=== PATIENT | female | born 1945 | race Caucasian/White ===

== ENCOUNTER 2021-11-20 12:42 | Outpatient (CLI) | payer MEDICARE, OTHER, SELFPAY ==
--- OUTSIDE RECORDS SUMMARY | 2021-11-20 12:44 | XMS_ITS | Encounter Summary ---
:1945 Author Organization [facility] Address [address] [place] [address]. [place] [address] Care Team Providers Name Role Phone Chele Mena MD Primary Care Provider [phone] Birgit Whipple MD Unavailable Dragan Ritter MD Unavailable Birgit Whipple MD Unavailable Reason for Visit Reason Comments Medication Refill PRIMIDONE 250 MG TABLET Encounter Details Date Type Department Care Team Description 04/08/2021 Refill [facility] Sarabjit Medication Refill [address] (PRIMIDONE 250 MG [phone] [place]) [place] [id number] (Wo rk) Social History Tobacco Use Types Packs/Day Years Used Date Never Smoker Smokeless Tobacco: Never Used Alcohol Use Standard Drinks/Week Comments No 0 (1 standard drink = 0.6 oz pure alcoho l) Sex Assigned at Date Recorded Female 04/04/2021 11:57 AM CLINICAL STAFF ANESTHESIOLOGIST documented as of this encounter Miscellaneous Notes Telephone Encounter - Shayna Bullard RN - 04/12/2021 11:26 AM CST PRIMIDONE 250 MG TABLET Last Written Prescription Date: 03/15/2021 Last Fill Quantity: 30, # refills: 0 Last Office Visit : 04/12/2021 Future Office visit: 03/20/2021 Routing refill request to provider for review/approval because: Is Pt taking 200 Mg's or 250 Mg's. Visit note from 04/11/2021 Mentions 200 Mg's AM and 200 Mg's PM But order from pharmacy is 250 Mg's Bedtime. Please send new updated order per Providers orders for Pt care. Thank you Shayna Bullard RN Central Triage Red Flags/Med Refills Plan 04/11/2021 - Continue Depakote 750 mg bid -Increase primidone 200 mg a.m. and 200 mg p.m. - Continue Lyrical 100-50-50 mg per day -??Obtain Depakote, primidone and Lyrica levels. - Follow-up in 1 year ?? ICAL STAFF ANESTHESIOLOGIST documented in this encounter Plan of Treatment Upcoming Encounters Date Type Specialty Care Team Description 03/20/2022 Virtual Visit Neurology Birgit Whipple MD [address] [place] [address] (Wo rk) documented as of this encounter Visit Diagnoses Diagnosis Essential tremor Essential and other specified forms of t remor documented in this encounter Care Teams Workforce Development Program Director Relationship Specialty Start Date End Date Chele Mena PCP - General Internal Medicine 11/28/12 MD [facility] [address] [place] [address] Birgit Whipple MD Neurology 06/16/14 Dragan Ritter MD Urology 06/10/17 [facility] [address] [id number] Birgit Whipple, Assigned Neuroscience 04/03/20 MD Provider [address] [place] [phone] documented as of this encounter
--- OUTSIDE RECORDS SUMMARY | 2021-11-20 12:44 | XMS_ITS | Encounter Summary ---
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 documented in this encounter Results (ABNORMAL) Symptomatic - 2019 Novel Coronavirus (COVID-19) (03/13/2021 9:18 AM MONTESSORI TEACHER) [facility] Method Time Signature COVID-19 Detected Not [facility]/14[facility]20[facility] Interpret[facility] (A) Detected 12:59 AM CENTRAL LAB MONTESSORI TEACHER Source Nares, left 03/14/2021 [facility] and right 12:59 AM CENTRAL LAB MONTESSORI TEACHER Specimen Anatomical Collection Method Collection Time Receive d Time (Source) Location / / Volume Laterality Swab (Source ENTIRE ANTERIOR Non-blood 03/13/2021 9:18 AM 2021 4:33 Required) NARIS / Unknown Collection / MONTESSORI TEACHER PM MONTESSORI TEACHER Unknown Narrative [facility] - 03/14/2021 12:59 AM MONTESSORI TEACHER Tested by Polymerase Chain Reaction (PCR ), Speedboat Operator-mediated amplification (TMA), or another nucleic acid amplifica tion test (NAAT). Andrew Garvey MD LAB_1 Performing Organization Address City/State/ZIP Code Phon e Number [facility] [address] [place] [phone] documented in this encounter Visit Diagnoses Diagnosis Contact with and (suspected) exposure to covid-19 documented in this encounter Additional Health Concerns Infection Onset Date Last Indicated Resolved Time R/O COVID19 03/13/2021 03/13/2021 03/14/2021 12:59 AM MONTESSORI TEACHER documented as of this encounter Care Teams Gas Systems Worker Relationship Specialty Start Date End Date Andrew Garvey MD PCP - General 10/05/[address] [place] [address] documented as of this encounter
--- OUTSIDE RECORDS SUMMARY | 2021-11-20 12:44 | XMS_ITS | Encounter Summary ---
:1945 Author Organization [facility] Address [address] [place] [address] Care Team Providers Name Role Phone Andrew Garvey MD Primary Care Provider Reason for Visit Reason Comments COVID Test Results Encounter Details Date Type Department Care Team Description 03/14/2021 Telephone [place] [facility] Andrew Garvey, COVID Test Results [address] [place] [address] [phone] [place], [place] [address] (Wo rk) Social History Tobacco Use Types Packs/Day Years Used Date Smoking Tobacco: Never Assessed Sex Assigned at Date Recorded Female 01/02/2021 9:25 PM BEVELER documented as of this encounter Nursing Notes Ingrid Aquino RN - 03/14/2021 8:07 AM CST Patient has viewed their result online and has covid risk score <4. Closing encounter. LER Ching Montiel - 03/14/2021 6:52 AM CST COVID-19 Interpretation (no units) Date Value 03/13/2021 Detected (A) LER documented in this encounter Plan of Treatment Not on filedocumented as of this encounter Visit Diagnoses Not on filedocumented in this encounter Additional Health Concerns Infection Onset Date Last Indicated Resolved Time R/O COVID19 03/13/2021 03/13/2021 03/14/2021 12:59 AM BEVELER COVID19 03/13/2021 03/13/2021 04/02/2021 3:17 AM BEVELER documented as of this encounter Care Teams Or Director Relationship Specialty Start Date End Date Andrew Garvey MD PCP - General 10/05/[address] [place] [address] documented as of this encounter
--- OUTSIDE RECORDS SUMMARY | 2021-11-20 12:44 | XMS_ITS | Encounter Summary ---
:1945 Author Organization [facility] Address [address] [place] [address]. [place] [address] Care Team Providers Name Role Phone Chele Mena MD Primary Care Provider Birgit Whipple MD Unavailable Dragan Ritter MD Unavailable Birgit Whipple MD Unavailable Reason for Visit Reason Comments Medication Refill Encounter Details Date Type Department Care Team Description 03/12/2021 Refill [facility] Birgit Whipple, Medication Refill [address]ana MD [address] [place], [place] [phone] [place] [address] (Wo rk) Social History Tobacco Use Types Packs/Day Years Used Date Never Smoker Smokeless Tobacco: Never Used Alcohol Use Standard Drinks/Week Comments No 0 (1 standard drink = 0.6 oz pure alcoho l) Sex Assigned at Date Recorded Female 04/04/2021 11:57 AM 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 Not all labs required. Scheduling has been notified to contact the pt for appointment. E CREWMEMBER/MLRS SERGEANT documented in this encounter Plan of Treatment Upcoming Encounters Date Type Specialty Care Team Description 03/20/2022 Virtual Visit Neurology Birgit Whipple MD [address] [place] [phone] (Wo rk) documented as of this encounter Visit Diagnoses Diagnosis Essential tremor Essential and other specified forms of t remor documented in this encounter Care Teams Material Handling Equipment Stevedore Relationship Specialty Start Date End Date Chele Mena PCP - General Internal Medicine 11/28/12 MD Hakan [facility] [address] [place] [address] Birgit Whipple MD Neurology 06/16/14 Dragan Ritter MD Urology 06/10/17 [facility] [address] [address] Birgit Whipple, Assigned Neuroscience 04/03/20 MD Provider [address] [place] [address] documented as of this encounter
--- OUTSIDE RECORDS SUMMARY | 2021-11-20 12:44 | XMS_ITS | Encounter Summary ---
:1945 Author Organization [facility] Address [address] [place] [address]. [place] [address] Care Team Providers Name Role Phone Chele Mena MD Primary Care Provider Birgit Whipple MD Unavailable Dragan Ritter MD Unavailable Birgit Whipple MD Unavailable Reason for Visit Reason Onset Date Comments Refill Request 03/16/2021 Encounter Details Date Type Department Care Team Description 03/16/2021 MyC Refill [facility] Birgit Whipple, Refill Request [address]ana MD [address] [place], [place] [phone] [place] [address] (Wo rk) Social History Tobacco Use Types Packs/Day Years Used Date Never Smoker Smokeless Tobacco: Never Used Alcohol Use Standard Drinks/Week Comments No 0 (1 standard drink = 0.6 oz pure alcoho l) Sex Assigned at Date Recorded Female 04/04/2021 11:57 AM PHYSICIST ACOUSTICS documented as of this encounter Miscellaneous Notes Telephone Encounter - Shawna Evans RN - 03/16/2021 1:38 PM CST Duplicate request primidone (MYSOLINE) 250 MG tablet 30 tablet 0 03/15/2021 No Sig - Route: Take 1 tablet (250 mg) by mouth At Bedtime For additional refills, please schedule a follow-up appointment. - Oral Sent to pharmacy as: Primidone 250 MG Oral Tablet (MYSOLINE) Class: E-Prescribe Order: [id number] E-Prescribing Status: Receipt confirmed by pharmacy (03/15/2021 10:58 AM PHYSICIST ACOUSTICS) Medication Administration Instructions For additional refills, please schedule a follow-up appointment. Pharmacy [facility] [address] [place] [facility] [address] [facility] Patient notified via [employer] ICIST ACOUSTICS documented in this encounter Plan of Treatment Upcoming Encounters Date Type Specialty Care Team Description 03/20/2022 Virtual Visit Neurology Birgit Whipple MD [address] [place] [phone] (Wo rk) documented as of this encounter Visit Diagnoses Diagnosis Essential tremor Essential and other specified forms of t remor documented in this encounter Care Teams Talent Development Analyst Relationship Specialty Start Date End Date Chele Mena PCP - General Internal Medicine 11/28/12 MD [facility] [address] [place] [address] Birgit Whipple MD Neurology 06/16/14 Dragan Ritter MD Urology 06/10/17 [facility] [address] [address] Birgit Whipple Assigned Neuroscience 04/03/20 MD Provider [address] [place] [phone] documented as of this encounter
--- OUTSIDE RECORDS SUMMARY | 2021-11-20 12:44 | XMS_ITS | Encounter Summary ---
:1945 Author Organization [facility] Address [address] [place] [address]. [place] [address] Care Team Providers Name Role Phone Chele Mena MD Primary Care Provider Birgit Whipple MD Unavailable Dragan Ritter MD Unavailable Birgit Whipple MD Unavailable Reason for Visit Reason Onset Date Comments Refill Request 09/28/2021 primidone (MYSOLINE) 50 MG tablet Encounter Details Date Type Department Care Team Description 09/28/2021 Refill [facility] Sarabjit Refill Request [address] (primidone (MYSOLINE) [address] MG tablet) [place] [address] [phone] (Wo rk) Social History Tobacco Use Types Packs/Day Years Used Date Never Smoker Smokeless Tobacco: Never Used Alcohol Use Standard Drinks/Week Comments No 0 (1 standard drink = 0.6 oz pure alcoho l) Sex Assigned at Date Recorded Female 04/04/2021 11:57 AM YOKER documented as of this encounter Miscellaneous Notes Telephone Encounter - Antoinette Davis RN - 10/02/2021 12:55 PM CDT primidone (MYSOLINE) 50 MG tablet Last Written Prescription Date: 04/11/21 Last Fill Quantity: 186, # refills: 6 Last Office Visit :04/11/21 Future Office visit: 03/20/22 Medium drug alert Warnings Override History for primidone (MYSOLINE) 50 MG tablet [[id number]] Overridden by Birgit Whipple MD on Apr 11, 2021 5:49 PM Drug-Drug 1. BARBITURATES / VALPROIC ACID [Level: Moderate] Other Orders: divalproex sodium extended-release (DEPAKOTE ER) 250 MG 24 hr tablet Overridden by Birgit Whipple MD on Apr 11, 2021 12:38 PM Drug-Drug 1. BARBITURATES / VALPROIC ACID [Level: Moderate] Other Orders: divalproex sodium extended-release (DEPAKOTE ER) 250 MG 24 hr tablet Allergy/Contraindication 1. OXCARBAZEPINE [Level: Cross-sensitive Class Match] 2. TRILEPTAL [Level: Cross-sensitive Class Match] Filling per [facility] medication refill protocols - seizure medications. Not all labs required. documented in this encounter Plan of Treatment Upcoming Encounters Date Type Specialty Care Team Description 03/20/2022 Virtual Visit Neurology Birgit Whipple MD [address] [place] [phone] (Wo rk) documented as of this encounter Visit Diagnoses Diagnosis Tremor Abnormal involuntary movements documented in this encounter Care Teams Care Trainer Relationship Specialty Start Date End Date Chele Mena PCP - General Internal Medicine 11/28/12 MD [facility] [address] [place] [address] Birgit Whipple MD Neurology 06/16/14 Dragan Ritter MD Urology 06/10/17 [facility] [id number] [place] [address] Birgit Whipple, Assigned Neuroscience 04/03/[address] [place] [address] documented as of this encounter
--- OUTSIDE RECORDS SUMMARY | 2021-11-20 12:44 | XMS_ITS | Encounter Summary ---
:1945 Author Organization [facility] Address [address] [place] [address]. 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 How would you like to obtain your AVS? MyChart If the video visit is dropped, the invitation should be resent by: Text to cell phone: [phone] Will anyone else be joining your video visit? Video Start Time: 12:12 Video-Visit Details Type of service: Video Visit Video End Time: 12:35 Originating Location (pt. Location): Home Distant Location (provider location): [facility] Platform used for Video Visit: [employer] Progress Note Patient: Kisha Gandara : 1945 Age: [age] year old Today's Virtual Visit: 04/11/2021 Epilepsy Data: Patient History Primary Epileptologist/Provider: (P) Birgit Whipple M.D. Epilepsy Syndrome: (P) Localization-related epilepsy unspecified Age of Onset: (P) 54 Etiology ??: (P) Unknown Other Relevant Dx/ Issues: (P) Inpatient evaluations 01/04 and 02/03. 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 History of Depakote-induced hyperammonemia. ?? Tests/Surgery History Last EEG: (P) 01/30/10 Last MRI: (P) 01/10/10 ?? Seizure Record Seizure Type 1: (P) Complex partial seizures unspecified Seizure Type 2: (P) Tonic-clonic seizures History of Present Illness: Kisha is participating in this virtual visit for a follow up on her seizures. She is accompanied by her who is contributing to the history. She has not had any seizures since last visit that she or her have noted. She is taking Depakote 750 mg twice a day. Tremors: she believes they only happen once in a while, but her believes they are worse. It's worse in her right hand. It usually happens when she is doing something, like when she is eating. She had Covid 02/2021. She did not have fever, or breathing difficulty. She had cough and sore throat. Her got it before her. She is fully vaccinated. Current Outpatient Medications Medication Sig Dispense Refill ??? ACETAMINOPHEN PO ??? Ascorbic Acid (VITAMIN C PO) ??? aspirin 81 MG tablet Take by mouth daily ??? blood glucose monitoring (SOFTCLIX) lancets 1 each by In Vitro route Use to test blood sugar four times daily or as directed. ??? OWSDUFA-[id number]-OVXKSFX D PO Take by mouth daily ??? Cholecalciferol (VITAMIN D3) 1000 units CAPS 1,000 capsules ??? clotrimazole (LOTRIMIN) 1 % cream Apply topically 2 times daily as needed ??? divalproex sodium extended-release (DEPAKOTE ER) 250 MG 24 hr tablet Take 3 tablets (750 mg) by mouth 2 times daily - Oral(Due for office visit before next refill,Please call [phone] to schedule) Thank you 540 tablet 3 ??? Glucose Blood (ACCU-CHEK BRAULIO PLUS ) ??? insulin glargine (BASAGLAR KWIKPEN) 100 UNIT/ML pen Inject Subcutaneous daily ??? Insulin Pen Needle (PEN NEEDLES 3) 31G X 5 MM MISC ??? lisinopril (PRINIVIL,ZESTRIL) 10 MG tablet Take 10 mg by mouth 2 times daily ??? metoprolol (LOPRESSOR) 50 MG tablet Take 50 mg by mouth 2 times daily ??? Multiple Vitamin (DAILY MULTIVITAMIN PO) ??? nystatin (NYSTOP) 445726 UNIT/GM POWD APPLY 1 APPLICATION TOPICALLY TWICE DAILY. ??? [place]-3 Fatty Acids (FISH OIL PO) ??? pregabalin (LYRICA) 50 MG capsule TAKE 2 CAPSULES BY MOUTH IN THE MORNING, 1 CAP AT NOON, AND 1 CAP IN THE EVENING. 124 capsule 2 ??? pregabalin (LYRICA) 50 MG capsule Take 2 capsules in the morning, 1 capsule in the afternoon, and 1 capsule at night 20 capsule 0 ??? primidone (MYSOLINE) 250 MG tablet Take 1 tablet (250 mg) by mouth At Bedtime For additional refills, please schedule a follow-up appointment. 30 tablet 0 ??? simvastatin (ZOCOR) 20 MG tablet Take by mouth daily ??? tolterodine ER (DETROL LA) 4 MG 24 hr capsule Take 4 mg by mouth daily ??? acetaminophen-codeine (TYLENOL #3) 300-30 MG per tablet Take 1-2 tablets by mouth daily as needed for moderate pain ??? amoxicillin (AMOXIL) 500 MG capsule Take 2,000 mg by mouth daily TAKE BEFORE DENTIST APPOINTMENTS ??? insulin aspart (NOVOLOG FLEXPEN) 100 UNIT/ML soln Inject Subcutaneous 3 times daily (with meals) ??? insulin glargine (LANTUS SOLOSTAR) 100 UNIT/ML PEN Inject Subcutaneous At Bedtime (Patient not taking: Reported on 04/11/2021) ??? LANsoprazole (PREVACID) 30 MG capsule Take by mouth daily ??? naproxen sodium 220 MG capsule Take 220 mg by mouth 2 times daily ??? oxybutynin (DITROPAN-XL) 5 MG 24 hr tablet Take 5 mg by mouth Medication Notes: AED Medication Compliance: compliant most of the time Assessment and Plan: ?? 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 ??She is taking Depakote 750 mg bid. She is also taking Lyrica 100-50-50 mainly for neuropathy and primidone 250 mg daily for tremors. ?? 2. Tremors: essential tremors, tremor??worsened by Depakote and??better on primidone, but according to her has been worse recently. I discussed increasing her primidone by 50 mg and change the schedule to twice a day. ?? 3. Diabetic neuropathy:??EMG/NCS showed mild to moderate sensorimotor polyneuropathy, which is likely due to her diabetes. She also has?? bilateral L5-S1 radiculopathy. We will monitor the symptoms. Since starting Lyrica she does not have pain but has some tingling in her toes. She does not like to inc rease her Lyrica. 4. Sleep apnea: She is currently using a mouth guard instead of CPAP. She sometimes feels tired during the day and takes a nap. Her has not noted frequent arousals at night. ?? - Continue Depakote 750 mg bid -Increase primidone 200 mg a.m. and 200 mg p.m. - Continue Lyrical 100-50-50 mg per day - Obtain Depakote, primidone and Lyrica levels. - Follow-up in 1 year As described above, I met with the patient and family for 23 minutes and during this time counselingwas greater than 50% of the visit time. This note was created in part by the use of [employer] voice recognition system. Inadvertent grammaticalerrors and typographical errors may still exist. Birgit Whipple MD L MANAGER documented in this encounter Plan of Treatment Upcoming Encounters Date Type Specialty Care Team Description 03/20/2022 Virtual Visit Neurology Birgit Whipple MD [address] [place] [phone] (Wo rk) Scheduled Orders Name Type Priority Associated Diagnoses Order S chedule Valproic acid Lab Routine Focal epilepsy (H) Expected : 04/11/2021 (Approximate), Expires: 2022 Valproic acid free Lab Routine Focal epilepsy (H) Exp ected: 04/11/2021 (Approximate), Expires: 2022 Primidone level Lab Routine Tremor Expected: (Approximate), Expires: 2022 Pregabalin Level: Lab Routine Diabetic polyneuropathy Expected: 04/11/2021 Random associated with diabetes (Ap proximate), mellitus due to underlying E xpires: 04/11/2022 condition (H) documented as of this encounter Visit Diagnoses Diagnosis Tremor - Primary Abnormal involuntary movements 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 (H) Focal epilepsy (H) Localization-related (focal) (partial) e pilepsy and epileptic syndromes with simple partial seizures, without mention of int ractable epilepsy Localization-related epilepsy (H) Localization-related (focal) (partial) e pilepsy and epileptic syndromes with simple partial seizures, without mention of int ractable epilepsy documented in this encounter Care Teams Housekeeping Manager Relationship Specialty Start Date End Date Chele Mena PCP - General Internal Medicine 11/28/12 MD [facility] [address] [place] [address] Birgit Whipple MD Neurology 06/16/14 Dragan Ritter MD Urology 06/10/17 [facility] [address] [place], [place] [address] Birgit Whipple, Assigned Neuroscience 04/03/20 MD Provider [address] [place] [address] documented as of this encounter
--- OUTSIDE RECORDS SUMMARY | 2021-11-20 12:44 | XMS_ITS | Encounter Summary ---
:1945 Author Organization [facility] Address [address] [place] [address]. [place] [address] Care Team Providers Name Role Phone Chele Mena MD Primary Care Provider [phone] Birgit Whipple MD Unavailable Dragan Ritter MD Unavailable Birgit Whipple MD Unavailable Reason for Visit Reason Comments Medication Refill PREGABALIN 50 MG CAPSULE Encounter Details Date Type Department Care Team Description 11/08/2021 Refill [facility] Sarabjit Medication Refill [address] (PREGABALIN 50 MG [address] [place]) [place] [phone] (Wo rk) Social History Tobacco Use Types Packs/Day Years Used Date Never Smoker Smokeless Tobacco: Never Used Alcohol Use Standard Drinks/Week Comments No 0 (1 standard drink = 0.6 oz pure alcoho l) Sex Assigned at Date Recorded Female 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 documented as of this encounter Miscellaneous Notes Telephone Encounter - Shayna Bullard RN - 11/09/2021 7:05 AM CDT PREGABALIN 50 MG CAPSULE Last Written Prescription Date: 04/11/2021 Last Fill Quantity: 124, # refills: 5 Last Office Visit : 04/11/2021 Future Office visit: 03/20/2022 Routing refill request to provider for review/approval because: Drug not on the [facility], [facility] or [facility] refill protocol or controlled substance Shayna Bullard RN Central Triage Red Flags/Med Refills documented in this encounter Plan of Treatment Upcoming Encounters Date Type Specialty Care Team Description 03/20/2022 Virtual Visit Neurology Birgit Whipple MD [address] [place] [address] [phone] (Wo rk) documented as of this encounter Visit Diagnoses Diagnosis 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 (H) documented in this encounter Care Teams Support Service Tech Relationship Specialty Start Date End Date Chele Mena PCP - General Internal Medicine 11/28/12 MD [facility] [address] [place] [address] Birgit Whipple MD Neurology 06/16/14 Dragan Ritter MD Urology 06/10/17 [facility] [address] [place] [address] Birgit Whipple Assigned Neuroscience 04/03/20 MD Provider [address] [place] [address] [phone] documented as of this encounter
--- OUTSIDE RECORDS SUMMARY | 2021-11-20 12:44 | XMS_ITS | Encounter Summary ---
:1945 Author Organization [facility] Address [address] [place] [address]. [place] [address] Care Team Providers Name Role Phone Chele Mena MD Primary Care Provider Birgit Whipple MD Unavailable Dragan Ritter MD Unavailable Birgit Whipple MD Unavailable Encounter Details Date Type Department Care Team Description 04/13/2021 Orders Only [facility] Birgit Whipple, [address] Angela Arana MD [address] [place] [phone] [place], [place] [phone] (Wo rk) Social History Tobacco Use Types Packs/Day Years Used Date Never Smoker Smokeless Tobacco: Never Used Alcohol Use Standard Drinks/Week Comments No 0 (1 standard drink = 0.6 oz pure alcoho l) Sex Assigned at Date Recorded Female 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 documented as of this encounter Plan of Treatment Upcoming Encounters Date Type Specialty Care Team Description 03/20/2022 Virtual Visit Neurology Birgit Whipple MD [address] [place] [address] [phone] (Wo rk) documented as of this encounter Visit Diagnoses Not on filedocumented in this encounter Care Teams Sheeting Puller Relationship Specialty Start Date End Date Chele Mena PCP - General Internal Medicine 11/28/12 MD Hakan [facility] [address] [place] [address] Birgit Whipple MD Neurology 06/16/14 Dragan Ritter MD Urology 06/10/17 [facility] [address] [phone] Birgit Whipple, Assigned Neuroscience 04/03/20 MD Provider [address] [place] [address] documented as of this encounter
--- OUTSIDE RECORDS SUMMARY | 2021-11-20 12:44 | XMS_ITS | Clinical Summary ---
:1945 Author Organization [facility] Address [address] [place] [address]. [place] [address] Care Team Providers Name Role Phone Chele Mena MD Primary Care Provider [phone] Birgit Whipple MD Unavailable Dragan Ritter MD Unavailable Birgit Whipple MD Unavailable Allergies Active Allergy Reactions Severity Noted Date Comments Bee Venom 06/19/2013 Lacosamide Other (See Comments) 02/21/2016 Oxcarbazepine Rash Low 02/21/2016 Seasonal Allergies 06/19/2013 Trileptal Rash Low 11/28/2012 Vimpat 11/28/2012 Delirium. Medications Medication Sig Dispensed Refills Start End Date Status Date simvastatin (ZOCOR) Take by mouth 0 Active 20 MG tablet daily metoprolol Take 50 mg by 0 Activ e (LOPRESSOR) 50 MG mouth 2 times tablet daily lisinopril Take 10 mg by 0 Activ e (PRINIVIL,ZESTRIL) mouth 2 times 10 MG tablet daily Ascorbic Acid 0 Active (VITAMIN C PO) [place]-3 Fatty Acids 0 Active (FISH OIL PO) Multiple Vitamin 0 Act hortencia (DAILY MULTIVITAMIN PO) aspirin 81 MG Take by mouth 0 Ac tive tablet daily LANsoprazole Take by mouth 0 Act hortencia (PREVACID) 30 MG daily capsule [id number] Take by mouth 0 Active ITAMIN D PO daily amoxicillin Take 2,000 mg by 0 A ctive (AMOXIL) 500 MG mouth daily TAKE capsule BEFORE DENTIST APPOINTMENTS clotrimazole Apply topically 0 A ctive (LOTRIMIN) 1 % 2 times daily as cream needed naproxen sodium 220 Take 220 mg by 0 Active MG capsule mouth 2 times daily ACETAMINOPHEN PO 0 Act hortencia acetaminophen-codei Take 1-2 tablets 0 Active ne (TYLENOL #3) by mouth daily 300-30 MG per as needed for tablet moderate pain blood glucose 1 each by In 0 Act hortencia monitoring Vitro route Use (SOFTCLIX) lancets to test blood sugar four times daily or as directed. Insulin Pen Needle 0 A ctive (PEN NEEDLES 05/10) 31G X 5 MM MISC Glucose Blood 0 Active (ACCU-CHEK BRAULIO PLUS ) insulin aspart Inject 0 Activ e (NOVOLOG FLEXPEN) Subcutaneous 3 100 UNIT/ML soln times daily (with meals) insulin glargine Inject 0 Act hortencia (LANTUS SOLOSTAR) Subcutaneous At 100 UNIT/ML PEN Bedtime Cholecalciferol 1,000 capsules 0 Active (VITAMIN D3) 1000 units CAPS oxybutynin Take 5 mg by 0 Active (DITROPAN-XL) 5 MG mouth 8 24 hr tablet nystatin (NYSTOP) APPLY 1 0 Ac tive [id number] UNIT/GM POWD APPLICATION 8 TOPICALLY TWICE DAILY. insulin glargine Inject 0 Act hortencia (BASAGLAR KWIKPEN) Subcutaneous 100 UNIT/ML pen daily tolterodine ER Take 4 mg by 0 Ac tive (DETROL LA) 4 MG 24 mouth daily hr capsule divalproex sodium Take 3 tablets 540 tablet 3 Active extended-release (750 mg) by 2 (DEPAKOTE ER) 250 mouth 2 times MG 24 hr daily - Oral tabletIndications: Localization-relate d epilepsy (H) primidone TAKE 2 TABS IN 186 tablet 6 Acti ve (MYSOLINE) 50 MG THE MORNING AND 2 tabletIndications: 4 TABS IN THE Tremor EVENING pregabalin (LYRICA) TAKE 2 CAPSULES 360 capsule 3 Active 50 MG BY MOUTH IN THE 2 capsuleIndications: MORNING, 1 CAP Diabetic AT NOON, AND 1 polyneuropathy CAP IN THE associated with EVENING. diabetes mellitus due to underlying condition (H) pregabalin (LYRICA) TAKE 2 CAPSULES 124 capsule 5 Discontinued 50 MG BY MOUTH IN THE 2 22 capsuleIndications: MORNING, 1 CAP Diabetic AT NOON, AND 1 polyneuropathy CAP IN THE associated with EVENING. diabetes mellitus due to underlying condition (H) Active Problems Problem Noted Date Epilepsy 02/10/2014 Encounters Date Type Specialty Care Team Description 11/08/2021 Refill Neurology Birgit Whipple MD Tx dication Refill (PREGABALIN 50 MG CAPSULE) 10/30/2021 Refill Neurology Birgit Whipple MD Me dication Refill 09/28/2021 Refill Neurology Birgit Whipple MD Re fill Request (primidone (MYSOLINE) 50 M G tablet) from Last 3 Months Immunizations Name Administration Dates Next Due FLUAD(HD)65+ QUAD 11/22/2020 Flu, Unspecified 01/25/2018 W8d7-10 Novel Flu 11/17/2009 HepA-Adult 01/25/2021 Influenza (High Dose) 3 valent 11/14/2018, 12/09/2017, 11/09 vaccine Influenza Vaccine, 6+MO IM 11/09/2015, 12/09/2014, 4, (QUADRIVALENT W/PRESERVATIVES) 11/21/2012 Pneumo Conj 13-V (2010&after) 04/07/2015 Pneumococcal 23 valent 10/23/2017, 12/01/2013, 09/08/2009, 03/11/2009 Td (Adult), Adsorbed 12/05/2018 Tdap (Adacel,Boostrix) 11/21/2012 Typhoid IM 01/25/2021 Zoster vaccine recombinant adjuvanted 11/13/2018 (SHINGRIX) Zoster vaccine, live 12/09/2012 Social History Tobacco Use Types Packs/Day Years Used Date Never Smoker Smokeless Tobacco: Never Used Tobacco Cessation: Counseling Given: No Alcohol Use Standard Drinks/Week Comments No 0 (1 standard drink = 0.6 oz pure alcoho l) Sex Assigned at Date Recorded Female 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 Last Filed Vital Signs Vital Sign Reading Time Taken Comments Blood Pressure 119/55 04/06/2019 10:05 AM SOLAR POWER INSTALLER Pulse 67 04/06/2019 10:05 AM SOLAR POWER INSTALLER Temperature 36.4 ??C (97.5 ??F) 02/06/2018 9:19 AM SOLAR POWER INSTALLER Respiratory Rate 16 06/10/2017 11:01 AM CDT Oxygen Saturation - - Inhaled Oxygen Concentration - - Weight 122.4 kg (269 lb 12.8 oz) 04/06/2019 10:05 AM SOLAR POWER INSTALLER Height 165.1 cm (5' 5) 02/06/2018 9:19 AM SOLAR POWER INSTALLER Body Mass Index 44.9 02/06/2018 9:19 AM SOLAR POWER INSTALLER Plan of Treatment Upcoming Encounters Date Type Specialty Care Team Description 03/20/2022 Virtual Visit Neurology Birgit Whipple MD [address] [place] [address] (Wo rk) Health Maintenance Due Date Last Done Comments ADVANCE CARE PLANNING 1945 ANNUAL REVIEW OF HM ORDERS 1945 DEXA 1945 DIABETIC FOOT EXAM 1945 EYE EXAM 1945 LIPID 1945 MICROALBUMIN 1945 HEPATITIS C SCREENING 09/01/1963 MEDICARE ANNUAL WELLNESS 2010 VISIT A1C 07/15/2018 04/17/2018 BMP 04/17/2019 04/17/2018 PHQ-2 (once per calendar 02/25/2021 03/29/2020, 04/06/2019, year) 02/06/2018, Additional history exists COVID-19 Vaccine (4 - 04/02/2021 11/30/2020, 05/07/2020, Booster for Pfizer series) 04/16/2020 INFLUENZA VACCINE (#1) 2021 11/22/2020, 11/14/2018, 01/25/2018, Additional history exists FALL RISK ASSESSMENT 04/11/2022 04/11/2021, 04/06/2019, 06/10/2017 DTAP/TDAP/TD IMMUNIZATION 12/05/2028 12/05/2018, 11/21/2012 , (3 - Td or Tdap) 11/21/2012 Pneumococcal Vaccine: 65+ Completed 10/23/2017, 04/07/2015 , Years 12/01/2013, Additional history exists ZOSTER IMMUNIZATION Completed 11/13/2018, 08/07/2018, 10/23/2017, Additional history exists IPV IMMUNIZATION Aged Out No longer eligi ble based on patient 's age to complete this topic MENINGITIS IMMUNIZATION Aged Out No longe r eligible based on patient 's age to complete this topic Insurance Payer Benefit Plan / Subscriber ID Effective Dates Phone Addre ss Type Group MEDICA MEDICA SELECT [id number] 2020-Presen [phone] [place] [address] [address] [place] [address] MEDICARE MEDICARE [id number] 2010-Presen [phone] ATTN CL AIMS Medicare t 0 [address] [place] [address] Kisha Gandara Personal/Famil Self 1945 [phone] (Home) [place] [address] Care Teams Cuff Slitter Relationship Specialty Start Date End Date Chele Mena PCP - General Internal Medicine 11/28/12 MD [facility] [address] [place] [address] Birgit Whipple MD Neurology 06/16/14 Dragan Ritter MD Urology 06/10/17 [facility] [id number] [place], [place] [phone] Birgit Whipple, Assigned Neuroscience 04/03/[address] [place] [address] [phone]
--- OUTSIDE RECORDS SUMMARY | 2021-11-20 12:44 | XMS_ITS | Encounter Summary ---
:1945 Author Organization [facility] Address [address] [place] [address]. [place] [address] Care Team Providers Name Role Phone Chele Mena MD Primary Care Provider [phone] Birgit Whipple MD Unavailable Dragan Ritter MD Unavailable Birgit Whipple MD Unavailable Reason for Visit Reason Comments Medication Refill PREGABALIN 50 MG CAPSULE Encounter Details Date Type Department Care Team Description 01/30/2021 Refill [facility] Sarabjit Medication Refill [address] M D (PREGABALIN 50 MG [address] [place]) [place] [phone] (Wo rk) Social History Tobacco Use Types Packs/Day Years Used Date Never Smoker Smokeless Tobacco: Never Used Alcohol Use Standard Drinks/Week Comments No 0 (1 standard drink = 0.6 oz pure alcoho l) Sex Assigned at Date Recorded Female 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 documented as of this encounter Miscellaneous Notes Telephone Encounter - Shayna Bullard RN - 01/31/2021 4:45 AM CST PREGABALIN 50 MG CAPSULE Last Written Prescription Date: 12/05/2020 Last Fill Quantity: 124, # refills: 1 Last Office Visit : 03/29/2020 Future Office visit: None Routing refill request to provider for review/approval because: Drug not on the [facility], [facility] or [facility] refill protocol or controlled substance Shayna Bullard RN Central Triage Red Flags/Med Refills EED OIL TEMPERER documented in this encounter Plan of Treatment Upcoming Encounters Date Type Specialty Care Team Description 03/20/2022 Virtual Visit Neurology Birgit Whipple MD [address] [place] [address] [phone] (Wo rk) documented as of this encounter Visit Diagnoses Diagnosis 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 (H) documented in this encounter Care Teams Defence Intelligence Analyst Relationship Specialty Start Date End Date Chele Mena PCP - General Internal Medicine 11/28/12 MD Hakan [facility] [address] [place] [address] Birgit Whipple MD Neurology 06/16/14 Dragan Ritter MD Urology 06/10/17 [facility] [address] [address] Birgit Whipple Assigned Neuroscience 04/03/20 MD Provider [address] [place] [address] [phone] documented as of this encounter
--- OUTSIDE RECORDS SUMMARY | 2021-11-20 12:44 | XMS_ITS | Encounter Summary ---
:1945 Author Organization [facility] Address [address] [place] [address]. [place] [address] Care Team Providers Name Role Phone Chele Mena MD Primary Care Provider [phone] Birgit Whipple MD Unavailable Dragan Ritter MD Unavailable Birgit Whipple MD Unavailable Reason for Visit Reason Comments Medication Refill Encounter Details Date Type Department Care Team Description 10/30/2021 Refill [facility] Birgit Whipple, Medication Refill [address] Angela Arana MD [address] [place], [place] [address] [place], [place] [address]258[address] (Wo rk) Social History Tobacco Use Types Packs/Day Years Used Date Never Smoker Smokeless Tobacco: Never Used Alcohol Use Standard Drinks/Week Comments No 0 (1 standard drink = 0.6 oz pure alcoho l) Sex Assigned at Date Recorded Female 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 documented as of this encounter Plan of Treatment Upcoming Encounters Date Type Specialty Care Team Description 03/20/2022 Virtual Visit Neurology Birgit Whipple MD [address] [place], [place] [address] (Wo rk) documented as of this encounter Visit Diagnoses Diagnosis Tremor Abnormal involuntary movements documented in this encounter Care Teams Vegetable Sorter Relationship Specialty Start Date End Date Chele Mena PCP - General Internal Medicine 11/28/12 MD Hakan [facility] [address] [place] [address] iBrgit Whipple MD Neurology 06/16/14 Dragan Ritter MD Urology 06/10/17 [facility] [address] [phone] Birgit Whipple, Assigned Neuroscience 04/03/20 MD Provider [address] [place] [address] [phone] documented as of this encounter
--- OUTSIDE RECORDS SUMMARY | 2021-11-20 12:44 | XMS_ITS | Encounter Summary ---
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
--- OUTSIDE RECORDS SUMMARY | 2021-11-20 12:44 | XMS_ITS | Encounter Summary ---
:1945 Author Organization [facility] Address [address] [place] [address] Care Team Providers Name Role Phone Andrew Garvey MD Primary Care Provider Encounter Details Date Type Department Care Team Description 03/13/2021 Notes/Orders [employer] [facility] Andrew Garvey Contact w [facility] MD Mitch (suspected) exposure [address] to covid-19 [place], [place] [address] [phone] [place], [place] [address] Social History Tobacco Use Types Packs/Day Years Used Date Smoking Tobacco: Never Assessed Sex Assigned at Date Recorded Female 01/02/2021 9:25 PM DIRECTOR OF RETENTION documented as of this encounter Plan of Treatment Not on filedocumented as of this encounter Results (ABNORMAL) Symptomatic - 2019 Novel Coronavirus (COVID-19) (03/13/2021 9:18 AM DIRECTOR OF RETENTION) [facility] Method Time Signature COVID-19 Detected Not 03/14/2021 [facility] Interpretation (A) Detected 12:59 AM CENTRAL LAB DIRECTOR OF RETENTION Source Nares, left 03/14/2021 [facility] and right 12:59 AM CENTRAL LAB DIRECTOR OF RETENTION Specimen Anatomical Collection Method Collection Time Receive d Time (Source) Location / / Volume Laterality Swab (Source ENTIRE ANTERIOR Non-blood 03/13/2021 9:18 AM 2021 4:33 Required) NARIS / Unknown Collection / DIRECTOR OF RETENTION PM DIRECTOR OF RETENTION Unknown Narrative [facility] - 03/14/2021 12:59 AM DIRECTOR OF RETENTION Tested by Polymerase Chain Reaction (PCR ), Accountant-mediated amplification (TMA), or another nucleic acid amplifica tion test (NAAT). Andrew Garvey MD LAB_1 Performing Organization Address City/State/ZIP Code Phon e Number [facility] [address] [address] documented in this encounter Visit Diagnoses Diagnosis Contact with and (suspected) exposure to covid-19 documented in this encounter Care Teams Compo Conveyor Operator Relationship Specialty Start Date End Date Andrew Garvey MD PCP - General 10/05/[address] [place] [address] documented as of this encounter
--- OUTSIDE RECORDS SUMMARY | 2021-11-20 12:44 | XMS_ITS | Clinical Summary ---
:1945 Author Organization [facility] Address [address] [address] Care Team Providers Name Role Phone Andrew Garvey MD Primary Care Provider Source Comments You are receiving this document as you are listed as the primary care provider,follow-up provider, or the patient has been referred to you for consultation.This is in compliance with the Medicare and Medicaid EHR Incentive Program,which states Providers who transition their patient to another setting of careor provider of care or refers their patient to another provider of care shouldprovide summarycare record for each transition of care or referral. madKast Allergies Active Allergy Reactions Severity Noted Date Comments Bee Venom Other, see comments 01/25/2021 Lacosamide Other, see comments 12/21/2020 Oxcarbazepine Hives, Rash High 12/27/2009 Medications Medication Sig Dispensed Refills Start Date End Date Status acetaminophen 0 Active (ACETAMINOPHEN 8 HOUR) 650 MG controlled release tablet aspirin EC (ASPIR-LOW) 0 Active 81 MG enteric coated tablet divalproex (DEPAKOTE ER) 0 11/05/2020 Active 250 MG 24 hour release tablet ACCU-CHEK GUIDE test 0 11/18/2020 Active strip HYDROcodone-acetaminophe 0 01/23/2021 Active n (NORCO) 5-325 MG tablet insulin glargine 0 01/06/2021 Ac tive (BASAGLAR) 100 UNIT/ML KWIKPEN insulin glargine 0 Act hortencia (LANTUS) 100 UNIT/ML injection ACCU-CHEK SOFTCLIX 0 11/18/2020 Active lancets lisinopril (ZESTRIL) 10 0 12/11/2020 Active MG tablet metoprolol tartrate 0 12/20/2020 Active (LOPRESSOR) 50 MG tablet nystatin (MYCOSTATIN) 0 01/05/2021 Active [id number] UNIT/GM powder pregabalin (LYRICA) 50 0 01/02/2021 Active MG capsule primidone (MYSOLINE) 250 0 12/19/2020 Active MG tablet simvastatin (ZOCOR) 20 0 11/19/2020 Active MG tablet tolterodine (DETROLLA) 4 0 11/22/2020 Active MG 24 hour release capsule omega-3 fatty acids Take 2 g by 0 Active (FISH OIL) 1000 MG mouth daily. capsule multivitamin (THERAGRAN) Take 1 Tablet by 0 Active tablet mouth daily. CALCIUM 0 Active CARBONATE-VITAMIN D OR Immunizations Name Administration Dates Next Due Flu Vac Preserv Free (3+yrs) 11/21/2012 HepA Adult (19+ yrs) 01/25/2021 Influenza IIV3 (Trivalent) Fluzone 11/14/2018, 12/09/2017, 0 11/09/2013 Highdose, 65+ Yrs (03627) Influenza IIV4 (Quadrivalent) 0.5mL 11/09/2015 (39867) Influenza IIV4 (Quadrivalent) Fluad, 11/22/2020 65+ Yrs Influenza, Unspecified Formulation 01/25/2018 PCV13 (Prevnar) 04/07/2015 PPSV23 (Pneumovax) 10/23/2017, 12/01/2013, 09/08/2009, 03/11/2009 Pfizer (Comirnaty) COVID-19, 12+ Yrs 11/30/2020, 05/07/2020, 04/16/2020 Purple Top Td (7+ yrs) 12/05/2018 Tdap 11/21/2012 Typhoid (Typhim Vi, IM) 01/25/2021 Zoster (Zostavax) 12/09/2012 Zoster RZV (Shingrix) 08/07/2018, 10/23/2017 Social History Tobacco Use Types Packs/Day Years Used Date Smoking Tobacco: Never Assessed Sex Assigned at Date Recorded Female 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 Plan of Treatment Health Maintenance Due Date Last Done Comments Hep C Screening (Preventive 1945 Services) Medicare Annual Wellness 1945 Visit Dexa 2010 COVID-19 Vaccine (4 - 01/25/2021 11/30/2020, 05/07/2020, Booster for Pfizer series) 04/16/2020 HepA (2 of 2 - Risk 2-dose 07/26/2021 01/25/2021 series) Influenza (#1) 2021 11/22/2020, 11/14/2018, 01/25/2018, Additional history exists DTaP/Tdap/Td (3 - Tdap) 12/05/2028 12/05/2018, 11/21/2012 Pneumococcal 65+ Yrs Completed 10/23/2017, 04/07/2015, 12/01/2013, Additional history exists Zoster/Shingles Completed 08/07/2018, 10/23/2017, 12/09/2012 HepB Aged Out No longer eligib le based on patient 's age to complete this topic Hib Aged Out No longer eligib le based on patient 's age to complete this topic IPV (Polio) Aged Out No longer eligib le based on patient 's age to complete this topic MCV4 Aged Out No longer eligib le based on patient 's age to complete this topic Insurance Payer Benefit Plan / Subscriber ID Effective Dates Phone Addre ss Type Group MEDICARE MEDICARE [id number] 2010-Jim [phone] ATTN CL AIMS Medicare t 0 [address] [place] [address] ArslanKisha raines Personal/Famil Self 1945 [phone] (Home) [place] [address] Care Teams Sustainable Development Policy Analyst Relationship Specialty Start Date End Date Andrew Garvey MD PCP - General 10/05/[address] [place] [address]
--- OUTSIDE RECORDS SUMMARY | 2021-11-20 12:44 | XMS_ITS | Encounter Summary ---
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 screening for COVID-19 documented in this encounter Results 2019 Novel Coronavirus (COVID-19) (02/06/2021 9:42 AM EXT JS DEVELOPER) [facility] Method Time Signature COVID-19 Not Not 02/06/2021 [facility] Interpretation Detected Detected 6:46 PM CENTRAL LAB EXT JS DEVELOPER Source Nares, left 02/06/2021 [facility] and right 6:46 PM CENTRAL LAB EXT JS DEVELOPER Specimen Anatomical Collection Method Collection Time Receive d Time (Source) Location / / Volume Laterality Swab (Source ENTIRE ANTERIOR Non-blood 02/06/2021 9:42 AM 2020 9:42 Required) NARIS / Unknown Collection / EXT JS DEVELOPER AM EXT JS DEVELOPER Unknown Narrative [facility] - 02/06/2021 6:46 PM EXT JS DEVELOPER Test performed by real-time PCR. This te st has been authorized by the FDA under an Emergency Use Authorization (EUA) for us e by authorized laboratories. Dejah Segal APRN, WEB ART DIRECTOR LAB_1 Performing Organization Address City/State/ZIP Code Phon e Number Grid20/20[facility] [email or web address] [facility] [address] [place] [address] documented in this encounter Visit Diagnoses Diagnosis Encounter for counseling for travel Encounter for screening for COVID-19 documented in this encounter Care Teams Keg Header Relationship Specialty Start Date End Date Andrew Garvey MD PCP - General 10/05/[address] [place] [address] documented as of this encounter
--- OUTSIDE RECORDS SUMMARY | 2021-11-20 12:45 | XMS_ITS | Encounter Summary ---
:1945 Author Organization [facility] Address [address] [place] [address]. [place] [address] Care Team Providers Name Role Phone Chele Mena MD Primary Care Provider [phone] Birgit Whipple MD Unavailable Dragan Ritter MD Unavailable Birgit Whipple MD Unavailable Encounter Details Date Type Department Care Team Description 09/23/2020 Telephone [facility] Neurology [facility] Candace Li MD [address] [place] [address] [place] [address] [phone] Social History Tobacco Use Types Packs/Day Years Used Date Never Smoker Smokeless Tobacco: Never Used Alcohol Use Standard Drinks/Week Comments No 0 (1 standard drink = 0.6 oz pure alcoho l) Sex Assigned at Date Recorded 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 I can see that she has requested Lyrica refill earlier this week and there is a pending approval noted in the chart from earlier today. It does appear that she is due for Lyrica based on medication review. Instructed I will prescribe a 5-day prescription for Lyrica, but long-term refills will need to go through her ordering provider who I will route this message to you. Dose was confirmed to be 100 mg in the morning, 50 mg in the afternoon and 50 mg at night. 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
--- OUTSIDE RECORDS SUMMARY | 2021-11-20 12:45 | XMS_ITS | Encounter Summary ---
:1945 Author Organization [place] Address [address] [place] [address]. 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 documented as of this encounter Plan of Treatment Upcoming Encounters Date Type Specialty Care Team Description 03/20/2022 Virtual Visit Neurology Birgit Whipple MD [address] [place] [address] (Wo rk) documented as of this encounter Visit Diagnoses Not on filedocumented in this encounter Care Teams Metal Crafts Teacher Relationship Specialty Start Date End Date Chele Mena MD PCP - General Internal Medicine 11/28/12 [facility] [address] [place] [address] Birgit Whipple MD MD Neurology 06/16/14 Dragan Ritter MD MD Urology 06/10/17 [facility] [address] [place] [address] documented as of this encounter
--- OUTSIDE RECORDS SUMMARY | 2021-11-20 12:45 | XMS_ITS | Encounter Summary ---
:1945 Author Organization [place] Address [address] [place] [address]. [place] [address] Care Team Providers Name Role Phone Chele Mena MD Primary Care Provider Birgit Whipple MD Unavailable Dragan Ritter MD Unavailable Reason for Visit Reason Comments Seizures 6 month follow up Encounter Details Date Type Department Care Team Description 06/10/2017 Office Visit [facility] Sarabjit, Essential tremor; 8672 Angela Genao MD Localization-related epilepsy (H); [place], [address] [facility] 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 (H) [place] [id number] Social History Tobacco Use Types Packs/Day Years Used Date Never Smoker Smokeless Tobacco: Never Used Alcohol Use Standard Drinks/Week Comments No 0 (1 standard drink = 0.6 oz pure alcoho l) Sex Assigned at Date Recorded 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 documented as of this encounter Last Filed Vital Signs Vital Sign Reading Time Taken Comments Blood Pressure 130/66 06/10/2017 11:01 AM CDT Pulse 77 06/10/2017 11:01 AM CDT Temperature 37.2 ??C (98.9 ??F) 06/10/2017 11:01 AM CDT Respiratory Rate 16 06/10/2017 11:01 AM CDT Oxygen Saturation - - Inhaled Oxygen Concentration - - Weight 121.7 kg (268 lb 6.4 oz) 06/10/2017 11:01 AM CDT Height - - Body Mass Index 42.13 08/30/2016 11:36 AM CDT documented in this encounter Progress Notes Birgit Whipple MD - 06/10/2017 11:00 AM CDT [facility] Progress Note Patient: Shashi Armstrong : 1945 Age: [age] year old Today's Office Visit: 06/10/2017 Epilepsy Data: Patient History Primary Epileptologist/Provider: (P) Birgit Whipple M.D. Epilepsy Syndrome: (P) Localization-related epilepsy unspecified Age of Onset: (P) 54 Etiology : (P) Unknown Other Relevant Dx/ Issues: (P) Inpatient evaluations 01/04 and 02/03. [facility] consulation 12/04 for nonconvulsive status epilepticus. History of Depakote-induced hyperammonemia. Tests/Surgery History Last EEG: (P) 01/30/10 Last MRI: (P) 01/10/10 Seizure Record Current Visit Date: (P) 06/10/17 Previous Visit Date: (P) 08/30/16 Months since last visit: (P) 9.33 Seizure Type 1: (P) Complex partial seizures unspecified Seizure Type 2: (P) Tonic-clonic seizures History of Present Illness: The patient is accompanied by her . She and her haven't noted any seizures since lastvisit. She is taking Depakote 750 mg bid. Tremors are better. She and her note it occasionally, not often. She is taking primidone 250mg at bedtime. Her pain and tingling in her feet are better. She still has a funny feeling in her feet. Lyrica has helped with pain and tingling. Current Outpatient Prescriptions Medication Sig Dispense Refill ??? Cholecalciferol (VITAMIN D3) 1000 units CAPS 1,000 capsules ??? oxybutynin (DITROPAN-XL) 5 MG 24 hr tablet Take 5 mg by mouth ??? nystatin (NYSTOP) 857604 UNIT/GM POWD APPLY 1 APPLICATION TOPICALLY TWICE DAILY. ??? divalproex sodium extended-release (DEPAKOTE ER) 250 MG 24 hr tablet Take 3 tablets (750 mg) by mouth 2 times daily 183 tablet 0 ??? LYRICA 50 MG capsule TAKE 2 CAPSULES BY MOUTH IN THE MORNING, 1 CAP AT NOON, AND 1 CAP IN THE EVENING. 120 capsule 3 ??? primidone (MYSOLINE) 250 MG tablet TAKE ONE TABLET BY MOUTH NIGHTLY AT BEDTIME 30 tablet 5 ??? ACETAMINOPHEN PO ??? blood glucose monitoring (SOFTCLIX) lancets 1 each by In Vitro route Use to test blood sugar four times daily or as directed. ??? Insulin Pen Needle (PEN NEEDLES 05/10) 31G X 5 MM MISC ??? Glucose Blood (ACCU-CHEK BRAULIO PLUS ) ??? insulin aspart (NOVOLOG FLEXPEN) 100 UNIT/ML soln Inject Subcutaneous 3 times daily (with meals) ??? insulin glargine (LANTUS SOLOSTAR) 100 UNIT/ML PEN Inject Subcutaneous At Bedtime ??? [place]-3 Fatty Acids (FISH OIL PO) ??? Multiple Vitamin (DAILY MULTIVITAMIN PO) ??? aspirin 81 MG tablet Take by mouth daily ??? simvastatin (ZOCOR) 20 MG tablet Take by mouth daily ??? metoprolol (LOPRESSOR) 50 MG tablet Take 50 mg by mouth 2 times daily ??? lisinopril (PRINIVIL,ZESTRIL) 10 MG tablet Take 10 mg by mouth 2 times daily ??? pregabalin (LYRICA) 50 MG capsule Take 50 mg by mouth ??? acetaminophen-codeine (TYLENOL #3) 300-30 MG per tablet Take 1-2 tablets by mouth daily as needed for moderate pain ??? amoxicillin (AMOXIL) 500 MG capsule Take 2,000 mg by mouth daily TAKE BEFORE DENTIST APPOINTMENTS ??? clotrimazole (LOTRIMIN) 1 % cream Apply topically 2 times daily as needed ??? naproxen sodium 220 MG capsule Take 220 mg by mouth 2 times daily ??? LANsoprazole (PREVACID) 30 MG capsule Take by mouth daily ??? KXKPAOI-[id number]-TRMJHHF D PO Take by mouth daily ??? Ascorbic Acid (VITAMIN C PO) Medication Notes: AED Medication Compliance: compliant most of the time Using a pill box: Yes Results for SHASHI ARMSTRONG ( ) as of 06/10/2017 11:38 Ref. Range 08/30/2016 12:01 Valproic Acid Level Latest Ref Range: 50 - 100 mg/L 68 Review of Systems: Lethargy / Tiredness: No Nausea / Vomiting: No Double Vision: No Sleepiness: Yes Depression: No Memory Problems: Yes Poor Balance: Yes Dizziness: No Appetite Changes: No Blurred Vision: No Headache: occasional : urinary frequency Sleep Changes: No Behavioral Changes: No Skin: negative Respiratory: No shortness of breath and No cough Cardiovascular: negative Have you experienced a traumatic fall since your last visit: NO Exam: BP 130/66 (BP Location: Right arm, Patient Position: Chair, Cuff Size: Adult Regular) Pulse 77 Temp 98.9 ??F (37.2 ??C) Resp 16 Wt 268 lb 6.4 oz (121.7 kg) BMI 42.13 kg/m2 Wt Readings from Last 5 Encounters: 06/10/17 268 lb 6.4 oz (121.7 kg) 08/30/16 274 lb 3.2 oz (124.4 kg) 02/21/16 262 lb 9.6 oz (119.1 kg) 08/16/15 259 lb (117.5 kg) 02/08/15 260 lb 3.2 oz (118 kg) General Appearance: Alert, awake, cooperative and pleasant, NAD Gait: walks with a cane, wide-based gait Attention Span: Normal Language/speech: No aphasia or dysarthria Extraocular Movements: Normal Coordination: Slight tremor in FNF Facial Sensation: Normal Facial Strength: Normal Tongue Strength: Normal Limb Strength: 5/5 bilaterally Limb Tone: Normal Limb Sensation: Intact to light touch Assessment and Plan: 1. Localization-related epilepsy: The patient did not have any known seizures since last visit. She is taking Depakote. She has some tremors, which is better on primidone. 2. Essential tremors: Is much better. She is taking primidone 250 mg in the evening 3. Diabetic neuropathy: Burning sensation, tingling and pain have improved much. She has a funny feeling in her feet, which cannot describe more; is not much bothersome. - Continue Depakote 750 mg bid - Continue primidone 250 mg in the evening - Continue Lyrica 100-50-50 As described above, I met with the patient for 25 minutes and during this time counseling was [id number]% of the visit time. 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 [address] [place] [address] Birgit Whipple MD MD Neurology 06/16/14 Dragan Ritter MD MD Urology 06/10/[address] [address] [place] [address] documented as of this encounter
--- OUTSIDE RECORDS SUMMARY | 2021-11-20 12:45 | XMS_ITS | Encounter Summary ---
:1945 Author Organization [place] Address [address] [place] [address]. 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 encounter Plan of Treatment Upcoming Encounters Date Type Specialty Care Team Description 03/20/2022 Virtual Visit Neurology Birgit Whipple MD [address] [place], [place] 8[address] (Wo rk) documented as of this encounter Visit Diagnoses Diagnosis 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
--- OUTSIDE RECORDS SUMMARY | 2021-11-20 12:45 | XMS_ITS | Encounter Summary ---
:1945 Author Organization [place] Address [address] [place] [address]. [place] [address] Care Team Providers Name Role Phone Chele Mena MD Primary Care Provider [phone] Birgit Whipple MD Unavailable Dragan Ritter MD Unavailable Birgit Whipple MD Unavailable Encounter Details Date Type Department Care Team Description 04/06/2020 [facility] Loc alization-related [facility] epilepsy (H) [address] [place] [address] Social History Tobacco Use Types Packs/Day Years Used Date Never Smoker Smokeless Tobacco: Never Used Alcohol Use Standard Drinks/Week Comments No 0 (1 standard drink = 0.6 oz pure alcoho l) Sex Assigned at Date Recorded Female 04/04/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 documented as of this encounter Plan of Treatment Upcoming Encounters Date Type Specialty Care Team Description 03/20/2022 Virtual Visit Neurology Birgit Whipple MD [address] [place] [address] (Wo rk) documented as of this encounter Procedures Procedure Name Priority Date/Time Associated Diagnosis Comme nts VALPROIC ACID FREE Routine 04/06/2020 2:41 PM Localization-rel ated Results for this AND TOTAL DIE TURNER epilepsy (H) procedure are i n the results section. VALPROIC ACID Routine 04/06/2020 2:41 PM Localization-related Results for this DIE TURNER epilepsy (H) procedure are i n the results section. AST Routine 04/06/2020 2:41 PM Localization-related R esults for this DIE TURNER epilepsy (H) procedure are i n the results section. ALT Routine 04/06/2020 2:41 PM Localization-related R esults for this DIE TURNER epilepsy (H) procedure are i n the results section. CBC WITH PLATELETS Routine 04/06/2020 2:41 PM Localization-rel ated Results for this DIE TURNER epilepsy (H) procedure are i n the results section. documented in this encounter Results Valproic Acid level (04/06/2020 2:41 PM DIE TURNER) athologist Signature Valproic Acid 63 50 - 100 04/07/2020 [facility] mg/L 3:[address] [facility] Specimen Anatomical Collection Method Collection Time Receive d Time (Source) Location / / Volume Laterality Blood specimen 04/06/2020 2:41 PM 021 2:42 (specimen) DIE TURNER PM DIE TURNER Birgit Whipple MD LAB - BLOOD ORDERABLES Performing Organization Address City/State/ZIP Code Phon e Number [facility] [address] [place], [place] [id number] [place] [address] Valproic Acid Free (04/06/2020 2:41 PM DIE TURNER) athologist Signature Valproic Acid 6.0 6.0 - 20.0 04/07/2020 [facility] Free ug/mL 12:07 PM DIE TURNER [facility] Comment: Analysis performed by [employer] [place] [address] Specimen Anatomical Collection Method Collection Time Receive d Time (Source) Location / / Volume Laterality Blood specimen 04/06/2020 2:41 PM 021 2:42 (specimen) DIE TURNER PM DIE TURNER Birgit Whipple MD LAB - BLOOD ORDERABLES Performing Organization Address City/[facility]/ZIP Code Phon e Number [facility] [address] [place] [address] CBC with platelets (04/06/2020 2:41 PM DIE TURNER) athologist Signature WBC 8.3 4.0 - 11.0 04/06/2020 [place] 10e9/L 3:03 PM [facility] RBC Count 4.34 3.8 - 5.2 04/06/2020 [place] 10e12/L 3:03 PM [facility] Hemoglobin 13.4 11.7 - 04/06/2020 [facility] 15.7 g/dL 3:03 PM [facility] Hematocrit 41.3 35.0 - 04/06/2020 [place] 47.0 % 3:03 PM [facility] MCV 95 78 - 100 04/06/2020 [place] fl 3:03 PM [facility] MCH 30.9 26.5 - 04/06/2020 [place] 33.0 pg 3:03 PM [facility] MCHC 32.4 31.5 - 04/06/2020 [place] 36.5 g/dL 3:03 PM [facility] RDW 14.0 10.0 - 04/06/2020 [place] 15.0 % 3:03 PM [facility] Platelet Count 234 150 - 450 04/06/2020 [place] 10e9/L 3:03 PM [facility] Specimen Anatomical Collection Method Collection Time Receive d Time (Source) Location / / Volume Laterality Blood specimen 04/06/2020 2:41 PM 021 2:42 (specimen) DIE TURNER PM DIE TURNER Birgit Whipple MD LAB - BLOOD ORDERABLES Performing Organization Address City/[facility]/ZIP Code Phon e Number [facility] [address] [place] [address] AST (SGOT) (04/06/2020 2:41 PM DIE TURNER) athologist Signature AST 26 0 - 45 U/L 04/07/2020 [facility] 11:34 AM DIE TURNER [facility] Specimen Anatomical Collection Method Collection Time Receive d Time (Source) Location / / Volume Laterality Blood specimen 04/06/2020 2:41 PM 021 2:42 (specimen) DIE TURNER PM DIE TURNER Birgit Whipple MD LAB - BLOOD ORDERABLES Performing Organization Address City/[facility]/ZIP Code Phon e Number [facility] [address] [place] [address] ALT (04/06/2020 2:41 PM DIE TURNER) P athologist Signature ALT 40 0 - 50 U/L 04/07/2020 [facility] 11:34 AM DIE TURNER [facility] Specimen Anatomical Collection Method Collection Time Receive d Time (Source) Location / / Volume Laterality Blood specimen 04/06/2020 2:41 PM 021 2:42 (specimen) DIE TURNER PM DIE TURNER Birgit Whipple MD LAB - BLOOD ORDERABLES Performing Organization Address City/[facility]/ZIP Code Phon e Number [facility] [address] [address] documented in this encounter Visit Diagnoses Diagnosis Localization-related epilepsy (H) Localization-related (focal) (partial) e pilepsy and epileptic syndromes with simple partial seizures, without mention of int ractable epilepsy documented in this encounter Care Teams Record Librarian Relationship Specialty Start Date End Date Chele Mena PCP - General Internal Medicine 11/28/12 MD [place] [facility] [address] [place] [address] Birgit Whipple MD Neurology 06/16/14 Dragan Ritter MD Urology 06/10/17 [facility] [address] [id number] Birgit Whipple Assigned Neuroscience 04/03/[address] [place] [address] documented as of this encounter
--- OUTSIDE RECORDS SUMMARY | 2021-11-20 12:45 | XMS_ITS | Encounter Summary ---
:1945 Author Organization [place] Address [address] [place] [address]. 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 documented as of this encounter Plan of Treatment Upcoming Encounters Date Type Specialty Care Team Description 03/20/2022 Virtual Visit Neurology Birgit Whipple MD [address] [place] [address] (Wo rk) documented as of this encounter Visit Diagnoses Not on filedocumented in this encounter Care Teams Pony Trimmer Relationship Specialty Start Date End Date Chele Mena PCP - General Internal Medicine 11/28/12 MD [place] [facility] [address] [place] [address] Birgit Whipple MD Neurology 06/16/14 Dragan Ritter MD Urology 06/10/17 [facility] [address] [address] Birgit Whipple, [facility] Neuroscience 04/03/[address] [place] [id number] documented as of this encounter
--- OUTSIDE RECORDS SUMMARY | 2021-11-20 12:45 | XMS_ITS | Encounter Summary ---
:1945 Author Organization [facility] Address [address] [place] [address]. [place] [address] Care Team Providers Name Role Phone Chele Mena MD Primary Care Provider [phone] Birgit Whipple MD Unavailable Dragan Ritter MD Unavailable Reason for Visit Reason Comments RECHECK Encounter Details Date Type Department Care Team Description 02/06/2018 Office Visit [facility] Sarabjit Localization-related epileps y (H); 1059 Angela Genao MD 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 (H); [place], [address] [place] [address] [id number] Social History Tobacco Use Types Packs/Day Years Used Date Never Smoker Smokeless Tobacco: Never Used Alcohol Use Standard Drinks/Week Comments No 0 (1 standard drink = 0.6 oz pure alcoho l) Sex Assigned at Date Recorded Female 04/04/2021 11:57 AM 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 documented as of this encounter Last Filed Vital Signs Vital Sign Reading Time Taken Comments Blood Pressure 113/62 02/06/2018 9:19 AM GAMBLING CASHIER Pulse 72 02/06/2018 9:19 AM GAMBLING CASHIER Temperature 36.4 ??C (97.5 ??F) 02/06/2018 9:19 AM GAMBLING CASHIER Respiratory Rate - - Oxygen Saturation - - Inhaled Oxygen Concentration - - Weight 123.1 kg (271 lb 6.4 oz) 02/06/2018 9:19 AM GAMBLING CASHIER Height 165.1 cm (5' 5) 02/06/2018 9:19 AM GAMBLING CASHIER Body Mass Index 45.16 02/06/2018 9:19 AM GAMBLING CASHIER documented in this encounter Patient Instructions Patient InstructionsLoida Li MA - 02/06/2018 9:30 AM CST Preventive Care: Colorectal Cancer Screening: During our visit today, we discussed that it is recommended you receivecolorectal cancer screening. Please call or make an appointment with your primary care provider to discuss this. You may also call the [facility] scheduling line ([phone]) to set up a colonoscopy appointment. LING CASHIER documented in this encounter Progress Notes Birgit Whipple MD - 02/06/2018 9:30 AM CST [facility] Progress Note Patient: Kisha Gandara : 1945 Age: [age] year old Today's Office Visit: 02/06/2018 Epilepsy Data: Patient History Primary Epileptologist/Provider: (Colette) Birgit Whipple M.D. Epilepsy Syndrome: (P) Localization-related epilepsy unspecified Age of Onset: (P) 54 Etiology : (P) Unknown Other Relevant Dx/ Issues: (P) Inpatient evaluations 01/04 [address] 02/[address] 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 History of Depakote-induced hyperammonemia. Tests/Surgery History Last EEG: (P) 01/30/10 Last MRI: (P) 01/10/10 Seizure Record Current Visit Date: (P) 02/06/18 Previous Visit Date: (P) 06/10/17 Months since last visit: (P) 7.92 Seizure Type 1: (P) Complex partial seizures unspecified Seizure Type 2: (P) Tonic-clonic seizures History of Present Illness: Lele is accompanied by her for a follow up on her seizures. She did not have any seizuresthat she or her are aware of. She is taking Depakote 750 mg twice a day. Her last level was 68. Tremors: stable, worsens in the morning or sometimes before she takes her primidone, but not that bothersome. Neuropathy: Akila is somewhat helping with tingling and pain, but sxs not completely controlled, pain is going up on her legs and into her thighs. Other issues: She had a kidney cyst removal in July. She has a surgery scheduled next week for removing the scar tissue over her left breast and placing a new implant. Current Outpatient Medications Medication Sig Dispense Refill ??? Ascorbic Acid (VITAMIN C PO) ??? aspirin 81 MG tablet Take by mouth daily ??? blood glucose monitoring (SOFTCLIX) lancets 1 each by In Vitro route Use to test blood sugar four times daily or as directed. ??? IJLFSOF-BWAHLAYPW-EDGBCNM D PO Take by mouth daily ??? Cholecalciferol (VITAMIN D3) 1000 units CAPS 1,000 capsules ??? clotrimazole (LOTRIMIN) 1 % cream Apply topically 2 times daily as needed ??? divalproex sodium extended-release (DEPAKOTE ER) 250 MG 24 hr tablet Take 3 tablets (750 mg) by mouth 2 times daily 550 tablet 3 ??? Glucose Blood (ACCU-CHEK BRAULIO PLUS ) ??? insulin aspart (NOVOLOG FLEXPEN) 100 UNIT/ML soln Inject Subcutaneous 3 times daily (with meals) ??? insulin glargine (LANTUS SOLOSTAR) 100 UNIT/ML PEN Inject Subcutaneous At Bedtime ??? Insulin Pen Needle (PEN NEEDLES 05/10) 31G X 5 MM MISC ??? LANsoprazole (PREVACID) 30 MG capsule Take by mouth daily ??? lisinopril (PRINIVIL,ZESTRIL) 10 MG tablet Take 10 mg by mouth 2 times daily ??? metoprolol (LOPRESSOR) 50 MG tablet Take 50 mg by mouth 2 times daily ??? Multiple Vitamin (DAILY MULTIVITAMIN PO) ??? naproxen sodium 220 MG capsule Take 220 mg by mouth 2 times daily ??? nystatin (NYSTOP) [id number] UNIT/GM POWD APPLY 1 APPLICATION TOPICALLY TWICE DAILY. ??? [place]-3 Fatty Acids (FISH OIL PO) ??? oxybutynin (DITROPAN-XL) 5 MG 24 hr tablet Take 5 mg by mouth ??? pregabalin (LYRICA) 50 MG capsule TAKE 2 CAPSULES BY MOUTH IN THE MORNING, 1 CAP AT NOON, AND 1 CAP IN THE EVENING. 360 capsule 3 ??? primidone (MYSOLINE) 250 MG tablet TAKE ONE TABLET BY MOUTH NIGHTLY AT BEDTIME 90 tablet 3 ??? simvastatin (ZOCOR) 20 MG tablet Take by mouth daily ??? ACETAMINOPHEN PO ??? acetaminophen-codeine (TYLENOL #3) 300-30 MG per tablet Take 1-2 tablets by mouth daily as needed for moderate pain ??? amoxicillin (AMOXIL) 500 MG capsule Take 2,000 mg by mouth daily TAKE BEFORE DENTIST APPOINTMENTS Medication Notes: AED Medication Compliance: compliant most of the time Review of Systems: Lethargy / Tiredness: Yes Nausea / Vomiting: No Double Vision: No Sleepiness: Yes Depression: No Memory Problems: No Poor Balance: Yes Dizziness: No Appetite Changes: No Blurred Vision: No Sleep Changes: No Behavioral Changes: No Skin: negative Respiratory: No shortness of breath and No cough Cardiovascular: negative Have you experienced a traumatic fall since your last visit: NO Woman Care: Patient is: Sexually Active: No Type of Control: none : no. Planning to become : No Exam: BP 113/62 (BP Location: Right arm, Patient Position: Chair, Cuff Size: Adult Large) Pulse 72 Temp 97.5 ??F (36.4 ??C) (Temporal) Ht 5' 5 (165.1 cm) Wt 271 lb 6.4 oz (123.1 kg) BMI 45.16 kg/m?? 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 She is taking Depakote 750 mg bid. She is also taking Lyrica 100-50-50 for neuropathy and primidone 250 mg daily for tremors. 2. Tremors: most likely essential tremors, worsened by Depakote: better on primidone. 3. Diabetic neuropathy: pain has moved up to his thighs. - Continue Depakote 750 mg bid - Continue Primidone 250 mg daily - Continue Lyrical 100-50-50 mg per day As described above, I met with the patient for 20 minutes and during this time counseling was [id number]% of the visit time. Birgit Whipple MD LING CASHIER documented in this encounter Plan of Treatment Upcoming Encounters Date Type Specialty Care Team Description 03/20/2022 Virtual Visit Neurology Birgit Whipple MD [address] [place] [address] [phone] (Wo rk) documented as of this encounter Visit Diagnoses Diagnosis Localization-related epilepsy (H) Localization-related (focal) (partial) e pilepsy and epileptic syndromes with simple partial seizures, without mention of int ractable epilepsy 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 (H) Essential tremor Essential and other specified forms of t remor documented in this encounter Care Teams Title Camera Operator Relationship Specialty Start Date End Date Chele Mena MD PCP - General Internal Medicine 11/28/12 [facility] [address] [place] [address] Birgit Whipple MD MD Neurology 06/16/14 Dragan Ritter MD MD Urology 06/10/17 [facility] [address] [address] documented as of this encounter
--- OUTSIDE RECORDS SUMMARY | 2021-11-20 12:45 | XMS_ITS | Encounter Summary ---
:1945 Author Organization [facility] Address [address] [place] [address]. [place] [address] Care Team Providers Name Role Phone Chele Mena MD Primary Care Provider [phone] Birgit Whipple MD Unavailable Dragan Ritter MD Unavailable Abhishek Salguero MD Unavailable Encounter Details Date Type Department Care Team Description 03/30/2020 Travel Social History Tobacco Use Types Packs/Day Years Used Date Never Smoker Smokeless Tobacco: Never Used Alcohol Use Standard Drinks/Week Comments No 0 (1 standard drink = 0.6 oz pure alcoho l) Sex Assigned at Date Recorded Female 04/04/2021 11:57 AM DIRECTOR OF MEDICAL REVIEW COVID-19 Exposure Response Date Recorded In the last month, have you been in contact with No / Unsure 03/30/2020 11:20 AM DIRECTOR OF MEDICAL REVIEW someone who was confirmed or suspected to have Coronavirus / COVID-19? documented as of this encounter Plan of Treatment Upcoming Encounters Date Type Specialty Care Team Description 03/20/2022 Virtual Visit Neurology Birgit Whipple MD [address] [place] [address] (Wo rk) documented as of this encounter Visit Diagnoses Not on filedocumented in this encounter Care Teams Community Development Manager Relationship Specialty Start Date End Date Reister, Elaine PCP - General Internal Medicine 11/28/12 MD Hakan [facility] [address] [place] [address] Birgit Whipple MD Neurology 06/16/14 Dragan Ritter MD Urology 06/10/17 [facility] [address] [address] Abhishek Salguero MD Assigned Neuroscience 12/18/19 04/02/[address] [place] [address] documented as of this encounter
--- OUTSIDE RECORDS SUMMARY | 2021-11-20 12:45 | XMS_ITS | Encounter Summary ---
:1945 Author Organization [facility] Address [address] [place] [address]. [place] [address] Care Team Providers Name Role Phone Chele Mena MD Primary Care Provider [phone] Birgit Whipple MD Unavailable Dragan Ritter MD Unavailable Birgit Whipple MD Unavailable Reason for Visit Reason Comments Medication Refill PREGABALIN 50 MG CAPSULE Encounter Details Date Type Department Care Team Description 11/30/2020 Refill [facility] Sarabjit Medication Refill [address] (PREGABALIN 50 MG [address] [place]) [place] [phone] (Wo rk) Social History Tobacco Use Types Packs/Day Years Used Date Never Smoker Smokeless Tobacco: Never Used Alcohol Use Standard Drinks/Week Comments No 0 (1 standard drink = 0.6 oz pure alcoho l) Sex Assigned at Date Recorded Female 04/04/2021 11:57 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 Also hoping to get a larger supply, if possible, 3 month. Telephone Encounter - Shayna Bullard RN - 12/01/2020 8:05 AM CDT PREGABALIN 50 MG CAPSULE Last Written Prescription Date: 10/03/2020 Last Fill Quantity: 124, # refills: 1 Last Office Visit : 03/29/2020 Future Office visit: None Routing refill request to provider for review/approval because: Drug not on the [facility], P or [facility] refill protocol or controlled substance Shayna Bullard RN Central Triage Red Flags/Med Refills documented in this encounter Plan of Treatment Upcoming Encounters Date Type Specialty Care Team Description 03/20/2022 Virtual Visit Neurology Birgit Whipple MD [address] [place] [address] [phone] (Wo rk) documented as of this encounter Visit Diagnoses Diagnosis 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 (H) documented in this encounter Care Teams Application Security Consultant Relationship Specialty Start Date End Date Chele Mena PCP - General Internal Medicine 11/28/12 MD Hakan [facility] [address] [place] [address] Birgit Whipple MD Neurology 06/16/14 Dragan Ritter MD Urology 06/10/17 [facility] [address] [place] [id number] Birgit Whipple Assigned Neuroscience 04/03/20 MD Provider [address] [place] [address] [phone] documented as of this encounter
--- OUTSIDE RECORDS SUMMARY | 2021-11-20 12:45 | XMS_ITS | Encounter Summary ---
:1945 Author Organization [facility] Address [address] [place] [address]. [place] [address] Care Team Providers Name Role Phone Chele Mena MD Primary Care Provider [phone] Birgit Whipple MD Unavailable Dragan Ritter MD Unavailable Abhishek Salguero MD Unavailable Birgit Whipple MD Unavailable Encounter Details Date Type Department Care Team Description 04/16/2018 Records - [facility] MD [facility] [address] PHYSIC[facility]ANS [place] [address] [place] [phone] [place] [address] [place], [place] [id number] Social History Tobacco Use Types Packs/Day Years Used Date Never Smoker Smokeless Tobacco: Never Used Alcohol Use Standard Drinks/Week Comments No 0 (1 standard drink = 0.6 oz pure alcoho l) Sex Assigned at Date Recorded Female 04/04/2021 11:57 AM 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 documented as of this encounter Plan of Treatment Upcoming Encounters Date Type Specialty Care Team Description 03/20/2022 Virtual Visit Neurology Birgit Whipple MD [address] [place] [phone] (Wo rk) documented as of this encounter Procedures Procedure Name Priority Date/Time Associated Diagnosis Comme nts BASIC METABOLIC Routine 04/17/2018 5:47 AM Result s for this PANEL TUNNEL ELASTIC OPERATOR LOCKSTITCH procedure are i n the results section. documented in this encounter Results (ABNORMAL) Basic metabolic panel (04/17/2018 5:47 AM TUNNEL ELASTIC OPERATOR LOCKSTITCH) Analysis Performed At Patho logist Time Signature Sodium 133 (L) 136 - 145 04/17/2018 HEALTH mmol/L 3:26 PM [facility] Potassium 4.7 3.5 - 5.0 04/17/2018 [facility]ALTH mmol/L 3:26 PM [facility] Chloride 98 98 - 107 04/17/2018 [facility] mmol/L 3:26 PM [facility] Carbon Dioxide 24 22 - 31 04/17/2018 [facility] (CO2) mmol/L 3:26 PM [facility] Anion Gap 11 5 - 18 04/17/2018 [facility] mmol/L 3:26 PM [facility] Glucose 131 (H) 70 - 125 04/17/2018 [facility] mg/dL 3:26 PM [facility] Calcium 9.5 8.5 - 10.5 04/17/2018 [facility]ALTH mg/dL 3:26 PM [facility] Urea Nitrogen 12 8 - 28 04/17/2018 [facility]ALTH mg/dL 3:26 PM [facility] Creatinine 0.69 0.60 - 04/17/2018 M [facility] 1.10 mg/dL 3:26 PM [facility] GFR Estimate If >60 >60 04/17/2018 HEALTH Black mL/min/1.7 3:[address] LABORATORY GFR Estimate >60 >60 04/17/2018 [facility] mL/min/1.7 3:26 PM [facility] Specimen Anatomical Collection Method / Collection Time Recei es Time (Source) Location / Volume Laterality Blood specimen STRUCTURE OF RIGHT Venipuncture / 04/17/2018 5:47 2:22 (specimen) UPPER LIMB / Unknown AM TUNNEL ELASTIC OPERATOR LOCKSTITCH PM TUNNEL ELASTIC OPERATOR LOCKSTITCH Unknown Narrative [facility] - 04/17/2018 3:26 PM TUNNEL ELASTIC OPERATOR LOCKSTITCH Fasting Glucose reference range is 70-99 mg/dL per [place] [employer] (ADA) arnaldo juan. [facility] MD LAB - BLOOD ORDERABLES Performing Organization Address City/State/ZIP Code Phon e Number [facility] [place] [address] [address] [facility] [address] [place] [address], [facility] documented in this encounter Visit Diagnoses Not on filedocumented in this encounter Care Teams Mineral Technologist Relationship Specialty Start Date End Date Chele Mena PCP - General Internal Medicine 11/28/12 MD Hakan [facility] [address] [place] [address] Birgit Whipple MD Neurology 06/16/14 Dragan Ritter MD Urology 06/10/17 [facility] [address] [address] Abhishek Salguero MD Assigned Neuroscience 12/18/19 04/02/[address] [place] [address] [phone] Birgit Whipple Assigned Neuroscience 04/03/[address] [id number] documented as of this encounter
--- OUTSIDE RECORDS SUMMARY | 2021-11-20 12:45 | XMS_ITS | Encounter Summary ---
:1945 Author Organization [facility] Address [address] [place] [address]. [place] [address] Care Team Providers Name Role Phone Chele Mena MD Primary Care Provider [phone] Birgit Whipple MD Unavailable Reason for Visit Reason Onset Date Comments Medication Question 01/30/2017 Dispensing pharmacy calling in Encounter Details Date Type Department Care Team Description 01/30/2017 [facility]phone [facility] Mitch Tobar, ornamental metalwork designer Question [address], ([facility] pharmacy [address] (Work) calling in) [place], [place] [phone] [address] (Fax) [phone] Social History Tobacco Use Types Packs/Day Years Used Date Never Smoker Smokeless Tobacco: Never Used Sex Assigned at Date Recorded Female 04/04/2021 11:57 AM 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 The computer system in the pharmacy is requiring the dispensing pharmacist to document that he/she has spoken with the provider office to make sure the prescribing provider is aware there is a potential interaction between depakote and Primidone. I discussed with Catherine that has checked levels of both medications (levels provided to Catherine), and recommends appointment with the patient every 6 months (needs to have an appointment scheduled for Mar 2017 - will message scheduling) Catherine will document this information which will satisfy the requirements of the dispensing system. PICKER Telephone Encounter - Mitch Tobar RN - 01/30/2017 3:15 PM CST ----- Message from Francine Krueger sent at 01/30/2017 3:02 PM PEAR PICKER ----- Caller: Catherine Relationship to Patient: [facility] Call Back Number: Reason for Call: Pharmacy is calling to discuss a possible reaction with Primidone & Divalproex.Pharmacy is holding medication until approved by our office. Thank you, Francine PICKER documented in this encounter Plan of Treatment Upcoming Encounters Date Type Specialty Care Team Description 03/20/2022 Virtual Visit Neurology Birgit Whipple MD [address] [place] [id number] (Wo rk) documented as of this encounter Visit Diagnoses Not on filedocumented in this encounter Care Teams Glass Sagger Relationship Specialty Start Date End Date Chele Mena MD PCP - General Internal Medicine 11/28/12 [facility] [address] [place] [address] Birgit Whipple MD MD Neurology 06/16/14 documented as of this encounter
--- OUTSIDE RECORDS SUMMARY | 2021-11-20 12:45 | XMS_ITS | Encounter Summary ---
:1945 Author Organization [facility] Address [address] [place] [address]. [place] [address] Care Team Providers Name Role Phone Chele Mena MD Primary Care Provider Birgit Whipple MD Unavailable Dragan Ritter MD Unavailable Abhishek Salguero MD Unavailable Reason for Visit Reason Comments RECHECK 1 year check up and medicati on questions Encounter Details Date Type Department Care Team Description 03/29/2020 Virtual Visit [facility] Sarabjit, Essential tremor; [address] Genao MD Localization-related epilepsy (H) [place], [address] [place] [address] [id number] Social History Tobacco Use Types Packs/Day Years Used Date Never Smoker Smokeless Tobacco: Never Used Alcohol Use Standard Drinks/Week Comments No 0 (1 standard drink = 0.6 oz pure alcoho l) Sex Assigned at Date Recorded Female 04/04/2021 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 documented as of this encounter Progress Notes Birgit Whipple MD - 03/29/2020 12:00 PM CST Kisha is a 74 year old who is being evaluated via a billable video visit. How would you like to obtain your AVS? Mail a copy If the video visit is dropped, the invitation should be resent by: Send to e- mail at: [email or web address] Will anyone else be joining your video visit? Video Start Time: 12:12 Video-Visit Details Type of service: Video Visit Video End Time:12:36 Originating Location (pt. Location): Home Distant Location (provider location): [facility] Platform used for Video Visit: [facility] [facility] Progress Note Patient: Kisha Gandara : 1945 Age: [age] year old Today's virtual Visit: 03/29/2020 Epilepsy Data: ?? Patient History Primary Epileptologist/Provider: (P) Birgit Whipple M.D. Epilepsy Syndrome: (P) Localization-related epilepsy unspecified Age of Onset: (P) 54 Etiology : (P) Unknown Other Relevant Dx/ Issues: (P) [facility] non[facility]ulsive status epilepticus. History of Depakote-induced hyperammonemia. ?? Tests/Surgery History Last EEG: (P) 01/30/10 Last MRI: (P) 01/10/10 ?? Seizure Record Current Visit Date: (P) 04/06/2019 Previous Visit Date: (P) 02/06/ Months since last visit: (P) ~14 months Seizure Type 1: (P) Complex partial seizures unspecified Seizure Type 2: (P) Tonic-clonic seizures History of Present Illness: Ms. Kisha Gandara is participating in this virtual visit for follow-up on her seizures. She is accompanied by her . She had no seizures since last visit 03/2019. She is taking Depakote 750 mg twice a day. She is also taking Lyrica 100-50-50, mainly for neuropathy. Her tremors are better, once in a while one of her hands shake for a few seconds, usually left hand.She is taking primidone 250 mg at bedtime. She has neuropathy in her feet and radiculopathy in her legs. She had an EMG/NCV by Dr. Abhishek Salguero 05/05 19, which showed (1) a mild to moderate, axonal, length-dependant sensorimotor polyneuropathyand (2) a superimposed chronic left- sided lumbosacral radiculopathy affecting the L5 and S1 nerve roots. Limited needle EMG of right-sided muscles was suggestive of (3) a similar radicular process affecting the right as well (i.e., bilateral chronic L5 and S1 radiculopathies). Currently has some tingling, doesn't have pins and needles in her toes anymore, since she has been taking Lyrica. She can't stand up on her legs for a long time. Current Outpatient Medications Medication Sig Dispense Refill ??? ACETAMINOPHEN PO ??? acetaminophen-codeine (TYLENOL #3) 300-30 MG per tablet Take 1-2 tablets by mouth daily as needed for moderate pain ??? amoxicillin (AMOXIL) 500 MG capsule Take 2,000 mg by mouth daily TAKE BEFORE DENTIST APPOINTMENTS ??? Ascorbic Acid (VITAMIN C PO) ??? aspirin 81 MG tablet Take by mouth daily ??? blood glucose monitoring (SOFTCLIX) lancets 1 each by In Vitro route Use to test blood sugar four times daily or as directed. ??? WCDENYX-MINVZFPPA-FHIKXIZ D PO Take by mouth daily ??? Cholecalciferol (VITAMIN D3) 1000 units CAPS 1,000 capsules ??? clotrimazole (LOTRIMIN) 1 % cream Apply topically 2 times daily as needed ??? divalproex sodium extended-release (DEPAKOTE ER) 250 MG 24 hr tablet Take 3 tablets (750 mg) by mouth 2 times daily - Oral(Due for office visit before next refill,Please call [phone] to schedule) Thank you 540 tablet 0 ??? Glucose Blood (ACCU-CHEK BRAULIO PLUS ) [...] mouth 2 times daily ??? nystatin (NYSTOP) [id number] UNIT/GM POWD APPLY 1 APPLICATION TOPICALLY TWICE DAILY. ??? Loyal-3 Fatty Acids (FISH OIL PO) ??? oxybutynin (DITROPAN-XL) 5 MG 24 hr tablet Take 5 mg by mouth ??? pregabalin (LYRICA) 50 MG capsule TAKE 2 CAPSULES BY MOUTH IN THE MORNING, 1 CAP AT NOON, AND 1 CAP IN THE EVENING. 124 capsule 5 ??? primidone (MYSOLINE) 250 MG tablet Take 1 tablet (250 mg) by mouth At Bedtime TAKE 1 TABLET BY MOUTH EVERYDAY AT BEDTIME 90 tablet 3 ??? simvastatin (ZOCOR) 20 MG tablet Take by mouth daily Perceived AED Side Effects: No Medication Notes: AED Medication Compliance: compliant most of the time Review of Systems: ROS was done and was positive for urinary urgency and frequency and occasional incontinence, memory problems, occasional imbalance and tiredness during the day. Exam: Wt Readings from Last 5 Encounters: 04/06/19 269 lb 12.8 oz (122.4 kg) 02/06/18 271 lb 6.4 oz (123.1 kg) 06/10/17 268 lb 6.4 oz (121.7 kg) 08/30/16 274 lb 3.2 oz (124.4 kg) 02/21/16 262 lb 9.6 oz (119.1 kg) Alert, awake, NAD, no aphasia or dysarthria, EOMI, face symmetric, moves upper extremities against gravity, bilateral left greater than right hand tremors in outstretched arms, slight tremor in left ozagwj-td-ecnt. 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 She is taking Depakote 750 mg bid. She is also taking Lyrica 100-50-50 mainly for neuropathy and primidone 250 mg daily for tremors. ?? 2. Tremors: most likely essential tremors but differential includes Parkinson's disease, tremor worsened by Depakote and better on primidone supporting likely essential tremor. Will continue to monitorfor now. ?? 3. Diabetic neuropathy: EMG/NCS showed mild to moderate sensorimotor polyneuropathy, which is likelydue to her diabetes. I advised the patient to talk to her primary care physician for better control on her diabetes. She also has bilateral L5-S1 radiculopathy. We will monitor the symptoms. Since starting Lyrica she does not have pain or qmkq-koy-agkdvli in her feet. She has some tingling in her toes. ?? - Continue Depakote 750 mg bid - Continue Primidone 250 mg daily - Continue Lyrical 100-50-50 mg per day - Obtain Depakote level, AST ALT and CBC. - Follow-up in 1 year As described above, I met with the patient for 24 minutes and during this time counseling was greater than 50% of the visit time. Birgit Whipple MD EO MAP PLOTTER OPERATOR documented in this encounter Plan of Treatment Upcoming Encounters Date Type Specialty Care Team Description 03/20/2022 Virtual Visit Neurology Birgit Whipple MD [address] [place] [id number] (Wo rk) documented as of this encounter Results ALT (04/06/2020 2:41 PM STEREO MAP PLOTTER OPERATOR) athologist Signature ALT 40 0 - 50 U/L 04/07/2020 [facility] 11:34 AM STEREO MAP PLOTTER OPERATOR [facility] Specimen Anatomical Collection Method Collection Time Receive d Time (Source) Location / / Volume Laterality Blood specimen 04/06/2020 2:41 PM 021 2:42 (specimen) STEREO MAP PLOTTER OPERATOR PM STEREO MAP PLOTTER OPERATOR Birgit Whipple MD LAB - BLOOD ORDERABLES Performing Organization Address City/State/ZIP Code Phon e Number [facility] [address] [place] [address] AST (SGOT) (04/06/2020 2:41 PM STEREO MAP PLOTTER OPERATOR) athologist Signature AST 26 0 - 45 U/L 04/07/2020 [facility] 11:[address] [facility] Specimen Anatomical Collection Method Collection Time Receive d Time (Source) Location / / Volume Laterality Blood specimen 04/06/2020 2:41 PM 021 2:42 (specimen) STEREO MAP PLOTTER OPERATOR PM STEREO MAP PLOTTER OPERATOR Bigrit Whipple MD LAB - BLOOD ORDERABLES Performing Organization Address City/State/[facility] Code Phon e Number [facility] [address] [place] [address] CBC with platelets (04/06/2020 2:41 PM STEREO MAP PLOTTER OPERATOR) athologist Signature WBC 8.3 4.0 - 11.0 04/06/2020 [place] 10e9/L 3:03 PM [facility] RBC Count 4.34 3.8 - 5.2 04/06/2020 [facility] 10e12/L 3:03 PM [facility] Hemoglobin 13.4 11.7 - 04/06/2020 [facility] 15.7 g/dL 3:03 PM [facility] Hematocrit 41.3 35.0 - 04/06/2020 [facility] 47.0 % 3:03 PM [facility] MCV 95 78 - 100 04/06/2020 [place] fl 3:03 PM [facility] MCH 30.9 26.5 - 04/06/2020 [facility] 33.0 pg 3:03 PM [facility] MCHC 32.4 31.5 - 04/06/2020 [facility] 36.5 g/dL 3:03 PM [facility] RDW 14.0 10.0 - 04/06/2020 [facility] 15.0 % 3:03 PM [facility] Platelet Count 234 150 - 450 04/06/2020 [facility] 10e9/L 3:03 PM [facility] Specimen Anatomical Collection Method Collection Time Receive d Time (Source) Location / / Volume Laterality Blood specimen 04/06/2020 2:41 PM 021 2:42 (specimen) STEREO MAP PLOTTER OPERATOR PM STEREO MAP PLOTTER OPERATOR Birgit Whipple MD LAB - BLOOD ORDERABLES Performing Organization Address City/[facility]/ZIP Code Phon e Number [facility] [address] [place] [address] Valproic Acid Free (04/06/2020 2:41 PM STEREO MAP PLOTTER OPERATOR) athologist Signature Valproic Acid 6.0 6.0 - 20.0 04/07/2020 [facility] Free ug/mL 12:07 PM STEREO MAP PLOTTER OPERATOR [facility] Comment: Analysis performed by [employer] [place] [address] Specimen Anatomical Collection Method Collection Time Receive d Time (Source) Location / / Volume Laterality Blood specimen 04/06/2020 2:41 PM 021 2:42 (specimen) STEREO MAP PLOTTER OPERATOR PM STEREO MAP PLOTTER OPERATOR Birgit Whipple MD LAB - BLOOD ORDERABLES Performing Organization Address City/[facility]/ZIP Code Phon e Number [facility] [address] [place] [address] Valproic Acid level (04/06/2020 2:41 PM STEREO MAP PLOTTER OPERATOR) athologist Signature Valproic Acid 63 50 - 100 04/07/2020 [facility] mg/L 3:01 PM [facility] Specimen Anatomical Collection Method Collection Time Receive d Time (Source) Location / / Volume Laterality Blood specimen 04/06/2020 2:41 PM 021 2:42 (specimen) STEREO MAP PLOTTER OPERATOR PM STEREO MAP PLOTTER OPERATOR Birgit Whipple MD LAB - BLOOD ORDERABLES Performing Organization Address City/[facility]/ZIP Code Phon e Number [facility] [address] [place] [address] [facility] documented in this encounter Visit Diagnoses Diagnosis Essential tremor Essential and other specified forms of t remor Localization-related epilepsy (H) Localization-related (focal) (partial) e pilepsy and epileptic syndromes with simple partial seizures, without mention of int ractable epilepsy documented in this encounter Care Teams Planning Official Relationship Specialty Start Date End Date Chele Mena PCP - General Internal Medicine 11/28/[address] [facility] [address] [place] [address] Birgit Whipple MD Neurology 06/16/14 Dragan Ritter MD Urology 06/10/17 [facility] [address] [place] [address] [id number] Abhishek Salguero MD Assigned Neuroscience 12/18/19 04/02/20 [address] [place] [address] documented as of this encounter
--- OUTSIDE RECORDS SUMMARY | 2021-11-20 12:45 | XMS_ITS | Encounter Summary ---
:1945 Author Organization [facility] Address [address] [place] [address]. [place] [address] Care Team Providers Name Role Phone Chele Mena MD Primary Care Provider Birgit Whipple MD Unavailable Dragan Ritter MD Unavailable Encounter Details Date Type Department Care Team Description 05/05/2019 Office Visit [facility] Abhishek Salguero, Diabetic polyneuropathy asso ciated with type 2 diabetes mellitus (H) (Primary Dx); [address] Lumbar radiculopathy [place] [address] [facility] [address] [place] [phone] Social History Tobacco Use Types Packs/Day Years Used Date Never Smoker Smokeless Tobacco: Never Used Alcohol Use Standard Drinks/Week Comments No 0 (1 standard drink = 0.6 oz pure alcoho l) Sex Assigned at Date Recorded Female 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 [facility] Electrodiagnostic Laboratory Nerve Conduction & EMG Report Patient: Su Gandara Gender: Female Date of : 1945 Age: 73 Years 8 Months History & Examination: 73 year old woman with a history of diabetes and chemotherapy exposure (breast cancer) reports numbness in feet and pain in back. Evaluate for polyneuropathy vs radiculopathy. Techniques: Motor and sensory conduction studies were done with surface recording electrodes. EMG was done with a concentric needle electrode. Results: Nerve conduction studies: 1. Bilateral sural sensory responses are absent. 2. Left median-D2 and radial sensory responses are normal. 3. Bilateral peroneal-EDB motor responses show normal DL, moderately reduced amplitudes and normal CV. 4. Left tibial-AH motor response shows normal DL and moderately reduced amplitude. 5. Left median-APB motor response is normal. Needle EM. Fibrillation potentials and positive sharp waves were seen in the left lumbosacral paraspinal muscles. 2. Large amplitude and/or long duration motor unit potentials (MUP) were seen in the bilateral TA, bilateral gastrocnemius, and left glut med muscles. 3. Recruitment patterns are normal. Interpretation: This is an abnormal study. There is electrophysiologic evidence of (1) a mild to moderate, axonal, length-dependant sensorimotor polyneuropathy and (2) a superimposed chronic left-sided lumbosacral radiculopathy affecting the L5 and S1 nerve roots. Limited needle EMG of right-sided muscles was suggestive of (3) a similar radicular process affecting the right as well (i.e., bilateral chronic L5 and [id number]). Clinical correlation is recommended. Abhishek Salguero MD Department of Neurology Sensory NCS Nerve / Sites Rec. 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 PP Amp Dist Miguel Ref. Temp ms ms ??V ??V ??V cm m/s m/s ??C L MEDIAN - Dig II Anti Wrist Dig II 2.71 3.59 20.2 10.0 30.5 14 51.7 48.0 33 L RADIAL - Snuff Forearm Snuff 1.61 2.08 19.1 15.0 22.1 10 61.9 48.0 33.1 R SURAL - Lat Mall 60 Calf Ankle NR NR NR 5.0 NR 14 NR 38.0 31.3 L SURAL - Lat Mall 60 Calf Ankle NR NR NR 5.0 NR 14 NR 38.0 31.5 Motor NCS Nerve / Sites Rec. Site Lat Ref. Amp Ref. Rel Amp Dist Miguel Ref. Dur. Area Temp. ms ms mV mV % cm m/s m/s ms % ??C L MEDIAN - APB Wrist APB 3.96 4.40 5.1 5.0 100 8 4.84 100 33 Elbow APB 7.76 5.0 98.4 22 57.9 48.0 4.90 101 33.3 L DEEP PERONEAL - EDB 60 Ankle EDB 4.01 6.00 1.4 2.0 100 8 3.44 100 30.6 FibHead EDB 12.66 1.2 82.8 35 40.5 38.0 3.39 161 30.8 Pop Fos EDB 14.06 1.0 73 6 42.7 38.0 4.64 56.8 31 R DEEP PERONEAL - EDB 60 Ankle EDB 4.11 6.00 1.1 2.0 100 8 3.80 100 31 FibHead EDB 11.77 0.8 72.8 34 44.4 38.0 3.23 78.5 31.1 Pop Fos EDB 13.07 0.7 59.1 6 46.1 38.0 3.65 64.5 31.1 L TIBIAL - AH Ankle AH 4.84 6.00 1.9 4.0 100 8 3.91 100 31 EMG Summary Table Spontaneous MUAP Recruitment IA Fib/PSW Fasc H.F. Amp Dur. PPP Pattern L. VAST LATERALIS N None None None N N N Normal L. TIB ANTERIOR N None None None 1+ 1+ 1+ Normal L. GASTROCN (MED) N None None None N 1+ 1+ Normal L. GLUTEUS MED N None None None N 2+ 2+ Normal L. LUMB PSP (L) Increased 2+ None None R. VAST LATERALIS N None None None N N N Normal R. TIB ANTERIOR N None None None 1+ 1+ N Normal R. GASTROCN (MED) N None None None 1+ 1+ N Normal documented in this encounter Plan of Treatment Upcoming Encounters Date Type Specialty Care Team Description 03/20/2022 Virtual Visit Neurology Birgit Whipple MD [address] [place] [phone] (Wo rk) documented as of this encounter Procedures Procedure Name Priority Date/Time Associated Diagnosis Comme nts HC NCS MOTOR W OR Routine 05/05/2019 10:55 Diabetic polyneurop athy W/O F-WAVE, 7 OR 8 AM CDT associated with type 2 diabetes mellitu s (H) Lumbar radiculopathy HC NEEDLE EMG EA Routine 05/05/2019 10:55 Diabetic polyneuropa thy EXTREMITY AM CDT associated with type 2 W/PARASPINAL AREA diabetes melli tus (H) LIMITED Lumbar radiculopathy HC NEEDLE EMG EA Routine 05/04/2019 Diabetic polyneuropathy Results for this EXTREMTY associated with type 2 proce dure are in W/PARASPINAL AREA diabetes melli tus (H) the results COMPLETE Lumbar radiculopathy section . documented in this encounter Results (ABNORMAL) HC NEEDLE EMG EA EXTREMTY W/PARASPINAL AREA COMPLETE (05/04/2019) Impressions Alanna Arvizu - 05/04/2019 [facility] Electrodiagnostic Laboratory ?? Nerve Conduction & EMG Report ? Patient: ? Su Gandara Gender: ?Female Date of : 1945 Age: ? 73 Years 8 Months ? History & Examination: 73 year old woman with a history of diab etes and chemotherapy exposure (breast cancer) reports numbness in feet and pain in back. Evaluate for polyneuropathy vs radiculopathy. ?? Techniques: Motor and sensory conduction studies were done with surface recording electrodes. EMG was done with a concentric needle electrode. Results: Nerve conduction studies: 1. Bilateral sural sensory responses are absent. 2. Left median-D2 and radial sensory res ponses are normal. 3. Bilateral peroneal-EDB motor response s show normal DL, moderately reduced amplitudes and normal CV. 4. Left tibial-AH motor response shows n ormal DL and moderately reduced amplitude. 5. Left median-APB motor response is nor mal. ?? Needle EM. Fibrillation potentials and positive sharp waves were seen in the left lumbosacral paraspinal muscles. 2. Large amplitude and/or long duration motor unit potentials (MUP) were seen in the bilateral TA, bilateral gastrocnemius, and left glut med muscles. 3. Recruitment patterns are normal. ?? Interpretation: This is an abnormal study. There is elec trophysiologic evidence of (1) a mild to moderate, axonal, length-dependant sensorimotor polyneuropathy and (2) a superimposed chronic left-sided lumbosacral radi culopathy affecting the L5 and S1 nerve roots. Limited needle EMG of right-sided muscles was suggestive of (3) a similar radicular process affecting the right as well (i.e., bilateral chronic L5 and S1 radiculopathies). Clinical correlation i s recommended. ? Abhishek Salguero MD Department of Neurology Abhishek Salguero MD PROCEDURES documented in this encounter Visit Diagnoses Diagnosis Diabetic polyneuropathy associated with type 2 diabetes mellitus (H) - Primary Lumbar radiculopathy Thoracic or lumbosacral neuritis or radi culitis, unspecified documented in this encounter Care Teams Contracting Engineer Relationship Specialty Start Date End Date Chele Mena MD PCP - General Internal Medicine 11/28/12 [facility] [address] [place] [address] Birgit Whipple MD MD Neurology 06/16/14 Dragan Ritter MD MD Urology 06/10/17 [facility] [address] [place] [phone] documented as of this encounter
--- OUTSIDE RECORDS SUMMARY | 2021-11-20 12:45 | XMS_ITS | Encounter Summary ---
:1945 Author Organization [facility] Address [address] [place] [address]. 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 documented as of this encounter Plan of Treatment Upcoming Encounters Date Type Specialty Care Team Description 03/20/2022 Virtual Visit Neurology Birgit Whipple MD [address] [place], [place] [address] (Wo rk) documented as of this encounter Visit Diagnoses Diagnosis 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 (H) documented in this encounter Care Teams Size Painter Relationship Specialty Start Date End Date Chele Mena MD PCP - General Internal Medicine 11/28/12 [facility] [address] [place] [address] Birgit Whipple MD MD Neurology 06/16/14 documented as of this encounter
--- OUTSIDE RECORDS SUMMARY | 2021-11-20 12:45 | XMS_ITS | Encounter Summary ---
:1945 Author Organization [facility] Address [address] [place] [address]. 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 as of this encounter Plan of Treatment Upcoming Encounters Date Type Specialty Care Team Description 03/20/2022 Virtual Visit Neurology Birgit Whipple MD [address] [place] [address] (Wo rk) documented as of this encounter Visit Diagnoses Diagnosis 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 (H) documented in this encounter Care Teams Foreign Student Adviser Teacher Relationship Specialty Start Date End Date Chele Mena MD PCP - General Internal Medicine 11/28/12 [facility] [address] [place] [address] Birgit Whipple MD MD Neurology 06/16/14 documented as of this encounter
--- OUTSIDE RECORDS SUMMARY | 2021-11-20 12:45 | XMS_ITS | Encounter Summary ---
:1945 Author Organization [facility] Address [address] [place] [address]. [place] [address] Care Team Providers Name Role Phone Chele Mena MD Primary Care Provider Birgit Whipple MD Unavailable Dragan Ritter MD Unavailable Birgit Whipple MD Unavailable Reason for Visit Reason Onset Date Comments Medication Refill PREGABALIN 50 MG CAP JYOTI Refill Request 09/26/2020 Encounter Details Date Type Department Care Team Description 09/21/2020 Refill [facility] Sarabjit, Medication Refill [address] (PREGABALIN 50 MG [address] [place]); [place] [address] [phone] (Wo rk) Social History Tobacco Use Types Packs/Day Years Used Date Never Smoker Smokeless Tobacco: Never Used Alcohol Use Standard Drinks/Week Comments No 0 (1 standard drink = 0.6 oz pure alcoho l) Sex Assigned at Date Recorded Female 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 Telephone Encounter - Mitch Tobar RN - 09/23/2020 5:24 PM CDT Routed to for review/approval Telephone Encounter - Geno Harvey - 09/23/2020 2:49 PM CDT Pt called again, still waiting for rx. Has only one dose for today. Please fill dwayne and send to pharmacy. Telephone Encounter - Nancy Devine MA - 09/23/2020 11:02 AM CDT Patient is out of medication , please fill DWAYNE. Telephone Encounter - Shayna Bullard RN - 09/21/2020 1:07 PM CDT PREGABALIN 50 MG CAPSULE Last Written Prescription Date: 03/21/2020 Last Fill Quantity: 124, # refills: 5 Last Office Visit : 03/29/2020 Future Office visit: None Routing refill request to provider for review/approval because: Drug not on the [facility], P or [facility] refill protocol or controlled substance Shayna Bullard RN Central Triage Red Flags/Med Refills documented in this encounter Plan of Treatment Upcoming Encounters Date Type Specialty Care Team Description 03/20/2022 Virtual Visit Neurology Rui-Birgit Gomez MD [address] [place] [phone] (Wo rk) documented as of this encounter Visit Diagnoses Diagnosis 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 (H) documented in this encounter Care Teams Care Administrative Tech Relationship Specialty Start Date End Date Chele Mena PCP - General Internal Medicine 11/28/12 MD Hakan [facility] [address] [place] [address] Birgit Whipple MD Neurology 06/16/14 Dragan Ritter MD Urology 06/10/17 [facility] [address] [id number] Birgit Whipple, Assigned Neuroscience 04/03/20 MD Provider [address] [place] [address] documented as of this encounter
--- OUTSIDE RECORDS SUMMARY | 2021-11-20 12:45 | XMS_ITS | Encounter Summary ---
:1945 Author Organization [place] Address [address] [place] [address]. [place] [address] Care Team Providers Name Role Phone Chele Mena MD Primary Care Provider [phone] Birgit Whipple MD Unavailable Dragan Ritter MD Unavailable Abhishek Salguero MD Unavailable Birgit Whipple MD Unavailable Encounter Details Date Type Department Care Team Description 04/16/2018 Records - [facility] MD [facility] [address] PHYSICIANS [place] [address] [place] [address] [place] [address] [place], [place] [id number] Social History Tobacco Use Types Packs/Day Years Used Date Never Smoker Smokeless Tobacco: Never Used Alcohol Use Standard Drinks/Week Comments No 0 (1 standard drink = 0.6 oz pure alcoho l) Sex Assigned at Date Recorded Female 04/04/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 documented as of this encounter Plan of Treatment Upcoming Encounters Date Type Specialty Care Team Description 03/20/2022 Virtual Visit Neurology Birgit Whipple MD [address] [place] [address] (Wo rk) documented as of this encounter Procedures Procedure Name Priority Date/Time Associated Diagnosis Comme nts CBC WITH PLATELETS Routine 04/17/2018 5:47 AM Res ults for this SUPERVISOR MACHINE SETTER procedure are i n the results section. documented in this encounter Results (ABNORMAL) CBC with platelets (04/17/2018 5:47 AM SUPERVISOR MACHINE SETTER) [facility] gist Method Time Signature WBC 10.8 4.0 - 11.0 04/17/2018 HEALTH thou/uL 2:38 PM SUPERVISOR MACHINE SETTER [facility] RBC Count 3.56 (L) 3.80 - 04/17/2018 HEALTH 5.40 2:38 PM SUPERVISOR MACHINE SETTER [facility] Hemoglobin 10.5 (L) 12.0 - 04/17/2018 HEALTH 16.0 g/dL 2:38 PM SUPERVISOR MACHINE SETTER R[facility] Hematocrit 34.6 (L) 35.0 - 04/17/2018 HEALTH 47.0 % 2:38 PM SUPERVISOR MACHINE SETTER [facility] MCV 97 80 - 100 04/17/2018 [facility] fL 2:38 PM [facility] MCH 29.5 27.0 - 04/17/2018 HEALTH 34.0 pg 2:38 PM SUPERVISOR MACHINE SETTER [facility] MCHC 30.3 (L) 32.0 - 04/17/2018 HEALTH 36.0 g/dL 2:38 PM SUPERVISOR MACHINE SETTER [facility] RDW 15.2 (H) 11.0 - 04/17/2018 HEALTH 14.5 % 2:38 PM SUPERVISOR MACHINE SETTER [facility] Platelet Count 538 (H) 140 - 440 04/17/2018 [facility] thou/uL 2:38 PM SUPERVISOR MACHINE SETTER [facility] Mean Platelet 9.6 8.5 - 12.5 04/17/2018 [facility] Volume fL 2:38 PM SUPERVISOR MACHINE SETTER [facility] Specimen Anatomical Collection Method / Collection Time Recei es Time (Source) Location / Volume Laterality Blood specimen STRUCTURE OF RIGHT Venipuncture / 04/17/2018 5:47 2:15 (specimen) UPPER LIMB / Unknown AM SUPERVISOR MACHINE SETTER PM SUPERVISOR MACHINE SETTER Unknown [facility] MD LAB - BLOOD ORDERABLES Performing Organization Address City/State/ZIP Code Phon [place] [address] [address] [facility] documented in this encounter Visit Diagnoses Not on filedocumented in this encounter Care Teams Museum Service Scheduler Relationship Specialty Start Date End Date Chele Mena PCP - General Internal Medicine 11/28/12 MD Hakan [facility] [address] [place] [address] Birgit Whipple MD Neurology 06/16/14 Dragan Ritter MD Urology 06/10/17 [facility] [address] [address] Abhishek Salguero MD Assigned Neuroscience 12/18/19 04/02/[address] [place] [phone] Birgit Whipple, Janel Neuroscience 04/03/20 [place] Provider [address] [place] [address] documented as of this encounter
--- OUTSIDE RECORDS SUMMARY | 2021-11-20 12:45 | XMS_ITS | Encounter Summary ---
:1945 Author Organization [facility] Address [address] [place] [address]. [place] [address] Care Team Providers Name Role Phone Chele Mena MD Primary Care Provider Birgit Whipple MD Unavailable Dragan Ritter MD Unavailable Abhishek Salguero MD Unavailable Birgit Whipple MD Unavailable Encounter Details Date Type Department Care Team Description 04/17/2018 Records - [facility] MD [facility] [address] PHYSICIANS [place] [address] [place] [address] [place] [address] [place], [place] [id number] Social History Tobacco Use Types Packs/Day Years Used Date Never Smoker Smokeless Tobacco: Never Used Alcohol Use Standard Drinks/Week Comments No 0 (1 standard drink = 0.6 oz pure alcoho l) Sex Assigned at Date Recorded Female 04/04/2021 11:57 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 documented as of this encounter Plan of Treatment Upcoming Encounters Date Type Specialty Care Team Description 03/20/2022 Virtual Visit Neurology Birgit Whipple MD [address] [place] [address] (Wo rk) documented as of this encounter Procedures Procedure Name Priority Date/Time Associated Diagnosis Comme nts HEMOGLOBIN A1C Routine 04/17/2018 5:47 AM Results for this PLASTIC DESIGN APPLIER procedure are i n the results section . documented in this encounter Results (ABNORMAL) Hemoglobin A1c (04/17/2018 5:47 AM PLASTIC DESIGN APPLIER) Analysis Performed At Patho logist Time Signature Hemoglobin A1C 6.3 (H) 4.2 - 6.1 04/18/2018 HEALTH % 1:23 PM PLASTIC DESIGN APPLIER [facility] Specimen Anatomical Collection Method / Collection Time Recei es Time (Source) Location / Volume Laterality Blood specimen STRUCTURE OF RIGHT Venipuncture / 04/17/2018 5:47 1:19 (specimen) UPPER LIMB / Unknown AM PLASTIC DESIGN APPLIER PM PLASTIC DESIGN APPLIER Unknown [facility] MD LAB - BLOOD ORDERABLES Performing Organization Address [facility]/State/ZIP Code Phon [place] [address] [address] [facility] documented in this encounter Visit Diagnoses Not on filedocumented in this encounter Care Teams Train Braker Relationship Specialty Start Date End Date Chele Mena PCP - General Internal Medicine 11/28/12 MD Hakan [facility] [address] [place] [address] Birgit Whipple MD Neurology 06/16/14 Dragan Ritter MD Urology 06/10/17 [facility] [address] [facility] [place] [address] [place] [address] Abhishek Salguero MD Assigned Neuroscience 12/18/19 04/02/[address] [place] [address] Provider [place], [place] [address] Birgit Whipple, Assigned Neuroscience 04/03/20 [place] Provider [address] [place] [phone] documented as of this encounter
--- OUTSIDE RECORDS SUMMARY | 2021-11-20 12:45 | XMS_ITS | Encounter Summary ---
:1945 Author Organization [facility] Address [address] [place] [address]. 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 documented as of this encounter Plan of Treatment Upcoming Encounters Date Type Specialty Care Team Description 03/20/2022 Virtual Visit Neurology Birgit Whipple MD [address] [place], [place] [phone] (Wo rk) documented as of this encounter Visit Diagnoses Diagnosis 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
--- OUTSIDE RECORDS SUMMARY | 2021-11-20 12:45 | XMS_ITS | Encounter Summary ---
:1945 Author Organization [facility] Address [address] [place] [address]. [place] [address] Care Team Providers Name Role Phone Chele Mena MD Primary Care Provider [phone] Birgit Whipple MD Unavailable Dragan Ritter MD Unavailable Birgit Whipple MD Unavailable Reason for Visit Reason Comments Medication Refill pregabalin (LYRICA) 50 MG ca psule Encounter Details Date Type Department Care Team Description 09/30/2020 Refill [facility] Sarabjit Medicat ion Refill Neurology Clinic MD Birgit (pregabalin (LYRICA) [address] MG capsule) [address] [place] [address] [place] [address] (Wo rk) [address] [phone] Social History Tobacco Use Types Packs/Day Years Used Date Never Smoker Smokeless Tobacco: Never Used Alcohol Use Standard Drinks/Week Comments No 0 (1 standard drink = 0.6 oz pure alcoho l) Sex Assigned at Date Recorded Female 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 Would like to fill today. Telephone Encounter - Antoinette Davis RN - 10/01/2020 8:05 AM CDT pregabalin (LYRICA) 50 MG capsule Last Written Prescription Date: 09/25/20 Last Fill Quantity: 124, # refills: 1 Last Office Visit : 03/29/20 Future Office visit: None Routing refill request to provider for review/approval because: sent 09/25/20. Transmission to pharmacy failed (09/25/2020 ??7:46 PM CDT) re send please thanks. 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
--- OUTSIDE RECORDS SUMMARY | 2021-11-20 12:45 | XMS_ITS | Encounter Summary ---
:1945 Author Organization [facility] Address [address] [place] [address]. [place] [address] Care Team Providers Name Role Phone Chele Mena MD Primary Care Provider Birgit Whipple MD Unavailable Dragan Ritter MD Unavailable Reason for Referral (Routine) - Closed Specialty Diagnoses / Procedures Referred By Contact Refer red To Contact Diagnoses Focal epilepsy (H) Birgit Whipple MD Procedures Valproic Acid level [address] [place], [place] [address] Referral ID Status Reason Start Date Expiration Date Visits Requ ested Visits Authorized [id number] Closed 04/06/2019 04/05/2020 1 1 INE BUNCH MAKER (Routine) - Closed Specialty Diagnoses / Procedures Referred By Contact Refer red To Contact Diagnoses Focal epilepsy (H) Birgit Whipple MD Procedures Valproic Acid Free [address] [place] [address] 5 Referral ID Status Reason Start Date Expiration Date Visits Requ ested Visits Authorized [id number] Closed 04/06/2019 04/05/2020 1 1 INE BUNCH MAKER Reason for Visit Reason Comments Follow Up Encounter Details Date Type Department Care Team Description 04/06/2019 Office Visit [facility] Epilepsy Care Sarabjit, Focal epilepsy (H) [address] Angela Genao MD (Primary Dx) [address], [address] [place] [address] [phone] Social History Tobacco Use Types Packs/Day Years Used Date Never Smoker Smokeless Tobacco: Never Used Alcohol Use Standard Drinks/Week Comments No 0 (1 standard drink = 0.6 oz pure alcoho l) Sex Assigned at Date Recorded Female 04/04/2021 11:57 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 documented as of this encounter Last Filed Vital Signs Vital Sign Reading Time Taken Comments Blood Pressure 119/55 04/06/2019 10:05 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 Pulse 67 04/06/2019 10:05 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 Temperature - - Respiratory Rate - - Oxygen Saturation - - Inhaled Oxygen Concentration - - Weight 122.4 kg (269 lb 12.8 oz) 04/06/2019 10:05 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 Height - - Body Mass Index 44.9 02/06/2018 9:19 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 documented in this encounter Progress Notes Birgit Whipple MD - 04/06/2019 10:00 AM CST [facility] Epilepsy Care Progress Note Patient: Kisha Gandara : 1945 Age: [age] year old Today's Office Visit: 04/06/2019 Epilepsy Data: Patient History Primary Epileptologist/Provider: (P) Birgit Whipple M.D. Epilepsy Syndrome: (P) Localization-related epilepsy unspecified Age of Onset: (P) 54 Etiology : (P) Unknown Other Relevant Dx/ Issues: (P) Inpatient evaluations 01/04 and 02/03. 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 History of Depakote-induced hyperammonemia. Tests/Surgery History Last EEG: (P) 01/30/10 Last MRI: (P) 01/10/10 Seizure Record Current Visit Date: (P) 04/06/2019 Previous Visit Date: (P) 02/06/18 Months since last visit: (P) ~14 months Seizure Type 1: (P) Complex partial seizures unspecified Seizure Type 2: (P) Tonic-clonic seizures History of Present Illness: Ms. Gandara is accompanied by her for follow-up of seizures. No seizures since last visit. She takes depakote 750 mg BID and uses pillbox. She reports that she doesn't miss her medication. Tremor stable, improved after initiating primidone. Noted to have notable head tremor on exam today. No family history of tremor. Neuropathy continues into have an uncomfortable feeling in her legs, not complaining of pins and needles. Feet feel as if they will go through the floor when asked to describe sensation. Using walkerregularly to prevent falls and no falls since last visit, can go 6-10 feet without walker. 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 Current Outpatient Medications Medication Sig Dispense Refill [...] four times daily or as directed. ??? VCVKOEO-[id number]-KCIAFYD D PO Take by mouth daily ??? Cholecalciferol (VITAMIN D3) 1000 units CAPS 1,000 capsules ??? clotrimazole (LOTRIMIN) 1 % cream Apply topically 2 times daily as needed ??? divalproex sodium extended-release (DEPAKOTE ER) 250 MG 24 hr tablet Take 3 tablets (750 mg) by mouth 2 times daily 540 tablet 3 ??? Glucose Blood (ACCU-CHEK [...] mouth 2 times daily ??? nystatin (NYSTOP) 066082 UNIT/GM POWD APPLY 1 APPLICATION TOPICALLY TWICE DAILY. ??? [place]-3 Fatty Acids (FISH OIL PO) ??? oxybutynin (DITROPAN-XL) 5 MG 24 hr tablet Take 5 mg by mouth ??? pregabalin (LYRICA) 50 MG capsule TAKE 2 CAPSULES BY MOUTH IN THE MORNING, 1 CAP AT NOON, AND 1 CAP IN THE EVENING. 120 capsule 5 ??? primidone (MYSOLINE) 250 MG tablet Take 1 tablet (250 mg) by mouth At Bedtime TAKE 1 TABLET BY MOUTH EVERYDAY AT BEDTIME 90 tablet 3 ??? simvastatin (ZOCOR) 20 MG tablet Take by mouth daily Medication Notes: AED Medication Compliance: Never misses medications. Review of Systems: Lethargy / Tiredness: Yes Nausea / Vomiting: No Double Vision: No Sleepiness: Yes Depression: No Memory Problems: Yes Poor Balance: Yes Dizziness: No Appetite Changes: No Headaches: Occasional and responsive to caffeine Blurred Vision: No Sleep Changes: No Behavioral Changes: No Skin: negative Urinary symptoms: Yes, chronic urgency and frequency and treated with medication. Respiratory: No shortness of breath and No cough Cardiovascular: negative Have you experienced a traumatic fall since your last visit: NO Woman Care: Patient is: Sexually Active: Occasionally Type of Control: none : no. Planning to become : No Exam: BP 119/55 (BP Location: Right arm, Patient Position: Sitting, Cuff Size: Adult Large) Pulse 67 Wt 269 lb 12.8 oz (122.4 kg) BMI 44.90 kg/m?? Wt Readings from Last 5 Encounters: 04/06/19 269 lb 12.8 oz (122.4 kg) 02/06/18 271 lb 6.4 oz (123.1 kg) 06/10/17 268 lb 6.4 oz (121.7 kg) 08/30/16 274 lb 3.2 oz (124.4 kg) 02/21/16 262 lb 9.6 oz (119.1 kg) General Appearance: Alert, awake, cooperative and pleasant, NAD Mental status: Aware of date, reason for visit, health care network (not [facility]). Bradyphrenia. Slowspeech. No aphasia. Cranial Nerves: Face symmetric, reduced facial expression, EOMI without nystagmus. Motor: Occasional right hand and arm tremor at rest, more prominent with action. Increased tone in RUE especially after activation with contralateral arm. No pronator drift, moves arms and legs symmetrically. No prominent bradykinesia in fingers. Sensation: Reduced to midthigh bilaterally. 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 She is taking Depakote 750 mg bid. She is also taking Lyrica 100-50-50 for neuropathy and primidone 250 mg daily for tremors. 2. Tremors: most likely essential tremors but differential includes Parkinson's disease, tremor worsened by Depakote and better on primidone supporting likely essential tremor. Will continue to monitorfor now. 3. Diabetic neuropathy: Denies pain, pins and needles on visit today, but an uncomfortable feeling. - Continue Depakote 750 mg bid - Continue Primidone 250 mg daily - Continue Lyrical 100-50-50 mg per day - Depakote level paper order provided - Follow-up in 1 year Haylee Rodriguez MD Neurology PGY 3 Patient was seen and examined with Dr. Fabian. I saw and evaluated the patient and discussed the plan of care with Dr. Rodriguez. I have reviewed her note and agree with the findings, impression and plan. Birgit Whipple MD INE BUNCH MAKER documented in this encounter Plan of Treatment Upcoming Encounters Date Type Specialty Care Team Description 03/20/2022 Virtual Visit Neurology Birgit Whipple MD [address] [place] [phone] (Wo rk) Scheduled Orders Name Type Priority Associated Diagnoses Order S chedule Valproic Acid Free Lab Routine Focal epilepsy (H) Ord ered: 04/06/2019 Valproic Acid level Lab Routine Focal epilepsy (H) Or dered: 04/06/2019 documented as of this encounter Visit Diagnoses Diagnosis Focal epilepsy (H) - Primary Localization-related (focal) (partial) e pilepsy and epileptic syndromes with simple partial seizures, without mention of int ractable epilepsy documented in this encounter Care Teams Head Of Science Relationship Specialty Start Date End Date Chele Mena MD PCP - General Internal Medicine 11/28/12 [facility] [address] [place] [address] Birgit Whipple MD MD Neurology 06/16/14 Dragan Ritter MD MD Urology 06/10/17 [facility] [address] [id number] [place] [address] documented as of this encounter
--- OUTSIDE RECORDS SUMMARY | 2021-11-20 12:45 | XMS_ITS | Encounter Summary ---
:1945 Author Organization [facility] Address [address] [place] [address]. [place] [address] Care Team Providers Name Role Phone Chele Mena MD Primary Care Provider Birgit Whipple MD Unavailable Dragan Ritter MD Unavailable Reason for Visit Reason Onset Date Comments Medication Refill pregabalin (LYRICA) 50 MG capsule Refill Request 03/18/2019 Refill Request 03/23/2019 Encounter Details Date Type Department Care Team Description 03/16/2019 Telephone [facility] Epilepsy Care Sarabjit, Medication Refill [address] (pregabalin (LYRICA) 50 [address] MG capsule); Refill [place], [place] Request; Refill Request [phone] Social History Tobacco Use Types Packs/Day Years Used Date Never Smoker Smokeless Tobacco: Never Used Alcohol Use Standard Drinks/Week Comments No 0 (1 standard drink = 0.6 oz pure alcoho l) Sex Assigned at Date Recorded Female 04/04/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 RPRISE RESOURCE ANALYST Telephone Encounter - SairacandiJanny - 03/23/2019 10:46 AM CST Received a f/up faxe re: this prescription request. RPRISE RESOURCE ANALYST Telephone Encounter - Surendra George LPN - 03/18/2019 3:58 PM CST called in stating she is almost out of this. Appointment scheduled for 04/06/19. It appears this never made it to the pharmacy. It states the transmission failed. Please resend DWAYNE RPRISE RESOURCE ANALYST Telephone Encounter - Nava dEwards RN - 03/16/2019 12:39 PM CST pregabalin (LYRICA) 50 MG capsule Last Written Prescription Date: 02-06-18 Last Fill Quantity: 360, # refills: 3 Last Office Visit : 02-06-18 Future Office visit: 04-17-2019 Routing refill request to provider for review/approval because: Controlled medication Not seen in over a year. Nava Edwards RN RPRISE RESOURCE ANALYST documented in this encounter Plan of Treatment Upcoming Encounters Date Type Specialty Care Team Description 03/20/2022 Virtual Visit Neurology Birgit Whipple MD [address] [place], [place] [id number] (Wo rk) documented as of this encounter Visit Diagnoses Diagnosis 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 (H) documented in this encounter Care Teams Engineer Booster And Exhauster Relationship Specialty Start Date End Date Chele Mena MD PCP - General Internal Medicine 11/28/[address] [address] Birgit Whipple MD MD Neurology 06/16/14 Dragan Ritter MD MD Urology 06/10/17 [facility] [address] [id number] [place] [id number] documented as of this encounter
--- OUTSIDE RECORDS SUMMARY | 2021-11-20 12:45 | XMS_ITS | Encounter Summary ---
:1945 Author Organization [facility] Address [address] [place] [address]. 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
--- OUTSIDE RECORDS SUMMARY | 2021-11-20 12:45 | XMS_ITS | Encounter Summary ---
:1945 Author Organization [facility] Address [address] [place] [address]. [place] [address] Care Team Providers Name Role Phone Chele Mena MD Primary Care Provider Birgit Whipple MD Unavailable Dragan Ritter MD Unavailable Abhishek Salguero MD Unavailable Reason for Visit Reason Comments Medication Refill DIVALPROEX SOD ER 250 MG TAB Encounter Details Date Type Department Care Team Description 03/03/2020 Refill [facility]ilepsy [facility] Sarabjit, Medication Refill [address] (DIVALPROEX SOD ER [address] 9[address] [facility] MG TAB) [place] [id number] (Wo rk) Social History Tobacco Use Types Packs/Day Years Used Date Never Smoker Smokeless Tobacco: Never Used Alcohol Use Standard Drinks/Week Comments No 0 (1 standard drink = 0.6 oz pure alcoho l) Sex Assigned at Date Recorded Female 04/04/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 BARBITURATES / VALPROIC ACID [Level: Moderate] Other Orders: primidone (MYSOLINE) 250 MG tablet Overridden by Birgit Whipple MD on Mar 09, 2019 11:59 AM Drug-Drug 1. BARBITURATES / VALPROIC ACID [Level: Moderate] Other Orders: primidone (MYSOLINE) 250 MG tablet Dose 1. DIVALPROEX SODIUM EXTENDED-RELEASE, 750 MG, ORAL, 2 TIMES DAILY DAILY DOSE 1,500 MG. OVERDOSE (MAX. 1,000 MG); FREQUENCY EXCEEDED BY 1 DOSES/DA ACT CENTER PROFESSIONAL documented in this encounter Plan of Treatment Upcoming Encounters Date Type Specialty Care Team Description 03/20/2022 Virtual Visit Neurology Birgit Whipple MD [address] [place] [address] (Wo rk) documented as of this encounter Visit Diagnoses Diagnosis Localization-related epilepsy (H) Localization-related (focal) (partial) e pilepsy and epileptic syndromes with simple partial seizures, without mention of int ractable epilepsy documented in this encounter Care Teams Gis Mapping Technician Relationship Specialty Start Date End Date Chele Mena PCP - General Internal Medicine 11/28/12 [facility] [address] [place] [address] Birgit Whipple MD Neurology 06/16/14 Dragan Ritter MD Urology 06/10/17 [facility] [id number] [place], [place] [address] Abhishek Salguero MD Assigned Neuroscience 12/18/19 04/02/[address] [facility] [place] [address] documented as of this encounter
--- OUTSIDE RECORDS SUMMARY | 2021-11-20 12:45 | XMS_ITS | Encounter Summary ---
:1945 Author Organization [facility] Address [address] [place] [address]. 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 documented as of this encounter Plan of Treatment Upcoming Encounters Date Type Specialty Care Team Description 03/20/2022 Virtual Visit Neurology Birgit Whipple MD [address] [place] [address] (Wo rk) documented as of this encounter Visit Diagnoses Not on filedocumented in this encounter Care Teams Opener Tender Relationship Specialty Start Date End Date Chele Mena MD PCP - General Internal Medicine 11/28/12 [facility] [address] [place] [address] Brigit Whipple MD MD Neurology 06/16/14 Dragan Ritter MD MD Urology 06/10/17 [facility] [address] [place] [address] documented as of this encounter
--- OUTSIDE RECORDS SUMMARY | 2021-11-20 12:45 | XMS_ITS | Encounter Summary ---
:1945 Author Organization [facility] Address [address] [place] [address]. 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 documented as of this encounter Plan of Treatment Upcoming Encounters Date Type Specialty Care Team Description 03/20/2022 Virtual Visit Neurology Birgit Whipple MD [address] [place] [id number] (Wo rk) documented as of this encounter Visit Diagnoses Not on filedocumented in this encounter Care Teams Computer Mechanic Relationship Specialty Start Date End Date Chele Mena MD PCP - General Internal Medicine 11/28/12 [facility] [address] [place] [address] Birgit Whipple MD MD Neurology 06/16/14 Dragan Ritter MD MD Urology 06/10/17 [facility] [address] [place] [id number] documented as of this encounter
--- OUTSIDE RECORDS SUMMARY | 2021-11-20 12:45 | XMS_ITS | Encounter Summary ---
:1945 Author Organization [facility] Address [address] [place] [address]. [place] [address] Care Team Providers Name Role Phone Chele Mena MD Primary Care Provider Birgit Whipple MD Unavailable Dragan Ritter MD Unavailable Abhishek Salguero MD Unavailable Reason for Visit Reason Comments Medication Refill pregabalin (LYRICA) 50 MG Encounter Details Date Type Department Care Team Description 03/20/2020 Refill [facility] Epilepsy [facility] Sarabjit, Medication Refill [address] (pregabalin (LYRICA) 50 [address] [facility] ) [place] [id number] (Wo rk) Social History Tobacco Use Types Packs/Day Years Used Date Never Smoker Smokeless Tobacco: Never Used Alcohol Use Standard Drinks/Week Comments No 0 (1 standard drink = 0.6 oz pure alcoho l) Sex Assigned at Date Recorded Female 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 ATIONAL ADVISOR documented in this encounter Plan of Treatment Upcoming Encounters Date Type Specialty Care Team Description 03/20/2022 Virtual Visit Neurology Birgit Whipple MD [address] [place] [address] (Wo rk) documented as of this encounter Visit Diagnoses Diagnosis 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 (H) Essential tremor Essential and other specified forms of t remor documented in this encounter Care Teams Automobile Brake Bonder Relationship Specialty Start Date End Date Chele Mena PCP - General Internal Medicine 11/28/12 [place] [facility] [address] [place] [address] Birgit Whipple MD Neurology 06/16/14 Dragan Ritter MD Urology 06/10/17 [facility] [address] [id number] Abhishek Salguero MD Assigned Neuroscience 12/18/19 04/02/20 [address] [place], [place] [id number] documented as of this encounter
--- OUTSIDE RECORDS SUMMARY | 2021-11-20 12:45 | XMS_ITS | Encounter Summary ---
:1945 Author Organization [facility] Address [address] [place] [address]. [place] [address] Care Team Providers Name Role Phone Chele Mena MD Primary Care Provider [phone] Birgit Whipple MD Unavailable Dragan Ritter MD Unavailable Reason for Visit Reason Comments Medication Refill Encounter Details Date Type Department Care Team Description 02/01/2018 Refill [facility] Birgit Whipple, Medication Refill [address] MD [address] [place], [place] [phone] [place] [address] (Wo rk) Social History Tobacco Use Types Packs/Day Years Used Date Never Smoker Smokeless Tobacco: Never Used Alcohol Use Standard Drinks/Week Comments No 0 (1 standard drink = 0.6 oz pure alcoho l) Sex Assigned at Date Recorded 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 Fabian. N CLEANER documented in this encounter Plan of Treatment Upcoming Encounters Date Type Specialty Care Team Description 03/20/2022 Virtual Visit Neurology Birgit Whipple MD [address] [place], [place] [address] (Wo rk) documented as of this encounter Visit Diagnoses Not on filedocumented in this encounter Care Teams Pipe Fitter Supervisor Relationship Specialty Start Date End Date Chele Mena MD PCP - General Internal Medicine 11/28/12 [facility] [address] [place] [address] Birgit Whipple MD MD Neurology 06/16/14 Dragan Ritter MD MD Urology 06/10/17 [facility] [address] [address] documented as of this encounter
--- OUTSIDE RECORDS SUMMARY | 2021-11-20 12:45 | XMS_ITS | Encounter Summary ---
:1945 Author Organization [facility] Address [address] [place] [address]. [place] [address] Care Team Providers Name Role Phone Chele Mena MD Primary Care Provider Birgit Whipple MD Unavailable Dragan Ritter MD Unavailable Reason for Visit Reason Comments Medication Refill PRIMIDONE 250 MG TABLET Encounter Details Date Type Department Care Team Description 03/28/2019 Refill [facility] Epilepsy [facility] Sarabjit Medication Refill [address] (PRIMIDONE 250 MG [address] TABLET) [place] [address] [phone] (Wo rk) Social History Tobacco Use Types Packs/Day Years Used Date Never Smoker Smokeless Tobacco: Never Used Alcohol Use Standard Drinks/Week Comments No 0 (1 standard drink = 0.6 oz pure alcoho l) Sex Assigned at Date Recorded Female 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 documented as of this encounter Miscellaneous Notes Telephone Encounter - Shayna Bullard RN - 03/31/2019 7:18 AM CST PRIMIDONE 250 MG TABLET Last Written Prescription Date: 02/06/2018 Last Fill Quantity: 90, # refills: 3 Last Office Visit : 02/06/2018 Future Office visit: 04/06/2019 Routing refill request to provider for review/approval because: Drug not on the [facility], [facility] or [facility] refill protocol or controlled substance Shayna Bullard RN Central Triage Red Flags/Med Refills MOBILE DAMAGE APPRAISER documented in this encounter Plan of Treatment Upcoming Encounters Date Type Specialty Care Team Description 03/20/2022 Virtual Visit Neurology Birgit Whipple MD [address] [place] [address] (Wo rk) documented as of this encounter Visit Diagnoses Diagnosis Essential tremor Essential and other specified forms of t remor documented in this encounter Care Teams Workers Compensation Attorney Relationship Specialty Start Date End Date Chele Mena MD PCP - General Internal Medicine 11/28/12 [facility] [address] [place] [address] Birgit Whipple MD MD Neurology 06/16/14 Dragan Ritter MD MD Urology 06/10/[address] [facility] [address] [address] documented as of this encounter
--- OUTSIDE RECORDS SUMMARY | 2021-11-20 12:45 | XMS_ITS | Encounter Summary ---
:1945 Author Organization [facility] Address [address] [place] [address]. [place] [address] Care Team Providers Name Role Phone Chele Mena MD Primary Care Provider [phone] Birgit Whipple MD Unavailable Dragan Ritter MD Unavailable Reason for Visit Reason Onset Date Comments Refill Request 03/05/2019 divalproex sodium ex tended-release (DEPAKOTE ER) 250 MG 24 hr tablet Encounter Details Date Type Department Care Team Description 03/05/2019 Refill [facility] Sarabjit, Refill Request [address] (divalproex sodium [address] [facility] extended-release [place], [place] (DEPAKOTE ER) 250 MG 24 [id number] hr tablet) [phone] (Wo rk) Social History Tobacco Use Types Packs/Day Years Used Date Never Smoker Smokeless Tobacco: Never Used Alcohol Use Standard Drinks/Week Comments No 0 (1 standard drink = 0.6 oz pure alcoho l) Sex Assigned at Date Recorded Female 04/04/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 Routing refill request to provider for review/approval because:valproic acid, ast > 26 mths.platelets not found lv > 12 mths Dosing alert. 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
--- OUTSIDE RECORDS SUMMARY | 2021-11-20 12:46 | XMS_ITS | Encounter Summary ---
:1945 Author Organization [place] Address [address] [place] [address]. [place] [address] Care Team Providers Name Role Phone Chele Mena MD Primary Care Provider [phone] Reason for Visit Reason Comments Seizures 6 M follow up; control ok Medication Problem sleepiness; hand tremors Encounter Details Date Type Department Care Team Description 06/19/2013 Office Visit [facility] Rui-Moorkani, Essential and other specifie d forms of tremor (Primary Dx); [address] Genao MD Epilepsy (H) [place], [address] [place] [address] [phone] Social History Tobacco Use Types Packs/Day Years Used Date Never Smoker Smokeless Tobacco: Never Used Sex Assigned at Date Recorded 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 Last dose today at 8 am. Birgit Whipple MD - 06/19/2013 10:47 AM CDT [facility] Progress Note Patient: Kisha Gandara : 1945 Age: [age] year old Today's Office Visit: 06/19/2013 Epilepsy Data: Patient History Primary Epileptologist/Provider: Birgit Whipple M.D. Epilepsy Syndrome: Localization-related epilepsy unspecified Age of Onset: 54 Etiology : Unknown Other Relevant Dx/ Issues: Inpatient evaluations 01/04 and 02/03. 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 History of Depakote-induced hyperammonemia. Tests/Surgery History Last EE01/30/10 Last MRI: 01/10/10 Seizure Record Current Visit Date: 06/19/13 Seizure Type 1: Complex partial seizures unspecified Seizure Type 2: Tonic-clonic seizures History of Present Illness: The patient did not have any seizures last visit. She still has tremors, although it is better sinceDepakote was decreased. Current Outpatient Prescriptions Medication Sig Dispense Refill ??? Ascorbic Acid (VITAMIN C PO) ??? [place]-3 Fatty Acids (FISH OIL PO) ??? Multiple Vitamin (DAILY MULTIVITAMIN PO) ??? aspirin 81 MG tablet Take by mouth daily ??? GLUCOSAMINE PO ??? primidone (MYSOLINE) 50 MG tablet Take 1/2 tab at night for 1 week, then 1 tab at night for 1 week, then increase by 1 tab at night every week up to 5 tabs at night. 150 tablet 5 ??? divalproex (DEPAKOTE) 500 MG EC tablet 1 tab am, 1 tabs pm 60 tablet 0 ??? simvastatin (ZOCOR) 20 MG tablet Take by mouth daily ??? metoprolol (LOPRESSOR) 50 MG tablet Take 50 mg by mouth 2 times daily ??? esomeprazole (NEXIUM) 40 MG capsule Take by mouth daily ??? lisinopril (PRINIVIL,ZESTRIL) 10 MG tablet Take 10 mg by mouth 2 times daily ??? Furosemide (LASIX) 20 MG tablet Take 20 mg by mouth daily ??? anastrozole (ARIMIDEX) 1 MG tablet Take by mouth daily ??? naproxen sodium (ALEVE) 220 MG tablet Take by mouth 2 times daily Perceived AED Side Effects: Yes, tremors Medication Notes: AED Medication Compliance: compliant most of the time Review of Systems: Complete ROS was done and was positive only for slight tiredness and tremor, especially in right hand Ref. Range 11/28/2012 22:25 Valproic Acid Level Latest Range: 50-100 mg/L 55 Valproic Acid Free No range found 9.0 Exam: BP 128/76 Pulse 86 Ht 5' 6.93 (170 cm) Wt 257 lb (116.574 kg) BMI 40.34 kg/m2 Wt Readings from Last 5 Encounters: 06/19/13 257 lb (116.574 kg) 11/28/12 249 lb 12.8 oz (113.309 kg) General appearance: Alert, awake, cooperative. In no apparent distress. Gait: Walks slowly, steady gait, Tandem gait was not tested. Language/speech: No aphasia or dysarthria. Extraocular movements: Intact. No nystagmus. Face is symmetric. Tongue is midline. Coordination: Bilateral tremor in ldcvad-ej-hist as well as postural tremor bilaterally. Limb strength 5/5 with no drift. Normal tone. Assessment and Plan: 1. 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 The patient has not had any seizures on Depakote monotherapy. 2. Tremor got slightly better with decreasing Depakote. Discussed medications for tremors. We decided to start her on primidone. - Continue Depakote 500 mg bid - Will draw AED levels for efficacy, compliance and toxicity. - Will start primidone at 25 mg/day for 1 week, then increase to 50 mg/d for 1 week, then will increase by 50 mg/d every week up to 250 mg/day. - RTC in 6 months. As described above, I met with the patient for 25 minutes and during this time counseling was greater than 50% of the visit time. Birgit Whipple MD documented in this encounter Plan of Treatment Upcoming Encounters Date Type Specialty Care Team Description 03/20/2022 Virtual Visit Neurology Birgit Whipple MD [address] [place] [address] (Wo rk) documented as of this encounter Procedures Procedure Name Priority Date/Time Associated Diagnosis Comme nts VALPROIC ACID FREE Routine 06/19/2013 10:00 AM Epilepsy (H) Re sults for this AND TOTAL CDT procedure are i n the results section. VALPROIC ACID Routine 06/19/2013 10:00 AM Epilepsy (H) Results for this CDT procedure are i n the results section. AST Routine 06/19/2013 10:00 AM Epilepsy (H) Results for this CDT procedure are i n the results section. documented in this encounter Results AST (SGOT) (06/19/2013 10:00 AM CDT) P athologist Signature AST 37 0 - 45 U/L [facility] Specimen Anatomical Collection Method Collection Time Receive d Time (Source) Location / / Volume Laterality Blood specimen VENOUS BLOOD / 06/19/2013 10:00 014 8:47 (specimen) Unknown AM CDT PM CDT Birgit Whipple MD LAB - BLOOD ORDERABLES Performing Organization Address City/State/ZIP Code Phon e Number [address] [facility] Valproic acid free (06/19/2013 10:00 AM CDT) P athologist Signature Valproic Acid 17.6 [facility] Comment: Analysis performed by [employer] [place] [address] Reference range: 6.0 ??to ??20.0 Unit: ug/ml Specimen Anatomical Collection Method Collection Time Receive d Time (Source) Location / / Volume Laterality Blood specimen VENOUS BLOOD / 06/19/2013 10:00 014 8:47 (specimen) Unknown AM CDT PM CDT Birgit Whipple MD LAB - BLOOD ORDERABLES Performing Organization Address City/State/ZIP Code Phon e Number [facility] [address] [place] [address] [facility] Valproic acid (06/19/2013 10:00 AM CDT) P athologist Signature Valproic Acid 66 50 - 100 [facility] Level mg/L [facility] Specimen Anatomical Collection Method Collection Time Receive d Time (Source) Location / / Volume Laterality Blood specimen VENOUS BLOOD / 06/19/2013 10:00 014 8:47 (specimen) Unknown AM CDT PM CDT Birgit Whipple MD LAB - BLOOD ORDERABLES Performing Organization Address City/[facility]/ZIP Code Phon e Number [address] [facility] documented in this encounter Visit Diagnoses Diagnosis Essential and other specified forms of t remor - Primary Epilepsy (H) Unspecified epilepsy without mention of intractable epilepsy documented in this encounter Care Teams Upholsterer Helper Relationship Specialty Start Date End Date Chele Mena MD PCP - General Internal Medicine 11/28/12 [facility] [address] [place] [address] documented as of this encounter
--- OUTSIDE RECORDS SUMMARY | 2021-11-20 12:46 | XMS_ITS | Encounter Summary ---
:1945 Author Organization [place] Address [address] [place] [address]. [place] [address] Care Team Providers Name Role Phone Unavailable Primary Care Provider Unavailable Reason for Visit Rehab Therapy Physical Therapy (Routine) - Closed Specialty Diagnoses / Procedures Referred By Contact Refer red To Contact Physical Therapy Diagnoses MEDICARE left sided disk herniations Andrew Branch Tee Pt Procedures POOL EVAL [address] [facility] [address] [place] [address] [place] [address] Phone: Referral ID Status Reason Start Date Expiration Date Visits Requ ested Visits Authorized [id number] Closed 07/09/2012 01/05/[phone] Encounter Details Date Type Department Care Team Description 09/05/2012 Hospital Encounter [facility] Surya Branch matthew [address] [place] [address] Rehabilitation Services Bindu Haas, PT [facility] [address] [address] [employer] [facility] [address] [place] [address] Social History Tobacco Use Types Packs/Day Years Used Date Never Assessed Sex Assigned at Date Recorded 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 Progress Notes Bindu Haas, PT - 09/05/2012 12:51 PM CDT AQUATIC PHYSICAL THERAPY EXERCISE LOG (TRUNK) Date 07/09/12 Bindu Haas, PT Session 1 08/15/12 Bindu Haas ,PT 08/20/12 Bindu Haas, PT 08/22/12 Bindu Haas, PT 08/27/12 Bindu Haas, PT 09/03/12 Bindu Haas, PT 09/05/12 Bindu Haas, PT Warm Up Ambulation (Forward/Side/Back/April/) 2 f,s,b with FRAME BUILDER 2 f/s/b with FRAME BUILDER 2 f/s/b no FRAME BUILDER 2 f/s/b 2 f/s/b/m 2 f/b/s 2 f/b/s Stretching/ROM Chin Tucks CROM (Flex/Ext/SB/Rot/All) Shoulder (Shrugs/Rolls) Scapular (Retraction/Depression) Upper Trunk (Levator/Scalene/Upper Trapezius) Pec Stretch (Unilateral/Bilateral) Posterior Shoulder Gluteal 30 sec x 2 B 30 sec x 2 B 30 sec X 2 B 30 sec x 2 B 30 sec x 2 B 30 sec x 2 B 30 sec x 2 B Hamstring (On Step/Cuff) 30 sec x 2 B 30 sec x 2 B 30 sec x 2 B 30 sec x 2 B 30 sec x 2 B 30 sec x 2 B 30 sec x 2 B Calf (In Hole/At Wall) 30 sec x 2 B 30 sec x 2 B 30 sec X 2 B 30 sec x2 B 30 sec x 2 B 30 sec x 2 B30 sec x 2 B Quad Hip Flexor (Kneel) Piriformis (Seated/Stand) Trunk ROM (Flex/Ext/SB/Rot/All) BAD LUANNAZ Strengthening Abdominal Sets/ Pelvic Tilt With exercises, educated in core activation With exercises, reminders for core With exercises With exercises With exercises With exercises With exercises Shoulder (Flex/Ext, Abd/Add, IR/ER, Circles) Away from wall with no paddles, x 10 each Away from wall, open paddles x 10 Away from wall with open paddles x 12 Away from wall with open paddles x 12 Away from with wall with closed paddles x 12 Away from with wall with closed paddles x 12 Horizon (Abd/Add, Diagonals) X 10 X 10 X 12 X 12 x12 x12 Rowing Arms UE PNF (D1/D2) Abdominal Sets (Push/Pull, side to side, push down with board) Small x 10 each Small x 10 each Small x 10 each Small x 12 Small x 12 Small x 12 Squat Lunge Squat Hip (Flex/Ext, Abd/Add, single leg bike, circles, figure 8, All) Flex/ext x 10 at wall All except figure 8 x 10 at wall At wall, x 10 each except figure 8 At wall, x 15 each except figure 8 At wall x 15 except figure 8 Away from wall with DB for UE support, x 10 flex/ext and SLB, Wall for hip abd x 10 Away from wall with 2 fingers on wall for support, x 12 each except figure 8 Heel/Toe Raises x10 Step Ups (Forward, Lateral) Noodle Push Downs With assist, colored noodle x 10 Stir the Pot/Punches with Dumbells X 10 Sit to Stand at Bench Aerobic Fast Walking Bike/Ski/Christopher/All Corner bike x 3 min, needed A to prevent floating of LE's up Corner x 3 min Corner x 4 min Corner x 3 min corner 2 min Balance Narrow Base of Support Tandem Stand Single Leg Stance Heel/Toe Walking 3 Step and Stop x5 x5 Braiding Cool Down Ambulation 3 f with no UE support 2 f no UE support X 2f 2 f 1 f 1 f [place] Dangle documented in this encounter Plan of Treatment Upcoming Encounters Date Type Specialty Care Team Description 03/20/2022 Virtual Visit Neurology Birgit Whipple MD [address] [place] [id number] (Wo rk) documented as of this encounter Visit Diagnoses Not on filedocumented in this encounter
--- OUTSIDE RECORDS SUMMARY | 2021-11-20 12:46 | XMS_ITS | Encounter Summary ---
:1945 Author Organization [place] Address [address] [place] [address]. [place] [address] Care Team Providers Name Role Phone Chele Mena MD Primary Care Provider [phone] Reason for Visit Reason Onset Date Comments Medication Request 03/11/2014 PRM 50 mg am? 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 Fabian today and she approved the 50 mg primidone tab also at am. New script will be sent. According to patient she is doing fine. UREMENT ASSISTANT Telephone Encounter - Jacque Valdez RPH - 03/11/2014 9:53 AM CST ----- Message from Willie Mitchell CMA sent at 03/11/2014 9:39 AM PROCUREMENT ASSISTANT ----- Regarding: refill Pt states that she is taking primidone (MYSOLINE) 50mg tablets. Taking 1 tab AM. Needs refill. Pharm: [id number] [place], [place] - [address] [facility] UREMENT ASSISTANT documented in this encounter Plan of Treatment Upcoming Encounters Date Type Specialty Care Team Description 03/20/2022 Virtual Visit Neurology Birgit Whipple MD [address] [place] [address] (Wo rk) documented as of this encounter Visit Diagnoses Diagnosis Essential and other specified forms of t remor - Primary documented in this encounter Care Teams Department Manager Relationship Specialty Start Date End Date Chele Mena MD PCP - General Internal Medicine 11/28/12 [facility] [address] [place] [address] documented as of this encounter
--- OUTSIDE RECORDS SUMMARY | 2021-11-20 12:46 | XMS_ITS | Encounter Summary ---
:1945 Author Organization [place] Address [address] [place] [address]. 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
--- OUTSIDE RECORDS SUMMARY | 2021-11-20 12:46 | XMS_ITS | Encounter Summary ---
:1945 Author Organization [place] Address [address] [place] [address]. [place] [address] Care Team Providers Name Role Phone Unavailable Primary Care Provider Unavailable Reason for Visit Rehab Therapy Physical Therapy (Routine) - Closed Specialty Diagnoses / Procedures Referred By Contact Refer red To Contact Physical Therapy Diagnoses MEDICARE left sided disk herniations Andrew Branch Tee Pt Procedures POOL EVAL [address] [facility] [address] [place] [address] [place] [address] Phone: Referral ID Status Reason Start Date Expiration Date Visits Requ ested Visits Authorized [id number] Closed 07/09/2012 01/05/[phone] Encounter Details Date Type Department Care Team Description 09/24/2012 Hospital Encounter [facility] Surya Branch matthew [address] [place] [address] Rehabilitation Services Bindu Haas, PT [facility] [address] [address] [facility] [address] [place] [address] Social History Tobacco Use Types Packs/Day Years Used Date Never Assessed Sex Assigned at Date Recorded 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 as of this encounter Progress Notes Bindu Haas, PT - 09/24/2012 12:56 PM CDT AQUATIC PHYSICAL THERAPY EXERCISE LOG (TRUNK) Date 07/09/12 Bindu Haas, PT Session 1 08/15/12 Bindu Haas ,PT 08/20/12 Bindu Haas, PT 08/22/12 Bindu Haas, PT 08/27/12 Bindu Haas, PT 09/03/12 Bindu Haas, PT 09/05/12 Bindu Haas, PT 09/24/12 Bindu Haas, PT Warm Up Ambulation (Forward/Side/Back/April/) 2 f,s,b with PRODUCE ASSOCIATE 2 f/s/b with PRODUCE ASSOCIATE 2 f/s/b no PRODUCE ASSOCIATE 2 f/s/b 2 f/s/b/m 2 f/b/s 2 f/b/s 2 f/b/s Stretching/ROM Chin Tucks CROM (Flex/Ext/SB/Rot/All) Shoulder (Shrugs/Rolls) Scapular (Retraction/Depression) Upper Trunk (Levator/Scalene/Upper Trapezius) Pec Stretch (Unilateral/Bilateral) Posterior Shoulder Gluteal 30 sec x 2 B 30 sec x 2 B 30 sec X 2 B 30 sec x 2 B 30 sec x 2 B 30 sec x 2 B 30 sec x 2 B 30 sec x 1 B Hamstring (On Step/Cuff) 30 sec x 2 B 30 sec x 2 B 30 sec x 2 B 30 sec x 2 B 30 sec x 2 B 30 sec x 2 B 30 sec x 2 B 30 sec x 1 B Calf (In Hole/At Wall) 30 sec x 2 B 30 sec x 2 B 30 sec X 2 B 30 sec x2 B 30 sec x 2 B 30 sec x 2 B30 sec x 2 B 30 sec x1 B Quad Hip Flexor (Kneel) Piriformis (Seated/Stand) Trunk ROM (Flex/Ext/SB/Rot/All) BAD RAGAZ Strengthening Abdominal Sets/ Pelvic Tilt With exercises, [...] 12 Small x 12 Small x 12 Small [...] Heel/Toe Raises x10 Step Ups (Forward, Lateral) x10 forward, x 10 side step over Noodle Push Downs With assist, colored noodle x 10 Stir the Pot/Punches with Dumbells X 10 X 10 cues for technique Sit to Stand at Bench Aerobic Fast Walking Bike/Ski/Christopher/All Corner bike x 3 min, needed A to prevent floating of LE's up Corner x 3 min Corner x 4 min Corner x 3 min corner 2 min Balance Narrow Base of Support x20 sec Tandem Stand X 20 sec Single Leg Stance x10 sec Heel/Toe Walking 3 Step and Stop x5 x5 x5 Braiding Cool Down Ambulation 3 f with no UE support 2 f no UE support X 2f 2 f 1 f 1 f 1 f [place] Dangle documented in this encounter Plan of Treatment Upcoming Encounters Date Type Specialty Care Team Description 03/20/2022 Virtual Visit Neurology Birgit Whipple MD [address] [place] [id number] (Wo rk) documented as of this encounter Visit Diagnoses Not on filedocumented in this encounter
--- OUTSIDE RECORDS SUMMARY | 2021-11-20 12:46 | XMS_ITS | Encounter Summary ---
:1945 Author Organization [facility] Address [address] [place] [address]. [place] [address] Care Team Providers Name Role Phone Chele Mena MD Primary Care Provider [phone] Birgit Whipple MD Unavailable Reason for Visit Reason Comments Seizures 6 month follow up Encounter Details Date Type Department Care Team Description 02/08/2015 Office Visit [facility] Sarabjit, Essential and other [address] Angela Genao MD specified forms of [place], [address] tremor (Primary Dx) [place] [address] [phone] Social History Tobacco Use Types Packs/Day Years Used Date Never Smoker Smokeless Tobacco: Never Used Sex Assigned at Date Recorded 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 of 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 encounter Last Filed Vital Signs Vital Sign Reading Time Taken Comments Blood Pressure 128/70 02/08/2015 10:33 AM MOVIE EXTRA Pulse 84 02/08/2015 10:33 AM MOVIE EXTRA Temperature - - Respiratory Rate - - Oxygen Saturation - - Inhaled Oxygen Concentration - - Weight 118 kg (260 lb 3.2 oz) 02/08/2015 10:33 AM MOVIE EXTRA Height 170 cm (5' 6.93) 02/08/2015 10:33 AM MOVIE EXTRA Body Mass Index 40.84 02/08/2015 10:33 AM MOVIE EXTRA documented in this encounter Progress Notes Birgit Whipple MD - 02/08/2015 11:00 AM CST [facility] Progress Note Patient: Shashi Armstrong : 1945 Age: [age] year old Today's Office Visit: 02/08/2015 Epilepsy Data: Patient History Primary Epileptologist/Provider: Birgit Whipple M.D. Epilepsy Syndrome: Localization-related epilepsy unspecified Age of Onset: 54 Etiology : Unknown Other Relevant Dx/ Issues: Inpatient evaluations 01/04 and 02/03. 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 History of Depakote-induced hyperammonemia. Tests/Surgery History Last EE01/30/10 Last MRI: 01/10/10 Seizure Record Current Visit Date: 02/08/15 Previous Visit Date: 07/27/14 Months since last visit: 6.44 Seizure Type 1: Complex partial seizures unspecified Seizure Type 2: Tonic-clonic seizures History of Present Illness: The patient did not have any seizures since last visit. She is on Depakote monotherapy. Her tremors are better on primidone. She has pins and needles in her feet. It started as being numb, but wasn't that bothersome. Now she feels likes she is walking on the rocks. Her PCP did blood work and and started her on gabapentin, which she started last week. Results for SHASHI ARMSTRONG ( ) as of 02/08/2015 11:08 Ref. Range 07/27/2014 14:20 AST Latest Range: 0-45 U/L 31 Primidone Level No range found 5.9 Valproic Acid Level Latest Range: 50-100 mg/L 51 Valproic Acid Free No range found 7.5 Current Outpatient Prescriptions Medication Sig Dispense Refill ??? amoxicillin (AMOXIL) 500 MG capsule Take 2,000 mg by mouth daily ??? clotrimazole (LOTRIMIN) 1 % cream Apply topically 2 times daily as needed ??? gabapentin (NEURONTIN) 300 MG capsule Take 300 mg by mouth 2 times daily ??? naproxen sodium 220 MG capsule Take 220 mg by mouth 2 times daily ??? Oxybutynin (OXYTROL FOR WOMEN TD) Every 4 days ??? divalproex (DEPAKOTE) 500 MG EC tablet 1 tab am, 1 tabs pm 60 tablet 5 ??? primidone (MYSOLINE) 250 MG tablet Take 1 tablet (250 mg) by mouth At Bedtime 30 tablet 6 ??? primidone (MYSOLINE) 50 MG tablet Take 1 tab po am 30 tablet 5 ??? LANsoprazole (PREVACID) 30 MG capsule Take by mouth daily ??? [id number] D PO Take by mouth daily ??? Ascorbic Acid (VITAMIN C PO) ??? Warren-3 Fatty Acids (FISH OIL PO) ??? Multiple Vitamin (DAILY MULTIVITAMIN PO) ??? aspirin 81 MG tablet Take by mouth daily ??? simvastatin (ZOCOR) 20 MG tablet Take by mouth daily ??? metoprolol (LOPRESSOR) 50 MG tablet Take 50 mg by mouth 2 times daily ??? lisinopril (PRINIVIL,ZESTRIL) 10 MG tablet Take 10 mg by mouth 2 times daily ??? divalproex (DEPAKOTE) 500 MG EC tablet 1 tab am, 1 tabs pm 60 tablet 6 Review of Systems: Lethargy / Tiredness: Yes Nausea / Vomiting: No Double Vision: No Sleepiness: Yes Depression: No Memory Problems: No Poor Balance: Yes Dizziness: No Appetite Changes: No Blurred Vision: No Sleep Changes: No symptoms: Urinary frequency Skin: NO rash Respiratory: No shortness of breath, dyspnea on exertion, cough, or hemoptysis Cardiovascular: negative for chest pain Exam: BP 128/70 mmHg Pulse 84 Ht 5' 6.93 (170 cm) Wt 260 lb 3.2 oz (118.026 kg) BMI 40.84 kg/m2 Wt Readings from Last 5 Encounters: 02/08/15 260 lb 3.2 oz (118.026 kg) 07/27/14 266 lb 9.6 oz (120.929 kg) 12/29/13 262 lb (118.842 kg) 06/19/13 257 lb (116.574 kg) 11/28/12 249 lb 12.8 oz (113.309 kg) General appearance: Alert, awake, cooperative, NAD. Gait: wide-based gait due to body habitus Language/speech: No aphasia or dysarthria. Extraocular movements: Intact. No nystagmus. Face is symmetric. Tongue is midline. Coordination: Bilateral minimal tremor in minttx-us-pvfj as well as slight postural tremor bilaterally. Limb strength 5/5 with no drift. Normal tone. Assessment and Plan: 1. 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 - Continue Depakote 500 mg bid 2. Tremors: Are better on primidone - Continue primidone 50 mg am, and 250 mg pm. - RTC in 6 months As described above, I met with the patient for 20 minutes and during this time counseling was greater than 50% of the visit time. Birgit Whipple MD E EXTRA documented in this encounter Plan of Treatment Upcoming Encounters Date Type Specialty Care Team Description 03/20/2022 Virtual Visit Neurology Birgit Whipple MD [address] [place] [id number] (Wo rk) documented as of this encounter Visit Diagnoses Diagnosis Essential and other specified forms of t remor - Primary documented in this encounter Care Teams Electrical Electronics Engineer Relationship Specialty Start Date End Date Chele Mena MD PCP - General Internal Medicine 11/28/12 [facility] [address] [place] [address] Birgit Whipple MD MD Neurology 06/16/14 documented as of this encounter
--- OUTSIDE RECORDS SUMMARY | 2021-11-20 12:46 | XMS_ITS | Encounter Summary ---
:1945 Author Organization [facility] Address [address] [place] [address]. 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
--- OUTSIDE RECORDS SUMMARY | 2021-11-20 12:46 | XMS_ITS | Encounter Summary ---
:1945 Author Organization [facility] Address [address] [place] [address]. 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 documented as of this encounter Plan of Treatment Upcoming Encounters Date Type Specialty Care Team Description 03/20/2022 Virtual Visit Neurology Birgit Whipple MD [address] [place] [address] (Wo rk) documented as of this encounter Visit Diagnoses Diagnosis Localization-related (focal) (partial) e pilepsy and epileptic syndromes with complex partial seizures, without mention of int ractable epilepsy documented in this encounter Care Teams Pipe Threading Machine Operator Relationship Specialty Start Date End Date Chele Mena MD PCP - General Internal Medicine 11/28/12 [facility] [address] [place] [address] documented as of this encounter
--- OUTSIDE RECORDS SUMMARY | 2021-11-20 12:46 | XMS_ITS | Encounter Summary ---
:1945 Author Organization [facility] Address [address] [place] [address]. [place] [address] Care Team Providers Name Role Phone Chele Mena MD Primary Care Provider [phone] Reason for Visit Reason Comments RECHECK Needs refills. Still has iss ues with tremors and hands shaking. 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 She has history of stage III breast cancer. She and her state 4 days after she started chemotherapy, She had 2 generalized tonic-clonic seizures on 12/19. She had no previous history of seizures. Her video-EEG monitoring showed continuing electrographic seizure activity emanating in a broad-based fashion from the left hemisphere, manifesting as cognitive impairment. 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 She was started on Keppra, but still continued having subclinical seizures. Then Vimpat was added but it caused delirium so it was discontinued. Then Trileptal was addedand with Keppra kept seizures under control but it apparently caused rash, so Trileptal was discontinued and the patient was loaded with Depakote. It seemed that the patient had some confusional episodes. The EEG was showing intermittent semirhythmic diffuse delta slowing, which was waxing and waning r ather than occurring in discrete evolving episodes. Therefore, it was thought that the patient has encephalopathy rather than seizure activity. Patient's ammonia level was found to be elevated in the 40s and 60s. The ammonia level decreased after starting Lactulose, then she was discharged on 01/12/2010. The discharge plan was that should the patient again become confused, her would take her to the lab and have her ammonia level drawn. She was also given permission to adjust the patient's Lactulose dose as necessary to achieve 3 bowel movements per day. Depakote level on the day of discharge was 104, ammonia level was 37. Her MRI of the brain 12/23/2009 showed no evidence of metastasis or other significant intracranial abnormality. INTERVAL HISTORY: The patient was last seen in 06/11/2012 by me. The patient did not have any more confusional episodes or seizures or anything that noted as seizure activity. However, the patient was complaining of tremor at last visit. The patient had tremor before starting having seizures and before starting Depakote but they think Depakote has worsen the tremor. The tremor is interfering with her eating and writing and worse in the right hand. The last time I decreased her Depakote by 500mg and she was taking 500 mg in the morning and 1000 mg at night. She does not think that her tremoris better but her thinks it is slightly better. Also with decreasing her Depakote he notes she is more outgoing and more talkative and he thinks she is more like herself now with decreasing Depakote. She thinks she is a little tired during the day and her balance is better. She is walking witha walker. She had physical therapy and pool therapy last summer because of deconditioning and falling. Now she is walking with a walker and she did go into shopping but for short distances. She uses a cane and she is fine. She also has arthritis and was diagnosed with 2 bulged disks in her back. Her memory is better now. Her says for while she had a lot of trouble with remembering, but now she is very good at remembering details about the past events. She also had urinary frequency and urgency. Her last Depakote level was 85.9 with a free level of 16 and that was on 7471-4090 mg per day of Depakote. Her AST was 20. PHYSICAL EXAMINATION: BP 115/73 Pulse 63 Ht 1.7 m (5' 6.93) Wt 113.309 kg (249 lb 12.8 oz) BMI 39.21 kg/m2 General appearance: Alert, awake, cooperative. In no apparent distress. Gait: Walks with a cane. She was very slowly with a cane. Tandem gait was not tested. Language/speech: No aphasia or dysarthria. Extraocular movements: Intact. No nystagmus. Coordination: Bilateral tremor in roldkj-of-ukde as well as postural tremor bilaterally. Face is symmetric. Tongue is midline. Limb strength 5/5 with no drift. Normal tone. ASSESSMENT: 1. 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 The patient has not had any seizures on Depakote monotherapy. 2. Tremor got slightly better with decreasing Depakote. PLAN: 1. Decrease Depakote by 500 mg so she will take 500-500 mg per day. 2. We will draw Depakote level today to assess efficacy for toxicity and compliance. 3. The patient will call if there is any return of seizures. 4. She will return to clinic in 6 months. FRANCISCO JAVIER BURRIS MD MT: LRD Name: SHASHI ARMSTRONG MRN: [id number] Account: [id number] : 1945 Service Date: 11/28/2012 Document: [id number] Janny Pretty CMA - 11/28/2012 11:26 AM CDT Labs drawn today at 11:16 am. Last dose at 8:15 am today. documented in this encounter Plan of Treatment Upcoming Encounters Date Type Specialty Care Team Description 03/20/2022 Virtual Visit Neurology Francisco Javier Burris MD [address] [place] [id number] (Wo rk) documented as of this encounter Procedures Procedure Name Priority Date/Time Associated Diagnosis Comme nts VALPROIC ACID FREE Routine 11/28/2012 10:25 PM Localization-re lated Results for this AND TOTAL CDT (focal) (partial) procedure are in epilepsy and the results epileptic syndromes section. with complex partial seizures, without mention of intractable epilepsy VALPROIC ACID Routine 11/28/2012 10:25 PM Localization-related Results for this CDT (focal) (partial) procedure are in epilepsy and the results epileptic syndromes section. with complex partial seizures, without mention of intractable epilepsy documented in this encounter Results Valproic acid free (11/28/2012 10:25 PM CDT) P athologist Signature Valproic Acid 9.0 [facility] Comment: Analysis performed by [facility] [place] [address] Reference range: 6.0 ??to ??20.0 Unit: ug/ml Specimen Anatomical Collection Method Collection Time Receive d Time (Source) Location / / Volume Laterality Blood specimen VENOUS BLOOD / 11/28/2012 10:25 013 (specimen) Unknown PM CDT 10:26 PM CDT Francisco Javier Burris MD LAB - BLOOD ORDERABLES Performing Organization Address City/State/ZIP Code Phon e Number [address] [id number] [facility] Valproic acid (11/28/2012 10:25 PM CDT) athologist Signature Valproic Acid 55 50 - 100 [facility] Level mg/L CAMPUS LABS Specimen Anatomical Collection Method Collection Time Receive d Time (Source) Location / / Volume Laterality Blood specimen VENOUS BLOOD / 11/28/2012 10:25 013 (specimen) Unknown PM CDT 10:26 PM CDT Francisco Javier Burris MD LAB - BLOOD ORDERABLES Performing Organization Address City/[facility]/ZIP Code Phon e Number [address] [id number] [facility] documented in this encounter Visit Diagnoses Diagnosis Localization-related (focal) (partial) e pilepsy and epileptic syndromes with complex partial seizures, without mention of int ractable epilepsy - Primary documented in this encounter Care Teams Nut Former Relationship Specialty Start Date End Date Chele Mena MD PCP - General Internal Medicine 11/28/12 [facility] [address] [place] [address] documented as of this encounter
--- OUTSIDE RECORDS SUMMARY | 2021-11-20 12:46 | XMS_ITS | Encounter Summary ---
:1945 Author Organization [place] Address [address] [place] [address]. [place] [address] Care Team Providers Name Role Phone Chele Mena MD Primary Care Provider Birgit Whipple MD Unavailable Reason for Visit Reason Comments Seizures 6 month follow up no episode s Encounter Details Date Type Department Care Team Description 08/16/2015 Office Visit [facility] Sarabjit Localization-related epileps y (H) (Primary Dx); [id number] Angela Genao MD Formerly [facility], [address] [place] [phone] [id number] Social History Tobacco Use Types Packs/Day Years Used Date Never Smoker Smokeless Tobacco: Never Used Sex Assigned at Date Recorded 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 Last Filed Vital Signs Vital Sign Reading Time Taken Comments Blood Pressure 113/54 08/16/2015 10:44 AM CDT Pulse 73 08/16/2015 10:44 AM CDT Temperature - - Respiratory Rate - - Oxygen Saturation - - Inhaled Oxygen Concentration - - Weight 117.5 kg (259 lb) 08/16/2015 10:44 AM CDT Height 170 cm (5' 6.93) 08/16/2015 10:44 AM CDT Body Mass Index 40.65 08/16/2015 10:44 AM CDT documented in this encounter Progress Notes Birgit Whipple MD - 08/16/2015 10:18 AM CDT [facility] Progress Note Patient: Shashi Armstrong : 1945 Age: [age] year old Today's Office Visit: 08/16/2015 Epilepsy Data: Patient History Primary Epileptologist/Provider: Birgit Whipple M.D. Epilepsy Syndrome: Localization-related epilepsy unspecified Age of Onset: 54 Etiology : Unknown Other Relevant Dx/ Issues: Inpatient evaluations 01/04 and 02/03. [facility] consulation 12/04 for nonconvulsive status epilepticus. History of Depakote-induced hyperammonemia. Tests/Surgery History Last EE01/30/10 Last MRI: 01/10/10 Seizure Record Current Visit Date: 08/16/15 Previous Visit Date: 02/08/15 Months since last visit: 08.15 Seizure Type 1: Complex partial seizures unspecified Seizure Type 2: Tonic-clonic seizures History of Present Illness: The patient is accompanied by her . She did not have any seizure since last visit. She was hospitalized with septicemia. She had UTI. She was Dx'ed with DM, and was started on Insulin. Her Depakote was increased to 750 mg bid due to infection and her Depakote was in borderline range, and they didn't want her to have a seizure. Her tremors are better. Increased dose of Neurontin caused too much sedation. She was switched to Lyrica and her neuropathy is better. She is taking Lyrica 3 times a day. Current Outpatient Prescriptions Medication Sig Dispense Refill [...] tab am, 1 tabs pm 60 tablet 4 ??? primidone (MYSOLINE) 250 MG tablet Take 1 tablet (250 mg) by mouth At Bedtime 30 tablet 4 ??? primidone (MYSOLINE) 50 MG tablet Take 1 tab po am 30 tablet 5 ??? Oxybutynin (OXYTROL FOR WOMEN TD) Every 4 days ??? divalproex (DEPAKOTE) 500 MG EC tablet 1 tab am, 1 tabs pm 60 tablet 5 ??? LANsoprazole (PREVACID) 30 MG capsule Take by mouth daily ??? MNMUVFI-JRLUCQNHA-VMOPJTC D PO Take by mouth daily ??? Ascorbic Acid (VITAMIN C PO) ??? [place]-3 Fatty Acids (FISH OIL PO) ??? Multiple Vitamin (DAILY MULTIVITAMIN PO) ??? aspirin 81 MG tablet Take by mouth daily ??? simvastatin (ZOCOR) 20 MG tablet Take by mouth daily ??? metoprolol (LOPRESSOR) 50 MG tablet Take 50 mg by mouth 2 times daily ??? lisinopril (PRINIVIL,ZESTRIL) 10 MG tablet Take 10 mg by mouth 2 times daily Perceived AED Side Effects: Uncertain Medication Notes: AED Medication Compliance: compliant all the time Results for SHASHI ARMSTRONG ( ) as of 08/16/2015 11:13 Ref. Range 07/27/2014 14:20 AST Latest Ref Range: 0-45 U/L 31 Primidone Level Unknown 5.9 Valproic Acid Level Latest Ref Range: 50-100 mg/L 51 Valproic Acid Free Unknown 7.5 Review of Systems: Lethargy / Tiredness: Yes Nausea / Vomiting: No Double Vision: No Sleepiness: Yes Depression: No Poor Balance: Yes Dizziness: No Appetite Changes: No Blurred Vision: No Sleep Changes: No Behavioral Changes: No Skin: No rash Respiratory: No shortness of breath and No cough Cardiovascular: No chest pain Have you experienced a traumatic fall since your last visit: NO Woman Care: Patient is: Sexually Active: Yes Type of Control: none : no. Planning to become : No Currently : No Exam: There were no vitals taken for this visit. Wt Readings from Last 5 Encounters: 02/08/15 260 lb 3.2 oz (118.026 kg) 07/27/14 266 lb 9.6 oz (120.929 kg) 12/29/13 262 lb (118.842 kg) 06/19/13 257 lb (116.574 kg) 11/28/12 249 lb 12.8 oz (113.309 kg) General appearance: Alert, awake, cooperative, NAD. Gait: wide-based gait due to body habit, Tandem gait was not tested. Language/speech: No aphasia or dysarthria. Extraocular movements: Intact. No nystagmus. Face is symmetric. Tongue is midline. Coordination: minnimal postural tremor bilaterally. FNF normal Limb strength 5/5 with no drift. Normal tone. 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 - Continue AEDs as before - Obtain AED levels Neuropathy: It's better on Lyrica. - Continue Lyrica 50 mg TID Tremor: Improved on primidone - Continue primidone 250 mg at bedtime As described above, I met with the patient for 25 minutes and during this time counseling was greater than 50% of the visit time. Birgit Whipple MD documented in this encounter Nursing Notes Arabella Davis - 08/16/2015 4:00 PM CDT Medication taken at 8:30 am Blood drawn at 11:20 am Arabella Davis CMA documented in this encounter Plan of Treatment Upcoming Encounters Date Type Specialty Care Team Description 03/20/2022 Virtual Visit Neurology Birgit Whipple MD [address] [place] [id number] (Wo rk) documented as of this encounter Procedures Procedure Name Priority Date/Time Associated Diagnosis Comme nts VALPROIC ACID FREE Routine 08/16/2015 10:30 AM Localization-re lated Results for this AND TOTAL CDT epilepsy (H) procedure are i n the results section. VALPROIC ACID Routine 08/16/2015 10:30 AM Localization-related Results for this CDT epilepsy (H) procedure are i n the results section. PRIMIDONE LEVEL Routine 08/16/2015 10:30 AM Localization-relat ed Results for this CDT epilepsy (H) procedure are i n the results section. documented in this encounter Results Valproic acid free (08/16/2015 10:30 AM CDT) athologist Signature Valproic Acid 11.4 [facility] Comment: Analysis performed by [employer] [place] [address] Reference range: 6.0 ??to ??20.0 Unit: ug/mL Specimen Anatomical Collection Method Collection Time Receive d Time (Source) Location / / Volume Laterality Blood specimen VENOUS BLOOD / 08/16/2015 10:30 016 8:13 (specimen) Unknown AM CDT PM CDT Birgit Whipple MD LAB - BLOOD ORDERABLES Performing Organization Address City/[facility]/ZIP Code Phon e Number [address] Valproic acid (08/16/2015 10:30 AM CDT) athologist Signature Valproic Acid 70 50 - 100 [facility] Level mg/L [facility] Specimen Anatomical Collection Method Collection Time Receive d Time (Source) Location / / Volume Laterality Blood specimen VENOUS BLOOD / 08/16/2015 10:30 016 8:13 (specimen) Unknown AM CDT PM CDT Birgit Whipple MD LAB - BLOOD ORDERABLES Performing Organization Address City/[facility]/ZIP Code Phon e Number [address] Primidone level (08/16/2015 10:30 AM CDT) athologist Signature Primidone 5.2 [facility] Level [facility] Comment: Analysis performed by [employer] [place] [address] Reference range: 5.0 ??to ??12.0 Unit: ug/ml Specimen Anatomical Collection Method Collection Time Receive d Time (Source) Location / / Volume Laterality Blood specimen VENOUS BLOOD / 08/16/2015 10:30 016 8:13 (specimen) Unknown AM CDT PM CDT Birgit Whipple MD LAB - BLOOD ORDERABLES Performing Organization Address City/State/ZIP Code Phon e Number [facility] [address] [place] [address] [facility] documented in this encounter Visit Diagnoses Diagnosis Localization-related epilepsy (H) - Prim willow Localization-related (focal) (partial) e pilepsy and epileptic syndromes with simple partial seizures, without mention of int ractable epilepsy Neuropathy Mononeuritis of unspecified site documented in this encounter Care Teams Transport Assistant Relationship Specialty Start Date End Date Chele Mena MD PCP - General Internal Medicine 11/28/12 [facility] [address] [place] [address] Birgit Whipple MD MD Neurology 06/16/14 documented as of this encounter
--- OUTSIDE RECORDS SUMMARY | 2021-11-20 12:46 | XMS_ITS | Encounter Summary ---
:1945 Author Organization [place] Address [address] [place] [address]. [place] [address] Care Team Providers Name Role Phone Chele Mena MD Primary Care Provider [phone] Reason for Visit Reason Onset Date Comments Medication Question 11/28/2012 Depakote dose clarif ication Encounter Details Date Type Department Care Team Description 11/28/2012 Telephone [facility] Jacque Valdez, Medication Question [address] (Depakote dose [place], [address] [facility] clarification) [place], [place] [address] 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 Divalproex-sodium 500 mg twice a day. 1 tab am - 2 tab pm. 60 tab with [address] Fabian dictation and there she stated she is decreasing divalproex-sodium to 500mg bid. Told pharmacy she intended for 500 mg bid. documented in this encounter Plan of Treatment Upcoming Encounters Date Type Specialty Care Team Description 03/20/2022 Virtual Visit Neurology Birgit Whipple MD [address] [place] [phone] (Wo rk) documented as of this encounter Visit Diagnoses Diagnosis Localization-related (focal) (partial) e pilepsy and epileptic syndromes with complex partial seizures, without mention of int ractable epilepsy - Primary documented in this encounter Care Teams Supervisor Shaving And Splitting Relationship Specialty Start Date End Date Chele Mena MD PCP - General Internal Medicine 11/28/12 [facility] [address] [place] [address] documented as of this encounter
--- OUTSIDE RECORDS SUMMARY | 2021-11-20 12:46 | XMS_ITS | Encounter Summary ---
:1945 Author Organization [place] Address [address] [place] [address]. [place] [address] Care Team Providers Name Role Phone Chele Mena MD Primary Care Provider [phone] Birgit Whipple MD Unavailable Reason for Visit Reason Onset Date Comments Other 01/10/2015 Question related to neuropathy Encounter Details Date Type Department Care Team Description 01/10/2015 Telephone [facility] Epilepsy Care Shayna Parker Other (Question related [address] Angela Arana RN to [address]) [address] [place] [address] Social History Tobacco Use Types Packs/Day Years Used Date Never Smoker Smokeless Tobacco: Never Used Sex Assigned at Date Recorded 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 Fabian at her 02/08/15 appointment and call in the meantime with any further questions or concerns. No further action needed at this time. ER MACHINE OPERATOR Telephone Encounter - Shayna Parker RN - 01/10/2015 10:18 AM CST ----- Message from [employer]ing [employer] CMA sent at 01/10/2015 9:56 AM ZIPPER MACHINE OPERATOR ----- Regarding: BLACK Caller: Kisha Relationship to Patient: Self Call Back Number: [phone] Reason for Call: Patient is having issues with neuropathy and was wondering if Dr. Ramos would be able to help treat the issues. I told them that it is not specific to her seizures so a general neurologist may be best to see but they think it is due to long use of seizure medication. Please call themto discuss who she should be seeing. ER MACHINE OPERATOR documented in this encounter Plan of Treatment Upcoming Encounters Date Type Specialty Care Team Description 03/20/2022 Virtual Visit Neurology Birgit Whipple MD [address] [place] [phone] (Wo rk) documented as of this encounter Visit Diagnoses Not on filedocumented in this encounter Care Teams Brick Tender Relationship Specialty Start Date End Date Chele Mena MD PCP - General Internal Medicine 11/28/12 [facility] [address] [place] [address] Birgit Whipple MD MD Neurology 06/16/14 documented as of this encounter
--- OUTSIDE RECORDS SUMMARY | 2021-11-20 12:46 | XMS_ITS | Encounter Summary ---
:1945 Author Organization [place] Address [facility] 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 The last episode was 20 mintutes ago and patient felt cold,shakey, and dizzy. FNA advised 911. Triage Note: Guideline Title: Gastrointestinal Bleeding Recommended Disposition: Activate EMS 911 Original Inclination: Wanted to speak with a nurse Override Disposition: Intended Action: Follow advice given Physician Contacted: No Passing red, black or tarry material from rectum AND onset of new signs and symptoms of hypovolemia ? YES New or worsening signs and symptoms that may indicate shock ? NO Vomited blood after nosebleed ? NO Following ingestion of toxic or caustic substance ? NO Unbearable abdominal/pelvic pain ? NO Vomiting red, bloody or coffee-ground material, more than streaks of blood or scant amount (not following nosebleed within past day) ? NO Chest discomfort associated with shortness of breath, sweating, odd heartbeats or different heart rate, nausea, vomiting, lightheadedness, or fainting lasting 5 or more minutes now or within the last hour ? NO Chest pain spreading to the shoulders, neck, jaw, in one or both arms, stomach or back lasting 5 or more minutes now or within the last hour. Pain is NOT associated with taking a deep breath or a productive cough, movement, or touch to a localized area. ? NO Pressure, fullness, squeezing sensation or pain anywhere in the chest lasting 5 or more minutes now or within the last hour. Pain is NOT associated with taking a deep breath or a productive cough, movement, or touch to a localized area on the chest. ? NO Bloody diarrhea AND has not been evaluated ? NO History of esophageal varices AND more than one episode of black or tarry stool ? NO Physician Instructions: Care Advice: Lay the person down and elevate legs at least 12 inches (30 cm) above level of heart. Cover to help maintain body temperature. An adult should stay with the patient, preferably one trained in CPR. If the person is not trained in CPR, then he or she should provide hands-only (compression-only) CPR as recommended by the [employer] [place] [employer]. documented in this encounter Plan of Treatment Upcoming Encounters Date Type Specialty Care Team Description 03/20/2022 Virtual Visit Neurology Birgit Whipple MD [address] [place], [place] [id number] (Wo rk) documented as of this encounter Visit Diagnoses Not on filedocumented in this encounter Care Teams Darkroom Technician Relationship Specialty Start Date End Date Chele Mena MD PCP - General Internal Medicine 11/28/12 [facility] [address] [place] [address] Birgit Whipple MD MD Neurology 06/16/14 documented as of this encounter
--- OUTSIDE RECORDS SUMMARY | 2021-11-20 12:46 | XMS_ITS | Encounter Summary ---
:1945 Author Organization [place] Address [address] [place] [address]. 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
--- OUTSIDE RECORDS SUMMARY | 2021-11-20 12:46 | XMS_ITS | Encounter Summary ---
:1945 Author Organization [place] Address [address] [place] [address]. 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 documented as of this encounter Plan of Treatment Upcoming Encounters Date Type Specialty Care Team Description 03/20/2022 Virtual Visit Neurology Birgit Whipple MD [address] [place] [address] (Wo rk) documented as of this encounter Visit Diagnoses Diagnosis 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
--- OUTSIDE RECORDS SUMMARY | 2021-11-20 12:46 | XMS_ITS | Encounter Summary ---
:1945 Author Organization [facility] Address [address] [place] [address]. [place] [address] Care Team Providers Name Role Phone Chele Mena MD Primary Care Provider [phone] Reason for Visit Reason Comments RECHECK No seizures or episodes. 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 as of this encounter Last Filed Vital Signs Vital Sign Reading Time Taken Comments Blood Pressure 141/72 12/29/2013 3:39 PM SIGN BUILDER Pulse 91 12/29/2013 3:39 PM SIGN BUILDER Temperature - - Respiratory Rate - - Oxygen Saturation - - Inhaled Oxygen Concentration - - Weight 118.8 kg (262 lb) 12/29/2013 3:39 PM SIGN BUILDER Height 170 cm (5' 6.93) 12/29/2013 3:39 PM SIGN BUILDER Body Mass Index 41.12 12/29/2013 3:39 PM SIGN BUILDER documented in this encounter Progress Notes Birgit Whipple MD - 12/29/2013 4:03 PM CST [facility] Progress Note Patient: Kisha Gandara : 1945 Age: [age] year old Today's Office Visit: 12/29/2013 Epilepsy Data: Patient History Primary Epileptologist/Provider: Birgit Whipple M.D. Epilepsy Syndrome: Localization-related epilepsy unspecified Age of Onset: 54 Etiology : Unknown Other Relevant Dx/ Issues: Inpatient evaluations 01/04 and 02/03. 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 History of Depakote-induced hyperammonemia. Tests/Surgery History Last EE01/30/10 Last MRI: 01/10/10 Seizure Record Current Visit Date: 12/29/13 Previous Visit Date: 06/19/13 Months since last visit: 6.34 Seizure Type 1: Complex partial seizures unspecified Seizure Type 2: Tonic-clonic seizures History of Present Illness: The patient reports no seizures since last visit. She had a recent surgery (left knee replacement). She has PT twice a week. Her tremor is better on primidone Current Outpatient Prescriptions Medication Sig Dispense Refill ??? LANsoprazole (PREVACID) 30 MG capsule Take by mouth daily ??? hydrOXYzine (VISTARIL) 25 MG capsule Take 25 mg by mouth 3 times daily as needed for itching Take one or two capsules by mouth every three hours as needed. ??? oxyCODONE-acetaminophen (PERCOCET) 5-325 MG per tablet Take 1 tablet by mouth every 4 hours as needed for moderate to severe pain Take two tablets by mouth prior to therapy for moderate pain take one tab every 4 hours as needed. For severe pain take two tabs every 4 hours as needed. ??? ACQGPNT-QBEGKEITZ-YYMKVKK D PO Take by mouth daily ??? divalproex (DEPAKOTE) 500 MG EC tablet 1 tab am, 1 tabs pm 60 tablet 3 ??? Ascorbic Acid (VITAMIN C PO) ??? [place]-3 Fatty Acids (FISH OIL PO) ??? Multiple Vitamin (DAILY MULTIVITAMIN PO) ??? aspirin 81 MG tablet Take by mouth daily ??? GLUCOSAMINE PO ??? primidone (MYSOLINE) 50 MG tablet Take 1/2 tab at night for 1 week, then 1 tab at night for 1 week, then increase by 1 tab at night every week up to 5 tabs at night. (Patient taking differently: 5 tablets pm) 150 tablet 5 ??? simvastatin (ZOCOR) 20 MG tablet Take by mouth daily ??? metoprolol (LOPRESSOR) 50 MG tablet Take 50 mg by mouth 2 times daily ??? lisinopril (PRINIVIL,ZESTRIL) 10 MG tablet Take 10 mg by mouth 2 times daily ??? anastrozole (ARIMIDEX) 1 MG tablet Take by mouth daily Ref. Range 06/19/2013 10:00 Valproic Acid Level Latest Range: 50-100 mg/L 66 Valproic Acid Free No range found 17.6 Review of Systems: Lethargy / Tiredness: Yes, she is on pain meds and antihistamines, which can cause tiredness Nausea / Vomiting: No Double Vision: No Poor Balance: No Dizziness: No Tremor is better Exam: BP 141/72 Pulse 91 Ht 5' 6.93 (170 cm) Wt 262 lb (118.842 kg) BMI 41.12 kg/m2 Wt Readings from Last 5 Encounters: 12/29/13 262 lb (118.842 kg) 06/19/13 257 lb (116.574 kg) 11/28/12 249 lb 12.8 oz (113.309 kg) General appearance: Alert, awake, cooperative. In no apparent distress. Gait: Walks slowly, steady gait, Tandem gait was not tested. Language/speech: No aphasia or dysarthria. Extraocular movements: Intact. No nystagmus. Face is symmetric. Tongue is midline. Coordination: Bilateral tremor in [id number] as well as postural tremor bilaterally. Limb strength 5/5 with no drift. Normal tone. Assessment and Plan: 1. 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 The patient has not had any seizures on Depakote monotherapy, no significant SEs. - Continue Depakote at current dose 2. Tremor: better on Primidone - continue primidone - RTC in 6 months As described above, I met with the patient for 25 minutes and during this time counseling was greater than 50% of the visit time. 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
--- OUTSIDE RECORDS SUMMARY | 2021-11-20 12:46 | XMS_ITS | Encounter Summary ---
:1945 Author Organization [facility] Address [address] [place] [address]. 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
--- OUTSIDE RECORDS SUMMARY | 2021-11-20 12:46 | XMS_ITS | Encounter Summary ---
:1945 Author Organization [facility] Address [address] [place] [address]. [place] [address] Care Team Providers Name Role Phone Chele Mena MD Primary Care Provider [phone] Birgit Whipple MD Unavailable Reason for Visit Reason Comments RECHECK Starting using CPAP. No know n seizures since last appointment. 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 as of this encounter Last Filed Vital Signs Vital Sign Reading Time Taken Comments Blood Pressure 127/73 07/27/2014 2:01 PM CDT Pulse 83 07/27/2014 2:01 PM CDT Temperature - - Respiratory Rate - - Oxygen Saturation - - Inhaled Oxygen Concentration - - Weight 120.9 kg (266 lb 9.6 oz) 07/27/2014 2:01 PM CDT Height 170 cm (5' 6.93) 07/27/2014 2:01 PM CDT Body Mass Index 41.84 07/27/2014 2:01 PM CDT documented in this encounter Progress Notes Birgit Whipple MD - 07/27/2014 2:11 PM CDT [facility] Progress Note Patient: Kisha Gandara : 1945 Age: [age] year old Today's Office Visit: 07/27/2014 Epilepsy Data: Patient History Primary Epileptologist/Provider: Birgit Whipple M.D. Epilepsy Syndrome: Localization-related epilepsy unspecified Age of Onset: 54 Etiology : Unknown Other Relevant Dx/ Issues: Inpatient evaluations 01/04 and 02/03. 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 History of Depakote-induced hyperammonemia. Tests/Surgery History Last EE01/30/10 Last MRI: 01/10/10 Seizure Record Current Visit Date: 07/27/14 Previous Visit Date: 12/29/13 Months since last visit: 6.9 Seizure Type 1: Complex partial seizures unspecified # of Type 1 Seizure since last visit: 0 Freq. Type 1 / Month: 0 Seizure Type 2: Tonic-clonic seizures # of Type 2 Seizure since last visit: 0 Freq. Type 2 / Month: 0 History of Present Illness: No reported seizures. Tremors are better with increased primidone, 50 mg was added in the morning in addition to 250 mg at night. She doesn't have problem with writing any more, only once in a while her note the tremor. She had sleep study and was found she had TOM, she uses a C-PAP machine, now sleeps better, and her daytime drowsiness is better. Current Outpatient Prescriptions Medication Sig Dispense Refill ??? Fluticasone Propionate (FLONASE NA) ??? Oxybutynin (OXYTROL FOR WOMEN TD) Every 4 days ??? primidone (MYSOLINE) 50 MG tablet Take 1 tab po am 30 tablet 5 ??? divalproex (DEPAKOTE) 500 MG EC tablet 1 tab am, 1 tabs pm 60 tablet 5 ??? LANsoprazole (PREVACID) 30 MG capsule Take by mouth daily ??? WRRITPI-PYYYTCOJI-MUSFGVH D PO Take by mouth daily ??? primidone (MYSOLINE) 250 MG tablet Take 1 tablet (250 mg) by mouth At Bedtime 30 tablet 6 ??? Ascorbic Acid (VITAMIN C PO) ??? [place]-3 Fatty Acids (FISH OIL PO) ??? Multiple Vitamin (DAILY MULTIVITAMIN PO) ??? aspirin 81 MG tablet Take by mouth daily ??? GLUCOSAMINE PO ??? simvastatin (ZOCOR) 20 MG tablet Take by mouth daily ??? metoprolol (LOPRESSOR) 50 MG tablet Take 50 mg by mouth 2 times daily ??? lisinopril (PRINIVIL,ZESTRIL) 10 MG tablet Take 10 mg by mouth 2 times daily ??? anastrozole (ARIMIDEX) 1 MG tablet Take by mouth daily ??? divalproex (DEPAKOTE) 500 MG EC tablet 1 tab am, 1 tabs pm 60 tablet 6 Medication Notes: AED Medication Compliance: compliant most of the time Review of Systems: Her knee is better after surgery, she does exercise, goes to [employer] and has a personal financial representative. Lethargy / Tiredness: No Nausea / Vomiting: No Double Vision: No Sleepiness: No Depression: No Slowed Cognitive Function: No Memory Problems: No Poor Balance: No Dizziness: No Appetite Changes: No Blurred Vision: No Sleep Changes: Dx'ed with TOM, and sleeps better with C-PAP Behavioral Changes: No Skin: No rash Respiratory: No cough or shortness of breath Cardiovascular: No chest pain Exam: BP 127/73 mmHg Pulse 83 Ht 5' 6.93 (170 cm) Wt 266 lb 9.6 oz (120.929 kg) BMI 41.84 kg/m2 Wt Readings from Last 5 Encounters: 07/27/14 266 lb 9.6 oz (120.929 kg) 12/29/13 262 lb (118.842 kg) 06/19/13 257 lb (116.574 kg) 11/28/12 249 lb 12.8 oz (113.309 kg) General appearance: Alert, awake, cooperative, NAD. Gait: wide-based gait due to body habit, Tandem gait was not tested. Language/speech: No aphasia or dysarthria. Extraocular movements: Intact. No nystagmus. Face is symmetric. Tongue is midline. Coordination: Bilateral minimal tremor in [id number] as well as slight postural tremor bilaterally. Limb strength 5/5 with no drift. Normal tone. Assessment and Plan: 1. 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 The patient's seizures are well- controlled on Depakote monotherapy, no significant SEs. - Continue Depakote 500 mg, bid - Will draw Depakote and primidone level today 2. Tremor: better on Primidone - continue primidone 50 mg, am, and 250 mg pm - RTC in 6 months As described above, I met with the patient for 25 minutes and during this time counseling was greater than 50% of the visit time. Birgit Whipple MD documented in this encounter Plan of Treatment Upcoming Encounters Date Type Specialty Care Team Description 03/20/2022 Virtual Visit Neurology Birgit Whipple MD [address] [place] [address] (Wo rk) documented as of this encounter Procedures Procedure Name Priority Date/Time Associated Diagnosis Comme nts VALPROIC ACID FREE Routine 07/27/2014 2:20 PM Localization-rel ated Results for this AND TOTAL CDT (focal) (partial) procedure are in epilepsy and the results epileptic syndromes section. with complex partial seizures, without mention of intractable epilepsy VALPROIC ACID Routine 07/27/2014 2:20 PM Localization-related Results for this CDT (focal) (partial) procedure are in epilepsy and the results epileptic syndromes section. with complex partial seizures, without mention of intractable epilepsy PRIMIDONE LEVEL Routine 07/27/2014 2:20 PM Localization-relate d Results for this CDT (focal) (partial) procedure are in epilepsy and the results epileptic syndromes section. with complex partial seizures, without mention of intractable epilepsy AST Routine 07/27/2014 2:20 PM Localization-related R esults for this CDT (focal) (partial) procedure are in epilepsy and the results epileptic syndromes section. with complex partial seizures, without mention of intractable epilepsy documented in this encounter Results AST (SGOT) (07/27/2014 2:20 PM CDT) P athologist Signature AST 31 0 - 45 U/L [facility] Specimen Anatomical Collection Method Collection Time Receive d Time (Source) Location / / Volume Laterality Blood specimen VENOUS BLOOD / 07/27/2014 2:20 PM 07/27 9:58 (specimen) Unknown CDT PM CDT Birgit Whipple MD LAB - BLOOD ORDERABLES Performing Organization Address City/[facility]/ZIP Code Phon e Number [address] Valproic acid free (07/27/2014 2:20 PM CDT) athologist Signature Valproic Acid 7.5 [facility] Comment: Analysis performed by [employer] [place] [address] Reference range: 6.0 ??to ??20.0 Unit: ug/ml Specimen Anatomical Collection Method Collection Time Receive d Time (Source) Location / / Volume Laterality Blood specimen VENOUS BLOOD / 07/27/2014 2:20 PM 07/27 9:58 (specimen) Unknown CDT PM CDT Birgit Whipple MD LAB - BLOOD ORDERABLES Performing Organization Address City/State/ZIP Code Phon e Number [address] Valproic acid (07/27/2014 2:20 PM CDT) athologist Signature Valproic Acid 51 50 - 100 [facility] Level mg/L [facility] Specimen Anatomical Collection Method Collection Time Receive d Time (Source) Location / / Volume Laterality Blood specimen VENOUS BLOOD / 07/27/2014 2:20 PM 07/27 9:58 (specimen) Unknown CDT PM CDT Birgit Whipple MD LAB - BLOOD ORDERABLES Performing Organization Address City/[facility]/ZIP Code Phon e Number [facility] [address] Primidone level (07/27/2014 2:20 PM CDT) athologist Signature Primidone 5.9 [facility] Level [facility] Comment: Analysis performed by [employer] [place] [address] Reference range: 5.0 ??to ??12.0 Unit: ug/ml Specimen Anatomical Collection Method Collection Time Receive d Time (Source) Location / / Volume Laterality Blood specimen VENOUS BLOOD / 07/27/2014 2:20 PM 07/27 9:58 (specimen) Unknown CDT PM CDT Birgit Whipple MD LAB - BLOOD ORDERABLES Performing Organization Address City/State/ZIP Code Phon e Number [id number] [place] [address] documented in this encounter Visit Diagnoses Diagnosis 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
--- OUTSIDE RECORDS SUMMARY | 2021-11-20 12:47 | XMS_ITS | Encounter Summary ---
:1945 Author Organization [facility] Address [address] [place] [address]. 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 documented in this encounter Results UPPER GI ENDOSCOPY (09/29/2009 7:30 AM CDT) Component Value Ref Test Analysis Performed At [facility] Range Method Time Signature Upper GI [facility] RADIO LOGY Endoscopy RESULTS Patient Name: Kisha evans ? Gender: F ? Procedure Date: 09/29/2009 7:3 0 AM ? Date of : 1945 ? Age: 64 ? Admit Type: Outpatient ? Attending MD: Navi Chairez MD ? Procedure: ? Upper GI endoscopy Indications: ? Dysphagia, recurrent, Nausea with v omiting Providers: ? Navi Chairez MD Referring MD: ?Binu Kong MD Medicines: ? Fentanyl 100 micrograms IV, Midazo jordan 1.5 mg IV, ? Benzocaine spray Complications: ? No immediate complications Procedure: ? - Prior to the procedure, a History and Physical was ? performed, and patient medication allergies were ? reviewed. The patient is competent. The risks and ? benefits of the procedure and the sedation options and ? risks were discussed with the patient. All questions ? were answered and informed consent was obtained. Patient ? identification and proposed procedure were verified by ? the physician in the procedure room. Mental Status ? Examination: alert and oriented. Airway Examination: ? normal oropharyng eal airway and neck mobility. ? Respiratory Examination: clear to auscultation. CV ? Examination: normal. ASA Grade Assessment: I - A normal, ? healthy patient. After reviewing the risks and benefits, ? the patient was deemed in satisfactory condition to ? undergo the procedure. The anesthesia plan was to use ? moderate sedation / analgesia (conscious sedation). ? Immediately prior to administration of medications, the ? patient w as re-assessed for adequacy to receive ? sedatives. The heart rate, respiratory rate, oxygen ? saturations, blood pressure, adequacy of pulmonary ? ventilation, and response to care were monitored ? throughout the procedure. The physical status of the ? patient was re-assessed aft er the procedure. ? After obtaining informed consent, the endoscope was ? passed under direct vision. Throughout the procedure, ? the patie nt's blood pressure, pulse, and oxygen ? saturations were monitored continuously. The GIF-Q-180 ? was introduced through the mouth, and advanced to the ? second part of duodenum. The upper GI endoscopy was ? accomplished without difficulty. The patient tolerated ? the procedure well. ? Findings: ? The cricopharyngeus, upper third of the e sophagus, middle third of the ? esophagus and lower third of the esophagus were normal. A TTS dilator ? was passed through the scope. Dilation wi th a 18 mm esophageal balloon ? dilator was successfully performed. The entire examin ed stomach and ? gastroesophageal junction (on retroflexion) wer e normal. The duodenal ? bulb and 2nd part of the duodenum were normal. ? Impression: ?- Normal cricopharyngeus, upper third of the esophagus, ? middle third of the esophagus and lower third of the ? esophagus. ? - Normal stomach. ? - Normal duodenal bulb and 2nd part of the duodenum. ? - ? esophageal dysmotility. Recommendation: ?- Discharge patient to home (ambulat ory). ? - Continue present medicines. ? - Eat slowly and separate the solids from the liquids ? during a meal. ? For example: take the solids first, then drink the ? fluids. ? -No smoking or chewing tobacc o. ? -No gum chewing. ? -Avoid intake of caffeine and minimize the intake of ? carbonated beverages. ? -Do not use straws to drink f luids. ? -Minimize stress. ? Take Gaviscon as needed. ? - Patient should telephone endoscopist in 1 week - ? progress report. ? - Return to primary care phys ician PRN. ? Rosy Chairez M.D Navi Chairez MD Signed Date: 09/29/2009 8:04 AM Number of Addenda: 0 I was physically present for the entire viewing portion of t he exam. Note initiated on 09/29/2009 7:29 AM Specimen (Source) Anatomical Collection Method Collection Time Re ceived Time Location / / Volume Laterality 09/29/2009 7:30 AM CDT Binu Kong MD PROCEDURES Performing Organization Address City/State/ZIP Code Phon e Number RADIOLOGY RESULTS documented in this encounter Visit Diagnoses Not on filedocumented in this encounter
--- OUTSIDE RECORDS SUMMARY | 2021-11-20 12:47 | XMS_ITS | Encounter Summary ---
:1945 Author Organization [facility] Address [address] [place] [address]. 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 documented in this encounter Results COLONOSCOPY (09/05/2007 9:35 AM CDT) [facility] Method Time Signature COLONOSCOPY Endoscopy RADIOLOGY RESULTS Patient Name: Kisha evans ? Gender: F ? Procedure Date: 09/05/2007 9: 35 AM ? Date of : 1945 ? Age: 62 ? Admit Type: Outpatient ? Attending MD: Navi Chairez MD ? Procedure: ? Colonoscopy Indications: ? Average risk screening for malignant neoplasm in the ? colon Providers: ? Navi Chairez MD Referring MD: ?Binu Kong MD Medicines: ? Fe ntanyl 100 micrograms IV, Midazolam 2 mg IV, Atropine ? 0.6 mg IV Complications: ? No immediate complications Procedure: ? [...] procedure. ? After obtaining informed consent, the colonoscope was ? passed under direct vision. Throughout the procedure, ? the patie nt's blood pressure, pulse, and oxygen ? saturations were monitored continuously. The [id number] ? #[id number] was introduced through the anus and advanced to ? the cecum, identified by appendiceal orifice & IC valve. ? The colonoscopy was performed without difficulty. The ? patient tolerated the procedure well. The quality of the ? prep was good. ? Findings: ? The digital rectal exam was normal. Multi ple small-mouthed diverticula ? were found in the sig moid colon. A sessile polyp was found in the cecum. ? The polyp was 3 mm in size. This was biopsied with a hot forceps for ? histology. The rectum, descending colon, splenic fl exure, transverse ? colon, hepatic flexure, ascending colon and ileocec al valve appeared ? normal. The retroflexed view of t he anal verge was normal and showed no ? anal or rectal abnormalities. ? Impression: ?- Diverticulosis sigmoid colon. ? - A 3 mm polyp in the cecum. Tissue was removed. ? - The rectum, descending colon, splenic flexure, ? transverse colon, hepatic flexure, ascending colon and ? ileocecal valve are normal. Recommendation: ?- Discharge patient to home (ambulat ory). ? - Patient should telephone endoscopist in 1 week. ? - If polyp is adenomatous repeat colonoscopy in 3 years. ? If polyp is hyperplastic then hemoccults q yr and flex ? sigmoidoscopy in 3 yrs. ? - Return to primary care phys ician PRN. ? R Mihaela Gutierrez Navi Chairez MD Signed Date: 09/05/2007 10:13 AM Number of Addenda: 0 I was physically present for the entire viewing portion of t he exam. Note initiated on 09/05/2007 9:33 AM COLONOSCOPY RADIOLOGY RESULTS Specimen (Source) Anatomical Collection Method Collection Time Re ceived Time Location / / Volume Laterality 09/05/2007 9:35 AM CDT Binu Kong MD PROCEDURES Performing Organization Address City/State/ZIP Code Phon e Number RADIOLOGY RESULTS documented in this encounter Visit Diagnoses Not on filedocumented in this encounter
--- OUTSIDE RECORDS SUMMARY | 2021-11-20 12:47 | XMS_ITS | Encounter Summary ---
:1945 Author Organization [facility] Address [address] [place] [address]. [place] [address] Care Team Providers Name Role Phone Unavailable Primary Care Provider Unavailable Reason for Visit Rehab Therapy Physical Therapy (Routine) - Closed Specialty Diagnoses / Procedures Referred By Contact Refer red To Contact Physical Therapy Diagnoses MEDICARE left sided disk herniations Andrew Branch Tee Pt Procedures POOL EVAL [address] [facility] [address] [place] [address] [place] [address] Phone: Referral ID Status Reason Start Date Expiration Date Visits Requ ested Visits Authorized [id number] Closed 07/09/2012 01/05/[phone] Encounter Details Date Type Department Care Team Description 08/15/2012 Hospital Encounter [facility] Surya Branch matthew [address] [place] [address] No Show Rehabilitation Services Bindu Haas, PT [facility] [address] [address] [address] [place] [address] Social History Tobacco Use Types Packs/Day Years Used Date Never Assessed Sex Assigned at Date Recorded 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 encounter Progress Notes Bindu Haas, PT - 08/15/2012 12:21 PM CDT AQUATIC PHYSICAL THERAPY EXERCISE LOG (TRUNK) Date 07/09/12 Bindu Haas PT Session 1 08/15/12 Bindu Haas PT Warm Up Ambulation (Forward/Side/Back/April/) 2 f,s,b with AXLE AND FRAME MECHANIC 2 f/s/b with AXLE AND FRAME MECHANIC Stretching/ROM Chin Tucks CROM (Flex/Ext/SB/Rot/All) Shoulder (Shrugs/Rolls) Scapular (Retraction/Depression) Upper Trunk (Levator/Scalene/Upper Trapezius) Pec Stretch (Unilateral/Bilateral) Posterior Shoulder Gluteal 30 sec x 2 B 30 sec x 2 B Hamstring (On Step/Cuff) 30 sec x 2 B 30 sec x 2 B Calf (In Hole/At Wall) 30 sec x 2 B 30 sec x 2 B Quad Hip Flexor (Kneel) Piriformis (Seated/Stand) Trunk ROM (Flex/Ext/SB/Rot/All) BAD RAGAZ Strengthening Abdominal Sets/ Pelvic Tilt With exercises, educated in core activation With exercises, reminders for core Shoulder (Flex/Ext, Abd/Add, IR/ER, Circles) Away from wall with no paddles, x 10 each Horizon (Abd/Add, Diagonals) X 10 Rowing Arms UE PNF (D1/D2) Abdominal Sets (Push/Pull, side to side, push down with board) Small x 10 each Squat Lunge Squat Hip (Flex/Ext, Abd/Add, single leg bike, circles, figure 8, All) Flex/ext x 10 at wall All except figure 8 x 10 at wall Heel/Toe Raises Step Ups (Forward, Lateral) Noodle Push Downs Stir the Pot/Punches with Dumbells Sit to Stand at Bench Aerobic Fast Walking Bike/Ski/Christopher/All Balance Narrow Base of Support Tandem Stand Single Leg Stance Heel/Toe Walking 3 Step and Stop Braiding Cool Down Ambulation 3 f with no UE support [place] Dangle documented in this encounter Plan of Treatment Upcoming Encounters Date Type Specialty Care Team Description 03/20/2022 Virtual Visit Neurology Birgit Whipple MD [address] [place] [address] (Wo rk) documented as of this encounter Visit Diagnoses Not on filedocumented in this encounter
--- OUTSIDE RECORDS SUMMARY | 2021-11-20 12:47 | XMS_ITS | Encounter Summary ---
:1945 Author Organization [facility] Address [address] [place] [address]. 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 documented in this encounter Results CT Therapy correlate (06/13/2010 12:07 PM CDT) Specimen (Source) Anatomical Collection Method Collection Time Re ceived Time Location / / Volume Laterality 06/13/2010 12:07 PM CDT Impressions RADIOLOGY RESULTS - 06/13/2010 12:[address] THERAPY CORRELATE Jun 13, 2010 12:07: 00 PM HISTORY: ??Left breast cancer. ?? TECHNIQUE: ??Noncontrast. COMPARISON: ??None. FINDINGS: ??Right subclavian line tip in the distal SVC. Probable atelectasis bilaterally. Coronary artery calcifications. Postoperative changes with an 11 x 6.4 cm subcutaneous seroma in the left breast. Small hiatal hernia. Partially imaged 10 cm cyst in the left upper abdomen, likely arising from the left ki dney. ? IMPRESSION: ??CT chest for radiation the rapy planning. Rossi Brito DO IMG CT ORDERABLES Performing Organization Address City/State/ZIP Code Phon e Number RADIOLOGY RESULTS documented in this encounter Visit Diagnoses Not on filedocumented in this encounter
--- OUTSIDE RECORDS SUMMARY | 2021-11-20 12:47 | XMS_ITS ---
:1945 Author Care Team Providers Name Role Phone ORA ARIAS MD Primary Care Provider [phone] Allergies Code Code System Name Reaction Severity Status Onset 105958 RxNorm Bee Pollen ? ? Active ? 2193 RxNorm Ceftriaxone ? ? Active ? 497481 RxNorm Trileptal ? ? Active ? 069659 RxNorm Vimpat ? ? Active ? Medications Name Status Start Date Stop Date ? ? Accu-Chek Guide Me Glucose Meter Active ? Not available USE DIRECTED Accu-Chek Guide test strips Active ? Not available TEST ONCE DAILY Accu-Chek Softclix Lancets Active ? Not a vailable TEST 1 TIME DAILY amoxicillin 500 mg capsule Completed ? 08/14 TAKE 1 CAPSULE BY MOUTH 4 TIMES A DAY UNTIL GONE Basaglar KwikPen U-100 Insulin 100 unit/mL (3 mL) subcutaneous A ctive ? Not available INJECT 12 UNITS SUBCUTANEOUSLY AT BEDTIME BD Zina 2nd Gen Pen Needle 32 gauge x Active ? Not available USE THREE TIME DAILY BD Ultra-Fine Mini Pen Needle 31 gauge x 05/10 Active ? Not available USE TO INJECT THREE TIMES DAILY BinaxNOW COVID-19 Ag Self Test kit Completed ? 08/14/2021 FOLLOW INSTRUCTIONS IN PACKAGING divalproex ER 250 mg tablet,extended release 24 hr Active ? Not available TAKE 3 TABLETS (750 MG) BY MOUTH 2 TIMES DAILY hydrocodone 5 mg-acetaminophen 325 mg tablet Active ? Not available TAKE 1 TO 2 TABLETS BY MOUTH EVERY 4 TO 6HRS NEEDED FOR PAIN . lisinopril 10 mg tablet Active ? Not avai lable TAKE 1 TABLET BY MOUTH ONCE DAILY metoprolol tartrate 50 mg tablet Active ? Not available TAKE 1 TABLET BY MOUTH TWICE A DAY nystatin 100,000 unit/gram topical powder Active ? Not available APPLY TO AFFECTED AREA TWICE A DAY prednisone 20 mg tablet Active ? Not avai lable TAKE 2 TABLETS BY MOUTH ONCE DAILY pregabalin 50 mg capsule Active ? Not fara ilable TAKE 2 CAPSULES BY MOUTH IN THE MORNING , 1 CAP AT NOON, AND 1 CAP IN THE EVENING. primidone 250 mg tablet Active ? Not avai lable TAKE 1 TABLET (250 MG) BY MOUTH AT BEDT JOSSUE FOR ADDITIONAL REFILLS, PLEASE SCHEDULE A FOLLOW-UP. primidone 50 mg tablet Active ? Not avail able TAKE 2 TABS IN THE MORNING AND 4 TABS IN THE EVENING simvastatin 20 mg tablet Active ? Not fara ilable TAKE 1 TABLET BY MOUTH AT BEDTIME tolterodine ER 4 mg capsule,extended release 24 hr Active ? Not available TAKE 1 CAPSULE BY MOUTH EVERY DAY Problems None recorded. Procedures Date Name Performed by ? ? Procedure on Wrist Information not avai lable ? Excision of Bilateral Breasts Informatio n not available ? Total Knee Replacement Information not a vailable Notes: 2x ? Total Hysterectomy Information not avai lable ? Colonoscopy Information not avai lable ? Cholecystectomy Information not avai lable ? Carpal Tunnel Surgery Information not av ailable ? Appendectomy Information not avai lable Results Lab Results Date Name Specimen Result Interpretation Description Value Range Status Address ? 08/14/2021 Urinalysis, Dipstick ? pH-Status 6.5 ? Nitrates-Status negative ? Blood-Status Negative ? Leuko-Status Negative ? Specimen Type Voided ? ? 08/14/2021 Urinalysis, Dipstick ? No observation ? ? ? recorded. Past Encounters 08/14/2021 Urgent Desire to Urinate; Overactive Jero ddTORITO RamirezC: [address] [facility] [place] [address], Ph. Social History Tobacco Smoking Status Never Smoker Vaccine List Vaccine Type COVID-19, mRNA, LNP-S, PF, 30 mcg/0.3 mL dose ([employer]uro[employer]rix[employer]) 04/16/2020 05/07/2020 11/30/2020 COVID-19, mRNA, LNP-S, PF, 30 mcg/0.3 mL dose, sridhar-sucrose ([employer]) 06/20/2021 pneumococcal conjugate PCV 13 04/07/2015 pneumococcal polysaccharide PPV23 12/01/2013 10/23/2017 Plan of Care Reminders Provider Appointments None recorded. ? ? Lab None recorded. ? ? Referral None recorded. ? ? Procedures None recorded. ? ? Surgeries None recorded. ? ? Imaging None recorded. ? ? Vitals Height Weight BMI 5 ft 5 in 274 lbs 45.6 kg/m2
--- OUTSIDE RECORDS SUMMARY | 2021-11-20 12:47 | XMS_ITS | Encounter Summary ---
:1945 Author Organization [facility] Address [address] [place] [address]. [place] [address] Care Team Providers Name Role Phone Unavailable Primary Care Provider Unavailable Reason for Visit Rehab Therapy Physical Therapy (Routine) - Closed Specialty Diagnoses / Procedures Referred By Contact Refer red To Contact Physical Therapy Diagnoses MEDICARE left sided disk herniations Andrew Branch Tee Pt Procedures POOL EVAL [address] [facility] [address] [place] [address] [place] [address] Phone: Referral ID Status Reason Start Date Expiration Date Visits Requ ested Visits Authorized [id number] Closed 07/09/2012 01/05/[phone] Encounter Details Date Type Department Care Team Description 07/09/2012 Hospital Encounter [facility] Surya Branch matthew [address] [place] [address] Rehabilitation Services Bindu Haas, PT [facility] [address] [address] [facility] [address] [place] [address] Social History Tobacco Use Types Packs/Day Years Used Date Never Assessed Sex Assigned at Date Recorded 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 encounter Progress Notes Bindu Haas, PT - 07/09/2012 4:30 PM CDT AQUATIC PHYSICAL THERAPY EXERCISE LOG (TRUNK) Date 07/09/12 Bindu Haas, PT Session 1 Warm Up Ambulation (Forward/Side/Back/April/All) 2 f,s,b with TRANSMISSION AND PROTECTION ENGINEER Stretching/ROM Chin Tucks CROM (Flex/Ext/SB/Rot/All) Shoulder (Shrugs/Rolls) Scapular (Retraction/Depression) Upper Trunk (Levator/Scalene/Upper Trapezius) Pec Stretch (Unilateral/Bilateral) Posterior Shoulder Gluteal 30 sec x 2 B Hamstring (On Step/Cuff) 30 sec x 2 B Calf (In Hole/At Wall) 30 sec x 2 B Quad Hip Flexor (Kneel) Piriformis (Seated/Stand) Trunk ROM (Flex/Ext/SB/Rot/All) BAD RAGAZ Strengthening Abdominal Sets/ Pelvic Tilt With exercises, educated in core activation Shoulder (Flex/Ext, Abd/Add, IR/ER, Circles) Horizon (Abd/Add, Diagonals) Rowing Arms UE PNF (D1/D2) Abdominal Sets (Push/Pull, side to side, push down with board) Squat Lunge Squat Hip (Flex/Ext, Abd/Add, single leg bike, circles, figure 8, All) Flex/ext x 10 at wall Heel/Toe Raises Step Ups (Forward, Lateral) Noodle Push Downs Stir the Pot/Punches with Dumbells Sit to Stand at Bench Aerobic Fast Walking Bike/Ski/Christopher/All Balance Narrow Base of Support Tandem Stand Single Leg Stance Heel/Toe Walking 3 Step and Stop Braiding Cool Down Ambulation [place] Dangle Bindu Haas, PT - 07/09/2012 11:35 AM CDT 07/09/12 0935 Quick Adds Type of Visit Initial OP PT Evaluation General Information Start of Care Date 07/09/[address] Andrew Branch Orders Evaluate and Treat as Indicated Additional Orders teach pool program for reconditioning Order Date 06/16/12 Medical Diagnosis L sided disk herniations L2-4, lumbar DDD, patellofemoral joint pain Precautions/Limitations fall precautions Special Instructions pool therapy 4-8 sessions Surgical/Medical history reviewed Yes (breast CA, seizure, HTN- meds for BP, chol, seizure) Pertinent history of current problem Pt presents with c/o back pain and knee pain. Pt has 3 discs inlow back that have DDD. L knee medial aspect is bone on bone. Pt reports back has been painful for last 2 years. The knee has been painful for several years prior to that. Pt has h/o breast cancer 3 years ago. Pt also has seizure disorder. On anti-seizure meds. Pt has not had a seizure for 2 years. She reports she does have some tremors in hands. Pt reports she has a difficult time getting up from recliner. Pt reports she is a fall risk and is supposed to use cane. Standing tolerance is limited to about 10 minutes. Pt can walk with a walker 15 minutes. Stairs in split entry home can be difficult. Pt denies any falls in last year. Pt has had land therapy and just finished in last 2 weeks. She continues to do HEP with theraband, has helped with strengthening. Pt reports she does some dishes but can't do laundry because of pain. Is able to sit and fold clothes. 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 No Per patient - Fall with injury in past year? No Is patient a fall risk? Yes Fall screen comments Pt at fall risk based on observation with walking speed and need for UE support. Balance will be addressed during this plan of care Pain Patient currently in pain Yes Pain location back Pain rating 5 Pain description comment back and L lateral thigh to knee. When walking increasing to 8-10/10 Additional pain locations? Pain location 2 Pain location 2 knee Pain rating 2 8 Cognitive Status Examination Orientation orientation to person, place and time Level of Consciousness alert Follows Commands and Answers Questions 100% of the time Personal Safety and Judgment intact Cognitive Comment Pt did need repetition at times for direction Posture Posture Forward head position Palpation Palpation pt denies palpation tenderness at back Range of Motion (ROM) ROM Comment trunk ROM limited by about 50% forward, 70% extension, 25% sidebending but also difficult due to impaired balance, pt reports some increase in painwith flex and ext Strength Strength Comments carmen 4/5 LE strength Bed Mobility Bed Mobility Comments not tested Transfer Skills Transfer Comments sit to stand with min A, extra effort required to stand from bench Gait Gait Comments pt ambulates on pool deck without AD, slow pace with very wide MONIKA, pt did slightly better with TRANSMISSION AND PROTECTION ENGINEER. Pt advised to bring 4WW for safety on pool deck next visit. Balance Balance Comments pt has difficulty static stand with WBOS, did not formally test more on wet pool deck. Sensory Examination Sensory Perception no deficits were identified Planned Therapy Interventions Planned Therapy Interventions (aquatic PT) Clinical Impression Criteria for Skilled Therapeutic Interventions Met yes, treatment indicated PT Diagnosis back and knee pain APTA Preferred Practice Pattern musculoskeletal Influenced by the following impairments back pain, knee pain, impaired gait and balance Functional limitations due to impairments fall risk, decreased activity tolerance Rehab Potential good, to achieve stated therapy goals Rehab potential affected by pt will not be seen until after August 11 when pool re-opens (closed due to cleaning and repairs) Therapy Frequency 2 times/Week Predicted Duration of Therapy Intervention (days/wks) 8 sessions Risk & Benefits of therapy have been explained Yes Patient, Family & other staff in agreement with plan of care Yes Clinical Impression Comments Pt presents with history of both back and knee pain. She will benefit from the partially unweighted environment of the pool to develop a program to build strength and flexibility and decrease pain. Pt is hoping to [facility] once she is independent with aquatic PT. 1x Eval Only-Outpatient/Observation Medicare G-Code G-code Mobility: Walking & Moving Around Mobility: Walking & Moving Around Mobility: Current Status G8978, Goal G8979, Discharge [id number] Only- Modifier the same for all G-codes CJ: 20-39% impairment Mobility: Current & Discharge Modifier Rationale-Eval Only clinical judgement related to pain and limitations in standing/walking Mobility Comments Pt needs UE support with mobility, at fall risk Education Assessment Barriers to Learning No barriers GOALS PT Eval Goals 1;2;3 Goal 1 Goal Identifier STG 1 Goal Description 1. Pt will be independent with HEP for [facility] Target Date 09/08/12 Goal 2 Goal Identifier STG 2 Goal Description 2. Pt will report decrease in back pain rated less than 5/10 and ability to stand greater than 10 minutes to perform cloud security architect such as dishes. Target Date 09/08/12 Goal 3 Goal Identifier STG 3 Goal Description 3. Pt will be able to demonstrate improved LE strength by report of increased ease with ascending and descending stairs in the home. Target Date 09/08/12 Total Evaluation Time Total Evaluation Time (Minutes) 33 documented in this encounter Plan of Treatment Upcoming Encounters Date Type Specialty Care Team Description 03/20/2022 Virtual Visit Neurology Birgit Whipple MD [address] [place] [address] (Wo rk) documented as of this encounter Visit Diagnoses Not on filedocumented in this encounter
--- OUTSIDE RECORDS SUMMARY | 2021-11-20 12:47 | XMS_ITS | Encounter Summary ---
:1945 Author Organization [facility] [facility] Address [address] [place] [address]. [place] [address] Care Team Providers Name Role Phone Unavailable Primary Care Provider Unavailable Reason for Visit Rehab Therapy Physical Therapy (Routine) - Closed Specialty Diagnoses / Procedures Referred By Contact Refer red To Contact Physical Therapy Diagnoses MEDICARE left sided disk herniations Andrew Branch Tee Pt Procedures POOL EVAL [address] [facility] [address] [place] [address] [place] [address] Phone: Referral ID Status Reason Start Date Expiration Date Visits Requ ested Visits Authorized [id number] Closed 07/09/2012 01/05/2013 365 365 Encounter Details Date Type Department Care Team Description 08/27/2012 Hospital Encounter [facility] Surya Branch matthew [address] [place] [address] Rehabilitation Services Bindu Haas, PT [facility] [address] [address] [place] [facility] [address] [place] [address] Social History Tobacco Use Types Packs/Day Years Used Date Never Assessed Sex Assigned at Date Recorded 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 Progress Notes Bindu Haas, PT - 08/27/2012 11:43 AM CDT AQUATIC PHYSICAL THERAPY EXERCISE LOG (TRUNK) Date 07/09/12 Bindu Haas, PT Session 1 08/15/12 Bindu Haas ,PT 08/20/12 Bindu Haas, PT 08/22/12 Bindu Haas, PT 08/27/12 Bindu Haas, PT Warm Up Ambulation (Forward/Side/Back/April/) 2 f,s,b with MEAT WASHER 2 f/s/b with MEAT WASHER 2 f/s/b no MEAT WASHER 2 f/s/b 2 f/s/b/m Stretching/ROM Chin Tucks CROM (Flex/Ext/SB/Rot/All) Shoulder (Shrugs/Rolls) [...] x2 B 30 sec x 2 B Quad Hip Flexor (Kneel) Piriformis (Seated/Stand) Trunk ROM (Flex/Ext/SB/Rot/All) BAD LUANNAZ Strengthening Abdominal Sets/ Pelvic Tilt With exercises, educated in core activation With exercises, reminders for core With exercises With exercises With exercises Shoulder (Flex/Ext, Abd/Add, IR/ER, Circles) Away from wall with no paddles, x 10 each Away from wall, open paddles x 10 Away from wall with open paddles x 12 Away from wall with open paddles x 12 Horizon (Abd/Add, Diagonals) X 10 X 10 X 12 X 12 Rowing Arms UE PNF (D1/D2) Abdominal Sets (Push/Pull, side to side, push down with board) Small x 10 each Small x 10 each Small x 10 each Small x 12 Squat Lunge Squat Hip (Flex/Ext, Abd/Add, single leg bike, circles, figure 8, All) Flex/ext x 10 at wall All except figure 8 x 10 at wall At wall, x 10 each except figure 8 At wall, x 15 each except figure 8 At wall x 15 except figure 8 Heel/Toe Raises x10 Step Ups (Forward, Lateral) Noodle Push Downs Stir the Pot/Punches with Dumbells X 10 Sit to Stand at Bench Aerobic Fast Walking Bike/Ski/Christopher/All Corner bike x 3 min, needed A to prevent floating of LE's up Corner x 3 min Corner x 4 min Balance Narrow Base of Support Tandem Stand Single Leg Stance Heel/Toe Walking 3 Step and Stop x5 Braiding Cool Down Ambulation 3 f with no UE support 2 f no UE support X 2f 2 f [place] Dangle documented in this encounter Plan of Treatment Upcoming Encounters Date Type Specialty Care Team Description 03/20/2022 Virtual Visit Neurology Birgit Whipple MD [address] [place] [address] (Wo rk) documented as of this encounter Visit Diagnoses Not on filedocumented in this encounter
--- OUTSIDE RECORDS SUMMARY | 2021-11-20 12:47 | XMS_ITS | Encounter Summary ---
:1945 Author Organization [place] Address [address] [place] [address]. 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 documented in this encounter Results UPPER GI ENDOSCOPY (05/31/2006 10:10 AM CDT) Component Value Ref Test Analysis Performed At [facility] Range Method Time Signature Upper GI Endoscopy RADIOLOGY Endoscopy RESULTS Patient Name: Kisha evans ? Gender: F ? Procedure Date: 05/31/2006 10: 10 AM ? Date of : 1945 ? Age: 60 ? Admit Type: Outpatient ? Attending MD: Navi Chairez ? Procedure: ?Upper GI endoscopy Indications: ?Dysphagia - recurrent. Providers: ?Navi Chairez MD Referring MD: ?? Binu Kong MD Medicines: ?Fentanyl 100 mcg IV, Midazolam 2 mg IV, Benzocaine spray Complications: ??No immediate complications Procedure: ?- A History and Physical has been perfo rmed, and patient ?medi cation allergies have been reviewed. The patient The ?risk s and benefits of the procedure and the sedation options ?and risks were discussed with the patient. All questions were ?answered and informed consent was obtained. Patient ?iden tification and proposed procedure were verified prior to ?the procedure by the physician in the procedure room. Mental ?Stat us Examination: normal. Respiratory Examination: clear to ?ausc ultation. CV Examination: normal. ASA Grade Assessment: ?P1 A normal healthy patient. After reviewing the risks and ?bene fits, the patient was deemed in satisfactory condition to ?undergo the procedure. T he anesthesia plan was to use ?moderate sedation / analgesia (con scious sedation). ?Imme diately prior to administration of medications, the ?harvey ent was re-assessed for adequacy to receive sedatives. ?The heart rate, respiratory rate, oxygen saturations, blood ?pres sure, adequacy of pulmonary ventilation, and response to ?care were monitored throughout the procedure. The physical ?stat us of the patient was re-assessed after the procedure. ?Afte r obtaining informed consent, the endoscope was passed ?unde r direct vision. Throughout the procedure, the patient's ?bloo d pressure, pulse, and oxygen saturations were monitored ?cont inuously. The [id number] was introduced through ?the mouth, and advanced to the second part of duodenum. The ?uppe r GI endoscopy was accomplished without difficulty. The ?patient tolerated the procedure well . ? Findings: ? The Z-line was regular and was found forty cm from the incisors. The ? cricopharyngeus, upper third of the esophagus, middle third of the ? esophagus and lower third of the esophagus were yvrose l. This was ? successfully dilated with a 16.5 mm esophageal balloo n dilator. The ? entire examined stomach and gastr oesophageal junction (on retroflexion) ? were normal. The duod enal bulb and 2nd part of the duodenum were normal. ? Impression: ? - Z-line regular, forty cm from the inciso rs. ?- No rmal cricopharyngeus, upper third of the esophagus, ?middle third of the esophagus and lower third of the ?esophagus. ?- Normal stomach. ?- Normal duodenal bulb and 2nd part of the duodenum. Recommendation: - Discharge patient to home (ambulatory). ?- Continue present medicines. ?- Yvan mathews should telephone endoscopist in 1 week - progress ?report. ?- Return to primary care provider CT N. ? R Mihaela Gutierrez Navi Chairez MD Signed Date: 05/31/2006 10:45 AM Number of Addenda: 0 I was physically present for the entire viewing portion of t he exam. Note generated on 05/31/2006 10:10 AM Upper GI RADIOLOGY Endoscopy RESULTS Specimen (Source) Anatomical Collection Method Collection Time Re ceived Time Location / / Volume Laterality 05/31/2006 10:10 AM CDT Binu Kong MD PROCEDURES Performing Organization Address City/State/ZIP Code Phon e Number RADIOLOGY RESULTS documented in this encounter Visit Diagnoses Not on filedocumented in this encounter
--- OUTSIDE RECORDS SUMMARY | 2021-11-20 12:47 | XMS_ITS | Clinical Summary ---
:1945 Author Organization [facility] [place] [address] Care Team Providers Name Role Phone Chele Mena MD Primary Care Provider Mae Cheng AuD Unavailable Allergies Active Allergy Reactions Severity Noted Date Comments Bee Pollen Edema Medium 12/19/2009 Ceftriaxone Rash Medium 04/11/2018 Lacosamide Confusion, Other - Describe In Comment Field Oxcarbazepine Rash, Hives High 12/27/2009 Medications Medication Sig Dispensed Refills Start Date End Date Status simvastatin (ZOCOR) Take 20 mg by mouth 0 Active 20 mg tablet at bedtime. primidone (MYSOLINE) Take 250 mg by 0 04/07/2014 Active 250 mg tablet mouth at bedtime. divalproex (DEPAKOTE Take 3 tablets by 60 tablet 0 04/23/2015 Active ER) 250 mg mouth 2 times Extended-Release daily. tabletIndications: Partial epilepsy with intractable epilepsy (HC) Ghwiu-8-FHC-EPA-Fish Take 1,000 mg by 0 Active Oil (FISH OIL) 1,000 mouth once daily. mg (120 mg-180 mg) cap cholecalciferol Take 1,000 Units by 0 Active (VITAMIN D) 1,000 mouth once daily. unit tablet nystatin powder Apply 1 Strip 0 Active (MYCOSTATIN) powder topically to affected area(s) 2 times daily. aspirin (ECOTRIN) 81 Take 81 mg by mouth 0 Active mg enteric coated once daily with a tablet meal. acetaminophen Take 325 mg by 0 A ctive (TYLENOL) 325 mg mouth every 4 hours tablet if needed. Max acetaminophen dose: 4000mg in 24 hrs. metoprolol tartrate Take 50 mg by mouth 1 03/10/2018 Active (LOPRESSOR) 50 mg 2 times daily. tablet multivitamin-minerals Take 1 tablet by 0 Active therapeutic tablet mouth once daily. diphenhydrAMINE Take 1 tablet by 0 04/11/2018 Active (BENADRYL) 25 mg mouth every 6 hours tabletIndications: if needed for Itching Itching or Other (Specify) (allergy symptoms). lisinopril (PRINIVIL; Take 0.5 tablets by 0 04/11/19 19 Active ZESTRIL) 20 mg mouth once daily. tabletIndications: Hypertension, unspecified type LANTUS SOLOSTAR U-100 Inject 8 Units 1 box 0 04/11/2018 Active INSULIN 100 unit/mL subcutaneous before (3 mL) bedtime. Product penIndications: Type desired:BASAGLAR 2 diabetes mellitus without complication, with long-term current use of insulin (HC) camphor-menthol, Apply topically to 1 Bottle 0 04/11/2018 Active 0.5%-0.5%, (SARNA affected area(s) 3 ANTI-ITCH) times daily if lotionIndications: needed. Itching pregabalin (LYRICA) Take 1 capsule by 10 capsule 0 04/11/2018 Active 50 mg mouth 2 times capsuleIndications: daily. At 1800 & Neuropathy 2200 pregabalin (LYRICA) Take 2 capsules by 5 capsule 0 04/11/2018 Active 50 mg mouth once daily. capsuleIndications: morning Neuropathy meloxicam (MOBIC) 7.5 TAKE 1 TABLET BY 30 tablet 0 06/23/2019 Active mg tabletIndications: MOUTH ONCE DAILY Lumbar facet NEEDED FOR MORE arthropathy SIGNIFICANT PAIN. tolterodine (DETROL TAKE 1 CAPSULE BY 90 Capsule 0 06/08/2021 Active LA) 4 mg MOUTH EVERY DAY Extended-Release capsuleIndications: Urinary urgency Active Problems Problem Noted Date Paroxysmal atrial fibrillation 04/05/2018 Infection of breast implant 04/04/2018 C. difficile colitis 04/04/2018 Morbid obesity 04/04/2018 Hypomagnesemia 04/04/2018 Septic shock 04/02/2018 Breast implant capsular contracture 02/12/2018 Complex renal cyst 03/11/2017 Diabetes mellitus type 2, uncontrolled 04/20/2015 Knee osteoarthritis 01/28/2013 Sensorineural hearing loss, bilateral 12/23/2012 Left Sided Disk Herniations L2-3 and L3-4 05/02/2012 Lumbar facet arthropathy 05/02/2012 DDD (degenerative disc disease), lumbar 05/02/2012 History of breast cancer in female 01/02/2012 Acquired absence of breast and nipple 08/28/2011 PARTIAL EPILEPSY NEC INTRACTABLE 12/19/2009 Breast cancer, stage 3 12/19/2009 Overview: S/P double mastectomy. First chemotherap y 12/13/09 HTN (hypertension) 12/19/2009 Pure hypercholesterolemia 12/19/2009 GERD (gastroesophageal reflux disease) 12/19/2009 Resolved Problems Problem Noted Date Resolved Date Sepsis 04/20/2015 04/04/2018 DM2 (diabetes mellitus, type 2) 04/20/2015 04/04/19 19 Personal history of malignant neoplasm of breast 01/29/2011 05/02/2012 Confusion state 01/30/2010 05/02/2012 Anemia, unspecified 01/26/2010 05/02/2012 ENCEPHALOPATHY METABOLIC 01/10/2010 05/02/2012 Serum ammonia increased due to depakote 01/10/2010 05/02/2012 Hyperammonemia 01/07/2010 05/02/2012 Hyponatremia 01/03/2010 05/02/2012 Overview: Thought due to antiseizure meds Drug rash 01/03/2010 05/02/2012 Delirium 12/24/2009 05/02/2012 Immunizations Name Administration Dates Next Due AMB INFLUENZA, IIV4 (AGE=>6MOS) MDV 11/09/2015, 12/09/2014, 11/09/2013, (Flu Clinic Only) 11/21/2012, 11/21/2012 COVID-19 vaccine (Boqii 05/07/2020, 04/16/2020 30mcg/0.3mL) PF, MDV Influenza A (H1N1), Inactivated (Age 0911/17/2009 >=3 Years) Influenza Virus, Unspecified 01/25/2018 Influenza, High-dose Inactivated 11/14/2018, 12/09/2017, Influenza, IIV3 (Age 6-35 mos) 11/21/2012 Influenza, IIV4 11/09/2015 Pneumococcal Poly,23-Valent 10/23/2017, 12/01/2013, 09/09/19 10, (Pneumovax) 03/11/2009 Pneumococcal conj 13-Valent (Prevnar 04/07/2015 13) Td (Age >=7 Years) 12/05/2018 Td, Preservative Free (age >= 7 11/21/2012 Years) Tdap 11/21/2012 Tetanus/Diptheria 11/21/2012 Zoster (Shingrix-RZV, recombinant) 11/13/2018, 08/07/2018, 0 10/23/2017 Zoster (Zostavax-ZVL, live) 12/09/2012 Family History Medical History Relation Name Comments Other Father at 51yo of [place]. Cancer-breast Maternal Aunt mothers twin dx age 45? Cancer-breast Maternal Grandmother dx age 40 Other Mother at 90yo. H/ O CVA Cancer-breast Sister dx age 56 Cancer-colon No Family History Cancer-ovarian No Family History Cancer-prostate No Family History Relation Name Status Comments Father Maternal Aunt Maternal Grandmother Mother Sister Social History Tobacco Use Types Packs/Day Years Used Date Never Smoker Smokeless Tobacco: Never Used Tobacco Cessation: Counseling Given: Yes Alcohol Use Standard Drinks/Week Comments Not Currently 0 (1 standard drink = 0.6 oz pure alcoho l) rare Sex Assigned at Date Recorded Not on file Obstetrics History Last Filed Vital Signs Vital Sign Reading Time Taken Comments Blood Pressure 153/85 03/09/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 Pulse 78 03/09/2021 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 Temperature 36.7 ??C (98 ??F) 03/09/2021 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 Respiratory Rate 20 05/09/2020 9:51 AM CDT Oxygen Saturation 97% 03/09/2021 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 Inhaled Oxygen Concentration - - Weight 125.5 kg (276 lb 9.6 oz) 03/09/2021 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 Height 162.6 cm (5' 4) 04/02/2018 10:19 AM AUTOMOTIVE BRAKE ADJUSTER Body Mass Index 47.48 04/02/2018 10:19 AM AUTOMOTIVE BRAKE ADJUSTER Plan of Treatment Health Maintenance Due Date Last Done Comments Depression screening for age 12+ 1957 BMI (ht and wt on same day) for 09/01/1963 age 18+ Hepatitis C screening for age 0709[birth year]01/1963 18-79 DEXA/DXA scan for age 65+ 2010 Medicare Wellness for age 65+ 2010 COVID-19 vaccine series (4 - 04/02/2021 11/30/2020, 021, Booster for Pfizer series) 04/16/2020 Influenza for age 65+ 10/26/2021 11/14/2018, 01/25/2018, 12/09/2017, Additional history exists Tetanus booster 12/05/2028 12/05/2018, 11/21/2012, 11/21/2012 Tdap Completed 11/21/2012 Pneumococcal series for age 65+ Completed 10/23/2017, 03/28, 12/01/2013, Additional history exists Zoster (shingles) series for age Completed 11/13/2018, , 50+ 10/23/2017, Additional history exists Medical Devices Implanted Type Area Car Scrubber Device Shelf Model / Identifier Expiration Serial / Date Lot [id number] Left: [employer] - 10/13/2014 [id number] / Implanted: Qty: 1 on 01/29/2011 at [facility] Breast Inamed [id number] / Explanted: at [facility] (Quantity not on file) Description: TISSUE POOL INSTALLER Implnt Mammary 700cc - [id number] Left: Breast J And J Men tor [id number] / Implanted: Qty: 1 on 08/28/2011 at [facility] Offerpop [id number] / Explanted: at [facility] (Quantity not on file) [id number] 600cc Memorygel Rnd High Smooth Silcn Left: Breast J And J [place] 10/11/2021 [id number] / Implanted: Qty: 1 on 02/12/2018 by Arin Joshi MD at [facility] Offerpop [id number] / Explanted: at [facility] (Quantity not on file) [id number] Results Not on filefrom Last 3 Months Additional Health Concerns Infection Onset Date Last Indicated CLOSTRIDIUM DIFFICILE 04/03/2018 04/03/2018 Insurance Payer Benefit Plan / Subscriber ID Effective Dates Phone Addre ss Type Group MEDICARE PART B MEDICARE PART [id number] 2013-Presen ATTN: CLAIMS - HB USE ONLY B HB ONLY t [address] [place] [address] MEDICARE PART A MEDICARE PART [id number] 2010-Presen ATTN: CLAIMS - HB USE ONLY A HB ONLY t [address] [place] [address] MEDICARE - PB MEDICARE PB [id number] 2018-Presen ATTN : CLAIMS USE ONLY ONLY t [address] [place] [address] MEDICA MEDICA SELECT [id number] 2018-Presen [address] [address] [place] [address] MEDICARE PPS HC MEDICARE [id number] 2010-Presen [address] [place] [address] NicholKisha Personal/Famil Self 1945 [phone] (Home) [place] [address] Advance Directives Documents on File Type Date Recorded Patient Consulting Intern Explanati on Healthcare Directive 01/29/2011 09/20/10 Latest Code Status on File Code Status Date Activated Date Inactivated Comments Full Code 04/02/2018 10:36 AM 04/11/2018 2:05 PM Code Status Discussion: Discussed Full Code 02/12/2018 8:43 AM 02/13/2018 2:34 AM Full Code 07/29/2017 11:18 AM 08/02/2017 1:28 AM Full Code 04/20/2015 2:07 AM 04/23/2015 6:38 PM Full Code 01/02/2012 11:39 AM 01/02/2012 1:55 PM Care Teams Dust Mixer Relationship Specialty Start Date End Date Chele Mena MD PCP - General 11/24/[address] [place], [place] [id number] Mae Cheng AuD Audiology 11/24/12
--- OUTSIDE RECORDS SUMMARY | 2021-11-20 12:47 | XMS_ITS | Encounter Summary ---
:1945 Author Organization [facility] Address [address] [place] [address]. [place] [address] Care Team Providers Name Role Phone Unavailable Primary Care Provider Unavailable Reason for Visit Rehab Therapy Physical Therapy (Routine) - Closed Specialty Diagnoses / Procedures Referred By Contact Refer red To Contact Physical Therapy Diagnoses MEDICARE left sided disk herniations Andrew Branch Tee Pt Procedures POOL EVAL [address] [facility] [address] [place] [address] [place] [address] Phone: Referral ID Status Reason Start Date Expiration Date Visits Requ ested Visits Authorized [id number] Closed 07/09/2012 01/05/2013 365 365 Encounter Details Date Type Department Care Team Description 08/20/2012 Hospital Encounter [facility] Surya Branch matthew [address] [place] [address] Rehabilitation Services Bindu Haas, PT [facility] [address] [address] [place] [facility] [address] [place] [address] Social History Tobacco Use Types Packs/Day Years Used Date Never Assessed Sex Assigned at Date Recorded 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 Progress Notes Bindu Haas, PT - 08/20/2012 12:43 PM CDT AQUATIC PHYSICAL THERAPY EXERCISE LOG (TRUNK) Date 07/09/12 Bindu Haas, PT Session 1 08/15/12 Bindu Haas ,PT 08/20/12 Bindu Haas, PT Warm Up Ambulation (Forward/Side/Back/April/) 2 f,s,b with APPRENTICE LINEMAN THIRD STEP 2 f/s/b with APPRENTICE LINEMAN THIRD STEP 2 f/s/b no APPRENTICE LINEMAN THIRD STEP Stretching/ROM Chin Tucks CROM (Flex/Ext/SB/Rot/All) Shoulder (Shrugs/Rolls) Scapular (Retraction/Depression) Upper Trunk (Levator/Scalene/Upper Trapezius) Pec Stretch (Unilateral/Bilateral) Posterior Shoulder Gluteal 30 sec x 2 B 30 sec x 2 B 30 sec X 2 B Hamstring (On Step/Cuff) 30 sec x 2 B 30 sec x 2 B 30 sec x 2 B Calf (In Hole/At Wall) 30 sec x 2 B 30 sec x 2 B 30 sec X 2 B Quad Hip Flexor (Kneel) Piriformis (Seated/Stand) Trunk ROM (Flex/Ext/SB/Rot/All) BAD RAGAZ Strengthening Abdominal Sets/ Pelvic Tilt With exercises, educated in core activation With exercises, reminders for core With exercises Shoulder (Flex/Ext, Abd/Add, IR/ER, Circles) Away from wall with no paddles, x 10 each Away from wall, open paddles x 10 Horizon (Abd/Add, Diagonals) X 10 X 10 Rowing Arms UE PNF (D1/D2) Abdominal Sets (Push/Pull, side to side, push down with board) Small x 10 each Small x 10 each Squat Lunge Squat Hip (Flex/Ext, Abd/Add, single leg bike, circles, figure 8, All) Flex/ext x 10 at wall All except figure 8 x 10 at wall At wall, x 10 each except figure 8 Heel/Toe Raises Step Ups (Forward, Lateral) Noodle Push Downs Stir the Pot/Punches with Dumbells Sit to Stand at Bench Aerobic Fast Walking Bike/Ski/Christopher/All Corner bike x 3 min, needed A to prevent floating of LE's up Balance Narrow Base of Support Tandem Stand Single Leg Stance Heel/Toe Walking 3 Step and Stop Braiding Cool Down Ambulation 3 f with no UE support 2 f no UE support [place] Dangle documented in this encounter Plan of Treatment Upcoming Encounters Date Type Specialty Care Team Description 03/20/2022 Virtual Visit Neurology Birgit Whipple MD [place], [place] [address] (Wo rk) documented as of this encounter Visit Diagnoses Not on filedocumented in this encounter
--- NOTE | 2021-11-20 14:41 | W.ANESCHARGE ---
Anesthesia Charges Start Date/Time Anesthesia Start Date: 11/20/21 Anesthesia Start Time: 13:12 Stop Date/Time Anesthesia Stop Date: 11/20/21 Anesthesia Stop Time: 14:36 Summary Emergency: No Extremes of Age: Over 70-CPT [id number]
--- NOTE | 2021-11-20 14:44 | W.ANESCHARGE ---
Anesthesia Charges Start Date/Time Anesthesia Start Date: 11/20/21 Anesthesia Start Time: 13:12 Stop Date/Time Anesthesia Stop Date: 11/20/21 Anesthesia Stop Time: 14:36 Summary Emergency: No Extremes of Age: Over 70-CPT [id number]
== END 2021-11-20 12:43 | disposition home or self-care (01) ==
LOC: OP CLINIC 12:42
PROVIDERS: PCP Internal Medicine; Visit Provider Surgery
DX: Z86.010 Personal history of colon polyps (principal); K63.5 Polyp of colon; K57.30 Diverticulosis of large intestine without perforation or abscess without bleeding
CPT/HCPCS: 00811; 45385; 88305; 99100; J2704

== ENCOUNTER 2022-01-02 13:23 | Outpatient (CLI) | payer MEDICARE, OTHER, SELFPAY ==
--- OUTSIDE RECORDS SUMMARY | 2022-01-02 08:37 | XMS_ITS | Encounter Summary ---
:1945 Author Organization [facility] Address [address] [place] [address] Care Team Providers Name Role Phone Andrew Garvey MD Primary Care Provider Encounter Details Date Type Department Care Team Description 03/13/2021 Notes/Orders [place] [facility] Andrew Garvey Contact w [facility] MD Mitch (suspected) exposure 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 encounter Plan of Treatment Not on filedocumented as of this encounter Results (ABNORMAL) Symptomatic - 2019 Novel Coronavirus (COVID-19) (03/13/2021 9:18 AM NATIONAL ACCOUNTS RECRUITER) [facility] Method Time Signature COVID-19 Detected Not 03/14/2021 [facility] Interpret[facility] (A) Detected 12:59 AM CENTRAL LAB NATIONAL ACCOUNTS RECRUITER Source Nares, left 03/14/2021 [facility] and right 12:59 AM CENTRAL LAB NATIONAL ACCOUNTS RECRUITER Specimen Anatomical Collection Method Collection Time Receive d Time (Source) Location / / Volume Laterality Swab (Source ENTIRE ANTERIOR Non-blood 03/13/2021 9:18 AM 2021 4:33 Required) NARIS / Unknown Collection / NATIONAL ACCOUNTS RECRUITER PM NATIONAL ACCOUNTS RECRUITER Unknown Narrative [facility] CENTRAL LAB - 03/14/2021 12:59 AM NATIONAL ACCOUNTS RECRUITER Tested by Polymerase Chain Reaction (PCR ), Shanker Out-mediated amplification (TMA), or another nucleic acid amplifica tion test (NAAT). Andrew Garvey MD LAB_1 Performing Organization Address City/State/ZIP Code Phon e Number [facility] [address] [address] documented in this encounter Visit Diagnoses Diagnosis Contact with and (suspected) exposure to covid-19 documented in this encounter Care Teams Nurse Transplant Relationship Specialty Start Date End Date Andrew Garvey MD PCP - General 10/05/[address] [place] [address] documented as of this encounter
--- OUTSIDE RECORDS SUMMARY | 2022-01-02 08:37 | XMS_ITS | Clinical Summary ---
:1945 Author Organization [facility] [facility] Address [address] [place] [address] Care Team Providers Name Role Phone Andrew [...] for each transition of care or referral. 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
--- OUTSIDE RECORDS SUMMARY | 2022-01-02 08:37 | XMS_ITS | Encounter Summary ---
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 documented in this encounter Results (ABNORMAL) Symptomatic - 2019 Novel Coronavirus (COVID-19) (03/13/2021 9:18 AM DRYWALL PROFESSIONAL) [facility] Method Time Signature COVID-19 Detected Not 03/14/2021 [email or web address] Interpretation (A) Detected 12:59 AM CENTRAL LAB DRYWALL PROFESSIONAL Source Nares, left 03/14/2021 [facility] and right 12:59 AM CENTRAL LAB DRYWALL PROFESSIONAL Specimen Anatomical Collection Method Collection Time Receive d Time (Source) Location / / Volume Laterality Swab (Source ENTIRE ANTERIOR Non-blood 03/13/2021 9:18 AM 2021 4:33 Required) NARIS / Unknown Collection / DRYWALL PROFESSIONAL PM DRYWALL PROFESSIONAL Unknown Narrative [facility] - 03/14/2021 12:59 AM DRYWALL PROFESSIONAL Tested by Polymerase Chain Reaction (PCR ), Trust Clerk-mediated amplification (TMA), or another nucleic acid amplifica tion test (NAAT). Andrew Garvey MD LAB_1 Performing Organization Address City/State/ZIP Code Phon e Number [facility] [address] [place] [address] [phone] documented in this encounter Visit Diagnoses Diagnosis Contact with and (suspected) exposure to covid-19 documented in this encounter Additional Health Concerns Infection Onset Date Last Indicated Resolved Time R/O COVID19 03/13/2021 03/13/2021 03/14/2021 12:59 AM DRYWALL PROFESSIONAL documented as of this encounter Care Teams Therapeutic Sales Specialist Relationship Specialty Start Date End Date Andrew Garvey MD PCP - General 10/05/[address] [place] [address] documented as of this encounter
--- OUTSIDE RECORDS SUMMARY | 2022-01-02 08:38 | XMS_ITS | Encounter Summary ---
:1945 Author Organization [facility] Address [address] [place] [address]. [place] [address] Care Team Providers Name Role Phone Chele Mena MD Primary Care Provider Birgit Whipple MD Unavailable Dragan Ritter MD Unavailable Birgit Whipple MD Unavailable Reason for Visit Reason Comments Medication Refill PREGABALIN 50 MG CAPSULE Encounter Details Date Type Department Care Team Description 11/30/2020 Refill [facility] Sarabjit, Medication Refill [address] (PREGABALIN 50 MG [address] [place]) [place] [address] [phone] (Wo rk) Social History Tobacco Use Types Packs/Day Years Used Date Smoking Tobacco: Never Smokeless Tobacco: Never Alcohol Use Standard Drinks/Week Comments No 0 (1 standard drink = 0.6 oz pure alcoho l) Sex Assigned at Date Recorded Female 04/04/2021 11:57 AM 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 documented as of this encounter Miscellaneous Notes [...] Drug not on the [facility], P or [facility] refill protocol or controlled substance Shayna Bullard RN Central Triage Red Flags/Med Refills documented in this encounter Plan of Treatment Upcoming Encounters Date Type Specialty Care Team Description 03/20/2022 Virtual Visit Neurology Birgit Whipple MD [address] [place] [address] [phone] (Wo rk) documented as of this encounter Visit Diagnoses Diagnosis 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 (H) documented in this encounter Care Teams Occup Therapist Relationship Specialty Start Date End Date Chele Mena PCP - General Internal Medicine 11/28/12 MD Hakan [facility] [address] [place] [address] Birgit Whipple MD Neurology 06/16/14 Dragan Ritter MD Urology 06/10/17 [facility] [address] [place] [id number] [address] Birgit Whipple Assigned Neuroscience 04/03/20 MD Provider [address] [place] [address] [phone] documented as of this encounter
--- OUTSIDE RECORDS SUMMARY | 2022-01-02 08:38 | XMS_ITS | Encounter Summary ---
:1945 Author Organization [facility] Address [address] [place] [address]. [place] [address] Care Team Providers Name Role Phone Chele Mena MD Primary Care Provider [phone] Birgit Whipple MD Unavailable Dragan Ritter MD Unavailable Birgit Whipple MD Unavailable Reason for Visit Reason Comments Medication Refill PREGABALIN 50 MG CAPSULE Encounter Details Date Type Department Care Team Description 11/08/2021 Refill [facility] Sarabjit, Medication Refill [address] (PREGABALIN 50 MG [address] [place]) [place] [phone] (Wo rk) Social History Tobacco Use Types Packs/Day Years Used Date Smoking Tobacco: Never Smokeless Tobacco: Never Alcohol Use Standard Drinks/Week Comments No 0 (1 standard drink = 0.6 oz pure alcoho l) Sex Assigned at Date Recorded Female 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 documented as of this encounter Miscellaneous Notes [...] 03/20/2022 Virtual Visit Neurology Birgit Whipple MD [address] [place] [address] [phone] (Wo rk) documented as of this encounter Visit Diagnoses Diagnosis 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 (H) documented in this encounter Care Teams Physical Scientist Relationship Specialty Start Date End Date Chele Mena PCP - General Internal Medicine 11/28/12 MD Hakan [facility] [address] [place] [address] Birgit Whipple MD Neurology 06/16/14 Dragan Ritter MD Urology 06/10/17 [facility] [address] [place] [address] Birgit Whipple Assigned Neuroscience 04/03/20 MD Provider [address] [place] [address] [phone] documented as of this encounter
--- OUTSIDE RECORDS SUMMARY | 2022-01-02 08:38 | XMS_ITS | Encounter Summary ---
:1945 Author Organization [facility] Address [address] [place] [address]. [place] [address] Care Team Providers Name Role Phone Chele Mena MD Primary Care Provider [phone] Birgit Whipple MD Unavailable Dragan Ritter MD Unavailable Birgit Whipple MD Unavailable Encounter Details Date Type Department Care Team Description 04/13/2021 Orders Only [facility] Birgit Whipple, [address]ana MD [address] [place], [place] [phone] [place], [place] [phone] (Wo rk) Social History Tobacco Use Types Packs/Day Years Used Date Smoking Tobacco: Never Smokeless Tobacco: Never Alcohol Use Standard Drinks/Week Comments No 0 (1 standard drink = 0.6 oz pure alcoho l) Sex Assigned at Date Recorded Female 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 documented as of this encounter Plan of Treatment Upcoming Encounters Date Type Specialty Care Team Description 03/20/2022 Virtual Visit Neurology Birgit Whipple MD [address] [place], [place] [address] (Wo rk) documented as of this encounter Visit Diagnoses Not on filedocumented in this encounter Care Teams Geophysical Party Chief Relationship Specialty Start Date End Date Chele Mena PCP - General Internal Medicine 11/28/12 MD Hakan [facility] [address] [place] [address] Birgit Whipple MD Neurology 06/16/14 Dragan Ritter MD Urology 06/10/17 [facility] [address] [place] [address] [phone] Birgit Whipple, Assigned Neuroscience 04/03/20 MD Provider [address] [place] [address] [phone] documented as of this encounter
--- OUTSIDE RECORDS SUMMARY | 2022-01-02 08:38 | XMS_ITS | Encounter Summary ---
:1945 Author Organization [facility] Address [address] [place] [address] Care Team Providers Name Role Phone Andrew Garvey MD Primary Care Provider Reason for Visit Reason Onset Date Comments Travel Consult 01/25/2021 Encounter Details Date Type Department Care Team Description 01/25/2021 Office Visit [facility] [address] for counseling for travel (Primary Dx); Travel Clinic S, RN Encounter for immunization; [address] [facility] Encounter for screening for [place] 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 citizens and Legal Permanent Residents) to present anegative COVID-19 test, taken within three calendar days of departure, or proof of recovery from thevirus within the last 90 days. Airlines must confirm the negative test result or proof of recent recovery for all passengers prior to boarding. Airlines must deny boarding of passengers who do not provide documentation of a negative test or recovery. The CDC is recommending that international travelers get tested 3-5 days after travel and stay home for 7 days. If the test is negative, the traveler should stay home for the full 7 days. If a travelerdoes not get tested, it???s safest to stay home for 14 days. These new recommendations are importantsteps in controlling the spread of COVID-19. .What is STEP? The Smart Traveler Enrollment Program (STEP) is a free service to allow U.[place] citizens and nationals traveling abroad to enroll their trip with the nearest [place] Embassy or Consulate. Benefits of Enrolling in STEP Receive important information from the Embassy about safety conditions in your destination country, helping you make informed decisions about your travel plans. Help the U.S. Embassy contact you in an emergency, whether natural disaster, civil unrest, or familyemergency. Help family and friends get in touch with you in an emergency. https://travel.state.gov/content/travel/en/international-travel/oxgtwj-eel-rg/st ep.html OSIVE ORDNANCE TECHNICIAN documented in this encounter Progress Notes Shraddha Cruz RN - 01/25/2021 10:30 AM CST Subjective: Kisha Gandara is a 75 y.o. female who presents to the clinic for travel consultation accompanied by spouse,. TRAVEL PLANS Planned departure date: February 08, 2021 Time in developing countries: 3 weeks. Countries of travel: [place] Areas in country: urban Traveling to Malarial area:No Reviewed Malarial risk map: yes Traveling to Yellow Fever area: yes, lower risk in the urban area but not a zero risk. Discussed increased chance for adverse reaction to YF due to age and general physical status, she has outside med records. Hx of seizures. Med list up to date. Discussed waiver and using very careful insect precautions. Accommodations: hotel and private home Purpose of travel: visiting friends and relatives (VFR), pleasure and son lives there , they hope tovisit son's family there. PRIOR HEALTH HISTORY Currently ill / Fever: No Currently taking antibiotics: No Taking over 20mg of steroids daily: No Immunocompromised or history of cancer: No History of liver or kidney disease: No History of anxiety or depression: Unknown History of cardiac arrhythmia or rhythm conduction abnormalities (QT prolongation): No History of GERD/IBS: No History of Glaucoma: No Other relevant travel health history: Yes - Ambulatory with aide of wheeled walker and spouse on standby. There is no problem list on file for this patient. Allergies Allergen Reactions ??? Oxcarbazepine Hives and Rash ??? Bee Venom Other, see comments ??? Lacosamide Other, see comments Outpatient Medications Prior to Visit Medication Sig Dispense Refill ??? ACCU-CHEK GUIDE test strip ??? ACCU-CHEK SOFTCLIX lancets ??? acetaminophen (ACETAMINOPHEN 8 HOUR) 650 MG controlled release tablet ??? aspirin EC (ASPIR-LOW) 81 MG enteric coated tablet ??? CALCIUM CARBONATE-VITAMIN D OR ??? divalproex (DEPAKOTE ER) 250 MG 24 hour release tablet ??? HYDROcodone-acetaminophen (NORCO) 5-325 MG tablet ??? insulin glargine (BASAGLAR) 100 UNIT/ML KWIKPEN ??? insulin glargine (LANTUS) 100 UNIT/ML injection ??? lisinopril (ZESTRIL) 10 MG tablet ??? metoprolol tartrate (LOPRESSOR) 50 MG tablet ??? multivitamin (THERAGRAN) tablet Take 1 Tablet by mouth daily. ??? nystatin (MYCOSTATIN) 668860 UNIT/GM powder ??? omega-3 fatty acids (FISH OIL) 1000 MG capsule Take 2 g by mouth daily. ??? pregabalin (LYRICA) 50 MG capsule ??? primidone (MYSOLINE) 250 MG tablet ??? simvastatin (ZOCOR) 20 MG tablet ??? tolterodine (DETROLLA) 4 MG 24 hour release capsule No facility-administered medications prior to visit. Assessment: Allergies, problem list, immunization history and medications reviewed as they pertain to potential contraindications for travel medications and vaccines according to travel standing orders, as applicable. There were no vitals filed for this visit. Contraindications to travel: No, will be an increased challenge during the covid pandemic. They are vaccinated. She does have risk factors for disease. PATIENT EDUCATION Patient was given verbal and/or written information about: Chikungunya, Cholera, COVID, Dengue Fever, Diphtheria/Tetanus, Filarial, Hepatitis A, Hepatitis B, HIV, Influenza, Malaria, MMR, Rabies--post-exposure schedule, Travax/CDC information, Traveler's Diarrhea and use of Pepto Bismol and Imodium (follow package insert), Typhoid, Yellow Fever, Zika Reviewed vaccine schedule and efficacy. Patient appears to understand all the information provided. Immunization counseling was provided for the vaccines that were administered at the visit. Immunization Reaction: Patient had no reaction. Patient declined: Hepatitis B #1, Plan: 1. Encounter for counseling for travel - HEP A ADULT (19+ YRS) - TYPHOID (TYPHIM , IM) - 2019 Novel Coronavirus (COVID-19); Future 2. Encounter for immunization - HEP A ADULT (19+ YRS) - TYPHOID (TYPHIM , IM) 3. Encounter for screening for COVID-19 - 2019 Novel Coronavirus (COVID-19); Future Other Travel Needs: YF Contraindication Letter FOLLOW UP Lab result preference: Patient prefers lab result to be release to EMR. Return to clinic: For Hepatitis A #2 vaccine in 6 months. Time spent on travel education Individual counselin minutes. OSIVE ORDNANCE TECHNICIAN documented in this encounter Plan of Treatment Not on filedocumented as of this encounter Results 2019 Novel Coronavirus (COVID-19) (02/06/2021 9:42 AM EXPLOSIVE ORDNANCE TECHNICIAN) [facility] Method Time Signature COVID-19 Not Not 02/06/2021 [facility] Interpretation Detected Detected 6:46 PM CENTRAL LAB EXPLOSIVE ORDNANCE TECHNICIAN Source Nares, left 02/06/2021 [facility] and right 6:46 PM CENTRAL LAB EXPLOSIVE ORDNANCE TECHNICIAN Specimen Anatomical Collection Method Collection Time Receive d Time (Source) Location / / Volume Laterality Swab (Source ENTIRE ANTERIOR Non-blood 02/06/2021 9:42 AM 2020 9:42 Required) NARIS / Unknown Collection / EXPLOSIVE ORDNANCE TECHNICIAN AM EXPLOSIVE ORDNANCE TECHNICIAN Unknown Narrative [facility] CENTRAL LAB - 02/06/2021 6:46 PM EXPLOSIVE ORDNANCE TECHNICIAN Test performed by real-time PCR. This te st has been authorized by the FDA under an Emergency Use Authorization (EUA) for us e by authorized laboratories. Dejah Segal APRN, [employer] LAB_1 Performing Organization Address City/State/ZIP Code Phon e Number [facility] [address] [place] [phone] documented in this encounter Visit Diagnoses Diagnosis Encounter for counseling for travel - Pr imary Encounter for immunization Need for other specified prophylactic va ccination against single bacterial disease Encounter for screening for COVID-19 documented in this encounter Care Teams Insert Molding Operator Relationship Specialty Start Date End Date Andrew Garvey MD PCP - General 10/[address] [place] [address] documented as of this encounter
--- OUTSIDE RECORDS SUMMARY | 2022-01-02 08:38 | XMS_ITS | Encounter Summary ---
:1945 Author Organization [facility] Address [address] [place] [address]. [place] [address] Care Team Providers Name Role Phone Chele Mena MD Primary Care Provider [phone] Birgit Whipple MD Unavailable Dragan Ritter MD Unavailable Birgit Whipple MD Unavailable Reason for Visit Reason Onset Date Comments Refill Request 09/28/2021 primidone (MYSOLINE) 50 MG tablet Encounter Details Date Type Department Care Team Description 09/28/2021 Refill [facility] Sarabjit, Refill Request [address] (primidone (MYSOLINE) [address] MG tablet) [place] [address] [phone] (Wo rk) Social History Tobacco Use Types Packs/Day Years Used Date Smoking Tobacco: Never Smokeless Tobacco: Never Alcohol Use Standard Drinks/Week Comments No 0 (1 standard drink = 0.6 oz pure alcoho l) Sex Assigned at Date Recorded Female 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 Not all labs required. documented in this encounter Plan of Treatment Upcoming Encounters Date Type Specialty Care Team Description 03/20/2022 Virtual Visit Neurology Birgit Whipple MD [address] [place] [phone] (Wo rk) documented as of this encounter Visit Diagnoses Diagnosis Tremor Abnormal involuntary movements documented in this encounter Care Teams Biometric Technician Relationship Specialty Start Date End Date Chele Mena PCP - General Internal Medicine 11/28/12 MD Hakan [facility] [address] [place] [address] Birgit Whipple MD Neurology 06/16/14 Dragan Ritter MD Urology 06/10/17 [facility] [id number] [place], [place] [id number] Birgit Whipple, Assigned Neuroscience 04/03/20 MD Provider [address] [place] [address] [phone] documented as of this encounter
--- OUTSIDE RECORDS SUMMARY | 2022-01-02 08:38 | XMS_ITS | Encounter Summary ---
:1945 Author Organization [facility] Address [address] [place] [address]. [place] [address] Care Team Providers Name Role Phone Chele Mena MD Primary Care Provider Birgit Whipple MD Unavailable Dragan Ritter MD Unavailable Birgit Whipple MD Unavailable Reason for Visit Reason Comments Medication Refill Encounter Details Date Type Department Care Team Description 03/12/2021 Refill [facility] Birgit Whipple, Medication Refill [address] MD [address] [place] [address] [place], [place] [phone] (Wo rk) Social History Tobacco Use Types Packs/Day Years Used Date Smoking Tobacco: Never Smokeless Tobacco: Never Alcohol Use Standard Drinks/Week Comments No 0 (1 standard drink = 0.6 oz pure alcoho l) Sex Assigned at Date Recorded Female 04/04/2021 11:57 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 Not all labs required. Scheduling has been notified to contact the pt for appointment. CIATE STORE DIRECTOR documented in this encounter Plan of Treatment Upcoming Encounters Date Type Specialty Care Team Description 03/20/2022 Virtual Visit Neurology Birgit Whipple MD [address] [place] [id number] (Wo rk) documented as of this encounter Visit Diagnoses Diagnosis Essential tremor Essential and other specified forms of t remor documented in this encounter Care Teams Sap Business Objects Consultant Relationship Specialty Start Date End Date Chele Mena PCP - General Internal Medicine 11/28/12 MD H[facility] [address] [place] [address] Birgit Whipple MD Neurology 06/16/14 Dragan Ritter MD Urology 06/10/17 [facility] [address] [place] [address] [phone] Birgit Whipple, Assigned Neuroscience 04/03/20 MD Provider [address] [place] [address] [phone] documented as of this encounter
--- OUTSIDE RECORDS SUMMARY | 2022-01-02 08:38 | XMS_ITS | Encounter Summary ---
:1945 Author Organization [facility] Address [address] [place] [address]. [place] [address] Care Team Providers Name Role Phone Chele Mena MD Primary Care Provider Birgit Whipple MD Unavailable Dragan Ritter MD Unavailable Abhishek Salguero MD Unavailable Reason for Visit Reason Onset Date Comments Refill Request 03/25/2020 Encounter Details Date Type Department Care Team Description 03/25/2020 Refill [facility] Birgit Whipple, Refill Request [address] MD [address] [place], [place] [phone] [place], [place] [address] (Wo rk) Social History Tobacco Use Types Packs/Day Years Used Date Smoking Tobacco: Never Smokeless Tobacco: Never Alcohol Use Standard Drinks/Week Comments No 0 (1 standard drink = 0.6 oz pure alcoho l) Sex Assigned at Date Recorded Female 04/04/2021 11:57 AM CAVALRY SCOUT COVID-19 Exposure Response Date Recorded In the last month, have you been in contact with No / Unsure 03/30/2020 11:20 AM CAVALRY SCOUT someone who was confirmed or suspected to have Coronavirus / COVID-19? documented as of this encounter Plan of Treatment Upcoming Encounters Date Type Specialty Care Team Description 03/20/2022 Virtual Visit Neurology Birgit Whipple MD [address] [place] [address] (Wo rk) documented as of this encounter Visit Diagnoses Diagnosis Essential tremor Essential and other specified forms of t remor documented in this encounter Care Teams Yarn Dry Room Worker Relationship Specialty Start Date End Date Chele Mena PCP - General Internal Medicine 11/28/12 MD Hakan [facility] [address] [place] [address] Birgit Whipple MD Neurology 06/16/14 Dragan Ritter MD Urology 06/10/17 MD [facility] [address] [id number] Abhishek Salguero MD Assigned Neuroscience 12/18/19 04/02/20 [address] [place] [address] documented as of this encounter
--- OUTSIDE RECORDS SUMMARY | 2022-01-02 08:38 | XMS_ITS | Encounter Summary ---
:1945 Author Organization [facility] Address [address] [place] [address]. [place] [address] Care Team Providers Name Role Phone Chele Mena MD Primary Care Provider Birgit Whiplpe MD Unavailable Dragan Ritter MD Unavailable Abhishek Sagluero MD Unavailable Reason for Visit Reason Comments RECHECK 1 year check up and medicati on questions Encounter Details Date Type Department Care Team Description 03/29/2020 Virtual Visit [facility] Sarabjit, Essential tremor; [address] Angela Genao MD Localization-related epilepsy (H) [place], [address] [place] [address] [id number] Social History Tobacco Use Types Packs/Day Years Used Date Smoking Tobacco: Never Smokeless Tobacco: Never Alcohol Use Standard Drinks/Week Comments No 0 (1 standard drink = 0.6 oz pure alcoho l) Sex Assigned at Date Recorded Female 04/04/2021 11:57 AM GRANULATING MACHINE OPERATOR COVID-19 Exposure Response Date Recorded In the last month, have you been in contact with No / Unsure 03/30/2020 11:20 AM GRANULATING MACHINE OPERATOR someone who was confirmed or suspected [...] resent by: Send to e- mail at: [email or web address] Will anyone else be joining your video visit? Video Start Time: 12:12 Video-Visit Details Type of service: Video Visit Video End Time:12:36 Originating Location (pt. Location): Home Distant Location (provider [facility] Platform used for Video Visit: [employer] [facility] Note Patient: Kisha Gandara : 1945 Age: [age] year old Today's virtual Visit: 03/29/2020 Epilepsy Data: ?? Patient History Primary Epileptologist/Provider: (P) Birgit Whipple M.D. Epilepsy Syndrome: (P) Localization-related epilepsy unspecified Age of Onset: (P) 54 Etiology : (P) Unknown Other Relevant Dx/ Issues: (P) Inpatient [facility]04 [facility]. [facility] for nonconvulsive status epilepticus. History of [...] four times daily or as directed. ??? [id number] D PO Take by mouth daily ??? Cholecalciferol (VITAMIN D3) 1000 units CAPS 1,000 capsules ??? clotrimazole (LOTRIMIN) 1 % cream Apply topically 2 times daily as needed ??? divalproex sodium extended-release (DEPAKOTE ER) 250 MG 24 hr tablet Take 3 tablets (750 mg) by mouth 2 times daily - Oral(Due for office visit before next refill,Please call [phone] to schedule) Thank you 540 tablet 0 ??? Glucose Blood (ACCU-CHEK BRAULIO PLUS ) ??? insulin aspart (NOVOLOG FLEXPEN) 100 UNIT/ML soln Inject Subcutaneous 3 times daily (with meals) ??? insulin glargine (LANTUS SOLOSTAR) 100 UNIT/ML PEN Inject Subcutaneous At Bedtime ??? Insulin Pen Needle (PEN NEEDLES 3/16) 31G X 5 MM MISC ??? LANsoprazole [...] mouth 2 times daily ??? nystatin (NYSTOP) [id number] UNIT/GM POWD APPLY 1 APPLICATION TOPICALLY TWICE DAILY. ??? [place]-3 Fatty Acids (FISH OIL PO) ??? oxybutynin [...] in outstretched arms, slight tremor in left [id number]. Assessment and Plan: 1. Focal epilepsy: seizures [...] Lyrica she does not have pain or hocz-ugu-cfparqc in her feet. She has some tingling [...] of the visit time. Birgit Whipple MD ULATING MACHINE OPERATOR documented in this encounter Plan of Treatment Upcoming Encounters Date Type Specialty Care Team Description 03/20/2022 Virtual Visit Neurology Birgit Whipple MD [address] [place] [address] [phone] (Wo rk) documented as of this encounter Results ALT (04/06/2020 2:41 PM GRANULATING MACHINE OPERATOR) athologist Signature ALT 40 0 - 50 U/L 04/07/2020 [facility] 11:34 AM GRANULATING MACHINE OPERATOR [facility] Specimen Anatomical Collection Method Collection Time Receive d Time (Source) Location / / Volume Laterality Blood specimen 04/06/2020 2:41 PM 021 2:42 (specimen) GRANULATING MACHINE OPERATOR PM GRANULATING MACHINE OPERATOR Birgit Whipple MD LAB - BLOOD ORDERABLES Performing Organization Address City/State/ZIP Code Phon e Number [facility] [address] [place] [address] AST (SGOT) (04/06/2020 2:41 PM GRANULATING MACHINE OPERATOR) athologist Signature AST 26 0 - 45 U/L 04/07/2020 [facility] 11:34 AM GRANULATING MACHINE OPERATOR [facility] Specimen Anatomical Collection Method Collection Time Receive d Time (Source) Location / / Volume Laterality Blood specimen 04/06/2020 2:41 PM 021 2:42 (specimen) GRANULATING MACHINE OPERATOR PM GRANULATING MACHINE OPERATOR Birgit Whipple MD LAB - BLOOD ORDERABLES Performing Organization Address City/State/ZIP Code Phon e Number [facility] [address] [place] [address] CBC with platelets (04/06/2020 2:41 PM GRANULATING MACHINE OPERATOR) athologist Signature WBC 8.3 4.0 - 11.0 04/06/2020 [facility] 10e9/L 3:03 PM [facility] RBC Count 4.34 3.8 - 5.2 04/06/2020 [place] 10e12/L 3:03 PM [facility] Hemoglobin 13.4 11.7 - 04/06/2020 [place] 15.7 g/dL 3:03 PM [facility] Hematocrit 41.3 35.0 - 04/06/2020 [place] 47.0 % 3:03 PM [facility] MCV 95 78 - 100 04/06/2020 [place] fl 3:03 PM [facility] MCH 30.9 26.5 - 04/06/2020 [facility] 33.0 pg 3:03 PM [facility] MCHC 32.4 31.5 - 04/06/2020 [place] 36.5 g/dL 3:03 PM [facility] RDW 14.0 10.0 - 04/06/2020 [place] 15.0 % 3:03 PM [facility] Platelet Count 234 150 - 450 04/06/2020 [place] 10e9/L 3:03 PM [facility] Specimen Anatomical Collection Method Collection Time Receive d Time (Source) Location / / Volume Laterality Blood specimen 04/06/2020 2:41 PM 021 2:42 (specimen) GRANULATING MACHINE OPERATOR PM GRANULATING MACHINE OPERATOR Birgit Whipple MD LAB - BLOOD ORDERABLES Performing Organization Address City/[facility]/ZIP Code Phon e Number [facility] [address] [place] [address] Valproic Acid Free (04/06/2020 2:41 PM GRANULATING MACHINE OPERATOR) athologist Signature Valproic Acid 6.0 6.0 - 20.0 04/07/2020 [facility] Free ug/mL 12:07 PM GRANULATING MACHINE OPERATOR [facility] Comment: Analysis performed by [employer] [place] [address] Specimen Anatomical Collection Method Collection Time Receive d Time (Source) Location / / Volume Laterality Blood specimen 04/06/2020 2:41 PM 021 2:42 (specimen) GRANULATING MACHINE OPERATOR PM GRANULATING MACHINE OPERATOR Birgit Whipple MD LAB - BLOOD ORDERABLES Performing Organization Address City/[facility]/ZIP Code Phon e Number [facility] [address] [place] [address] Valproic Acid level (04/06/2020 2:41 PM GRANULATING MACHINE OPERATOR) athologist Signature Valproic Acid 63 50 - 100 04/07/2020 [facility] mg/L 3:01 PM [facility] Specimen Anatomical Collection Method Collection Time Receive d Time (Source) Location / / Volume Laterality Blood specimen 04/06/2020 2:41 PM 021 2:42 (specimen) GRANULATING MACHINE OPERATOR PM GRANULATING MACHINE OPERATOR Birgit Whipple MD LAB - BLOOD ORDERABLES Performing Organization Address City/[facility]/ZIP Code Phon e Number [facility] [address] [place] [address] [facility] documented in this encounter Visit Diagnoses Diagnosis Essential tremor Essential and other specified forms of t remor Localization-related epilepsy (H) Localization-related (focal) (partial) e pilepsy and epileptic syndromes with simple partial seizures, without mention of int ractable epilepsy documented in this encounter Care Teams Director Of Rotc Relationship Specialty Start Date End Date Chele Mena PCP - General Internal Medicine 11/28/12 MD Hakan [facility] [address] [place] [address] Birgit Whipple MD Neurology 06/16/14 Dragan Ritter MD Urology 06/10/17 [facility] [address] [address] Abhishek Salguero MD Assigned Neuroscience 12/18/19 2 [address] [place] [address] documented as of this encounter
--- OUTSIDE RECORDS SUMMARY | 2022-01-02 08:38 | XMS_ITS | Encounter Summary ---
:1945 Author Organization [facility] Address [address] [place] [address]. [place] [address] Care Team Providers Name Role Phone Chele Mena MD Primary Care Provider [phone] Birgit Whipple MD Unavailable Dragan Ritter MD Unavailable Birgit Whipple MD Unavailable Encounter Details Date Type Department Care Team Description 09/23/2020 Telephone [facility] Neurology [facility] Candace Li MD [address] [place] [id number] [place] [address] 5-4800 [phone] Social History Tobacco Use Types Packs/Day Years Used Date Smoking Tobacco: Never Smokeless Tobacco: Never Alcohol Use Standard Drinks/Week Comments No 0 (1 standard drink = 0.6 oz pure alcoho l) Sex Assigned at Date Recorded Female 04/04/2021 11:57 AM NOCTURNIST documented as of this encounter Miscellaneous Notes [...] 03/20/2022 Virtual Visit Neurology Birgit Whipple MD [address] [place] [address] [phone] (Wo rk) documented as of this encounter Visit Diagnoses Diagnosis Nonintractable epilepsy without status e pilepticus, unspecified epilepsy type (H) - Primary documented in this encounter Care Teams Classroom Technology Coach Relationship Specialty Start Date End Date Chele Mena PCP - General Internal Medicine 11/28/[address] [facility] [address] [place] [address] Birgit Whipple MD Neurology 06/16/14 Dragan Ritter MD Urology 06/10/17 [facility] [address] [address] Birgit Whipple Assigned Neuroscience 04/03/20 MD Provider [address] [place] [address] documented as of this encounter
--- OUTSIDE RECORDS SUMMARY | 2022-01-02 08:38 | XMS_ITS | Encounter Summary ---
:1945 Author Organization [facility] Address [address] [place] [address]. [place] [address] Care Team Providers Name Role Phone Chele Mena MD Primary Care Provider [phone] Birgit Whipple MD Unavailable Dragan Ritter MD Unavailable Birgit Whipple MD Unavailable Encounter Details Date Type Department Care Team Description 04/06/2020 [facility] Loc alization-related [facility] epilepsy (H) [address] [place] [address] Social History Tobacco Use Types Packs/Day Years Used Date Smoking Tobacco: Never Smokeless Tobacco: Never Alcohol Use Standard Drinks/Week Comments No 0 (1 standard drink = 0.6 oz pure alcoho l) Sex Assigned at Date Recorded Female 04/04/2021 11:57 AM SPLICING TECHNICIAN COVID-19 Exposure Response Date Recorded In the last month, have you been in contact with No / Unsure 04/06/2020 2:36 PM SPLICING TECHNICIAN someone who was confirmed or suspected to have Coronavirus / COVID-19? documented as of this encounter Plan of Treatment Upcoming Encounters Date Type Specialty Care Team Description 03/20/2022 Virtual Visit Neurology Birgit Whipple MD [address] [place] [address] (Wo rk) documented as of this encounter Procedures Procedure Name Priority Date/Time Associated Diagnosis Comme nts VALPROIC ACID FREE Routine 04/06/2020 2:41 PM Localization-rel ated Results for this AND TOTAL SPLICING TECHNICIAN epilepsy (H) procedure are i n the results section. VALPROIC ACID Routine 04/06/2020 2:41 PM Localization-related Results for this SPLICING TECHNICIAN epilepsy (H) procedure are i n the results section. AST Routine 04/06/2020 2:41 PM Localization-related R esults for this SPLICING TECHNICIAN epilepsy (H) procedure are i n the results section. ALT Routine 04/06/2020 2:41 PM Localization-related R esults for this SPLICING TECHNICIAN epilepsy (H) procedure are i n the results section. CBC WITH PLATELETS Routine 04/06/2020 2:41 PM Localization-rel ated Results for this SPLICING TECHNICIAN epilepsy (H) procedure are i n the results section. documented in this encounter Results Valproic Acid level (04/06/2020 2:41 PM SPLICING TECHNICIAN) athologist Signature Valproic Acid 63 50 - 100 04/07/2020 [facility] mg/L 3:01 PM [facility] Specimen Anatomical Collection Method Collection Time Receive d Time (Source) Location / / Volume Laterality Blood specimen 04/06/2020 2:41 PM 021 2:42 (specimen) SPLICING TECHNICIAN PM SPLICING TECHNICIAN Birgit Whipple MD LAB - BLOOD ORDERABLES Performing Organization Address City/State/ZIP Code Phon e Number [facility] [address] [place], [place] [phone] [place] [address] Valproic Acid Free (04/06/2020 2:41 PM SPLICING TECHNICIAN) athologist Signature Valproic Acid 6.0 6.0 - 20.0 04/07/2020 [facility] Free ug/mL 12:07 PM [facility] Comment: Analysis performed by [email or web address] [place] [address] Specimen Anatomical Collection Method Collection Time Receive d Time (Source) Location / / Volume Laterality Blood specimen 04/06/2020 2:41 PM 021 2:42 (specimen) SPLICING TECHNICIAN PM SPLICING TECHNICIAN Birgit Whipple MD LAB - BLOOD ORDERABLES Performing Organization Address City/[facility]/ZIP Code Phon e Number [facility] [address] [place] [address] CBC with platelets (04/06/2020 2:41 PM SPLICING TECHNICIAN) athologist Signature WBC 8.3 4.0 - 11.0 04/06/2020 [facility] 10e9/L 3:03 PM [facility] RBC Count 4.34 3.8 - 5.2 04/06/2020 [facility] 10e12/L 3:03 PM [facility] Hemoglobin 13.4 11.7 - 04/06/2020 [facility] 15.7 g/dL 3:03 PM [facility] Hematocrit 41.3 35.0 - 04/06/2020 [facility] 47.0 % 3:03 PM [facility] MCV 95 78 - 100 04/06/2020 [facility] fl 3:03 PM [facility] MCH 30.9 26.5 - 04/06/2020 [facility] 33.0 pg 3:03 PM [facility] MCHC 32.4 31.5 - 04/06/2020 [facility] 36.5 g/dL 3:03 PM [facility] RDW 14.0 10.0 - 04/06/2020 [facility] 15.0 % 3:03 PM [facility] Platelet Count 234 150 - 450 04/06/2020 [facility] 10e9/L 3:03 PM [facility] Specimen Anatomical Collection Method Collection Time Receive d Time (Source) Location / / Volume Laterality Blood specimen 04/06/2020 2:41 PM 021 2:42 (specimen) SPLICING TECHNICIAN PM SPLICING TECHNICIAN Birgit Whipple MD LAB - BLOOD ORDERABLES Performing Organization Address City/[facility]/ZIP Code Phon e Number [facility] [address] [place] [address] AST (SGOT) (04/06/2020 2:41 PM SPLICING TECHNICIAN) P athologist Signature AST 26 0 - 45 U/L 04/07/2020 [facility] 11:34 AM SPLICING TECHNICIAN [facility] Specimen Anatomical Collection Method Collection Time Receive d Time (Source) Location / / Volume Laterality Blood specimen 04/06/2020 2:41 PM 021 2:42 (specimen) SPLICING TECHNICIAN PM SPLICING TECHNICIAN Birgit Whipple MD LAB - BLOOD ORDERABLES Performing Organization Address City/State/ZIP Code Phon e Number [facility] [address] [place] [address] ALT (04/06/2020 2:41 PM SPLICING TECHNICIAN) athologist Signature ALT 40 0 - 50 U/L 04/07/2020 [facility] 11:[address] [facility] Specimen Anatomical Collection Method Collection Time Receive d Time (Source) Location / / Volume Laterality Blood specimen 04/06/2020 2:41 PM 021 2:42 (specimen) SPLICING TECHNICIAN PM SPLICING TECHNICIAN Birgit Whipple MD LAB - BLOOD ORDERABLES Performing Organization Address City/State/ZIP Code Phon e Number [facility] [address], [place] [address] documented in this encounter Visit Diagnoses Diagnosis Localization-related epilepsy (H) Localization-related (focal) (partial) e pilepsy and epileptic syndromes with simple partial seizures, without mention of int ractable epilepsy documented in this encounter Care Teams Bowling Ball Assembler Relationship Specialty Start Date End Date Chele Mena PCP - General Internal Medicine 11/28/12 MD Hakan [facility] [address] [place] [address] Birgit Whipple MD Neurology 06/16/14 Dragan Ritter MD Urology 06/10/17 [facility] [address] [id number] Birgit Whipple Assigned Neuroscience 04/03/[address] [place] [phone] documented as of this encounter
--- OUTSIDE RECORDS SUMMARY | 2022-01-02 08:38 | XMS_ITS | Clinical Summary ---
:1945 Author Organization [facility] Address [address] [place] [address]. [place] [address] Care Team Providers Name Role Phone Chele Mena MD Primary Care Provider Birgit Whipple MD Unavailable Dragan Ritetr MD Unavailable Birgit Whipple MD Unavailable Allergies Active Allergy Reactions Severity Noted Date Comments Bee Venom 06/19/2013 Lacosamide Other (See Comments) 02/21/2016 Oxcarbazepine Rash Low 02/21/2016 Seasonal Allergies 06/19/2013 Trileptal Rash Low 11/28/2012 Vimpat 11/28/2012 Delirium. Medications Medication Sig Dispensed Refills Start Date End Date Status simvastatin (ZOCOR) Take by mouth 0 Active 20 MG tablet daily metoprolol Take 50 mg by 0 Activ e (LOPRESSOR) 50 MG mouth 2 times tablet daily lisinopril Take 10 mg by 0 Activ e (PRINIVIL,ZESTRIL) 10 mouth 2 times MG tablet daily Ascorbic Acid 0 Active (VITAMIN C PO) [place]-3 Fatty Acids 0 Active (FISH OIL PO) Multiple Vitamin 0 Act hortencia (DAILY MULTIVITAMIN PO) aspirin 81 MG tablet Take by mouth 0 Active daily LANsoprazole Take by mouth 0 Act hortencia (PREVACID) 30 MG daily capsule [id number]-[id number]-MVL Take by mouth 0 Active HYMAN D PO daily amoxicillin (AMOXIL) Take 2,000 mg by 0 Active 500 MG capsule mouth daily TAKE BEFORE DENTIST APPOINTMENTS clotrimazole Apply topically 2 0 Active (LOTRIMIN) 1 % cream times daily as needed naproxen sodium 220 Take 220 mg by 0 Active MG capsule mouth 2 times daily ACETAMINOPHEN PO 0 Act hortencia acetaminophen-codeine Take 1-2 tablets 0 Active (TYLENOL #3) 300-30 by mouth daily as MG per tablet needed for moderate pain blood glucose 1 each by In Vitro 0 Active monitoring (SOFTCLIX) route Use to test lancets blood sugar four times daily or as directed. Insulin Pen Needle 0 A ctive (PEN NEEDLES 05/10) 31G X 5 MM MISC Glucose Blood 0 Active (ACCU-CHEK BRAULIO PLUS ) insulin aspart Inject 0 Activ e (NOVOLOG FLEXPEN) 100 Subcutaneous 3 UNIT/ML soln times daily (with meals) insulin glargine Inject 0 Act hortencia (LANTUS SOLOSTAR) 100 Subcutaneous At UNIT/ML PEN Bedtime Cholecalciferol 1,000 capsules 0 Active (VITAMIN D3) 1000 units CAPS oxybutynin Take 5 mg by mouth 0 03/11/2017 Active (DITROPAN-XL) 5 MG 24 hr tablet nystatin (NYSTOP) APPLY 1 0 04/03/2017 A ctive [id number] UNIT/GM POWD APPLICATION TOPICALLY TWICE DAILY. insulin glargine Inject 0 Act hortencia (BASAGLAR KWIKPEN) Subcutaneous daily 100 UNIT/ML pen tolterodine ER Take 4 mg by mouth 0 Active (DETROL LA) 4 MG 24 daily hr capsule divalproex sodium Take 3 tablets 540 tablet 3 04/11/2021 Active extended-release (750 mg) by mouth (DEPAKOTE ER) 250 MG 2 times daily - 24 hr Oral tabletIndications: Localization-related epilepsy (H) primidone (MYSOLINE) TAKE 2 TABS IN THE 186 tablet 6 2 Active 50 MG MORNING AND 4 TABS tabletIndications: IN THE EVENING Tremor pregabalin (LYRICA) TAKE 2 CAPSULES BY 360 capsule 3 2 Active 50 MG MOUTH IN THE capsuleIndications: MORNING, 1 CAP AT Diabetic NOON, AND 1 CAP IN polyneuropathy THE EVENING. associated with diabetes mellitus due to underlying condition (H) Active Problems Problem Noted Date Epilepsy 02/10/2014 Encounters Date Type Specialty Care Team Description 11/08/2021 Refill Neurology Birgit Whipple MD [facility] d[facility] Ref[facility] (PREGABALIN 50 MG CAPSULE) 10/30/2021 Refill Neurology Birgit Whipple MD [facility] dication Refill from Last 3 Months Immunizations Name Administration Dates Next Due FLUAD(HD)65+ QUAD 11/22/2020 Flu, Unspecified 01/25/2018 C2w0-65 Novel Flu 11/17/2009 HepA-Adult 01/25/2021 Influenza (High [...] Date Smoking Tobacco: Never Smokeless Tobacco: Never Tobacco Cessation: Counseling Given: No Alcohol Use Standard Drinks/Week Comments No 0 (1 standard drink = 0.6 oz pure alcoho l) Sex Assigned at Date Recorded Female 04/04/2021 11:57 AM GLOBAL LOGISTICS MANAGER Last Filed Vital Signs Vital Sign Reading Time Taken Comments Blood Pressure 119/55 04/06/2019 10:05 AM GLOBAL LOGISTICS MANAGER Pulse 67 04/06/2019 10:05 AM GLOBAL LOGISTICS MANAGER Temperature 36.4 ??C (97.5 ??F) 02/06/2018 9:19 AM GLOBAL LOGISTICS MANAGER Respiratory Rate 16 06/10/2017 11:01 AM CDT Oxygen Saturation - - Inhaled Oxygen Concentration - - Weight 122.4 kg (269 lb 12.8 oz) 04/06/2019 10:05 AM GLOBAL LOGISTICS MANAGER Height 165.1 cm (5' 5) 02/06/2018 9:19 AM GLOBAL LOGISTICS MANAGER Body Mass Index 44.9 02/06/2018 9:19 AM GLOBAL LOGISTICS MANAGER Plan of Treatment Upcoming Encounters Date Type Specialty Care Team Description 03/20/2022 Virtual Visit Neurology Birgit Whipple MD [address] [place] [phone] (Wo rk) Health Maintenance Due Date Last Done Comments ADVANCE CARE PLANNING 1945 ANNUAL REVIEW OF HM ORDERS 1945 DEXA 1945 DIABETIC FOOT EXAM 1945 EYE EXAM 1945 LIPID 1945 MICROALBUMIN 1945 HEPATITIS C SCREENING 09/01/1963 MEDICARE ANNUAL WELLNESS 2010 VISIT A1C 07/15/2018 04/17/2018 BMP 04/17/2019 04/17/2018 COVID-19 Vaccine (4 - 01/25/2021 11/30/2020, 05/07/2020, Booster for Pfizer series) 04/16/2020 PHQ-2 (once per calendar 02/25/2021 03/29/2020, 04/06/2019, year) 02/06/2018, Additional history exists INFLUENZA VACCINE (#1) 2021 11/22/2020, 11/14/2018, 01/25/2018, Additional history exists FALL RISK ASSESSMENT 04/11/2022 04/11/2021, 04/06/2019, 06/10/2017 DTAP/TDAP/TD IMMUNIZATION 12/05/2028 12/05/2018, 11/21/2012 , (3 - Td or Tdap) 11/21/2012 COLONOSCOPY Discontinued 09/05/2007 COLORECTAL CANCER Discontinued SCREENING MAMMO SCREENING Discontinued 06/10/2017 (Not Needed) Pneumococcal Vaccine: 65+ Completed 10/23/2017, 04/07/2015 , Years 12/01/2013, Additional history exists ZOSTER IMMUNIZATION Completed 11/13/2018, 08/07/2018, 10/23/2017, Additional history exists CT COLONOGRAPHY Discontinued FIT-DNA (Cologuard) Discontinued FIT Discontinued FLEX SIG Discontinued IPV IMMUNIZATION Aged Out No longer eligi ble based on patient 's age to complete this topic MENINGITIS IMMUNIZATION Aged Out No longe r eligible based on patient 's age to complete this topic Insurance Payer Benefit Plan / Subscriber ID Effective Dates Phone Addre ss Type Group MEDICA MEDICA SELECT [id number] 2020-Presen [phone] [place] [address] Indemnity SOLUTION t [address] [place] [address] MEDICARE MEDICARE [id number] 2010-Presen [phone] ATTN CL AIMS Medicare t 0 [address] [place] [address] Kisha Gandara Personal/Famil Self 1945 [phone] [id number] (Home) [place] [address] Care Teams Aml Analyst Relationship Specialty Start Date End Date Chele Mena PCP - General Internal Medicine 11/28/12 MD Hakan [facility] [address] [place] [address] Birgit Whipple MD Neurology 06/16/14 Dragan Ritter MD Urology 06/10/17 [facility] [address] [facility] [address] [place], [place] [address] Birgit Whipple, Assigned Neuroscience 04/03/[address] [place] [address] [phone]
--- OUTSIDE RECORDS SUMMARY | 2022-01-02 08:38 | XMS_ITS | Encounter Summary ---
:1945 Author Organization [facility] Address [address] [place] [address] Care Team Providers Name Role Phone Andrew Garvey MD Primary Care Provider Encounter Details Date Type Department Care Team Description 02/25/1989 PN Conversion Only BURLAP ROLL COVERER [address] [place] [address] Social History Tobacco Use Types Packs/Day Years Used Date Smoking Tobacco: Never Assessed Sex Assigned at Date Recorded Female 01/02/2021 9:25 PM TAKER OFF DRYING KILN documented as of this encounter Plan of Treatment Not on filedocumented as of this encounter Visit Diagnoses Not on filedocumented in this encounter Care Teams Bearing Inspector Relationship Specialty Start Date End Date Andrew Garvey MD PCP - General 10/05/[address] [place] [address] documented as of this encounter
--- OUTSIDE RECORDS SUMMARY | 2022-01-02 08:38 | XMS_ITS | Encounter Summary ---
:1945 Author Organization [facility] Address [address] [place] [address]. [place] [address] Care Team Providers Name Role Phone Chele Mena MD Primary Care Provider [phone] Birgit Whipple MD Unavailable Dragan Ritter MD Unavailable Birgit Whipple MD Unavailable Reason for Visit Reason Comments Medication Refill PREGABALIN 50 MG CAPSULE Encounter Details Date Type Department Care Team Description 01/30/2021 Refill [facility] Sarabjit, Medication Refill [address] (PREGABALIN 50 MG [address] CAPSULE) [place] [phone] (Wo rk) Social History Tobacco Use Types Packs/Day Years Used Date Smoking Tobacco: Never Smokeless Tobacco: Never Alcohol Use Standard Drinks/Week Comments No 0 (1 standard drink = 0.6 oz pure alcoho l) Sex Assigned at Date Recorded Female 04/04/2021 11:57 AM DENTAL SURGERY DOCTOR documented as of this encounter Miscellaneous Notes Telephone Encounter - Shayna Bullard RN - 01/31/2021 4:45 AM CST PREGABALIN 50 MG CAPSULE Last Written Prescription Date: 12/05/2020 Last Fill Quantity: 124, # refills: 1 Last Office Visit : 03/29/2020 Future Office visit: None Routing refill request to provider for review/approval because: Drug not on the [facility], [facility] or [facility] refill protocol or controlled substance Shayna Bullard RN Central Triage Red Flags/Med Refills AL SURGERY DOCTOR documented in this encounter Plan of Treatment Upcoming Encounters Date Type Specialty Care Team Description 03/20/2022 Virtual Visit Neurology Birgit Whipple MD [address] [place] [address] [phone] (Wo rk) documented as of this encounter Visit Diagnoses Diagnosis 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 (H) documented in this encounter Care Teams Sample Tailor Relationship Specialty Start Date End Date Chele Mena PCP - General Internal Medicine 11/28/12 MD Hakan [facility] [address] [place] [address] Birgit Whipple MD Neurology 06/16/14 Dragan Ritter MD Urology 06/10/17 [facility] [address] [id number] Birgit Whipple Assigned Neuroscience 04/03/20 MD Provider [address] [place] [address] documented as of this encounter
--- OUTSIDE RECORDS SUMMARY | 2022-01-02 08:38 | XMS_ITS | Encounter Summary ---
:1945 Author Organization [facility] Address [address] [place] [address]. [place] [address] Care Team Providers Name Role Phone Chele Mena MD Primary Care Provider Birgit Whipple MD Unavailable Dragan Ritter MD Unavailable Birgit Whipple MD Unavailable Reason for Visit Reason Onset Date Comments Medication Refill PREGABALIN 50 MG CAP JYOTI Refill Request 09/26/2020 Encounter Details Date Type Department Care Team Description 09/21/2020 Refill [facility] Epilepsy Care Sarabjit, Medication Refill [address] (PREGABALIN 50 MG [address] CAPSULE); [place] [address] [phone] (Wo rk) Social History Tobacco Use Types Packs/Day Years Used Date Smoking Tobacco: Never Smokeless Tobacco: Never Alcohol Use Standard Drinks/Week Comments No 0 (1 standard drink = 0.6 oz pure alcoho l) Sex Assigned at Date Recorded Female 04/04/2021 11:57 AM JACQUARD CARD LACER documented as of this encounter Miscellaneous Notes [...] only one dose for today. Please fill zuly and send to pharmacy. Telephone Encounter - Nancy Devine MA - 09/23/2020 11:02 AM CDT Patient is out of medication , please fill ZULY. Telephone Encounter - Shayna Bullard RN - 09/21/2020 1:07 PM CDT PREGABALIN 50 MG CAPSULE Last Written Prescription Date: 03/21/2020 Last Fill Quantity: 124, # refills: 5 Last Office Visit : 03/29/2020 Future Office visit: None Routing refill request to provider for review/approval because: Drug not on the [facility], [facility] or [facility] refill protocol or controlled substance Shayna Bullard RN Central Triage Red Flags/Med Refills documented in this encounter Plan of Treatment Upcoming Encounters Date Type Specialty Care Team Description 03/20/2022 Virtual Visit Neurology Rui-Birgit Gomez MD [address] [place] [phone] (Wo rk) documented as of this encounter Visit Diagnoses Diagnosis 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 (H) documented in this encounter Care Teams Delivery Sales Worker Relationship Specialty Start Date End Date Chele Mena PCP - General Internal Medicine 11/28/12 MD Hakan [facility] [address] [place] [address] Birgit Whipple MD Neurology 06/16/14 Dragan Ritter MD Urology 06/10/17 [facility] [address] [place] [address] Birgit Whipple Assigned Neuroscience 04/03/20 MD Provider [address] [place] [address] documented as of this encounter
--- OUTSIDE RECORDS SUMMARY | 2022-01-02 08:38 | XMS_ITS | Encounter Summary ---
:1945 Author Organization [facility] Address [address] [place] [address]. [place] [address] Care Team Providers Name Role Phone Chele Mena MD Primary Care Provider [phone] Birgit Whipple MD Unavailable Dragan Ritter MD Unavailable Abhishek Salguero MD Unavailable Encounter Details Date Type Department Care Team Description 03/30/2020 Travel Social History Tobacco Use Types Packs/Day Years Used Date Smoking Tobacco: Never Smokeless Tobacco: Never Alcohol Use Standard Drinks/Week Comments No 0 (1 standard drink = 0.6 oz pure alcoho l) Sex Assigned at Date Recorded Female 04/04/2021 11:57 AM PLASTER DIE MAKER COVID-19 Exposure Response Date Recorded In the last month, have you been in contact with No / Unsure 03/30/2020 11:20 AM PLASTER DIE MAKER someone who was confirmed or suspected to have Coronavirus / COVID-19? documented as of this encounter Plan of Treatment Upcoming Encounters Date Type Specialty Care Team Description 03/20/2022 Virtual Visit Neurology Birgit Whipple MD [address] [place] [address] (Wo rk) documented as of this encounter Visit Diagnoses Not on filedocumented in this encounter Care Teams Grapple Operator Relationship Specialty Start Date End Date Chele Mena PCP - General Internal Medicine 11/28/12 MD Hakan [facility] [address] [place] [address] Birgit Whipple MD Neurology 06/16/14 Dragan Ritter MD Urology 06/10/17 [facility] [employer] [address] [phone] Abhishek Salguero MD Assigned Neuroscience 12/18/19 04/02/20 [address] [place], [place] [phone] documented as of this encounter
--- OUTSIDE RECORDS SUMMARY | 2022-01-02 08:38 | XMS_ITS | Encounter Summary ---
:1945 Author Organization [facility] Address [address] [place] [address]. [place] [address] Care Team Providers Name Role Phone Chele Mena MD Primary Care Provider [phone] Birgit Whipple MD Unavailable Dragan Ritter MD Unavailable Abhishek Salguero MD Unavailable Reason for Visit Reason Comments Medication Refill DIVALPROEX SOD ER 250 MG TAB Encounter Details Date Type Department Care Team Description 03/03/2020 Refill [facility] Epilepsy [facility] Sarabjit, Medication Refill [address] (DIVALPROEX SOD ER [address] [facility] MG TAB) [place] [address] [phone] (Wo rk) Social History Tobacco Use Types Packs/Day Years Used Date Smoking Tobacco: Never Smokeless Tobacco: Never Alcohol Use Standard Drinks/Week Comments No 0 (1 standard drink = 0.6 oz pure alcoho l) Sex Assigned at Date Recorded Female 04/04/2021 11:57 AM OPERATIONS TRAINER documented as of this encounter Miscellaneous Notes [...] (DEPAKOTE ER) 250 MG 24 hr tablet [[id number]] Overridden by Birgit Whipple MD on Mar [...] 1,000 MG); FREQUENCY EXCEEDED BY 1 DOSES/DA ATIONS TRAINER documented in this encounter Plan of Treatment Upcoming Encounters Date Type Specialty Care Team Description 03/20/2022 Virtual Visit Neurology Birgit Whipple MD [address] [place] [phone] (Wo rk) documented as of this encounter Visit Diagnoses Diagnosis 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
--- OUTSIDE RECORDS SUMMARY | 2022-01-02 08:38 | XMS_ITS | Encounter Summary ---
:1945 Author Organization [facility] Address [address] [place] [address] Care Team Providers Name Role Phone Andrew Garvey MD Primary Care Provider Encounter Details Date Type Department Care Team Description 02/06/2021 Lab Visit [facility] Encounter for counseling for travel; [address] [facility] Encounter for screening for COVID-19 [place] [address] Social History Tobacco Use Types Packs/Day Years Used Date Smoking Tobacco: Never Assessed Sex Assigned at Date Recorded Female 01/02/2021 9:25 PM SINGLE STROKE PREFORMER documented as of this encounter Plan of Treatment Not on filedocumented as of this encounter Procedures Procedure Name Priority Date/Time Associated Comments Diagnosis 2019 NOVEL Routine 02/06/2021 9:42 AM Encounter for Results for this CORONAVIRUS SINGLE STROKE PREFORMER counseling for procedure are in travel the results Encounter for section. screening for COVID-19 documented in this encounter Results 2019 Novel Coronavirus (COVID-19) (02/06/2021 9:42 AM SINGLE STROKE PREFORMER) [facility] Method Time Signature COVID-19 Not Not 02/06/2021 [facility] Interpretation Detected Detected 6:46 PM CENTRAL LAB SINGLE STROKE PREFORMER Source Nares, left 02/06/2021 [facility] and right 6:46 PM CENTRAL LAB SINGLE STROKE PREFORMER Specimen Anatomical Collection Method Collection Time Receive d Time (Source) Location / / Volume Laterality Swab (Source ENTIRE ANTERIOR Non-blood 02/06/2021 9:42 AM 2020 9:42 Required) [facility] / Unknown Collection / SINGLE STROKE PREFORMER AM SINGLE STROKE PREFORMER Unknown Narrative [facility]AL [facility] - 02/06/2021 6:46 PM SINGLE STROKE PREFORMER Test performed by real-time PCR. This te st has been authorized by the FDA under an Emergency Use Authorization (EUA) for us e by authorized laboratories. Dejah Segal APRN, SCOREKEEPER LAB_1 Performing Organization Address City/State/ZIP Code Phon e Number [facility] [address] [place] [address] documented in this encounter Visit Diagnoses Diagnosis Encounter for counseling for travel Encounter for screening for COVID-19 documented in this encounter Care Teams Certified Tower Climber Relationship Specialty Start Date End Date Andrew Garvey MD PCP - General 10/05/[address] [place] [address] documented as of this encounter
--- OUTSIDE RECORDS SUMMARY | 2022-01-02 08:38 | XMS_ITS | Encounter Summary ---
:1945 Author Organization [facility] Address [address] [place] [address]. [place] [address] Care Team Providers Name Role Phone Chele [...] at Date Recorded Female 04/04/2021 11:57 AM EXECUTIVE COMMUNICATIONS MANAGER documented as of this encounter Plan of Treatment Upcoming Encounters Date Type Specialty Care Team Description 03/20/2022 Virtual Visit Neurology Birgit Whipple MD [address] [place] [phone] (Wo rk) documented as of this encounter Visit Diagnoses Not on filedocumented in this encounter Care Teams Hydraulic Lift Operator Relationship Specialty Start Date End Date Chele Mena MD PCP - General Internal Medicine 11/28/12 [facility] [address] [place] [address] Birgit Whipple MD MD Neurology 06/16/14 Dragan Ritter MD MD Urology 06/10/17 [facility] [address] [place] [address] documented as of this encounter
--- OUTSIDE RECORDS SUMMARY | 2022-01-02 08:38 | XMS_ITS | Encounter Summary ---
:1945 Author Organization [facility] Address [address] [place] [address]. [place] [address] Care Team Providers Name Role Phone Chele Mena MD Primary Care Provider Birgit Whipple MD Unavailable Dragan Ritter MD Unavailable Birgit Whipple MD Unavailable Reason for Visit Reason Onset Date Comments Refill Request 03/16/2021 Encounter Details Date Type Department Care Team Description 03/16/2021 MyC Refill [facility] Epilepsy [facility] Birgit Whipple, Refill Request [address]ana MD [address] [place] [phone] [place] [address] (Wo rk) Social History Tobacco Use Types Packs/Day Years Used Date Smoking Tobacco: Never Smokeless Tobacco: Never Alcohol Use Standard Drinks/Week Comments No 0 (1 standard drink = 0.6 oz pure alcoho l) Sex Assigned at Date Recorded Female 04/04/2021 11:57 AM LABORER VINEYARD documented as of this encounter Miscellaneous Notes [...] MG Oral Tablet (MYSOLINE) Class: E-Prescribe Order: [id number] E-Prescribing Status: Receipt confirmed by pharmacy (03/15/2021 10:58 AM LABORER VINEYARD) Medication Administration Instructions For additional refills, please schedule a follow-up appointment. Pharmacy [facility] [address] [facility] [address] [facility] Patient notified via [employer] RER VINEYARD documented in this encounter Plan of Treatment Upcoming Encounters Date Type Specialty Care Team Description 03/20/2022 Virtual Visit Neurology Birgit Whipple MD [address] [place] [address] [phone] (Wo rk) documented as of this encounter Visit Diagnoses Diagnosis Essential tremor Essential and other specified forms of t remor documented in this encounter Care Teams Legal Adviser Relationship Specialty Start Date End Date Chele Mena PCP - General Internal Medicine 11/28/12 MD Hakan [facility] [address] [place] [address] Birgit Whipple MD Neurology 06/16/14 Dragan Ritter MD Urology 06/10/17 [facility] [address] [facility] [address] [address] Birgit Whipple Assigned Neuroscience 04/03/20 MD Provider [address] [place] [address] [phone] documented as of this encounter
--- OUTSIDE RECORDS SUMMARY | 2022-01-02 08:38 | XMS_ITS | Encounter Summary ---
:1945 Author Organization [facility] Address [address] [place] [address]. [place] [address] Care Team Providers Name Role Phone Chele Mena MD Primary Care Provider [phone] Birgit Whipple MD Unavailable Dragan Ritter MD Unavailable Encounter Details Date Type Department Care Team Description 05/05/2019 Travel Social History Tobacco Use Types Packs/Day Years Used Date Smoking Tobacco: Never Smokeless Tobacco: Never Alcohol Use Standard Drinks/Week Comments No 0 (1 standard drink = 0.6 oz pure alcoho l) Sex Assigned at Date Recorded Female 04/04/2021 11:57 AM RAYON TESTER documented as of this encounter Plan of Treatment Upcoming Encounters Date Type Specialty Care Team Description 03/20/2022 Virtual Visit Neurology Birgit Whipple MD [address] [place] [address] [phone] (Wo rk) documented as of this encounter Visit Diagnoses Not on filedocumented in this encounter Care Teams Entry Level Manufacturing Engineer Relationship Specialty Start Date End Date Chele Mena MD PCP - General Internal Medicine 11/28/12 [facility] [address] [place] [address] Birgit Whipple MD MD Neurology 06/16/14 Dragan Ritter MD MD Urology 06/10/17 [facility] [address] [address] documented as of this encounter
--- OUTSIDE RECORDS SUMMARY | 2022-01-02 08:38 | XMS_ITS | Encounter Summary ---
:1945 Author Organization [place] Address [address] [place] [address]. [place] [address] Care Team Providers Name Role Phone Chele Mena MD Primary Care Provider [phone] Birgit Whipple MD Unavailable Dragan Ritter MD Unavailable Birgit Whipple MD Unavailable Reason for Visit Reason Comments Medication Refill pregabalin (LYRICA) 50 MG ca psule Encounter Details Date Type Department Care Team Description 09/30/2020 Refill [facility] Sarabjit Medicat ion Refill Neurology Clinic MD Birgit (pregabalin (LYRICA) [address] MG capsule) [address] [place] [address] [place] [address] (Wo rk) [address] [phone] Social History Tobacco Use Types Packs/Day Years Used Date Smoking Tobacco: Never Smokeless Tobacco: Never Alcohol Use Standard Drinks/Week Comments No 0 (1 standard drink = 0.6 oz pure alcoho l) Sex Assigned at Date Recorded Female 04/04/2021 11:57 AM MECHANICAL PROCESS ENGINEER documented as of this encounter Miscellaneous Notes [...] 03/20/2022 Virtual Visit Neurology Birgit Whipple MD [address] [place] [phone] (Wo rk) documented as of this encounter Visit Diagnoses Diagnosis Nonintractable epilepsy without status e pilepticus, unspecified epilepsy type (H) documented in this encounter Care Teams Plastic Finisher Relationship Specialty Start Date End Date Chele Mena PCP - General Internal Medicine 11/28/12 MD Hakan [facility] [address] [place] [address] Birgit Whipple MD Neurology 06/16/14 Dragan Ritter MD Urology 06/10/17 [facility] [address] [address] Birgit Whipple Assigned Neuroscience 04/03/20 MD Provider [address] [place] [address] documented as of this encounter
--- OUTSIDE RECORDS SUMMARY | 2022-01-02 08:38 | XMS_ITS | Encounter Summary ---
:1945 Author Organization [place] Address [address] [place] [address]. [place] [address] Care Team Providers Name Role Phone Chele Mena MD Primary Care Provider [phone] Birgit Whipple MD Unavailable Dragan Ritter MD Unavailable Encounter Details Date Type Department Care Team Description 05/05/2019 Office Visit [facility] NEUROSPECIALTIES Abhishek Salguero, Diabetic polyneuropathy asso ciated with type 2 diabetes mellitus (H) (Primary Dx); [address] Lumbar radiculopathy [place] [address] [facility] [address] [place], [place] [address] Social History Tobacco Use Types Packs/Day Years Used Date Smoking Tobacco: Never Smokeless Tobacco: Never Alcohol Use Standard Drinks/Week Comments No 0 (1 standard drink = 0.6 oz pure alcoho l) Sex Assigned at Date Recorded Female 04/04/2021 11:57 AM INCOME TAX ANALYST documented as of this encounter Progress Notes Abhishek Salguero MD - 05/05/2019 10:00 AM CDT Images from the original note were not included. [facility] Nerve Conduction & EMG Report [...] as well (i.e., bilateral chronic L5 and [id number]). Clinical correlation is recommended. Abhsihek Salguero MD Department of Neurology Sensory NCS Nerve / Sites Rec. Site Onset Peak PERMIT SPECIALIST Amp Ref. PP Amp Dist Miguel Ref. [...] 03/20/2022 Virtual Visit Neurology Birgit Whipple MD [address] [place] [address] (Wo rk) documented as of this encounter [...] COMPLETE (05/04/2019) Impressions Alanna Arvizu - 05/04/2019 [facility] ?? Nerve Conduction & EMG [...] unspecified documented in this encounter Care Teams Inclined Railway Operator Relationship Specialty Start Date End Date Chele Mena MD PCP - General Internal Medicine 11/28/12 [facility] [address] [place] [address] Birgit Whipple MD MD Neurology 06/16/14 Dragan Ritter MD MD Urology 06/10/17 [facility] [address] [address] documented as of this encounter
--- OUTSIDE RECORDS SUMMARY | 2022-01-02 08:38 | XMS_ITS | Encounter Summary ---
:1945 Author Organization [place] Address [address] [place] [address]. [place] [address] Care Team Providers Name Role Phone Chele Mena MD Primary Care Provider [phone] Birgit Whipple MD Unavailable Dragan Ritter MD Unavailable Birgit Whipple MD Unavailable Reason for Visit Reason Comments Medication Refill Encounter Details Date Type Department Care Team Description 10/30/2021 Refill [facility] Birgit Whipple, Medication Refill [address] [place], [place] [phone] [place], [place] [address] (Wo rk) Social History Tobacco Use Types Packs/Day Years Used Date Smoking Tobacco: Never Smokeless Tobacco: Never Alcohol Use Standard Drinks/Week Comments No 0 (1 standard drink = 0.6 oz pure alcoho l) Sex Assigned at Date Recorded Female 04/04/2021 11:57 AM DIRECTOR GLOBAL STRATEGIC PUBLISHER SALES documented as of this encounter Plan of Treatment Upcoming Encounters Date Type Specialty Care Team Description 03/20/2022 Virtual Visit Neurology Birgit Whipple MD [address] [place], [place] [phone] (Wo rk) documented as of this encounter Visit Diagnoses Diagnosis Tremor Abnormal involuntary movements documented in this encounter Care Teams Concept Artist Relationship Specialty Start Date End Date Chele Mena PCP - General Internal Medicine 11/28/12 MD Hakan [facility] [address] [place] [address] Birgit Whipple MD Neurology 06/16/14 Dragan Ritter MD Urology 06/10/17 [facility] [address] [address] Birgit Whipple, Assigned Neuroscience 04/03/20 MD Provider [address] [place] [phone] documented as of this encounter
--- OUTSIDE RECORDS SUMMARY | 2022-01-02 08:38 | XMS_ITS | Encounter Summary ---
:1945 Author Organization [place] Address [address] [place] [address]. [place] [address] Care Team Providers Name Role Phone Chele Mena MD Primary Care Provider Birgit Whipple MD Unavailable Dragan Ritter MD Unavailable Reason for Referral (Routine) - Closed Specialty Diagnoses / Procedures Referred By Contact Refer red To Contact Diagnoses Focal epilepsy (H) Birgit Whipple MD Procedures Valproic Acid level [address] [place] [phone] Referral ID Status Reason Start Date Expiration Date Visits Requ ested Visits Authorized [id number] Closed 04/06/2019 04/05/2020 1 1 EMENTATION PROJECT COORDINATOR (Routine) - Closed Specialty Diagnoses / Procedures Referred By Contact Refer red To Contact Diagnoses Focal epilepsy (H) Birgit Whipple MD Procedures Valproic Acid Free [address] [place] [address] 1253 5 Referral ID Status Reason Start Date Expiration Date Visits Requ ested Visits Authorized [id number] Closed 04/06/2019 04/05/2020 1 1 EMENTATION PROJECT COORDINATOR Reason for Visit Reason Comments Follow Up Encounter Details Date Type Department Care Team Description 04/06/2019 Office Visit [facility] Epilepsy Care Sarabjit, Focal epilepsy (H) [address] MD (Primary Dx) [place], [address] [place] [address] [phone] Social History Tobacco Use Types Packs/Day Years Used Date Smoking Tobacco: Never Smokeless Tobacco: Never Alcohol Use Standard Drinks/Week Comments No 0 (1 standard drink = 0.6 oz pure alcoho l) Sex Assigned at Date Recorded Female 04/04/2021 11:57 AM IMPLEMENTATION PROJECT COORDINATOR documented as of this encounter Last Filed Vital Signs Vital Sign Reading Time Taken Comments Blood Pressure 119/55 04/06/2019 10:05 AM IMPLEMENTATION PROJECT COORDINATOR Pulse 67 04/06/2019 10:05 AM IMPLEMENTATION PROJECT COORDINATOR Temperature - - Respiratory Rate - - Oxygen Saturation - - Inhaled Oxygen Concentration - - Weight 122.4 kg (269 lb 12.8 oz) 04/06/2019 10:05 AM IMPLEMENTATION PROJECT COORDINATOR Height - - Body Mass Index 44.9 02/06/2018 9:19 AM IMPLEMENTATION PROJECT COORDINATOR documented in this encounter Progress Notes Birgit Whipple MD - 04/06/2019 10:00 AM CST [facility] Epilepsy Care Progress Note Patient: Kisha Gandara : 1945 Age: [age] year old Today's Office Visit: 04/06/2019 Epilepsy Data: Patient History Primary Epileptologist/Provider: (P) Birgit Whipple M.D. Epilepsy Syndrome: (P) Localization-related epilepsy unspecified Age of Onset: (P) 54 Etiology : (P) Unknown Other Relevant Dx/ Issues: (P) Inpatient evaluations 01/04 and 02/03. 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 History of Depakote-induced hyperammonemia. Tests/Surgery History Last EEG: (P) 01/30/10 Last MRI: (P) 01/10/10 Seizure Record Current Visit Date: (P) 04/06/2019 Previous Visit Date: (P) 12/18 Months since last visit: (P) ~14 months [...] four times daily or as directed. ??? JNYVFEM-[id number] D PO Take by mouth daily ??? [...] mouth 2 times daily ??? nystatin (NYSTOP) 410411 UNIT/GM POWD APPLY 1 APPLICATION TOPICALLY TWICE DAILY. ??? [place]-3 Fatty Acids (FISH OIL PO) ??? oxybutynin [...] findings, impression and plan. Birgit Whipple MD EMENTATION PROJECT COORDINATOR documented in this encounter Plan of Treatment Upcoming Encounters Date Type Specialty Care Team Description 03/20/2022 Virtual Visit Neurology Birgit Whipple MD [address] [place] [address] (Wo rk) Scheduled Orders Name Type Priority [...] epilepsy documented in this encounter Care Teams Capacity Management Specialist Relationship Specialty Start Date End Date Chele Mena MD PCP - General Internal Medicine 11/28/12 [facility] [address] [place] [address] Birgit Whipple MD MD Neurology 06/16/14 Dragan Ritter MD MD Urology 06/10/17 [facility] [address] [address] documented as of this encounter
--- OUTSIDE RECORDS SUMMARY | 2022-01-02 08:38 | XMS_ITS | Encounter Summary ---
:1945 Author Organization [place] Address [address] [place] [address]. [place] [address] Care Team Providers Name Role Phone Chele Mena MD Primary Care Provider Birgit Whipple MD Unavailable Dragan Ritter MD Unavailable Birgit Whipple MD Unavailable Reason for Visit Reason Comments Medication Refill PRIMIDONE 250 MG TABLET Encounter Details Date Type Department Care Team Description 04/08/2021 Refill [facility] Sarabjit Medication Refill [address] (PRIMIDONE 250 MG [address] [place]) [place] [phone] (Wo rk) Social History Tobacco Use Types Packs/Day Years Used Date Smoking Tobacco: Never Smokeless Tobacco: Never Alcohol Use Standard Drinks/Week Comments No 0 (1 standard drink = 0.6 oz pure alcoho l) Sex Assigned at Date Recorded Female 04/04/2021 11:57 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 - Follow-up in 1 year ?? AGE SOLUTIONS ARCHITECT documented in this encounter Plan of Treatment Upcoming Encounters Date Type Specialty Care Team Description 03/20/2022 Virtual Visit Neurology Birgit Whipple MD [address] [place] [phone] (Wo rk) documented as of this encounter Visit Diagnoses Diagnosis Essential tremor Essential and other specified forms of t remor documented in this encounter Care Teams Academic Specialist Relationship Specialty Start Date End Date Chele Mena PCP - General Internal Medicine 11/28/12 MD Hakan [facility] [address] [place] [address] Birgit Whipple MD Neurology 06/16/14 Dragan Ritter MD Urology 06/10/17 [facility] [address] [address] Birgit Whipple, Assigned Neuroscience 04/03/[address] [place] [phone] documented as of this encounter
--- OUTSIDE RECORDS SUMMARY | 2022-01-02 08:38 | XMS_ITS | Encounter Summary ---
:1945 Author Organization [place] Address [address] [place] [address]. 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 documented as of this encounter Plan of Treatment Upcoming Encounters Date Type Specialty Care Team Description 03/20/2022 Virtual Visit Neurology Birgit Whipple MD [address] [place] [address] (Wo rk) documented as of this encounter Visit Diagnoses Not on filedocumented in this encounter Care Teams Treasury Associate Relationship Specialty Start Date End Date Anastasia Menaolph PCP - General Internal Medicine 11/28/12 MD Hakan [facility] [address] [place] [address] Birgit Whipple MD Neurology 06/16/14 Dragan Ritter MD Urology 06/10/17 [facility] [address] [facility] [id number] [place] [address] [id number] Birgit Whipple, Assigned Neuroscience 04/03/20 MD Provider [address] [place] [phone] documented as of this encounter
--- OUTSIDE RECORDS SUMMARY | 2022-01-02 08:38 | XMS_ITS | Encounter Summary ---
:1945 Author Organization [place] Address [address] [place] [address]. [place] [address] Care Team Providers Name Role Phone Chele Mena MD Primary Care Provider Birgit Whipple MD Unavailable Dragan Ritter MD Unavailable Birgit Whipple MD Unavailable Reason for Visit Reason Comments Follow Up Encounter Details Date Type Department Care Team Description 04/11/2021 Virtual Visit [facility] Deepti Whipple (Primary Dx); [address] MD 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 (H); [place], [address] [facility] Focal epilepsy (H); [place], [place] Localizat ion-related epilepsy (H) [address] [phone] Social History Tobacco Use Types Packs/Day Years Used Date Smoking Tobacco: Never Smokeless Tobacco: Never Alcohol Use Standard Drinks/Week Comments No 0 (1 standard drink = 0.6 oz pure alcoho l) Sex Assigned at Date Recorded Female 04/04/2021 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 How would you like to obtain your AVS? MyChart If the video visit is dropped, the invitation should be resent by: Text to cell phone: [phone] Will anyone else be joining your video visit? Video Start Time: 12:12 Video-Visit Details Type of service: Video Visit Video End Time: 12:35 Originating Location (pt. Location): Home Distant Location (provider location): [facility] Platform used for Video Visit: [facility] Progress Note Patient: Kisha Gandara : 1945 Age: [age] year old Today's Virtual Visit: 04/11/2021 Epilepsy Data: Patient History Primary Epileptologist/Provider: (P) Birgit Whipple M.D. Epilepsy Syndrome: (P) Localization-related epilepsy unspecified Age of Onset: (P) 54 Etiology ??: (P) Unknown Other Relevant Dx/ Issues: (P) Inpatient evaluations 01/04 and 02/03. 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 [...] four times daily or as directed. ??? [id number]-[id number] D PO Take by mouth daily ??? Cholecalciferol (VITAMIN D3) 1000 units CAPS 1,000 capsules ??? clotrimazole (LOTRIMIN) 1 % cream Apply topically 2 times daily as needed ??? divalproex sodium extended-release (DEPAKOTE ER) 250 MG 24 hr tablet Take 3 tablets (750 mg) by mouth 2 times daily - Oral(Due for office visit before next refill,Please call [phone] to schedule) Thank you 540 tablet 3 [...] Vitamin (DAILY MULTIVITAMIN PO) ??? nystatin (NYSTOP) 225642 UNIT/GM POWD APPLY 1 APPLICATION TOPICALLY TWICE DAILY. ??? [place]-3 Fatty Acids (FISH OIL PO) ??? pregabalin [...] created in part by the use of [employer]halogy voice recognition system. Inadvertent grammaticalerrors and typographical errors may still exist. Birgit Whipple MD ESS CONSULTANT documented in this encounter Plan of Treatment Upcoming Encounters Date Type Specialty Care Team Description 03/20/2022 Virtual Visit Neurology Birgit Whipple MD [address] [place] [address] (Wo rk) Scheduled Orders Name Type Priority [...] documented in this encounter Care Teams Pipe Organ Builder Relationship Specialty Start Date End Date Chele Mena PCP - General Internal Medicine 11/28/12 MD Hakan [facility] [address] [place] [address] Birgit Whipple MD Neurology 06/16/14 Dragan Ritter MD Urology 06/10/17 [facility] [address] [id number] Birgit Whipple, Assigned Neuroscience 04/03/[address] [place] [address] documented as of this encounter
--- OUTSIDE RECORDS SUMMARY | 2022-01-02 08:38 | XMS_ITS | Encounter Summary ---
:1945 Author Organization [place] Address [address] [place] [address]. [place] [address] Care Team Providers Name Role Phone Chele Mena MD Primary Care Provider [phone] Birgit Whipple MD Unavailable Dragan Ritter MD Unavailable Reason for Visit Reason Onset Date Comments Refill Request 09/14/2019 Encounter Details Date Type Department Care Team Description 09/14/2019 Refill [facility] Birgit Whipple, Refill Request [address] MD [address] [place] [phone] [place] [address] (Wo rk) Social History Tobacco Use Types Packs/Day Years Used Date Smoking Tobacco: Never Smokeless Tobacco: Never Alcohol Use Standard Drinks/Week Comments No 0 (1 standard drink = 0.6 oz pure alcoho l) Sex Assigned at Date Recorded Female 04/04/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 Last Written Prescription Date: 03/19/2019 Last Fill Quantity: 120, # refills: 5 Last Office Visit : 04/06/2019 Future Office visit: 1 year Routing refill request to provider for review/approval because: controlled substance Telephone Encounter - Willie Mitchell CMA - 09/14/2019 9:37 AM CDT Patient only have two days supply left. documented in this encounter Plan of Treatment Upcoming Encounters Date Type Specialty Care Team Description 03/20/2022 Virtual Visit Neurology Birgit Whipple MD [address] [place] [address] [phone] (Wo rk) documented as of this encounter Visit Diagnoses Diagnosis 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 (H) documented in this encounter Care Teams Senior Gl Accountant Relationship Specialty Start Date End Date Chele Mena MD PCP - General Internal Medicine 11/28/12 [facility] [address] [place] [address] Birgit Whipple MD MD Neurology 06/16/14 Dragan Ritter MD MD Urology 06/10/17 [facility] [address] [facility] S [id number] [place] [address] documented as of this encounter
--- OUTSIDE RECORDS SUMMARY | 2022-01-02 08:38 | XMS_ITS | Encounter Summary ---
:1945 Author Organization [place] Address [address] [place] [address]. [place] [address] Care Team Providers Name Role Phone Chele Mena MD Primary Care Provider [phone] Birgit Whipple MD Unavailable Dragan Ritter MD Unavailable Abhishek Salguero MD Unavailable Reason for Visit Reason Comments Medication Refill pregabalin (LYRICA) 50 MG Encounter Details Date Type Department Care Team Description 03/20/2020 Refill [facility] Sarabjit, Medication Refill [address] (pregabalin (LYRICA) 50 [address] [facility] ) [place] [address] [phone] (Wo rk) Social History Tobacco Use Types Packs/Day Years Used Date Smoking Tobacco: Never Smokeless Tobacco: Never Alcohol Use Standard Drinks/Week Comments No 0 (1 standard drink = 0.6 oz pure alcoho l) Sex Assigned at Date Recorded Female 04/04/2021 11:57 AM 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 WIG HACKLER documented in this encounter Plan of Treatment Upcoming Encounters Date Type Specialty Care Team Description 03/20/2022 Virtual Visit Neurology Birgit Whipple MD 909 [place] [address] (Wo rk) documented as of this encounter Visit Diagnoses Diagnosis 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 (H) Essential tremor Essential and other specified forms of t remor documented in this encounter Care Teams Dockmaster Relationship Specialty Start Date End Date Chele Mena PCP - General Internal Medicine 11/28/12 MD Hakan [facility] [address] [place] [address] Birgit Whipple MD Neurology 06/16/14 Dragan Ritter MD Urology 06/10/17 [facility] [address] [id number] Abhishek Sagluero MD Assigned Neuroscience 12/18/19 04/02/20 909 [place] [address] documented as of this encounter
--- OUTSIDE RECORDS SUMMARY | 2022-01-02 08:39 | XMS_ITS | Encounter Summary ---
:1945 Author Organization [place] Address [address] [place] [address]. 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 documented as of this encounter Plan of Treatment Upcoming Encounters Date Type Specialty Care Team Description 03/20/2022 Virtual Visit Neurology Birgit Whipple MD 9[address] [place], [place] [address] (Wo rk) documented as of this encounter Visit Diagnoses Diagnosis Localization-related epilepsy (H) Localization-related (focal) (partial) e pilepsy and epileptic syndromes with simple partial seizures, without mention of int ractable epilepsy documented in this encounter Care Teams Director Pharmaceutical Relationship Specialty Start Date End Date Chele Mena MD PCP - General Internal Medicine 11/28/12 [facility] [address] [place] [address] Birgit Whipple MD MD Neurology 06/16/14 documented as of this encounter
--- OUTSIDE RECORDS SUMMARY | 2022-01-02 08:39 | XMS_ITS | Encounter Summary ---
:1945 Author Organization [place] Address [address] [place] [address]. 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 DIRECTOR documented as of this encounter Plan of Treatment Upcoming Encounters Date Type Specialty Care Team Description 03/20/2022 Virtual Visit Neurology Birgit Whipple MD [address] [place] [id number] (Wo rk) documented as of this encounter Visit Diagnoses Not on filedocumented in this encounter Care Teams Geodetic Surveyor Relationship Specialty Start Date End Date Chele Mena MD PCP - General Internal Medicine 11/28/12 [facility] [address] [place] [address] Birgit Whipple MD MD Neurology 06/16/14 Dragan Ritter MD MD Urology 06/10/17 [facility] [address] [address] documented as of this encounter
--- OUTSIDE RECORDS SUMMARY | 2022-01-02 08:39 | XMS_ITS | Encounter Summary ---
:1945 Author Organization [place] Address [address] [place] [address]. [place] [address] Care Team Providers Name Role Phone Chele Mena MD Primary Care Provider Birgit Whipple MD Unavailable Dragan Ritter MD Unavailable Reason for Visit Reason Onset Date Comments Medication Refill pregabalin (LYRICA) 50 MG capsule Refill Request 03/18/2019 Refill Request 03/23/2019 Encounter Details Date Type Department Care Team Description 03/16/2019 Telephone [facility] Epilepsy Care Sarabjit, Medication Refill [address] M D (pregabalin (LYRICA) 50 [address] MG capsule); Refill [place], [place] Request; Refill Request [id number] Social History Tobacco Use Types Packs/Day Years Used Date Smoking Tobacco: Never Smokeless Tobacco: Never Alcohol Use Standard Drinks/Week Comments No 0 (1 standard drink = 0.6 oz pure alcoho l) Sex Assigned at Date Recorded Female 04/04/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 UIT DESIGNER Telephone Encounter - Janny Villareal - 03/23/2019 10:46 AM CST Received a f/up faxe re: this prescription request. UIT DESIGNER Telephone Encounter - Surendra George LPN - 03/18/2019 3:58 PM CST called in stating she is almost out of this. Appointment scheduled for 04/06/19. It appears this never made it to the pharmacy. It states the transmission failed. Please resend DWAYNE UIT DESIGNER Telephone Encounter - Nava Edwards RN - 03/16/2019 12:39 PM CST pregabalin (LYRICA) 50 MG capsule Last Written Prescription Date: 02-06-18 Last Fill Quantity: 360, # refills: 3 Last Office Visit : 02-06-18 Future Office visit: 04-17-2019 Routing refill request to provider for review/approval because: Controlled medication Not seen in over a year. Nava Edwards RN UIT DESIGNER documented in this encounter Plan of Treatment Upcoming Encounters Date Type Specialty Care Team Description 03/20/2022 Virtual Visit Neurology Birgit Whipple MD 9 [place] [address] (Wo rk) documented as of this encounter Visit Diagnoses Diagnosis 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 (H) documented in this encounter Care Teams Produce Team Member Relationship Specialty Start Date End Date Chele Mena MD PCP - General Internal Medicine 11/28/12 [facility] [address] [place] [address] Birgit Whipple MD MD Neurology 06/16/14 Dragan Ritter MD MD Urology 06/10/17 [facility] [address] [id number] [place] [address] documented as of this encounter
--- OUTSIDE RECORDS SUMMARY | 2022-01-02 08:39 | XMS_ITS | Encounter Summary ---
:1945 Author Organization [place] Address [address] [place] [address]. [place] [address] Care Team Providers Name Role Phone Chele Mena MD Primary Care Provider [phone] Birgit Whipple MD Unavailable Dragan Ritter MD Unavailable Abhishek Salguero MD Unavailable Birgit Whipple MD Unavailable Encounter Details Date Type Department Care Team Description 04/17/2018 [facility] MD [facility] [place] [address] [place] [address] [place] [address] [place], [place] [id number] Social History Tobacco Use Types Packs/Day Years Used Date Smoking Tobacco: Never Smokeless Tobacco: Never Alcohol Use Standard Drinks/Week Comments No 0 (1 standard drink = 0.6 oz pure alcoho l) Sex Assigned at Date Recorded Female 04/04/2021 11:57 AM 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 documented as of this encounter Plan of Treatment Upcoming Encounters Date Type Specialty Care Team Description 03/20/2022 Virtual Visit Neurology Birgit Whipple MD 909 [place], [place] [id number] (Wo rk) documented as of this encounter Procedures Procedure Name Priority Date/Time Associated Diagnosis Comme nts HEMOGLOBIN A1C Routine 04/17/2018 5:47 AM Results for this MATE CHIEF procedure are i n the results section . documented in this encounter Results (ABNORMAL) Hemoglobin A1c (04/17/2018 5:47 AM MATE CHIEF) Analysis Performed At Patho logist Time Signature Hemoglobin A1C 6.3 (H) 4.2 - 6.1 04/18/2018 HEALTH % 1:23 PM MATE CHIEF [facility] Specimen Anatomical Collection Method / Collection Time Recei es Time (Source) Location / Volume Laterality Blood specimen STRUCTURE OF RIGHT Venipuncture / 04/17/2018 5:47 1:19 (specimen) UPPER LIMB / Unknown AM MATE CHIEF PM MATE CHIEF Unknown [facility]at Fall MD LAB - BLOOD ORDERABLES Performing Organization Address [facility]/State/ZIP Code Phon e Number [facility] [place] [address] [id number] [place] [address] LABORATORY documented in this encounter Visit Diagnoses Not on filedocumented in this encounter Care Teams Gum Puller Relationship Specialty Start Date End Date Chele Mena PCP - General Internal Medicine 11/28/12 MD Hakan [facility] [address] [place] [address] Birgit Whipple MD Neurology 06/16/14 Dragan Ritter MD Urology 06/10/17 [facility] [address] [facility] [place] [address] [address] [place] [address] Abhishek Salguero MD Assigned Neuroscience 12/18/19 04/02/[address] [place] [address] [id number] Birgit Whipple, Assigned Neuroscience 04/03/20 [place] Provider [address] [place] [address] [id number] documented as of this encounter
--- OUTSIDE RECORDS SUMMARY | 2022-01-02 08:39 | XMS_ITS | Encounter Summary ---
:1945 Author Organization [place] Address [address] [place] [address]. [place] [address] Care Team Providers Name Role Phone Chele Mena MD Primary Care Provider [phone] Birgit Whipple MD Unavailable Dragan Ritter MD Unavailable Abhishek Salguero MD Unavailable Birgit Whipple MD Unavailable Encounter Details Date Type Department Care Team Description 04/16/2018 Records - [facility] MD [facility] [place] [address] [place] [address] [place] [address] [place], [place] [id number] Social History Tobacco Use Types Packs/Day Years Used Date Smoking Tobacco: Never Smokeless Tobacco: Never Alcohol Use Standard Drinks/Week Comments No 0 (1 standard drink = 0.6 oz pure alcoho l) Sex Assigned at Date Recorded Female 04/04/2021 11:57 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 documented as of this encounter Plan of Treatment Upcoming Encounters Date Type Specialty Care Team Description 03/20/2022 Virtual Visit Neurology Birgit Whipple MD [address] [place] [address] (Wo rk) documented as of this encounter Procedures Procedure Name Priority Date/Time Associated Diagnosis Comme nts BASIC METABOLIC Routine 04/17/2018 5:47 AM Result s for this PANEL CARE WORKER procedure are i n the results section. documented in this encounter Results (ABNORMAL) Basic metabolic panel (04/17/2018 5:47 AM CARE WORKER) Analysis Performed At Patho logist Time Signature Sodium 133 (L) 136 - 145 04/17/2018 HEALTH mmol/L 3:26 PM [facility] Potassium 4.7 3.5 - 5.0 04/17/2018 HEALTH mmol/L 3:26 PM [facility] Chloride 98 98 - 107 04/17/2018 HEALTH mmol/L 3:26 PM LABORATORY Carbon Dioxide 24 22 - 31 04/17/2018 HEALTH (CO2) mmol/L 3:26 PM [facility] Anion Gap 11 5 - 18 04/17/2018 HEALTH mmol/L 3:26 PM LABORATORY Glucose 131 (H) 70 - 125 04/17/2018 HEALTH mg/dL 3:26 PM [facility] Calcium 9.5 8.5 - 10.5 04/17/2018 HEALTH mg/dL 3:26 PM LABORATORY Urea Nitrogen 12 8 - 28 04/17/2018 HEALTH mg/dL 3:26 PM [facility] Creatinine 0.69 0.60 - 04/17/2018 M HEALTH 1.10 mg/dL 3:26 PM [facility] GFR Estimate If >60 >60 04/17/2018 HEALTH Black mL/min/1.7 3:[address] LABORATORY GFR Estimate >60 >60 04/17/2018 M HEALTH mL/min/1.7 3:26 PM CARE WORKER [facility] 3[facility] Specimen Anatomical Collection Method / Collection Time Recei es Time (Source) Location / Volume Laterality Blood specimen STRUCTURE OF RIGHT Venipuncture / 04/17/2018 5:47 2:22 (specimen) UPPER LIMB / Unknown AM CARE WORKER PM CARE WORKER Unknown Narrative [facility] - 04/17/2018 3:26 PM CARE WORKER Fasting Glucose reference range is 70-99 mg/dL per [place] [employer] (ADA) arnaldo juan. [facility] Fall MD LAB - BLOOD ORDERABLES Performing Organization Address City/State/ZIP Code Phon e Number [facility] [place] [address] [address] [facility] [address] [place] [address], [facility] documented in this encounter Visit Diagnoses Not on filedocumented in this encounter Care Teams Technical Information Specialist Relationship Specialty Start Date End Date Chele Mena PCP - General Internal Medicine 11/28/12 MD Hakan [facility] [address] [place] [address] Birgit Whipple MD Neurology 06/16/14 Dragan Ritter MD Urology 06/10/17 [facility] [address] [address] Abhishek Salguero MD Assigned Neuroscience 12/18/19 04/02/[address] [place] [address] [id number] Birgit Whipple, Janel Neuroscience 04/03/[address] [phone] documented as of this encounter
--- OUTSIDE RECORDS SUMMARY | 2022-01-02 08:39 | XMS_ITS | Encounter Summary ---
:1945 Author Organization [place] Address [address] [place] [address]. 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 documented as of this encounter Plan of Treatment Upcoming Encounters Date Type Specialty Care Team Description 03/20/2022 Virtual Visit Neurology Birgit Whipple MD [address] [place], [place] [address] (Wo rk) documented as of this encounter Visit Diagnoses Diagnosis Localization-related epilepsy (H) Localization-related (focal) (partial) 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
--- OUTSIDE RECORDS SUMMARY | 2022-01-02 08:39 | XMS_ITS | Encounter Summary ---
:1945 Author Organization [place] Address [address] [place] [address]. [place] [address] Care Team Providers Name Role Phone Chele Mena MD Primary Care Provider Birgit Whipple MD Unavailable Dragan Ritter MD Unavailable Abhishek Salguero MD Unavailable Birgit Whipple MD Unavailable Encounter Details Date Type Department Care Team Description 04/16/2018 Records - [facility] MD [facility] [place] [address] [place] [address] [place] [address] [place], [place] [id number] Social History Tobacco Use Types Packs/Day Years Used Date Smoking Tobacco: Never Smokeless Tobacco: Never Alcohol Use Standard Drinks/Week Comments No 0 (1 standard drink = 0.6 oz pure alcoho l) Sex Assigned at Date Recorded Female 04/04/2021 11:57 AM 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 documented as of this encounter Plan of Treatment Upcoming Encounters Date Type Specialty Care Team Description 03/20/2022 Virtual Visit Neurology Birgit Whipple MD [address] [place] [address] (Wo rk) documented as of this encounter Procedures Procedure Name Priority Date/Time Associated Diagnosis Comme nts CBC WITH PLATELETS Routine 04/17/2018 5:47 AM Res ults for this GLOBAL MOBILITY SPECIALIST procedure are i n the results section. documented in this encounter Results (ABNORMAL) CBC with platelets (04/17/2018 5:47 AM GLOBAL MOBILITY SPECIALIST) [facility] Method Time Signature WBC 10.8 4.0 - 11.0 04/17/2018 HEALTH thou/uL 2:38 PM GLOBAL MOBILITY SPECIALIST [facility] RBC Count 3.56 (L) 3.80 - 04/17/2018 HEALTH 5.40 2:38 PM GLOBAL MOBILITY SPECIALIST [facility] Hemoglobin 10.5 (L) 12.0 - 04/17/2018 HEALTH 16.0 g/dL 2:38 PM GLOBAL MOBILITY SPECIALIST [facility] Hematocrit 34.6 (L) 35.0 - 04/17/2018 HEALTH 47.0 % 2:38 PM [facility] MCV 97 80 - 100 04/17/2018 HEALTH fL 2:38 PM [facility] MCH 29.5 27.0 - 04/17/2018 HEALTH 34.0 pg 2:38 PM GLOBAL MOBILITY SPECIALIST CertusOH[facility]HE[facility]ITALappM[facility] AmericanflatS LABORATORY MCHC 30.3 (L) 32.0 - 04/17/2018 HEALTH 36.0 g/dL 2:38 PM GLOBAL MOBILITY SPECIALIST CertusOH[facility]HE[facility]ITALapp[facility] RDW 15.2 (H) 11.0 - 04/17/2018 HEALTH 14.5 % 2:38 PM GLOBAL MOBILITY SPECIALIST [facility] Platelet Count 538 (H) 140 - 440 04/17/2018 [facility] thou/uL 2:38 PM [facility] Mean Platelet 9.6 8.5 - 12.5 04/17/2018 [facility] Volume fL 2:38 PM GLOBAL MOBILITY SPECIALIST [facility] Specimen Anatomical Collection Method / Collection Time Recei es Time (Source) Location / Volume Laterality Blood specimen STRUCTURE OF RIGHT Venipuncture / 04/17/2018 5:47 2:15 (specimen) UPPER LIMB / Unknown AM GLOBAL MOBILITY SPECIALIST PM GLOBAL MOBILITY SPECIALIST Unknown [facility] Fall MD LAB - BLOOD ORDERABLES Performing Organization Address City/State/ZIP Code Phon e [place] [address] [address] [facility] documented in this encounter Visit Diagnoses Not on filedocumented in this encounter Care Teams Car Dropper Relationship Specialty Start Date End Date Chele Mena PCP - General Internal Medicine 11/28/12 MD Hakan [facility] [address] [place] [address] Birgit Whipple MD Neurology 06/16/14 Dragan Ritter MD Urology 06/10/17 [facility] [address] [address] Abhishek Salguero MD Assigned Neuroscience 12/18/19 04/02/[address] [place] [phone] Birgit Whipple, Janel Neuroscience 04/03/[address] [id number] documented as of this encounter
--- OUTSIDE RECORDS SUMMARY | 2022-01-02 08:39 | XMS_ITS | Encounter Summary ---
:1945 Author Organization [place] Address [address] [place] [address]. [place] [address] Care Team Providers Name Role Phone Chele Mena MD Primary Care Provider [phone] Birgit Whipple MD Unavailable Reason for Visit Reason Onset Date Comments Medication Question 01/30/2017 Dispensing pharmacy calling in Encounter Details Date Type Department Care Team Description 01/30/2017 [facility]phone [facility] Mitch Tobar RN Medication Question [address], (Dis [facility] [address] (Work) calling in) [place], [place] [phone] [address] (Fax) [phone] Social History Tobacco Use Types Packs/Day Years Used Date Smoking Tobacco: Never Smokeless Tobacco: Never Sex Assigned at Date Recorded Female 04/04/2021 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 PROOF REPRODUCER Telephone Encounter - Mitch Tobar, RN - 01/30/2017 3:15 PM CST ----- Message from Francine Krueger sent at 01/30/2017 3:02 PM TYPE PROOF REPRODUCER ----- Caller: Catherine Relationship to Patient: [facility] Call Back Number: Reason for Call: Pharmacy is calling to discuss a possible reaction with Primidone & Divalproex.Pharmacy is holding medication until approved by our office. Thank you, Francine PROOF REPRODUCER documented in this encounter Plan of Treatment Upcoming Encounters Date Type Specialty Care Team Description 03/20/2022 Virtual Visit Neurology Birgit Whipple MD [address] [place] [phone] (Wo rk) documented as of this encounter Visit Diagnoses Not on filedocumented in this encounter Care Teams Chemical Compounder Relationship Specialty Start Date End Date Chele Mena MD PCP - General Internal Medicine 11/28/12 [facility] [address] [place] [address] Birgit Whipple MD MD Neurology 06/16/14 documented as of this encounter
--- OUTSIDE RECORDS SUMMARY | 2022-01-02 08:39 | XMS_ITS | Encounter Summary ---
:1945 Author Organization [facility] Address [address] [place] [address]. [place] [address] Care Team Providers Name Role Phone Chele Mena MD Primary Care Provider Birgit Whipple MD Unavailable Dragan Ritter MD Unavailable Reason for Visit Reason Comments Seizures 6 month follow up Encounter Details Date Type Department Care Team Description 06/10/2017 Office Visit [facility] Sarabjit, Essential tremor; [address] Angela Genao MD Localization-related epilepsy (H); [place], [address] 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 Epilepsy Syndrome: (P) Localization-related epilepsy unspecified Age of Onset: (P) 54 Etiology : (P) Unknown Other Relevant Dx/ Issues: (P) Inpatient evaluations 01/04 and 02/03. [facility] consulation 12/04 for nonconvulsive status epilepticus. History [...] 5 mg by mouth ??? nystatin (NYSTOP) 528453 UNIT/GM POWD APPLY 1 APPLICATION TOPICALLY TWICE [...] UNIT/ML PEN Inject Subcutaneous At Bedtime ??? [place]-3 Fatty Acids (FISH OIL PO) ??? Multiple [...] MG capsule Take by mouth daily ??? [id number] D PO Take by mouth daily ??? [...] minutes and during this time counseling was [id number]% of the visit time. 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
--- OUTSIDE RECORDS SUMMARY | 2022-01-02 08:39 | XMS_ITS | Encounter Summary ---
:1945 Author Organization [place] Address [address] [place] [address]. 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 documented as of this encounter Plan of Treatment Upcoming Encounters Date Type Specialty Care Team Description 03/20/2022 Virtual Visit Neurology Birgit Whipple MD [address] [place], [place] [phone] (Wo rk) documented as of this encounter Visit Diagnoses Diagnosis 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 (H) documented in this encounter Care Teams Ultrasound Tester Relationship Specialty Start Date End Date Chele Mena MD PCP - General Internal Medicine 11/28/12 [facility] [address] [place] [address] Birgit Whipple MD MD Neurology 06/16/14 documented as of this encounter
--- OUTSIDE RECORDS SUMMARY | 2022-01-02 08:39 | XMS_ITS | Encounter Summary ---
:1945 Author Organization [place] Address [address] [place] [address]. 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 [address] [place] [address] Birgit Whipple MD MD Neurology 06/16/14 Dragan Ritter MD MD Urology 06/10/17 [facility] [address] [id number] documented as of this encounter
--- OUTSIDE RECORDS SUMMARY | 2022-01-02 08:39 | XMS_ITS | Encounter Summary ---
:1945 Author Organization [facility] Address [address] [place] [address]. [place] [address] Care Team Providers Name Role Phone Chele Mena MD Primary Care Provider Birgit Whipple MD Unavailable Dragan Ritter MD Unavailable Reason for Visit Reason Comments Medication Refill Encounter Details Date Type Department Care Team Description 02/01/2018 Refill [facility] Birgit Whipple, Medication Refill [address] MD [address] [place], [place] [phone] [place] [address] (Wo rk) Social History Tobacco Use Types Packs/Day Years Used Date Smoking Tobacco: Never Smokeless Tobacco: Never Alcohol Use Standard Drinks/Week Comments No 0 (1 standard drink = 0.6 oz pure alcoho l) Sex Assigned at Date Recorded Female 04/04/2021 11:57 AM 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 Fabian. ETING FINANCE MANAGER documented in this encounter Plan of Treatment Upcoming Encounters Date Type Specialty Care Team Description 03/20/2022 Virtual Visit Neurology Birgit Whipple MD [address] [place] [phone] (Wo rk) documented as of this encounter Visit Diagnoses Not on filedocumented in this encounter Care Teams Intervention Teacher Relationship Specialty Start Date End Date Chele Mena MD PCP - General Internal Medicine 11/28/12 [facility] [address] [place] [address] Birgit Whipple MD MD Neurology 06/16/14 Dragan Ritter MD MD Urology 06/10/17 [facility] [address] [facility] [address] [address] documented as of this encounter
--- OUTSIDE RECORDS SUMMARY | 2022-01-02 08:39 | XMS_ITS | Encounter Summary ---
:1945 Author Organization [facility] Address [address] [place] [address]. [place] [address] Care Team Providers Name Role Phone Chele Mena MD Primary Care Provider [phone] Birgit Whipple MD Unavailable Dragan Ritter MD Unavailable Reason for Visit Reason Comments Medication Refill PRIMIDONE 250 MG TABLET Encounter Details Date Type Department Care Team Description 03/28/2019 Refill [facility] Sarabjit, Medication Refill [address] M D (PRIMIDONE 250 MG [address] TABLET) [place] [address] [id number] (Wo rk) Social History Tobacco Use Types Packs/Day Years Used Date Smoking Tobacco: Never Smokeless Tobacco: Never Alcohol Use Standard Drinks/Week Comments No 0 (1 standard drink = 0.6 oz pure alcoho l) Sex Assigned at Date Recorded Female 04/04/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 documented as of this encounter Miscellaneous Notes [...] Bullard RN Central Triage Red Flags/Med Refills INE PRESSER documented in this encounter Plan of Treatment Upcoming Encounters Date Type Specialty Care Team Description 03/20/2022 Virtual Visit Neurology Birgit Whipple MD [address] [place] [phone] (Wo rk) documented as of this encounter Visit Diagnoses Diagnosis Essential tremor Essential and other specified forms of t remor documented in this encounter Care Teams Fluid Power Mechanic Relationship Specialty Start Date End Date Chele Mena MD PCP - General Internal Medicine 11/28/12 [facility] [address] [place] [address] Birgit Whipple MD MD Neurology 06/16/14 Dragan Ritter MD MD Urology 06/10/17 [facility] [address] [address] documented as of this encounter
--- OUTSIDE RECORDS SUMMARY | 2022-01-02 08:39 | XMS_ITS | Encounter Summary ---
:1945 Author Organization [facility] Address [address] [place] [address]. [place] [address] Care Team Providers Name Role Phone Chele Mena MD Primary Care Provider [phone] Birgit Whipple MD Unavailable Dragan Ritter MD Unavailable Reason for Visit Reason Comments RECHECK Encounter Details Date Type Department Care Team Description 02/06/2018 Office Visit [facility] Sarabjit, Localization-related epileps y (H); [address] MD 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 (H); [place], [address] [place] [id number] Social History Tobacco Use Types Packs/Day Years Used Date Smoking Tobacco: Never Smokeless Tobacco: Never Alcohol Use Standard Drinks/Week Comments No 0 (1 standard drink = 0.6 oz pure alcoho l) Sex Assigned at Date Recorded Female 04/04/2021 11:57 AM SUBCONTRACTS MANAGER documented as of this encounter Last Filed Vital Signs Vital Sign Reading Time Taken Comments Blood Pressure 113/62 02/06/2018 9:19 AM SUBCONTRACTS MANAGER Pulse 72 02/06/2018 9:19 AM SUBCONTRACTS MANAGER Temperature 36.4 ??C (97.5 ??F) 02/06/2018 9:19 AM SUBCONTRACTS MANAGER Respiratory Rate - - Oxygen Saturation - - Inhaled Oxygen Concentration - - Weight 123.1 kg (271 lb 6.4 oz) 02/06/2018 9:19 AM SUBCONTRACTS MANAGER Height 165.1 cm (5' 5) 02/06/2018 9:19 AM SUBCONTRACTS MANAGER Body Mass Index 45.16 02/06/2018 9:19 AM SUBCONTRACTS MANAGER documented in this encounter Patient Instructions Patient InstructionsLoida Li MA - 02/06/2018 9:30 AM CST Preventive Care: Colorectal Cancer Screening: During our visit today, we discussed that it is recommended you receivecolorectal cancer screening. Please call or make an appointment with your primary care provider to discuss this. You may also call the [facility] scheduling line ([phone]) to set up a colonoscopy appointment. ONTRACTS MANAGER documented in this encounter Progress Notes Birgit Whipple MD - 02/06/2018 9:30 AM CST [facility] [place] Note Patient: Kisha Gandara : 1945 Age: [age] year old Today's Office Visit: 02/06/2018 Epilepsy Data: Patient History Primary Epileptologist/Provider: (Colette) Birgit Whipple M.D. Epilepsy Syndrome: (P) Localization-related epilepsy unspecified Age of Onset: (P) 54 Etiology : (P) Unknown Other Relevant Dx/ Issues: (P) [facility]. History [...] her primidone, but not that bothersome. Neuropathy: Lyrica is somewhat helping with tingling and pain, [...] four times daily or as directed. ??? YCBYNSV-WNXZLQZLC-HNCOSSH D PO Take by mouth daily ??? [...] Bedtime ??? Insulin Pen Needle (PEN NEEDLES 3) 31G X 5 MM MISC ??? LANsoprazole [...] mouth 2 times daily ??? nystatin (NYSTOP) 965003 UNIT/GM POWD APPLY 1 APPLICATION TOPICALLY TWICE DAILY. ??? [place]-3 Fatty Acids (FISH OIL PO) ??? oxybutynin [...] minutes and during this time counseling was otwrel02% of the visit time. 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 [address] [address] documented as of this encounter
--- OUTSIDE RECORDS SUMMARY | 2022-01-02 08:39 | XMS_ITS | Encounter Summary ---
:1945 Author Organization [facility] Address [address] [place] [address]. [place] [address] Care Team Providers Name Role Phone Chele Mena MD Primary Care Provider Birgit Whipple MD Unavailable Reason for Visit Reason Comments Seizures 6 MONTH FOLLOW-UP Encounter Details Date Type Department Care Team Description 08/30/2016 Office Visit [facility] Sarabjit Diabetic polyneuropathy asso ciated with diabetes mellitus due to underlying condition (H) (Primary Dx); [address]ao MD Essential tremor; [place], [address] [facility] Localization-related epilepsy (H) [place] [id number] Social History Tobacco Use Types Packs/Day Years Used Date Smoking Tobacco: Never Smokeless Tobacco: Never Sex Assigned at Date Recorded 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 Continue other medications as before. documented in this encounter Progress Notes Birgit Whipple MD - 08/30/2016 11:30 AM CDT [facility] [place] Note Patient: Sahshi Armstrong : 1945 Age: [age] year old Today's Office Visit: 08/30/2016 Epilepsy Data: Patient History Primary Epileptologist/Provider: (P) Birgit Whipple M.D. Epilepsy Syndrome: (P) Localization-related epilepsy unspecified Age of Onset: (P) 54 Etiology : (P) Unknown Other Relevant Dx/ Issues: (P) Inpatient evaluations 01/04 and 02/03. [facility] consulation 12/04 for nonconvulsive status epilepticus. History of Depakote-induced hyperammonemia. Tests/Surgery History Last EEG: (P) 01/30/10 Last MRI: (P) 01/10/10 Seizure Record Current Visit Date: (P) 08/30/16 Previous Visit Date: (P) 02/21/16 Months since last visit: (P) 6.28 Seizure Type 1: (P) Complex partial seizures unspecified Seizure Type 2: (P) Tonic-clonic seizures History of Present Illness: The patient is accompanied by her . She did not have any seizures that she or her were aware of. She occasionally has episodes that she is slow to respond, or her needs to repeattwice so she responds, but she says sometimes this is because she cannot hear well, especially if hecalls her or say something from the kitchen, when she is watching TV. She is hard to hearing and uses hearing aid. Once in a while she uses wrong words when she talks. Her denies any episodes with overt LOC or abnormal involuntary movements. She is taking Depakote 750 mg bid. Her tremors are better on Primidone. Sometimes her noted slight tremors in her hands when they are at the dinner table, and if she puts her arm down, it stops. She is taking primidone 250 mg atnight. She has some pins and needles in her feet, the burning sensation and pain improved on Lyrica. She istaking 50 mg TID. Current Outpatient Prescriptions Medication Sig Dispense Refill ??? pregabalin (LYRICA) 50 MG capsule Take 50 mg by mouth 3 times daily ??? divalproex (DEPAKOTE ER) 250 MG 24 hr tablet TAKE 3 TABLETS (750 MG) BY MOUTH 2 TIMES DAILY 180 tablet 2 ??? primidone (MYSOLINE) 250 MG tablet TAKE ONE TABLET BY MOUTH NIGHTLY AT BEDTIME 30 tablet 3 ??? ACETAMINOPHEN PO ??? acetaminophen-codeine (TYLENOL #3) 300-30 MG per tablet Take 1-2 tablets by mouth daily as needed for moderate pain ??? blood glucose monitoring (SOFTCLIX) lancets 1 [...] UNIT/ML PEN Inject Subcutaneous At Bedtime ??? amoxicillin (AMOXIL) 500 MG capsule Take 2,000 mg by mouth daily TAKE BEFORE DENTIST APPOINTMENTS ??? clotrimazole (LOTRIMIN) 1 % cream Apply topically 2 times daily as needed ??? naproxen sodium 220 MG capsule Take 220 mg by mouth 2 times daily ??? LANsoprazole (PREVACID) 30 MG capsule Take by mouth daily ??? FOFIHIH-PRIWFJSAY-COJQDDB D PO Take by mouth daily ??? Ascorbic Acid (VITAMIN C PO) ??? [place]-3 Fatty Acids (FISH OIL PO) ??? Multiple Vitamin (DAILY MULTIVITAMIN PO) ??? aspirin 81 MG tablet Take by mouth daily ??? simvastatin (ZOCOR) 20 MG tablet Take by mouth daily ??? metoprolol (LOPRESSOR) 50 MG tablet Take 50 mg by mouth 2 times daily ??? lisinopril (PRINIVIL,ZESTRIL) 10 MG tablet Take 10 mg by mouth 2 times daily Perceived AED Side Effects: sleepiness Medication Notes: AED Medication Compliance: compliant most of the time Using a pill box: Yes Results for SHASHI ARMSTRONG ( ) as of 08/30/2016 12:00 Ref. Range 02/21/2016 10:37 Valproic Acid Level Latest Ref Range: 50 - 100 mg/L 77 Review of Systems: Lethargy / Tiredness: No Nausea / Vomiting: No Double Vision: No Sleepiness: Yes Depression: No Slowed Cognitive Function: Yes Memory Problems: No Poor Balance: Yes Dizziness: No Appetite Changes: No Blurred Vision: No Sleep Changes: No Behavioral Changes: No Skin: negative Respiratory: No shortness of breath and No cough Cardiovascular: negative Have you experienced a traumatic fall since your last visit: NO Exam: BP 125/51 Pulse 79 Ht 5' 6.93 (170 cm) Wt 274 lb 3.2 oz (124.4 kg) ? No BMI 43.04 kg/m2 Wt Readings from Last 5 Encounters: 08/30/16 274 lb 3.2 oz (124.4 kg) 02/21/16 262 lb 9.6 oz (119.1 kg) 08/16/15 259 lb (117.5 kg) 02/08/15 260 lb 3.2 oz (118 kg) 07/27/14 266 lb 9.6 oz (120.9 kg) General Appearance: Alert, awake, cooperative and [...] have any known seizures since last visit. - Continue Depakote 750 mg bid - Obtain Depakote level today 2. Essential tremors: Is much better. She is taking primidone 250 mg in the evening - Continue primidone 250 mg in the evening 3. Diabetic neuropathy: She says her sugars are better controlled ands her PCP was satisfied with her numbers. Burning sensation and pain has improved much Still has some tingling in her feet, especially when she needs to stand up for some time on her feet. - Increase Lyrica to 100-50-50 mg per day. - RTC in 6 months As described above, I met with the patient for 25 minutes and during this time counseling was greater than 50% of the visit time. Birgit Whipple MD documented in this encounter Plan of Treatment Upcoming Encounters Date Type Specialty Care Team Description 03/20/2022 Virtual Visit Neurology Birgit Whipple MD [address] [place] [address] (Wo rk) documented as of this encounter Procedures Procedure Name Priority Date/Time Associated Diagnosis Comme nts VALPROIC ACID Routine 08/30/2016 12:01 PM Localization-related Results for this CDT epilepsy (H) procedure are i n the results section . documented in this encounter Results Valproic Acid level (08/30/2016 12:01 PM CDT) P athologist Signature Valproic Acid 68 50 - 100 [facility] Level mg/L [facility] Specimen Anatomical Collection Method Collection Time Receive d Time (Source) Location / / Volume Laterality Blood specimen VENOUS BLOOD / 08/30/2016 12:01 017 6:51 (specimen) Unknown PM CDT PM CDT Birgit Whipple MD LAB - BLOOD ORDERABLES Performing Organization Address City/State/ZIP Code Phon e Number [facility] [address] [place], [place] [id number] [place] [address] documented in this encounter Visit Diagnoses Diagnosis 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 (H) - Primary Essential tremor Essential and other specified forms of t remor Localization-related epilepsy (H) Localization-related (focal) (partial) e pilepsy and epileptic syndromes with simple partial seizures, without mention of int ractable epilepsy documented in this encounter Care Teams Primary Teacher Relationship Specialty Start Date End Date Chele Mena MD PCP - General Internal Medicine 11/28/12 [facility] [address] [place] [address] Birgit Whipple MD MD Neurology 06/16/14 documented as of this encounter
--- OUTSIDE RECORDS SUMMARY | 2022-01-02 08:40 | XMS_ITS | Encounter Summary ---
:1945 Author Organization [facility] Address [address] [place] [address]. 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 documented in this encounter Results COLONOSCOPY (09/05/2007 9:35 AM CDT) [facility] Method Time Signature COLONOSCOPY Endoscopy RADIOLOGY RESULTS [...] oxygen ? saturations were monitored continuously. The [facility]-[id number] ? #[id number] was introduced through the anus and advanced [...]
--- OUTSIDE RECORDS SUMMARY | 2022-01-02 08:40 | XMS_ITS | Encounter Summary ---
:1945 Author Organization [facility] Address [address] [place] [address]. 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 Plan of Treatment Upcoming Encounters Date Type Specialty Care Team Description 03/20/2022 Virtual Visit Neurology Birgit Whipple MD [address] [place], [place] [address] (Wo rk) documented as of this encounter Visit Diagnoses Diagnosis Localization-related (focal) (partial) e pilepsy and epileptic syndromes with complex partial seizures, without mention of int ractable epilepsy documented in this encounter Care Teams Auto Wheel Alignment Specialist Relationship Specialty Start Date End Date Chele Mena MD PCP - General Internal Medicine 11/28/12 [facility] [address] [place] [address] documented as of this encounter
--- OUTSIDE RECORDS SUMMARY | 2022-01-02 08:40 | XMS_ITS | Encounter Summary ---
:1945 Author Organization [facility] Address [facility] [address] Care Team Providers Name Role Phone Chele Mena MD Primary Care Provider Birgit Whipple MD Unavailable Reason for Visit Reason Onset Date Comments Other 01/10/2015 Question related to neuropathy Encounter Details Date Type Department Care Team Description 01/10/2015 Telephone [facility] Epilepsy Care Shayna Parker Other (Question related [address] RN to guerrero giron) [address] [place] [address] Social History Tobacco Use Types Packs/Day Years Used Date Smoking Tobacco: Never Smokeless Tobacco: Never Sex Assigned at Date Recorded 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 Fabian at her 02/08/15 appointment and call in the meantime with any further questions or concerns. No further action needed at this time. TRIMMER Telephone Encounter - Shayna Parker RN - 01/10/2015 10:18 AM CST ----- Message from [employer] CMA sent at 01/10/2015 9:56 AM SOLE TRIMMER ----- Regarding: BLACK Caller: Kisha Relationship to Patient: Self Call Back Number: [phone] Reason for Call: Patient is having issues [...] themto discuss who she should be seeing. TRIMMER documented in this encounter Plan of Treatment Upcoming Encounters Date Type Specialty Care Team Description 03/20/2022 Virtual Visit Neurology Birgit Whipple MD [address] [place] [address] (Wo rk) documented as of this encounter Visit Diagnoses Not on filedocumented in this encounter Care Teams Electrotyper Apprentice Relationship Specialty Start Date End Date Chele Mena MD PCP - General Internal Medicine 11/28/12 [facility] [address] [place] [address] Birgit Whipple MD MD Neurology 06/16/14 documented as of this encounter
--- OUTSIDE RECORDS SUMMARY | 2022-01-02 08:40 | XMS_ITS | Encounter Summary ---
:1945 Author Organization [place] Address [address] [place] [address]. [place] [address] Care Team Providers Name Role Phone Chele Mena MD Primary Care Provider Birgit Whipple MD Unavailable Reason for Visit Reason Comments RECHECK Starting using CPAP. No know n seizures since last appointment. 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 Epilepsy Syndrome: Localization-related epilepsy unspecified Age of Onset: 54 Etiology : Unknown Other Relevant Dx/ Issues: Inpatient evaluations 01/04 and 02/03. Two Twelve [...] MG capsule Take by mouth daily ??? [id number] D PO Take by mouth daily ??? primidone (MYSOLINE) 250 MG tablet Take 1 tablet (250 mg) by mouth At Bedtime 30 tablet 6 ??? Ascorbic Acid (VITAMIN C PO) ??? Vesuvius-3 Fatty Acids (FISH OIL PO) ??? 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 Lethargy / Tiredness: No Nausea / Vomiting: [...] is midline. Coordination: Bilateral minimal tremor in qslruf-rd-xowh as well as slight postural tremor bilaterally. [...] 03/20/2022 Virtual Visit Neurology Birgit Whipple MD [address] [place] [id number] (Wo rk) documented as of this encounter [...] Signature AST 31 0 - 45 U/L [facility] Specimen Anatomical Collection Method Collection Time Receive d Time (Source) Location / / Volume Laterality Blood specimen VENOUS BLOOD / 07/27/2014 2:20 PM 07/27 9:58 (specimen) Unknown CDT PM CDT Birgit Whipple MD LAB - BLOOD ORDERABLES Performing Organization Address City/[facility]/ZIP Code Phon e Number [address] Valproic acid free (07/27/2014 2:20 PM CDT) athologist Signature Valproic Acid 7.5 [facility] Replaced by [facility] Comment: Analysis performed by [facility] [place] [address] Reference range: 6.0 ??to ??20.0 Unit: ug/ml Specimen Anatomical Collection Method Collection Time Receive d Time (Source) Location / / Volume Laterality Blood specimen VENOUS BLOOD / 07/27/2014 2:20 PM 07/27 9:58 (specimen) Unknown CDT PM CDT Birgit Whipple MD LAB - BLOOD ORDERABLES Performing Organization Address City/[facility]/ZIP Code Phon e Number [address] Valproic acid (07/27/2014 2:20 PM CDT) athologist Signature Valproic Acid 51 50 - 100 [facility] Level mg/L [facility] Specimen Anatomical Collection Method Collection Time Receive d Time (Source) Location / / Volume Laterality Blood specimen VENOUS BLOOD / 07/27/2014 2:20 PM 07/27 9:58 (specimen) Unknown CDT PM CDT Birgit Whpiple MD LAB - BLOOD ORDERABLES Performing Organization Address City/[facility]/ZIP Code Phon e Number [address] Primidone level (07/27/2014 2:20 PM CDT) athologist Signature Primidone 5.9 [facility] Level [facility] Comment: Analysis performed by [facility] [place] [address] Reference range: 5.0 ??to ??12.0 Unit: ug/ml Specimen Anatomical Collection Method Collection Time Receive d Time (Source) Location / / Volume Laterality Blood specimen VENOUS BLOOD / 07/27/2014 2:20 PM 07/27 9:58 (specimen) Unknown CDT PM CDT Birgit Whipple MD LAB - BLOOD ORDERABLES Performing Organization Address City/State/ZIP Code Phon e Number [facility] [address] [place], [place] [id number] [place] [address] documented in this encounter Visit Diagnoses Diagnosis Localization-related (focal) (partial) e pilepsy and epileptic syndromes with complex partial seizures, without mention of int ractable epilepsy - Primary Essential and other specified forms of t remor documented in this encounter Care Teams Validation Scientist Relationship Specialty Start Date End Date Chele Mena MD PCP - General Internal Medicine 11/28/12 [facility] [address] [place] [address] Birgit Whipple MD MD Neurology 06/16/14 documented as of this encounter
--- OUTSIDE RECORDS SUMMARY | 2022-01-02 08:40 | XMS_ITS | Encounter Summary ---
:1945 Author Organization [place] Address [address] [place] [address]. [place] [address] Care Team Providers Name Role Phone Chele Mena MD Primary Care Provider [phone] Reason for Visit Reason Onset Date Comments Medication Request 03/11/2014 PRM 50 mg am? 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 Fabian today and she approved the 50 mg primidone tab also at am. New script will be sent. According to patient she is doing fine. ENT CAREER DEVELOPMENT SPECIALIST Telephone Encounter - Jacque Valdez [facility] - 03/11/2014 9:53 AM CST ----- Message from Willie Mitchell CMA sent at 03/11/2014 9:39 AM STUDENT CAREER DEVELOPMENT SPECIALIST ----- Regarding: refill Pt states that she is taking primidone (MYSOLINE) 50mg tablets. Taking 1 tab AM. Needs refill. Pharm: [id number] [id number] [facility] ENT CAREER DEVELOPMENT SPECIALIST documented in this encounter Plan of Treatment Upcoming Encounters Date Type Specialty Care Team Description 03/20/2022 Virtual Visit Neurology Birgit Whipple MD [address] [place] [address] (Wo rk) documented as of this encounter Visit Diagnoses Diagnosis Essential and other specified forms of t remor - Primary documented in this encounter Care Teams Returned Goods Sorter Relationship Specialty Start Date End Date Chele Mena MD PCP - General Internal Medicine 11/28/12 [facility] [address] [place] [address] documented as of this encounter
--- OUTSIDE RECORDS SUMMARY | 2022-01-02 08:40 | XMS_ITS | Encounter Summary ---
:1945 Author Organization [place] Address [facility] [place] [address] Care Team Providers Name Role Phone Unavailable Primary Care Provider Unavailable Reason for Visit Rehab Therapy Physical Therapy (Routine) - Closed Specialty Diagnoses / Procedures Referred By Contact Refer red To Contact Physical Therapy Diagnoses MEDICARE left sided disk herniations Andrew Branch Pt Procedures POOL EVAL [address] [facility] [address] [place] [address] [place] [address] Phone: Referral ID Status Reason Start Date Expiration Date Visits Requ ested Visits Authorized [id number] Closed 07/09/2012 01/05/2013 365 365 Encounter Details Date Type Department Care Team Description 10/08/2012 Hospital Encounter [facility] Surya Branch matthew [address] [place] [address] Rehabilitation Services Bindu Haas, PT [facility] [address] [place] [address] [place] Gabriela [address] [place] [address] Social History Tobacco Use Types Packs/Day Years Used Date Smoking Tobacco: Never Assessed Sex Assigned at Date Recorded 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 Andrew Branch Therapy Diagnosis: disk herniations, DDD, patellofemoral pain Client Self Report: Pt and were not able to come in to the pool independently since last visit due to busy schedules. Pt reports her back pain is usually an 8-9/10, knee pain is 5-6/10. Pt doesfeel like knee injections have helped some. Pt continues to be limited by pain in standing and walking tolerance. Pt is motivated to continue with aquatic exercise program with the assistance of her . Pt is a [employer] member and will continue at the pool. Pt was seen for a total of 9 aquatic PT sessions. Goals: Goal Identifier STG 1 Goal Description 1. 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 Target Date 10/24/12 Date Met Progress: Goal not met- pt still with increased pain 8-9/10 Goal Identifier STG 3 Goal Description 3. Pt will be able to demonstrate improved LE strength by report of increased ease with ascending and descending stairs in the home. Target Date 10/24/12 Date Met Progress: Goal not met- pt has been doing stair exercises but still needs step to gait pattern Progress Toward Goals: Progress this reporting period: Pt has been making progress towards goals and feels the pool helps with pain. She continues to have pain on daily basis in back and knee. She is eager to continue pool exercises on her own. Plan: Discharge from therapy. Discharge: Reason for Discharge: pt is now able to complete aquatic exercises with the assist of her [employer] where she is a member Equipment Issued: laminated exercise handouts Discharge Plan: Patient to continue home program. Bindu Haas, PT - 10/08/2012 12:11 PM CDT AQUATIC PHYSICAL THERAPY EXERCISE LOG (TRUNK) Date 07/09/12 Bindu Haas, PT Session 1 08/15/12 Bindu Haas ,PT 08/20/12 Bindu Haas, PT 08/22/12 Bindu Haas, PT 08/27/12 Bindu Haas, PT 09/03/12 Bindu Haas, PT 09/05/12 Bindu Haas, PT 09/24/12 Bindu Haas, PT 10/08/12 Bindu Haas, PT Warm Up Ambulation (Forward/Side/Back/April/) 2 f,s,b with EMPLOYEE SERVICE OFFICER 2 f/s/b with EMPLOYEE SERVICE OFFICER 2 f/s/b no EMPLOYEE SERVICE OFFICER 2 f/s/b 2 f/s/b/m 2 f/b/s 2 f/b/s 2 f/b/s 2 f/b/s Stretching/ROM [...] 2 B 30 sec x 1 B 30 sec x 2 B Hamstring (On Step/Cuff) 30 sec x 2 B 30 sec x 2 B 30 sec x 2 B 30 sec x 2 B 30 sec x 2 B 30 sec x 2 B 30 sec x 2 B 30 sec x 1 B 30 sec x 2 B Calf (In Hole/At Wall) 30 sec x 2 B 30 sec x 2 B 30 sec X 2 B 30 sec x2 B 30 sec x 2 B 30 sec x 2 B30 sec x 2 B 30 sec x1 B 30 sec x 2 B Quad [...] with wall with closed paddles x 12 away from wallwith closed paddles x 15 Horizon (Abd/Add, Diagonals) X 10 X 10 X 12 X 12 x12 x12 x15 Rowing Arms UE PNF (D1/D2) Abdominal Sets (Push/Pull, side to side, push down with board) Small x 10 each Small x 10 each Small x 10 each Small x 12 Small x 12 Small x 12 Small x 12 small x 15 Squat x15 Lunge Squat Hip (Flex/Ext, Abd/Add, single leg [...] support, x 12 each except figure 8 At wall with 2 fingers on wall, x 12 except figure 8 Heel/Toe Raises x10 x10 Step Ups (Forward, Lateral) x10 forward, x 10 side step over x10 forward, x 10 side tap down Noodle Push Downs With assist, colored noodle [...] x20 sec Tandem Stand X 20 sec Tandem walk 1 lap Single Leg Stance x10 sec Heel/Toe Walking 3 Step and Stop x5 x5 x5 x5 Braiding Cool Down Ambulation 3 f with no UE support 2 f no UE support X 2f 2 f 1 f 1 f 1 f 1 f [place] Dangle documented in this encounter Plan of Treatment Upcoming Encounters Date Type Specialty Care Team Description 03/20/2022 Virtual Visit Neurology Birgit Whipple MD [address] [place], [place] [address] (Wo rk) documented as of this encounter Visit Diagnoses Not on filedocumented in this encounter
--- OUTSIDE RECORDS SUMMARY | 2022-01-02 08:40 | XMS_ITS | Encounter Summary ---
:1945 Author Organization [place] Address [facility] [place] [address] Care Team Providers Name Role Phone Unavailable Primary Care Provider Unavailable Reason for Visit Rehab Therapy Physical Therapy (Routine) - Closed Specialty Diagnoses / Procedures Referred By Contact Refer red To Contact Physical Therapy Diagnoses MEDICARE left sided disk herniations Andrew Branch Pt Procedures POOL EVAL 1400 [facility] [address] [place] [address] [place] [address] Phone: Referral ID Status Reason Start Date Expiration Date Visits Requ ested Visits Authorized [id number] Closed 07/09/2012 01/05/2013 365 365 Encounter Details Date Type Department Care Team Description 08/27/2012 Hospital Encounter [facility] Surya Branch matthew [address] [place] [address] Rehabilitation Services Bindu Haas, PT [facility] [address] [place] [address] [place] Gabriela [address] [place] [address] Social History Tobacco Use Types Packs/Day Years Used Date Smoking Tobacco: Never Assessed Sex Assigned at Date Recorded 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 Progress Notes Bindu Haas, PT - 08/27/2012 11:43 AM CDT AQUATIC PHYSICAL THERAPY EXERCISE LOG (TRUNK) Date 07/09/12 Bindu Haas, PT Session 1 08/15/12 Bindu Haas ,PT 08/20/12 Bindu Haas, PT 08/22/12 Bindu Haas, PT 08/27/12 Bindu Haas, PT Warm Up Ambulation (Forward/Side/Back/April/) 2 f,s,b with WEIGHT SHIFTER 2 f/s/b with WEIGHT SHIFTER 2 f/s/b no WEIGHT SHIFTER 2 f/s/b 2 f/s/b/m Stretching/ROM Chin Tucks [...] Flexor (Kneel) Piriformis (Seated/Stand) Trunk ROM (Flex/Ext/SB/Rot/All) LORNA GALLARDO Strengthening Abdominal Sets/ Pelvic Tilt With exercises, [...] no UE support X 2f 2 f [place] Dangle documented in this encounter Plan of Treatment Upcoming Encounters Date Type Specialty Care Team Description 03/20/2022 Virtual Visit Neurology Birgit Whipple MD [address] [place], [place] [address] (Wo rk) documented as of this encounter Visit Diagnoses Not on filedocumented in this encounter
--- OUTSIDE RECORDS SUMMARY | 2022-01-02 08:40 | XMS_ITS | Encounter Summary ---
:1945 Author Organization [place] Address [facility] 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 documented in this encounter Results UPPER GI ENDOSCOPY (09/29/2009 7:30 AM CDT) Component Value Ref Test Analysis Performed At [facility] Range Method Time Signature Upper GI [facility] RADIO LOGY Endoscopy RESULTS Patient Name: Kisha [...]
--- OUTSIDE RECORDS SUMMARY | 2022-01-02 08:40 | XMS_ITS | Encounter Summary ---
:1945 Author Organization [place] Address 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 documented in this encounter Results UPPER GI ENDOSCOPY (05/31/2006 10:10 AM CDT) Component Value Ref Test Analysis Performed At [facility] Range Method Time Signature Upper GI Endoscopy [...] oxygen saturations were monitored ?cont inuously. The [id number] was introduced through ?the mouth, and advanced [...] ?report. ?- Return to primary care provider [place] N. ? R Mihaela Gutirerez Navi Chairez MD Signed Date: 05/31/2006 10:45 [...]
--- OUTSIDE RECORDS SUMMARY | 2022-01-02 08:40 | XMS_ITS | Encounter Summary ---
:1945 Author Organization [place] Address [facility] [place] [address] Care Team Providers Name Role Phone Unavailable Primary Care Provider Unavailable Reason for Visit Rehab Therapy Physical Therapy (Routine) - Closed Specialty Diagnoses / Procedures Referred By Contact Refer red To Contact Physical Therapy Diagnoses MEDICARE left sided disk herniations Andrew Branch Pt Procedures POOL EVAL 1400 [facility] [address] [place] [address] [place] [address] Phone: Referral ID Status Reason Start Date Expiration Date Visits Requ ested Visits Authorized [id number] Closed 07/09/2012 01/05/2013 365 365 Encounter Details Date Type Department Care Team Description 08/20/2012 Hospital Encounter [facility] Surya Branch matthew [address] [place] [address] Rehabilitation Services Bindu Haas, PT [facility] [address] [place] [address] [place] Gabriela [address] [place] [address] Social History Tobacco Use Types Packs/Day Years Used Date Smoking Tobacco: Never Assessed Sex Assigned at Date Recorded 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 Progress Notes Bindu Haas, PT - 08/20/2012 12:43 PM CDT AQUATIC PHYSICAL THERAPY EXERCISE LOG (TRUNK) Date 07/09/12 Bindu Haas, PT Session 1 08/15/12 Bindu Haas ,PT 08/20/12 Bindu Haas, PT Warm Up Ambulation (Forward/Side/Back/April/) 2 f,s,b with READING EFFICIENCY COURSE DIRECTOR 2 f/s/b with READING EFFICIENCY COURSE DIRECTOR 2 f/s/b no READING EFFICIENCY COURSE DIRECTOR Stretching/ROM Chin Tucks CROM (Flex/Ext/SB/Rot/All) Shoulder (Shrugs/Rolls) [...] UE support 2 f no UE support [place] Dangle documented in this encounter Plan of Treatment Upcoming Encounters Date Type Specialty Care Team Description 03/20/2022 Virtual Visit Neurology Birgit Whipple MD [address] [place] [phone] (Wo rk) documented as of this encounter Visit Diagnoses Not on filedocumented in this encounter
--- OUTSIDE RECORDS SUMMARY | 2022-01-02 08:40 | XMS_ITS | Encounter Summary ---
:1945 Author Organization [place] Address [address] [place] [address]. [place] [address] Care Team Providers Name Role Phone Chele Mena MD Primary Care Provider [phone] Reason for Visit Reason Comments RECHECK Needs refills. Still has iss ues with tremors and hands shaking. Encounter Details Date Type Department Care Team Description 11/28/2012 Office Visit [facility] Epilepsy Care Rui-Monatanaelani, Localization-related [address] Genao MD (focal) (partial) [place], [address] 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 Her AST [...] Intact. No nystagmus. Coordination: Bilateral tremor in [id number] as well as postural tremor bilaterally. Face [...] BURRIS MD MT: LRD Name: SHASHI ARMSTRONG Account: [id number] : 1945 Service Date: 11/28/2012 Document: [id number] Janny Pretty CMA - 11/28/2012 11:26 AM CDT Labs drawn today at 11:16 am. Last dose at 8:15 am today. documented in this encounter Plan of Treatment Upcoming Encounters Date Type Specialty Care Team Description 03/20/2022 Virtual Visit Neurology Francisco Javier Burris MD [address] [place] [address] (Wo rk) documented as of this [...] CDT) P athologist Signature Valproic Acid 9.0 [facility] Comment: Analysis performed by [employer] [place] [address] Reference range: 6.0 ??to ??20.0 Unit: ug/ml Specimen Anatomical Collection Method Collection Time Receive d Time (Source) Location / / Volume Laterality Blood specimen VENOUS BLOOD / 11/28/2012 10:25 013 (specimen) Unknown PM CDT 10:26 PM CDT Francisco Javier Burris MD LAB - BLOOD ORDERABLES Performing Organization Address City/State/ZIP Code Phon e Number [address] [address] [facility] Valproic acid (11/28/2012 10:25 PM CDT) athologist Signature Valproic Acid 55 50 - 100 [facility] Level mg/L CAMPUS LABS Specimen Anatomical Collection Method Collection Time Receive d Time (Source) Location / / Volume Laterality Blood specimen VENOUS BLOOD / 11/28/2012 10:25 013 (specimen) Unknown PM CDT 10:26 PM CDT Francisco Javier Burris MD LAB - BLOOD ORDERABLES Performing Organization Address City/[facility]/ZIP Code Phon e Number [address] [address] [facility] documented in this encounter Visit Diagnoses Diagnosis 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
--- OUTSIDE RECORDS SUMMARY | 2022-01-02 08:40 | XMS_ITS | Encounter Summary ---
:1945 Author Organization [place] Address [address] [place] [address]. [place] [address] Care Team Providers Name Role Phone Chele Mena MD Primary Care Provider [phone] Reason for Visit Reason Comments RECHECK No seizures or episodes. 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 Last Filed Vital Signs Vital Sign Reading Time Taken Comments Blood Pressure 141/72 12/29/2013 3:39 PM WEB MACHINE TENDER Pulse 91 12/29/2013 3:39 PM WEB MACHINE TENDER Temperature - - Respiratory Rate - - Oxygen Saturation - - Inhaled Oxygen Concentration - - Weight 118.8 kg (262 lb) 12/29/2013 3:39 PM WEB MACHINE TENDER Height 170 cm (5' 6.93) 12/29/2013 3:39 PM WEB MACHINE TENDER Body Mass Index 41.12 12/29/2013 3:39 PM WEB MACHINE TENDER documented in this encounter Progress Notes Birgit Whipple MD - 12/29/2013 4:03 PM CST [facility] Progress Note Patient: Kisha Gnadara : 1945 Age: [age] year old Today's Office Visit: 12/29/2013 Epilepsy Data: Patient History Primary Epileptologist/Provider: Birgit Whipple M.D. Epilepsy Syndrome: Localization-related epilepsy unspecified Age of Onset: 54 Etiology : Unknown Other Relevant Dx/ Issues: Inpatient evaluations 01/04 and 02/03. [facility] consulation 12/04 for nonconvulsive status [...] tabs every 4 hours as needed. ??? MEJRGPH-[id number]-[id number] D PO Take by mouth daily ??? divalproex (DEPAKOTE) 500 MG EC tablet 1 tab am, 1 tabs pm 60 tablet 3 ??? Ascorbic Acid (VITAMIN C PO) ??? [place]-3 Fatty Acids (FISH OIL PO) ??? Multiple [...] Tongue is midline. Coordination: Bilateral tremor in mpvkcu-km-clrn as well as postural tremor bilaterally. Limb [...] of the visit time. 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
--- OUTSIDE RECORDS SUMMARY | 2022-01-02 08:40 | XMS_ITS | Encounter Summary ---
:1945 Author Organization [place] Address [address] [place] [address]. 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
--- OUTSIDE RECORDS SUMMARY | 2022-01-02 08:40 | XMS_ITS | Encounter Summary ---
:1945 Author Organization [place] Address [facility] [place] [address] Care Team Providers Name Role Phone Unavailable Primary Care Provider Unavailable Reason for Visit Rehab Therapy Physical Therapy (Routine) - Closed Specialty Diagnoses / Procedures Referred By Contact Refer red To Contact Physical Therapy Diagnoses MEDICARE left sided disk herniations Andrew Branch Pt Procedures POOL EVAL [address] [facility] [address] [place] [address] [place] [address] Phone: Referral ID Status Reason Start Date Expiration Date Visits Requ ested Visits Authorized [id number] Closed 07/09/2012 01/05/[phone] Encounter Details Date Type Department Care Team Description 07/09/2012 Hospital Encounter [facility] Surya Branch matthew [address] [place] [address] Rehabilitation Services Bindu Haas, PT [facility] [address] [place] [address] [place] [address] [place] [address] Social History Tobacco Use Types Packs/Day Years Used Date Smoking Tobacco: Never Assessed Sex Assigned at Date Recorded 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 as of this encounter Progress Notes Bindu Haas, PT - 07/09/2012 4:30 PM CDT AQUATIC PHYSICAL THERAPY EXERCISE LOG (TRUNK) Date 07/09/12 Bindu Haas, PT Session 1 Warm Up Ambulation (Forward/Side/Back/April/All) 2 f,s,b with MERCHANDISE ADJUSTMENT CLERK Stretching/ROM Chin Tucks CROM (Flex/Ext/SB/Rot/All) Shoulder (Shrugs/Rolls) [...] Step and Stop Braiding Cool Down Ambulation [place] Dangle Bindu Haas, PT - 07/09/2012 11:35 [...] alone for 2-4 hours when husbands works department coordinator) Living environment House/[facility] Home/Community Accessibility Comments split entry Current Assistive [...] wide MONIKA, pt did slightly better with MERCHANDISE ADJUSTMENT CLERK. Pt advised to bring 4WW for safety [...] decrease pain. Pt is hoping to join [facility] once she is independent with aquatic PT. 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 Target Date 09/08/12 Goal [...] Virtual Visit Neurology Birgit Whipple MD [address] [place] [phone] (Wo rk) documented as of this encounter Visit Diagnoses Not on filedocumented in this encounter
--- OUTSIDE RECORDS SUMMARY | 2022-01-02 08:40 | XMS_ITS | Encounter Summary ---
:1945 Author Organization [place] Address [address] [place] [address]. [place] [address] Care Team Providers Name Role Phone Chele Mena MD Primary Care Provider Birgit Whipple MD Unavailable Reason for Visit Reason Comments Seizures follow up Encounter Details Date Type Department Care Team Description 02/21/2016 Office Visit [facility] Sarabjit, Localization-related [address] Angela Genao MD epilepsy (H) (Primary [place], [address] [facility] [place] [address] [phone] Social History Tobacco Use Types Packs/Day Years Used Date Smoking Tobacco: Never Smokeless Tobacco: Never Tobacco Cessation: Counseling Given: No Sex Assigned at Date Recorded Female 04/04/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 documented as of this encounter Last Filed Vital Signs Vital Sign Reading Time Taken Comments Blood Pressure 103/73 02/21/2016 9:58 AM PROJECT SPECIALIST Pulse 70 02/21/2016 9:58 AM PROJECT SPECIALIST Temperature - - Respiratory Rate - - Oxygen Saturation - - Inhaled Oxygen Concentration - - Weight 119.1 kg (262 lb 9.6 oz) 02/21/2016 9:58 AM PROJECT SPECIALIST Height 170 cm (5' 6.93) 02/21/2016 9:58 AM PROJECT SPECIALIST Body Mass Index 41.22 02/21/2016 9:58 AM PROJECT SPECIALIST documented in this encounter Progress Notes Birgit Whipple MD - 02/21/2016 10:05 AM CST [facility] Epilepsy Care Progress Note Patient: Shahsi Armstrong : 1945 Age: [age] year old Today's Office Visit: 02/21/2016 Epilepsy Data: Patient History Primary Epileptologist/Provider: Birgit Whipple M.D. Epilepsy Syndrome: Localization-related epilepsy unspecified Age of Onset: 54 Etiology : Unknown Other Relevant Dx/ Issues: Inpatient evaluations 01/04 and 02/03. [facility] consulation 12/04 for nonconvulsive status epilepticus. History of Depakote-induced hyperammonemia. Tests/Surgery History Last EE01/30/10 Last MRI: 01/10/10 Seizure Record Current Visit Date: 02/21/16 Previous Visit Date: 08/16/15 Months since last visit: 08.15 Seizure Type 1: Complex partial seizures unspecified Seizure Type 2: Tonic-clonic seizures History of Present Illness: The patient is accompanied by her . She is not aware of any seizures. Her has noted acouple of times that she is slow or delayed to respond. I.e. In the gym he has noted that she answered her driver trainer with delay. He is not sure if it is because of her hearing problem (she uses a hearingaid, and sometimes the settings are not adjusted), or because she is concentrating on something else, or she had a seizure. Tremors are better, she is taking primidone 250 mg at night. She has been taking Lyrica for her neuropathy. 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 Her PCP has done some blood work to evaluate this. Current Outpatient Prescriptions Medication Sig Dispense Refill ??? primidone (MYSOLINE) 250 MG tablet TAKE ONE TABLET BY MOUTH NIGHTLY AT BEDTIME 30 tablet 4 ??? ACETAMINOPHEN PO ??? acetaminophen-codeine (TYLENOL #3) 300-30 MG per tablet Take 1-2 tablets by mouth daily as needed for moderate pain ??? divalproex (DEPAKOTE ER) 250 MG 24 hr tablet Take 250 mg by mouth 3 times daily 3 tablets 2 times daily ??? pregabalin (LYRICA) 50 MG capsule Take 1 capsule (50 mg) by mouth 3 times daily 90 capsule ??? blood glucose monitoring (SOFTCLIX) lancets 1 [...] FOR WOMEN TD) Every 4 days ??? LANsoprazole (PREVACID) 30 MG capsule Take by mouth daily ??? HLTCMUX-UAIWVUREA-LTSWJBJ D PO Take by mouth daily ??? Ascorbic Acid (VITAMIN C PO) ??? [place]-3 Fatty Acids (FISH OIL PO) ??? Multiple Vitamin (DAILY MULTIVITAMIN PO) ??? aspirin 81 MG tablet Take by mouth daily ??? simvastatin (ZOCOR) 20 MG tablet Take by mouth daily ??? metoprolol (LOPRESSOR) 50 MG tablet Take 50 mg by mouth 2 times daily ??? lisinopril (PRINIVIL,ZESTRIL) 10 MG tablet Take 10 mg by mouth 2 times daily ??? [DISCONTINUED] divalproex (DEPAKOTE) 500 MG EC tablet 1 tab am, 1 tabs pm 60 tablet 4 ??? [DISCONTINUED] divalproex (DEPAKOTE) 500 MG EC tablet 1 tab am, 1 tabs pm 60 tablet 5 Medication Notes: AED Medication Compliance: compliant most of the time Using a pill box: Yes Results for SHASHI ARMSTRONG ( ) as of 02/21/2016 10:13 Ref. Range 08/16/2015 10:30 Primidone Level Unknown 5.2 Valproic Acid Level Latest Ref Range: 50-100 mg/L 70 Valproic Acid Free Unknown 11.4 Review of Systems: Lethargy / Tiredness: Yes Nausea / Vomiting: No Double Vision: No Sleepiness: Yes Depression: No Slowed Cognitive Function: No Memory Problems: No Poor Balance: Yes Dizziness: No Appetite Changes: No Blurred Vision: No Sleep Changes: No Behavioral Changes: No Skin: No rash Respiratory: No shortness of breath and No cough Cardiovascular: No chest pain Have you experienced a traumatic fall since your last visit: NO Exam: BP 103/73 mmHg Pulse 70 Ht 5' 6.93 (170 cm) Wt 262 lb 9.6 oz (119.115 kg) BMI 41.22 kg/m2 ? No Wt Readings from Last 5 Encounters: 02/21/16 262 lb 9.6 oz (119.115 kg) 08/16/15 259 lb (117.482 kg) 02/08/15 260 lb 3.2 oz (118.026 kg) 07/27/14 266 lb 9.6 oz (120.929 kg) 12/29/13 262 lb (118.842 kg) General Appearance: Alert, awake, cooperative and pleasant, NAD Gait: walks slowly with the cane, wide-based gait, safe straightaway; tandem gait was not tested Attention Span: Normal Language/speech: No aphasia or dysarthria. Extraocular movements: Intact. No nystagmus. Face is symmetric. Tongue is midline. Coordination: Bilateral minimal tremor in xyjwto-zk-arel as well as slight postural tremor bilaterally. Limb strength 5/5 with no drift. Normal tone. Assessment and Plan: Localization-related epilepsy: The patient did not have any evident seizures that she or her husbandwere aware of. Her has noted a few episodes that she was slow in response or had a delayed response; he is not sure if this was a seizure, or was due to her hearing problems or just because shewas concentrating on other things. He would continue monitoring these. Her tremors are better. She can write much better. She doesn't spill food. She was diagnosed with neuropathy and was put on Lyricaby her PCP. Her PCP did blood work for neuropathy, she doesn't know the results. - Continue AEDs as before - Obtain AED levels - Continue primidone 250 mg nightly - RTC in 6 months As described above, I met with the patient for 25 minutes and during this time counseling was greater than 50% of the visit time. ECT SPECIALIST documented in this encounter Nursing Notes Amarilis Noble - 02/21/2016 10:36 AM CST Medication taken at 8 am Blood drawn at 10:35 am Amarilis Noble CUSTOMER PRICING MANAGER ECT SPECIALIST documented in this encounter Plan of Treatment Upcoming Encounters Date Type Specialty Care Team Description 03/20/2022 Virtual Visit Neurology Birgit Whipple MD [address] [place] [phone] (Wo rk) documented as of this encounter Procedures Procedure Name Priority Date/Time Associated Diagnosis Comme nts VALPROIC ACID Routine 02/21/2016 10:37 AM Localization-related Results for this PROJECT SPECIALIST epilepsy (H) procedure are i n the results section . documented in this encounter Results Valproic Acid level (02/21/2016 10:37 AM PROJECT SPECIALIST) P athologist Signature Valproic Acid 77 50 - 100 [facility] Level mg/L [facility] Specimen Anatomical Collection Method Collection Time Receive d Time (Source) Location / / Volume Laterality Blood specimen VENOUS BLOOD / 02/21/2016 10:37 016 8:52 (specimen) Unknown AM PROJECT SPECIALIST PM PROJECT SPECIALIST Birgit Whipple MD LAB - BLOOD ORDERABLES Performing Organization Address City/State/ZIP Code Phon e Number [facility] [address] [place], [place] [phone] [place] [address] documented in this encounter Visit Diagnoses Diagnosis Localization-related epilepsy (H) - Prim [place]ow Localization-related (focal) (partial) e pilepsy and epileptic syndromes with simple partial seizures, without mention of int ractable epilepsy documented in this encounter Care Teams Radiology Services Manager Relationship Specialty Start Date End Date Chele Mena MD PCP - General Internal Medicine 11/28/12 [facility] [address] [place] [address] Birgit Whipple MD MD Neurology 06/16/14 documented as of this encounter
--- OUTSIDE RECORDS SUMMARY | 2022-01-02 08:40 | XMS_ITS | Encounter Summary ---
:1945 Author Organization [place] Address [facility]0 [facility] 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 documented in this encounter Results CT Therapy correlate (06/13/2010 12:07 PM CDT) Anatomical Region Laterality Modality Procedure, SUBRAD CT BODY, UMP CT ABDOMEN PELVIS Computed Tomography Specimen (Source) Anatomical Collection Method Collection Time Re ceived Time Location / / Volume Laterality 06/13/2010 12:07 PM CDT Impressions 06/13/2010 12:[address] THERAPY CORRELATE [...] planning. Rossi Brito DO IMG CT ORDERABLES documented in this encounter Visit Diagnoses Not on filedocumented in this encounter
--- OUTSIDE RECORDS SUMMARY | 2022-01-02 08:40 | XMS_ITS | Encounter Summary ---
:1945 Author Organization [place] Address [facility] [place] [address] Care Team Providers Name Role Phone Unavailable Primary Care Provider Unavailable Reason for Visit Rehab Therapy Physical Therapy (Routine) - Closed Specialty Diagnoses / Procedures Referred By Contact Refer red To Contact Physical Therapy Diagnoses MEDICARE left sided disk herniations Andrew Branch Pt Procedures POOL EVAL [address] [facility] [address] [place] [address] [place] [address] Phone: Referral ID Status Reason Start Date Expiration Date Visits Requ ested Visits Authorized [id number] Closed 07/09/2012 01/05/[phone] Encounter Details Date Type Department Care Team Description 08/15/[address] 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 documented as of this encounter Progress Notes Bindu Haas, PT - 08/15/2012 12:21 PM CDT AQUATIC PHYSICAL THERAPY EXERCISE LOG (TRUNK) Date 07/09/12 Bindu Haas PT Session 1 08/15/12 Bindu Haas PT Warm Up Ambulation (Forward/Side/Back/March/All) 2 f,s,b with CLIN APPLICATION SPECIALIST 2 f/s/b with CLIN APPLICATION SPECIALIST Stretching/ROM Chin Tucks CROM (Flex/Ext/SB/Rot/All) Shoulder (Shrugs/Rolls) [...] Ambulation 3 f with no UE support Garfield Dangle documented in this encounter Plan of Treatment Upcoming Encounters Date Type Specialty Care Team Description 03/20/2022 Virtual Visit Neurology Birgit Whipple MD [address] [place] [phone] (Wo rk) documented as of this encounter Visit Diagnoses Not on filedocumented in this encounter
--- OUTSIDE RECORDS SUMMARY | 2022-01-02 08:40 | XMS_ITS | Encounter Summary ---
:1945 Author Organization [facility] Address [address] [place] [address]. 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 HISTOPATHOLOGY Routine 09/05/2007 12:00 Results f or this AM CDT procedure are i n the results section. documented in this encounter Results Histopathology (09/05/2007 12:00 AM CDT) Component Value Ref Test Analysis Performed Pathologis t Range Method Time At Signature Copath CASE: [id number] ^ [facility] Report Patient Name: KISHA ARMSTRONG MR#: [id number] Specimen #: [id number] Collected: 09/05/2007 Received: 09/05/2007 Reported: 09/11/2007 13:25 Ordering Phy(s): JENNYFER FERNANDEZ Additional Phy(s): [facility] ORIGINAL REPORT FOLLOWS ADDENDUM ADDENDUM TO ORIGINAL REPORT Status: Signed Out Date Ordered:09/23/2007 Date Complete:09/23/2007 Date Reported:09/23/2007 08:26 Signed Out By: Vinnie Vargas M.D. INTERPRETATION: The quality/quantity of DNA was insufficient for PCR analysi s and the testing was cancelled (see separate molecular report). As described in the original report, the morphologic feature s favor a large reactive lymphoid follicle/aggregate. ??Clinical corre lation is suggested. ALETHEA/diane DT/09-23-07 ORIGINAL REPORT: SPECIMEN(S): Cecal polyp FINAL DIAGNOSIS: Rectal polyp, hot biopsy - 1. ?Lymphoid follicle/aggregate. 2. ? No hyperplastic or adenomatous polypidentified. 3. ? See microscopic description. 4. ? Gene rearrangement studies by PCR pending (see sepa rate [facility] Repor t). Electronically signed out by: Vinnie Vargas M.D. CLINICAL HISTORY: Screening. GROSS: The specimen is labeled cecal polyp and it consists of a 0 .2 x 0.1 cm pink-ni fragment. ??Entirely submitted. ??ALETHEA/gagandeep MICROSCOPIC: Sections show a large lymphoid follicle/aggregate with overl sonam reactive epithelial changes. ??Because of the size of the follicle/aggregate, immunostains were attempted in order to better characterize the process. ??There is a mixture of CD20 posit hortencia B cells and CD3/CD5 positive T-cells. ??The B-cells predominate in n umberand are present both within the follicular and interfollicular areas . ??No coexpression with CD5 is identified. ??Cyclin D-1 is negativ e in the lymphoid cells with nonspecific epithelial, endothelial, and plasma cell staining. ??Bcl-2 stains the background T cell component wit h residual follicle/germinal center being negative. ??The latter is pos itive for CD10. ??CD10 appears compartmentalized without extension int o the surrounding lymphoid tissue. ??CD23 shows residual dendritic areas within the follicular center regions and nonspecific staining focal ly in surrounding areas. The lymphoid aggregate/follicle has some unusual features. ? ?This was clinically described as being a solitary 3 mm nodule. ??The findings and differential was discussed with Dr. Fernandez at which time it wa s decided to perform B-cell gene rearrangements by PCR in an additional a ttempt to help further exclude the possibility of a low grade lymphopr oliferative process. ??The overall morphologic features are consistent w ith a reactive lymphoid aggregate/follicle. ??PCR studies are pend ing. Case internally consulted with Drs TANYA, YOUNG, and THANIA. ALETHEA/gagandeep /09-10-07 TESTING LAB LOCATION: [address] ??[id number] COLLECTION SITE: Client: [facility] Location: ENDO (R) Specimen (Source) Anatomical Collection Method Collection Time Re ceived Time Location / / Volume Laterality 09/05/2007 09/11/2007 1:25 PM CDT Jennyfer Fernandez MD LAB - [facility] SPECIAL DIAG OR DERABLES Performing Organization Address City/State/ZIP Code Phon e Number [facility] (09/05/2007 12:00 AM CDT) Component Value Ref Test Analysis Performed At [facility] Range Method Time Signature Copath Report CASE: [id number] ^ [facility] Patient Name: KISHA ARMSTRONG MR#: [id number] Specimen #: [id number] Collected: 09/05/2007 00:00 Received: 09/12/2007 08:59 Reported: 09/18/2007 16:17 Ordering Phy(s): JENNYFER FERNANDEZ TEST(S) REQUESTED: A: B-cell Gene Rearrangement by PCR B: DNA Isolation from fixed tissue SPECIMEN DESCRIPTION: Fixed Tissue (cecal polyp) Paraffin Block: [id number] METHODOLOGY: Total cellular DNA was extracted from the above specimen and was subjected to amplification with a series of oligonuc leotide primers for regions of the immunoglobulin heavy chain (Jh), bcl 2, bcl 1 and the gamma chain of the T-cell antigen receptor genes. e IgH and TCRG DNA fragments were analyzed by capillary gel electropho resis on an KATH 3100 Genetic Analyzer, and other DNA fragments were sepa rated on 5% PAGE gels, stained with EtBr and photographed. An internal c ontrol gene marker is used to assess the integrity of the DNA samples. I n certain cases, PCR results were confirmed by Southern Blot analysis using specific probes for a variety of markers including: immunogl obulin heavy (IgH Jh) and immunoglobulin light chains (C kappa, C lambda) , and T-cell receptor (TCR beta or gamma). RESULTS: B-cell markers IgH (Jh) Gene ? QNS T-cell markers TCR gamma Gene ? Not Tested INTERPRETATION: Molecular testing performed on submitted Tissue. Quantity/quality of DNA extracted is not sufficient for inte rpretation. COMMENT: This test has been canceled and credited except for a DNA is olation charge. This test was developed and its performance determined by [facility]. ?? It has not been cleared or approved by the U.S. Food and Drug Administr ation. ??The FDA has determined that such clearance or approval is not ne cessary. Pursuant to the requirements of CLIA' 88, this laboratory dent s established and verified the test' s accuracy and precision. ??Thistest is used for clinical purposes. Electronically Signed Out By: FLORA [employer] TESTING LAB LOCATION: [facility] [address] [address] COLLECTION SITE: Client: ??[facility] Location: ??ENDO (R) Specimen (Source) Anatomical Collection Method Collection Time Re ceived Time Location / / Volume Laterality 09/05/2007 09/18/2007 4:18 PM CDT Jennyfer Fernandez MD LAB - [facility] SPECIAL DIAG OR DERABLES Performing Organization Address City/State/ZIP Code Phon e Number [facility] documented in this encounter Visit Diagnoses Not on filedocumented in this encounter
--- OUTSIDE RECORDS SUMMARY | 2022-01-02 08:40 | XMS_ITS | Encounter Summary ---
:1945 Author Organization [place] Address [facility] [place] [address] Care Team Providers Name Role Phone Unavailable Primary Care Provider Unavailable Reason for Visit Rehab Therapy Physical Therapy (Routine) - Closed Specialty Diagnoses / Procedures Referred By Contact Refer red To Contact Physical Therapy Diagnoses MEDICARE left sided disk herniations Andrew Branch Pt Procedures POOL EVAL [address] [facility] [address] [place] [address] [place] [address] Phone: Referral ID Status Reason Start Date Expiration Date Visits Requ ested Visits Authorized [id number] Closed 07/09/2012 01/05/2013 365 365 Encounter Details Date Type Department Care Team Description 09/05/2012 Hospital Encounter [facility] Surya Branch matthew [address] [place] [address] Rehabilitation Services Bindu Haas, PT [facility] [address] [place] [address] [place] Gabriela ri [address] [place] [address] Social History Tobacco Use Types Packs/Day Years Used Date Smoking Tobacco: Never Assessed Sex Assigned at Date Recorded Female 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 documented as of this encounter Progress Notes Bindu Haas, PT - 09/05/2012 12:51 PM CDT AQUATIC PHYSICAL THERAPY EXERCISE LOG (TRUNK) Date 07/09/12 Bindu Haas, PT Session 1 08/15/12 Bindu Haas ,PT 08/20/12 Bindu Haas, PT 08/22/12 Bindu Haas, PT 08/27/12 Bindu Haas, PT 09/03/12 Bindu Haas, PT 09/05/12 Bindu Haas, PT Warm Up Ambulation (Forward/Side/Back/April/) 2 f,s,b with OUTSIDE SALES ADVERTISING EXECUTIVE 2 f/s/b with OUTSIDE SALES ADVERTISING EXECUTIVE 2 f/s/b no OUTSIDE SALES ADVERTISING EXECUTIVE 2 f/s/b 2 f/s/b/m 2 f/b/s 2 [...] 2f 2 f 1 f 1 f [place] Dangle documented in this encounter Plan of Treatment Upcoming Encounters Date Type Specialty Care Team Description 03/20/2022 Virtual Visit Neurology Birgit Whipple MD [address] [place] [phone] (Wo rk) documented as of this encounter Visit Diagnoses Not on filedocumented in this encounter
--- OUTSIDE RECORDS SUMMARY | 2022-01-02 08:40 | XMS_ITS | Encounter Summary ---
:1945 Author Organization [facility] Address [address] [place] [address]. 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 documented as of this encounter Plan of Treatment Upcoming Encounters Date Type Specialty Care Team Description 03/20/2022 Virtual Visit Neurology Birgit Whipple MD [address] [place], [place] [phone] (Wo rk) documented as of this encounter Visit Diagnoses Diagnosis Essential tremor - Primary Essential and other specified forms of t remor documented in this encounter Care Teams Production Graphic Designer Relationship Specialty Start Date End Date Chele Mena MD PCP - General Internal Medicine 11/28/12 [facility] [address] [place] [address] Birgit Whipple MD MD Neurology 06/16/14 documented as of this encounter
--- OUTSIDE RECORDS SUMMARY | 2022-01-02 08:40 | XMS_ITS | Encounter Summary ---
:1945 Author Organization [facility] Address [address] [place] [address]. 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
--- OUTSIDE RECORDS SUMMARY | 2022-01-02 08:40 | XMS_ITS | Encounter Summary ---
:1945 Author Organization [place] Address [facility] [place] [address] Care Team Providers Name Role Phone Unavailable Primary Care Provider Unavailable Reason for Visit Rehab Therapy Physical Therapy (Routine) - Closed Specialty Diagnoses / Procedures Referred By Contact Refer red To Contact Physical Therapy Diagnoses MEDICARE left sided disk herniations Andrew Branch Pt Procedures POOL EVAL 1400 [facility] 150 [place] [address] [place] [address] Phone: Referral ID Status Reason Start Date Expiration Date Visits Requ ested Visits Authorized [id number] Closed 07/09/2012 01/05/2013 365 365 Encounter Details Date Type Department Care Team Description 09/24/2012 Hospital Encounter [facility] Surya Branch matthew [address] [place] [address] Rehabilitation Services Bindu Haas, PT [facility] [address] [place] [address] [place] Gabriela ia [address] [place] [address] Social History Tobacco Use Types Packs/Day Years Used Date Smoking Tobacco: Never Assessed Sex Assigned at Date Recorded 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
--- OUTSIDE RECORDS SUMMARY | 2022-01-02 08:40 | XMS_ITS | Encounter Summary ---
:1945 Author Organization [facility] Address [address] [facility] 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 documented in this encounter Plan of Treatment Upcoming Encounters Date Type Specialty Care Team Description 03/20/2022 Virtual Visit Neurology Birgit Whipple MD [address] [place], [place] [phone] (Wo rk) documented as of this encounter Visit Diagnoses Not on filedocumented in this encounter Care Teams Sales Representative Cash Registers Relationship Specialty Start Date End Date Chele Mena MD PCP - General Internal Medicine 11/28/12 [facility] [address] [place] [address] Birgit Whipple MD MD Neurology 06/16/14 documented as of this encounter
--- OUTSIDE RECORDS SUMMARY | 2022-01-02 08:40 | XMS_ITS | Encounter Summary ---
:1945 Author Organization [facility] Address [address] [place] [address]. [place] [address] Care Team Providers Name Role Phone Chele Mena MD Primary Care Provider Reason for Visit Reason Onset Date Comments Medication Question 11/28/2012 Depakote dose clarif ication Encounter Details Date Type Department Care Team Description 11/28/2012 Telephone [facility] Epilepsy Care Jacque Valdez, Medication Question [address] [facility] (Depakote dose [place], [address] [facility] EPILE[facility]Y CARE clarification) [place], [place] [address] [facility] [address] [address] [place] [address] (Wo rk) Social History Tobacco Use Types Packs/Day Years Used Date Smoking Tobacco: Never Smokeless Tobacco: Never Sex Assigned at Date Recorded 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 as of 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 encounter Miscellaneous Notes Telephone Encounter - Jacque Valdez [facility] - 11/28/2012 4:19 PM CDT Script had [...] Virtual Visit Neurology Birgit Whipple MD [address] [place] [phone] (Wo rk) documented as of this encounter Visit Diagnoses Diagnosis 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
--- OUTSIDE RECORDS SUMMARY | 2022-01-02 08:40 | XMS_ITS | Encounter Summary ---
:1945 Author Organization [facility] Address [address] [place] [address]. [place] [address] Care Team Providers Name Role Phone Chele Mena MD Primary Care Provider Birgit Whipple MD Unavailable Reason for Visit Reason Comments Seizures 6 month follow up no episode s Encounter Details Date Type Department Care Team Description 08/16/2015 Office Visit [facility] Sarabjit Localization-related epileps y (H) (Primary Dx); [address] Genao MD [facility], [address] [place] [phone] Social History Tobacco Use Types Packs/Day Years Used Date Smoking Tobacco: Never Smokeless Tobacco: Never Sex Assigned at Date Recorded 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 Epilepsy Syndrome: Localization-related epilepsy unspecified Age of Onset: 54 Etiology : Unknown Other Relevant Dx/ Issues: Inpatient evaluations 01/04 and 02/03. 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 [...] MG capsule Take by mouth daily ??? [id number] D PO Take by mouth daily ??? Ascorbic Acid (VITAMIN C PO) ??? [place]-3 Fatty Acids (FISH OIL PO) ??? Multiple [...] Compliance: compliant all the time Results for CORONARAÚLSHASHI TAVERA ( ) as of 08/16/2015 11:13 Ref. [...] Care Team Description 03/20/2022 Virtual Visit Neurology iBrgit Whipple MD [address] [place] [phone] (Wo rk) documented as of this encounter [...] Signature Valproic Acid 11.4 [facility] Comment: Analysis performed by [facility] [place] [address] Reference range: 6.0 ??to ??20.0 Unit: ug/mL Specimen Anatomical Collection Method Collection Time Receive d Time (Source) Location / / Volume Laterality Blood specimen VENOUS BLOOD / 08/16/2015 10:30 016 8:13 (specimen) Unknown AM CDT PM CDT Birgit Whipple MD LAB - BLOOD ORDERABLES Performing Organization Address City/State/ZIP Code Phon e Number [address] Valproic acid (08/16/2015 10:30 AM CDT) athologist Signature Valproic Acid 70 50 - 100 [facility] Specimen Anatomical Collection Method Collection Time Receive d Time (Source) Location / / Volume Laterality Blood specimen VENOUS BLOOD / 08/16/2015 10:30 016 8:13 (specimen) Unknown AM CDT PM CDT Birgit Whipple MD LAB - BLOOD ORDERABLES Performing Organization Address City/[facility]/ZIP Code Phon e Number [facility] [address] Primidone level (08/16/2015 10:30 AM CDT) athologist Signature Primidone 5.2 [facility] Comment: Analysis performed by [facility] [place] [address] Reference range: 5.0 ??to ??12.0 Unit: ug/ml Specimen Anatomical Collection Method Collection Time Receive d Time (Source) Location / / Volume Laterality Blood specimen VENOUS BLOOD / 08/16/2015 10:30 016 8:13 (specimen) Unknown AM CDT PM CDT Birgit Whipple MD LAB - BLOOD ORDERABLES Performing Organization Address City/State/ZIP Code Phon e Number [facility] [address] [place] [address] [facility] documented in this encounter Visit Diagnoses Diagnosis Localization-related epilepsy (H) - Prim willow 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
--- OUTSIDE RECORDS SUMMARY | 2022-01-02 08:40 | XMS_ITS | Encounter Summary ---
:1945 Author Organization [facility] Address [address] [place] [address]. 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 Plan of Treatment Upcoming Encounters Date Type Specialty Care Team Description 03/20/2022 Virtual Visit Neurology Birgit Whipple MD [address] [place] [phone] (Wo rk) documented as of this encounter Visit Diagnoses Diagnosis 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
--- OUTSIDE RECORDS SUMMARY | 2022-01-02 08:40 | XMS_ITS | Encounter Summary ---
:1945 Author Organization [facility] Address [address] [place] [address]. 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 Plan of Treatment Upcoming Encounters Date Type Specialty Care Team Description 03/20/2022 Virtual Visit Neurology Birgit Whipple MD [address] [place] [address] [phone] (Wo rk) documented as of this encounter Visit Diagnoses Diagnosis 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
--- OUTSIDE RECORDS SUMMARY | 2022-01-02 08:40 | XMS_ITS | Encounter Summary ---
:1945 Author Organization [employer] Address [address] [place] [address]. 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 encounter Last Filed Vital Signs Vital Sign Reading Time Taken Comments Blood Pressure 128/70 02/08/2015 10:33 AM BOILER RELINER Pulse 84 02/08/2015 10:33 AM BOILER RELINER Temperature - - Respiratory Rate - - Oxygen Saturation - - Inhaled Oxygen Concentration - - Weight 118 kg (260 lb 3.2 oz) 02/08/2015 10:33 AM BOILER RELINER Height 170 cm (5' 6.93) 02/08/2015 10:33 AM BOILER RELINER Body Mass Index 40.84 02/08/2015 10:33 AM BOILER RELINER documented in this encounter Progress Notes Birgit Whipple MD - 02/08/2015 11:00 AM CST [facility] Epilepsy [facility] Progress Note Patient: Shashi Armstrong : 1945 Age: [age] year old Today's Office Visit: 02/08/2015 Epilepsy Data: Patient History Primary Epileptologist/Provider: Birgit Whipple M.D. Epilepsy Syndrome: Localization-related epilepsy unspecified Age of Onset: 54 Etiology : Unknown Other Relevant Dx/ Issues: Inpatient evaluations 01/04 and 02/03. 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 [...] MG capsule Take by mouth daily ??? [id number]-[id number]-[id number] D PO Take by mouth daily ??? Ascorbic Acid (VITAMIN C PO) ??? Tucker-3 Fatty Acids (FISH OIL PO) ??? Multiple [...] is midline. Coordination: Bilateral minimal tremor in oqvmey-ct-tfir as well as slight postural tremor bilaterally. [...] of the visit time. Birgit Whipple MD ER RELINER documented in this encounter Plan of Treatment Upcoming Encounters Date Type Specialty Care Team Description 03/20/2022 Virtual Visit Neurology Birgit Whipple MD [address] [place] [address] (Wo rk) documented as of this encounter Visit Diagnoses Diagnosis Essential and other specified forms of t remor - Primary documented in this encounter Care Teams Checkering Machine Operator Relationship Specialty Start Date End Date Chele Mena MD PCP - General Internal Medicine 11/28/12 [facility] [address] [place] [address] Birgit Whipple MD MD Neurology 06/16/14 documented as of this encounter
--- OUTSIDE RECORDS SUMMARY | 2022-01-02 08:40 | XMS_ITS | Encounter Summary ---
:1945 Author Organization [employer] Address [facility] [place] [address] Care Team Providers Name Role Phone Unavailable Primary Care Provider Unavailable Reason for Visit Rehab Therapy Physical Therapy (Routine) - Closed Specialty Diagnoses / Procedures Referred By Contact Refer red To Contact Physical Therapy Diagnoses MEDICARE left sided disk herniations Andrew Branch Pt Procedures POOL EVAL [address] [facility] [address] [place] [address] [place] [address] Phone: Referral ID Status Reason Start Date Expiration Date Visits Requ ested Visits Authorized [id number] Closed 07/09/2012 01/05/2013 365 365 Encounter Details Date Type Department Care Team Description 08/22/2012 Hospital Encounter [facility] Surya Branch matthew [address] [place] [address] Rehabilitation Services Bindu Haas, PT [facility] [address] [place] [address] [place] [address] [place] [address] Social History Tobacco Use Types Packs/Day Years Used Date Smoking Tobacco: Never Assessed Sex Assigned at Date Recorded 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 Progress Notes Bindu Haas, PT - 08/22/2012 12:47 PM CDT AQUATIC PHYSICAL THERAPY EXERCISE LOG (TRUNK) Date 07/09/12 Bindu Haas, PT Session 1 08/15/12 Bindu Haas ,PT 08/20/12 Bindu Haas, PT 08/22/12 Bindu Haas, PT Warm Up Ambulation (Forward/Side/Back/April/) 2 f,s,b with ICT SUPPORT AND TEST ENGINEERS 2 f/s/b with ICT SUPPORT AND TEST ENGINEERS 2 f/s/b no ICT SUPPORT AND TEST ENGINEERS 2 f/s/b Stretching/ROM Chin Tucks CROM (Flex/Ext/SB/Rot/All) Shoulder (Shrugs/Rolls) [...] X 2 B 30 sec x2 B Quad Hip Flexor (Kneel) Piriformis (Seated/Stand) Trunk ROM (Flex/Ext/SB/Rot/All) BAD SAMI Strengthening Abdominal Sets/ Pelvic Tilt With exercises, educated in core activation With exercises, reminders for core With exercises With exercises Shoulder (Flex/Ext, Abd/Add, IR/ER, Circles) Away from wall with no paddles, x 10 each Away from wall, open paddles x 10 Away from wall with open paddles x 12 Horizon (Abd/Add, Diagonals) X 10 X 10 X 12 Rowing Arms UE PNF (D1/D2) [...] wall, x 15 each except figure 8 Heel/Toe Raises Step Ups (Forward, Lateral) Noodle Push Downs Stir the Pot/Punches with Dumbells Sit to Stand at Bench Aerobic Fast Walking Bike/Ski/Christopher/All Corner bike x 3 min, needed A to prevent floating of LE's up Corner x 3 min Balance Narrow Base of Support Tandem Stand Single Leg Stance Heel/Toe Walking 3 Step and Stop Braiding Cool Down Ambulation 3 f with no UE support 2 f no UE support X 2f Independence Dangle documented in this encounter Plan of Treatment Upcoming Encounters Date Type Specialty Care Team Description 03/20/2022 Virtual Visit Neurology Birgit Whipple MD [address] [place] [address] (Wo rk) documented as of this encounter Visit Diagnoses Not on filedocumented in this encounter
--- OUTSIDE RECORDS SUMMARY | 2022-01-02 08:40 | XMS_ITS | Encounter Summary ---
:1945 Author Organization [employer] Address [address] [place] [address]. 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 documented as of this encounter Plan of Treatment Upcoming Encounters Date Type Specialty Care Team Description 03/20/2022 Virtual Visit Neurology Birgit Whipple MD [address] [place], [place] [address] (Wo rk) documented as of this encounter Visit Diagnoses Diagnosis Essential tremor - Primary Essential and other specified forms of t remor documented in this encounter Care Teams Kitchen Manager Relationship Specialty Start Date End Date Chele Mena MD PCP - General Internal Medicine 11/28/12 [facility] [address] [place] [address] Birgit Whipple MD MD Neurology 06/16/14 documented as of this encounter
--- OUTSIDE RECORDS SUMMARY | 2022-01-02 08:41 | XMS_ITS ---
:1945 Author Care Team Providers Name Role Phone ORA ARIAS MD Primary Care Provider [phone] Allergies Code Code System Name Reaction Severity Status Onset 923726 RxNorm Bee Pollen ? ? Active ? 2193 RxNorm Ceftriaxone ? ? Active ? 626318 RxNorm Trileptal ? ? Active ? 553245 RxNorm Vimpat ? ? Active ? Medications [...] to Urinate; Overactive Jero ddTORITO RamirezC: [address] [facility] [place] [address], Ph. Social History Tobacco Smoking Status Never Smoker Vaccine List Vaccine Type COVID-19, mRNA, LNP-S, PF, 30 mcg/0.3 mL dose (AdvaliantBioNTech) 04/16/2020 05/07/2020 11/30/2020 COVID-19, mRNA, LNP-S, PF, 30 mcg/0.3 mL dose, sridhar-sucrose ([employer]valiantBioCultureMap) 06/20/2021 pneumococcal conjugate PCV 13 04/07/2015 pneumococcal [...]
--- OUTSIDE RECORDS SUMMARY | 2022-01-02 08:41 | XMS_ITS | Clinical Summary ---
:1945 Author Organization [employer] [place] [address] Care Team Providers Name Role Phone Chele Mena MD Primary Care Provider Mae Cheng AuD Unavailable [phone] Allergies Active Allergy Reactions Severity Noted Date [...] tabletIndications: Partial epilepsy with intractable epilepsy (HC) Jhpzp-3-XHW-EPA-Fish Take 1,000 mg by 0 Active Oil [...] Drug rash 01/03/2010 05/02/2012 Delirium 12/24/2009 05/02/2012 Encounters Date Type Specialty Care Team Description 11/20/2021 Lab Requisition Anahi Carmona MD from Last 3 Months Immunizations Name Administration Dates Next Due AMB INFLUENZA, IIV4 (AGE=>6MOS) MDV 11/09/2015, 12/09/2014, 11/09/2013, (Flu Clinic Only) 11/21/2012, 11/21/2012 COVID-19 vaccine ([employer] 05/07/2020, 04/16/2020 30mcg/0.3mL) PF, MDV Influenza A [...] Name Comments Other Father at 51yo of [place]. Cancer-breast Maternal Aunt mothers twin dx age [...] Comments Blood Pressure 153/85 03/09/2021 9:54 AM RN ACUTE CARE Pulse 78 03/09/2021 9:54 AM RN ACUTE CARE Temperature 36.7 ??C (98 ??F) 03/09/2021 9:54 AM RN ACUTE CARE Respiratory Rate 20 05/09/2020 9:51 AM CDT Oxygen Saturation 97% 03/09/2021 9:54 AM RN ACUTE CARE Inhaled Oxygen Concentration - - Weight 125.5 kg (276 lb 9.6 oz) 03/09/2021 9:54 AM RN ACUTE CARE Height 162.6 cm (5' 4) 04/02/2018 10:19 AM RN ACUTE CARE Body Mass Index 47.48 04/02/2018 10:19 AM RN ACUTE CARE Plan of Treatment Health Maintenance Due Date Last Done Comments Depression screening for age 12+ 1957 BMI (ht and wt on same day) for 09/01/1963 age 18+ Hepatitis C screening for age 0709[birth year]01/1963 18-79 DEXA/DXA scan for age 65+ 2010 Medicare Wellness for age 65+ 2010 COVID-19 vaccine series (4 - 01/25/2021 11/30/2020, 021, Booster for Pfizer series) 04/16/2020 Influenza for age 65+ 10/26/2021 11/14/2018, 01/25/2018, 12/09/2017, Additional history exists Tetanus booster 12/05/2028 12/05/2018, 11/21/2012, 11/21/2012 Tdap Completed 11/21/2012 Pneumococcal series for age 65+ Completed 10/23/2017, 03/28, 12/01/2013, Additional history exists Zoster (shingles) series for age Completed 11/13/2018, , 50+ 10/23/2017, Additional history exists Medical Devices Implanted Type Area Stitchdown Thread Laster Device Shelf Model / Identifier Expiration Serial / Date Lot [id number] Left: [employer] - 10/13/2014 [id number] / Implanted: Qty: 1 on 01/29/2011 at [facility] Breast Inamed [id number] / Explanted: at [facility] (Quantity not on file) Description: [employer] Implnt Mammary 700cc - [id number] Left: Breast J And J Men tor [id number] / Implanted: Qty: 1 on 08/28/2011 at [facility] [employer] [id number] / Explanted: at [facility] (Quantity not on file) [id number] 600cc Memorygel Rnd High Smooth Silcn Left: Breast J And J [place] 10/11/2021 [id number] / Implanted: Qty: 1 on 02/12/2018 by Arin Joshi MD at [facility] Corporation [id number] / Explanted: at [facility] (Quantity not on file) [id number] Procedures Procedure Name Priority Date/Time Associated Diagnosis Comme nts LAB TRACKING EVENT Routine 11/20/2021 2:15 PM CDT PATH TISSUE EXAM Routine 11/20/2021 2:15 PM Resul ts for this CDT procedure are i n the results section. from Last 3 Months Results LAB TRACKING EVENT (11/20/2021 2:15 PM CDT) Specimen Anatomical Collection Method Collection Time Receive d Time (Source) Location / / Volume Laterality Other (Other) Client Collect / 11/20/2021 2:15 PM 10/27 8:28 Unknown CDT PM CDT Anahi Carmona MD LAB BILL ONLY Performing Organization Address City/State/ZIP Code Phon e Number [facility] [address] [place] [address] LABORATORY-CENTRAL 2000 LABORATORY PATH TISSUE EXAM (11/20/2021 2:15 PM CDT) Component Value Ref Test Analysis Performed At [facility] gist Range Method Time Signature Case Report Pathology Report ?Case: [id number] ? 11/21/2021 [facility] Authorizing Provider: ??Anahi Mathis MD ??Collected: ? 11/20/2021 1415 ? 10:49 AM HEALTH Ordering Location: ? [facility] LAB ?Received: ?11/20/20212058 ? CDT TRINH NINOC Pathologist: ? John Huffman, ? ENTRAL ? MD ? LABORATORY Specimen: ?Splenic Flexu re Polyp ? Final A) COLON, SPLENIC FLEXURE, POLYPECTOMY: 11/21/2021 [facility] Electronically Diagnosis 1. Inflammatory polyp 10:49 AM HEALTH signed by 2. Negative for dysplasia CDT LABO ANITA Huffman, HERI Orellana MD on 10/27 at 10:49 A M Clinical .Ms. Gandara is 11/21/2021 [facility] Information a 76 y.o. who 10:49 AM HEALTH presents for CDT LABORATORY-C high risk colon ENTRAL cancer LABORATORY surveillance due to a personal history of adenoma Gross A) Received in formalin are 3 ni mucosal fragments ranging from 4 mm to 7 mm in greatest dimension, which are entirely submitted in one cassette. It is labeled with the patient's name and designated colon - splenic flexure polyp. 11/21/2021 [facility] Description 10:49 AM HEALTH Christopher Gonzalez Raymundo 11/20/2021 9:13 PM CDT LABORATORY-C ENTRAL LABORATORY Microscopic The final 11/21/2021 [facility] Description diagnosis is 10:49 AM HEALTH based on CDT LABORATORY-C microscopic ENTRAL examination of LABORATORY appropriate sections of all specimens. Additional 11/21/2021 [facility] Information Interpreted at [facility], Central Laboratory - [address] [place] [address] 10:49 AM HEALTH CDT LABORATORY-C ENTRAL LABORATORY Specimen Anatomical Collection Method Collection Time Receive d Time (Source) Location / / Volume Laterality Other (Splenic 11/20/2021 2:15 PM 022 8:59 Flexure Polyp) CDT PM CDT Anahi Carmona MD PATHOLOGY/CYTOLOGY Performing Organization Address City/State/ZIP Code Phon e Number [facility] [address] [place] [address] LABORATORY-CENTRAL 2000 LABORATORY from Last 3 Months Additional Health Concerns Infection Onset Date Last Indicated CLOSTRIDIUM DIFFICILE 04/03/2018 04/03/2018 Insurance Payer Benefit Plan / Subscriber ID Effective Dates Phone Addre ss Type Group MEDICARE PART B MEDICARE PART [id number] 2013-Presen ATTN: CLAIMS - HB USE ONLY B HB ONLY t [address] [place] [address] MEDICARE PART A MEDICARE PART [id number] 2010-Presen ATTN: CLAIMS - HB USE ONLY A HB ONLY t [address] [place] [phone] MEDICARE - PB MEDICARE PB [id number] 2018-Presen ATTN : CLAIMS USE ONLY ONLY t [address] [place] [address] MEDICA MEDICA SELECT [id number] 2018-Presen [address] [address] [place] [address] MEDICARE PPS HC MEDICARE [id number] 2010-Presen [address] [place] [address] ArslanKisha raines Personal/Famil Self 1945 [phone] (Home) [place] [address] Advance Directives Documents on File Type Date 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
[2022-01-02 13:13] LABS: Cholesterol* 190 mg/dL (90-199); HDL Cholesterol* 41 mg/dL (>=50); LDL Cholesterol Calculated 94 mg/dL (<100); Triglycerides* 275 mg/dL (40-149)
== END 2022-01-02 13:24 | disposition home or self-care (01) ==
PROVIDERS: PCP Internal Medicine; Visit Provider Internal Medicine
DX: E78.5 Hyperlipidemia, unspecified (principal); E11.9 Type 2 diabetes mellitus without complications; I10 Essential (primary) hypertension
CPT/HCPCS: 80061

== ENCOUNTER 2022-04-12 14:59 | Outpatient (CLI) | payer MEDICARE, OTHER, SELFPAY ==
[2022-04-12 22:21] LABS: Creatinine Urine 108.3 mg/dL
[2022-04-12 22:24] LABS: Microalbumin Creatinine Ratio 0 mg/g (0-30); Microalbumin Urine < 1 mg/dL
== END 2022-04-12 15:00 | disposition home or self-care (01) ==
PROVIDERS: PCP Internal Medicine; Visit Provider Internal Medicine
DX: E11.9 Type 2 diabetes mellitus without complications (principal)
CPT/HCPCS: 82043; 82570

== ENCOUNTER 2023-07-08 09:59 | Outpatient (CLI) | payer MEDICARE, OTHER, SELFPAY ==
--- OUTSIDE RECORDS SUMMARY | 2023-07-08 10:04 | XMS_ITS | Encounter Summary ---
Author Name Unknown Organization [employer] Address [address] [place] [address]. [place] [address] Care Team Providers Care Inspector Eyeglass Name Role Phone Chele Mena MD Primary Care Provider Birgit Whipple MD Unavailable Dragan Ritter MD Unavailable Birgit Whipple MD Unavailable Reason for Visit * Reason Comments Medication Refill PREGABALIN 50 MG CAP JYOTI Encounter Details Date Type Department Care Team (Late st Contact Info) Description 05/07/2023 Refill M [facility] [address] [facility], [address] [place] [phone] Birgit Whipple MD [address] [place], [place] [address] Medication Refill (PREGABALIN 50 MG CAPSULE) Social History Tobacco Use Types Packs/Day Years Used Date Smoking Tobacco: Never Smokeless Tobacco: Never Alcohol Use Standard Drinks/Week Comments No 0 (1 standard drink = 0.6 oz pur e alcohol) PHQ-2 Answer Date Recorded PHQ-2 Score 0 04/26/2022 Adolescent Education Answer Date Record ed Getting School Help Needed Not on file 11/16 Sex and Gender Information Value Date Recorded Sex Assigned at Female 04/04/2021 11:57 AM SPECIAL EFFECTS DESIGNER Gender Identity Female 04/04/2021 11:57 AM SPECIAL EFFECTS DESIGNER Sexual Orientation Not on file documented as of this encounter Miscellaneous Notes * Telephone Encounter - Shayna Bullard RN - 05/08/2023 5:24 AM CDT PREGABALIN 50 MG CAPSULE Last Written Prescription Date: 11/09/2022 Last Fill Quantity: 360, # refills: 1 Last Office Visit : 04/26/2022 Future Office visit: 05/23/2023 Routing refill request to provider for review/approval because: Drug not on the [facility], [facility] or Health refill protocol or controlled substance Shayna Bullard RN Central Triage Red Flags/Med Refills documented in this encounter Plan of Treatment Upcoming Encounters Date Type Department Care Team (Late st Contact Info) Description 05/21/2024 11:00 AM CDT Office Visit Physicians [facility] Epilepsy Care [address] [facility], [address] [place] [address] Birgit Whipple MD [address] [place] [address] documented as of this encounter Visit Diagnoses Diagnosis 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 (H) documented in this encounter Additional Health Concerns Assessment Noted Time PHQ-9 Depression Total Score: 3 04/27/19 23 7:00 AM SPECIAL EFFECTS DESIGNER documented as of this encounter Care Teams Inspector Eyeglass Relationship Specialty Start Date End Date Chele Mena MD [facility] [address] [place] [address] PCP - General Internal Medicine 11/28/12 Birgit Whipple MD [facility] [address] [place] [address] Neurology 06/16/14 Dragan Ritter MD [facility] [address] [place] [address] Urology 06/10/17 Birgit Whipple MD [address] [place] [address] Assigned Neuroscience Provider 04/03/20 documented as of this encounter
--- OUTSIDE RECORDS SUMMARY | 2023-07-08 10:04 | XMS_ITS | Encounter Summary ---
Author Name Unknown Organization [place] Address [address] [place], [place] [address]. [place] [address] Care Team Providers Care Senior C Software Developer Name Role Phone Chele Mena MD Primary Care Provider Birgit Whipple MD Unavailable Dragan Ritter MD Unavailable Birgit Whipple MD Unavailable Reason for Visit * Reason Onset Date Comments Refill Request 06/05/2023 Pregabalin 50 MG Capsules - APPROVED Encounter Details Date Type Department Care Team ([facility] st Contact Info) Description 06/05/[address] [facility] Epilepsy Care [address], [address] [place] [address] Birgit Whipple MD [address] [place] [address] Refill Request (Pregabalin 50 MG Capsules - APPROVED) Social History Tobacco Use Types Packs/Day Years Used Date Smoking Tobacco: Never Smokeless Tobacco: Never Alcohol Use Standard Drinks/Week Comments No 0 (1 standard drink = 0.6 oz pur e alcohol) PHQ-2 Answer Date Recorded PHQ-2 Score 0 05/23/2023 Adolescent Education Answer Date Record ed Getting School Help Needed Not on file 11/16 Sex and Gender Information Value Date Recorded Sex Assigned at Female 04/04/2021 11:57 AM CREDIT PRODUCT ANALYST Gender Identity Female 04/04/2021 11:57 AM CREDIT PRODUCT ANALYST Sexual Orientation Not on file documented as of this encounter Miscellaneous Notes * Telephone Encounter - Silva Kim CMA - 06/05/2023 11:11 AM CDT Images from the original note were not included. documented in this encounter Plan of Treatment Upcoming Encounters Date Type Department Care Team (Late st Contact Info) Description 05/21/2024 11:00 AM CDT Office Visit [facility] Epilepsy [facility] [address] [facility], [facility] [address] [place] [phone] Birgit Whipple MD [address] [place] [address] documented as of this encounter Visit Diagnoses Not on filedocumented in this encounter Additional Health Concerns Assessment Noted Time PHQ-9 Depression Total Score: 3 04/27/19 23 7:00 AM CREDIT PRODUCT ANALYST documented as of this encounter Care Teams Senior C Software Developer Relationship Specialty Start Date End Date Chele Mena MD [facility] [address] [place] [address] PCP - General Internal Medicine 11/28/12 Birgit Whipple MD [facility] [address] [place] [address] Neurology 06/16/14 Dragan Ritter MD [facility] [address] [place] [address] Urology 06/10/17 Birgit Whipple MD [address] [place], [place] [phone] Assigned Neuroscience Provider 04/03/20 documented as of this encounter
--- OUTSIDE RECORDS SUMMARY | 2023-07-08 10:04 | XMS_ITS | Referral Summary ---
Author Name Unknown Organization [facility] Address [address] [place], [place] [address] [address] Care Team Providers Care Candle Pourer Name Role Phone Chele Mena MD Primary Care Provider Birgit Whipple MD Unavailable [phone] Dragan Ritter MD Unavailable Birgit Whipple MD Unavailable Encounters Date Type Department Care Team Description 06/06/2023 MyC Medical Advice [facility] [address] [facility], [facility] [address] [place] [address] Birgit Whipple MD 06/05/2023 Refill [facility] [address] [place], [place] [address], [address] [place] [address] Birgit Whipple MD Refill Request (Pregabalin 50 MG Capsules - APPROVED) 05/31/2023 Refill M [facility] [address] [facility], [address] [place] [address] Birgit Whipple MD Refill Request 05/24/2023 1:30 PM CDT Lab [facility] [address] [place] [address] Focal epilepsy (H); Neuropathy 05/23/2023 Travel 05/23/2023 11:00 AM CDT Office Visit M [facility] [address] [facility], [address] [place] [address] Birgit Whipple MD Focal epilepsy (H) (Primary Dx); Neuropathy 05/16/2023 Travel 05/07/2023 Refill M [facility] [address] [facility], [address] [place] [address] Birgit Whipple MD Medication Refill (PREGABALIN 50 MG CAPSULE) 04/16/2023 Refill M [facility] [address] [facility], [address] [place] [address] Birgit Whipple MD Medication Refill (PRIMIDONE 250 MG TABLET/ DIVALPROEX SOD ER 250 MG TAB) from Last 3 Months Allergies Active Allergy Reactions Criticality Noted Date Comments Bee Venom 06/19/2013 Lacosamide 11/28/2012 Delirium. Lacosamide Other (See Comments) 02/21/2016 Oxcarbazepine Rash Low 11/28/2012 Oxcarbazepine Rash Low 02/21/2016 Seasonal Allergies 06/19/2013 Medications Medication Sig Dispensed Refills Start Date End Date Status simvastatin (ZOCOR) 20 MG tablet Take by mouth daily Act hortencia metoprolol (LOPRESSOR) 50 MG tablet Take 50 mg by mouth 2 times daily Active lisinopril (PRINIVIL,ZESTRIL) 10 MG tablet Take 10 mg by mouth daily Active Ascorbic Acid (VITAMIN C PO) Active Mercedes-3 Fatty Acids (FISH OIL PO) Active Multiple Vitamin (DAILY MULTIVITAMIN PO) Active aspirin 81 MG tablet Take by mouth daily Activ e LANsoprazole (PREVACID) 30 MG capsule Take by mouth daily Activ e ZHILUJT-[id number]-G ITAMIN D PO Take by mouth daily Acti ve amoxicillin (AMOXIL) 500 MG capsule Take 2,000 mg by mouth daily TAKE BEFORE DENTIST APPOINTMENTS Active clotrimazole (LOTRIMIN) 1 % cream Apply topically 2 times daily as needed Active naproxen sodium 220 MG capsule Take 220 mg by mouth 2 times daily Active ACETAMINOPHEN PO Active acetaminophen-codei ne (TYLENOL #3) 300-30 MG per tablet Take 1-2 tablets by mouth daily as needed for moderate pain Active blood glucose monitoring (SOFTCLIX) lancets 1 each by In Vitro route Use to test blood sugar four times daily or as directed. Active Insulin Pen Needle (PEN NEEDLES 05/10) 31G X 5 MM MISC Active Glucose Blood (ACCU-CHEK BRAULIO PLUS ) Active insulin aspart (NOVOLOG FLEXPEN) 100 UNIT/ML soln Inject Subcutaneous 3 times daily (with meals) Active insulin glargine (LANTUS SOLOSTAR) 100 UNIT/ML PEN Inject Subcutaneous At Bedtime Active Cholecalciferol (VITAMIN D3) 1000 units CAPS 1,000 capsules Active oxybutynin (DITROPAN-XL) 5 MG 24 hr tablet Take 5 mg by mouth 03/11/2017 Acti ve nystatin (MYCOSTATIN) 488037 UNIT/GM external powder APPLY 1 APPLICATION TOPICALLY TWICE DAILY. 04/03/2017 Active insulin glargine (BASAGLAR KWIKPEN) 100 UNIT/ML pen Inject Subcutaneous daily Active tolterodine ER (DETROL LA) 4 MG 24 hr capsule Take 4 mg by mouth daily Active LEVEMIR FLEXTOUCH 100 UNIT/ML pen Inject 12 Units Subcutaneous At Bedtime 12 UNIT (0.12 ML) SUBCUTANEOUSLY EVERY DAY AT BEDTIME FOR DIABETES MELLITUS PEN PLEASE 03/06/2022 Active primidone (MYSOLINE) 250 MG tabletIndications:T remor Take 1 tablet (250 mg) by mouth every morning 90 tablet 3 04/23/2023 Active divalproex sodium extended-release (DEPAKOTE ER) 250 MG 24 hr tabletIndications:L ocalization-related epilepsy (H) Take 3 tablets (750 mg) by mouth 2 times daily - Oral 540 tablet 3 04/23/2023 Active pregabalin (LYRICA) 50 MG capsuleIndications: 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 (H) Take 1 capsule (50 mg) by mouth daily (with lunch) AND 1 capsule (50 mg) every evening. 180 capsule 1 06/03/2023 Active pregabalin (LYRICA) 100 MG capsuleIndications: 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 (H) Take 1 capsule (100 mg) by mouth every morning 90 capsule 1 06/03/2023 Active Active Problems Problem Noted Date Diagnosed Date Morbid obesity 04/26/2022 Epilepsy 02/10/2014 Immunizations Name Administration Dates Next Due Flu, Unspecified 01/25/2018 [id number] Novel Flu 11/17/2009 Hepatitis A (ADULT 19+) 01/25/2021 Influenza (High Dose) 3 franklyn nt vaccine 11/14/2018,12/09/2017,11/09/2013 Influenza Vaccine 65+ (FLUAD) 11/22/2020 Influenza Vaccine, 6+MO IM (QUADRIVALENT W/PRESERVATIVES) 11/09/2015,12/09/2014,11/09/2013,2012 Pneumo Conj 13-V (2010&after) 04/07/2015 Pneumococcal 23 valent 10/23/2017,2013,09/08/2009,2009 TDAP (Adacel,Boostrix) 11/21/2012 Td (Adult), Adsorbed 12/05/2018 Typhoid IM 01/25/2021 Zoster recombinant adjuvante d (SHINGRIX) 11/13/2018 Zoster vaccine, live 12/09/2012 Social History Tobacco Use Types Packs/Day Years Used Date Smoking Tobacco: Never Smokeless Tobacco: Never Tobacco Cessation:Counseling Given: Not Answered Alcohol Use Standard Drinks/Week Comments No 0 (1 standard drink = 0.6 oz pur e alcohol) PHQ-2 Answer Date Recorded PHQ-2 Score 0 05/23/2023 Adolescent Education Answer Date Record ed Getting School Help Needed Not on file 11/16 Sex and Gender Information Value Date Recorded Sex Assigned at Female 04/04/2021 11:57 AM SENIOR FIRMWARE ENGINEER Gender Identity Female 04/04/2021 11:57 AM SENIOR FIRMWARE ENGINEER Sexual Orientation Not on file Last Filed Vital Signs Vital Sign Reading Time Taken Comments Blood Pressure 125/82 05/23/2023 10:59 AM CDT Pulse 80 05/23/2023 10:59 AM CDT Temperature 36 ??C (96.8 ??F) 05/23/2023 10:59 AM CDT Respiratory Rate 16 06/10/2017 11:01 AM CDT Oxygen Saturation - - Inhaled Oxygen Concentration - - Weight 125.6 kg (277 lb) 05/23/2023 10:59 AM CDT Height 162.6 cm (5' 4) 05/23/2023 10:59 AM CDT Body Mass Index 47.55 05/23/2023 10:59 AM CDT Plan of Treatment Upcoming Encounters Date Type Department Care Team (Late st Contact Info) Description 05/21/2024 11:00 AM CDT Office Visit [facility] [address], [address] [place] [address] Birgit Whipple MD [address] [place] [address] Procedures Procedure Name Priority Date/Time Associated Diagnosis Comments PREGABALIN LEVEL Routine 05/24/2023 1:35 PM CDT Neuropathy VALPROIC ACID FREE AND TOTAL Routine 05/24/2023 1:35 PM CDT Focal epilepsy (H) BASIC METABOLIC PANEL Routine 04/17/2018 5:47 AM SENIOR FIRMWARE ENGINEER COLONOSCOPY Routine 09/05/2007 9:35 AM CDT from Last 3 Months or Most Recently Relevant to Health Maintenance Results * (ABNORMAL) Valproic Acid Free & Total (05/24/2023 1:35 PM CDT) Valproic Acid Free 10 7 - 23 ug/mL 05/25/2023 3:20 PM CDT [facility] Valproic Acid Total 51 50 - 125 ug/mL 05/25/2023 3:20 PM CDT [facility] Valproic Acid, Percent Free 19(H) 5 - 18 % 05/25/2023 3:20 PM CDT [facility] Comment: INTERPRETIVE INFORMATION: VPA-percent Free Valproic Acid, Total Therapeutic Range: 50-125 ug/mL Toxic: Greater than 150 ug/mL Valproic Acid, Free Therapeutic Range: 7-23 ug/mL Toxic: Greater than 30 ug/mL VPA-percent Free Therapeutic Range: 5-18 percent Free valproic acid may be important to monitor in patients with altered or unpredictable protein binding capacity because valproic acid exhibits variable, dose-dependent protein binding. Valproic acid is also subject to drug-drug interactions due to displacement of protein binding. Calculating percent free attempts to minimize differences in test cross-reactivity and may be useful in dose optimization. Adverse effects may include headache, somnolence and dizziness. Performed By: [facility] [address] [place] [id number] Boating Safety Officer: Zeeshan Richard MD, PhD CLIA Number: [id number] Blood BLOOD SPECIMEN / Unknown Venipuncture / Unknown 05/24/2023 1:35 PM CDT 05/24/2023 1:47 PM CDT Birgit Whipple MD LAB - BLOOD ORDMichael WYATT Performing Organization Address City/[facility] Co de Phone Number [address] [address], [facility] [phone] * Pregabalin Level: Random (05/24/2023 1:35 PM CDT) [facility] Pregabalin 4.2 ug/mL 05/26/2023 10:37 AM CDT [facility] Comment: INTERPRETIVE INFORMATION: Pregabalin, Serum/Plasma The therapeutic range is based on serum pre-dose (trough) draw at steady-state concentration. Therapeutic and toxic ranges are not well established. Proposed Dose-Related Range: 2-10 ug/mL. Adverse effects may include peripheral edema, allergic reactions, dizziness and somnolence. This test was developed and its performance characteristics determined by [facility]. It has not been cleared or approved by the US Food and Drug Administration. This test was performed in a CLIA certified laboratory and is intended for clinical purposes. Performed By: [facility] [address] [place] [id number] Boating Safety Officer: Zeeshan Richard MD, PhD CLIA Number: [id number] Blood BLOOD SPECIMEN / Unknown Venipuncture / Unknown 05/24/2023 1:35 PM CDT 05/24/2023 1:47 PM CDT Birgit Whipple MD LAB - BLOOD [place] [facility] [address] [place] [address], [facility] [phone] * (ABNORMAL) Basic metabolic panel (04/17/2018 5:47 AM SENIOR FIRMWARE ENGINEER) Sodium 133(L) 136 - 145 mmol/L 04/17/2018 3:26 PM [facility] Potassium 4.7 3.5 - 5.0 mmol/L 04/17/2018 3:26 PM [facility] Chloride 98 98 - 107 mmol/L 04/17/2018 3:26 PM [facility] Carbon Dioxide (CO2) 24 22 - 31 mmol/L 04/17/2018 3:26 PM [facility] Anion Gap 11 5 - 18 mmol/L 04/17/2018 3:26 PM [facility] Glucose 131(H) 70 - 125 mg/dL 04/17/2018 3:26 PM [facility] Calcium 9.5 8.5 - 10.5 mg/dL 04/17/2018 3:26 PM [facility] Urea Nitrogen 12 8 - 28 mg/dL 04/17/2018 3:26 PM [facility] Creatinine 0.69 0.60 - 1.10 mg/dL 04/17/2018 3:26 PM [facility] GFR Estimate If Black >60 >60 mL/min/1.7 3m2 04/17/2018 3:26 PM [facility] GFR Estimate >60 >60 mL/min/1.7 3m2 04/17/2018 3:26 PM [facility] Blood specimen (specimen) STRUCTURE OF RIGHT UPPER LIMB / Unknown Venipuncture / Unknown 04/17/2018 5:47 AM SENIOR FIRMWARE ENGINEER 04/17/2018 2:22 PM [facility] Narrative [facility] - 04/17/2018 3:26 PM SENIOR FIRMWARE ENGINEER Fasting Glucose reference range is 70-99 mg/dL per [place] Diabetes Association (ADA) guidelines. Montserrat Fall MD LAB - BLOOD ORDER [facility] [address] [place] [address], [facility] [address] [place] [address] * COLONOSCOPY (09/05/2007 9:35 AM CDT) COLONOSCOPY Endoscopy Patient Name: Kisha Gandara ? Gender: F ? Procedure Date: 09/05/2007 9:35 AM ? N: [id number] ? Date of : 1945 ? Age: 62 ? Admit Type: Outpatient ? Attending MD: Navi Chairez MD ? Procedure: ? Colonoscopy Indications: ? Average risk screening for malignant neoplasm in the ? colon Providers: ? Navi Chairez MD Referring MD: ?Binu Kong MD Medicines: ? Fentanyl 100 micrograms IV, Midazolam 2 mg IV, [...] alert and oriented. Airway Examination: ? normal oropharyngeal airway and neck mobility. ? Respiratory Examination: [...] to administration of medications, the ? patient was re-assessed for adequacy to receive ? sedatives. The heart rate, respiratory rate, oxygen ? saturations, blood pressure, adequacy of pulmonary ? ventilation, and response to care were monitored ? throughout the procedure. The physical status of the ? patient was re-assessed after the procedure. ? After obtaining informed consent, the colonoscope was ? passed under direct vision. Throughout the procedure, ? the patient's blood pressure, pulse, and oxygen ? saturations were monitored continuously. The [id number] ? #[id number] was introduced through the anus and advanced to ? the cecum, identified by appendiceal orifice & IC valve. ? The colonoscopy was performed without difficulty. The ? patient tolerated the procedure well. The quality of the ? prep was good. ? Findings: ? The digital rectal exam was normal. Multiple small-mouthed diverticula ? were found in the sigmoid colon. A sessile polyp was found in the cecum. ? The polyp was 3 mm in size. This was biopsied with a hot forceps for ? histology. The rectum, descending colon, splenic flexure, transverse ? colon, hepatic flexure, ascending colon and ileocecal valve appeared ? normal. The retroflexed view of the anal verge was normal and showed no ? anal or rectal abnormalities. ? Impression: ?- Diverticulosis sigmoid colon. ? - A 3 mm polyp in the cecum. Tissue was removed. ? - The rectum, descending colon, splenic flexure, ? transverse colon, hepatic flexure, ascending colon and ? ileocecal valve are normal. Recommendation: ?- Discharge patient to home (ambulatory). ? - Patient should telephone endoscopist in 1 week. ? - If polyp is adenomatous repeat colonoscopy in 3 years. ? If polyp is hyperplastic then hemoccults q yr and flex ? sigmoidoscopy in 3 yrs. ? - Return to primary care physician PRN. ? R Mihaela Gutierrez Navi Chairez MD Signed Date: 09/05/2007 10:13 AM Number of Addenda: 0 I was physically present for the entire viewing portion of the exam. Note initiated on 09/05/2007 9:33 AM RADIOLOGY RESULTS COLONOSCOPY RADIOLOG Y RESULTS 09/05/2007 9:35 AM CDT Binu Kong MD PROCEDURES RADIOLOGY RESULTS from Last 3 Months or Most Recently Relevant to Health Maintenance Care Teams Candle Pourer Relationship Specialty Start Date End Date Chele Mena MD [facility] [address] [place] [address] PCP - General Internal Medicine 11/28/12 Birgit Whipple MD [facility] [address] [place] [address] Neurology 06/16/14 Dragan Ritter MD [facility] [address] [place] [address] Urology 06/10/17 Birgit Whipple MD [address] [place] [address] Assigned Neuroscience Provider 04/03/20
--- OUTSIDE RECORDS SUMMARY | 2023-07-08 10:04 | XMS_ITS | Encounter Summary ---
Author Name Unknown Organization [facility] Address [address] [place], [place] [address] [address] Care Team Providers Care Power Sewing Machine Operator Name Role Phone Chele Mena MD Primary Care Provider Birgit Whipple MD Unavailable [phone] Dragan Ritter MD Unavailable Birgit Whipple MD Unavailable [phone] Reason for Visit * Reason Onset Date Comments Refill Request 05/31/2023 Encounter Details Date Type Department Care Team (Late st Contact Info) Description 05/31/2023 Refill [facility] [address] [facility], [address] [place] [phone] Birgit Whipple MD [address] [place], [place] [id number] Refill Request Social History Tobacco Use Types Packs/Day Years [...] Sex Assigned at Female 04/04/2021 11:57 AM COACH PROFESSIONAL ATHLETES Gender Identity Female 04/04/2021 11:57 AM COACH PROFESSIONAL ATHLETES Sexual Orientation Not on file documented as of this encounter Miscellaneous Notes * Telephone Encounter - Mitch Tobar RN - 06/03/2023 2:58 PM CDT Call from . He notes patient has only one 50 mg capsule left. Call placed to pharmacy. They confirmed the insurance permits 3 capsules per day. Prescriptions adjusted and pended, routed to Dr. Cline (coverage for ). * Telephone Encounter - Sophia Sutton - 06/03/2023 10:32 AM CDT What is the concern that needs to be addressed by a nurse? Kisha Gandara's , Storm is calling, requesting a call back to discuss Pregabalin script. Patient states that there seems to be a discrepancy with the insurance. Storm can be reached at [phone]. May a detailed message be left on voicemail? YES Date of last office visit: 05/23/2023 Message routed to: PRABHA KUMAR * Telephone Encounter - Dave Hughes - 05/31/2023 4:28 PM CDT What is the concern that needs to be addressed by a nurse? Please called [facility]. [facility] will not approve the medication. The Insurance says they can not approve no more than 3 50mg tablets of Pregablin. The need a prescribetion for 100mg tablets for the morning and 50mg tablets forthe afternoon and bedtime. Can you please follow up with [facility]. May a detailed message be left on voicemail? Yes Date of last office visit: Message routed to: Prabha waddell documented in this encounter Plan of Treatment Upcoming Encounters Date Type Department Care Team (Late st Contact Info) Description 05/21/2024 11:00 AM CDT Office Visit [facility] [address], [address] [place] [address] Birgit Whipple MD [address] [place] [address] documented as of this encounter Visit Diagnoses Diagnosis 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 (H) documented in this encounter Additional Health Concerns Assessment Noted Time PHQ-9 Depression Total Score: 3 04/27/19 23 7:00 AM COACH PROFESSIONAL ATHLETES documented as of this encounter Care Teams Power Sewing Machine Operator Relationship Specialty Start Date End Date Chele Mena MD [facility] [address] [place] [address] PCP - General Internal Medicine 11/28/12 Birgit Whipple MD [facility] [address] [place] [address] Neurology 06/16/14 Dragan Ritter MD [facility] [address] [place] [address] Urology 06/10/17 Birgit Whipple MD [address] [place] [address] Assigned Neuroscience Provider 04/03/20 documented as of this encounter
--- OUTSIDE RECORDS SUMMARY | 2023-07-08 10:04 | XMS_ITS | Encounter Summary ---
Author Name Unknown Organization [facility] Address [facility] [place] [address] Care Team Providers Care Gi Technician Name Role Phone Chele Mena MD Primary Care Provider Birgit Whipple MD Unavailable [phone] Dragan Ritter MD Unavailable [phone] Birgit Whipple MD Unavailable [phone] Encounter Details Date Type Department Care Team (Latest Contact Info) Description 05/23/2023 Travel Social History Tobacco Use Types Packs/Day [...] Sex Assigned at Female 04/04/2021 11:57 AM BLOOM CONVEYOR OPERATOR Gender Identity Female 04/04/2021 11:57 AM BLOOM CONVEYOR OPERATOR Sexual Orientation Not on file documented as of this encounter Plan of Treatment Upcoming Encounters Date Type Department Care Team (Late st Contact Info) Description 05/21/2024 11:00 AM CDT Office Visit [facility] [address], [address] [place] [phone] Birgit Whipple MD [address] [place] [address] documented as of this encounter Visit Diagnoses Not on filedocumented in this encounter Additional Health Concerns Assessment Noted Time PHQ-9 Depression Total Score: 3 04/27/19 23 7:00 AM BLOOM CONVEYOR OPERATOR documented as of this encounter Care Teams Gi Technician Relationship Specialty Start Date End Date Chele Mena MD [facility] [address] [place] [address] PCP - General Internal Medicine 11/28/12 Birgit Whipple MD [facility] [address] [place] [address] Neurology 06/16/14 Dragan Ritter MD [facility] [address] [place] [address] Urology 06/10/17 Birgit Whipple MD [address] [place] [address] Assigned Neuroscience Provider 04/03/20 documented as of this encounter
--- OUTSIDE RECORDS SUMMARY | 2023-07-08 10:04 | XMS_ITS | Clinical Summary ---
Author Name Unknown Organization [facility] Address [address] [place], [place] [address]. [place] [address] Care Team Providers Care Baby Sitter Name Role Phone Chele Mena MD Primary Care Provider Birgit Whipple MD Unavailable [phone] Dragan Ritter MD Unavailable Birgit Whipple MD Unavailable [phone] Allergies Active Allergy Reactions Criticality Noted Date [...] Active Ascorbic Acid (VITAMIN C PO) Active [place]-3 Fatty Acids (FISH OIL PO) Active Multiple Vitamin (DAILY MULTIVITAMIN PO) Active aspirin 81 MG tablet Take by mouth daily Activ e LANsoprazole (PREVACID) 30 MG capsule Take by mouth daily Activ e GEOOCYB-MBYURFGYH-I ITAMIN D PO Take by mouth daily [...] by mouth 03/11/2017 Acti ve nystatin (MYCOSTATIN) 527436 UNIT/GM external powder APPLY 1 APPLICATION TOPICALLY [...] Diagnosed Date Morbid obesity 04/26/2022 Epilepsy 02/10/2014 Encounters Date Type Department Care Team Description 06/06/2023 MyC Medical Advice M [facility] Epilepsy [facility] [address], [address] [address] Birgit Whipple MD 06/05/2023 Refill M [facility] Epilepsy [facility] [address], [address] [address] Birgit Whipple MD Refill Request (Pregabalin 50 MG Capsules - APPROVED) 05/31/2023 Refill M [facility] Epilepsy [facility] [address], [address] [address] Birgit Whipple MD Refill Request 05/24/2023 1:30 PM CDT Lab [facility] [id number] [place] [phone] Focal epilepsy (H); Neuropathy 05/23/2023 11:00 AM CDT Office Visit Lexie [facility] Epilepsy [facility] [address], [address] [address] Birgit Whipple MD Focal epilepsy (H) (Primary Dx); Neuropathy 05/23/2023 Travel 05/16/2023 Travel 05/07/2023 Refill M [facility] Epilepsy [facility] [address], [address] [address] Birgit Whipple MD Medication Refill (PREGABALIN 50 MG CAPSULE) 04/16/2023 Refill M [facility] Epilepsy [facility] [address], [address] [address] Birgit Whipple MD Medication Refill (PRIMIDONE 250 MG TABLET/ DIVALPROEX SOD ER 250 MG TAB) from Last 3 Months Immunizations Name Administration Dates Next Due Flu, Unspecified 01/25/2018 [id number] Novel Flu 11/17/2009 Hepatitis A (ADULT 19+) [...] Sex Assigned at Female 04/04/2021 11:57 AM FURNACE UNLOADER Gender Identity Female 04/04/2021 11:57 AM FURNACE UNLOADER Sexual Orientation Not on file Last Filed [...] 05/21/2024 11:00 AM CDT Office Visit M [facility] [address], [address] [place] [address] Birgit Whipple MD [address] [place] [address] Health Maintenance Due Date Last Done Comments ADVANCE CARE PLANNING 1945 ANNUAL REVIEW OF HM ORDERS 1945 DEXA 1945 LIPID 1945 HEPATITIS C SCREENING 09/01/1963 RSV VACCINE ( & 60+) (1 - 1-dose 60+ series) 2005 MEDICARE ANNUAL WELLNESS VISIT 2010 MAMMO SCREENING 06/10/2018 06/10/2017 (Not Needed) GLUCOSE 04/17/2021 04/17/2018 COVID-19 Vaccine ( season) 2023 12/12/2022, 08/02/2022, 11/25/2021, Additional history exists FALL RISK ASSESSMENT 05/22/2024 05/23/2023, 04/11/2021, 04/06/2019, Additional history exists DTAP/TDAP/TD IMMUNIZATION (3 - Td or Tdap) 12/05/2028 12/05/2018, 11/21/2012, 11/21/2012 COLONOSCOPY Discontinued 09/05/2007 COLORECTAL CANCER SCREENING Discontinued Pneumococcal Vaccine: 65+ Years Completed 10/23/2017, 04/07/2015, 12/01/2013, Additional history exists ZOSTER IMMUNIZATION Completed 11/13/2018, 08/07/2018, 10/23/2017, Additional history exists INFLUENZA VACCINE Completed 12/05/2022, , 11/22/2020, Additional history exists PHQ-2 (once per calendar year) Completed 05/23/2023, 04/26/2022, 04/26/2022, Additional history exists CT COLONOGRAPHY Discontinued FIT Discontinued FLEX SIG Discontinued HPV IMMUNIZATION Aged Out No longer e ligible based on patient's age to complete this topic IPV IMMUNIZATION Aged Out No longer e ligible based on patient's age to complete this topic MENINGITIS IMMUNIZATION Aged Out No l onger eligible based on patient's age to complete this topic RSV MONOCLONAL ANTIBODY Aged Out No l onger eligible based on patient's age to complete this topic sDNA (Cologuard) Discontinued Procedures Procedure Name Priority Date/Time Associated Diagnosis Comments PREGABALIN LEVEL Routine 05/24/2023 1:35 PM CDT Neuropathy VALPROIC ACID FREE AND TOTAL Routine 05/24/2023 1:35 PM CDT Focal epilepsy (H) BASIC METABOLIC PANEL Routine 04/17/2018 5:47 AM FURNACE UNLOADER COLONOSCOPY Routine 09/05/2007 9:35 AM CDT from [...] include headache, somnolence and dizziness. Performed By: [facility] [address] [place] [address] Embroidery Designer: Zeeshan Richard MD, PhD CLIA Number: [id number] Blood BLOOD SPECIMEN / Unknown Venipuncture / Unknown 05/24/2023 1:35 PM CDT 05/24/2023 1:47 PM CDT Birgit Whipple MD LAB - BLOOD ORDE YOSELIN Performing Organization Address [facility] Co de Phone Number [address] [address], [facility] [phone] * Pregabalin Level: Random (05/24/2023 1:35 PM CDT) [facility] Pregabalin 4.2 ug/mL 05/26/2023 10:37 AM CDT [employer] Comment: INTERPRETIVE INFORMATION: Pregabalin, Serum/Plasma The therapeutic range is based on serum pre-dose (trough) draw at steady-state concentration. Therapeutic and toxic ranges are not well established. Proposed Dose-Related Range: 2-10 ug/mL. Adverse effects may include peripheral edema, allergic reactions, dizziness and somnolence. This test was developed and its performance characteristics determined by [facility]. It has not been cleared or approved by the US Food and Drug Administration. This test was performed in a CLIA certified laboratory and is intended for clinical purposes. Performed By: [facility] [address] [place] [address] Embroidery Designer: Zeeshan Richard MD, PhD CLIA Number: [id number] Blood BLOOD SPECIMEN / Unknown Venipuncture / Unknown 05/24/2023 1:35 PM CDT 05/24/2023 1:47 PM CDT Birgit Whipple MD LAB - BLOOD ORDMichael [facility]YATT Performing Organization Address [facility]/ZIP Co de Phone Number [address] [address], [facility] [phone] * (ABNORMAL) Basic metabolic panel (04/17/2018 5:47 AM FURNACE UNLOADER) Sodium 133(L) 136 - 145 mmol/L 04/17/2018 3:26 PM [facility] Potassium 4.7 3.5 - 5.0 mmol/L 04/17/2018 3:26 PM [facility] Chloride 98 98 - 107 mmol/L 04/17/2018 3:26 PM [facility] Carbon Dioxide (CO2) 24 22 - 31 mmol/L 04/17/2018 3:26 PM [facility] Anion Gap 11 5 - 18 mmol/L 04/17/2018 3:26 PM [facility] Glucose 131(H) 70 - 125 mg/dL 04/17/2018 3:26 PM [facility] Calcium 9.5 8.5 - 10.5 mg/dL 04/17/2018 3:26 PM [facility] Urea Nitrogen 12 8 - 28 mg/dL 04/17/2018 3:26 PM [facility] Creatinine 0.69 0.60 - 1.10 mg/dL 04/17/2018 3:26 PM [facility] GFR Estimate If Black >60 >60 mL/min/1.7 3m2 04/17/2018 3:26 PM [facility] GFR Estimate >60 >60 mL/min/1.7 3m2 04/17/2018 3:26 PM [facility] Blood specimen (specimen) STRUCTURE OF RIGHT UPPER LIMB / Unknown Venipuncture / Unknown 04/17/2018 5:47 AM FURNACE UNLOADER 04/17/2018 2:22 PM FURNACE UNLOADER Narrative [facility] - 04/17/2018 3:26 PM [facility] Fasting Glucose reference range is 70-99 mg/dL per [place] Diabetes Association (ADA) guidelines. Montserrat Fall MD LAB - BLOOD ORDER [facility] [address] [address], [facility] [address] [address] * COLONOSCOPY (09/05/2007 9:35 AM CDT) COLONOSCOPY Endoscopy Patient Name: Kisha Gandara ? Gender: F ? Procedure Date: 09/05/2007 9:35 AM ? Date of : 1945 ? [...] oxygen ? saturations were monitored continuously. The [facility] ? #[id number] was introduced through the anus and advanced [...] Recently Relevant to Health Maintenance Care Teams Baby Sitter Relationship Specialty Start Date End Date Chele Mena MD [facility] [address] [place] [address] PCP - General Internal Medicine 11/28/12 Birgit Whipple MD [facility] [address] [place] [address] Neurology 06/16/14 Dragan Ritter MD [facility] [address] [place] [address] Urology 06/10/17 Birgit Whipple MD [address] [place] [address] Assigned Neuroscience Provider 04/03/20
--- OUTSIDE RECORDS SUMMARY | 2023-07-08 10:04 | XMS_ITS | Encounter Summary ---
Author Name Unknown Organization [facility] Address [facility], [id number] [facility] [place] [address] Care Team Providers Care [employer] Baseball Coach Name Role Phone Chele Mena MD Primary Care Provider Birgit Whipple MD Unavailable rDagan Ritter MD Unavailable Birgit Whipple MD Unavailable Reason for Visit * Reason Comments Medication Refill PRIMIDONE 250 MG TAB LET DIVALPROEX SOD ER 250 MG TAB Encounter Details Date Type Department Care Team ([facility] st Contact Info) Description 04/16/2023 Refill M [facility] Ep[facility]psy Care [address] [facility], [facility] [address] [place] [address] Birgit Whipple MD [address] [place], [place] [address] Medication Refill (PRIMIDONE 250 MG TABLET/ DIVALPROEX SOD ER 250 MG TAB) Social History Tobacco Use Types Packs/Day Years [...] Sex Assigned at Female 04/04/2021 11:57 AM MANUFACTURING PROJECT ENGINEER Gender Identity Female 04/04/2021 11:57 AM MANUFACTURING PROJECT ENGINEER Sexual Orientation Not on file documented as of this encounter Miscellaneous Notes * Telephone Encounter - Shayna Bullard RN - 04/19/2023 1:27 PM CST PRIMIDONE 250 MG TABLET Last Written Prescription Date: 04/26/2022 Last Fill Quantity: 93, # refills: 3 Last Office Visit : 04/26/2022 Future Office visit: None Routing refill request to provider for review/approval because: Drug not on the [facility] or [facility] refill protocol or controlled substance DIVALPROEX SOD ER 250 MG TAB Last Written Prescription Date: 04/26/2022 Last Fill Quantity: 540 # refills: 3 Last Office Visit : 04/26/2022 Future Office visit: None Routing refill request to provider for review/approval because: Refer to Provider for review and refills Shayna Bullard RN Central Triage Red Flags/Med Refills FACTURING PROJECT ENGINEER documented in this encounter Plan of Treatment Upcoming Encounters Date Type Department Care Team (Late st Contact Info) Description 05/21/2024 11:00 AM CDT Office Visit M [facility] [address] [facility], [address] [place] [address] Birgit Whipple MD [address] [place] [id number] documented as of this encounter Visit Diagnoses Diagnosis Tremor Abnormal involuntary movements 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 simple partial seizures, without mention of intractable epilepsy documented in this encounter Additional Health Concerns Assessment Noted Time PHQ-9 Depression Total Score: 3 04/27/19 23 7:00 AM MANUFACTURING PROJECT ENGINEER documented as of this encounter Care Teams [employer] Baseball Coach Relationship Specialty Start Date End Date Chele Mena MD [facility] [address] [place] [address] PCP - General Internal Medicine 11/28/12 Birgit Whipple MD [facility] [address] [place] [address] Neurology 06/16/14 Dragan Ritter MD [facility] [address] [place] [address] Urology 06/10/17 Birgit Whipple MD [address] [place] [address] Assigned Neuroscience Provider 04/03/20 documented as of this encounter
--- OUTSIDE RECORDS SUMMARY | 2023-07-08 10:04 | XMS_ITS | Encounter Summary ---
Author Name Unknown Organization [facility] Address [address] [place] [address]. [place] [address] Care Team Providers Care Gimp Tacker Name Role Phone Chele Mena MD Primary Care Provider Birgit Whipple MD Unavailable Dragan Ritter MD Unavailable Birgit Whipple MD Unavailable [phone] Reason for Visit * Reason Comments Follow Up Encounter Details Date Type Department Care Team ([facility] st Contact Info) Description 05/23/2023 11:00 AM CDT Office Visit M [facility] [address] [facility], [facility] [address] [place] [address] Birgit Whipple MD [address] [place], [place] [id number] Focal epilepsy (H) (Primary Dx); Neuropathy Social History Tobacco Use Types Packs/Day Years [...] Sex Assigned at Female 04/04/2021 11:57 AM GASTROENTEROLOGY TEACHER Gender Identity Female 04/04/2021 11:57 AM GASTROENTEROLOGY TEACHER Sexual Orientation Not on file documented as of this encounter Last Filed Vital Signs Vital Sign Reading Time Taken Comments Blood Pressure 125/82 05/23/2023 10:59 AM CDT Pulse 80 05/23/2023 10:59 AM CDT Temperature 36 ??C (96.8 ??F) 05/23/2023 10:59 AM CDT Respiratory Rate - - Oxygen Saturation - - Inhaled Oxygen Concentration - - Weight 125.6 kg (277 lb) 05/23/2023 10:59 AM CDT Height 162.6 cm (5' 4) 05/23/2023 10:59 AM CDT Body Mass Index 47.55 05/23/2023 10:59 AM CDT documented in this encounter Progress Notes * Birgit Whipple MD - 05/23/2023 11:00 AM CDT [facility] Epilepsy Care Progress Note Patient: Kisha Gandara : 1945 Age: [age] year old Today's Office Visit: 05/23/2023 Epilepsy Data: Patient History Primary Epileptologist/Provider: (Colette) Birgit Whipple M.D. Epilepsy Syndrome: (P) Localization-related epilepsy unspecified Age of Onset: (P) 54 Etiology : (P) Unknown Other Relevant Dx/ Issues: (P) Inpatient evaluations 01/04 [address] 02/[address] [facility] consulation 12/04 for nonconvulsive status epilepticus. History of Depakote-induced hyperammonemia. Tests/Surgery History Last EEG: (P) 01/30/10 Last MRI: (P) 01/10/10 Seizure Record Seizure Type 1: (P) Complex partial seizures unspecified Seizure Type 2: (P) Tonic-clonic seizures History of Present Illness: Ms. Beard presents to the clinic for a follow up on her epilepsy and tremors. Seizures have been controlled. Her tremors are better, usually happen in the morning before she takes her medications, it happens occasionally. She is taking primidone 250 mg in the morning. She is taking Depakote 750 mg bid. She is also taking Lyrica 100-50-50 mainly for neuropathy and primidone 250 mg am for tremors. Pins and needles is better on Lyrica. She denies recent illnesses, ER visits, falls. ASD levels 217/23: Depakote: Pregabalin: 2.6 Primidone: 5.4 Current Outpatient Medications Medication Sig Dispense Refill ACETAMINOPHEN PO Ascorbic Acid (VITAMIN C PO) aspirin 81 MG tablet Take by mouth daily blood glucose monitoring (SOFTCLIX) lancets 1 each by In Vitro route Use to test blood sugar four times daily or as directed. NSZYNXE-[id number]-ZPACLWT D PO Take by mouth daily Cholecalciferol (VITAMIN D3) 1000 units CAPS 1,000 capsules clotrimazole (LOTRIMIN) 1 % cream Apply topically 2 times daily as needed divalproex sodium extended-release (DEPAKOTE ER) 250 MG 24 hr tablet Take 3 tablets (750 mg) by mouth 2 times daily - Oral 540 tablet 3 Glucose Blood (ACCU-CHEK BRAULIO PLUS ) Insulin Pen Needle (PEN NEEDLES 05/10) 31G X 5 MM [facility] LEV[facility]IR FLEXTOUCH 100 UNIT/ML pen Inject 12 Units Subcutaneous At Bedtime 12 UNIT (0.12 ML) SUBCUTANEOUSLY EVERY DAY AT BEDTIME FOR DIABETES MELLITUS PEN PLEASE lisinopril (PRINIVIL,ZESTRIL) 10 MG tablet Take 10 mg by mouth daily metoprolol (LOPRESSOR) 50 MG tablet Take 50 mg by mouth 2 times daily Multiple Vitamin (DAILY MULTIVITAMIN PO) nystatin (MYCOSTATIN) 168817 UNIT/GM external powder APPLY 1 APPLICATION TOPICALLY TWICE DAILY. [place]-3 Fatty Acids (FISH OIL PO) pregabalin (LYRICA) 50 MG capsule TAKE 2 CAPSULES BY MOUTH IN THE MORNING, 1 CAP AT NOON, AND 1 CAPIN THE EVENING. 360 capsule 3 primidone (MYSOLINE) 250 MG tablet Take 1 tablet (250 mg) by mouth every morning 90 tablet 3 simvastatin (ZOCOR) 20 MG tablet Take by mouth daily tolterodine ER (DETROL LA) 4 MG 24 hr capsule Take 4 mg by mouth daily acetaminophen-codeine (TYLENOL #3) 300-30 MG per tablet Take 1-2 tablets by mouth daily as needed for moderate pain amoxicillin (AMOXIL) 500 MG capsule Take 2,000 mg by mouth daily TAKE BEFORE DENTIST APPOINTMENTS insulin aspart (NOVOLOG FLEXPEN) 100 UNIT/ML soln Inject Subcutaneous 3 times daily (with meals) insulin glargine (BASAGLAR KWIKPEN) 100 UNIT/ML pen Inject Subcutaneous daily (Patient not taking: Reported on 04/26/2022) insulin glargine (LANTUS SOLOSTAR) 100 UNIT/ML PEN Inject Subcutaneous At Bedtime (Patient not taking: Reported on 04/11/2021) LANsoprazole (PREVACID) 30 MG capsule Take by mouth daily naproxen sodium 220 MG capsule Take 220 mg by mouth 2 times daily oxybutynin (DITROPAN-XL) 5 MG 24 hr tablet Take 5 mg by mouth Medication Notes: AED Medication Compliance: compliant most of the time Other Issues: Is patient safe to drive: Yes Exam: BP 125/82 Pulse 80 Temp 96.8 ??F (36 ??C) (Temporal) Ht 5' 4 (162.6 cm) Wt 277 lb (125.6 kg) BMI 47.55 kg/m?? Wt Readings from Last 5 Encounters: 05/23/23 277 lb (125.6 kg) 04/26/22 270 lb (122.5 kg) 04/06/19 269 lb 12.8 oz (122.4 kg) 02/06/18 271 lb 6.4 oz (123.1 kg) 06/10/17 268 lb 6.4 oz (121.7 kg) General Appearance: Alert, awake, cooperative, pleasant, NAD Gait: steady Attention Span: Normal Language/speech: no aphasia or dysarthria Extraocular Movements: Normal Coordination: b/l mild hand tremors in finger to nose Facial Sensation: Normal Facial Strength: Normal Motor Exam: normal tone, bulk and strength 5/5 bilaterally 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 She is taking Depakote 750 mg bid. She is also taking Lyrica 100-50-50 mainly for neuropathy and primidone 250 mg am for tremors. 2. Tremors: essential tremors, tremors worsened on Depakote and improved on primidone. She occasionally gets them before she takes her primidone in the morning. - Continue Depakote 750 mg bid - Continue primidone 250 mg am. - Continue Lyrical 100-50-50 mg per day - Obtain Depakote and pregabalin levels - Follow-up in 1 year As described above, I met with the patient for 20 minutes and during this time counseling was greater than 50% of the visit time. Birgit Whipple MD documented in this encounter Plan of Treatment Upcoming Encounters Date Type Department Care Team (Late st Contact Info) Description 05/21/2024 11:00 AM CDT Office Visit M Physicians [facility] Ep[facility]psy Care [address], [address] [place] [address] Birgit Whipple MD [address] [place] [address] documented as of this encounter Results * Pregabalin Level: Random (05/24/2023 1:35 PM CDT) Pregabalin 4.2 ug/mL 05/26/2023 10:37 AM CDT [employer] Comment: INTERPRETIVE INFORMATION: Pregabalin, Serum/Plasma The therapeutic range is based on serum pre-dose (trough) draw at steady-state concentration. Therapeutic and toxic ranges are not well established. Proposed Dose-Related Range: 2-10 ug/mL. Adverse effects may include peripheral edema, allergic reactions, dizziness and somnolence. This test was developed and its performance characteristics determined by [facility]. It has not been cleared or approved by the US Food and Drug Administration. This test was performed in a CLIA certified laboratory and is intended for clinical purposes. Performed By: [facility] [address] [place] [address] Cold Molding Press Operator: Zeeshan Richard MD, PhD CLIA Number: [id number] Blood BLOOD SPECIMEN / Unknown Venipuncture / Unknown 05/24/2023 1:35 PM CDT 05/24/2023 1:47 PM CDT Birgit Whipple MD LAB - BLOOD CYRUS [facility] [employer] [address] [place] [address] [phone] * (ABNORMAL) Valproic Acid Free & Total (05/24/2023 1:35 PM CDT) Valproic Acid Free 10 7 - 23 ug/mL 05/25/2023 3:20 PM CDT [facility] Valproic Acid Total 51 50 - 125 ug/mL 05/25/2023 3:20 PM CDT [facility] Valproic Acid, Percent Free 19(H) 5 [...] include headache, somnolence and dizziness. Performed By: [facility] [address] [address] Cold Molding Press Operator: Zeeshan Richard MD, PhD CLIA Number: [id number] Blood BLOOD SPECIMEN / Unknown Venipuncture / Unknown 05/24/2023 1:35 PM CDT 05/24/2023 1:47 PM CDT Birgit Whipple MD LAB - BLOOD [facility] [employer] [address] [place] [phone], [facility] [phone] documented in this encounter Visit Diagnoses Diagnosis Focal epilepsy (H)- Primary Localization-related (focal) (partial) epilepsy and epileptic syndromes with simple partial seizures, without mention of intractable epilepsy Neuropathy Mononeuritis of unspecified site documented in this encounter Additional Health Concerns Assessment Noted Time PHQ-9 Depression Total Score: 3 04/27/19 23 7:00 AM GASTROENTEROLOGY TEACHER documented as of this encounter Care Teams Gimp Tacker Relationship Specialty Start Date End Date Chele Mena MD [facility] [address] [place] [address] PCP - General Internal Medicine 11/28/12 Birgit Whipple MD [facility] [address] [place] [address] Neurology 06/16/14 Dragan Ritter MD [facility] [address] [place] [address] Urology 06/10/17 Birgit Whipple MD [address] [place] [address] Assigned Neuroscience Provider 04/03/20 documented as of this encounter
--- OUTSIDE RECORDS SUMMARY | 2023-07-08 10:04 | XMS_ITS | Encounter Summary ---
Author Name Unknown Organization [place] Address [facility] [place] [address] Care Team Providers Care Director Of Manufacturing Name Role Phone Chele Mena MD Primary Care Provider Birgit Whipple MD Unavailable [phone] Dragan Ritter MD Unavailable [phone] Birgit Whipple MD Unavailable [phone] Encounter Details Date Type Department Care Team (Latest Contact Info) Description 05/16/2023 Travel Social History Tobacco Use Types Packs/Day [...] Sex Assigned at Female 04/04/2021 11:57 AM LINING CASER Gender Identity Female 04/04/2021 11:57 AM LINING CASER Sexual Orientation Not on file documented as of this encounter Plan of Treatment Upcoming Encounters Date Type Department Care Team (Late st Contact Info) Description 05/21/2024 11:00 AM CDT Office Visit [facility] Ep[facility] [address], [address] [place] [address] Birgit Whipple MD [address] [place] [address] documented as of this encounter Visit Diagnoses Not on filedocumented in this encounter Additional Health Concerns Assessment Noted Time PHQ-9 Depression Total Score: 3 04/27/19 23 7:00 AM LINING CASER documented as of this encounter Care Teams Director Of Manufacturing Relationship Specialty Start Date End Date Chele Mena MD [facility] [address] [place] [address] PCP - General Internal Medicine 11/28/12 Birgit Whipple MD [facility] [address] [place] [address] Neurology 06/16/14 Dragan Ritter MD [facility] [address] [place] [address] Urology 06/10/17 Birgit Whipple MD [address] [place] [address] Assigned Neuroscience Provider 04/03/20 documented as of this encounter
--- OUTSIDE RECORDS SUMMARY | 2023-07-08 10:04 | XMS_ITS | Clinical Summary ---
Author Name Unknown Organization [facility] Address [place], [place] [address] Care Team Providers Care Mechanic Senior Name Role Phone Chele Mena MD Primary Care Provider Mae Cheng AuD Unavailable [phone] Allergies Active Allergy Reactions Criticality Noted Date Comments Bee Pollen Edema Medium 12/19/2009 Ceftriaxone Rash Medium 04/11/2018 Lacosamide Confusion,Other - De scribe In Comment Field 01/03/2010 Oxcarbazepine Rash,Hives High 12/27/2009 Medications Medication Sig Dispensed Refills Start Date End Date Status simvastatin (ZOCOR) 20 mg tablet Take 20 mg by mouth at bedtime. Active primidone (MYSOLINE) 250 mg tablet Take 250 mg by mouth at bedtime. 0 04/07/2014 Active divalproex (DEPAKOTE ER) 250 mg Extended-Release tabletIndications: Partial epilepsy with intractable epilepsy (HC) Take 3 tablets by mouth 2 times daily. 60 tablet 0 04/23/2015 Active Bcppv-8-FYS-EPA-Fi sh Oil (FISH OIL) 1,000 mg (120 mg-180 mg) cap Take 1,000 mg by mouth once daily. Active cholecalciferol (VITAMIN D) 1,000 unit tablet Take 1,000 Units by mouth once daily. Active nystatin powder (MYCOSTATIN) powder Apply 1 Strip topically to affected area(s) 2 times daily. Active aspirin (ECOTRIN) 81 mg enteric coated tablet Take 81 mg by mouth once daily with a meal. Active acetaminophen (TYLENOL) 325 mg tablet Take 325 mg by mouth every 4 hours if needed. Max acetaminophen dose: 4000mg in 24 hrs. Active metoprolol tartrate (LOPRESSOR) 50 mg tablet Take 50 mg by mouth 2 times daily. 1 03/10/2018 Active multivitamin-digital forensics examiner als therapeutic tablet Take 1 tablet by mouth once daily. Active diphenhydrAMINE (BENADRYL) 25 mg tabletIndications: Itching Take 1 tablet by mouth every 6 hours if needed for Itching or Other (Specify) (allergy symptoms). 0 04/11/2018 Active lisinopril (PRINIVIL; ZESTRIL) 20 mg tabletIndications: Hypertension, unspecified type Take 0.5 tablets by mouth once daily. 0 04/11/2018 Active LANTUS SOLOSTAR U-100 INSULIN 100 unit/mL (3 mL) penIndications:Typ e 2 diabetes mellitus without complication, with long-term current use of insulin (HC) Inject 8 Units subcutaneous before bedtime. Product desired:BASAGLAR 1 box 04/11/2018 Active camphor-menthol, 0.5%-0.5%, (SARNA ANTI-ITCH) lotionIndications: Itching Apply topically to affected area(s) 3 times daily if needed. 1 Bottle 04/11/2018 Active pregabalin (LYRICA) 50 mg capsuleIndications :Neuropathy Take 1 capsule by mouth 2 times daily. At 1800 & 2200 10 capsule 04/11/2018 Active pregabalin (LYRICA) 50 mg capsuleIndications :Neuropathy Take 2 capsules by mouth once daily. morning 5 capsule 04/11/2018 Active meloxicam (MOBIC) 7.5 mg tabletIndications: Lumbar facet arthropathy TAKE 1 TABLET BY MOUTH ONCE DAILY NEEDED FOR MORE SIGNIFICANT PAIN. 30 tablet 06/23/2019 Active tolterodine (DETROL LA) 4 mg Extended-Release capsuleIndications :Urinary urgency TAKE 1 CAPSULE BY MOUTH EVERY DAY 90 Capsule 06/08/2021 Active Active Problems Problem Noted Date Diagnosed Date Paroxysmal atrial fibrillation 04/05/2018 Infection of breast implant 04/04/2018 C. difficile colitis 04/04/2018 Morbid obesity 04/04/2018 Hypomagnesemia 04/04/2018 Septic shock 04/02/2018 Breast implant capsular contracture 02/12/2018 Complex renal cyst 03/11/2017 Diabetes mellitus type 2, uncontrolled 6 Knee osteoarthritis 01/28/2013 Sensorineural hearing loss, bilateral 12/23/2012 Left Sided Disk Herniations L2-3 and L3-4 2012 Lumbar facet arthropathy 05/02/2012 DDD (degenerative disc disease), lumbar 05/03/19 13 History of breast cancer in female 01/02/2012 Acquired absence of breast and nipple 08/28/2011 PARTIAL EPILEPSY NEC INTRACTABLE 12/19/2009 Breast cancer, stage 3 12/19/2009 Overview: S/P double mastectomy. First chemotherapy 12/13/09 HTN (hypertension) 12/19/2009 Pure hypercholesterolemia 12/19/2009 GERD (gastroesophageal reflux disease) 0 Resolved Problems Problem Noted Date Diagnosed Date Resolved Date Sepsis 04/20/2015 04/04/2018 DM2 (diabetes mellitus, type 2) 04/20/2015 04/04/2018 Personal history of malignan t neoplasm of breast 01/29/2011 05/02/2012 Confusion state 01/30/2010 05/02/2012 Anemia, unspecified 01/26/2010 05/03/19 13 ENCEPHALOPATHY METABOLIC 01/10/201009/2012 Serum ammonia increased due to depakote 01/10/2010 05/02/2012 Hyperammonemia 01/07/2010 05/02/2012 Hyponatremia 01/03/2010 05/02/2012 Overview: Thought due to antiseizure meds Drug rash 01/03/2010 05/02/2012 Delirium 12/24/2009 05/02/2012 Immunizations Name Administration Dates Next Due AMB INFLUENZA, IIV4 (AGE=>6M OS) MDV (Flu Clinic Only) 11/09/2015,12/09/2014,11/09/2013,2012,11/21/2012 COVID-19 vaccine (Skills Matter 30mcg/0.3mL) PF, MDV 05/07/2020,04/16/2020 Influenza A (H1N1), Inactiva phill (Age >=3 Years) 11/17/2009 Influenza Virus, Unspecified 01/25/2018 Influenza, High-dose Inactivated 11/14/2018,11/25,11/09/2013 Influenza, IIV3 (Age 6-35 mos) 11/21/2012 Influenza, IIV4 11/09/2015 Pneumococcal Poly,23-Valent (Pneumovax) 10/23/2017,12/01/2013,09/08/2009,2009 Pneumococcal conj 13-Valent (Prevnar 13) 04/07/2015 Td (Age >=7 Years) 12/05/2018 Td, Preservative Free (age > = 7 Years) 11/21/2012 Tdap 11/21/2012 Tetanus/Diptheria 11/21/2012 Zoster (Shingrix-RZV, recombinant) 11/13/2018,,10/23/2017 Zoster (Zostavax-ZVL, live) 12/09/2012 Family History Medical History Relation Name Comments Other Father at 51yo of [place]. Cancer-breast Maternal Aunt mothers twin dx age 45? Cancer-breast Maternal Grandmother dx age 40 Other Mother at 90yo. H /O CVA Cancer-breast Sister dx age 56 Cancer-colon No Family History Cancer-ovarian No Family History Cancer-prostate No Family History Relation Name Status Comments Father Maternal Aunt Maternal Grandmother Mother Sister Social History Tobacco Use Types Packs/Day Years Used Date Smoking Tobacco: Never Smokeless Tobacco: Never Tobacco Cessation:Counseling Given: Yes Alcohol Use Standard Drinks/Week Comments Not Currently 0 (1 standard drink = 0.6 oz pur e alcohol) rare Social Connections Answer Date Recorded Frequency of Communication with Friends and Fami ly Not on file 02/25/2021 Financial Resource Strain Answer Date R ecorded Difficulty of Paying Living Expenses Not on file 02/25/2021 Difficulty of Paying Living Expenses Not on file 02/25/2021 Sex and Gender Information Value Date Recorded Sex Assigned at Not on file Gender Identity Not on file Sexual Orientation Not on file Obstetrics History Last Filed Vital Signs Vital Sign Reading Time Taken Comments Blood Pressure 153/85 03/09/2021 9:54 AM SHIRT MAKER Pulse 78 03/09/2021 9:54 AM SHIRT MAKER Temperature 36.7 ??C (98 ??F) 03/09/2021 9:54 AM SHIRT MAKER Respiratory Rate 20 05/09/2020 9:51 AM CDT Oxygen Saturation 97% 03/09/2021 9:54 AM SHIRT MAKER Inhaled Oxygen Concentration - - Weight 125.5 kg (276 lb 9.6 oz) 03/09/2021 9:54 AM SHIRT MAKER Height 162.6 cm (5' 4) 04/02/2018 10:1 9 AM SHIRT MAKER Body Mass Index 47.48 04/02/2018 10:19 AM SHIRT MAKER Plan of Treatment Health Maintenance Due Date Last Done Comments Depression screening for age 12+ 1957 BMI (ht and wt on same day) for age 18+ 09/01/1963 Hepatitis C screening for ag e 18-79 09/01/1963 DEXA/DXA scan for age 65+ 2010 Medicare Wellness for age 65+ 2010 COVID-19 vaccine series ( season) 2022 11/30/2020, 05/07/2020, 04/16/2020 Influenza for age 65+ 10/27/2023 11/14/2018 , 01/25/2018, 12/09/2017, Additional history exists Tetanus booster 12/05/2028 12/05/2018, 10/27, 11/21/2012 Tdap Completed 11/21/2012 Pneumococcal series for age 65+ Completed 10/23/2017, 04/07/2015, 12/01/2013, Additional history exists Zoster (shingles) series for age 50+ Completed 11/13/2018, 08/07/2018, 10/23/2017, Additional history exists Medical Devices Implanted Type Area Earth Moving Machine Operator Device Identifier Shelf Expiration Date Model / Serial / Lot [id number] belt changer Implanted:Qty: 1 on 01/29/2011 at [facility] Explanted:at [facility] (Quantity not on file) Right: Breast [employer] - [employer] 09/26/2014 133MX-15-T / [id number] / Description:TISSUE BLOOD DONOR RECRUITER [id number] belt changer Implanted:Qty: 1 on 01/29/2011 at [facility] Explanted:at [facility] (Quantity not on file) Left: Breast [employer] - [employer] 10/13/2014 133MX-15-T / [id number] / Description:TISSUE BLOOD DONOR RECRUITER [id number] 5implnt Mammary 700cc [[id number]] Implanted:Qty: 1 on 08/28/2011 at [facility] Explanted:at [facility] (Quantity not on file) Right: Breast [employer] [id number] # / [id number] / [id number] Implnt Mammary 700cc - [id number] Implanted:Qty: 1 on 08/28/2011 at [facility] Explanted:at [facility] (Quantity not on file) Left: Breast [employer] [id number] # / [id number] / [id number] 7breast 600cc Memorygel Rnd High Smooth Silcn Implanted:Qty: 1 on 02/12/2018 by Arin Stiles MD at [facility] Explanted:at [facility] (Quantity not on file) Left: Breast [employer] 10/11/2021 [id number] # / [id number] Additional Health Concerns Infection Onset Date Last Indicated CLOSTRIDIUM DIFFICILE 04/03/2018 04/03/2018 Advance Directives Documents on File Type Date Recorded Patient Porter Luggage Expl anation Healthcare Directive 01/29/2011 09/20/10 * Full Code (Latest Code Status on File) Date Activated Date Inactivated Comments 04/02/2018 10:36 AM 04/11/2018 2:05 PM Question Answer Comments Code Status Discussion: Discussed * Full Code Date Activated Date Inactivated Comments 02/12/2018 8:43 AM 02/13/2018 2:34 AM * Full Code Date Activated Date Inactivated Comments 07/29/2017 11:18 AM 08/02/2017 1:28 AM * Full Code Date Activated Date Inactivated Comments 04/20/2015 2:07 AM 04/23/2015 6:38 PM * Full Code Date Activated Date Inactivated Comments 01/02/2012 11:39 AM 01/02/2012 1:55 PM Care Teams Mechanic Senior Relationship Specialty Start Date End Date Chele Mena MD [address] [place] [address] PCP - General 11/24/12 Mae Cheng AuD [address] [place] [address] Audiology 11/24/12
--- OUTSIDE RECORDS SUMMARY | 2023-07-08 10:04 | XMS_ITS | Encounter Summary ---
Author Name Unknown Organization [place] Address [address] [place], [place] [address] [address] Care Team Providers Care Cafe Assistant Name Role Phone Chele Mena MD Primary Care Provider Birgit Whipple MD Unavailable [phone] Dragan Ritter MD Unavailable [phone] Birgit Whipple MD Unavailable [phone] Encounter Details Date Type Department Care Team (Late st Contact Info) Description 05/24/2023 1:30 PM CDT [facility] [address] [place] [phone] Focal epilepsy (H); Neuropathy Social History Tobacco Use Types Packs/Day [...] Sex Assigned at Female 04/04/2021 11:57 AM CLINICAL TRIAL ASSISTANT Gender Identity Female 04/04/2021 11:57 AM CLINICAL TRIAL ASSISTANT Sexual Orientation Not on file documented as of this encounter Plan of Treatment Upcoming Encounters Date Type Department Care Team (Late st Contact Info) Description 05/21/2024 11:00 AM CDT Office Visit [facility] [address], [address] [place] [address] Birgit Whipple MD [address] [place] [address] documented as of this encounter Procedures Procedure Name Priority Date/Time Associated Diagnosis Comments VALPROIC ACID FREE AND TOTAL Routine 05/24/2023 1:35 PM CDT Focal epilepsy (H) PREGABALIN LEVEL Routine 05/24/2023 1:35 PM CDT Neuropathy documented in this encounter Results * Pregabalin Level: Random (05/24/2023 1:35 PM CDT) Pregabalin 4.2 ug/mL 05/26/2023 10:37 AM CDT [facility] Comment: INTERPRETIVE INFORMATION: Pregabalin, Serum/Plasma The therapeutic range is based on serum pre-dose (trough) draw at steady-state concentration. Therapeutic and toxic ranges are not well established. Proposed Dose-Related Range: 2-10 ug/mL. Adverse effects may include peripheral edema, allergic reactions, dizziness and somnolence. This test was developed and its performance characteristics determined by [facility]. It has not been cleared or approved by the [place] Food and Drug Administration. This test was performed in a CLIA certified laboratory and is intended for clinical purposes. Performed By: [facility] [address] [place] [address] Motorcycle Assembler: Zeeshan Richard MD, PhD CLIA Number: [id number] Blood BLOOD SPECIMEN / Unknown Venipuncture / Unknown 05/24/2023 1:35 PM CDT 05/24/2023 1:47 PM CDT Birgit Whipple MD LAB - BLOOD ORDE YOSELIN [facility] [address] [place] [address], [facility] [phone] * (ABNORMAL) Valproic Acid Free & Total [...] include headache, somnolence and dizziness. Performed By: [facility] [address] [place] [address] Motorcycle Assembler: Zeeshan Richard MD, PhD CLIA Number: [id number] Blood BLOOD SPECIMEN / Unknown Venipuncture / Unknown 05/24/2023 1:35 PM CDT 05/24/2023 1:47 PM CDT Birgit Whipple MD LAB - BLOOD CYRUS WYATT [facility] [address] [place] [address], [facility] [phone] documented in this encounter Visit Diagnoses Diagnosis Focal epilepsy (H) Localization-related (focal) (partial) epilepsy and epileptic syndromes with simple partial seizures, without mention of intractable epilepsy Neuropathy Mononeuritis of unspecified site documented in this encounter Additional Health Concerns Assessment Noted Time PHQ-9 Depression Total Score: 3 04/27/19 23 7:00 AM CLINICAL TRIAL ASSISTANT documented as of this encounter Care Teams Cafe Assistant Relationship Specialty Start Date End Date Reister, Elaine Hakan, MD [facility] [address] [place] [address] PCP - General Internal Medicine 11/28/12 Birgit Whipple MD [facility] [address] [place] [address] Neurology 06/16/14 Dragan Ritter MD [facility] [address] [place] [address] Urology 06/10/17 Birgit Whipple MD [address] [place] [address] Assigned Neuroscience Provider 04/03/20 documented as of this encounter
--- OUTSIDE RECORDS SUMMARY | 2023-07-08 10:04 | XMS_ITS | Encounter Summary ---
Author Name Unknown Organization [place] Address [address] [facility] [place] [address] Care Team Providers Care Academic Support Specialist Name Role Phone Chele Mena MD Primary Care Provider Birgit Whipple MD Unavailable [phone] Dragan Ritter MD Unavailable Birgit Whipple MD Unavailable Encounter Details Date Type Department Care Team (Latest Contact Info) Description 04/13/2022 External Order Results [facility] [address] [place] [address] Outside, Provider 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 (H) Social History Tobacco Use Types Packs/Day Years Used Date Smoking Tobacco: Never Smokeless Tobacco: Never Alcohol Use Standard Drinks/Week Comments No 0 (1 standard drink = 0.6 oz pur e alcohol) PHQ-2 Answer Date Recorded PHQ-2 Score 0 03/29/2020 Sex and Gender Information Value Date Recorded Sex Assigned at Female 04/04/2021 11:57 AM HR BUSINESS PARTNER Gender Identity Female 04/04/2021 11:57 AM HR BUSINESS PARTNER Sexual Orientation Not on file documented as of this encounter Plan of Treatment Upcoming Encounters Date Type Department Care Team (Late st Contact Info) Description 05/21/2024 11:00 AM CDT Office Visit [facility] [address], [address] [place] [address] Birgit Whipple MD [address] [place] [address] documented as of this encounter Procedures Procedure Name Priority Date/Time Associated Diagnosis Comments PREGABALIN LEVEL Routine 04/13/2022 3:26 PM HR BUSINESS PARTNER 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 (H) documented in this encounter Results * Pregabalin Level: Random (04/13/2022 3:26 PM HR BUSINESS PARTNER) PREGABALIN (EXTERNAL) 2.6 ug/mL NON-INTERFACED (ONBASE SCANS) Blood 04/13/2022 3:26 PM HR BUSINESS PARTNER Narrative [facility]UKO PFT - 04/19/2022 10:49 AM HR BUSINESS PARTNER Verified by Cheryl Soto on 04/19/2022. Birgit Whipple MD LAB - BLOOD CYRUS WY[place] BRELANIE PFT NON-INTERFACED (ONBASE SCANS) documented in this encounter Visit Diagnoses Diagnosis 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 (H) documented in this encounter Care Teams Academic Support Specialist Relationship Specialty Start Date End Date Chele Mena MD [facility] [address] [place] [address] PCP - General Internal Medicine 11/28/12 Birgit Whipple MD [facility] [address] [place] [address] Neurology 06/16/14 Dragan Ritter MD [facility] [address] [place] [address] Urology 06/10/17 Birgit Whipple MD [address] [place] [address] [id number] Assigned Neuroscience Provider 04/03/20 documented as of this encounter
--- OUTSIDE RECORDS SUMMARY | 2023-07-08 10:05 | XMS_ITS | Encounter Summary ---
Author Name Unknown Organization [place] Address [address] [facility] [place] [address] Care Team Providers Care Tumbler Machine Operator Helper Name Role Phone Chele Mena MD Primary Care Provider Birgit Whipple MD Unavailable Dragan Ritter MD Unavailable Birgit Whipple MD Unavailable Encounter Details Date Type Department Care Team (Late st Contact Info) Description 04/13/2022 External Order Results [facility] [address] [place] [address] Nader Colon MD [facility] [address] [id number] Focal epilepsy (H); Tremor Social History Tobacco Use Types Packs/Day Years Used Date Smoking Tobacco: Never Smokeless Tobacco: Never Alcohol Use Standard Drinks/Week Comments No 0 (1 standard drink = 0.6 oz pur e alcohol) PHQ-2 Answer Date Recorded PHQ-2 Score 0 03/29/2020 Sex and Gender Information Value Date Recorded Sex Assigned at Female 04/04/2021 11:57 AM DECISION SUPPORT MANAGER Gender Identity Female 04/04/2021 11:57 AM DECISION SUPPORT MANAGER Sexual Orientation Not on file documented as of this encounter Plan of Treatment Upcoming Encounters Date Type Department Care Team (Late st Contact Info) Description 05/21/2024 11:00 AM CDT Office Visit [facility] [address], [address] [place] [phone] Birgit Whipple MD [address] [place] [address] documented as of this encounter Procedures Procedure Name Priority Date/Time Associated Diagnosis Comments VALPROIC ACID FREE AND TOTAL Routine 04/13/2022 3:26 PM DECISION SUPPORT MANAGER Focal epilepsy (H) VALPROIC ACID Routine 04/13/2022 3:26 PM DECISION SUPPORT MANAGER Focal epilepsy (H) PRIMIDONE LEVEL Routine 04/13/2022 3:26 PM DECISION SUPPORT MANAGER Tremor PHENOBARBITAL LEVEL Routine 04/13/2022 3 :26 PM DECISION SUPPORT MANAGER documented in this encounter Results * Valproic acid (04/13/2022 3:26 PM DECISION SUPPORT MANAGER) VALPROIC ACID LEVEL (EXTERNAL) 50 50 - 100 mcg/mL NON-INTERFACED (ONBASE SCANS) Blood 04/13/2022 3:26 PM DECISION SUPPORT MANAGER Narrative [facility] PFT - 04/16/2022 1:02 PM DECISION SUPPORT MANAGER Verified by Christine Barber on 04/16/2022. Birgit Whipple MD LAB - BLOOD CYRUS WYATT BREEZE PFT NON-INTERFACED (ONBASE SCANS) * (ABNORMAL) Phenobarbital level (04/13/2022 3:26 PM DECISION SUPPORT MANAGER) PHENOBARBITAL LEVEL (EXTERNAL) 7.7(L) 15.0 - 40.0 ug/mL NON-INTERFACE D (ONBASE SCANS) Blood BLOOD SPECIMEN / Unknown 04/13/2022 3:26 PM DECISION SUPPORT MANAGER Narrative [facility]ZE PFT - 04/16/2022 11:59 AM DECISION SUPPORT MANAGER Verified by Christine Barber on 04/16/2022. Birgit Whipple MD LAB - BLOOD CYRUS WYATT Performing Organization Address City/[facility] Co de Phone Number BREEZE PFT NON-INTERFACED (ONBASE SCANS) * Primidone level (04/13/2022 3:26 PM DECISION SUPPORT MANAGER) PRIMIDONE LEVEL (EXTERNAL) 5.4 5.0 - 12.0 ug/mL NON-INTERFACED (ONBASE SCANS) Blood 04/13/2022 3:26 PM DECISION SUPPORT MANAGER Narrative BREEZE PFT - 04/16/2022 11:59 AM DECISION SUPPORT MANAGER Verified by Christine Barber on 04/16/2022. Birgit Whipple MD LAB - BLOOD CYRUS WYATT Performing Organization Address [facility] Co de Phone Number BREEZE PFT NON-INTERFACED (ONBASE SCANS) * Valproic acid free (04/13/2022 3:26 PM DECISION SUPPORT MANAGER) VALPROIC ACID FREE (EXTERNAL) 10 5 - 25 mcg/mL NON-INTERFACED (ONBASE SCANS) Blood 04/13/2022 3:26 PM DECISION SUPPORT MANAGER Narrative BREEZE PFT - 04/16/2022 11:51 AM DECISION SUPPORT MANAGER Verified by Christine Barber on 04/16/2022. Birgit Whipple MD LAB - BLOOD CYRUS WYATT Performing Organization Address [facility] Co de Phone Number BREEZE PFT NON-INTERFACED (ONBASE SCANS) documented in this encounter Visit Diagnoses Diagnosis Focal epilepsy (H) Localization-related (focal) (partial) epilepsy and epileptic syndromes with simple partial seizures, without mention of intractable epilepsy Tremor Abnormal involuntary movements documented in this encounter Care Teams Tumbler Machine Operator Helper Relationship Specialty Start Date End Date Chele Mena MD [facility] [address] [place], [place] [phone] PCP - General Internal Medicine 11/28/12 Birgit Whipple MD [facility] [address] [place] [address] Neurology 06/16/14 Dragan Ritter MD [facility] [address] [place] [address] Urology 06/10/17 Birgit Whipple MD [address] [place] [id number] Assigned Neuroscience Provider 04/03/20 documented as of this encounter
--- OUTSIDE RECORDS SUMMARY | 2023-07-08 10:05 | XMS_ITS | Clinical Summary ---
Author Name Unknown Organization [facility] Address [address] [place] [address] Care Team Providers Care Senior Java Programmer Analyst Name Role Phone Andrew Garvey MD Primary Care Provider [phone] Source Comments You are receiving this document as you are listed as the primary care provider,follow-up provider, or the patient has been referred to you for consultation.This is in compliance with the Medicare and[facility] EHR Incentive Program,which states Providers who transition their patient to another setting of careor provider of care or refers their patient to another provider of care shouldprovide summary care record for each transition of care or referral. [facility] Allergies Active Allergy Reactions Criticality Noted Date Comments Bee Venom Other, see comments 01/25/2021 Lacosamide Other, see comments 12/21/2020 Oxcarbazepine Hives,Rash High 12/27/2009 Medications Medication Sig Dispensed Refills Start Date End Date Status acetaminophen (ACETAMINOPHEN 8 HOUR) 650 MG controlled release tablet Active aspirin EC (ASPIR-LOW) 81 MG enteric coated tablet Active divalproex (DEPAKOTE ER) 250 MG 24 hour release tablet 11/05/2020 Active ACCU-CHEK GUIDE test strip 11/18/2020 Active HYDROcodone-acetaminop hen (NORCO) 5-325 MG tablet 01/23/2021 Active insulin glargine (BASAGLAR) 100 UNIT/ML KWIKPEN 01/06/2021 Active insulin glargine (LANTUS) 100 UNIT/ML injection Active ACCU-CHEK SOFTCLIX lancets 11/18/2020 Active lisinopril (ZESTRIL) 10 MG tablet 12/11/2020 Active metoprolol tartrate (LOPRESSOR) 50 MG tablet 12/20/2020 Active nystatin (MYCOSTATIN) 395664 UNIT/GM powder 01/05/2021 Act hortencia pregabalin (LYRICA) 50 MG capsule 01/02/2021 Active primidone (MYSOLINE) 250 MG tablet 12/19/2020 Active simvastatin (ZOCOR) 20 MG tablet 11/19/2020 Active tolterodine (DETROLLA) 4 MG 24 hour release capsule 11/22/2020 Active omega-3 fatty acids (FISH OIL) 1000 MG capsule Take 2 g by mouth daily. Active multivitamin (THERAGRAN) tablet Take 1 Tablet by mouth daily. Active CALCIUM CARBONATE-VITAMIN D OR Ac tive Immunizations Name Administration Dates Next Due Flu Vac Preserv Free (3+yrs) 11/21/2012 HepA Adult (19+ yrs) 01/25/2021 Influenza IIV3 (Trivalent) F luzomichael Highdose, 65+ Yrs (25211) 11/14/2018,12/09/2017,11/09/2013 Influenza IIV4 (Quadrivalent ) 0.5mL (15230) 11/09/2015 Influenza IIV4 (Quadrivalent ) Fluad, 65+ Yrs 11/22/2020 Influenza, Unspecified Formulation 01/25/2018 PCV13 (Prevnar) 04/07/2015 PPSV23 (Pneumovax) 10/23/2017, 4,09/08/2009,2009 Pfizer Monovalent 12+ Purple Top 11/30/2020,03/04/2020,04/16/2020 Td (7+ yrs) 12/05/2018 Tdap 11/21/2012 Typhoid (Typhim Vi, IM) 01/25/2021 Zoster (Zostavax) 12/09/2012 Zoster RZV (Shingrix) 08/07/2018,10/23/2017 Social History Tobacco Use Types Packs/Day Years Used Date Smoking Tobacco: Never Assessed Sex and Gender Information Value Date Recorded Sex Assigned at Female 01/02/2021 9:25 PM CATH LAB TECHNOLOGIST Gender Identity Female 01/02/2021 9:25 PM CATH LAB TECHNOLOGIST Sexual Orientation Not on file Plan of Treatment Health Maintenance Due Date Last Done Comments Hep C Screening (Preventive Services) 1945 Medicare Annual Wellness Visit 1945 Dexa 2010 HepA (2 of 2 - Risk 2-dose series) 07/26/2021 01/25/2021 COVID-19 Vaccine (4 - season) 2022 11/30/2020, 05/07/2020, 04/16/2020 Influenza (Season Ended) 2023 021, 11/14/2018, 01/25/2018, Additional history exists DTaP/Tdap/Td (3 - Tdap) 12/05/2028 12/05/2018, 11/21 Pneumococcal 65+ Yrs Completed 10/23/2017, 04/07/2015, 12/01/2013, Additional history exists Zoster/Shingles Completed 11/13/2018, 07/26, 10/23/2017, Additional history exists HepB Aged Out No longer eligi ble based on patient's age to complete this topic Hib Aged Out No longer eligi ble based on patient's age to complete this topic IPV (Polio) Aged Out No longer eligi ble based on patient's age to complete this topic MCV4 Aged Out No longer eligi ble based on patient's age to complete this topic Care Teams Senior Java Programmer Analyst Relationship Specialty Start Date End Date Andrew Garvey MD [address] [place] [address] PCP - General 10/05/99
--- OUTSIDE RECORDS SUMMARY | 2023-07-08 10:05 | XMS_ITS | Encounter Summary ---
Author Name Unknown Organization [place] Address [facility] [place] [address] Care Team Providers Care Robot Operator Name Role Phone Chele Mena MD Primary Care Provider Birgit Whipple MD Unavailable Dragan Ritter MD Unavailable Birgit Whipple MD Unavailable Encounter Details Date Type Department Care Team ([facility] Contact Info) Description 06/08/2021 MyC Medical [facility] [address], [address] [place] [phone] Birgit Whipple MD [address] [place] [address] Social History Tobacco Use Types Packs/Day Years Used Date Smoking Tobacco: Never Smokeless Tobacco: Never Alcohol Use Standard Drinks/Week Comments No 0 (1 standard drink = 0.6 oz pur e alcohol) PHQ-2 Answer Date Recorded PHQ-2 Score 0 03/29/2020 Sex and Gender Information Value Date Recorded Sex Assigned at Female 04/04/2021 11:57 AM MANUFACTURING TEACHER Gender Identity Female 04/04/2021 11:57 AM MANUFACTURING TEACHER Sexual Orientation Not on file documented as of this encounter Plan of Treatment Upcoming Encounters Date Type Department Care Team ([facility] Contact Info) Description 05/21/2024 11:00 AM CDT Office Visit M Lexie [facility] Epilepsy [facility] [address], [address] [place] [phone] Birgit Whipple MD [address] [place] [address] documented as of this encounter Visit Diagnoses Not on filedocumented in this encounter Care Teams Robot Operator Relationship Specialty Start Date End Date Chele Mena MD [facility] [address] [place] [address] PCP - General Internal Medicine 11/28/12 Birgit Whipple MD [facility] [address] [place] [address] Neurology 06/16/14 Dragan Ritter MD [facility] [address] [place] [address] Urology 06/10/17 Birgit Whipple MD [address] [place] [id number] Assigned Neuroscience Provider 04/03/20 documented as of this encounter
== END 2023-07-08 10:00 | disposition home or self-care (01) ==
PROVIDERS: PCP Internal Medicine; Visit Provider Internal Medicine
DX: I10 Essential (primary) hypertension (principal); E11.9 Type 2 diabetes mellitus without complications; Z79.4 Long term (current) use of insulin; Z13.220 Encounter for screening for lipoid disorders
CPT/HCPCS: 80053; 80061; 82043; 82570

== ENCOUNTER 2024-03-05 20:19 | Inpatient (IN) | payer MEDICARE, OTHER, SELFPAY ==
--- OUTSIDE RECORDS SUMMARY | 2024-03-05 20:22 | XMS_ITS | Clinical Summary ---
Author Organization [facility] Address [place], [place] [address] Care Team Providers Care Investigative Reporter Name Role Phone Chele Mena MD Primary Care Provider Mae Almeida AuD Unavailable [phone] Allergies Active Allergy Reactions Criticality Noted Date Comments Bee Pollen Edema Medium 12/19/2009 Ceftriaxone Rash Medium 04/11/2018 Lacosamide Confusion,Other - De scribe In Comment Field 01/03/2010 Oxcarbazepine Rash,Hives High 12/27/2009 Medications simvastatin (ZOCOR) 20 mg tablet Take 20 mg by mouth at bedtime. Active primidone (MYSOLINE) 250 mg tablet Take 250 mg by mouth at bedtime. 0 5 Active divalproex (DEPAKOTE ER) 250 mg Extended-Releas e tabletIndicatio ns:Partial epilepsy with intractable epilepsy (HC) Take 3 tablets by mouth 2 times daily. 60 tablet 0 6 Active Umbms-8-MRS-EPA -Fish Oil (FISH OIL) 1,000 mg (120 mg-180 [...] mg by mouth 2 times daily. 1 9 Active multivitamin-mi nerals therapeutic tablet Take 1 tablet by mouth once daily. Active diphenhydrAMINE (BENADRYL) 25 mg tabletIndicatio ns:Itching Take 1 tablet by mouth every 6 hours if needed for Itching or Other (Specify) (allergy symptoms). 0 9 Active lisinopril (PRINIVIL; ZESTRIL) 20 mg tabletIndicatio ns:Hypertension , unspecified type Take 0.5 tablets by mouth once daily. 0 9 Active LANTUS SOLOSTAR U-100 INSULIN 100 unit/mL (3 mL) penIndications: Type 2 diabetes mellitus without complication, with long-term current use of insulin (HC) Inject 8 Units subcutaneous before bedtime. Product desired:BASAGLAR 1 box 9 Active camphor-menthol , 0.5%-0.5%, (SARNA ANTI-ITCH) lotionIndicatio ns:Itching Apply topically to affected area(s) 3 times daily if needed. 1 Bottle 9 Active pregabalin (LYRICA) 50 mg capsuleIndicati ons:Neuropathy Take 1 capsule by mouth 2 times daily. At 1800 & 2200 10 capsule 9 Active pregabalin (LYRICA) 50 mg capsuleIndicati ons:Neuropathy Take 2 capsules by mouth once daily. morning 5 capsule 9 Active meloxicam (MOBIC) 7.5 mg tabletIndicatio ns:Lumbar facet arthropathy TAKE 1 TABLET BY MOUTH ONCE DAILY NEEDED FOR MORE SIGNIFICANT PAIN. 30 tablet 0 Active tolterodine (DETROL LA) 4 mg Extended-Releas e capsuleIndicati ons:Urinary urgency TAKE 1 CAPSULE BY MOUTH EVERY DAY 90 Capsule 2 Active Active Problems Problem Noted Date Diagnosed [...] INTRACTABLE 12/19/2009 Breast cancer, stage 3 12/19/2009 Overview (12/19/2009): S/P double mastectomy. First chemotherapy 12/13/09 HTN [...] 05/02/2012 Hyperammonemia 01/07/2010 05/02/2012 Hyponatremia 01/03/2010 05/02/2012 Overview (01/03/2010): Thought due to antiseizure meds Drug rash 01/03/2010 05/02/2012 Delirium 12/24/2009 05/02/2012 Immunizations Name Administration Dates Next Due AMB INFLUENZA, IIV4 (AGE=>6M OS) MDV (Flu Clinic Only) 11/09/2015,12/09/2014,11/09/2013,2012,11/21/2012 COVID-19 vaccine (Pfizer-Bio NTech 30mcg/0.3mL) PF, MDV 05/07/2020,04/16/2020 Influenza A (H1N1), [...] Name Comments Other Father at 51yo of [place]. Cancer-breast Maternal Aunt mothers twin dx age [...] Paying Living Expenses Not on file 02/25/2021 Comments No Sex and Gender Information Value Date Recorded Sex Assigned at Not on file Legal Sex Female 5:24 AM NEONATAL SPECIALIST Gender Identity Not on file Sexual Orientation Not on file Obstetrics History Last Filed Vital Signs Vital Sign Reading Time Taken Comments Blood Pressure 153/85 03/09/2021 9:54 AM NEONATAL SPECIALIST Pulse 78 03/09/2021 9:54 AM NEONATAL SPECIALIST Temperature 36.7 C (98 F) 03/09/2021 9:54 AM NEONATAL SPECIALIST Respiratory Rate 20 05/09/2020 9:51 AM CDT Oxygen Saturation 97% 03/09/2021 9:54 AM NEONATAL SPECIALIST Inhaled Oxygen Concentration - - Weight 125.5 kg (276 lb 9.6 oz) 03/09/2021 9:54 AM NEONATAL SPECIALIST Height 162.6 cm (5' 4) 04/02/2018 10:1 9 AM NEONATAL SPECIALIST Body Mass Index 47.48 04/02/2018 10:19 AM NEONATAL SPECIALIST Plan of Treatment Health Maintenance Due Date Last Done Comments Depression screening for age 12+ 1957 BMI (ht and wt on same day) for age 18+ 09/01/1963 Hepatitis C screening for ag e 18-79 09/01/1963 DEXA/DXA scan for age 65+ 2010 Medicare Wellness for age 65+ 2010 RSV vaccine for adults or (1 - 1-dose 75+ series) 2020 COVID-19 vaccine series ( season) 2023 11/30/2020, 05/07/2020, 04/16/2020 Influenza for age 65+ 10/27/2023 11/14/2018 , 01/25/2018, 12/09/2017, Additional history exists Tetanus booster 12/05/2028 12/05/2018, 10/27, 11/21/2012 Tdap Completed 11/21/2012 Pneumococcal series for age 50+ Completed 10/23/2017, 04/07/2015, 12/01/2013, Additional history exists Zoster (shingles) series for age 50+ Completed 11/13/2018, 08/07/2018, 10/23/2017, Additional history exists Medical Devices Implanted Type Area Safety Technician Device Identifier Shelf Expiration Date Model / Serial / Lot [id number] shelter supervisor Implanted:Qty: 1 on 01/29/2011 at [facility] Explanted:at [facility] (Quantity not on file) Right: Breast [employer] - [place] 09/26/2014 133MX-15-T / [id number] / Description:TISSUE CORPORATE GIVING MANAGER [id number] shelter supervisor Implanted:Qty: 1 on 01/29/2011 at [facility] Explanted:at [facility] (Quantity not on file) Left: Breast [employer] - [employer] 10/13/2014 133MX-15-[id number] / [id number] / Description:TISSUE CORPORATE GIVING MANAGER [id number] [id number] Mammary 700cc [[id number]][[id number]] Implanted:Qty: 1 on 08/28/2011 at [facility] Explanted:at [facility] (Quantity not on file) Right: Breast [employer] [place] [employer] (ABAM) [id number] # / [id number] / [id number] Implnt Mammary 700cc - [id number] Implanted:Qty: 1 on 08/28/2011 at [facility] Explanted:at [facility] (Quantity not on file) Left: Breast J [employer] J everbill [id number] # / [id number] / [id number] 7breast 600cc Memorygel Rnd High Smooth Silcn Implanted:Qty: 1 on 02/12/2018 by Arin Stiles MD at [facility] Explanted:at [facility] (Quantity not on file) Left: Breast [employer] [place] [employer] (ABAM) 10/11/2021 [id number] # / [id number] Additional Health Concerns Infection Onset Date Last Indicated CLOSTRIDIUM DIFFICILE 04/03/2018 04/03/2018 Insurance MEDICARE PART B HB ONLY MEDICARE PART A HB ONLY MEDICA SELECT SOLUTION MEDICARE PB ONLY MEDICARE PPS Advance Directives Documents on File Type Date Recorded Patient Human Factors Ergonomist Expl anation Healthcare Directive 01/29/2011 09/20/10 * [...] 11:39 AM 01/02/2012 1:55 PM Care Teams Investigative Reporter Relationship Specialty Start Date End Date Chele Mena MD [address] [place] [address] PCP - General 11/24/12 Mae Almeida AuD [address] [place] [address] Audiology 11/24/12
--- OUTSIDE RECORDS SUMMARY | 2024-03-05 20:22 | XMS_ITS | Clinical Summary ---
Author Organization [facility] Address [address] [place] [address] Care Team Providers Care Assistant Coach Name Role Phone Andrew Garvey MD Primary Care Provider [phone] Source Comments You are receiving this document as you are listed as the primary care provider,follow-up provider, or the patient has been referred to you for consultation.This is in compliance with the Medicare andMedicaid EHR Incentive Program,which states Providers who transition their patient to another setting of careor provider of care or refers their patient to another provider of care shouldprovide summary care record for each transition of care or referral. [facility] Allergies Active Allergy Reactions Criticality Noted Date [...] 50 MG tablet 12/20/2020 Active nystatin (MYCOSTATIN) 900243 UNIT/GM powder 01/05/2021 Act hortencia pregabalin (LYRICA) [...] (19+ yrs) 01/25/2021 Influenza IIV3 (Trivalent) F luzone Highdose, 65+ Yrs (24117) 11/14/2018,12/09/2017,11/09/2013 Influenza IIV4 (Quadrivalent ) 0.5mL (90193) 11/09/2015 Influenza IIV4 (Quadrivalent ) Fluad, 65+ [...] Sex Assigned at Female 01/02/2021 9:25 PM HEALTHCARE ARCHITECT Gender Identity Female 01/02/2021 9:25 PM HEALTHCARE ARCHITECT Sexual Orientation Not on file Plan of Treatment Health Maintenance Due Date Last Done Comments Hep C Screening (Preventive Services) 1945 Medicare Annual Wellness Visit 1945 Dexa 2010 RSV (1 - 1-dose 75+ series) 2020 HepA (2 of 2 - Risk 2-dose series) 07/26/2021 01/25/2021 COVID-19 Vaccine ( - season) 2023 11/30/2020, 05/07/2020, 04/16/2020 Influenza (#1) 2023 11/22/2020, 10/27, 01/25/2018, Additional history exists DTaP/Tdap/Td (3 - [...] age to complete this topic Care Teams Assistant Coach Relationship Specialty Start Date End Date Andrew Garvey MD [address] [place] [address] PCP - General 10/05/99
--- OUTSIDE RECORDS SUMMARY | 2024-03-05 20:22 | XMS_ITS | Encounter Summary ---
Author Organization [place] Address [address] [place] [address] Care Team Providers Care Credit Collections Manager Name Role Phone Chele Mena MD Primary Care Provider Birgit Whipple MD Unavailable Dragan Ritter MD Unavailable Birgit Whipple MD Unavailable [phone] Encounter Details Date Type Department Care Team (Late st Contact Info) Description 06/06/2023 MyC Medical Advice Physicians [facility] Epilepsy Care [address], [address] [place] [address] Birgit Whipple MD [address] [place], [place] [address] Social History Tobacco Use Types Packs/Day Years Used Date Smoking Tobacco: Never Smokeless Tobacco: Never Alcohol Use Standard Drinks/Week Comments No 0 (1 standard drink = 0.6 oz pur e alcohol) PHQ-2 Answer Date Recorded PHQ-2 Score 0 05/23/2023 Adolescent Education Answer Date Record ed Getting School Help Needed Not on file 11/16 Comments No Sex and Gender Information Value Date Recorded Sex Assigned at Female 04/04/2021 11:57 AM PRODUCT TRAINER Legal Sex Female 4:19 AM PRODUCT TRAINER Gender Identity Female 04/04/2021 11:57 AM PRODUCT TRAINER Sexual Orientation Not on file documented as of this encounter Plan of Treatment Upcoming Encounters Date Type Department Care Team (Late st Contact Info) Description 05/21/2024 11:00 AM CDT Office Visit M [facility] [address], [address] [place] [address] Birgit Whipple MD [address] [place] [address] documented as of this encounter Visit Diagnoses Not on filedocumented in this encounter Additional Health Concerns Assessment Noted Time PHQ-9 Depression Total Score: 3 04/27/19 23 7:00 AM PRODUCT TRAINER documented as of this encounter Care Teams Credit Collections Manager Relationship Specialty Start Date End Date Chele Mena MD [facility] [address] [place] [address] PCP - General Internal Medicine 11/28/12 Birgit Whipple MD [facility] [address] [place] [address] Neurology 06/16/14 Dragan Ritter MD [facility] [address] [place] [address] Urology 06/10/17 Birgit Whipple MD [address] [place] [address] Assigned Neuroscience Provider 04/03/20 documented as of this encounter
--- OUTSIDE RECORDS SUMMARY | 2024-03-05 20:22 | XMS_ITS | Encounter Summary ---
Author Organization [place] Address [address] [place] [address] Care Team Providers Care Proposal Manager Name Role Phone Chele Mena MD Primary Care Provider Birgit Whipple MD Unavailable Dragan Ritter MD Unavailable [phone] Birgit Whipple MD Unavailable Encounter Details Date Type Department Care Team (Late st Contact Info) Description 04/13/2022 External Order Results [facility] [address] [place] [address] Nader Colon MD [facility] [address] [id number] Focal epilepsy (H); Tremor Social History Tobacco Use Types Packs/Day Years Used Date Smoking Tobacco: Never Smokeless Tobacco: Never Alcohol Use Standard Drinks/Week Comments No 0 (1 standard drink = 0.6 oz pur e alcohol) PHQ-2 Answer Date Recorded PHQ-2 Score 0 03/29/2020 Comments No Sex and Gender Information Value Date Recorded Sex Assigned at Female 04/04/2021 11:57 AM SCIENTIFIC INFORMATICS ANALYST Legal Sex Female 4:19 AM SCIENTIFIC INFORMATICS ANALYST Gender Identity Female 04/04/2021 11:57 AM SCIENTIFIC INFORMATICS ANALYST Sexual Orientation Not on file documented as of this encounter Plan of Treatment Upcoming Encounters Date Type Department Care Team (Late st Contact Info) Description 05/21/2024 11:00 AM CDT Office Visit [facility] [address], [address] [place] [phone] Birgit Whipple MD [address] [place] [address] documented as of this encounter Procedures Procedure Name Priority Date/Time Associated Diagnosis Comments VALPROIC ACID FREE AND TOTAL Routine 04/13/2022 3:26 PM SCIENTIFIC INFORMATICS ANALYST Focal epilepsy (H) VALPROIC ACID Routine 04/13/2022 3:26 PM SCIENTIFIC INFORMATICS ANALYST Focal epilepsy (H) PRIMIDONE LEVEL Routine 04/13/2022 3:26 PM SCIENTIFIC INFORMATICS ANALYST Tremor PHENOBARBITAL LEVEL Routine 04/13/2022 3 :26 PM SCIENTIFIC INFORMATICS ANALYST documented in this encounter Results * Valproic acid (04/13/2022 3:26 PM SCIENTIFIC INFORMATICS ANALYST) VALPROIC ACID LEVEL (EXTERNAL) 50 50 - 100 mcg/mL NON-INTERFACED (ONBASE SCANS) Blood 04/13/2022 3:26 PM SCIENTIFIC INFORMATICS ANALYST Narrative YUKO PFT - 04/16/2022 1:02 PM SCIENTIFIC INFORMATICS ANALYST Verified by Christine Barber on 04/16/2022. us Birgit Whipple MD LAB - BLOOD ORDERABLES E dited Result - Final FRANCISDenny PFT NON-INTERFACED (ONBASE SCANS) * (ABNORMAL) Phenobarbital level (04/13/2022 3:26 PM SCIENTIFIC INFORMATICS ANALYST) PHENOBARBITAL LEVEL (EXTERNAL) 7.7(L) 15.0 - 40.0 ug/mL NON-INTERFACE D (ONBASE SCANS) Blood BLOOD SPECIMEN / Unknown 04/13/2022 3:26 PM SCIENTIFIC INFORMATICS ANALYST Narrative BREEZE PFT - 04/16/2022 11:59 AM SCIENTIFIC INFORMATICS ANALYST Verified by Christine Barber on 04/16/2022. us Birgit Whipple MD LAB - BLOOD ORDERABLES E dited Result - Final BREEZE PFT NON-INTERFACED (ONBASE SCANS) * Primidone level (04/13/2022 3:26 PM SCIENTIFIC INFORMATICS ANALYST) PRIMIDONE LEVEL (EXTERNAL) 5.4 5.0 - 12.0 ug/mL NON-INTERFACED (ONBASE SCANS) Blood 04/13/2022 3:26 PM SCIENTIFIC INFORMATICS ANALYST Narrative BREEZE PFT - 04/16/2022 11:59 AM SCIENTIFIC INFORMATICS ANALYST Verified by Christine Barber on 04/16/2022. us Birgit Whipple MD LAB - BLOOD ORDERABLES E dited Result - Final BREEZE PFT NON-INTERFACED (ONBASE SCANS) * Valproic acid free (04/13/2022 3:26 PM SCIENTIFIC INFORMATICS ANALYST) VALPROIC ACID FREE (EXTERNAL) 10 5 - 25 mcg/mL NON-INTERFACED (ONBASE SCANS) Blood 04/13/2022 3:26 PM SCIENTIFIC INFORMATICS ANALYST Narrative BREEZE PFT - 04/16/2022 11:51 AM SCIENTIFIC INFORMATICS ANALYST Verified by Christine Barber on 04/16/2022. 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, without mention of intractable epilepsy Tremor Abnormal involuntary movements documented in this encounter Care Teams Proposal Manager Relationship Specialty Start Date End Date Chele Mena MD [facility] [address] [place] [address] PCP - General Internal Medicine 11/28/12 Birgit Whipple MD [facility] [address] [place] [address] Neurology 06/16/14 Dragan Ritter MD [facility] [address] [place] [address] Urology 06/10/17 Birgit Whipple MD [address] [place] [address] Assigned Neuroscience Provider 04/03/20 documented as of this encounter
--- OUTSIDE RECORDS SUMMARY | 2024-03-05 20:22 | XMS_ITS | Encounter Summary ---
Author Organization [facility] Address [address] [place] [address] Care Team Providers Care Baggage Agent Name Role Phone Chele Mena MD Primary Care Provider Birgit Whipple MD Unavailable Dragan Ritter MD Unavailable Birgit Whipple MD Unavailable Encounter Details Date Type Department Care Team (Late st Contact Info) Description 06/08/2021 MyC Medical Advice Physicians [facility] [address], [address] [place] [address] Birgit Whipple MD [address] [place], [place] [id number] Social History Tobacco Use Types Packs/Day Years Used Date Smoking Tobacco: Never Smokeless Tobacco: Never Alcohol Use Standard Drinks/Week Comments No 0 (1 standard drink = 0.6 oz pur e alcohol) PHQ-2 Answer Date Recorded PHQ-2 Score 0 03/29/2020 Comments No Sex and Gender Information Value Date Recorded Sex Assigned at Female 04/04/2021 11:57 AM PRECISION MACHINING INSTRUCTOR Legal Sex Female 4:19 AM PRECISION MACHINING INSTRUCTOR Gender Identity Female 04/04/2021 11:57 AM PRECISION MACHINING INSTRUCTOR Sexual Orientation Not on file documented as of this encounter Plan of Treatment Upcoming Encounters Date Type Department Care Team (Late st Contact Info) Description 05/21/2024 11:00 AM CDT Office Visit [facility] [address], [address] [place] [address] Birgit Whipple MD [address] [place] [address] documented as of this encounter Visit Diagnoses Not on filedocumented in this encounter Care Teams Baggage Agent Relationship Specialty Start Date End Date Chele Mena MD [facility] [address] [place] [address] PCP - General Internal Medicine 11/28/[address] [facility] [address] [place] [address] Neurology 06/16/[address] [facility] [address] [place] [address] Urology 06/10/17 Birgit Whipple MD [address] [place] [address] Assigned Neuroscience Provider 04/03/20 documented as of this encounter
--- OUTSIDE RECORDS SUMMARY | 2024-03-05 20:22 | XMS_ITS | Data Portability ---
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 Plan of Treatment Reminders Order Date Submit Date Provider Last Modified By Organization Details Last Modified Time Details Appointments None recorded . Lab urinalys is, dipstick 2021 022 [email or web address] Not available 15:50:03 urinalys is, dipstick 2023 024 [facility], [address], [place], [address], 4 11:23:36 Referral None recorded . Procedures None recorded . Surgeries None recorded . Imaging None recorded . Medication Orders tolterod ine ER 4 mg capsule, extended release 24 hr 2021 022 [facility] [id number] [address] [employer], [address] [place], [address], 2 16:14:15 Detrol LA 4 mg capsule, extended release 2022 023 [facility] [id number] [address], [address] [place], [address], 3 15:49:38 Patient TargetsNo targets recorded. Patient InstructionsNo instructions recorded. Reason for Referral None Reported. Results Created Date Observation Date Name Description Value Unit Range Abnormal Flag Note LastModifiedBy Organization Detail LastModifiedTime 08/15/19 22 08/14/2021 urina lysis , dipst ick pH-Status 6.5 Not Available [facility] [address], [place], [address], 08/14/2021 15:44:46 08/15/19 22 08/14/2021 urina lysis , dipst ick Nitrates-Sta tus negati ve Not Available [facility] [address], [place], [address], 08/14/2021 15:44:46 08/15/19 22 08/14/2021 urina lysis , dipst ick Blood-Status Negati ve Not Available [facility] [address], [place], [address], 08/14/2021 15:44:46 08/15/19 22 08/14/2021 urina lysis , dipst ick Leuko-Status Negati ve Not Available [facility] [address], [place], [address], 08/14/2021 15:44:46 08/15/19 22 08/14/2021 urina lysis , dipst ick Specimen Type Voided Not Available [facility] [address], [place], [address], 08/14/2021 15:44:46 12/27/19 24 12/27/2023 urina lysis , dipst ick BLOOD Negati ve Not Available [facility] [address], [place], [address], 12/27/2023 11:11:36 12/27/19 24 12/27/2023 urina lysis , dipst ick BILIRUBIN Negati ve Not Available [facility] [address], [place], [address], 12/27/2023 11:11:36 12/27/19 24 12/27/2023 urina lysis , dipst ick UROBILINOGEN 1.0 mg/dL Not Available [facility] [address], [place], [address], 12/27/2023 11:11:36 12/27/19 24 12/27/2023 urina lysis , dipst ick KETONES Trace (5 mg/dL) Not Available [facility] [address], [place], [address], 12/27/2023 11:11:36 12/27/19 24 12/27/2023 urina lysis , dipst ick PROTEIN Negati ve Not Available [facility] [address], [place], [address], 12/27/2023 11:11:36 12/27/19 24 12/27/2023 urina lysis , dipst ick NITRITES Negati ve Not Available [facility] [address], [place], [address], 12/27/2023 11:11:36 12/27/19 24 12/27/2023 urina lysis , dipst ick GLUCOSE Negati ve Not Available [facility] [address], [place], [address], 12/27/2023 11:11:36 12/27/19 24 12/27/2023 urina lysis , dipst ick p.H. 5.0 Not Available [facility] [address], [place], [address], 12/27/2023 11:11:36 12/27/19 24 12/27/2023 urina lysis , dipst ick S.G. (Specific [place]) 1.025 Not Available [facility] [address], [place], [address], 12/27/2023 11:11:36 12/27/19 24 12/27/2023 urina lysis , dipst ick LEUKOCYTES Negati ve Not Available [facility] [address], [place], [address], 12/27/2023 11:11:36 08/15/19 22 08/14/2021 bladd er scan (PROC ) No observ ation record ed. Not Available 03/2022 16:05:13 Result Notes None recorded. Procedures Surgical History Date Name Laterality Status Provider Name and Address Organization Details Recorded Time 024 Urinalysis completed Godfrey Levi [facility] 12/27/2023 11:11:30 023 Bladder Scan completed Sarah Tony [facility] 09/26/2022 15:40:31 022 Bladder Scan completed Carmen [facility] 08/14/2021 16:00:13 Appendectomy completed Carmen [facility] 08/14/2021 15:46:37 Carpal tunnel surgery completed Carmen Lars [facility] 08/14/2021 15:47:00 Cholecystectomy completed Carmen Lars [facility] 08/14/2021 15:47:32 Colonoscopy completed Carmen Lars [facility] 08/14/2021 15:47:37 Total Hysterectomy completed Christineecc yohannes Sousa [facility] 08/14/2021 15:48:05 total knee replacement completed Carmen Lars [facility] 08/14/2021 15:58:33 excision of bilateral breasts completed Carmen Lars [facility] 08/14/2021 15:58:18 procedure on wrist completed Rebecc a Lars [facility] 08/14/2021 15:58:54 Imaging Results Imaging Date Name Status LastModified by Organiz ation Details LastModified Time 08/14/2021 bladder scan (PROC) completed [email or web address] Information not available 09/26/2022 16:05:13 Procedure Notes None recorded. Medical Equipment None Reported. Allergies Allergen ID Allergen Name Allergen Category Reaction Reaction Severity Criticality Documentation Date Start Date Code Code System Note Provider Name and Address Organization Details Recorded Time [id number] 2824e bee pollen environme nt,medica tion Not available Not available Not available 08/14/2021 77017 7 RxNorm Not Available Not Available Not Available [id number] 2824e ceftriaxo ne medicatio n Not available Not available Not available 08/14/2021 2193 RxNorm Not Available Not Available Not Available [id number] 2824e Trileptal medicatio n Not available Not available Not available 08/14/2021 18187 0 RxNorm Not Available Not Available Not Available [id number] 2824e Vimpat medicatio n Not available Not available Not available 08/14/2021 86003 9 RxNorm Not Available Not Available Not Available Medications Name Sig Start Date Stop Date Status Note LastModified by Organization Details LastModified Time amoxicillin 500 mg capsule TAKE 1 CAPSULE BY MOUTH 4 TIMES A DAY UNTIL GONE 08/14 completed Not Available Not Available Not Available primidone 50 mg tablet TAKE 2 TABS IN THE MORNING AND 4 TABS IN THE EVENING active Not Available Not Available No t Available tolterodine ER 4 mg capsule,ext ended release 24 hr TAKE 1 CAPSULE BY MOUTH EVERY DAY active Not Available Not Available No t Available hydrocodone 5 mg-acetamin ophen 325 mg tablet TAKE 1 TO 2 TABLETS BY MOUTH EVERY 4 TO 6HRS NEEDED FOR PAIN. 12/26 completed Not Available Not Available Not Available prednisone 20 mg tablet TAKE 1 TABLET BY MOUTH TWICE DAILY FOR PAIN active Not Available Not Available No t Available Accu-Chek Softclix Lancets PATIENT TO USE ONE TIME DAILY active Not Available Not Available No t Available primidone 250 mg tablet TAKE 1 TABLET (250 MG) BY MOUTH EVERY MORNING active Not Available Not Available No t Available simvastatin 20 mg tablet TAKE ONE TABLET BY MOUTH EVERY EVENING active Not Available Not Available No t Available lisinopril 10 mg tablet TAKE 1 TABLET BY MOUTH ONCE DAILY active Not Available Not Available No t Available metoprolol tartrate 50 mg tablet TAKE 1 TABLET BY MOUTH TWICE A DAY active Not Available Not Available No t Available divalproex ER 250 mg tablet,exte nded release 24 hr TAKE 3 TABLETS (750 MG) BY MOUTH 2 TIMES DAILY - ORAL active Not Available Not Available No t Available BD Ultra-Fine Mini Pen Needle 31 gauge x 3/16 USE TO INJECT ONCE DAILY active Not Available Not Available No t Available pregabalin 50 mg capsule TAKE 1 CAPSULE (50 MG) BY MOUTH DAILY (WITH LUNCH) AND 1 CAPSULE (50 MG) EVERY EVENING. active Not Available Not Available No t Available pregabalin 100 mg capsule TAKE 1 CAPSULE (100 MG) BY MOUTH EVERY MORNING active Not Available Not Available No t Available Lantus Solostar U-100 Insulin 100 unit/mL (3 mL) subcutaneou s pen INECT 12 UNITS SUBCUTANE OUSLY EVERY EVENING FOR DIABETES active Not Available Not Available No t Available GaviLyte-G 236 gram-22.74 gram-6.74 gram-5.86 gram oral solution PLEASE SEE ATTACHED FOR DETAILED DIRECTION S 12/26 completed Not Available Not Available Not Available Myrbetriq 25 mg tablet,exte nded release active Not Available Not Available Not Available Levemir FlexTouch U-100 Insulin 100 unit/mL (3 mL) subcutaneou s pen 12 UNIT (0.12 ML) SUBCUTANE OUSLY EVERY DAY AT BEDTIME FOR DIABETES MELLITUS PEN PLEASE active Not Available Not Available No t Available Accu-Chek Guide test strips FOR DIABETES PATIENT TO TEST ONCE DAILY active Not Available Not Available No t Available Accu-Chek Guide Me Glucose Meter USE DIRECTED active Not Available Not Available No t Available BD Zina 2nd Gen Pen Needle 32 gauge x /32 USE THREE TIME DAILY active Not Available Not Available No t Available Gemtesa 75 mg tablet TAKE 1 TABLET BY MOUTH EVERY DAY 2024 active Not Available Not Available Not Cristian Goodman COVID-19 Ag Self Test kit FOLLOW INSTRUCTI ONS IN PACKAGING 08/14 completed Not Available Not Available Not Available Klayesta 100,000 unit/gram topical powder APPLY 1 APPLICATI ON TOPICALLY TWICE A DAY FOR RASH active Not Available Not Available No t Available Vitals Date Recorded Body height Body mass index (BMI) Body weight Provider Name and Address Organization Details Last Updated DateTime 09/26/2022 165.1 cm 45.6 kg/m2 893936.31 g Sarah Tony [facility] 09/26/2022 15:39:34 Date Recorded Body height Body mass index (BMI) Body weight Provider Name and Address Organization Details Last Updated DateTime 12/27/2023 165.1 cm 45.8 kg/m2 246670.9 g Godfrey Levi [facility] 12/27/2023 11:28:25 Date Recorded Body height Body mass index (BMI) Body weight Provider Name and Address Organization Details Last Updated DateTime 08/14/2021 165.1 cm 45.6 kg/m2 382702.31 g Carmen Sousa [facility] 08/14/2021 15:56:08 Social History Question Answer Notes LastModified by Organizat ion Details LastModified Time Tobacco Smoking Status Never Smoker Carmen Sousa [facility] 08/14/2021 15:46:31 What Is Your Level Of Alcohol Consumption? None [email or web address] Information not available 08/14/2021 What Was The Date Of Your Most Recent Tobacco Screening? 12/27/2023 Information not available 12/27/2023 Do You Use Any Illicit Or Recreational Drugs? No Information not available 09/26/2022 Has Tobacco Cessation Counseling Been Provided? No Information not available 09/26/2022 Do You Or Have You Ever Used Any Other Forms Of Tobacco Or Nicotine? No Information not available 09/26/2022 Sex: Female Functional Status None recorded. Mental Status None recorded. Family History Relationship Description Onset Age of this Age Resolved Age Notes LastModified by Organization Details LastModified Time Father No current problems or disability [email or web address] Not available 12/26 11:29:05 Mother No current problems or disability [email or web address] Not available 12/26 11:29:05 Medical History Condition Response Other Y High Blood Pressure Y Kidney Stones N Lung Disease N GERD/Acid Reflux Y Sexually Transmitted Infection N Diabetes Y Cancer Y High Cholesterol Y Gynecological HistoryNo gynecological history recorded. Obstetrics History GPAL:G 0 P 0 0 0 0 Immunizations Vaccine Type Date Status Note Provider Nam e and Address Organization Details Recorded Time zoster recombinant 9 completed Godfrey fermin [facility] 12/27/2023 11:11:10 zoster recombinant 8 completed Godfrey Levi null, [facility] 12/27/2023 11:11:10 zoster recombinant 9 completed Godfrey Levi null, [facility] 12/27/2023 11:11:10 Influenza, high-dose, quadrivalent, PF 2 completed Godfrey Levi null, [facility] 12/27/2023 11:11:10 Influenza, adjuvanted, quadrivalent, PF 1 completed Godfrey Levi null, [facility] 12/27/2023 11:11:10 COVID-19, mRNA, LNP-S, bivalent, PF, 50 mcg/0.5 mL or 25mcg/0.25 mL dose 3 completed Godfrey Levi null, [facility] 12/27/2023 11:11:10 COVID-19, mRNA, LNP-S, bivalent, PF, 50 mcg/0.5 mL or 25mcg/0.25 mL dose 2 completed Godfrey Levi null, [facility] 12/27/2023 11:11:10 influenza, unspecified formulation 8 completed Godfrey Levi null, [facility] 12/27/2023 11:11:10 Tdap 3 completed Godfrey Levi null, [facility] 12/27/2023 11:11:10 Influenza, high-dose, trivalent, PF 4 completed Godfrey Levi null, [facility] 12/27/2023 11:11:10 Influenza, high-dose, trivalent, PF 9 completed Godfrey Levi null, [facility] 12/27/2023 11:11:10 Influenza, high-dose, trivalent, PF 8 completed Godfrey Levi null, [facility] 12/27/2023 11:11:10 Influenza, split virus, trivalent, PF 3 completed Godfrey Levi null, [facility] 12/27/2023 11:11:10 Td (adult), 2 Lf tetanus toxoid, preservative free, adsorbed 9 completed Godfrey Levi null, [facility] 12/27/2023 11:11:10 Hep A, adult 1 completed Godfrey Levi null, [facility] 12/27/2023 11:11:10 typhoid, ViCPs 1 completed Godfrey Levi null, [facility] 12/27/2023 11:11:10 Influenza, split virus, quadrivalent, PF 6 completed Godfrey Levi null, [facility] 12/27/2023 11:11:10 pneumococcal polysaccharide PPV23 4 completed Carmen Stromquist null, [facility] 08/14/2021 15:34:47 COVID-19, mRNA, LNP-S, PF, 30 mcg/0.3 mL dose, sridhar-sucrose 2 completed Carmen Stromquist null, [facility] 08/14/2021 15:34:47 COVID-19, mRNA, LNP-S, PF, 30 mcg/0.3 mL dose 1 completed Carmen Stromquist null, [facility] 08/14/2021 15:34:47 COVID-19, mRNA, LNP-S, PF, 30 mcg/0.3 mL dose 1 completed Carmen Stromquist null, [facility] 08/14/2021 15:34:47 COVID-19, mRNA, LNP-S, PF, 30 mcg/0.3 mL dose 1 completed Carmen Stromquist null, [facility] 08/14/2021 15:34:47 Pneumococcal conjugate PCV 13 6 completed Carmen Stromquist null, [facility] 08/14/2021 15:34:47 pneumococcal polysaccharide PPV23 8 completed Carmen Stromquist null, [facility] 08/14/2021 15:34:47 Past Encounters Encounter ID Performer Location Encounter Start Date Encounter Closed Date Diagnosis/Indication Diagnosis SNOMED-CT Code Diagnosis ICD10 Code Diagnosis Note [id number] TRISHA PERES, PA-C [facility] [address] [place] [address] 08/14/2021 15:22:16 08/16/2021 08:52:31 Urgent desire to urinate 02401739 R39.15 Limit intake of caffeine and carbonate beverages. Overactive urinary bladder 459476224 N32.81 - Ctn to take detrol 4 mg per day, tolerating well.- Follow up in a year . [id number] HALEY GONZALEZ [facility] [address] [place] [address] 09/26/2022 15:20:25 10/02/2022 19:08:29 Urgent desire to urinate 00666031 R39.15 Reviewed first and second line OAB management Limit bladder irritantsR ecommend timed voiding every 2hrsFailed oxybutynin and myrbetriqG ood response historical ly with tolterodin e 4mg, cont this for nowOption to trial gemtesa, samples givenCont kegel exercises as well Overactive urinary bladder 803145855 N32.81 Urge incon tinence of urine 36967818 N39.41 [id number] HALEY GONZALEZ [facility] [address] [place] [address] 12/27/2023 10:51:36 12/30/2023 14:26:57 Urgent desire to urinate 18861068 R39.15 Reviewed first and second line OAB management Limit bladder irritantsR ecommend timed voiding every 2hrsFailed oxybutynin and myrbetriqG ood response historical ly with tolterodin e 4mg, but now worsening sxWould trial gemtesa next, samples given; ok to send script if she callsCont kegel exercises as well f/u 2-3mo for recheck Overactive urinary bladder 113969782 N32.81 Urge incon tinence of urine 81104717 N39.41 Nocturia 247201702 R35.1 Health Concerns Section Related Observation LastModified by Organization Detai ls LastModified Time None Recorded Concern Status LastModified by Organization Details LastModified Time None Recorded Advance Directives Directive None Recorded Payers Encounter Date Sequence Insurance Name Policy Number Policy Minaya Covered Member ID Minaya Member ID Guarantor Name 08/14/2021 1 [place]: [facility] Kisha Jackson Prueser [id number] Kisha Jackson Prueser 08/14/2021 2 MEDICA (MEDICARE SUPPLEMENT) [id number] Kisha Jackson Prueser [id number] Kisha Jackson Prueser 09/26/2022 1 [place]: [facility] Kisha Jackson Prueser [id number] Kisha Jackson Prueser 09/26/2022 2 MEDICA (MEDICARE SUPPLEMENT) [id number] Kisha Jackson Prueser [id number] Kisha Jackson Prueser 12/27/2023 1 MEDICARE B-[place]: [facility] Kisha Jackson Prueser [id number] Kisha Jackson Prueser 12/27/2023 2 MEDICA (MEDICARE SUPPLEMENT) [id number] iKsha Jackson Prueser [id number] Kisha Jackson Prueser Notes Date Note Type Note Provider Name and Address Organization Details Recorded Time 08/14/2021 text/html Kisha is a pleasant 75 year old female/male who presents to the clinic today for follow up regarding urinary urgency. She has previously been seen by Dr. Walotn and Dr. Ritter.She has a history of bilateral renal cysts. On CT from 12/2016 there was noted to be a 5 cm high density area on the left kidney and she subsequently underwent left partial nephrectomy on 07/29/[address] Ritter. Tissue was benign. She has a history of urinary urgency and occasional urinary leakage. She has previously been on oxybutynin ED 10 mg daily with no improvement. She also has been on myrbetriq 50 mg without improvement in her symptoms. She was then started on tolterodine LA, 4 mg daily. 08/31/19: She presents for follow up on urinary urgency. She voids every 2-3 hours during the day and 1-2x at night. She denies hesitancy and dysuria. She still has some trouble with incontinence (if she wait too long). She uses 2-3 pads per day. She notes mild dry mouth. 08/14/21: She presents today for follow up on her urinary symptoms. She has continued to take detrol LA 4 mg per day. She has been tolerating the med well. She does have some dry mouth. She feels that overall her urinary symptoms are well controlled. Voids about every 2-3 hours during the day. Nocturia about one time per night. She does have urinary urge incontinence when she waits to long.She does have sleep apnea, uses a mouthpiece. UA today: normalPVR today: 0 cc TRISHA PERES PA-C [address] [place] [address],[facility] [address], [address], [facility] 08/14/2021 16:19:30 09/26/2022 text/html Kisha is a pleasant 75 year old female/male who presents to the clinic today for follow up regarding urinary urgency. She has previously been seen by Dr. Walton and Dr. Ritter.She has a history of bilateral renal cysts. On CT from 12/2016 there was noted to be a 5 cm high density area on the left kidney and she subsequently underwent left partial nephrectomy on 07/29/[address] Ritter. Tissue was benign. She has a history of urinary urgency and occasional urinary leakage. She has previously been on oxybutynin ED 10 mg daily with no improvement. She also has been on myrbetriq 50 mg without improvement in her symptoms. She was then started on tolterodine LA, 4 mg daily. 08/31/19: She presents for follow up on urinary urgency. She voids every 2-3 hours during the day and 1-2x at night. She denies hesitancy and dysuria. She still has some trouble with incontinence (if she wait too long). She uses 2-3 pads per day. She notes mild dry mouth. 08/14/21 (Trisha): She presents today for follow up on her urinary symptoms. She has continued to take detrol LA 4 mg per day. She has been tolerating the med well. She does have some dry mouth. She feels that overall her urinary symptoms are well controlled. Voids about every 2-3 hours during the day. Nocturia about one time per night. She does have urinary urge incontinence when she waits to long.She does have sleep apnea, uses a mouthpiece. UA today: normalPVR today: 0 cc 09/26/22: Here today for f/u on OAB sx- primarily urinary urgency, occasional urge incontinence, nocturia x1. Has had good response with detrol LA 4mg, notes only mild dry mouth- started this 3+ years ago. She still has some urgency and urge leakage, no frequency. Voiding every 3hrs. Nocturia x1. Unable to void for UA todayBUS 1cc HALEY GONZALEZ [address], [place], [address], [facility] 09/26/2022 16:07:36 12/27/2023 text/html [id number] followed for OAB sx- primarily urinary urgency and occasional urge leakage, nocturia. Has tried oxybutynin 10mg ER without improvement. Myrbetriq 50mg without improvement. Some sx improvement with tolterodine 4mg daily- some mild dry mouth with this. Also continues kegels daily. Worsening urgency and urge incontinence over the last 4-5mo. At last visit, discussed trial of gemtesa but has not tried this yet. Hx of bilateral renal cysts- has seen Dr. Walton and Riya for this in the past, CT from 2017 showed a 5cm high density area on the left kidney and she underwent left partial nephrectomy on 07/29/17- path was benign. Mhx: TOM, baseline dry mouth UA neg Here today with her , Pratik HALEY GONZALEZ [address], [place], [address], [facility] 12/27/2023 11:51:28 OBGyn Episode No OBEpisode recorded.
--- OUTSIDE RECORDS SUMMARY | 2024-03-05 20:22 | XMS_ITS | Referral Summary ---
Author Organization [place] Address [address] [place] [address] Care Team Providers Care Field Geologist Name Role Phone Chele Mena MD Primary Care Provider Birgit Whipple MD Unavailable Dragan Ritter MD Unavailable Birgit Whipple MD Unavailable Allergies Active Allergy Reactions Criticality Noted Date Comments Bee Venom 06/19/2013 Lacosamide 11/28/2012 Delirium. Lacosamide Other (See Comments) 02/21/2016 Oxcarbazepine Rash Low 11/28/2012 Oxcarbazepine Rash Low 02/21/2016 Seasonal Allergies 06/19/2013 Medications simvastatin (ZOCOR) 20 MG tablet Take by mouth daily Active metoprolol (LOPRESSOR) 50 MG tablet Take 50 mg by mouth 2 times daily Active lisinopril (PRINIVIL,ZESTRIL) 10 MG tablet Take 10 mg by mouth daily Active Ascorbic Acid (VITAMIN C PO) Activ e [place]-3 Fatty Acids (FISH OIL PO) Active Multiple Vitamin (DAILY MULTIVITAMIN PO) Act hortencia aspirin 81 MG tablet Take by mouth daily Active LANsoprazole (PREVACID) 30 MG capsule Take by mouth daily Active CALCIUM-MAGNESIUM- VITAMIN D PO Take by mouth daily Active amoxicillin (AMOXIL) 500 MG capsule Take 2,000 mg by mouth daily TAKE BEFORE DENTIST APPOINTMENTS Active clotrimazole (LOTRIMIN) 1 % cream Apply topically 2 times daily as needed Active naproxen sodium 220 MG capsule Take 220 mg by mouth 2 times daily Active ACETAMINOPHEN PO Act hortencia acetaminophen-code ine (TYLENOL #3) 300-30 MG per tablet Take [...] (VITAMIN D3) 1000 units CAPS 1,000 capsules Acti ve oxybutynin (DITROPAN-XL) 5 MG 24 hr tablet Take 5 mg by mouth 03/11/19 18 Active nystatin (MYCOSTATIN) 634485 UNIT/GM external powder APPLY 1 APPLICATION TOPICALLY TWICE DAILY. 04/03/19 18 Active insulin glargine (BASAGLAR KWIKPEN) 100 UNIT/ML pen Inject Subcutaneous daily Active tolterodine ER (DETROL LA) 4 MG 24 hr capsule Take 4 mg by mouth daily Active LEVEMIR FLEXTOUCH 100 UNIT/ML pen Inject 12 Units Subcutaneous At Bedtime 12 UNIT (0.12 ML) SUBCUTANEOUSLY EVERY DAY AT BEDTIME FOR DIABETES MELLITUS PEN PLEASE 03/06/19 23 Active primidone (MYSOLINE) 250 MG tabletIndications: Tremor Take 1 tablet (250 mg) by mouth every morning 90 tablet 3 04/23/19 24 Active divalproex sodium extended-release (DEPAKOTE ER) 250 MG 24 hr tabletIndications: Localization-relat ed epilepsy (H) Take 3 tablets (750 mg) by mouth 2 times daily - Oral 540 tablet 3 04/23/19 24 Active pregabalin (LYRICA) 100 MG capsuleIndications :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 (H) TAKE 1 CAPSULE (100 MG) BY MOUTH EVERY MORNING 90 capsule 1 11/26/19 24 Active pregabalin (LYRICA) 50 MG capsuleIndications :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 (H) TAKE 1 CAPSULE (50 MG) BY MOUTH DAILY (WITH LUNCH) AND 1 CAPSULE (50 MG) EVERY EVENING. 180 capsule 1 11/26/19 24 Active Active Problems Problem Noted Date Diagnosed Date Morbid obesity 04/26/2022 Epilepsy 02/10/2014 Immunizations Name Administration Dates Next Due Flu, Unspecified 01/25/2018 [id number] Novel Flu 11/17/2009 Hepatitis A (ADULT 19+) 01/25/2021 Influenza (High Dose) Trival ent,PF (Fluzone) 11/14/2018,12/09/2017,11/09/2013 Influenza Vaccine 65+ (FLUAD) 11/22/2020 Influenza [...] Sex Assigned at Female 04/04/2021 11:57 AM ROLL OFF DRIVER Legal Sex Female 4:19 AM ROLL OFF DRIVER Gender Identity Female 04/04/2021 11:57 AM ROLL OFF DRIVER Sexual Orientation Not on file Last Filed Vital Signs Vital Sign Reading Time Taken Comments Blood Pressure 125/82 05/23/2023 10:59 AM CDT Pulse 80 05/23/2023 10:59 AM CDT Temperature 36 C (96.8 F) 05/23/2023 10:59 AM CDT Respiratory Rate 16 [...] Epilepsy Care [address], [address] [place] [address] Birgit Whipple MD [address] [place], [place] [address] Procedures Procedure Name Priority Date/Time Associated Diagnosis Comments BASIC METABOLIC PANEL Routine 04/17/2018 5:47 AM ROLL OFF DRIVER COLONOSCOPY Routine 09/05/2007 9:35 AM CDT from Last 3 Months or Most Recently Relevant to Health Maintenance Results * (ABNORMAL) Basic metabolic panel (04/17/2018 5:47 AM ROLL OFF DRIVER) Sodium 133(L) 136 - 145 mmol/L 04/17/2018 3:26 PM [facility] Potassium 4.7 3.5 - 5.0 mmol/L 04/17/2018 3:26 PM [facility] Chloride 98 98 - 107 mmol/L 04/17/2018 3:26 PM [facility] Carbon Dioxide (CO2) 24 22 - 31 mmol/L 04/17/2018 3:26 PM [facility] Anion Gap 11 5 - 18 mmol/L 04/17/2018 3:26 PM [facility] Glucose 131(H) 70 - 125 mg/dL 04/17/2018 3:26 PM ROLL OFF DRIVER [facility] Calcium 9.5 8.5 - 10.5 mg/dL 04/17/2018 3:26 PM [facility] Urea Nitrogen 12 8 - 28 mg/dL 04/17/2018 3:26 PM [facility] Creatinine 0.69 0.60 - 1.10 mg/dL 04/17/2018 3:26 PM [facility] GFR Estimate If Black >60 >60 mL/min/1.7 3m2 04/17/2018 3:26 PM [facility] GFR Estimate >60 >60 mL/min/1.7 2 04/17/2018 3:26 PM [facility] Blood specimen (specimen) STRUCTURE OF RIGHT UPPER LIMB / Unknown Venipuncture / Unknown 04/17/2018 5:47 AM ROLL OFF DRIVER 04/17/2018 2:22 PM ROLL OFF DRIVER Narrative [facility] - 04/17/2018 3:26 PM ROLL OFF DRIVER Fasting Glucose reference range is 70-99 mg/dL per [place] Diabetes Association (ADA) guidelines. Montserrat Fall MD LAB - BLOOD ORDERABLES Fi nal Result Performing Organization Address [facility]/State/ZIP Co de Phone Number [facility] [address] [address], [facility] [address] [address] * COLONOSCOPY (09/05/2007 9:35 AM CDT) [facility] Signature COLONOSCOPY Endoscopy Patient Name: Kisha Gandara Gender: F Procedure Date: 09/05/2007 9:35 AM Date of : 1945 Age: 62 Admit Type: Outpatient Attending MD: Navi Chairez MD Procedure: Colonoscopy Indications: Average risk screening for malignant neoplasm in the colon Providers: Navi Chairez MD Referring MD: Binu Kong MD Medicines: Fentanyl 100 micrograms IV, Midazolam 2 mg IV, Atropine 0.6 mg IV Complications: No immediate complications Procedure: - Prior to the procedure, a History and Physical was performed, and patient medication allergies were reviewed. The patient is competent. The risks and benefits of the procedure and the sedation options and risks were discussed with the patient. All questions were answered and informed consent was obtained. Patient identification and proposed procedure were verified by the physician in the procedure room. Mental Status Examination: alert and oriented. Airway Examination: normal oropharyngeal airway and neck mobility. Respiratory Examination: clear to auscultation. CV Examination: normal. ASA Grade Assessment: I - A normal, healthy patient. After reviewing the risks and benefits, the patient was deemed in satisfactory condition to undergo the procedure. The anesthesia plan was to use moderate sedation / analgesia (conscious sedation). Immediately prior to administration of medications, the patient was re-assessed for adequacy to receive sedatives. The heart rate, respiratory rate, oxygen saturations, blood pressure, adequacy of pulmonary ventilation, and response to care were monitored throughout the procedure. The physical status of the patient was re-assessed after the procedure. After obtaining informed consent, the colonoscope was passed under direct vision. Throughout the procedure, the patient's blood pressure, pulse, and oxygen saturations were monitored continuously. The [id number]-Q180AL #[id number] was introduced through the anus and advanced to the cecum, identified by appendiceal orifice & IC valve. The colonoscopy was performed without difficulty. The patient tolerated the procedure well. The quality of the prep was good. Findings: The digital rectal exam was normal. Multiple small-mouthed diverticula were found in the sigmoid colon. A sessile polyp was found in the cecum. The polyp was 3 mm in size. This was biopsied with a hot forceps for histology. The rectum, descending colon, splenic flexure, transverse colon, hepatic flexure, ascending colon and ileocecal valve appeared normal. The retroflexed view of the anal verge was normal and showed no anal or rectal abnormalities. Impression: - Diverticulosis sigmoid colon. - A 3 mm polyp in the cecum. Tissue was removed. - The rectum, descending colon, splenic flexure, transverse colon, hepatic flexure, ascending colon and ileocecal valve are normal. Recommendation: - Discharge patient to home (ambulatory). - Patient should telephone endoscopist in 1 week. - If polyp is adenomatous repeat colonoscopy in 3 years. If polyp is hyperplastic then hemoccults q yr and flex sigmoidoscopy in 3 yrs. - Return to primary care physician PRN. Rosy Chairez M.D Navi Chairez MD Signed Date: 09/05/2007 10:13 AM Number of Addenda: 0 I was physically present for the entire viewing portion of the exam. Note initiated on 09/05/2007 9:33 AM RADIOLOGY RESULTS COLONOSCOPY RADIOLOG Y RESULTS 09/05/2007 9:35 AM CDT us Binu Kong MD PROCEDURES Final Res ult RADIOLOGY RESULTS from Last 3 Months or Most Recently Relevant to Health Maintenance Insurance MEDICARE MED[employer] MEDICARE [employer] Care Teams Field Geologist Relationship Specialty Start Date End Date Chele Mena MD [facility] [address] [place] [address] PCP - General Internal Medicine 11/28/12 Birgit Whipple MD [facility] [address] [place] [address] Neurology 06/16/14 Dragan Ritter MD [facility] [address] [place] [address] Urology 06/10/17 Birgit Whipple MD [address] [place] [id number] Assigned Neuroscience Provider 04/03/20
--- OUTSIDE RECORDS SUMMARY | 2024-03-05 20:22 | XMS_ITS | Clinical Summary ---
Author Organization [place] Address [address] [place] [address] Care Team Providers Care Filler Shaker Name Role Phone Chele Mena MD Primary Care Provider Birgit Whipple MD Unavailable Dragan Ritter MD Unavailable [phone] Birgit Whipple MD Unavailable [phone] Allergies Active Allergy Reactions Criticality Noted Date [...] Ascorbic Acid (VITAMIN C PO) Activ e [place]-3 Fatty Acids (FISH OIL PO) Active Multiple [...] by mouth 03/11/19 18 Active nystatin (MYCOSTATIN) 031835 UNIT/GM external powder APPLY 1 APPLICATION TOPICALLY [...] Administration Dates Next Due Flu, Unspecified 01/25/2018 [id number] Novel Flu 11/17/2009 Hepatitis A (ADULT 19+) [...] Sex Assigned at Female 04/04/2021 11:57 AM HOME SECURITY PROFESSIONAL Legal Sex Female 4:19 AM HOME SECURITY PROFESSIONAL Gender Identity Female 04/04/2021 11:57 AM HOME SECURITY PROFESSIONAL Sexual Orientation Not on file Last Filed [...] Ep[facility]psy [facility] [address], [address] [place] [address] Birgit Whipple MD [address] [place], [place] [id number] Health Maintenance Due Date Last Done Comments ADVANCE CARE PLANNING 1945 ANNUAL REVIEW OF HM ORDERS 1945 DEXA 1945 LIPID 1945 HEPATITIS C SCREENING 09/01/1963 MEDICARE ANNUAL WELLNESS VISIT 2010 MAMMO SCREENING 06/10/2018 06/10/2017 (Not Needed) RSV VACCINE (1 - 1-dose 75+ series) 2020 GLUCOSE 04/17/2021 04/17/2018 COVID-19 Vaccine ( season) 2023 12/12/2022, 08/02/2022, 11/25/2021, Additional history exists INFLUENZA VACCINE (#1) 2023 , 11/25/2021, 11/22/2020, Additional history exists FALL RISK ASSESSMENT 05/22/2024 05/23/2023, 04/11/2021, 04/06/2019, Additional history exists DTAP/TDAP/TD IMMUNIZATION (3 - Td or Tdap) 12/05/2028 12/05/2018, 11/21/2012, 11/21/2012 COLONOSCOPY Discontinued 09/05/2007 COLORECTAL CANCER SCREENING Discontinued Pneumococcal Vaccine: 50+ Years Completed 10/23/2017, 04/07/2015, 12/01/2013, Additional history exists ZOSTER IMMUNIZATION Completed 11/13/2018, 08/07/2018, 10/23/2017, Additional history exists PHQ-2 (once per calendar [...] BASIC METABOLIC PANEL Routine 04/17/2018 5:47 AM HOME SECURITY PROFESSIONAL COLONOSCOPY Routine 09/05/2007 9:35 AM CDT from Last 3 Months or Most Recently Relevant to Health Maintenance Results * (ABNORMAL) Basic metabolic panel (04/17/2018 5:47 AM HOME SECURITY PROFESSIONAL) Sodium 133(L) 136 - 145 mmol/L 04/17/2018 3:26 PM [facility] Potassium 4.7 3.5 - 5.0 mmol/L 04/17/2018 3:26 PM [facility] Chloride 98 98 - 107 mmol/L 04/17/2018 3:26 PM [facility] Carbon Dioxide (CO2) 24 22 - 31 mmol/L 04/17/2018 3:26 PM [facility] Anion Gap 11 5 - 18 mmol/L 04/17/2018 3:26 PM [facility] Glucose 131(H) 70 - 125 mg/dL 04/17/2018 3:26 PM [facility] Calcium 9.5 8.5 - 10.5 mg/dL 04/17/2018 3:26 PM [facility] Urea Nitrogen 12 8 - 28 mg/dL 04/17/2018 3:26 PM HOME SECURITY PROFESSIONAL [facility] Creatinine 0.69 0.60 - 1.10 mg/dL 04/17/2018 3:26 PM HOME SECURITY PROFESSIONAL [facility] GFR Estimate If Black >60 >60 mL/min/1.7 [facility] 04/17/2018 3:26 PM HOME SECURITY PROFESSIONAL [facility] GFR Estimate >60 >60 mL/min/1.7 [facility] 04/17/2018 3:26 PM HOME SECURITY PROFESSIONAL [facility] Blood specimen (specimen) STRUCTURE OF RIGHT UPPER LIMB / Unknown Venipuncture / Unknown 04/17/2018 5:47 AM HOME SECURITY PROFESSIONAL 04/17/2018 2:22 PM HOME SECURITY PROFESSIONAL Narrative [facility] - 04/17/2018 3:26 PM HOME SECURITY PROFESSIONAL Fasting Glucose reference range is 70-99 mg/dL per [place] Diabetes Association (ADA) guidelines. Montserrat Fall MD LAB - BLOOD ORDERABLES Fi nal Result [facility] [address] [address], [facility] [address] [address] * COLONOSCOPY (09/05/2007 9:35 AM CDT) COLONOSCOPY Endoscopy Patient Name: Kisha Gandara Gender: [...] oxygen saturations were monitored continuously. The PCF-Q180AL #[id number] was introduced through the anus and advanced [...] Health Maintenance Insurance MEDICARE MEDICA [employer] SOLUTION [employer] MEDICARE [employer] Care Teams Filler Shaker Relationship Specialty Start Date End Date Chele Mena MD [facility] [address] [place] [address] PCP - General Internal Medicine 11/28/12 Birgit Whipple MD [facility] [address] [place] [address] Neurology 06/16/14 Dragan Ritter MD [facility] [address] [place] [address] Urology 06/10/17 Birgit Whipple MD [address] [place] [id number] Assigned Neuroscience Provider 04/03/20
--- OUTSIDE RECORDS SUMMARY | 2024-03-05 20:22 | XMS_ITS | Encounter Summary ---
Author Organization [place] Address [address] [place] [address] Care Team Providers Care Door To Door Sales Representative Name Role Phone Chele Mena MD Primary Care Provider Birgit Whipple MD Unavailable [phone] SoDragan galeas MD Unavailable [phone] Birgit Whipple MD Unavailable [phone] Encounter Details Date Type Department Care Team (Latest Contact Info) Description 04/13/2022 External Order Results [facility] [address] [place] [address] Outside, Provider Diabetic polyneuropathy associated with diabetes [...] Sex Assigned at Female 04/04/2021 11:57 AM SWEATBAND SEPARATOR Legal Sex Female 4:19 AM SWEATBAND SEPARATOR Gender Identity Female 04/04/2021 11:57 AM SWEATBAND SEPARATOR Sexual Orientation Not on file documented as of this encounter Plan of Treatment Upcoming Encounters Date Type Department Care Team (Late st Contact Info) Description 05/21/2024 11:00 AM CDT Office Visit [facility] [address], [address] [place] [phone] Birgit Whipple MD [address] [place] [address] documented as of this encounter Procedures Procedure Name Priority Date/Time Associated Diagnosis Comments PREGABALIN LEVEL Routine 04/13/2022 3:26 PM SWEATBAND SEPARATOR 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 (H) documented in this encounter Results * Pregabalin Level: Random (04/13/2022 3:26 PM SWEATBAND SEPARATOR) PREGABALIN (EXTERNAL) 2.6 ug/mL NON-INTERFACED (ONBASE SCANS) Blood 04/13/2022 3:26 PM SWEATBAND SEPARATOR Narrative [facility] - 04/19/2022 10:49 AM SWEATBAND SEPARATOR Verified by Cheryl Soto on 04/19/2022. us Birgit Whipple MD LAB - BLOOD ORDERABLES E dited Result - Final [facility]IE PFT NON-INTERFACED (ONBASE SCANS) documented in this encounter Visit Diagnoses Diagnosis 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 (H) documented in this encounter Care Teams Door To Door Sales Representative Relationship Specialty Start Date End Date Chele Mena MD [facility] [address] [place] [address] PCP - General Internal Medicine 11/28/12 Birgit Whipple MD [facility] [address] [place] [address] Neurology 06/16/14 Dragan Ritter MD [facility] [address] [place] [address] Urology 06/10/17 Birgit Whipple MD [address] [place] [id number] Assigned Neuroscience Provider 04/03/20 documented as of this encounter
[2024-03-05 20:38] VITALS: BP 151/82; PULSE 144; RESP 20; TEMP 36.9; O2SAT 94; BMI 42.1
[2024-03-05 20:58] VITALS: O2SAT 94
--- NOTE | 2024-03-05 20:58 | CRLHL7_ITS ---
For Patients: As a result of the Century Cures Act, medical imaging exams and procedure reports are released immediately into your electronic medical record. You may view this report before your referring provider. If you have questions, please contact your health care provider. INDICATION: Cough, shortness of breath. TECHNIQUE: Chest 2 views. COMPARISON: April 02, 2018. FINDINGS: Cardiovascular and mediastinum: Stable heart size and vasculature. Lungs and pleural spaces: Low lung volumes with patchy lower lobe interstitial/airspace disease. No sign of infiltrate or mass. No sign of pleural effusion. No pneumothorax. Bones and soft tissues: No significant findings. IMPRESSION: Low lung volumes with patchy lower lobe interstitial/airspace disease, possibly pulmonary edema or infection in the appropriate clinical setting. Dictated by Justo Thomas MD @ 03/05/2024 9:20:41 PM (Electronically Signed)
--- NOTE | 2024-03-05 21:01 | ED_ITS ---
HPI - General Adult General Chief complaint: Cough Stated complaint: Fever, lethargy Time Seen by Provider: 03/05/24 20:47 Source: patient and family Mode of arrival: ambulatory Limitations: no limitations History of Present Illness HPI narrative: 78-year-old female presents the emergency department for evaluation of a cough and weakness. Started 3-4 days ago. No trauma or injury. Denies prior history of heart problems. No prior history of AFib or arrhythmias. No pertinent travel, no known illness exposures. Has tried Mucinex with no significant improvement in symptoms. Notes nasal congestion, no sore throat. No nausea or vomiting. Feeling gradually weaker. Uses a walker at baseline. Does not believe she has been running a fever. No history of chronic lung disease, COPD or asthma. Past medical history notable for peripheral neuropathy, insulin-dependent diabetes, hypertension, morbid obesity, seizure disorder. She is unable to list her medications for me but her can fill these in. Allergies reviewed, notable for oxcarbamazepine, lacosamide. Nonsmoker. ROS notable for the respiratory and generalized symptoms as above, otherwise denies times 12 systems. Related Data Home Medications ?Medication ?Instructions ?Recorded ?Confirmed acetaminophen 500 mg tablet 500 mg PO .prn PRN 11/02/21 07/31/23 aspirin 81 mg tablet,delayed 81 mg PO DAILY 11/02/21 07/31/23 release cholecalciferol (vitamin D3) 25 25 mcg PO DAILY 11/02/21 07/31/23 mcg (1,000 unit) capsule multivitamin with minerals 1 tab PO QDAY 11/02/21 07/31/23 omega 4-kak-tcn-fish oil 100 1 cap PO DAILY 11/02/21 07/31/23 mg-160 mg-1,000 mg capsule (Fish Oil) pregabalin 100 mg capsule 100 mg PO .Am 11/02/21 07/31/23 pregabalin 50 mg capsule 50 mg PO .6 Pm, 10PM 11/02/21 07/31/23 divalproex 250 mg tablet,extended mg PO 12/21/22 07/31/23 release 24 hr primidone 250 mg tablet 250 mg PO DAILY 12/21/22 07/31/23 Previous Rx's ?Medication ?Instructions ?Recorded insulin glargine 100 unit/mL (3 12 unit (0.12 mL) subcut QPM 03/01/23 mL) subcutaneous pen (Lantus Diabetes #15 mL Solostar U-100 Insulin) blood sugar diagnostic (Accu-Chek #100 ea 03/04/23 Guide test strips) lancets (Accu-Chek Softclix #100 ea 04/12/23 Lancets) metoprolol tartrate 50 mg tablet 50 mg PO BID #180 tabs 08/01/23 simvastatin 20 mg tablet 20 mg PO QPM #90 tabs 08/01/23 pen needle, diabetic 31 gauge x #100 ea 12/03/2305/10 (BD Ultra-Fine Mini Pen Needle) nystatin 100,000 unit/gram topical 1 applic topical BID Rash #60 grams 01/06/24 powder lisinopril 10 mg tablet 10 mg PO DAILY #90 tabs 02/27/24 Allergies Allergy/AdvReac Type Severity Reaction Status Date / Time oxcarbazepine Allergy Severe Rash Verified 03/05/24 20:40 lacosamide Allergy Intermediate hallucinati Verified 03/05/24 20:40 ons Bee venom Allergy Unknown Uncoded 01/07/24 09:47 PFSH PFS Medical History Breast cancer ?C50.919 - Malignant neoplasm of unspecified site of unspecified female breast (ICD-10) History of malignant neoplasm of breast ?Z85.3 - Personal history of malignant neoplasm of breast (ICD-10) History of ischemic colitis (2017) ?Z87.19 - Personal history of other diseases of the digestive system (ICD-10) Encounter for screening for COVID-19 ?Z11.52 - Encounter for screening for COVID-19 (ICD-10) Surgical History Status post total right knee replacement ?Z96.651 - Presence of right artificial knee joint (ICD-10) Status post total knee replacement ?Z96.659 - Presence of unspecified artificial knee joint (ICD-10) History of bilateral mastectomy ?Z90.13 - Acquired absence of bilateral breasts and nipples (ICD-10) Social History What is your current living situation?: I presently have a place to live Problems where you live: no known problems In the past 12 months, utilities in danger of being shut off: no In past 12 months, lack of transportation kept you from medical appts, meetings, work, or getting things needed for daily living: no In the past 12 mos, have been you worried that your food would run out before you had money to buy more?: never true In the past 12 mos, the food you bought just didn't last and you didn't have money to buy more?: never true Smoking Status: Never smoker How often does anyone, including family, friends and others, physically hurt you : never How often does anyone, including family, friends and others, insult or talk down to you: never How often does anyone, including family, friends and others, threaten you with harm: never How often does anyone, including family, friends and others, scream or curse at you: never service: No Exam Const: Vital Signs, click to edit/add: Vital Signs - 24 hr 03/05/24 20:38 03/05/24 20:58 Temperature 98.5 F Pulse Rate [Right Pulse Oximeter] 144 H Respiratory Rate 20 Blood Pressure [Le ft Upper Arm] 151/82 H Pulse Oximetry 94 94 Oxygen Delivery Me thod Room Air Documenting provider has reviewed patient's vital signs: yes Common normals: no apparent distress General appearance: cooperative Other: Appears weak, mildly dyspneic. HENMT: Common normals: normocephalic Head and scalp: normocephalic Face and sinus: normal facial exam Mouth: oral and palatal mucosa normal Eye: Common normals: conjunctivae normal General eye: normal appearance of both eyes Conjunctiva: conjunctiva(e) normal Chest: Common normals: inspection of chest normal Resp: Other: No tachypnea. Breath sounds are decreased and has coarse upper airway sounds with mild expiratory wheeze. Breath sounds seem symmetric, but distant. Cardio: Other: Tachycardic, even minimal exertion like pulling herself up with the bed rails which she required significant assistance for causes a heart rate to the sore to most 200, is about 140 at rest. I am thinking it might be irregular but pulses are thready. GI: Common normals: Normal to inspection, nondistended, normoactive bowel sounds present, soft to palpation, non-tender, no hepatosplenomegaly and no masses Palpation: soft and no hepatosplenomegaly Back & Pelvis: Common normals: thoracic and lumbar spine normal to inspection Extremity: Common normals: normal capillary refill Other: 1+ bilateral dependent appearing edema, symmetric. No redness. Neuro: Speech: speech normal Other: Cannot list medical conditions or medications. Seems slightly drowsy. No other focal neurological deficits. Will follow commands. Psych: Attitude: calm Insight: fair Judgement: fair Skin: Common normals: no rashes or lesions noted General skin exam: no rashes or lesions noted Course Course ED Course: 78-year-old female with weakness and cough, suspicious for sepsis. Very tachycardic, suspicious for arrhythmia versus sinus tachycardia due to acute illness. Will obtain EKG, placed peripheral IV, start a bolus of 500 mL of normal saline. Chest x-ray. Laboratory studies including sepsis workup, viral swabs, cardiac workup. Anticipate that she will need hospitalization. Placed on front desk monitor and continuous pulse oximetry. Reevaluation(s) Time of Reevaluation #1: 22:17 Reevaluation #1: Counseled family on findings of pneumonia. No signs of heart failure which is reassuring. Heart rate has come down to the 130s after the 1st 500 mL, will give another 1 L. I did we need to be cautious with this. She is at high risk for heart failure and with her ideal body weight, 20 mg/mg sepsis bolus would be closer to 1500 mL. Repeat lactate pending. Blood cultures ordered. Will start Rocephin and azithromycin. Spoke with hospitalist, will admit for management of pneumonia, sepsis, hyponatremia, weakness. Vital Signs Vital signs: Initial Vital Signs Respiratory Effort Labored 03/05/24 20:34 Respiratory Depth Shallow 03/05/24 20:34 Respiratory Pattern Irregular 03/05/24 20:34 Vital Signs Temperature 98.5 F 03/05/24 20:38 Pulse Rate 144 H 03/05/24 20:38 Respiratory Rate 20 03/05/24 20:38 Blood Pressure 151/82 H 03/05/24 20:38 Pulse Oximetry 94 03/05/24 20:38 Oxygen Delivery Method Room Air 03/05/24 20:38 Temperature 98.5 F 03/05/24 20:38 Pulse Rate 144 H 03/05/24 20:38 Respiratory Rate 20 03/05/24 20:38 Blood Pressure 151/82 H 03/05/24 20:38 Pulse Oximetry 94 03/05/24 20:58 Oxygen Delivery Method Room Air 03/05/24 20:38 Medications Administered Medications: Discontinued Medications Generic Name Dose Route Start Last Admin Trade Name Abhilash PRN Reason Stop Dose Admin Albuterol/Ipratropium 1 neb 03/05/24 20:58 03/05/24 21:47 Iprat-Albut 0.5-2.5 Mg/3 Ml Neb IH 03/05/24 20:59 1 neb ONCE ONE Administration Sodium Chloride 500 mls @ 500 mls/hr 03/05/24 21:00 03/05/24 21:57 0.9 % Sodium Chloride 500 Ml IV 03/05/24 21:59 Infused .Q1H ONE Infusion Medical Decision Making Lab Data Lab results reviewed: Yes I reviewed the patient's lab results Lab results narrative: Cardiac labs reassuring. Mild leukocytosis. CRP quite elevated. Sodium low, question chronicity. Labs: Lab Results 03/05/24 03/05/24 03/05/24 Range/Units 20:32 20:58 21:20 WBC 11.22 H (4.50-11.00) K/uL RBC 4.29 (4.00-5.20) m/uL Hgb 13.9 (12.0-16.0) gm/dL Hct 40.6 (33.0-51.0) % MCV 95 (80-100) fL MCH 32 (26-34) pg MCHC 34 (32-36) gm/dL RDW Coeff of Valerie 13.0 (11.5-15.5) % Plt Count 173 (140-440) K/uL Neut % (Auto) 51.5 (42.0-72.0) % Lymph % (Auto) 29.0 (20-44) % [place] % (Auto) 16.9 H (0.0-11.0) % Eos % (Auto) 1.7 (0.0-7.0) % Baso % (Auto) 0.4 (0.0-3.0) % Neut # (Auto) 5.80 (1.7-7.0) K/uL Lymph # (Auto) 3.30 H (0.90-2.90) K/uL [place] # (Auto) 1.90 H (0.00-0.90) K/UL Eos # (Auto) 0.20 (0.00-0.50) K/uL Baso # (Auto) 0.00 (0.00-0.30) K/uL Abs Immat Gran (auto) 0.10 (0.00-0.30) K/uL Imm/Tot Granulo (auto) 0.5 % Sodium 124 L* (135-149) mmol/L Potassium 4.6 (3.6-5.1) mmol/L Chloride 91 L (96-114) mmol/L Carbon Dioxide 23 (20-32) mmol/L Anion Gap 10 (7-15) mEq/L BUN 16 (7-30) mg/dL Creatinine 0.4 L (0.5-1.5) mg/dL Estimated Creat Clear 40.04 Estimated GFR 101 ml/min Glucose 190 H (60-115) mg/dL Lactate 3.1 H (0.5-1.9) mmol/L Calcium 9.2 (8.4-10.6) mg/dL Total Bilirubin 0.8 (0.1-1.5) mg/dL AST 37 H (12-35) U/L ALT 29 (4-35) U/L Alkaline Phosphatase 80 (40-150) U/L Troponin I 0.02 (0.01-0.04) ng/mL C-Reactive Protein 7.9 H (0.5-1.0) mg/dL NT-Pro-B Natriuret Pep 718 pg/mL Total Protein 7.6 (6.0-8.3) g/dL Albumin 4.1 (3.3-5.0) g/dL SARS-CoV-2 (PCR) Negative SARS-CoV-2 (Negative) Influenza Type A (PCR) Negative PCR FLU A (Negative) Influenza Type B (PCR) Negative PCR FLU B (Negative) RSV (PCR) Negative PCR RSV (Negative) POC Troponin I 0.00 L (0.01-0.04) ng/ml Imaging Data Chest x-ray: Attestation: I have reviewed the pertinent imaging results. My impression: Low lung volumes, difficult to interpret. Bases are patchy, difficult to tell if this is pneumonia or heart failure. Has some cardiomegaly as well. Radiologist's impression: IMPRESSION: Low lung volumes with patchy lower lobe interstitial/airspace disease, possibly pulmonary edema or infection in the appropriate clinical setting. Dictated by Justo Thomas MD @ 03/05/2024 9:20:41 PM ECG Data Attestation: I personally reviewed and interpreted this ECG as follows: Interpretation: I think that I am seeing P waves here and does seem regular, sinus tachycardia. Rate around 150. Overall low voltage, but does seem to be normal axis. Intervals seem appropriate. Some inferior lead changes. Discharge Plan Discharge Clinical Impression: Community acquired pneumonia, Sepsis, Acute hyponatremia, Weakness Patient Disposition: Admitted As Inpatient
[2024-03-05 21:19] LABS: PCR FLU A Negative PCR FLU A (Negative); PCR FLU B Negative PCR FLU B (Negative); PCR RSV Negative PCR RSV (Negative); SARS PCR* Negative SARS-CoV-2 (Negative)
[2024-03-05 21:28] LABS: Lactate Sepsis w/Reflex* 3.1 mmol/L (0.5-1.9)
[2024-03-05 21:36] LABS: Basophils Percent Auto 0.4 % (0.0-3.0); Eosinophils Percent Auto 1.7 % (0.0-7.0); Hematocrit 40.6 % (33.0-51.0); Hemoglobin* 13.9 gm/dL (12.0-16.0); Immature Granulocytes Pct Auto 0.5 %; Mean Corpuscular HGB Conc 34 gm/dL (32-36); Mean Corpuscular Hemoglobin 32 pg (26-34); Mean Corpuscular Volume 95 fL (80-100); Monocytes Percent Auto 16.9 % (0.0-11.0); Neutrophils Percent Auto 51.5 % (42.0-72.0); Platelet Count* 173 K/uL (140-440); Red Blood Count 4.29 m/uL (4.00-5.20); White Blood Count* 11.22 K/uL (4.50-11.00)
--- OUTSIDE RECORDS SUMMARY | 2024-03-05 21:39 | XMS_ITS | Encounter Summary ---
Author Organization [facility] Address [address] [place] [address] Care Team Providers Care Medical Doctor Md/Medical Director Name Role Phone Chele Mena MD Primary Care Provider Birgit Whipple MD Unavailable Dragan Ritter MD Unavailable Birgit Whipple MD Unavailable Encounter Details Date Type Department Care Team (Late st Contact Info) Description 04/13/2022 External Order Results [facility] [address] [place] [address] Nader Colon MD [facility] [address] [id number] Focal epilepsy (H); Tremor Social History Tobacco Use Types Packs/Day Years Used Date Smoking Tobacco: Never Smokeless Tobacco: Never Alcohol Use Standard Drinks/Week Comments No 0 (1 standard drink = 0.6 oz pur e alcohol) PHQ-2 Answer Date Recorded PHQ-2 Score 0 03/29/2020 Comments No Sex and Gender Information Value Date Recorded Sex Assigned at Female 04/04/2021 11:57 AM CORROSION TECHNICIAN Legal Sex Female 4:19 AM CORROSION TECHNICIAN Gender Identity Female 04/04/2021 11:57 AM CORROSION TECHNICIAN Sexual Orientation Not on file documented as of this encounter Plan of Treatment Upcoming Encounters Date Type Department Care Team (Late st Contact Info) Description 05/21/2024 11:00 AM CDT Office Visit [facility] [address], [address] [place] [phone] Birgit Whipple MD [address] [place] [address] documented as of this encounter Procedures Procedure Name Priority Date/Time Associated Diagnosis Comments VALPROIC ACID FREE AND TOTAL Routine 04/13/2022 3:26 PM CORROSION TECHNICIAN Focal epilepsy (H) VALPROIC ACID Routine 04/13/2022 3:26 PM CORROSION TECHNICIAN Focal epilepsy (H) PRIMIDONE LEVEL Routine 04/13/2022 3:26 PM CORROSION TECHNICIAN Tremor PHENOBARBITAL LEVEL Routine 04/13/2022 3 :26 PM CORROSION TECHNICIAN documented in this encounter Results * Valproic acid (04/13/2022 3:26 PM CORROSION TECHNICIAN) VALPROIC ACID LEVEL (EXTERNAL) 50 50 - 100 mcg/mL NON-INTERFACED (ONBASE SCANS) Blood 04/13/2022 3:26 PM CORROSION TECHNICIAN Narrative YUKO PFT - 04/16/2022 1:02 PM CORROSION TECHNICIAN Verified by Christine Barber on 04/16/2022. us Birgit Whipple MD LAB - BLOOD ORDERABLES E dited Result - Final FRANCISDenny PFT NON-INTERFACED (ONBASE SCANS) * (ABNORMAL) Phenobarbital level (04/13/2022 3:26 PM CORROSION TECHNICIAN) PHENOBARBITAL LEVEL (EXTERNAL) 7.7(L) 15.0 - 40.0 ug/mL NON-INTERFACE D (ONBASE SCANS) Blood BLOOD SPECIMEN / Unknown 04/13/2022 3:26 PM CORROSION TECHNICIAN Narrative BREEZE PFT - 04/16/2022 11:59 AM CORROSION TECHNICIAN Verified by Christine Barber on 04/16/2022. us Birgit Whipple MD LAB - BLOOD ORDERABLES E dited Result - Final BREEZE PFT NON-INTERFACED (ONBASE SCANS) * Primidone level (04/13/2022 3:26 PM CORROSION TECHNICIAN) PRIMIDONE LEVEL (EXTERNAL) 5.4 5.0 - 12.0 ug/mL NON-INTERFACED (ONBASE SCANS) Blood 04/13/2022 3:26 PM CORROSION TECHNICIAN Narrative BREEZE PFT - 04/16/2022 11:59 AM CORROSION TECHNICIAN Verified by Christine Barber on 04/16/2022. us Birgit Whipple MD LAB - BLOOD ORDERABLES E dited Result - Final BREEZE PFT NON-INTERFACED (ONBASE SCANS) * Valproic acid free (04/13/2022 3:26 PM CORROSION TECHNICIAN) VALPROIC ACID FREE (EXTERNAL) 10 5 - 25 mcg/mL NON-INTERFACED (ONBASE SCANS) Blood 04/13/2022 3:26 PM CORROSION TECHNICIAN Narrative BREEZE PFT - 04/16/2022 11:51 AM CORROSION TECHNICIAN Verified by Christine Barber on 04/16/2022. 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, without mention of intractable epilepsy Tremor Abnormal involuntary movements documented in this encounter Care Teams Medical Doctor Md/Medical Director Relationship Specialty Start Date End Date Chele Mena MD [facility] [address] [place] [address] PCP - General Internal Medicine 11/28/12 Birgit Whipple MD [facility] [address] [place] [address] Neurology 06/16/14 Dragan Ritter MD [facility] [address] [place] [address] Urology 06/10/17 Birgit Whipple MD [address] [place] [address] Assigned Neuroscience Provider 04/03/20 documented as of this encounter
--- OUTSIDE RECORDS SUMMARY | 2024-03-05 21:39 | XMS_ITS | Clinical Summary ---
Author Organization [facility] Address [place], [place] [address] Care Team Providers Care Water Reuse Program Manager Name Role Phone Chele Mena MD Primary Care Provider Mae Almeida AuD Unavailable [phone] Allergies Active Allergy Reactions Criticality Noted [...] times daily. 60 tablet 0 6 Active [id number] -Fish Oil (FISH OIL) 1,000 mg (120 [...] Name Comments Other Father at 51yo of [place]. Cancer-breast Maternal Aunt mothers twin dx age [...] on file Legal Sex Female 5:24 AM SPA DIRECTOR/FINANCE Gender Identity Not on file Sexual Orientation Not on file Obstetrics History Last Filed Vital Signs Vital Sign Reading Time Taken Comments Blood Pressure 153/85 03/09/2021 9:54 AM SPA DIRECTOR/FINANCE Pulse 78 03/09/2021 9:54 AM SPA DIRECTOR/FINANCE Temperature 36.7 C (98 F) 03/09/2021 9:54 AM SPA DIRECTOR/FINANCE Respiratory Rate 20 05/09/2020 9:51 AM CDT Oxygen Saturation 97% 03/09/2021 9:54 AM SPA DIRECTOR/FINANCE Inhaled Oxygen Concentration - - Weight 125.5 kg (276 lb 9.6 oz) 03/09/2021 9:54 AM SPA DIRECTOR/FINANCE Height 162.6 cm (5' 4) 04/02/2018 10:1 9 AM SPA DIRECTOR/FINANCE Body Mass Index 47.48 04/02/2018 10:19 AM SPA DIRECTOR/FINANCE Plan of Treatment Health Maintenance Due Date [...] history exists Medical Devices Implanted Type Area Carrier Washer Device Identifier Shelf Expiration Date Model / Serial / Lot [id number] plane runner Implanted:Qty: 1 on 01/29/2011 at [facility] Explanted:at [facility] (Quantity not on file) Right: Breast [employer] - [place] 09/26/2014 133MX-15-T / [id number] / Description:TISSUE SPACE CONTROLLER [id number] plane runner Implanted:Qty: 1 on 01/29/2011 at [facility] Explanted:at [facility] (Quantity not on file) Left: Breast [employer] - [place] 10/13/2014 133MX-15-T / [id number] / Description:TISSUE SPACE CONTROLLER [id number] [id number] Mammary 700cc [[id number]] Implanted:Qty: 1 on 08/28/2011 at [facility] Explanted:at [facility] (Quantity not on file) Right: Breast [employer] [place] [employer] [id number] # / [id number] / [id number] Implnt Mammary 700cc - [id number] Implanted:Qty: 1 on 08/28/2011 at [facility] Explanted:at [facility] (Quantity not on file) Left: Breast [employer] [id number] # / [id number] / [id number] 7breast 600cc Memorygel Rnd High Smooth Silcn Implanted:Qty: 1 on 02/12/2018 by Arin Stiles MD at [facility] Explanted:at [facility] (Quantity not on file) Left: Breast [employer] [place] [employer] 10/11/2021 [id number] # / [id number] Additional Health Concerns Infection Onset Date Last Indicated CLOSTRIDIUM DIFFICILE 04/03/2018 04/03/2018 Insurance MEDICARE PART B HB ONLY MEDICARE PART A HB ONLY MEDICA SELECT SOLUTION MEDICARE PB ONLY MEDICARE PPS Advance Directives Documents on File Type Date Recorded Patient Floor Person Expl anation Healthcare Directive 01/29/2011 09/20/10 * [...] 11:39 AM 01/02/2012 1:55 PM Care Teams Water Reuse Program Manager Relationship Specialty Start Date End Date Chele Mena MD [address] [place] [address] PCP - General 11/24/12 Mae Almieda AuD [address] [place] [address] Audiology 11/24/12
--- OUTSIDE RECORDS SUMMARY | 2024-03-05 21:39 | XMS_ITS | Clinical Summary ---
Author Organization [facility] Address [address] [place] [address] Care Team Providers Care Mailing Manager Name Role Phone Chele Mena MD Primary Care Provider Birgit Whipple MD Unavailable Dragan Ritter MD Unavailable [phone] Birgit Whipple MD Unavailable [phone] Allergies Active Allergy Reactions Criticality Noted Date [...] Ascorbic Acid (VITAMIN C PO) Activ e [place]-3 Fatty Acids (FISH OIL PO) Active Multiple [...] by mouth 03/11/19 18 Active nystatin (MYCOSTATIN) 899506 UNIT/GM external powder APPLY 1 APPLICATION TOPICALLY [...] Administration Dates Next Due Flu, Unspecified 01/25/2018 [id number] Novel Flu 11/17/2009 Hepatitis A (ADULT 19+) [...] Sex Assigned at Female 04/04/2021 11:57 AM MANAGEMENT SME Legal Sex Female 4:19 AM MANAGEMENT SME Gender Identity Female 04/04/2021 11:57 AM MANAGEMENT SME Sexual Orientation Not on file Last Filed [...] [facility] [address], [address] [place] [address] Birgit Whipple MD [address] [place], [place] [id number] Health Maintenance Due Date Last Done Comments [...] BASIC METABOLIC PANEL Routine 04/17/2018 5:47 AM MANAGEMENT SME COLONOSCOPY Routine 09/05/2007 9:35 AM CDT from Last 3 Months or Most Recently Relevant to Health Maintenance Results * (ABNORMAL) Basic metabolic panel (04/17/2018 5:47 AM MANAGEMENT SME) Sodium 133(L) 136 - 145 mmol/L 04/17/2018 3:26 PM [facility] Potassium 4.7 3.5 - 5.0 mmol/L 04/17/2018 3:26 PM [facility] Chloride 98 98 - 107 mmol/L 04/17/2018 3:26 PM [facility] Carbon Dioxide (CO2) 24 22 - 31 mmol/L 04/17/2018 3:26 PM [facility] Anion Gap 11 5 - 18 mmol/L 04/17/2018 3:26 PM [facility] Glucose 131(H) 70 - 125 mg/dL 04/17/2018 3:26 PM [facility] Calcium 9.5 8.5 - 10.5 mg/dL 04/17/2018 3:26 PM [facility] Urea Nitrogen 12 8 - 28 mg/dL 04/17/2018 3:[address] [facility] Creatinine 0.69 0.60 - 1.10 mg/dL 04/17/2018 3:[address] [facility] GFR Estimate If Black >60 >60 mL/min/1.7 [facility] 04/17/2018 3:[address] [facility] GFR Estimate >60 >60 mL/min/1.7 [facility] 04/17/2018 3:[address] [facility] Blood specimen (specimen) STRUCTURE OF RIGHT UPPER LIMB / Unknown Venipuncture / Unknown 04/17/2018 5:47 AM MANAGEMENT SME 04/17/2018 2:22 PM MANAGEMENT SME Narrative [facility] - 04/17/2018 3:26 PM MANAGEMENT SME Fasting Glucose reference range is 70-99 mg/dL per [place] [employer] Association (ADA) guidelines. Montserrat Fall MD LAB - BLOOD ORDERABLES Fi nal Result [facility] [address] [address], [facility] [address] [address] * COLONOSCOPY (09/05/2007 9:35 AM CDT) COLONOSCOPY [...] oxygen saturations were monitored continuously. The [id number] #[id number] was introduced through the anus and advanced [...] SOLUTION MEDICARE MEDICA SELECT SOLUTION Care Teams Mailing Manager Relationship Specialty Start Date End Date Chele Mena MD [facility] [address] [place] [address] PCP - General Internal Medicine 11/28/12 Birgit Whipple MD [facility] [address] [place] [address] Neurology 06/16/14 Dragan Ritter MD [facility] [address] [place] [address] Urology 06/10/17 Birgit Whipple MD [address] [place] [address] Assigned Neuroscience Provider 04/03/20
--- OUTSIDE RECORDS SUMMARY | 2024-03-05 21:39 | XMS_ITS | Encounter Summary ---
Author Organization [place] Address [address] [place] [address] Care Team Providers Care Social Studies Department Chair Name Role Phone Chele Mena MD Primary Care Provider Birgit Whipple MD Unavailable [phone] Dragan Ritter MD Unavailable Birgit Whipple MD Unavailable Encounter Details Date Type Department Care Team (Late st Contact Info) Description 06/06/2023 MyC Medical Adv[address] Physicians [facility] Epilepsy Care [address], [address] [place] [address] Birgit Whipple MD [address] [place], [place] [address] Social History Tobacco Use Types Packs/Day Years [...] Sex Assigned at Female 04/04/2021 11:57 AM REGISTERED PHYSICAL THERAPIST Legal Sex Female 4:19 AM REGISTERED PHYSICAL THERAPIST Gender Identity Female 04/04/2021 11:57 AM REGISTERED PHYSICAL THERAPIST Sexual Orientation Not on file documented as of this encounter Plan of Treatment Upcoming Encounters Date Type Department Care Team (Late st Contact Info) Description 05/21/2024 11:00 AM CDT Office Visit [facility] [address], [address] [place] [address] Birgit Whipple MD [address] [place] [address] documented as of this encounter Visit Diagnoses Not on filedocumented in this encounter Additional Health Concerns Assessment Noted Time PHQ-9 Depression Total Score: 3 04/27/19 23 7:00 AM REGISTERED PHYSICAL THERAPIST documented as of this encounter Care Teams Social Studies Department Chair Relationship Specialty Start Date End Date Chele Mena MD [facility] [address] [place] [address] PCP - General Internal Medicine 11/28/12 Birgit Whipple MD [facility] [address] [place] [address] Neurology 06/16/14 Dragan Ritter MD [facility] [address] [place] [address] Urology 06/10/17 Birgit Whipple MD [address] [place] [id number] Assigned Neuroscience Provider 04/03/20 documented as of this encounter
--- OUTSIDE RECORDS SUMMARY | 2024-03-05 21:39 | XMS_ITS | Clinical Summary ---
[facility] Address [address] [place] [address] Care Team Providers Care Associate Director Finance Name Role Phone Andrew Garvey MD Primary Care Provider [phone] Source Comments You are receiving this document [...] for each transition of care or referral. [facility] Allerg[facility] Active Allergy Reactions Criticality Noted Date [...] 50 MG tablet 12/20/2020 Active nystatin (MYCOSTATIN) 392596 UNIT/GM powder 01/05/2021 Act hortencia pregabalin (LYRICA) [...] IIV3 (Trivalent) F luzone Highdose, 65+ Yrs (22908) 11/14/2018,12/09/2017,11/09/2013 Influenza IIV4 (Quadrivalent ) 0.5mL (73354) 11/09/2015 Influenza IIV4 (Quadrivalent ) Fluad, 65+ [...] Sex Assigned at Female 01/02/2021 9:25 PM AMMONIA NITRATE OPERATOR Gender Identity Female 01/02/2021 9:25 PM AMMONIA NITRATE OPERATOR Sexual Orientation Not on file Plan of [...] age to complete this topic Care Teams Associate Director Finance Relationship Specialty Start Date End Date Andrew Garvey MD [address] [place] [address] PCP - General 10/05/99
--- OUTSIDE RECORDS SUMMARY | 2024-03-05 21:39 | XMS_ITS | Referral Summary ---
Author Organization [place] Address [address] [place] [address] Care Team Providers Care Building Engineer Name Role Phone Chele Mena MD Primary Care Provider Birgit Whipple MD Unavailable Dragan Ritter MD Unavailable Birgit Whipple MD Unavailable [phone] Allergies Active Allergy Reactions Criticality Noted Date [...] Ascorbic Acid (VITAMIN C PO) Activ e [place]-3 Fatty Acids (FISH OIL PO) Active Multiple [...] by mouth 03/11/19 18 Active nystatin (MYCOSTATIN) 327847 UNIT/GM external powder APPLY 1 APPLICATION TOPICALLY [...] Administration Dates Next Due Flu, Unspecified 01/25/2018 [id number] Novel Flu 11/17/2009 Hepatitis A (ADULT 19+) [...] Sex Assigned at Female 04/04/2021 11:57 AM LITHOGRAPH PRESS OPERATOR TINWARE Legal Sex Female 4:19 AM LITHOGRAPH PRESS OPERATOR TINWARE Gender Identity Female 04/04/2021 11:57 AM LITHOGRAPH PRESS OPERATOR TINWARE Sexual Orientation Not on file Last Filed [...] Epilepsy Care [address], [address] [place] [address] Birgit Whipple MD [address] [place], [place] [address] Procedures Procedure Name Priority Date/Time Associated Diagnosis Comments BASIC METABOLIC PANEL Routine 04/17/2018 5:47 AM LITHOGRAPH PRESS OPERATOR TINWARE COLONOSCOPY Routine 09/05/2007 9:35 AM CDT from Last 3 Months or Most Recently Relevant to Health Maintenance Results * (ABNORMAL) Basic metabolic panel (04/17/2018 5:47 AM LITHOGRAPH PRESS OPERATOR TINWARE) Sodium 133(L) 136 - 145 mmol/L 04/17/2018 3:26 PM [facility] Potassium 4.7 3.5 - 5.0 mmol/L 04/17/2018 3:26 PM [facility] Chloride 98 98 - 107 mmol/L 04/17/2018 3:26 PM [facility] Carbon Dioxide (CO2) 24 22 - 31 mmol/L 04/17/2018 3:26 PM [facility] Anion Gap 11 5 - 18 mmol/L 04/17/2018 3:26 PM [facility] Glucose 131(H) 70 - 125 mg/dL 04/17/2018 3:26 PM LITHOGRAPH PRESS OPERATOR TINWARE [facility] Calcium 9.5 8.5 - 10.5 mg/dL 04/17/2018 3:26 PM [facility] Urea Nitrogen 12 8 - 28 mg/dL 04/17/2018 3:26 PM [facility] Creatinine 0.69 0.60 - 1.10 mg/dL 04/17/2018 3:26 PM [facility] GFR Estimate If Black >60 >60 mL/min/1.7 3m2 04/17/2018 3:26 PM [facility] GFR Estimate >60 >60 mL/min/1.7 2 04/17/2018 3:26 PM [facility] Blood specimen (specimen) STRUCTURE OF RIGHT UPPER LIMB / Unknown Venipuncture / Unknown 04/17/2018 5:47 AM LITHOGRAPH PRESS OPERATOR TINWARE 04/17/2018 2:22 PM LITHOGRAPH PRESS OPERATOR TINWARE Narrative [facility] - 04/17/2018 3:26 PM LITHOGRAPH PRESS OPERATOR TINWARE Fasting Glucose reference range is 70-99 mg/dL per [place] Diabetes Association (ADA) guidelines. Montserrat Fall MD LAB - BLOOD ORDERABLES Fi nal Result Performing Organization Address [facility]/State/ZIP Co de Phone Number [facility] [address] [address], [facility] [address] [address] * COLONOSCOPY (09/05/2007 9:35 AM CDT) [facility] Signature COLONOSCOPY Endoscopy Patient Name: Kisha [...] oxygen saturations were monitored continuously. The [id number] #[id number] was introduced through the anus and advanced [...] Health Maintenance Insurance MEDICARE MEDICA [employer] Radiate MediaA AquaHydrate MEDICARE [employer] Care Teams Building Engineer Relationship Specialty Start Date End Date Chele Mena MD [facility] [address] [place] [address] PCP - General Internal Medicine 11/28/[address] [facility] [address] [place] [address] Neurology 06/16/[address] [facility] [address] [place] [address] Urology 06/10/17 Birgit Whipple MD [address] [place] [address] Assigned Neuroscience Provider 04/03/20
--- OUTSIDE RECORDS SUMMARY | 2024-03-05 21:39 | XMS_ITS | Encounter Summary ---
Author Organization [place] Address [address] [place] [address] Care Team Providers Care Grades 7 And 8 Visiting Teacher Name Role Phone Chele Mena MD Primary Care Provider Birgit Whipple MD Unavailable [phone] Dragan Ritter MD Unavailable Birgit Whipple MD Unavailable [phone] Encounter Details Date Type Department Care Team (Late st Contact Info) Description 06/08/2021 MyC Medical Advice Physicians [facility] Epilepsy Care [address], [address] [place] [address] Birgit Whipple MD [address] [place], [place] [address] Social History Tobacco Use Types Packs/Day Years Used Date Smoking Tobacco: Never Smokeless Tobacco: Never Alcohol Use Standard Drinks/Week Comments No 0 (1 standard drink = 0.6 oz pur e alcohol) PHQ-2 Answer Date Recorded PHQ-2 Score 0 03/29/2020 Comments No Sex and Gender Information Value Date Recorded Sex Assigned at Female 04/04/2021 11:57 AM COMMISSION SALES ASSOCIATE Legal Sex Female 4:19 AM COMMISSION SALES ASSOCIATE Gender Identity Female 04/04/2021 11:57 AM COMMISSION SALES ASSOCIATE Sexual Orientation Not on file documented as of this encounter Plan of Treatment Upcoming Encounters Date Type Department Care Team (Late st Contact Info) Description 05/21/2024 11:00 AM CDT Office Visit [facility] [address], [address] [place] [address] Birgit Whipple MD [address] [place] [address] documented as of this encounter Visit Diagnoses Not on filedocumented in this encounter Care Teams Grades 7 And 8 Visiting Teacher Relationship Specialty Start Date End Date Chele Mena MD [facility] [address] [place] [address] PCP - General Internal Medicine 11/28/12 Birgit Whipple MD [facility] [address] [place] [address] Neurology 06/16/14 Dragan Ritter MD [facility] [address] [place] [address] Urology 06/10/17 Birgit Whipple MD [address] [place] [address] Assigned Neuroscience Provider 04/03/20 documented as of this encounter
--- OUTSIDE RECORDS SUMMARY | 2024-03-05 21:39 | XMS_ITS | Encounter Summary ---
Author Organization [place] Address [address] [place] [address] Care Team Providers Care It Solutions Architect Name Role Phone Chele Mena MD Primary Care Provider Birgit Whipple MD Unavailable [phone] SoDragan galeas MD Unavailable Birgit Whipple MD Unavailable [phone] Encounter Details Date Type Department Care Team (Latest Contact Info) Description 04/13/2022 External Order Results [facility] [address] [place] [address] Outside, Provider Diabetic polyneuropathy associated with diabetes [...] Sex Assigned at Female 04/04/2021 11:57 AM UTILITY DIVISION PROJECT MANAGER Legal Sex Female 4:19 AM UTILITY DIVISION PROJECT MANAGER Gender Identity Female 04/04/2021 11:57 AM UTILITY DIVISION PROJECT MANAGER Sexual Orientation Not on file documented as of this encounter Plan of Treatment Upcoming Encounters Date Type Department Care Team (Late st Contact Info) Description 05/21/2024 11:00 AM CDT Office Visit [facility] Care [address], [address] [place] [address] Birgit Whipple MD [address] [place] [address] documented as of this encounter Procedures Procedure Name Priority Date/Time Associated Diagnosis Comments PREGABALIN LEVEL Routine 04/13/2022 3:26 PM UTILITY DIVISION PROJECT MANAGER 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 (H) documented in this encounter Results * Pregabalin Level: Random (04/13/2022 3:26 PM UTILITY DIVISION PROJECT MANAGER) PREGABALIN (EXTERNAL) 2.6 ug/mL NON-INTERFACED (ONBASE SCANS) Blood 04/13/2022 3:26 PM UTILITY DIVISION PROJECT MANAGER Narrative ALLISONLAN[facility] PFT - 04/19/2022 10:49 AM UTILITY DIVISION PROJECT MANAGER Verified by Cheryl Soto on 04/19/2022. us Birgit Whipple MD LAB - BLOOD ORDERABLES E dited Result - Final BRELANIE PFT NON-INTERFACED (ONBASE SCANS) documented in this encounter Visit Diagnoses Diagnosis 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 (H) documented in this encounter Care Teams It Solutions Architect Relationship Specialty Start Date End Date Chele Mena MD [facility] [address] [place] [address] PCP - General Internal Medicine 11/28/12 Birgit Whipple MD [facility] [address] [place] [address] Neurology 06/16/14 Dragan Ritter MD [facility] [address] [place] [address] Urology 06/10/17 Birgit Whipple MD [address] [place] [id number] Assigned Neuroscience Provider 04/03/20 documented as of this encounter
[2024-03-05 21:44] LABS: Albumin* 4.1 g/dL (3.3-5.0); Chloride* 91 mmol/L (96-114)
[2024-03-05 21:45] LABS: Potassium* 4.6 mmol/L (3.6-5.1); Slide Review Reflex No
[2024-03-05 21:47] LABS: Creatinine* 0.4 mg/dL (0.5-1.5); Est. Creatinine Clearance* 40.04; Estimated Glomerular Filt Rate 101 ml/min
[2024-03-05] MEDS: 0.9 % SODIUM CHLORIDE 500 ML 500 ML IV (21:47)
[2024-03-05] MEDS: IPRAT-ALBUT 0.5-2.5 MG/3 ML NEB 1 NEB IH (21:47)
[2024-03-05 21:48] LABS: Alanine Aminotransferase* 29 U/L (4-35); Alkaline Phosphatase* 80 U/L (40-150); Anion Gap 10 mEq/L (7-15); Aspartate Amino Transferase* 37 U/L (12-35); Bilirubin Total* 0.8 mg/dL (0.1-1.5); Blood Urea Nitrogen* 16 mg/dL (7-30); Calcium* 9.2 mg/dL (8.4-10.6); Carbon Dioxide* 23 mmol/L (20-32); Glucose* 190 mg/dL (60-115); Total Protein* 7.6 g/dL (6.0-8.3)
[2024-03-05 21:50] LABS: C Reactive Protein* 7.9 mg/dL (0.5-1.0)
[2024-03-05 22:00] LABS: Troponin I* 0.02 ng/mL (0.01-0.04)
[2024-03-05 22:03] LABS: NT Pro B Type NatriureticPept* 718 pg/mL
[2024-03-05 22:04] LABS: Sodium* 124 mmol/L (135-149)
[2024-03-05 22:42] LABS: Lactate Sepsis 2 Hour 2.5 mmol/L (0.5-1.9)
[2024-03-05] MEDS: AZITHROMYCIN 500 MG in 0.9 % SODIUM CHLORIDE 250 ml 250 ML 255 MG IVPB (22:42)
[2024-03-05] MEDS: cefTRIAXone 1 GM in 0.9 % SODIUM CHLORIDE Mini-bag 100 ML IVPB (22:42)
--- NOTE | 2024-03-05 22:56 | PM.IMHP1 ---
Hospitalist- H&P: HPI History of Present Illness Date Seen: 03/05/24 Chief complaint: Fever, lethargy Narrative: Kisha Gandara is a 78 year old female with past medical history of hypertension, hyperlipidemia, diabetes, morbid obesity, epilepsy, GERD and peripheral neuropathy who presents to the ED complaining of cough and weakness that started few days ago. Patient denies fevers, chest pain but reports shortness of breath. Cough w/ yellowish sputum. is also sick at home. Patient also denies cardiac or pulmonary issues. No frequent pneumonias. At the ED, patient was tachycardic EKG showed sinus tachycardia and a normal troponin. Patient has mild WBC elevation at 11.4, lactate was elevated at 3.1 and CRP elevated at about 7.9. Labs were also significant for hyponatremia with sodium of 124. Chest x-ray showed bilateral but she lower lobe interstitial/airspace disease. ProBNP was in the 700s. Review of Systems Status of ROS: Reports: 6 or more systems reviewed and unremarkable except as noted in History and below PFSH [facility] Medical History Breast cancer ?C50.919 - Malignant neoplasm of unspecified site of unspecified female breast (ICD-10) History of malignant neoplasm of breast ?Z85.3 - Personal history of malignant neoplasm of breast (ICD-10) History of ischemic colitis (2017) ?Z87.19 - Personal history of other diseases of the digestive system (ICD-10) Encounter for screening for COVID-19 ?Z11.52 - Encounter for screening for COVID-19 (ICD-10) Surgical History Status post total right knee replacement ?Z96.651 - Presence of right artificial knee joint (ICD-10) Status post total knee replacement ?Z96.659 - Presence of unspecified artificial knee joint (ICD-10) History of bilateral mastectomy ?Z90.13 - Acquired absence of bilateral breasts and nipples (ICD-10) Social History What is your current living situation?: I presently have a place to live Problems where you live: no known problems In the past 12 months, utilities in danger of being shut off: no In past 12 months, lack of transportation kept you from medical appts, meetings, work, or getting things needed for daily living: no In the past 12 mos, have been you worried that your food would run out before you had money to buy more?: never true In the past 12 mos, the food you bought just didn't last and you didn't have money to buy more?: never true Smoking Status: Never smoker How often does anyone, including family, friends and others, physically hurt you: never How often does anyone, including family, friends and others, insult or talk down to you: never How often does anyone, including family, friends and others, threaten you with harm: never How often does anyone, including family, friends and others, scream or curse at you: never service: No Meds Home Medications and Allergies Home Medications ?Medication ?Instructions ?Recorded ?Confirmed ?Type acetaminophen 500 mg tablet 500 mg PO .prn PRN 11/02/21 07/31/23 History aspirin 81 mg tablet,delayed 81 mg PO DAILY 11/02/21 07/31/23 History release cholecalciferol (vitamin D3) 25 25 mcg PO DAILY 11/02/21 07/31/23 History mcg (1,000 unit) capsule multivitamin with minerals 1 tab PO QDAY 11/02/21 07/31/23 History omega 5-uoc-ufc-fish oil 100 1 cap PO DAILY 11/02/21 07/31/23 History mg-160 mg-1,000 mg capsule (Fish Oil) pregabalin 100 mg capsule 100 mg PO .Am 11/02/21 07/31/23 History pregabalin 50 mg capsule 50 mg PO .6 Pm, 10PM 11/02/21 07/31/23 History divalproex 250 mg tablet,extended mg PO 12/21/22 07/31/23 History release 24 hr primidone 250 mg tablet 250 mg PO DAILY 12/21/22 07/31/23 History Allergies Allergy/AdvReac Type Severity Reaction Status Date / Time oxcarbazepine Allergy Severe Rash Verified 03/05/24 20:40 lacosamide Allergy Intermediate hallucinati Verified 03/05/24 20:40 ons Bee venom Allergy Unknown Uncoded 11/12/24 09:47 Exam Narrative: Exam Narrative: Physical exam GENERAL: Obese, coughing HEAD AND NECK: Atraumatic, normocephalic, congested CARDIOVASCULAR: reg tachy. Normal S1, S2. No murmurs. RESPIRATORY: Clear to auscultation B/L. Good air entry B/L. No wheezes or rhonchi. GASTROINTESTINAL: Not distended, not tender to palpation. NEUROLOGY: Alert, awake, oriented X 3. Normal speech. PSYCH: Normal mood, normal affect. Const: Vital Signs, click to edit/add: Vital Signs - 24 hr 03/05/24 20:38 03/05/24 20:58 Temperature 98.5 F Pulse Rate [Right Pulse Oximeter] 144 H Respiratory Rate 20 Blood Pressure [Le ft Upper Arm] 151/82 H Pulse Oximetry 94 94 Oxygen Delivery Me thod Room Air Hospitalist - H&P: Result Labs Labs: Short CBC 03/05/24 Range/Units 21:20 WBC 11.22 H (4.50-11.00) K/uL Hgb 13.9 (12.0-16.0) gm/dL Hct 40.6 (33.0-51.0) % Plt Count 173 (140-440) K/uL BMP 03/05/24 21:20 Sodium 124 L* Potassium 4.6 Chloride 91 L Carbon Dioxide 23 BUN 16 Creatinine 0.4 L Glucose 190 H Calcium 9.2 Cardiac Enzymes 03/05/24 Range/Units 21:20 Troponin I 0.02 (0.01-0.04) ng/mL Liver Function 03/05/24 Range/Units 21:20 Total Bilirubin 0.8 (0.1-1.5) mg/dL AST 37 H (12-35) U/L ALT 29 (4-35) U/L Alkaline Phosphatase 80 (40-150) U/L Albumin 4.1 (3.3-5.0) g/dL ECG Attestation: I personally reviewed and interpreted this ECG as follows: ECG interpretation date: 03/05/24 Interpretation: EKG from the ED shows P-waves and multiple leads, regular Imaging Chest x-ray: Attestation: I have reviewed the pertinent imaging results. Radiologist's impression: TECHNIQUE: Chest 2 views. COMPARISON: April 02, 2018. FINDINGS: Cardiovascular and mediastinum: Stable heart size and vasculature. Lungs and pleural spaces: Low lung volumes with patchy lower lobe interstitial/airspace disease. No sign of infiltrate or mass. No sign of pleural effusion. No pneumothorax. Bones and soft tissues: No significant findings. IMPRESSION: Low lung volumes with patchy lower lobe interstitial/airspace disease, possibly pulmonary edema or infection in the appropriate clinical setting. Dictated by Justo Thomas MD @ 03/05/2024 9:20:41 PM Assessment and Plan Assessment and plan (1) Sepsis: Problem comment: -At the ED, patient was tachycardic EKG showed sinus tachycardia and a normal troponin. Patient has mild WBC elevation at 11.4, lactate was elevated at 3.1 and CRP elevated at about 7.9. -Treat sepsis, elevated lactic acid, Treat CAP IV Abx + IVF -trend lactate, follow-up blood & sputum cultures Status: Acute (2) Community acquired pneumonia: Problem comment: - above -started ceftriaxone and azithromycin -follow-up blood cultures -ordered urine strep pneumonia and Legionella antigens Status: Acute (3) Elevated lactic acid level: Problem comment: lactate was elevated at 3.1 Trend lactate Status: Acute (4) Tachycardia: Problem comment: EKG from the ED shows P-waves and multiple leads, regular, likely secondary to sepsis Repeat EKG to rule out AFib Ordered cardiac monitoring Normal troponins may consider echo if 2nd EKG shows abnormal rhythm. Status: Acute (5) Acute hyponatremia: Problem comment: -Labs were also significant for hyponatremia with sodium of 124. Chest x-ray showed bilateral but she lower lobe interstitial/airspace disease. -hyponatremia likely secondary to pneumonia, will treat pneumonia and monitor sodium levels. A total of 1.5 L of IV fluids was given at the ED. Status: Acute (6) Type 2 diabetes mellitus: Problem comment: -ordered insulin glargine 10 units q.h.s. -ordered low-dose insulin sliding scale -last hemoglobin A1c was 6.4 Status: Acute (7) Seizure disorder: Problem comment: Patient does not know her home meds, but she took them today morning Will need medication reconciliation with pharmacy help and then resume anti seizure medication Patient states that she has controlled her last seizure was long time ago (years) Status: Acute (8) Peripheral neuropathy: Problem comment: Resume home meds Status: Acute (9) Transaminitis: Problem comment: -mild elevation, chronic as patient had transaminitis couple of years ago -likely secondary to SILVA but patient will need outpatient liver workup Status: Acute (10) Hyperlipidemia: Problem comment: Resume home meds Status: Acute (11) Hypertension: Problem comment: Resume home meds Status: Acute (12) Morbid obesity: Status: Acute (13) Gastroesophageal reflux disease: Status: Acute Total Time Spent Total Time Spent: Time spent: Today I spent 75 minutes seeing the patient, discussing the patient with ER staff, reviewing Expanse and EPIC notes/diagnostics, discussing the care plan with our care time that includes social work, PT/OT, pharmacy, RT, mcfp and documenting my impressions and plan in the medical record.
[2024-03-05 23:20] VITALS: BP 125/97; PULSE 130; RESP 24; TEMP 37.1; O2SAT 93
[2024-03-05 23:36] VITALS: BP 125/97; PULSE 130; RESP 24; TEMP 37.1; O2SAT 93; BMI 50.3
[2024-03-05] MEDS: 0.9 % SODIUM CHLORIDE 1000 ml 1,000 ML 500 ML IV (23:42)
[2024-03-05 23:46] LABS: Appearance Urine Clear (Clear); Bilirubin Urine Negative (Negative); Blood Urine Negative (Negative); Color Urine Yellow (Yellow); Glucose Urine Negative (Negative); Ketones Urine Negative (Negative); Leukocyte Esterase Urine Negative (Negative); Nitrite Urine Negative (Negative); Protein Urine Negative (Negative); Specific Gravity Urine 1.015 (1.000-1.030); Urobilinogen Urine 0.2 (0.2-1.0); pH Urine 6.5 (5.0-8.5)
[2024-03-05 23:55] LABS: Bacteria Urine Moderate; RBC Urine 0-2 (0-2); Squamous Epithelial Cell Urine Few (None-Few); WBC Urine 0-2 (0-5)
[2024-03-06] VITALS (107 sets, daily range): BP systolic 85–146; BP diastolic 32–109; PULSE 85–144; RESP 18–116; TEMP 35.6–37.3; O2SAT 86–98
[2024-03-06 00:07] LABS: Legionella pneumo Ag Urine L. pneumo Negative (Negative); S pneumo Ag Urine S. pneumo Negative (Negative)
[2024-03-06] MEDS: PREGABALIN 50 MG CAPSULE PO ×2 (01:07→18:08)
[2024-03-06] MEDS: DIVALPROEX SODIUM ER TAB 250 MG PO (01:09)
[2024-03-06] MEDS: INSULIN GLARGINE,HUM.REC.ANLOG 100 UNIT/ML INSULN.PEN 10 UNIT SUBCUT ×2 (01:11→22:12)
[2024-03-06] MEDS: METOPROLOL TARTRATE 1 MG/ML inj 5 MG IVP (01:18)
[2024-03-06] MEDS: 0.9 % SODIUM CHLORIDE 1000 ml 1,000 ML 100 ML IV (01:46)
[2024-03-06] MEDS: METOPROLOL TARTRATE 1 MG/ML inj 2.5 MG IVP (03:05)
--- NOTE | 2024-03-06 04:45 | P.IMCN_ITS ---
Date of Consult Consult date: 03/06/24 Primary Care Provider: Chele Mena MD Consult Narrative Narrative: Kisha Gandara is a 78 year old female [facility] Medical History Breast cancer ?C50.919 - Malignant neoplasm of unspecified site of unspecified female breast (ICD-10) History of malignant neoplasm of breast ?Z85.3 - Personal history of malignant neoplasm of breast (ICD-10) History of ischemic colitis (2017) ?Z87.19 - Personal history of other diseases of the digestive system (ICD-10) Encounter for screening for COVID-19 ?Z11.52 - Encounter for screening for COVID-19 (ICD-10) Surgical History Status post total right knee replacement ?Z96.651 - Presence of right artificial knee joint (ICD-10) Status post total knee replacement ?Z96.659 - Presence of unspecified artificial knee joint (ICD-10) History of bilateral mastectomy ?Z90.13 - Acquired absence of bilateral breasts and nipples (ICD-10) Social History What is your current living situation?: I presently have a place to live Problems where you live: pests, such as bugs, ants, or mice, mold, lead paint or pipes, lack of heat, oven or stove not working, smoke detectors missing or not working, carbon monoxide detectors missing or not working, water leaks, unsafe kalpana/stairs, inadequate lighting and no known problems Problems where you live details: na In the past 12 months, utilities in danger of being shut off: no In past 12 months, lack of transportation kept you from medical appts, meetings, work, or getting things needed for daily living: no In the past 12 mos, have been you worried that your food would run out before you had money to buy more?: never true In the past 12 mos, the food you bought just didn't last and you didn't have money to buy more?: never true Highest level of school completed/degree received: Bachelor's degree Smoking Status: Never smoker How often do you have a drink containing alcohol: never AUDIT-C Alcohol total score: 0 Non-prescribed substance use: denies use How often does anyone, including family, friends and others, physically hurt you : never How often does anyone, including family, friends and others, insult or talk down to you: never How often does anyone, including family, friends and others, threaten you with harm: never How often does anyone, including family, friends and others, scream or curse at you: never service: No Health Related Social Needs: Inadequate housing (Z59.1) Meds Home Medications and Allergies Home Medications ?Medication ?Instructions ?Recorded ?Confirmed ?Type acetaminophen 500 mg tablet 500 mg PO .prn PRN 11/02/21 07/31/23 History aspirin 81 mg tablet,delayed 81 mg PO DAILY 11/02/21 07/31/23 History release cholecalciferol (vitamin D3) 25 25 mcg PO DAILY 11/02/21 07/31/23 History mcg (1,000 unit) capsule multivitamin with minerals 1 tab PO QDAY 11/02/21 07/31/23 History omega 7-bzb-jve-fish oil 100 1 cap PO DAILY 11/02/21 07/31/23 History mg-160 mg-1,000 mg capsule (Fish Oil) pregabalin 100 mg capsule 100 mg PO .Am 11/02/21 07/31/23 History pregabalin 50 mg capsule 50 mg PO .6 Pm, 10PM 11/02/21 07/31/23 History divalproex 250 mg tablet,extended mg PO 12/21/22 07/31/23 History release 24 hr primidone 250 mg tablet 250 mg PO DAILY 12/21/22 07/31/23 History Allergies Allergy/AdvReac Type Severity Reaction Status Date / Time oxcarbazepine Allergy Severe Rash Verified 03/05/24 20:40 lacosamide Allergy Intermediate hallucinati Verified 03/05/24 20:40 ons Bee venom Allergy Unknown Uncoded 01/07/24 09:47 Exam Const: Vital Signs, click to edit/add: Vital Signs - 24 hr 03/05/24 20:38 03/05/24 20:58 03/05/24 23:20 Temperature 98.5 F 98.7 F Pulse Rate Pulse Rate [Pulse Oximeter] Pulse Rate [Right Pulse Oximeter] 144 H Pulse Rate [Right Radial] 130 H Respiratory Rate 20 24 Blood Pressure [Le ft Arm] 125/97 H Blood Pressure [Le ft Upper Arm] 151/82 H Pulse Oximetry 94 94 93 Oxygen Delivery Me thod Room Air Room Air Oxygen Flow Rate 03/05/24 23:30 03/05/24 23:36 03/06/24 03:00 Temperature 98.7 F 98.0 F Pulse Rate Pulse Rate [Pulse Oximeter] 138 H Pulse Rate [Right Pulse Oximeter] Pulse Rate [Right Radial] 130 H Respiratory Rate 24 20 Blood Pressure [Le ft Arm] 125/97 H 141/109 H Blood Pressure [Le ft Upper Arm] Pulse Oximetry 93 96 Oxygen Delivery Me thod Room Air Room Air Nasal Cannula Oxygen Flow Rate 2 03/06/24 03:00 03/06/24 04:05 03/06/24 04:10 Temperature Pulse Rate 129 H Pulse Rate [Pulse Oximeter] Pulse Rate [Right Pulse Oximeter] Pulse Rate [Right Radial] 144 H Respiratory Rate Blood Pressure [Le ft Arm] 123/71 123/71 Blood Pressure [Le ft Upper Arm] Pulse Oximetry Oxygen Delivery Me thod Oxygen Flow Rate Labs Labs: Short CBC 03/05/24 Range/Units 21:20 WBC 11.22 H (4.50-11.00) K/uL Hgb 13.9 (12.0-16.0) gm/dL Hct 40.6 (33.0-51.0) % Plt Count 173 (140-440) K/uL BMP 03/05/24 21:20 Sodium 124 L* Potassium 4.6 Chloride 91 L Carbon Dioxide 23 BUN 16 Creatinine 0.4 L Glucose 190 H Calcium 9.2 Cardiac Enzymes 03/05/24 Range/Units 21:20 Troponin I 0.02 (0.01-0.04) ng/mL Liver Function 03/05/24 Range/Units 21:20 Total Bilirubin 0.8 (0.1-1.5) mg/dL AST 37 H (12-35) U/L ALT 29 (4-35) U/L Alkaline Phosphatase 80 (40-150) U/L Albumin 4.1 (3.3-5.0) g/dL Urine 03/05/24 Range/Units 23:27 Urine Color Yellow (Yellow) Urine Appearance Clear (Clear) Urine pH 6.5 (5.0-8.5) Ur Specific [place] 1.015 (1.000-1.030) Urine Protein Negative (Negative) Urine Glucose (UA) Negative (Negative) Assessment and Plan Assessment and plan (1) Tachycardia: Problem comment: EKG from the ED shows P-waves and multiple leads, regular, likely secondary to sepsis Repeat EKG to rule out AFib Ordered cardiac monitoring Normal troponins may consider echo if 2nd EKG shows abnormal rhythm. Status: Acute (2) Weakness: Status: Acute (3) Community acquired pneumonia: Problem comment: - above -started ceftriaxone and azithromycin -follow-up blood cultures -ordered urine strep pneumonia and Legionella antigens Status: Acute Plan I was contacted about 70-year-old female with atrial fibrillation with rapid ventricular rate. Patient is admitted to the hospital secondary to pneumonia, hyponatremia and sepsis-like picture. She is on IV fluids, IV antibiotics. She has a past medical history significant for morbid obesity with a BMI greater than 50. She is also on metoprolol. Blood pressures are stable Despite multiple doses of Lopressor IV, her heart rate remained above 130. She was relatively asymptomatic. She was on a few liters of oxygen. I was contacted by nursing staff to address the heart rate. Unfortunately we are unable to provide her a diltiazem infusion due to staffing issues. Therefore I have started her on 10 mg IV push every 2 hours as needed for heart rate greater than 120.
[2024-03-06] MEDS: dilTIAZem 5 MG/ML inj 10 MG IVP (05:44)
[2024-03-06 06:31] LABS: Hemoglobin* 12.9 gm/dL (12.0-16.0); Mean Corpuscular HGB Conc 34 gm/dL (32-36); Mean Corpuscular Hemoglobin 32 pg (26-34); Mean Corpuscular Volume 95 fL (80-100); Platelet Count* 192 K/uL (140-440); White Blood Count* 11.57 K/uL (4.50-11.00)
[2024-03-06 06:32] LABS: Lactate* 3.1 mmol/L (0.5-1.9)
[2024-03-06 06:34] LABS: Slide Review Reflex No
[2024-03-06 06:51] LABS: Albumin* 3.5 g/dL (3.3-5.0); Chloride* 95 mmol/L (96-114)
[2024-03-06 06:52] LABS: Potassium* 4.6 mmol/L (3.6-5.1); Sodium* 126 mmol/L (135-149)
[2024-03-06 06:54] LABS: Alkaline Phosphatase* 77 U/L (40-150); Anion Gap 8 mEq/L (7-15); Aspartate Amino Transferase* 30 U/L (12-35); Bilirubin Total* 0.6 mg/dL (0.1-1.5); Blood Urea Nitrogen* 12 mg/dL (7-30); Carbon Dioxide* 23 mmol/L (20-32); Creatinine* 0.4 mg/dL (0.5-1.5); Est. Creatinine Clearance* 40.04; Estimated Glomerular Filt Rate 101 ml/min; Glucose* 148 mg/dL (60-115); Total Protein* 6.7 g/dL (6.0-8.3)
[2024-03-06 06:55] LABS: Alanine Aminotransferase* 26 U/L (4-35); Calcium* 8.6 mg/dL (8.4-10.6); Magnesium* 1.5 mg/dL (1.5-2.6)
[2024-03-06 07:42] LABS: Troponin I* 0.03 ng/mL (0.01-0.04)
[2024-03-06] MEDS: dilTIAZem HCL 125 MG in 0.9 % SODIUM CHLORIDE 100 ml 100 ML IVPB (08:04)
--- NOTE | 2024-03-06 08:18 | PC.NURSE ---
Shift note ([id number]): Patient arrived from ED at 2306. Pleasant, alert and oriented. Pivot transferred to bedside commode with walker, gait belt and heavy assist of two. Denied pain or discomfort. O2 sats within normal limits. HR elevated between 120-150 during night. MD called and updated. New orders for IVP Metoprolol and IVP Diltiazem given.
--- NOTE | 2024-03-06 08:56 | REH.OT ---
OT and PT orders received. Will hold on therapy due to current medical status. Will try to evaluate when medically appropriate.
[2024-03-06] MEDS: DIVALPROEX SODIUM ER TAB 250 MG 750 MG PO ×2 (09:15→21:51)
[2024-03-06] MEDS: BENZONATATE 100 MG CAPSULE 200 MG PO ×3 (09:15→21:50)
[2024-03-06] MEDS: METOPROLOL TARTRATE 50 MG TABLET PO ×2 (09:15→21:51)
[2024-03-06] MEDS: PRIMIDONE 50 MG TABLET 250 MG PO (09:15)
[2024-03-06] MEDS: PREGABALIN 100 MG CAPSULE PO (09:15)
[2024-03-06] MEDS: ASPIRIN 81 MG TAB.CHEW PO (09:15)
[2024-03-06] MEDS: ENOXAPARIN 40 MG/0.4 ML INJ 60 MG SUBCUT (09:16)
[2024-03-06] MEDS: SODIUM CHLORIDE 0.9 % (FLUSH) 10 ML SYRINGE 5 ML IVF ×2 (09:16→21:52)
--- NOTE | 2024-03-06 09:17 | NUTR.NU ---
RDN with nutrition screen related to positive skin risk and diet education related to current diet order. Not appropriate ti visit today given current medical status. RDN will continue to monitor and follow-up when appropriate.
[2024-03-06] MEDS: PERFLUTREN LIPID MICROSPHERES 2 ML VIAL IVP (11:42)
[2024-03-06] MEDS: DIGOXIN 250 MCG TABLET 500 MCG PO (11:55)
[2024-03-06] MEDS: 0.9 % SODIUM CHLORIDE 1000 ml 1,000 ML 250 ML IV (12:14)
[2024-03-06 12:24] LABS: Sodium* 126 mmol/L (135-149)
[2024-03-06] MEDS: dilTIAZem 240 MG CAP (CD) PO (12:34)
--- NOTE | 2024-03-06 15:45 | P.IMPN_ITS ---
Progress Note: A&P Assessment and plan (1) Sepsis: Problem details: -At the ED, patient was tachycardic EKG showed sinus tachycardia and a normal troponin. Patient has mild WBC elevation at 11.4, lactate was elevated at 3.1 and CRP elevated at about 7.9. -Treat sepsis, elevated lactic acid, Treat CAP IV Abx + IVF -trend lactate, follow-up blood & sputum cultures Status: Acute (2) Community acquired pneumonia: Problem details: - above -started ceftriaxone and azithromycin -follow-up blood cultures -ordered urine strep pneumonia and Legionella antigens Status: Acute (3) Tachycardia: Problem details: EKG from the ED shows P-waves and multiple leads, regular, likely secondary to sepsis Repeat EKG to rule out AFib Ordered cardiac monitoring Normal troponins Echocardiogram demonstrates normal LV size with moderately increased LV wall thickness and normal EF of 60-65%. Normal RV chamber size and function. Severely enlarged left atrium. Inferior vena cava consistent with elevated right atrial pressure. Status: Acute (4) Atrial fibrillation with rapid ventricular response: Problem details: -unable to achieve rate control with IV metoprolol and IV diltiazem boluses. -transferred to CCU status. -initiated IV diltiazem drip. Added oral diltiazem. -serial EKGs, trop I. -initiate anticoagulation with apixaban 5 mg p.o. b.i.d. Status: Acute (5) Acute respiratory failure with hypoxia: Problem details: -continue with low-flow oxygen support as needed Status: Acute (6) Elevated lactic acid level: Problem details: lactate was elevated at 3.1 Trend lactate Status: Acute (7) Transaminitis: Problem details: -mild elevation, chronic as patient had transaminitis couple of years ago -likely secondary to SILVA but patient will need outpatient liver workup Status: Acute (8) Type 2 diabetes mellitus: Problem details: -ordered insulin glargine 10 units q.h.s. -ordered low-dose insulin sliding scale -last hemoglobin A1c was 6.4 Status: Acute (9) Seizure disorder: Problem details: Patient does not know her home meds, but she took them today morning Will need medication reconciliation with pharmacy help and then resume anti seizure medication Patient states that she has controlled her last seizure was long time ago (years) Status: Acute (10) Morbid obesity: Problem details: -were some risk factor for obesity associated hypoventilation syndrome -venous blood gas monitoring Status: Acute (11) Acute hyponatremia: Problem details: -Labs were also significant for hyponatremia with sodium of 124. Chest x-ray showed bilateral but she lower lobe interstitial/airspace disease. -hyponatremia likely secondary to pneumonia, will treat pneumonia and monitor sodium levels. A total of 1.5 L of IV fluids was given at the ED. Status: Acute Plan 1. Reviewed impression with patient and 2. Patient expresses desire for full resuscitation in event of cardiopulmonary demise 3. supports 's choices 4. Continue with supportive efforts as specified above Time Spent With Patient Total time spent: 60 minutes Subjective Date Seen: 03/06/24 Interval history: Hospital day 2. Patient and informed me how they had grandchildren and children visiting and how they were ill. Both and the patient became ill after their family members left the home. Patient's condition has worsened over the last few days and thus she presents to the emergency department yesterday for further assessment and admission. She denies chest heaviness, pressure, tightness, or pain at this time. Denies dyspnea at rest but acknowledges dyspnea with minimal exertion. Denies palpitations or chest fluttering. Ongoing generalized weakness. Decreased appetite Exam Narrative: Exam Narrative: Examined patient in her hospital room. Appears ill. When I 1st assess her in the morning she is very difficult to arouse. Reportedly she was awake much of the night. When awakened she is alert and oriented to self, place, time, situation. Decreased breath sounds with bibasilar end inspiratory rales. Scattered rhonchi. No wheezing. Heart tones are chaotic with normal S1-S2. Abdomen is obese with active bowel sounds, soft, nontender. Extremities with no apparent edema. Skin is warm, dry, intact. Const: Vital Signs, click to edit/add: Vital Signs - 24 hr 03/05/24 20:38 03/05/24 20:58 03/05/24 23:20 Temperature 98.5 F 98.7 F Pulse Rate Pulse Rate [Pulse Oximeter] Pulse Rate [Right Pulse Oximeter] 144 H Pulse Rate [Right Radial] 130 H Respiratory Rate 20 24 Blood Pressure Blood Pressure [Le ft Arm] 125/97 H Blood Pressure [Le ft Upper Arm] 151/82 H Pulse Oximetry 94 94 93 Oxygen Delivery Me thod Room Air Room Air Oxygen Flow Rate 03/05/24 23:30 03/05/24 23:36 03/06/24 03:00 Temperature 98.7 F 98.0 F Pulse Rate Pulse Rate [Pulse Oximeter] 138 H Pulse Rate [Right Pulse Oximeter] Pulse Rate [Right Radial] 130 H Respiratory Rate 24 20 Blood Pressure Blood Pressure [Le ft Arm] 125/97 H 141/109 H Blood Pressure [Le ft Upper Arm] Pulse Oximetry 93 96 Oxygen Delivery Me thod Room Air Room Air Nasal Cannula Oxygen Flow Rate 2 03/06/24 04:05 03/06/24 04:10 03/06/24 05:15 Temperature Pulse Rate 131 H Pulse Rate [Pulse Oximeter] 144 H Pulse Rate [Right Pulse Oximeter] Pulse Rate [Right Radial] Respiratory Rate Blood Pressure Blood Pressure [Le ft Arm] 123/71 123/71 Blood Pressure [Le ft Upper Arm] Pulse Oximetry Oxygen Delivery Me thod Oxygen Flow Rate 03/06/24 05:50 03/06/24 05:52 03/06/24 05:55 Temperature Pulse Rate Pulse Rate [Pulse Oximeter] Pulse Rate [Right Pulse Oximeter] Pulse Rate [Right Radial] Respiratory Rate Blood Pressure Blood Pressure [Le ft Arm] 129/84 132/66 122/70 Blood Pressure [Le ft Upper Arm] Pulse Oximetry Oxygen Delivery Me thod Oxygen Flow Rate 03/06/24 07:13 03/06/24 07:13 03/06/24 07:31 Temperature 97.1 F L Pulse Rate 138 H Pulse Rate [Pulse Oximeter] 124 H 141 H Pulse Rate [Right Pulse Oximeter] Pulse Rate [Right Radial] Respiratory Rate 20 Blood Pressure Blood Pressure [Le ft Arm] 135/81 Blood Pressure [Le ft Upper Arm] Pulse Oximetry 95 Oxygen Delivery Me thod Nasal Cannula Oxygen Flow Rate 2 03/06/24 08:20 03/06/24 08:31 03/06/24 08:43 Temperature Pulse Rate Pulse Rate [Pulse Oximeter] 107 H 124 H Pulse Rate [Right Pulse Oximeter] Pulse Rate [Right Radial] Respiratory Rate 20 Blood Pressure Blood Pressure [Le ft Arm] 108/77 96/68 Blood Pressure [Le ft Upper Arm] Pulse Oximetry 95 95 Oxygen Delivery Me thod Nasal Cannula Nasal Cannula Oxygen Flow Rate 2 03/06/24 08:45 03/06/24 09:00 03/06/24 09:15 Temperature Pulse Rate Pulse Rate [Pulse Oximeter] 133 H 119 H Pulse Rate [Right Pulse Oximeter] Pulse Rate [Right Radial] 121 H Respiratory Rate Blood Pressure Blood Pressure [Le ft Arm] 109/84 123/97 H 108/59 L Blood Pressure [Le ft Upper Arm] Pulse Oximetry 95 Oxygen Delivery Me thod Nasal Cannula Oxygen Flow Rate 2 03/06/24 09:30 03/06/24 09:45 03/06/24 10:01 Temperature Pulse Rate 124 H Pulse Rate [Pulse Oximeter] 116 H 128 H Pulse Rate [Right Pulse Oximeter] Pulse Rate [Right Radial] Respiratory Rate 20 Blood Pressure 95/70 Blood Pressure [Le ft Arm] 114/98 H 114/93 H Blood Pressure [Le ft Upper Arm] Pulse Oximetry 97 95 96 Oxygen Delivery Me thod Nasal Cannula Nasal Cannula Nasal Cannula Oxygen Flow Rate 2 2 2 03/06/24 10:15 03/06/24 10:30 03/06/24 10:45 Temperature 96.9 F L Pulse Rate 116 H 120 H 118 H Pulse Rate [Pulse Oximeter] Pulse Rate [Right Pulse Oximeter] Pulse Rate [Right Radial] Respiratory Rate 22 Blood Pressure 115/78 100/63 141/84 H Blood Pressure [Le ft Arm] Blood Pressure [Le ft Upper Arm] Pulse Oximetry 96 Oxygen Delivery Me thod Nasal Cannula Nasal Cannula Oxygen Flow Rate 2 2 03/06/24 10:54 03/06/24 11:00 03/06/24 11:13 Temperature Pulse Rate 112 H 118 H Pulse Rate [Pulse Oximeter] 116 H Pulse Rate [Right Pulse Oximeter] Pulse Rate [Right Radial] Respiratory Rate 22 Blood Pressure 104/58 L Blood Pressure [Le ft Arm] Blood Pressure [Le ft Upper Arm] Pulse Oximetry Oxygen Delivery Me thod Oxygen Flow Rate 03/06/24 11:15 03/06/24 11:30 03/06/24 11:45 Temperature Pulse Rate 118 H Pulse Rate [Pulse Oximeter] Pulse Rate [Right Pulse Oximeter] Pulse Rate [Right Radial] Respiratory Rate 116 H Blood Pressure 104/58 L 92/46 L 103/73 Blood Pressure [Le ft Arm] Blood Pressure [Le ft Upper Arm] Pulse Oximetry Oxygen Delivery Me thod Oxygen Flow Rate 03/06/24 11:55 03/06/24 12:00 03/06/24 12:11 Temperature 97.6 F Pulse Rate 120 H 112 H Pulse Rate [Pulse Oximeter] Pulse Rate [Right Pulse Oximeter] Pulse Rate [Right Radial] Respiratory Rate Blood Pressure 98/69 98/69 Blood Pressure [Le ft Arm] Blood Pressure [Le ft Upper Arm] Pulse Oximetry Oxygen Delivery Me thod Oxygen Flow Rate 03/06/24 12:15 03/06/24 12:30 03/06/24 12:35 Temperature Pulse Rate 112 H 103 H 111 H Pulse Rate [Pulse Oximeter] Pulse Rate [Right Pulse Oximeter] Pulse Rate [Right Radial] Respiratory Rate Blood Pressure 91/67 91/67 101/86 Blood Pressure [Le ft Arm] Blood Pressure [Le ft Upper Arm] Pulse Oximetry Oxygen Delivery Me thod Oxygen Flow Rate 03/06/24 12:45 03/06/24 13:00 03/06/24 13:15 Temperature Pulse Rate 118 H 112 H 122 H Pulse Rate [Pulse Oximeter] Pulse Rate [Right Pulse Oximeter] Pulse Rate [Right Radial] Respiratory Rate Blood Pressure 124/77 104/63 113/78 Blood Pressure [Le ft Arm] Blood Pressure [Le ft Upper Arm] Pulse Oximetry Oxygen Delivery Me thod Oxygen Flow Rate 03/06/24 13:29 03/06/24 13:45 03/06/24 14:30 Temperature 97.8 F Pulse Rate 120 H 119 H 120 H Pulse Rate [Pulse Oximeter] Pulse Rate [Right Pulse Oximeter] Pulse Rate [Right Radial] Respiratory Rate 22 Blood Pressure 123/61 116/71 114/77 Blood Pressure [Le ft Arm] Blood Pressure [Le ft Upper Arm] Pulse Oximetry 94 Oxygen Delivery Me thod Nasal Cannula Oxygen Flow Rate 2 03/06/24 14:45 03/06/24 14:47 03/06/24 15:00 Temperature 98.0 F Pulse Rate 121 H 122 H Pulse Rate [Pulse Oximeter] Pulse Rate [Right Pulse Oximeter] Pulse Rate [Right Radial] Respiratory Rate 20 20 Blood Pressure 131/82 102/74 Blood Pressure [Le ft Arm] Blood Pressure [Le ft Upper Arm] Pulse Oximetry 94 94 Oxygen Delivery Me thod Nasal Cannula Nasal Cannula Oxygen Flow Rate 2 2 03/06/24 15:18 03/06/24 15:19 03/06/24 15:30 Temperature Pulse Rate 112 H 125 H 115 H Pulse Rate [Pulse Oximeter] Pulse Rate [Right Pulse Oximeter] Pulse Rate [Right Radial] Respiratory Rate Blood Pressure 85/61 L Blood Pressure [Le ft Arm] Blood Pressure [Le ft Upper Arm] Pulse Oximetry 96 96 97 Oxygen Delivery Me thod Oxygen Flow Rate 03/06/24 15:32 Temperature Pulse Rate 132 H Pulse Rate [Pulse Oximeter] Pulse Rate [Right Pulse Oximeter] Pulse Rate [Right Radial] Respiratory Rate Blood Pressure 118/74 Blood Pressure [Le ft Arm] Blood Pressure [Le ft Upper Arm] Pulse Oximetry 97 Oxygen Delivery Me thod Oxygen Flow Rate Labs Labs: Laboratory Results - last 24 hr 03/05/24 03/05/24 03/05/24 20:32 20:58 21:20 WBC 11.22 H RBC 4.29 Hgb 13.9 Hct 40.6 MCV 95 MCH 32 MCHC 34 RDW Coeff of Valerie 13.0 Plt Count 173 Neut % (Auto) 51.5 Lymph % (Auto) 29.0 Alexander % (Auto) 16.9 H Eos % (Auto) 1.7 Baso % (Auto) 0.4 Neut # (Auto) 5.80 Lymph # (Auto) 3.30 H Alexander # (Auto) 1.90 H Eos # (Auto) 0.20 Baso # (Auto) 0.00 Abs Immat Gran (auto) 0.10 Imm/Tot Granulo (auto) 0.5 Sodium 124 L* Potassium 4.6 Chloride 91 L Carbon Dioxide 23 Anion Gap 10 BUN 16 Creatinine 0.4 L Estimated Creat Clear 40.04 Estimated GFR 101 Glucose 190 H Lactate 3.1 H Calcium 9.2 Magnesium Total Bilirubin 0.8 AST 37 H ALT 29 Alkaline Phosphatase 80 Troponin I 0.02 C-Reactive Protein 7.9 H NT-Pro-B Natriuret Pep 718 Total Protein 7.6 Albumin 4.1 Urine Color Urine Appearance Urine pH Ur Specific [place] Urine Protein Urine Glucose (UA) Urine Ketones Urine Blood Urine Nitrite Urine Bilirubin Urine Urobilinogen Ur Leukocyte Esterase Urine RBC Urine WBC Ur Squamous Epith Cells Urine Bacteria Urine L. pneumophilia Ag Urine Strep pneumoniae Ag SARS-CoV-2 (PCR) Negative SARS-CoV-2 Influenza Type A (PCR) Negative PCR FLU A Influenza Type B (PCR) Negative PCR FLU B RSV (PCR) Negative PCR RSV Lab Acknowledgement POC Troponin I 0.00 L 0103/05/24 03/06/24 22:35 23:27 06:09 WBC 11.57 H RBC 4.00 Hgb 12.9 Hct 38.0 MCV 95 MCH 32 MCHC 34 RDW Coeff of Valerie Plt Count 192 Neut % (Auto) Lymph % (Auto) Alexander % (Auto) Eos % (Auto) Baso % (Auto) Neut # (Auto) Lymph # (Auto) Alexander # (Auto) Eos # (Auto) Baso # (Auto) Abs Immat Gran (auto) Imm/Tot Granulo (auto) Sodium 126 L Potassium 4.6 Chloride 95 L Carbon Dioxide 23 Anion Gap 8 BUN 12 Creatinine 0.4 L Estimated Creat Clear 40.04 Estimated GFR 101 Glucose 148 H Lactate 2.5 H 3.1 H Calcium 8.6 Magnesium 1.5 Total Bilirubin 0.6 AST 30 ALT 26 Alkaline Phosphatase 77 Troponin I 0.03 C-Reactive Protein NT-Pro-B Natriuret Pep Total Protein 6.7 Albumin 3.5 Urine Color Yellow Urine Appearance Clear Urine pH 6.5 Ur Specific [place] 1.015 Urine Protein Negative Urine Glucose (UA) Negative Urine Ketones Negative Urine Blood Negative Urine Nitrite Negative Urine Bilirubin Negative Urine Urobilinogen 0.2 Ur Leukocyte Esterase Negative Urine RBC 0-2 Urine WBC 0-2 Ur Squamous Epith Cells Few Urine Bacteria Moderate A Urine L. pneumophilia Ag L. pneumo Negative Urine Strep pneumoniae Ag S. pneumo Negative SARS-CoV-2 (PCR) Influenza Type A (PCR) Influenza Type B (PCR) RSV (PCR) Lab Acknowledgement POC Troponin I 03/06/24 03/06/24 07:14 12:04 WBC RBC Hgb Hct MCV MCH MCHC RDW Coeff of Valerie Plt Count Neut % (Auto) Lymph % (Auto) Alexander % (Auto) Eos % (Auto) Baso % (Auto) Neut # (Auto) Lymph # (Auto) Alexander # (Auto) Eos # (Auto) Baso # (Auto) Abs Immat Gran (auto) Imm/Tot Granulo (auto) Sodium 126 L Potassium Chloride Carbon Dioxide Anion Gap BUN Creatinine Estimated Creat Clear Estimated GFR Glucose Lactate 2.0 H Calcium Magnesium Total Bilirubin AST ALT Alkaline Phosphatase Troponin I C-Reactive Protein NT-Pro-B Natriuret Pep Total Protein Albumin Urine Color Urine Appearance Urine pH Ur Specific [place] Urine Protein Urine Glucose (UA) Urine Ketones Urine Blood Urine Nitrite Urine Bilirubin Urine Urobilinogen Ur Leukocyte Esterase Urine RBC Urine WBC Ur Squamous Epith Cells Urine Bacteria Urine L. pneumophilia Ag Urine Strep pneumoniae Ag SARS-CoV-2 (PCR) Influenza Type A (PCR) Influenza Type B (PCR) RSV (PCR) Lab Acknowledgement Test Added POC Troponin I
[2024-03-06] MEDS: 0.9 % SODIUM CHLORIDE 1000 ml 1,000 ML 20 ML IV (17:27)
[2024-03-06] MEDS: DIGOXIN 250 MCG TABLET PO (18:05)
--- NOTE | 2024-03-06 18:34 | CRLHL7_ITS ---
For Patients: As a result of the Cures Act, medical imaging exams and procedure reports are released immediately into your electronic medical record. You may view this report before your referring provider. If you have questions, please contact your health care provider. INDICATION: Shortness of breath. TECHNIQUE: Chest 1 view(s) COMPARISON: Chest radiograph dated 03/05/2024. FINDINGS: Suboptimal evaluation secondary to body habitus. Cardiomegaly, unchanged. Slight interval increase in patchy central interstitial opacities. No significant layering pleural effusion. No pneumothorax. No acute chest wall abnormality. IMPRESSION: Interval increase in patchy central interstitial opacities, likely reflective of pulmonary edema secondary to CHF exacerbation. Dictated by Jayme Thorne MD @ 03/06/2024 7:44:40 PM (Electronically Signed)
--- NOTE | 2024-03-06 19:32 | PC.NURSE ---
Pt alert and oriented. Pt had no complaints of pain. Pt was changed to unit status at the beginning of shift. Diltiazem drip started around 8 Pt?s pulse and BP monitored Q15 mins while on Drip. Dilt Drip stopped at 0830am d/t Pt?s SBP being under 100; Provider consulted and changed parameters to MAP under 65. Drip stopped and restarted per parameters; see EMAR. At noon MD asked for drip to be changed to 2mg/2mL; see EMAR.? Pt has more swelling one UE as shift has progressed, MD assessed Pt; no intervention at this time. Around 18 00 Pt?s drip per MD to 4mg/4mL; see EMAR. Later on shift Pt?s LE edema was more prominent, and MD ordered a chest x ray; see chart. At 1900 Pt?s MAP 57 MD consulted and per MD decrease drip to 3mg/mL.?
[2024-03-06] MEDS: APIXABAN 5 MG TABLET PO (21:52)
[2024-03-06] MEDS: cefTRIAXone 2 GM in 0.9 % SODIUM CHLORIDE Mini-bag 100 ML IVPB (21:53)
[2024-03-06] MEDS: AZITHROMYCIN 500 MG in 0.9 % SODIUM CHLORIDE 250 ml 250 ML 255 MG IVPB (22:30)
[2024-03-07] VITALS (203 sets, daily range): BP systolic 89–156; BP diastolic 55–114; PULSE 2–146; RESP 18–22; TEMP 35.6–36.3; O2SAT 83–97
[2024-03-07] MEDS: PREGABALIN 50 MG CAPSULE PO ×4 (05:04→21:13)
[2024-03-07 06:39] LABS: Basophils Absolute Auto 0.03 K/uL (0.00-0.30); Basophils Percent Auto 0.3 % (0.0-3.0); Eosinophils Absolute Auto 0.23 K/uL (0.00-0.50); Eosinophils Percent Auto 2.3 % (0.0-7.0); Hematocrit 34.3 % (33.0-51.0); Hemoglobin* 11.7 gm/dL (12.0-16.0); Immature Granulocytes Abs Auto 0.09 K/uL (0.00-0.30); Immature Granulocytes Pct Auto 0.9 %; Lymphocytes Percent Auto 32.9 % (20-44); Mean Corpuscular HGB Conc 34 gm/dL (32-36); Mean Corpuscular Hemoglobin 33 pg (26-34); Mean Corpuscular Volume 96 fL (80-100); Neutrophils Absolute Auto 4.98 K/uL (1.7-7.0); Neutrophils Percent Auto 49.6 % (42.0-72.0); Platelet Count* 181 K/uL (140-440); RDW Coefficient of Variation % 13.5 % (11.5-15.5); Red Blood Count 3.58 m/uL (4.00-5.20); White Blood Count* 10.04 K/uL (4.50-11.00)
[2024-03-07 06:40] LABS: HCO3 VBG 25 mmol/L (21-28); Lactate* 1.5 mmol/L (0.5-1.9); PCO2 VBG 38 mmHG (40-50); PO2 VBG 70.7 mmHG (25-47)
[2024-03-07 06:46] LABS: Slide Review Reflex No
[2024-03-07 06:56] LABS: Chloride* 94 mmol/L (96-114)
[2024-03-07 06:59] LABS: Creatinine* 0.4 mg/dL (0.5-1.5); Est. Creatinine Clearance* 40.04; Estimated Glomerular Filt Rate 101 ml/min
[2024-03-07 07:00] LABS: Alanine Aminotransferase* 22 U/L (4-35); Alkaline Phosphatase* 74 U/L (40-150); Anion Gap 6 mEq/L (7-15); Aspartate Amino Transferase* 30 U/L (12-35); Bilirubin Total* 0.6 mg/dL (0.1-1.5); Blood Urea Nitrogen* 10 mg/dL (7-30); Calcium* 7.6 mg/dL (8.4-10.6); Carbon Dioxide* 24 mmol/L (20-32); Glucose* 118 mg/dL (60-115); Magnesium* 1.6 mg/dL (1.5-2.6); Total Protein* 6.1 g/dL (6.0-8.3)
[2024-03-07 07:15] LABS: C Reactive Protein* 14.6 mg/dL (0.5-1.0); Sodium* 124 mmol/L (135-149)
[2024-03-07 08:01] LABS: Troponin I* 0.02 ng/mL (0.01-0.04)
[2024-03-07 08:06] LABS: Procalcitonin* 0.08 ng/mL (<0.50)
[2024-03-07 08:13] LABS: NT Pro B Type NatriureticPept* 3420 pg/mL
[2024-03-07] MEDS: DIVALPROEX SODIUM ER TAB 250 MG 750 MG PO ×2 (08:35→21:13)
[2024-03-07] MEDS: ASPIRIN 81 MG TAB.CHEW PO (08:35)
[2024-03-07] MEDS: PRIMIDONE 50 MG TABLET 250 MG PO (08:35)
[2024-03-07] MEDS: APIXABAN 5 MG TABLET PO ×2 (08:35→21:13)
[2024-03-07] MEDS: dilTIAZem 240 MG CAP (CD) PO (08:35)
[2024-03-07] MEDS: PREGABALIN 100 MG CAPSULE PO (08:35)
[2024-03-07] MEDS: BENZONATATE 100 MG CAPSULE 200 MG PO ×3 (08:35→21:12)
[2024-03-07 09:39] LABS: Digoxin* 0.4 ng/mL (0.8-2.0)
--- NOTE | 2024-03-07 09:56 | REH.OT ---
OT/PT: Chart reviewed, spoke with RN and charge nurse, due to medical issues and a-fib, therapies are to hold today. Will recheck status and progress activity when appropriate.
[2024-03-07] MEDS: DIGOXIN 125 MCG TABLET PO (10:17)
[2024-03-07] MEDS: FUROSEMIDE 10 MG/ML inj 20 MG IVP ×2 (11:11→14:42)
[2024-03-07] MEDS: dilTIAZem 120 MG CAP.ER.24H PO (11:11)
[2024-03-07] MEDS: METOPROLOL TARTRATE 25 MG TABLET PO ×4 (11:52→23:18)
[2024-03-07] MEDS: SODIUM CHLORIDE 1 GM TABLET PO (13:43)
--- NOTE | 2024-03-07 15:27 | PM.IMPN1 ---
Progress Note: A&P Assessment and plan (1) Sepsis: Problem details: -At the ED, patient was tachycardic EKG showed sinus tachycardia and a normal troponin. Patient has mild WBC elevation at 11.4, lactate was elevated at 3.1 and CRP elevated at about 7.9. -Treat sepsis, elevated lactic acid, Treat CAP IV Abx + IVF -trend lactate, follow-up blood & sputum cultures Status: Acute (2) Community acquired pneumonia: Problem details: - above -started ceftriaxone and azithromycin -follow-up blood cultures -ordered urine strep pneumonia and Legionella antigens Status: Acute (3) Tachycardia: Problem details: EKG from the ED shows P-waves and multiple leads, regular, likely secondary to sepsis Repeat EKG to rule out AFib Ordered cardiac monitoring Normal troponins Echocardiogram 03/06/2024 demonstrates normal LV size with moderately increased LV wall thickness and normal EF of 60-65%. Normal RV chamber size and function. Severely enlarged left atrium. Inferior vena cava consistent with elevated right atrial pressure. Status: Acute (4) Atrial fibrillation with rapid ventricular response: Problem details: -unable to achieve rate control with IV metoprolol and IV diltiazem boluses. -transferred to CCU status. -initiated IV diltiazem drip. Added oral diltiazem. -increased dose of oral diltiazem and oral metoprolol in addition to dig loading patient yesterday. Digoxin level 03/07/2024 is 0.4. -serial EKGs, trop I. -initiate anticoagulation with apixaban 5 mg p.o. b.i.d. Status: Acute (5) Acute respiratory failure with hypoxia: Problem details: -continue with low-flow oxygen support as needed -suspect this is multifactorial from community-acquired pneumonia as well as evolving pulmonary edema -will add furosemide IV and monitor response Status: Acute (6) Elevated lactic acid level: Problem details: lactate was elevated at 3.1 Trend lactate Status: Acute (7) Transaminitis: Problem details: -mild elevation, chronic as patient had transaminitis couple of years ago -likely secondary to SILVA but patient will need outpatient liver workup Status: Acute (8) Type 2 diabetes mellitus: Problem details: -ordered insulin glargine 10 units q.h.s. -ordered low-dose insulin sliding scale -last hemoglobin A1c was 6.4 Status: Acute (9) Seizure disorder: Problem details: Patient does not know her home meds, but she took them today morning Will need medication reconciliation with pharmacy help and then resume anti seizure medication Patient states that she has controlled her last seizure was long time ago (years) Status: Acute (10) Morbid obesity: Problem details: -were some risk factor for obesity associated hypoventilation syndrome -venous blood gas monitoring Status: Acute (11) Acute hyponatremia: Problem details: -Labs were also significant for hyponatremia with sodium of 124. Chest x-ray showed bilateral but she lower lobe interstitial/airspace disease. -hyponatremia likely secondary to pneumonia, will treat pneumonia and monitor sodium levels. A total of 1.5 L of IV fluids was given at the ED. Status: Acute (12) Pulmonary edema: Problem details: -add furosemide 20 mg IV this morning and monitor response and consider increasing dose -likely in part due to volume overloaded state from add administration of IV fluids when patient had low blood pressures, in combination with underlying diastolic heart failure Status: Acute (13) Acute diastolic heart failure: Problem details: -due to acute illness, hypertensive heart disease including hypertrophic left ventricle, plus IV fluids utilized to resuscitate and stabilize patient when she was hypotensive -IV furosemide and monitor potassium and magnesium -continue with metoprolol dose titration for AFib RVR -given relatively normal LV function will continue with diltiazem IV and p.o. at this time Status: Acute Plan 1. Reviewed impression with patient and 2. Answered their questions 3. There are agreeable with above stated plans and recommendations 4. Consider cardiology consultation if not making improvements or worsening Time Spent With Patient Total time spent: 60 minutes Subjective Date Seen: 03/07/24 Interval history: Hospital day 3, 03/07/2024. Patient and informed me how they had grandchildren and children visiting and how they were ill. Both and the patient became ill after their family members left the home. Patient's condition has worsened over the last few days and thus she presents to the emergency department yesterday for further assessment and admission. She denies chest heaviness, pressure, tightness, or pain at this time. Denies dyspnea at rest but acknowledges dyspnea with minimal exertion. Continues to have a sense of dry cough. Cough nonproductive. Denies palpitations or chest fluttering. Ongoing generalized weakness. Now eating slightly more than she did previously but still very minimally. Exam Narrative: Exam Narrative: I examine her in her hospital room. Laying in her bed with head of bed elevated about 30?. Does not appear uncomfortable. Does appear tired. Vision and hearing are adequate. Alert and oriented x3. Has jugular venous distension as well as hepatojugular reflux with head of bed elevated at 30?. Lungs with bibasilar rales and scattered rhonchi. Heart tones chaotic and tachycardic. Abdomen was obese with active bowel sounds. Trace edema bilateral upper extremities and lower extremities. No focal motor neurologic deficits per se, does have generalized weakness. Const: Vital Signs, click to edit/add: Vital Signs - 24 hr 03/06/24 15:30 03/06/24 15:32 03/06/24 15:33 Temperature Pulse Rate 115 H 132 H 110 H Pulse Rate [Pulse Oximeter] Respiratory Rate Blood Pressure 118/74 Pulse Oximetry 97 97 97 Oxygen Delivery Me thod Oxygen Flow Rate 03/06/24 15:45 03/06/24 15:47 03/06/24 15:48 Temperature Pulse Rate 115 H 109 H 106 H Pulse Rate [Pulse Oximeter] Respiratory Rate Blood Pressure 117/87 Pulse Oximetry 94 98 93 Oxygen Delivery Me thod Oxygen Flow Rate 03/06/24 16:00 03/06/24 16:02 03/06/24 16:03 Temperature Pulse Rate 107 H 128 H 110 H Pulse Rate [Pulse Oximeter] Respiratory Rate Blood Pressure 100/61 Pulse Oximetry 94 95 95 Oxygen Delivery Me thod Oxygen Flow Rate 03/06/24 16:15 03/06/24 16:17 03/06/24 16:18 Temperature Pulse Rate 114 H 110 H 123 H Pulse Rate [Pulse Oximeter] Respiratory Rate Blood Pressure 109/87 Pulse Oximetry 96 95 95 Oxygen Delivery Me thod Oxygen Flow Rate 03/06/24 16:30 03/06/24 16:33 03/06/24 16:34 Temperature Pulse Rate 115 H 105 H 109 H Pulse Rate [Pulse Oximeter] Respiratory Rate Blood Pressure 112/66 Pulse Oximetry 95 95 96 Oxygen Delivery Me thod Oxygen Flow Rate 03/06/24 16:45 03/06/24 16:47 03/06/24 16:48 Temperature Pulse Rate 113 H 118 H 102 H Pulse Rate [Pulse Oximeter] Respiratory Rate Blood Pressure 104/90 H Pulse Oximetry 95 95 95 Oxygen Delivery Me thod Oxygen Flow Rate 03/06/24 17:00 03/06/24 17:02 03/06/24 17:03 Temperature Pulse Rate 116 H 131 H 112 H Pulse Rate [Pulse Oximeter] Respiratory Rate Blood Pressure 120/84 Pulse Oximetry 97 98 98 Oxygen Delivery Me thod Oxygen Flow Rate 03/06/24 17:15 03/06/24 17:17 03/06/24 17:18 Temperature Pulse Rate 109 H 117 H 109 H Pulse Rate [Pulse Oximeter] Respiratory Rate Blood Pressure 108/57 L Pulse Oximetry 95 95 94 Oxygen Delivery Me thod Oxygen Flow Rate 03/06/24 17:30 03/06/24 17:33 03/06/24 17:34 Temperature Pulse Rate 138 H 122 H 128 H Pulse Rate [Pulse Oximeter] Respiratory Rate Blood Pressure 130/63 Pulse Oximetry 89 96 96 Oxygen Delivery Me thod Oxygen Flow Rate 03/06/24 17:45 03/06/24 17:47 03/06/24 17:48 Temperature Pulse Rate 125 H 115 H 122 H Pulse Rate [Pulse Oximeter] Respiratory Rate 22 Blood Pressure 105/83 Pulse Oximetry 96 97 96 Oxygen Delivery Me thod Oxygen Flow Rate 2 03/06/24 18:00 03/06/24 18:02 03/06/24 18:03 Temperature 97.7 F Pulse Rate 120 H 129 H 112 H Pulse Rate [Pulse Oximeter] Respiratory Rate Blood Pressure 106/65 Pulse Oximetry 95 94 94 Oxygen Delivery Me thod Oxygen Flow Rate 2 03/06/24 18:05 03/06/24 18:15 03/06/24 18:17 Temperature 207.9 F H Pulse Rate 127 H 108 H 109 H Pulse Rate [Pulse Oximeter] Respiratory Rate Blood Pressure 93/63 Pulse Oximetry 96 97 Oxygen Delivery Me thod Oxygen Flow Rate 03/06/24 18:18 03/06/24 18:30 03/06/24 18:35 Temperature Pulse Rate 120 H 122 H 109 H Pulse Rate [Pulse Oximeter] Respiratory Rate Blood Pressure 120/57 L Pulse Oximetry 94 96 Oxygen Delivery Me thod Oxygen Flow Rate 03/06/24 18:38 03/06/24 18:45 03/06/24 18:47 Temperature Pulse Rate 102 H 115 H 114 H Pulse Rate [Pulse Oximeter] Respiratory Rate Blood Pressure 120/57 L 110/61 Pulse Oximetry 97 94 91 Oxygen Delivery Me thod Oxygen Flow Rate 03/06/24 18:48 03/06/24 19:00 03/06/24 19:00 Temperature Pulse Rate 108 H 103 H 114 H Pulse Rate [Pulse Oximeter] Respiratory Rate Blood Pressure Pulse Oximetry 91 94 Oxygen Delivery Me thod Oxygen Flow Rate 03/06/24 19:00 03/06/24 19:03 03/06/24 19:04 Temperature Pulse Rate 112 H 107 H Pulse Rate [Pulse Oximeter] 124 H Respiratory Rate Blood Pressure 108/32 L Pulse Oximetry 95 96 Oxygen Delivery Me thod Oxygen Flow Rate 03/06/24 19:16 03/06/24 19:17 03/06/24 19:30 Temperature Pulse Rate 85 113 H 112 H Pulse Rate [Pulse Oximeter] Respiratory Rate Blood Pressure 108/88 122/67 Pulse Oximetry 95 96 96 Oxygen Delivery Me thod Nasal Cannula Oxygen Flow Rate 03/06/24 19:45 03/06/24 20:15 03/06/24 20:30 Temperature 97.5 F L Pulse Rate 106 H 97 121 H Pulse Rate [Pulse Oximeter] Respiratory Rate 20 20 Blood Pressure 126/67 109/78 146/72 H Pulse Oximetry 96 95 95 Oxygen Delivery Me thod Nasal Cannula Nasal Cannula Nasal Cannula Oxygen Flow Rate 1.5 1.5 03/06/24 20:45 03/06/24 21:00 03/06/24 21:15 Temperature 99.2 F Pulse Rate 109 H 116 H 133 H Pulse Rate [Pulse Oximeter] Respiratory Rate 20 Blood Pressure 139/58 L 118/52 L 130/97 H Pulse Oximetry 95 86 L 95 Oxygen Delivery Me thod Nasal Cannula Nasal Cannula Oxygen Flow Rate 1.5 1.5 03/06/24 21:30 03/06/24 21:45 03/06/24 22:00 Temperature 96.1 F L Pulse Rate 100 112 H 120 H Pulse Rate [Pulse Oximeter] Respiratory Rate 20 20 Blood Pressure 126/83 129/66 115/59 L Pulse Oximetry 95 95 Oxygen Delivery Me thod Nasal Cannula Oxygen Flow Rate 1.5 03/06/24 22:15 03/06/24 23:00 03/06/24 23:00 Temperature 97.6 F Pulse Rate 97 118 H Pulse Rate [Pulse Oximeter] Respiratory Rate 18 Blood Pressure 109/78 Pulse Oximetry 95 Oxygen Delivery Me thod Nasal Cannula Room Air Oxygen Flow Rate 1.5 03/06/24 23:00 03/06/24 23:00 03/06/24 23:15 Temperature 97.4 F L Pulse Rate 100 95 Pulse Rate [Pulse Oximeter] 98 Respiratory Rate 20 20 Blood Pressure 122/66 96/75 Pulse Oximetry 94 94 Oxygen Delivery Me thod Nasal Cannula Nasal Cannula Oxygen Flow Rate 1.5 1.5 03/06/24 23:30 03/06/24 23:45 03/07/24 00:00 Temperature Pulse Rate 97 100 95 Pulse Rate [Pulse Oximeter] Respiratory Rate 20 20 Blood Pressure 112/66 116/70 109/55 L Pulse Oximetry 95 95 Oxygen Delivery Me thod Oxygen Flow Rate 03/07/24 00:15 03/07/24 00:30 03/07/24 00:45 Temperature 96.8 F L Pulse Rate 91 94 92 Pulse Rate [Pulse Oximeter] Respiratory Rate 20 20 Blood Pressure 104/66 107/68 114/75 Pulse Oximetry Oxygen Delivery Me thod Room Air Oxygen Flow Rate 03/07/24 00:45 03/07/24 01:00 03/07/24 01:15 Temperature Pulse Rate 93 93 102 H Pulse Rate [Pulse Oximeter] Respiratory Rate 20 18 Blood Pressure 114/75 111/74 120/60 Pulse Oximetry 95 94 95 Oxygen Delivery Me thod Nasal Cannula Nasal Cannula Oxygen Flow Rate 1.5 1.5 03/07/24 01:30 03/07/24 01:45 03/07/24 02:00 Temperature Pulse Rate 81 102 H Pulse Rate [Pulse Oximeter] Respiratory Rate 20 22 Blood Pressure 127/67 101/81 104/57 L Pulse Oximetry 95 95 Oxygen Delivery Me thod Nasal Cannula Oxygen Flow Rate 03/07/24 02:15 03/07/24 02:30 03/07/24 02:45 Temperature 96.1 F L Pulse Rate 115 H 110 H 109 H Pulse Rate [Pulse Oximeter] Respiratory Rate 18 20 Blood Pressure 117/69 123/77 132/62 Pulse Oximetry 95 95 Oxygen Delivery Me thod Nasal Cannula Nasal Cannula Oxygen Flow Rate 1.5 1.5 03/07/24 03:00 03/07/24 03:00 03/07/24 03:15 Temperature 96.8 F L Pulse Rate 116 H 126 H Pulse Rate [Pulse Oximeter] 98 Respiratory Rate 20 Blood Pressure 134/77 121/59 L Pulse Oximetry Oxygen Delivery Me thod Nasal Cannula Nasal Cannula Oxygen Flow Rate 1.5 1.5 03/07/24 03:30 03/07/24 03:45 03/07/24 04:15 Temperature 96.1 F L Pulse Rate 116 H 100 2 L Pulse Rate [Pulse Oximeter] Respiratory Rate Blood Pressure 140/86 H 105/72 134/71 Pulse Oximetry 95 Oxygen Delivery Me thod Oxygen Flow Rate 03/07/24 04:30 03/07/24 04:45 03/07/24 04:45 Temperature Pulse Rate 102 H 130 H Pulse Rate [Pulse Oximeter] Respiratory Rate Blood Pressure 123/63 123/104 H 143/74 H Pulse Oximetry 95 Oxygen Delivery Me thod Oxygen Flow Rate 03/07/24 05:00 03/07/24 05:30 03/07/24 06:00 Temperature 96.8 F L 96.1 F L 96.1 F L Pulse Rate 121 H 106 H 108 H Pulse Rate [Pulse Oximeter] Respiratory Rate 20 20 20 Blood Pressure 137/91 H 132/75 145/85 H Pulse Oximetry 95 Oxygen Delivery Me thod Nasal Cannula Nasal Cannula Nasal Cannula Oxygen Flow Rate 1.5 1.5 1.5 03/07/24 07:00 03/07/24 07:00 03/07/24 07:15 Temperature Pulse Rate 116 H 93 102 H Pulse Rate [Pulse Oximeter] Respiratory Rate Blood Pressure Pulse Oximetry 87 L 83 L Oxygen Delivery Me thod Oxygen Flow Rate 03/07/24 07:18 03/07/24 07:20 03/07/24 07:22 Temperature 97.4 F L Pulse Rate 114 H 115 H Pulse Rate [Pulse Oximeter] 115 H Respiratory Rate 18 18 Blood Pressure 145/85 H 120/83 Pulse Oximetry 95 Oxygen Delivery Me thod Oxygen Flow Rate 1.5 03/07/24 07:23 03/07/24 07:26 03/07/24 07:30 Temperature Pulse Rate 112 H 111 H Pulse Rate [Pulse Oximeter] Respiratory Rate 18 Blood Pressure Pulse Oximetry 95 95 95 Oxygen Delivery Me thod Nasal Cannula Oxygen Flow Rate 1.5 03/07/24 07:32 03/07/24 07:33 03/07/24 07:45 Temperature Pulse Rate 109 H 100 114 H Pulse Rate [Pulse Oximeter] Respiratory Rate Blood Pressure 105/68 Pulse Oximetry 94 94 96 Oxygen Delivery Me thod Oxygen Flow Rate 03/07/24 07:47 03/07/24 07:48 03/07/24 08:00 Temperature Pulse Rate 114 H 101 H 105 H Pulse Rate [Pulse Oximeter] Respiratory Rate Blood Pressure 115/67 116/94 H Pulse Oximetry 95 95 95 Oxygen Delivery Me thod Oxygen Flow Rate 03/07/24 08:03 03/07/24 08:15 03/07/24 08:17 Temperature Pulse Rate 146 H 121 H 119 H Pulse Rate [Pulse Oximeter] Respiratory Rate Blood Pressure 116/94 H 138/78 Pulse Oximetry 95 97 96 Oxygen Delivery Me thod Oxygen Flow Rate 03/07/24 08:18 03/07/24 08:30 03/07/24 08:32 Temperature Pulse Rate 119 H 113 H 142 H Pulse Rate [Pulse Oximeter] Respiratory Rate Blood Pressure 123/63 Pulse Oximetry 97 95 96 Oxygen Delivery Me thod Oxygen Flow Rate 1 03/07/24 08:33 03/07/24 08:45 03/07/24 08:47 Temperature Pulse Rate 128 H 137 H 109 H Pulse Rate [Pulse Oximeter] Respiratory Rate Blood Pressure 127/92 H Pulse Oximetry 97 95 95 Oxygen Delivery Me thod Oxygen Flow Rate 03/07/24 08:48 03/07/24 09:00 03/07/24 09:02 Temperature Pulse Rate 113 H 128 H 97 Pulse Rate [Pulse Oximeter] Respiratory Rate Blood Pressure 135/114 H Pulse Oximetry 96 95 93 Oxygen Delivery Me thod Oxygen Flow Rate 03/07/24 09:15 03/07/24 09:17 03/07/24 09:18 Temperature Pulse Rate 131 H 130 H 134 H Pulse Rate [Pulse Oximeter] Respiratory Rate Blood Pressure 140/98 H Pulse Oximetry 92 93 94 Oxygen Delivery Me thod Oxygen Flow Rate 03/07/24 09:30 03/07/24 09:32 03/07/24 09:45 Temperature Pulse Rate 117 H 99 98 Pulse Rate [Pulse Oximeter] Respiratory Rate Blood Pressure 156/94 H Pulse Oximetry 95 94 92 Oxygen Delivery Me thod Oxygen Flow Rate 03/07/24 09:47 03/07/24 09:48 03/07/24 10:00 Temperature Pulse Rate 121 H 120 H 115 H Pulse Rate [Pulse Oximeter] Respiratory Rate Blood Pressure 114/80 Pulse Oximetry 91 93 93 Oxygen Delivery Me thod Oxygen Flow Rate 03/07/24 10:02 03/07/24 10:03 03/07/24 10:13 Temperature 97.4 F L Pulse Rate 105 H 115 H 130 H Pulse Rate [Pulse Oximeter] Respiratory Rate 22 Blood Pressure 124/78 Pulse Oximetry 93 93 93 Oxygen Delivery Me thod Nasal Cannula Oxygen Flow Rate 1 03/07/24 10:15 03/07/24 10:17 03/07/24 10:17 Temperature 205.5 F H Pulse Rate 125 H 114 H 111 H Pulse Rate [Pulse Oximeter] Respiratory Rate Blood Pressure 127/87 Pulse Oximetry 93 92 Oxygen Delivery Me thod Oxygen Flow Rate 03/07/24 10:18 03/07/24 10:30 03/07/24 10:32 Temperature Pulse Rate 108 H 117 H 100 Pulse Rate [Pulse Oximeter] Respiratory Rate Blood Pressure 128/73 Pulse Oximetry 94 91 93 Oxygen Delivery Me thod Oxygen Flow Rate 03/07/24 10:33 03/07/24 10:45 03/07/24 10:46 Temperature Pulse Rate 112 H 100 138 H Pulse Rate [Pulse Oximeter] Respiratory Rate Blood Pressure Pulse Oximetry 93 91 Oxygen Delivery Me thod Oxygen Flow Rate 03/07/24 10:47 03/07/24 10:48 03/07/24 10:48 Temperature Pulse Rate 120 H 112 H Pulse Rate [Pulse Oximeter] 126 H Respiratory Rate 22 Blood Pressure 115/77 Pulse Oximetry 93 92 Oxygen Delivery Me thod Oxygen Flow Rate 03/07/24 11:00 03/07/24 11:02 03/07/24 11:03 Temperature Pulse Rate 139 H 126 H 124 H Pulse Rate [Pulse Oximeter] Respiratory Rate Blood Pressure 119/80 Pulse Oximetry 91 91 94 Oxygen Delivery Me thod Oxygen Flow Rate 03/07/24 11:10 03/07/24 11:15 03/07/24 11:17 Temperature Pulse Rate 112 H 120 H 101 H Pulse Rate [Pulse Oximeter] Respiratory Rate Blood Pressure 125/94 H 112/70 Pulse Oximetry 93 95 91 Oxygen Delivery Me thod Oxygen Flow Rate 03/07/24 11:18 03/07/24 11:30 03/07/24 11:32 Temperature Pulse Rate 122 H 115 H 111 H Pulse Rate [Pulse Oximeter] Respiratory Rate Blood Pressure 112/70 121/79 Pulse Oximetry 94 93 94 Oxygen Delivery Me thod Oxygen Flow Rate 1 03/07/24 11:45 03/07/24 11:47 03/07/24 11:48 Temperature Pulse Rate 117 H 98 120 H Pulse Rate [Pulse Oximeter] Respiratory Rate Blood Pressure 121/76 Pulse Oximetry 92 92 91 Oxygen Delivery Me thod Oxygen Flow Rate 03/07/24 12:00 03/07/24 12:03 03/07/24 12:04 Temperature Pulse Rate 103 H 113 H 90 Pulse Rate [Pulse Oximeter] Respiratory Rate Blood Pressure 137/100 H Pulse Oximetry 90 95 94 Oxygen Delivery Me thod Oxygen Flow Rate 03/07/24 12:15 03/07/24 12:18 03/07/24 12:19 Temperature Pulse Rate 129 H 106 H 133 H Pulse Rate [Pulse Oximeter] Respiratory Rate Blood Pressure 120/69 Pulse Oximetry 93 94 Oxygen Delivery Me thod Oxygen Flow Rate 03/07/24 12:19 03/07/24 12:30 03/07/24 12:32 Temperature Pulse Rate 116 H 108 H 102 H Pulse Rate [Pulse Oximeter] Respiratory Rate Blood Pressure 89/61 L Pulse Oximetry 94 90 92 Oxygen Delivery Me thod Oxygen Flow Rate 03/07/24 12:33 03/07/24 12:39 03/07/24 12:45 Temperature Pulse Rate 94 108 H 109 H Pulse Rate [Pulse Oximeter] Respiratory Rate Blood Pressure 120/71 120/71 Pulse Oximetry 90 90 91 Oxygen Delivery Me thod Oxygen Flow Rate 1 03/07/24 12:47 03/07/24 12:48 03/07/24 13:00 Temperature Pulse Rate 129 H 114 H 82 Pulse Rate [Pulse Oximeter] Respiratory Rate Blood Pressure 112/88 Pulse Oximetry 92 90 90 Oxygen Delivery Me thod Oxygen Flow Rate 03/07/24 13:02 03/07/24 13:15 03/07/24 13:17 Temperature Pulse Rate 109 H 132 H 119 H Pulse Rate [Pulse Oximeter] Respiratory Rate Blood Pressure 104/90 H 125/92 H Pulse Oximetry 90 94 95 Oxygen Delivery Me thod Oxygen Flow Rate 03/07/24 13:18 03/07/24 13:30 03/07/24 13:32 Temperature Pulse Rate 121 H 111 H 129 H Pulse Rate [Pulse Oximeter] Respiratory Rate Blood Pressure 132/86 Pulse Oximetry 94 93 95 Oxygen Delivery Me thod Oxygen Flow Rate 03/07/24 13:33 03/07/24 13:45 03/07/24 13:47 Temperature 97.4 F L Pulse Rate 120 H 139 H 140 H Pulse Rate [Pulse Oximeter] Respiratory Rate 22 Blood Pressure 131/106 H Pulse Oximetry 95 92 93 Oxygen Delivery Me thod Oxygen Flow Rate 2 03/07/24 13:48 03/07/24 14:00 03/07/24 14:02 Temperature Pulse Rate 130 H 128 H 126 H Pulse Rate [Pulse Oximeter] Respiratory Rate Blood Pressure 106/80 Pulse Oximetry 93 90 90 Oxygen Delivery Me thod Oxygen Flow Rate 03/07/24 14:15 03/07/24 14:17 03/07/24 14:30 Temperature Pulse Rate 110 H 119 H Pulse Rate [Pulse Oximeter] Respiratory Rate Blood Pressure 102/76 Pulse Oximetry 89 94 Oxygen Delivery Me thod Oxygen Flow Rate 03/07/24 14:46 03/07/24 14:54 03/07/24 15:01 Temperature Pulse Rate 126 H Pulse Rate [Pulse Oximeter] Respiratory Rate 22 Blood Pressure 119/67 Pulse Oximetry 90 Oxygen Delivery Me thod Nasal Cannula Oxygen Flow Rate 2 Labs Labs: Laboratory Results - last 24 hr 03/07/24 06:20 WBC 10.04 RBC 3.58 L Hgb 11.7 L Hct 34.3 MCV 96 MCH 33 MCHC 34 RDW Coeff of Valerie 13.5 Plt Count 181 Neut % (Auto) 49.6 Lymph % (Auto) 32.9 [place] % (Auto) 14.0 H Eos % (Auto) 2.3 Baso % (Auto) 0.3 Neut # (Auto) 4.98 Lymph # (Auto) 3.30 H [place] # (Auto) 1.40 H Eos # (Auto) 0.23 Baso # (Auto) 0.03 Abs Immat Gran (auto) 0.09 Imm/Tot Granulo (auto) 0.9 VBG pH 7.420 VBG pCO2 38 L VBG pO2 70.7 H VBG HCO3 25 Sodium 124 L* Potassium 4.0 Chloride 94 L Carbon Dioxide 24 Anion Gap 6 L BUN 10 Creatinine 0.4 L Estimated Creat Clear 40.04 Estimated GFR 101 Glucose 118 H Lactate 1.5 Calcium 7.6 L Magnesium 1.6 Total Bilirubin 0.6 AST 30 ALT 22 Alkaline Phosphatase 74 Troponin I 0.02 C-Reactive Protein 14.6 H NT-Pro-B Natriuret Pep 3420 Total Protein 6.1 Albumin 3.0 L Procalcitonin 0.08 TSH 6.200 H Digoxin 0.4 L
[2024-03-07] MEDS: dilTIAZem HCL 125 MG in 0.9 % SODIUM CHLORIDE 100 ml 100 ML IVPB (16:28)
[2024-03-07] MEDS: SODIUM CHLORIDE 1 GM TABLET 2 GM PO (18:10)
--- NOTE | 2024-03-07 18:51 | PC.NURSE ---
Pt alert and oriented. Pt had no complaints of pain. Pt up to chair with a ceiling life. Pt needs assistance with ADL?s and assistance with eating. Pt has been on diltiazem drip for the whole shift at 3mg/3mL/hour. Oral medications given as well; see EMAR. Pt has consistently maintained heart rates of 110?s-140?s during shift- see chart (Q15min VS). Pt?s had different medications changes during shift; see EMAR. Pt up with ceiling lift and assist of three to recliner. Pt has been on 1-3 Liters of oxygen depending on Pt saturation levels. Pt has mouthpiece for her TOM but has not been wearing it at night or when napping because of her coughing spells. Pt has been diaphoretic during shift, but afebrile changes of conditions reported to MD; see orders for interventions. Towards end of shift Pt has had some episodes where heart rate will go below 100 but does not stay there long. Per MD once rate can be maintained for 30 mins then consult with MD to titrate drip down.?
[2024-03-07] MEDS: ATORVASTATIN 10 MG TABLET 20 MG PO (21:13)
[2024-03-07] MEDS: SODIUM CHLORIDE 0.9 % (FLUSH) 10 ML SYRINGE 5 ML IVF (21:14)
[2024-03-07] MEDS: INSULIN GLARGINE,HUM.REC.ANLOG 100 UNIT/ML INSULN.PEN 10 UNIT SUBCUT (21:14)
[2024-03-07] MEDS: cefTRIAXone 2 GM in 0.9 % SODIUM CHLORIDE Mini-bag 100 ML IVPB (21:15)
[2024-03-07] MEDS: AZITHROMYCIN 500 MG in 0.9 % SODIUM CHLORIDE 250 ml 250 ML 255 MG IVPB (22:14)
[2024-03-08] VITALS (245 sets, daily range): BP systolic 99–155; BP diastolic 47–113; PULSE 84–155; RESP 20–24; TEMP 36.3–36.6; O2SAT 88–97
[2024-03-08] MEDS: METOPROLOL TARTRATE 25 MG TABLET PO ×5 (03:20→22:18)
[2024-03-08 06:37] LABS: HCO3 VBG 27 mmol/L (21-28); Lactate* 1.7 mmol/L (0.5-1.9); PCO2 VBG 40 mmHG (40-50); PO2 VBG 63.6 mmHG (25-47)
[2024-03-08 06:41] LABS: Hematocrit 36.9 % (33.0-51.0); Hemoglobin* 12.6 gm/dL (12.0-16.0); Mean Corpuscular HGB Conc 34 gm/dL (32-36); Mean Corpuscular Hemoglobin 32 pg (26-34); Mean Corpuscular Volume 95 fL (80-100); Platelet Count* 224 K/uL (140-440); Red Blood Count 3.89 m/uL (4.00-5.20); White Blood Count* 11.23 K/uL (4.50-11.00)
[2024-03-08 06:47] LABS: Slide Review Reflex No
[2024-03-08 06:56] LABS: Chloride* 94 mmol/L (96-114); Sodium* 127 mmol/L (135-149)
[2024-03-08 06:59] LABS: Anion Gap 6 mEq/L (7-15); Blood Urea Nitrogen* 12 mg/dL (7-30); Carbon Dioxide* 27 mmol/L (20-32); Creatinine* 0.5 mg/dL (0.5-1.5); Est. Creatinine Clearance* 40.04; Estimated Glomerular Filt Rate 96 ml/min; Glucose* 152 mg/dL (60-115)
[2024-03-08 07:00] LABS: Magnesium* 1.8 mg/dL (1.5-2.6); Phosphorus* 3.1 mg/dL (2.5-4.5)
[2024-03-08 07:02] LABS: C Reactive Protein* 8.7 mg/dL (0.5-1.0)
[2024-03-08 07:12] LABS: Troponin I* 0.03 ng/mL (0.01-0.04)
[2024-03-08 07:16] LABS: Procalcitonin* 0.08 ng/mL (<0.50)
[2024-03-08 07:25] LABS: NT Pro B Type NatriureticPept* 2610 pg/mL
[2024-03-08] MEDS: SODIUM CHLORIDE 1 GM TABLET 2 GM PO ×3 (07:51→17:39)
[2024-03-08] MEDS: PREGABALIN 100 MG CAPSULE PO (07:51)
[2024-03-08] MEDS: DIGOXIN 125 MCG TABLET PO (07:51)
[2024-03-08] MEDS: DIVALPROEX SODIUM ER TAB 250 MG 750 MG PO ×2 (07:51→20:30)
[2024-03-08] MEDS: BENZONATATE 100 MG CAPSULE 200 MG PO ×3 (07:52→20:30)
[2024-03-08] MEDS: APIXABAN 5 MG TABLET PO ×2 (07:52→20:30)
[2024-03-08] MEDS: ASPIRIN 81 MG TAB.CHEW PO (07:52)
[2024-03-08] MEDS: FUROSEMIDE 10 MG/ML inj 40 MG IVP (07:52)
[2024-03-08] MEDS: PRIMIDONE 50 MG TABLET 250 MG PO (07:54)
[2024-03-08] MEDS: SODIUM CHLORIDE 0.9 % (FLUSH) 10 ML SYRINGE 5 ML IVF ×2 (08:00→20:31)
--- NOTE | 2024-03-08 08:07 | CRLHL7_ITS ---
For Patients: As a result of the Century Cures Act, medical imaging exams and procedure reports are released immediately into your electronic medical record. You may view this report before your referring provider. If you have questions, please contact your health care provider. INDICATION: Cough. Difficulty breathing. TECHNIQUE: Chest 1 view. COMPARISON: Chest radiograph 03/06/2024 and 03/05/2024. FINDINGS: Mild enlargement of the cardiac silhouette size, unchanged. Low lung volumes with similar-appearing interstitial opacities mainly in the lower lobes. No focal consolidation. No pleural effusion or pneumothorax. Degenerative changes and rightward curvature of the thoracic spine. IMPRESSION: Cardiomegaly and predominantly lower lobe interstitial opacities. Findings are suggestive of pulmonary edema. Infection is not excluded. Dictated by Erika Griffin MD @ 03/08/2024 10:29:43 AM (Electronically Signed)
[2024-03-08 08:34] LABS: Digoxin* < 0.4 ng/mL (0.8-2.0)
[2024-03-08] MEDS: DIGOXIN 250 MCG TABLET 500 MCG PO (09:35)
[2024-03-08] MEDS: INSULIN ASPART 100 UNIT/ML SUBCUT ×2 (09:54→17:38)
--- NOTE | 2024-03-08 14:38 | PM.IMPN1 ---
Progress Note: A&P Assessment and plan (1) Sepsis: Problem details: -At the ED, patient was tachycardic EKG showed sinus tachycardia and a normal troponin. Patient has mild WBC elevation at 11.4, lactate was elevated at 3.1 and CRP elevated at about 7.9. -Treat sepsis, elevated lactic acid, Treat CAP IV Abx + IVF -trend lactate -blood cultures negative to date. Sputum cultures not obtained. Status: Acute (2) Community acquired pneumonia: Problem details: - above -started ceftriaxone and azithromycin -follow-up blood cultures -urine strep pneumonia and Legionella antigens are both negative Status: Acute (3) Tachycardia: Problem details: EKG from the ED shows P-waves and multiple leads, regular, likely secondary to sepsis Repeat EKG to rule out AFib Ordered cardiac monitoring Normal troponins Echocardiogram 03/06/2024 demonstrates normal LV size with moderately increased LV wall thickness and normal EF of 60-65%. Normal RV chamber size and function. Severely enlarged left atrium. Inferior vena cava consistent with elevated right atrial pressure. Status: Acute (4) Atrial fibrillation with rapid ventricular response: Problem details: -unable to achieve rate control with initial IV metoprolol and IV diltiazem boluses. -transferred to CCU status. -initiated IV diltiazem drip. Added oral diltiazem. -increased dose of oral diltiazem and oral metoprolol in addition to dig loading patient yesterday. Digoxin level 03/07/2024 is 0.4. -serial EKGs, trop I. -initiate anticoagulation with apixaban 5 mg p.o. b.i.d. -continue to monitor closely and may need to see cardiology consultation about possible amiodarone use if we do not achieve sufficient rate control soon Status: Acute (5) Acute respiratory failure with hypoxia: Problem details: -continue with low-flow oxygen support as needed -suspect this is multifactorial from community-acquired pneumonia as well as evolving pulmonary edema -added furosemide IV and monitor response Status: Acute (6) Elevated lactic acid level: Problem details: lactate was initially elevated at 3.1 and later normalized Trend lactate Status: Acute (7) Transaminitis: Problem details: -mild elevation, chronic as patient had transaminitis couple of years ago -likely secondary to SILVA but patient will need outpatient liver workup Status: Acute (8) Type 2 diabetes mellitus: Problem details: -ordered insulin glargine 10 units q.h.s. -ordered low-dose insulin sliding scale -last hemoglobin A1c was 6.4 Status: Acute (9) Seizure disorder: Problem details: Patient does not know her home meds, but she took them today morning Will need medication reconciliation with pharmacy help and then resume anti seizure medication Patient states that she has controlled her last seizure was long time ago (years) Status: Acute (10) Morbid obesity: Problem details: -were some risk factor for obesity associated hypoventilation syndrome -venous blood gas monitoring Status: Acute (11) Acute hyponatremia: Problem details: -Labs initially demonstrated sodium of 124. Chest x-ray showed bilateral but she lower lobe interstitial/airspace disease. -hyponatremia likely secondary to pneumonia, will treat pneumonia and monitor sodium levels. A total of 1.5 L of IV fluids was given at the ED. -continue with diuresis efforts and monitor Status: Acute (12) Pulmonary edema: Problem details: -initiated furosemide 20 mg IV then increase the dose to 40 mg IV. Continue to monitor -likely in part due to volume overloaded state from add administration of IV fluids when patient had low blood pressures, in combination with underlying diastolic heart failure Status: Acute (13) Acute diastolic heart failure: Problem details: -due to acute illness, hypertensive heart disease including hypertrophic left ventricle, plus IV fluids utilized to resuscitate and stabilize patient when she was hypotensive -IV furosemide and monitor potassium and magnesium -continue with metoprolol dose titration for AFib RVR -given relatively normal LV function will continue with diltiazem IV and p.o. at this time Status: Acute Plan 1. Reviewed impression and recommendations with patient and 2. Answered their questions 3. They are agreeable to above stated plans and recommendations Time Spent With Patient Total time spent: 50 minutes Subjective Date Seen: 03/08/24 Interval history: Hospital day 4, 03/08/2024. Patient and informed me how they had grandchildren and children visiting and how they were ill. Both and the patient became ill after their family members left the home. Patient's condition has worsened over the last few days and thus she presents to the emergency department yesterday for further assessment and admission. Presently she denies chest heaviness, pressure, tightness, or pain at this time. Denies dyspnea at rest but acknowledges dyspnea with minimal exertion. Continues to have intermittent cough, now intermittently productive of clear to green sputum. Denies palpitations or chest fluttering. Ongoing generalized weakness. More awake. More interest in eating and drinking. Exam Narrative: Exam Narrative: Examined patient in her hospital room a few times today, couple times 's with her. Appears more comfortable and awake today than previously. More interactive. Alert and oriented x3. Cooperative and friendly. With head of bed elevated at 60?, still has hepatojugular reflux. Upper airway sounds that clear with deep coughing and clearing of throat of sputum. Decreased breath sounds in lower lobes. Left greater than right end inspiratory rales. Heart tones chaotic. Abdomen obese. Only mild edema in upper and lower extremities. No focal motor neurologic deficits. Const: Vital Signs, click to edit/add: Vital Signs - 24 hr 03/07/24 14:45 03/07/24 14:46 03/07/24 14:47 Temperature Pulse Rate 115 H 116 H Pulse Rate [Pulse Oximeter] Respiratory Rate Blood Pressure 119/67 119/67 Pulse Oximetry 91 92 Oxygen Delivery Me thod Nasal Cannula Nasal Cannula Nasal Cannula Oxygen Flow Rate 2 2 2 03/07/24 14:54 03/07/24 15:00 03/07/24 15:00 Temperature Pulse Rate 119 H Pulse Rate [Pulse Oximeter] Respiratory Rate 22 22 Blood Pressure Pulse Oximetry 90 93 93 Oxygen Delivery Me thod Nasal Cannula Nasal Cannula Nasal Cannula Oxygen Flow Rate 2 3 2 03/07/24 15:01 03/07/24 15:02 03/07/24 15:15 Temperature Pulse Rate 126 H 123 H 105 H Pulse Rate [Pulse Oximeter] Respiratory Rate Blood Pressure 132/93 H Pulse Oximetry 92 88 Oxygen Delivery Me thod Nasal Cannula Nasal Cannula Oxygen Flow Rate 2 2 03/07/24 15:17 03/07/24 15:30 03/07/24 15:33 Temperature Pulse Rate 114 H 111 H 115 H Pulse Rate [Pulse Oximeter] Respiratory Rate Blood Pressure 129/72 105/74 Pulse Oximetry 88 88 89 Oxygen Delivery Me thod Nasal Cannula Oxygen Flow Rate 2 2 2 03/07/24 15:35 03/07/24 15:45 03/07/24 15:47 Temperature Pulse Rate 98 123 H Pulse Rate [Pulse Oximeter] 124 H Respiratory Rate 22 Blood Pressure 99/73 Pulse Oximetry 89 89 Oxygen Delivery Me thod Oxygen Flow Rate 2 2 03/07/24 15:48 03/07/24 16:00 03/07/24 16:01 Temperature Pulse Rate 107 H 98 114 H Pulse Rate [Pulse Oximeter] Respiratory Rate Blood Pressure 101/63 Pulse Oximetry 91 93 92 Oxygen Delivery Me thod Oxygen Flow Rate 3 3 03/07/24 16:02 03/07/24 16:15 03/07/24 16:17 Temperature Pulse Rate 112 H 129 H 114 H Pulse Rate [Pulse Oximeter] Respiratory Rate Blood Pressure 125/79 Pulse Oximetry 94 95 93 Oxygen Delivery Me thod Oxygen Flow Rate 3 3 3 03/07/24 16:18 03/07/24 16:30 03/07/24 16:32 Temperature 207.9 F H Pulse Rate 110 H 115 H 117 H Pulse Rate [Pulse Oximeter] Respiratory Rate Blood Pressure 113/62 Pulse Oximetry 95 93 93 Oxygen Delivery Me thod Oxygen Flow Rate 3 3 3 03/07/24 16:45 03/07/24 16:47 03/07/24 16:48 Temperature Pulse Rate 106 H 104 H 102 H Pulse Rate [Pulse Oximeter] Respiratory Rate Blood Pressure 122/72 Pulse Oximetry 93 93 94 Oxygen Delivery Me thod Oxygen Flow Rate 3 03/07/24 17:00 03/07/24 17:02 03/07/24 17:03 Temperature Pulse Rate 105 H 93 119 H Pulse Rate [Pulse Oximeter] Respiratory Rate Blood Pressure 120/74 Pulse Oximetry 94 94 95 Oxygen Delivery Me thod Oxygen Flow Rate 3 03/07/24 17:15 03/07/24 17:18 03/07/24 17:30 Temperature Pulse Rate 95 102 H 105 H Pulse Rate [Pulse Oximeter] Respiratory Rate Blood Pressure 132/83 Pulse Oximetry 94 95 96 Oxygen Delivery Me thod Oxygen Flow Rate 03/07/24 17:32 03/07/24 17:33 03/07/24 17:45 Temperature Pulse Rate 102 H 101 H 106 H Pulse Rate [Pulse Oximeter] Respiratory Rate Blood Pressure 134/67 Pulse Oximetry 93 94 95 Oxygen Delivery Me thod Oxygen Flow Rate 03/07/24 17:47 03/07/24 18:00 03/07/24 18:02 Temperature Pulse Rate 98 102 H 95 Pulse Rate [Pulse Oximeter] Respiratory Rate Blood Pressure 127/80 102/82 Pulse Oximetry 93 94 93 Oxygen Delivery Me thod Oxygen Flow Rate 3 03/07/24 18:04 03/07/24 18:15 03/07/24 18:17 Temperature Pulse Rate 99 94 90 Pulse Rate [Pulse Oximeter] Respiratory Rate Blood Pressure 118/72 Pulse Oximetry 96 96 95 Oxygen Delivery Me thod Oxygen Flow Rate 03/07/24 18:30 03/07/24 18:32 03/07/24 18:33 Temperature Pulse Rate 102 H 108 H 95 Pulse Rate [Pulse Oximeter] Respiratory Rate Blood Pressure 123/66 Pulse Oximetry 92 95 95 Oxygen Delivery Me thod Oxygen Flow Rate 03/07/24 18:45 03/07/24 18:47 03/07/24 18:48 Temperature Pulse Rate 88 105 H 87 Pulse Rate [Pulse Oximeter] Respiratory Rate Blood Pressure 122/75 Pulse Oximetry 94 93 94 Oxygen Delivery Me thod Oxygen Flow Rate 3 03/07/24 19:00 03/07/24 19:02 03/07/24 19:03 Temperature Pulse Rate 103 H 110 H 110 H Pulse Rate [Pulse Oximeter] Respiratory Rate Blood Pressure 119/61 Pulse Oximetry 94 92 94 Oxygen Delivery Me thod Oxygen Flow Rate 03/07/24 19:15 03/07/24 19:17 03/07/24 19:30 Temperature Pulse Rate 95 93 94 Pulse Rate [Pulse Oximeter] Respiratory Rate Blood Pressure 116/78 Pulse Oximetry 95 94 94 Oxygen Delivery Me thod Oxygen Flow Rate 03/07/24 19:32 03/07/24 19:33 03/07/24 19:45 Temperature Pulse Rate 91 106 H 97 Pulse Rate [Pulse Oximeter] Respiratory Rate Blood Pressure 121/68 Pulse Oximetry 92 93 94 Oxygen Delivery Me thod Oxygen Flow Rate 03/07/24 19:47 03/07/24 20:00 03/07/24 20:00 Temperature Pulse Rate 100 107 H 102 H Pulse Rate [Pulse Oximeter] Respiratory Rate Blood Pressure 107/91 H Pulse Oximetry 94 95 Oxygen Delivery Me thod Oxygen Flow Rate 03/07/24 20:01 03/07/24 20:15 03/07/24 20:18 Temperature Pulse Rate 110 H 103 H 104 H Pulse Rate [Pulse Oximeter] Respiratory Rate Blood Pressure 132/84 113/62 Pulse Oximetry 93 96 94 Oxygen Delivery Me thod Oxygen Flow Rate 03/07/24 20:19 03/07/24 20:30 03/07/24 20:45 Temperature 96.5 F L Pulse Rate 95 105 H 105 H Pulse Rate [Pulse Oximeter] Respiratory Rate 20 20 Blood Pressure Pulse Oximetry 94 96 96 Oxygen Delivery Me thod Oxygen Flow Rate 03/07/24 20:47 03/07/24 21:00 03/07/24 21:02 Temperature Pulse Rate 118 H 98 109 H Pulse Rate [Pulse Oximeter] Respiratory Rate Blood Pressure 123/90 H 115/66 Pulse Oximetry 96 94 95 Oxygen Delivery Me thod Oxygen Flow Rate 03/07/24 21:15 03/07/24 21:17 03/07/24 21:30 Temperature Pulse Rate 102 H 110 H 116 H Pulse Rate [Pulse Oximeter] Respiratory Rate Blood Pressure 118/61 Pulse Oximetry 90 92 96 Oxygen Delivery Me thod Oxygen Flow Rate 03/07/24 21:32 03/07/24 21:33 03/07/24 21:45 Temperature Pulse Rate 107 H 115 H 117 H Pulse Rate [Pulse Oximeter] Respiratory Rate Blood Pressure 120/105 H Pulse Oximetry 96 96 96 Oxygen Delivery Me thod Oxygen Flow Rate 03/07/24 21:47 03/07/24 22:00 03/07/24 22:02 Temperature Pulse Rate 108 H 117 H 101 H Pulse Rate [Pulse Oximeter] Respiratory Rate Blood Pressure 118/79 127/74 Pulse Oximetry 96 95 96 Oxygen Delivery Me thod Oxygen Flow Rate 03/07/24 22:15 03/07/24 22:17 03/07/24 22:30 Temperature Pulse Rate 114 H 100 113 H Pulse Rate [Pulse Oximeter] Respiratory Rate Blood Pressure 125/69 Pulse Oximetry 96 96 96 Oxygen Delivery Me thod Oxygen Flow Rate 03/07/24 22:34 03/07/24 22:45 03/07/24 22:48 Temperature Pulse Rate 118 H 109 H 116 H Pulse Rate [Pulse Oximeter] Respiratory Rate Blood Pressure 145/68 H Pulse Oximetry 94 96 96 Oxygen Delivery Me thod Oxygen Flow Rate 03/07/24 23:00 03/07/24 23:02 03/07/24 23:15 Temperature Pulse Rate 110 H 109 H 103 H Pulse Rate [Pulse Oximeter] Respiratory Rate Blood Pressure 134/68 Pulse Oximetry 96 94 95 Oxygen Delivery Me thod Oxygen Flow Rate 03/07/24 23:18 03/07/24 23:30 03/07/24 23:32 Temperature Pulse Rate 95 108 H 106 H Pulse Rate [Pulse Oximeter] Respiratory Rate Blood Pressure 114/59 L 114/56 L Pulse Oximetry 95 95 95 Oxygen Delivery Me thod Oxygen Flow Rate 03/07/24 23:45 03/07/24 23:47 03/07/24 23:48 Temperature Pulse Rate 102 H 93 91 Pulse Rate [Pulse Oximeter] Respiratory Rate Blood Pressure 111/80 Pulse Oximetry 95 94 93 Oxygen Delivery Me thod Oxygen Flow Rate 03/07/24 23:59 03/08/24 00:00 03/08/24 00:02 Temperature Pulse Rate 100 102 H Pulse Rate [Pulse Oximeter] Respiratory Rate Blood Pressure 104/63 Pulse Oximetry 94 96 Oxygen Delivery Me thod Nasal Cannula Oxygen Flow Rate 3 03/08/24 00:02 03/08/24 00:02 03/08/24 00:15 Temperature Pulse Rate 102 H 102 H 96 Pulse Rate [Pulse Oximeter] Respiratory Rate Blood Pressure 104/63 104/63 Pulse Oximetry 96 96 94 Oxygen Delivery Me thod Oxygen Flow Rate 03/08/24 00:17 03/08/24 00:30 03/08/24 00:32 Temperature Pulse Rate 103 H 100 102 H Pulse Rate [Pulse Oximeter] Respiratory Rate Blood Pressure 103/50 L 112/62 Pulse Oximetry 94 95 92 Oxygen Delivery Me thod Oxygen Flow Rate 03/08/24 00:45 03/08/24 00:47 03/08/24 01:00 Temperature Pulse Rate 106 H 98 108 H Pulse Rate [Pulse Oximeter] Respiratory Rate Blood Pressure 117/83 Pulse Oximetry 94 95 94 Oxygen Delivery Me thod Oxygen Flow Rate 03/08/24 01:02 03/08/24 01:15 03/08/24 01:17 Temperature Pulse Rate 107 H 93 98 Pulse Rate [Pulse Oximeter] Respiratory Rate Blood Pressure 124/113 H 126/57 L Pulse Oximetry 94 94 91 Oxygen Delivery Me thod Oxygen Flow Rate 03/08/24 01:30 03/08/24 01:33 03/08/24 01:45 Temperature Pulse Rate 99 104 H 94 Pulse Rate [Pulse Oximeter] Respiratory Rate Blood Pressure 123/58 L Pulse Oximetry 94 97 93 Oxygen Delivery Me thod Oxygen Flow Rate 03/08/24 01:47 03/08/24 02:00 03/08/24 02:02 Temperature Pulse Rate 94 106 H 107 H Pulse Rate [Pulse Oximeter] Respiratory Rate Blood Pressure 100/67 111/79 Pulse Oximetry 94 94 94 Oxygen Delivery Me thod Oxygen Flow Rate 03/08/24 02:15 03/08/24 02:18 03/08/24 02:30 Temperature Pulse Rate 107 H 101 H 104 H Pulse Rate [Pulse Oximeter] Respiratory Rate Blood Pressure 122/70 Pulse Oximetry 96 93 94 Oxygen Delivery Me thod Oxygen Flow Rate 03/08/24 02:33 03/08/24 02:45 03/08/24 02:47 Temperature Pulse Rate 103 H 97 109 H Pulse Rate [Pulse Oximeter] Respiratory Rate Blood Pressure 138/60 126/75 Pulse Oximetry 95 93 94 Oxygen Delivery Me thod Oxygen Flow Rate 03/08/24 03:00 03/08/24 03:05 03/08/24 03:15 Temperature Pulse Rate 104 H 109 H 123 H Pulse Rate [Pulse Oximeter] Respiratory Rate Blood Pressure 142/72 H Pulse Oximetry 91 93 95 Oxygen Delivery Me thod Oxygen Flow Rate 03/08/24 03:18 03/08/24 03:19 03/08/24 03:30 Temperature Pulse Rate 121 H 122 H 122 H Pulse Rate [Pulse Oximeter] Respiratory Rate Blood Pressure 142/77 H Pulse Oximetry 95 95 Oxygen Delivery Me thod Oxygen Flow Rate 03/08/24 03:30 03/08/24 03:33 03/08/24 03:34 Temperature Pulse Rate 123 H 110 H 119 H Pulse Rate [Pulse Oximeter] Respiratory Rate Blood Pressure 125/78 Pulse Oximetry 95 94 94 Oxygen Delivery Me thod Oxygen Flow Rate 03/08/24 03:45 03/08/24 03:47 03/08/24 04:00 Temperature Pulse Rate 112 H 108 H 107 H Pulse Rate [Pulse Oximeter] Respiratory Rate Blood Pressure 135/92 H Pulse Oximetry 94 94 93 Oxygen Delivery Me thod Oxygen Flow Rate 03/08/24 04:05 03/08/24 04:15 03/08/24 04:17 Temperature Pulse Rate 110 H 105 H 116 H Pulse Rate [Pulse Oximeter] Respiratory Rate Blood Pressure 130/83 131/81 Pulse Oximetry 94 93 92 Oxygen Delivery Me thod Oxygen Flow Rate 03/08/24 04:30 03/08/24 04:33 03/08/24 04:45 Temperature Pulse Rate 105 H 104 H 120 H Pulse Rate [Pulse Oximeter] Respiratory Rate Blood Pressure 135/71 Pulse Oximetry 95 93 96 Oxygen Delivery Me thod Oxygen Flow Rate 03/08/24 04:47 03/08/24 05:00 03/08/24 05:02 Temperature Pulse Rate 110 H 113 H 125 H Pulse Rate [Pulse Oximeter] Respiratory Rate Blood Pressure 134/96 H 123/91 H Pulse Oximetry 94 93 93 Oxygen Delivery Me thod Oxygen Flow Rate 03/08/24 05:03 03/08/24 05:15 03/08/24 05:17 Temperature Pulse Rate 109 H 123 H 111 H Pulse Rate [Pulse Oximeter] Respiratory Rate Blood Pressure 135/75 Pulse Oximetry 94 90 92 Oxygen Delivery Me thod Oxygen Flow Rate 03/08/24 05:30 03/08/24 05:32 03/08/24 05:45 Temperature Pulse Rate 109 H 105 H 123 H Pulse Rate [Pulse Oximeter] Respiratory Rate Blood Pressure 145/97 H Pulse Oximetry 92 93 94 Oxygen Delivery Me thod Oxygen Flow Rate 03/08/24 05:49 03/08/24 06:00 03/08/24 06:06 Temperature Pulse Rate 128 H 123 H 133 H Pulse Rate [Pulse Oximeter] Respiratory Rate Blood Pressure 126/88 Pulse Oximetry 94 95 93 Oxygen Delivery Me thod Oxygen Flow Rate 03/08/24 06:15 03/08/24 06:20 03/08/24 06:30 Temperature Pulse Rate 122 H 115 H 109 H Pulse Rate [Pulse Oximeter] Respiratory Rate Blood Pressure 150/75 H Pulse Oximetry 94 93 95 Oxygen Delivery Me thod Oxygen Flow Rate 03/08/24 06:32 03/08/24 06:33 03/08/24 06:45 Temperature Pulse Rate 111 H 136 H 107 H Pulse Rate [Pulse Oximeter] Respiratory Rate Blood Pressure 123/78 Pulse Oximetry 91 94 95 Oxygen Delivery Me thod Oxygen Flow Rate 03/08/24 06:47 03/08/24 07:00 03/08/24 07:00 Temperature Pulse Rate 131 H 111 H 114 H Pulse Rate [Pulse Oximeter] Respiratory Rate Blood Pressure 128/81 Pulse Oximetry 93 94 Oxygen Delivery Me thod Oxygen Flow Rate 03/08/24 07:02 03/08/24 07:15 03/08/24 07:17 Temperature Pulse Rate 126 H 107 H 112 H Pulse Rate [Pulse Oximeter] Respiratory Rate Blood Pressure 132/78 139/83 Pulse Oximetry 90 92 91 Oxygen Delivery Me thod Oxygen Flow Rate 03/08/24 07:18 03/08/24 07:22 03/08/24 07:30 Temperature Pulse Rate 119 H 109 H Pulse Rate [Pulse Oximeter] 114 H Respiratory Rate 22 Blood Pressure Pulse Oximetry 93 92 Oxygen Delivery Me thod Oxygen Flow Rate 03/08/24 07:32 03/08/24 07:33 03/08/24 07:45 Temperature Pulse Rate 116 H 110 H 111 H Pulse Rate [Pulse Oximeter] Respiratory Rate Blood Pressure 125/84 Pulse Oximetry 92 91 94 Oxygen Delivery Me thod Oxygen Flow Rate 03/08/24 07:47 03/08/24 07:48 03/08/24 07:51 Temperature Pulse Rate 115 H 117 H 115 H Pulse Rate [Pulse Oximeter] Respiratory Rate Blood Pressure 133/81 Pulse Oximetry 94 94 Oxygen Delivery Me thod Oxygen Flow Rate 03/08/24 08:00 03/08/24 08:03 03/08/24 08:04 Temperature 97.7 F Pulse Rate 115 H 117 H 115 H Pulse Rate [Pulse Oximeter] Respiratory Rate 22 Blood Pressure 128/89 Pulse Oximetry 95 94 94 Oxygen Delivery Me thod Oxygen Flow Rate 3 03/08/24 08:05 03/08/24 08:15 03/08/24 08:17 Temperature Pulse Rate 116 H 125 H Pulse Rate [Pulse Oximeter] Respiratory Rate 22 Blood Pressure 125/106 H Pulse Oximetry 94 95 94 Oxygen Delivery Me thod Nasal Cannula Oxygen Flow Rate 3 03/08/24 08:30 03/08/24 08:34 03/08/24 08:45 Temperature Pulse Rate 117 H 117 H 120 H Pulse Rate [Pulse Oximeter] Respiratory Rate Blood Pressure 115/87 Pulse Oximetry 95 94 96 Oxygen Delivery Me thod Oxygen Flow Rate 03/08/24 09:00 03/08/24 09:03 03/08/24 09:04 Temperature Pulse Rate 130 H 107 H 110 H Pulse Rate [Pulse Oximeter] Respiratory Rate Blood Pressure 141/91 H Pulse Oximetry 95 94 94 Oxygen Delivery Me thod Oxygen Flow Rate 03/08/24 09:15 03/08/24 09:16 03/08/24 09:17 Temperature Pulse Rate 92 104 H 96 Pulse Rate [Pulse Oximeter] Respiratory Rate Blood Pressure 144/93 H Pulse Oximetry 91 92 94 Oxygen Delivery Me thod Oxygen Flow Rate 03/08/24 09:35 03/08/24 09:35 03/08/24 09:45 Temperature Pulse Rate 117 H 103 H 95 Pulse Rate [Pulse Oximeter] Respiratory Rate Blood Pressure 103/83 Pulse Oximetry 95 95 Oxygen Delivery Me thod Oxygen Flow Rate 03/08/24 09:47 03/08/24 09:48 03/08/24 10:00 Temperature Pulse Rate 104 H 155 H 113 H Pulse Rate [Pulse Oximeter] Respiratory Rate Blood Pressure 99/66 Pulse Oximetry 94 92 95 Oxygen Delivery Me thod Oxygen Flow Rate 03/08/24 10:02 03/08/24 10:15 03/08/24 10:16 Temperature 97.4 F L Pulse Rate 132 H 106 H 100 Pulse Rate [Pulse Oximeter] Respiratory Rate 22 Blood Pressure 119/77 119/102 H Pulse Oximetry 94 96 94 Oxygen Delivery Me thod Nasal Cannula Oxygen Flow Rate 3 03/08/24 10:17 03/08/24 10:30 03/08/24 10:32 Temperature Pulse Rate 97 102 H 90 Pulse Rate [Pulse Oximeter] Respiratory Rate Blood Pressure 121/68 Pulse Oximetry 96 96 95 Oxygen Delivery Me thod Oxygen Flow Rate 03/08/24 10:45 03/08/24 10:47 03/08/24 11:00 Temperature Pulse Rate 85 106 H 92 Pulse Rate [Pulse Oximeter] Respiratory Rate Blood Pressure 128/112 H Pulse Oximetry 93 94 93 Oxygen Delivery Me thod Oxygen Flow Rate 03/08/24 11:02 03/08/24 11:03 03/08/24 11:15 Temperature Pulse Rate 102 H 89 111 H Pulse Rate [Pulse Oximeter] Respiratory Rate Blood Pressure 107/66 Pulse Oximetry 94 94 97 Oxygen Delivery Me thod Oxygen Flow Rate 03/08/24 11:16 03/08/24 11:30 03/08/24 11:31 Temperature Pulse Rate 108 H 90 91 Pulse Rate [Pulse Oximeter] Respiratory Rate Blood Pressure 128/71 112/68 Pulse Oximetry 94 95 91 Oxygen Delivery Me thod Oxygen Flow Rate 03/08/24 11:45 03/08/24 11:47 03/08/24 11:48 Temperature Pulse Rate 94 86 86 Pulse Rate [Pulse Oximeter] Respiratory Rate Blood Pressure 101/72 Pulse Oximetry 95 96 96 Oxygen Delivery Me thod Oxygen Flow Rate 3 03/08/24 11:54 03/08/24 12:00 03/08/24 12:03 Temperature Pulse Rate 114 H 119 H 115 H Pulse Rate [Pulse Oximeter] Respiratory Rate Blood Pressure 135/83 Pulse Oximetry 96 95 Oxygen Delivery Me thod Oxygen Flow Rate 03/08/24 12:04 03/08/24 12:12 03/08/24 12:15 Temperature Pulse Rate 121 H 107 H Pulse Rate [Pulse Oximeter] 116 H Respiratory Rate 24 Blood Pressure Pulse Oximetry 95 95 Oxygen Delivery Me thod Oxygen Flow Rate 03/08/24 12:16 03/08/24 12:30 03/08/24 12:33 Temperature Pulse Rate 112 H 107 H 119 H Pulse Rate [Pulse Oximeter] Respiratory Rate Blood Pressure 124/96 H 129/107 H Pulse Oximetry 95 94 90 Oxygen Delivery Me thod Oxygen Flow Rate 03/08/24 12:34 03/08/24 12:45 03/08/24 12:47 Temperature Pulse Rate 122 H 104 H 102 H Pulse Rate [Pulse Oximeter] Respiratory Rate 22 Blood Pressure 125/97 H Pulse Oximetry 94 94 95 Oxygen Delivery Me thod Oxygen Flow Rate 3 03/08/24 12:48 03/08/24 13:00 03/08/24 13:02 Temperature Pulse Rate 115 H 117 H 102 H Pulse Rate [Pulse Oximeter] Respiratory Rate Blood Pressure 114/47 L Pulse Oximetry 94 94 94 Oxygen Delivery Me thod Oxygen Flow Rate 03/08/24 13:03 03/08/24 13:15 03/08/24 13:16 Temperature Pulse Rate 110 H 98 112 H Pulse Rate [Pulse Oximeter] Respiratory Rate Blood Pressure 135/106 H Pulse Oximetry 95 94 91 Oxygen Delivery Me thod Oxygen Flow Rate 03/08/24 13:17 03/08/24 13:30 03/08/24 13:31 Temperature Pulse Rate 110 H 114 H 114 H Pulse Rate [Pulse Oximeter] Respiratory Rate Blood Pressure 129/92 H Pulse Oximetry 94 95 91 Oxygen Delivery Me thod Oxygen Flow Rate 03/08/24 13:45 03/08/24 13:47 03/08/24 14:00 Temperature Pulse Rate 125 H 126 H 121 H Pulse Rate [Pulse Oximeter] Respiratory Rate Blood Pressure 126/85 Pulse Oximetry 94 94 94 Oxygen Delivery Me thod Oxygen Flow Rate 03/08/24 14:01 Temperature Pulse Rate 84 Pulse Rate [Pulse Oximeter] Respiratory Rate Blood Pressure 126/100 H Pulse Oximetry 90 Oxygen Delivery Me thod Oxygen Flow Rate Labs Labs: Laboratory Results - last 24 hr 03/08/24 03/08/24 06:24 07:37 WBC 11.23 H RBC 3.89 L Hgb 12.6 Hct 36.9 MCV 95 MCH 32 MCHC 34 Plt Count 224 VBG pH 7.440 H VBG pCO2 40 VBG pO2 63.6 H VBG HCO3 27 Sodium 127 L Potassium 4.0 Chloride 94 L Carbon Dioxide 27 Anion Gap 6 L BUN 12 Creatinine 0.5 Estimated Creat Clear 40.04 Estimated GFR 96 Glucose 152 H Lactate 1.7 Calcium 8.0 L Phosphorus 3.1 Magnesium 1.8 Troponin I 0.03 C-Reactive Protein 8.7 H NT-Pro-B Natriuret Pep 2610 Procalcitonin 0.08 Digoxin < 0.4 L Lab Acknowledgement Test Added
[2024-03-08] MEDS: dilTIAZem 240 MG CAP (CD) PO (15:05)
[2024-03-08] MEDS: dilTIAZem 120 MG CAP.ER.24H PO (15:05)
[2024-03-08] MEDS: PREGABALIN 50 MG CAPSULE PO ×2 (17:39→22:18)
[2024-03-08] MEDS: 0.9 % SODIUM CHLORIDE 1000 ml 1,000 ML 20 ML IV (17:39)
--- NOTE | 2024-03-08 18:42 | PC.NURSE ---
Pt alert and oriented. Pt had no complaints of pain. Pt up to chair with a ceiling lift. Pt needs assistance with ADL?s and assistance with eating but can assist more with her left arm. Pt has been on diltiazem drip for the whole shift at 3mg/3mL/hour. Oral medications given as well; see EMAR. Pt has consistently maintained heart rates of 110?s-140?s during shift- see chart (Q15min VS). Pt had brief periods where pulses were lower but would not maintain more than a couple of minutes. Pt has been on 3 Liters O2. Pt has mouthpiece for her TOM but has not been wearing it at night or when napping because of her coughing spells. Pt has been diaphoretic during shift, but afebrile. Pt had a bed bath this afternoon with staff total dependence. ?
[2024-03-08] MEDS: ATORVASTATIN 10 MG TABLET 20 MG PO (20:30)
[2024-03-08] MEDS: INSULIN GLARGINE,HUM.REC.ANLOG 100 UNIT/ML INSULN.PEN 10 UNIT SUBCUT (20:31)
[2024-03-08] MEDS: cefTRIAXone 2 GM in 0.9 % SODIUM CHLORIDE Mini-bag 100 ML IVPB (21:40)
[2024-03-08] MEDS: 0.9 % SODIUM CHLORIDE 250 ml IV (21:53)
[2024-03-08] MEDS: AZITHROMYCIN 500 MG in 0.9 % SODIUM CHLORIDE 250 ml 250 ML 255 MG IVPB (23:09)
[2024-03-09] VITALS (138 sets, daily range): BP systolic 99–164; BP diastolic 52–106; PULSE 85–135; RESP 16–22; TEMP 36.2–36.8; O2SAT 87–95
[2024-03-09] MEDS: METOPROLOL TARTRATE 25 MG TABLET PO ×6 (02:14→22:25)
[2024-03-09 06:41] LABS: Lactate* 1.8 mmol/L (0.5-1.9)
[2024-03-09 06:42] LABS: Hematocrit 37.4 % (33.0-51.0); Hemoglobin* 12.6 gm/dL (12.0-16.0); Mean Corpuscular HGB Conc 34 gm/dL (32-36); Mean Corpuscular Hemoglobin 32 pg (26-34); Mean Corpuscular Volume 96 fL (80-100); Platelet Count* 240 K/uL (140-440); White Blood Count* 11.18 K/uL (4.50-11.00)
[2024-03-09 06:45] LABS: HCO3 VBG 28 mmol/L (21-28); PCO2 VBG 42 mmHG (40-50); PO2 VBG 85.8 mmHG (25-47); pH VBG 7.441 (7.32-7.43)
[2024-03-09 06:48] LABS: Slide Review Reflex No
--- NOTE | 2024-03-09 06:50 | PC.NURSE ---
[id number] Pt slept ok during night, repositioned q2-3 hours. 2 BM's during shift, loose, incontinent. tele showing a-fib with RVR, rate low 100's to 120's, occasionally and briefly rate will go below 100 bpm.
[2024-03-09 06:58] LABS: Chloride* 94 mmol/L (96-114); Potassium* 3.9 mmol/L (3.6-5.1); Sodium* 129 mmol/L (135-149)
[2024-03-09 07:01] LABS: Anion Gap 7 mEq/L (7-15); Blood Urea Nitrogen* 11 mg/dL (7-30); Calcium* 8.3 mg/dL (8.4-10.6); Carbon Dioxide* 28 mmol/L (20-32); Creatinine* 0.4 mg/dL (0.5-1.5); Est. Creatinine Clearance* 40.04; Estimated Glomerular Filt Rate 101 ml/min; Glucose* 175 mg/dL (60-115)
[2024-03-09 07:52] LABS: Digoxin* 0.5 ng/mL (0.8-2.0)
[2024-03-09] MEDS: APIXABAN 5 MG TABLET PO ×2 (08:49→20:03)
[2024-03-09] MEDS: BENZONATATE 100 MG CAPSULE 200 MG PO ×3 (08:49→20:03)
[2024-03-09] MEDS: SODIUM CHLORIDE 1 GM TABLET 2 GM PO ×3 (08:50→18:14)
[2024-03-09] MEDS: ASPIRIN 81 MG TAB.CHEW PO (08:50)
[2024-03-09] MEDS: DIGOXIN 250 MCG TABLET PO (08:50)
[2024-03-09] MEDS: DIVALPROEX SODIUM ER TAB 250 MG 750 MG PO ×2 (08:50→20:03)
[2024-03-09] MEDS: PREGABALIN 100 MG CAPSULE PO (08:51)
[2024-03-09] MEDS: PRIMIDONE 50 MG TABLET 250 MG PO (08:51)
[2024-03-09] MEDS: FUROSEMIDE 10 MG/ML inj 40 MG IVP (08:53)
[2024-03-09] MEDS: SODIUM CHLORIDE 0.9 % (FLUSH) 10 ML SYRINGE 5 ML IVF ×2 (08:54→20:05)
[2024-03-09] MEDS: INSULIN ASPART 100 UNIT/ML SUBCUT ×2 (08:54→11:45)
[2024-03-09] MEDS: dilTIAZem HCL 125 MG in 0.9 % SODIUM CHLORIDE 100 ml 100 ML IVPB (11:33)
[2024-03-09] MEDS: dilTIAZem 240 MG CAP (CD) PO (14:28)
[2024-03-09] MEDS: dilTIAZem 120 MG CAP.ER.24H PO (14:28)
--- NOTE | 2024-03-09 15:31 | PM.IMPN1 ---
Progress Note: A&P Assessment and plan (1) Sepsis: Problem details: -At the ED, patient was tachycardic EKG showed sinus tachycardia and a normal troponin. Patient has mild WBC elevation at 11.4, lactate was elevated at 3.1 and CRP elevated at about 7.9. -Treat sepsis, elevated lactic acid, Treat CAP IV Abx + IVF -trend lactate -blood cultures negative to date. Sputum cultures not obtained. Status: Acute (2) Community acquired pneumonia: Problem details: - above -started ceftriaxone and azithromycin. Will stop azithromycin after 5 days. Consider discontinuation of ceftriaxone after 7 days. -follow-up blood cultures -urine strep pneumonia and Legionella antigens are both negative -nasal MRSA swab negative Status: Acute (3) Tachycardia: Problem details: EKG from the ED shows P-waves and multiple leads, regular, likely secondary to sepsis Repeat EKG to rule out AFib Ordered cardiac monitoring Normal troponins Echocardiogram 03/06/2024 demonstrates normal LV size with moderately increased LV wall thickness and normal EF of 60-65%. Normal RV chamber size and function. Severely enlarged left atrium. Inferior vena cava consistent with elevated right atrial pressure. Status: Acute (4) Atrial fibrillation with rapid ventricular response: Problem details: -unable to achieve rate control with initial IV metoprolol and IV diltiazem boluses. -transferred to CCU status. -initiated IV diltiazem drip. Added oral diltiazem. -increased dose of oral diltiazem and oral metoprolol in addition to dig loading patient yesterday. Digoxin level 03/07/2024 is 0.4. -serial EKGs, trop I. -initiate anticoagulation with apixaban 5 mg p.o. b.i.d. -with marked improvement in rate control, will continue current treatment plan. Will change the diltiazem CD dose from 360 mg to 180 mg q.12 hours. Decrease diltiazem drip from 3 milligrams/hour to 2 milligrams/hour. Strive to turn off the diltiazem drip if able to maintain heart rates at rest less than 100 for several hours. -digoxin trough level 0.5 morning of 03/09/2024. Continue current dose of 0.25 mg once daily. -oral metoprolol doses 20 mg q.4 hours at this time. Consider changing to metoprolol succinate 75 mg twice daily. Status: Acute (5) Acute respiratory failure with hypoxia: Problem details: -continue with low-flow oxygen support as needed -suspect this is multifactorial from community-acquired pneumonia as well as evolving pulmonary edema -added furosemide IV and monitor response. Will consider changing to equivalent dosing of oral torsemide when appropriate. Status: Acute (6) Elevated lactic acid level: Problem details: lactate was initially elevated at 3.1 and later normalized Trend lactate Status: Acute (7) Transaminitis: Problem details: -mild elevation, chronic as patient had transaminitis couple of years ago -likely secondary to SILVA but patient will need outpatient liver workup Status: Acute (8) Type 2 diabetes mellitus: Problem details: -ordered insulin glargine 10 units q.h.s. -ordered low-dose insulin sliding scale -last hemoglobin A1c was 6.4 Status: Acute (9) Seizure disorder: Problem details: Patient does not know her home meds, but she took them today morning Will need medication reconciliation with pharmacy help and then resume anti seizure medication Patient states that she has controlled her last seizure was long time ago (years) -I asked our pharmacist to help us with various drug-drug interactions and will continue to monitor this. Status: Acute (10) Morbid obesity: Problem details: -were some risk factor for obesity associated hypoventilation syndrome -venous blood gas monitoring Status: Acute (11) Acute hyponatremia: Problem details: -Labs initially demonstrated sodium of 124. Chest x-ray showed bilateral but she lower lobe interstitial/airspace disease. -hyponatremia likely secondary to pneumonia, will treat pneumonia and monitor sodium levels. A total of 1.5 L of IV fluids was given at the ED. -continue with diuresis efforts and monitor Status: Acute (12) Pulmonary edema: Problem details: -initiated furosemide 20 mg IV then increase the dose to 40 mg IV. Continue to monitor -likely in part due to volume overloaded state from add administration of IV fluids when patient had low blood pressures, in combination with underlying diastolic heart failure Status: Acute (13) Acute diastolic heart failure: Problem details: -due to acute illness, hypertensive heart disease including hypertrophic left ventricle, plus IV fluids utilized to resuscitate and stabilize patient when she was hypotensive -IV furosemide and monitor potassium and magnesium -continue with metoprolol dose titration for AFib RVR -given relatively normal LV function will continue with diltiazem IV and p.o. at this time Status: Acute (14) Polypharmacy: Problem details: -our pharmacists is helping us sort through this at this time Status: Acute (15) Physical debility: Problem details: -acute on chronic -continue with physical therapy and occupational therapy support while in hospital -consider TCU short-term rehab post hospitalization before considering safely returning home. Patient and are agreeable at this time. Status: Acute Plan 1. Reviewed impression with patient and 2. Discussed ongoing treatment plans and recommendations with them 3. Answered their questions 4. They are agreeable with above stated plans and recommendations Time Spent With Patient Total time spent: 50 minutes Subjective Date Seen: 03/09/24 Interval history: Hospital day 5, 03/09/2024. Patient and informed me how they had grandchildren and children visiting and how they were ill. Both and the patient became ill after their family members left the home. Patient's condition has worsened over the last few days and thus she presents to the emergency department yesterday for further assessment and admission. She continues to deny chest heaviness, pressure, tightness, or pain at this time. Denies dyspnea at rest but acknowledges dyspnea with minimal exertion. Continues to have intermittent cough, now intermittently productive of clear to green sputum. Denies palpitations or chest fluttering. Ongoing generalized weakness. More awake. More interest in eating and drinking. Tolerating increased activity today with nursing staff and therapy staff. Exam Narrative: Exam Narrative: Heart rates better controlled today. Resting heart rates as low as 80. Exertional heart rates still as high as 03/17/2029. Still on diltiazem drip of to mg per hour. Ongoing dose modifications of the medications and progress with intent of stopping the diltiazem drip. I examine her in her hospital room and she appears comfortable no acute distress. Early in the morning her is not in the room when I examine her. Later in the day her is in the room when I examine her. More interactive. Alert and oriented x3. Lungs with scattered rhonchi and less end inspiratory rales. Heart tones are chaotic and less tachycardic. Abdomen is obese with active bowel sounds, soft. Trace edema upper extremities lower extremities not new. No focal motor neurologic deficits. Tolerating transfers with therapy. Weight today 132.6 kg compared to 133.5 kg yesterday. Responding to diuresis efforts. On admission weight was 132.9 kg. Const: Vital Signs, click to edit/add: Vital Signs - 24 hr 03/08/24 15:32 03/08/24 15:45 03/08/24 15:47 Temperature Pulse Rate 115 H 108 H 119 H Respiratory Rate Blood Pressure 130/92 H Pulse Oximetry 94 94 94 Oxygen Delivery Me thod Oxygen Flow Rate 03/08/24 15:48 03/08/24 16:00 03/08/24 16:01 Temperature Pulse Rate 109 H 101 H 108 H Respiratory Rate Blood Pressure 137/85 Pulse Oximetry 94 92 91 Oxygen Delivery Me thod Oxygen Flow Rate 03/08/24 16:02 03/08/24 16:15 03/08/24 16:16 Temperature 97.6 F Pulse Rate 118 H 93 119 H Respiratory Rate 20 Blood Pressure 128/73 Pulse Oximetry 92 94 92 Oxygen Delivery Me thod Oxygen Flow Rate 3 03/08/24 16:17 03/08/24 16:30 03/08/24 16:31 Temperature Pulse Rate 98 94 114 H Respiratory Rate Blood Pressure 127/86 Pulse Oximetry 94 95 93 Oxygen Delivery Me thod Oxygen Flow Rate 03/08/24 16:32 03/08/24 16:45 03/08/24 16:47 Temperature Pulse Rate 101 H 121 H 98 Respiratory Rate Blood Pressure 122/87 Pulse Oximetry 93 93 94 Oxygen Delivery Me thod Oxygen Flow Rate 03/08/24 17:00 03/08/24 17:01 03/08/24 17:02 Temperature Pulse Rate 116 H 113 H 123 H Respiratory Rate Blood Pressure 123/103 H Pulse Oximetry 94 94 94 Oxygen Delivery Me thod Oxygen Flow Rate 3 03/08/24 17:15 03/08/24 17:16 03/08/24 17:17 Temperature Pulse Rate 117 H 119 H 125 H Respiratory Rate Blood Pressure 138/87 Pulse Oximetry 95 92 95 Oxygen Delivery Me thod Oxygen Flow Rate 03/08/24 17:30 03/08/24 17:31 03/08/24 17:45 Temperature Pulse Rate 108 H 110 H 103 H Respiratory Rate Blood Pressure 133/97 H Pulse Oximetry 93 93 96 Oxygen Delivery Me thod Oxygen Flow Rate 03/08/24 17:46 03/08/24 18:00 03/08/24 18:03 Temperature Pulse Rate 102 H 115 H 98 Respiratory Rate Blood Pressure 119/93 H 151/98 H Pulse Oximetry 92 95 92 Oxygen Delivery Me thod Oxygen Flow Rate 03/08/24 18:04 03/08/24 18:15 03/08/24 18:17 Temperature 97.4 F L Pulse Rate 116 H 128 H 118 H Respiratory Rate 22 Blood Pressure 138/78 Pulse Oximetry 95 94 95 Oxygen Delivery Me thod Oxygen Flow Rate 3 03/08/24 18:18 03/08/24 18:30 03/08/24 18:32 Temperature Pulse Rate 107 H 107 H 115 H Respiratory Rate Blood Pressure 144/83 H Pulse Oximetry 94 93 93 Oxygen Delivery Me thod Oxygen Flow Rate 3 03/08/24 18:33 03/08/24 18:45 03/08/24 18:47 Temperature Pulse Rate 107 H 108 H 104 H Respiratory Rate Blood Pressure 138/81 Pulse Oximetry 93 93 93 Oxygen Delivery Me thod Oxygen Flow Rate 3 03/08/24 18:48 03/08/24 19:00 03/08/24 19:02 Temperature Pulse Rate 105 H 104 H 99 Respiratory Rate Blood Pressure 119/91 H Pulse Oximetry 94 93 93 Oxygen Delivery Me thod Oxygen Flow Rate 03/08/24 19:02 03/08/24 19:03 03/08/24 19:15 Temperature Pulse Rate 99 100 105 H Respiratory Rate Blood Pressure 119/91 H Pulse Oximetry 93 93 93 Oxygen Delivery Me thod Oxygen Flow Rate 3 03/08/24 19:16 03/08/24 19:17 03/08/24 19:30 Temperature Pulse Rate 107 H 114 H 117 H Respiratory Rate Blood Pressure 113/101 H Pulse Oximetry 93 94 95 Oxygen Delivery Me thod Oxygen Flow Rate 03/08/24 19:31 03/08/24 19:32 03/08/24 19:43 Temperature Pulse Rate 114 H 99 96 Respiratory Rate Blood Pressure 119/66 Pulse Oximetry 94 95 Oxygen Delivery Me thod Oxygen Flow Rate 03/08/24 19:45 03/08/24 19:47 03/08/24 20:00 Temperature Pulse Rate 102 H 120 H 101 H Respiratory Rate Blood Pressure 115/68 Pulse Oximetry 95 93 95 Oxygen Delivery Me thod Oxygen Flow Rate 03/08/24 20:00 03/08/24 20:02 03/08/24 20:03 Temperature Pulse Rate 113 H 108 H Respiratory Rate 22 Blood Pressure 122/70 Pulse Oximetry 95 94 Oxygen Delivery Me thod Oxygen Flow Rate 03/08/24 20:15 03/08/24 20:17 03/08/24 20:18 Temperature Pulse Rate 116 H 118 H 112 H Respiratory Rate Blood Pressure 141/83 H Pulse Oximetry 93 95 95 Oxygen Delivery Me thod Oxygen Flow Rate 03/08/24 20:30 03/08/24 20:32 03/08/24 20:45 Temperature Pulse Rate 116 H 95 108 H Respiratory Rate Blood Pressure 136/80 Pulse Oximetry 94 93 93 Oxygen Delivery Me thod Oxygen Flow Rate 03/08/24 20:47 03/08/24 21:00 03/08/24 21:02 Temperature Pulse Rate 116 H 109 H 110 H Respiratory Rate Blood Pressure 137/64 136/73 Pulse Oximetry 94 92 93 Oxygen Delivery Me thod Oxygen Flow Rate 03/08/24 21:03 03/08/24 21:15 03/08/24 21:17 Temperature Pulse Rate 107 H 115 H 107 H Respiratory Rate Blood Pressure 130/79 Pulse Oximetry 94 94 92 Oxygen Delivery Me thod Oxygen Flow Rate 03/08/24 21:30 03/08/24 21:32 03/08/24 21:33 Temperature Pulse Rate 116 H 121 H 102 H Respiratory Rate Blood Pressure 155/74 H Pulse Oximetry 93 93 94 Oxygen Delivery Me thod Oxygen Flow Rate 03/08/24 21:45 03/08/24 21:47 03/08/24 21:48 Temperature Pulse Rate 99 125 H 128 H Respiratory Rate Blood Pressure 137/86 Pulse Oximetry 92 94 92 Oxygen Delivery Me thod Oxygen Flow Rate 03/08/24 22:00 03/08/24 22:02 03/08/24 22:03 Temperature Pulse Rate 116 H 106 H 110 H Respiratory Rate Blood Pressure 147/80 H Pulse Oximetry 92 92 92 Oxygen Delivery Me thod Oxygen Flow Rate 03/08/24 22:15 03/08/24 22:16 03/08/24 22:30 Temperature Pulse Rate 104 H 104 H 126 H Respiratory Rate Blood Pressure 144/81 H Pulse Oximetry 93 90 94 Oxygen Delivery Me thod Oxygen Flow Rate 03/08/24 22:31 03/08/24 22:45 03/08/24 22:47 Temperature Pulse Rate 129 H 109 H 118 H Respiratory Rate Blood Pressure 153/87 H 139/93 H Pulse Oximetry 92 92 93 Oxygen Delivery Me thod Oxygen Flow Rate 03/08/24 22:48 03/08/24 22:55 03/08/24 22:55 Temperature 97.9 F Pulse Rate 121 H 116 H Respiratory Rate 20 22 Blood Pressure 139/93 H Pulse Oximetry 92 92 93 Oxygen Delivery Me thod Room Air Room Air Nasal Can nula Oxygen Flow Rate 03/08/24 23:00 03/08/24 23:02 03/08/24 23:15 Temperature Pulse Rate 102 H 109 H 109 H Respiratory Rate Blood Pressure 131/80 Pulse Oximetry 92 91 92 Oxygen Delivery Me thod Oxygen Flow Rate 03/08/24 23:16 03/08/24 23:17 03/08/24 23:21 Temperature Pulse Rate 105 H 98 87 Respiratory Rate Blood Pressure 153/71 H Pulse Oximetry 90 90 Oxygen Delivery Me thod Oxygen Flow Rate 03/08/24 23:30 03/08/24 23:31 03/08/24 23:45 Temperature Pulse Rate 94 112 H 101 H Respiratory Rate Blood Pressure 141/73 H Pulse Oximetry 91 88 91 Oxygen Delivery Me thod Oxygen Flow Rate 03/08/24 23:47 03/09/24 00:00 03/09/24 00:00 Temperature Pulse Rate 104 H 94 Respiratory Rate 22 Blood Pressure 124/70 Pulse Oximetry 91 92 Oxygen Delivery Me thod Oxygen Flow Rate 03/09/24 00:02 03/09/24 00:02 03/09/24 00:02 Temperature Pulse Rate 95 95 95 Respiratory Rate Blood Pressure 123/67 123/67 123/67 Pulse Oximetry 91 91 91 Oxygen Delivery Me thod Oxygen Flow Rate 03/09/24 00:03 03/09/24 00:15 03/09/24 00:16 Temperature Pulse Rate 94 85 91 Respiratory Rate Blood Pressure 119/75 Pulse Oximetry 91 92 90 Oxygen Delivery Me thod Oxygen Flow Rate 03/09/24 00:30 03/09/24 00:31 03/09/24 00:32 Temperature Pulse Rate 92 107 H 97 Respiratory Rate Blood Pressure 125/100 H Pulse Oximetry 91 91 93 Oxygen Delivery Me thod Oxygen Flow Rate 03/09/24 00:45 03/09/24 00:46 03/09/24 01:00 Temperature Pulse Rate 113 H 108 H 109 H Respiratory Rate Blood Pressure 132/87 Pulse Oximetry 91 90 91 Oxygen Delivery Me thod Oxygen Flow Rate 03/09/24 01:01 03/09/24 01:02 03/09/24 01:15 Temperature Pulse Rate 109 H 102 H 106 H Respiratory Rate Blood Pressure 146/68 H Pulse Oximetry 89 92 91 Oxygen Delivery Me thod Oxygen Flow Rate 03/09/24 01:17 03/09/24 01:30 03/09/24 01:32 Temperature 97.5 F L Pulse Rate 115 H 116 H 114 H Respiratory Rate Blood Pressure 138/78 137/71 Pulse Oximetry 92 92 92 Oxygen Delivery Me thod Oxygen Flow Rate 03/09/24 01:33 03/09/24 01:45 03/09/24 01:46 Temperature Pulse Rate 111 H 106 H 105 H Respiratory Rate Blood Pressure 157/96 H Pulse Oximetry 91 93 91 Oxygen Delivery Me thod Oxygen Flow Rate 03/09/24 02:00 03/09/24 02:02 03/09/24 02:15 Temperature Pulse Rate 118 H 126 H 123 H Respiratory Rate Blood Pressure 134/65 Pulse Oximetry 92 91 91 Oxygen Delivery Me thod Oxygen Flow Rate 03/09/24 02:18 03/09/24 02:30 03/09/24 02:31 Temperature Pulse Rate 113 H 114 H 102 H Respiratory Rate Blood Pressure 156/81 H 158/82 H Pulse Oximetry 90 88 88 Oxygen Delivery Me thod Oxygen Flow Rate 03/09/24 02:45 03/09/24 02:46 03/09/24 03:00 Temperature Pulse Rate 112 H 119 H 92 Respiratory Rate Blood Pressure 164/77 H Pulse Oximetry 91 87 L Oxygen Delivery Me thod Oxygen Flow Rate 03/09/24 03:00 03/09/24 03:02 03/09/24 03:03 Temperature Pulse Rate 116 H 126 H 115 H Respiratory Rate Blood Pressure 145/86 H Pulse Oximetry 92 92 90 Oxygen Delivery Me thod Oxygen Flow Rate 03/09/24 03:15 03/09/24 03:16 03/09/24 03:30 Temperature Pulse Rate 116 H 129 H 123 H Respiratory Rate Blood Pressure 139/79 Pulse Oximetry 89 87 L 91 Oxygen Delivery Me thod Oxygen Flow Rate 03/09/24 03:31 03/09/24 03:45 03/09/24 03:46 Temperature Pulse Rate 119 H 121 H 105 H Respiratory Rate Blood Pressure 153/88 H 132/74 Pulse Oximetry 89 92 93 Oxygen Delivery Me thod Oxygen Flow Rate 03/09/24 04:00 03/09/24 04:00 03/09/24 04:02 Temperature Pulse Rate 112 H 115 H Respiratory Rate 22 Blood Pressure 135/82 Pulse Oximetry 94 94 Oxygen Delivery Me thod Oxygen Flow Rate 03/09/24 04:15 03/09/24 04:17 03/09/24 04:30 Temperature Pulse Rate 118 H 122 H 111 H Respiratory Rate Blood Pressure 125/78 Pulse Oximetry 95 94 94 Oxygen Delivery Me thod Oxygen Flow Rate 03/09/24 04:31 03/09/24 04:32 03/09/24 04:45 Temperature Pulse Rate 111 H 109 H 111 H Respiratory Rate Blood Pressure 127/92 H Pulse Oximetry 92 93 92 Oxygen Delivery Me thod Oxygen Flow Rate 03/09/24 04:46 03/09/24 05:00 03/09/24 05:03 Temperature Pulse Rate 113 H 126 H 119 H Respiratory Rate Blood Pressure 137/88 162/83 H Pulse Oximetry 91 92 93 Oxygen Delivery Me thod Oxygen Flow Rate 03/09/24 05:15 03/09/24 05:17 03/09/24 05:18 Temperature Pulse Rate 112 H 121 H 121 H Respiratory Rate Blood Pressure 149/89 H Pulse Oximetry 94 93 93 Oxygen Delivery Me thod Oxygen Flow Rate 03/09/24 05:30 03/09/24 05:32 03/09/24 05:45 Temperature Pulse Rate 127 H 129 H 124 H Respiratory Rate Blood Pressure 133/81 Pulse Oximetry 91 93 93 Oxygen Delivery Me thod Oxygen Flow Rate 03/09/24 05:46 03/09/24 05:47 03/09/24 06:00 Temperature Pulse Rate 126 H 132 H 120 H Respiratory Rate Blood Pressure 123/91 H Pulse Oximetry 92 93 92 Oxygen Delivery Me thod Oxygen Flow Rate 03/09/24 06:01 03/09/24 06:02 03/09/24 06:15 Temperature Pulse Rate 114 H 106 H 110 H Respiratory Rate Blood Pressure 128/78 Pulse Oximetry 89 91 90 Oxygen Delivery Me thod Oxygen Flow Rate 03/09/24 06:16 03/09/24 06:17 03/09/24 06:30 Temperature Pulse Rate 116 H 115 H 114 H Respiratory Rate Blood Pressure 136/106 H Pulse Oximetry 89 91 92 Oxygen Delivery Me thod Oxygen Flow Rate 03/09/24 06:45 03/09/24 06:47 03/09/24 07:00 Temperature Pulse Rate 106 H 114 H 108 H Respiratory Rate Blood Pressure 110/86 Pulse Oximetry 89 90 95 Oxygen Delivery Me thod Nasal Cannula Oxygen Flow Rate 1 03/09/24 07:01 03/09/24 07:15 03/09/24 07:16 Temperature Pulse Rate 105 H 118 H 105 H Respiratory Rate Blood Pressure 130/75 122/88 Pulse Oximetry 90 92 Oxygen Delivery Me thod Nasal Cannula Nasal Cannula Oxygen Flow Rate 1 1 03/09/24 07:30 03/09/24 07:31 03/09/24 07:45 Temperature 98.2 F Pulse Rate 135 H 115 H 117 H Respiratory Rate Blood Pressure 120/98 H Pulse Oximetry 93 92 94 Oxygen Delivery Me thod Nasal Cannula Nasal Cannula Nasal Cannula Oxygen Flow Rate 1 1 1 03/09/24 07:46 03/09/24 08:02 03/09/24 08:04 Temperature Pulse Rate 124 H 115 H Respiratory Rate 18 Blood Pressure 116/69 Pulse Oximetry 91 91 90 Oxygen Delivery Me thod Nasal Cannula Nasal Cannula Oxygen Flow Rate 1 1 03/09/24 08:04 03/09/24 08:17 03/09/24 08:18 Temperature Pulse Rate 98 103 H Respiratory Rate 18 Blood Pressure 106/72 Pulse Oximetry 90 89 Oxygen Delivery Me thod Nasal Cannula Nasal Cannula Oxygen Flow Rate 1 1 03/09/24 08:31 03/09/24 08:46 03/09/24 08:50 Temperature Pulse Rate 98 106 H 105 H Respiratory Rate Blood Pressure 105/64 111/78 Pulse Oximetry 88 89 Oxygen Delivery Me thod Nasal Cannula Nasal Cannula Oxygen Flow Rate 1 1 03/09/24 09:02 03/09/24 09:17 03/09/24 09:31 Temperature Pulse Rate 95 87 100 Respiratory Rate Blood Pressure 105/76 108/82 117/66 Pulse Oximetry 91 92 90 Oxygen Delivery Me thod Nasal Cannula Nasal Cannula Nasal Cannula Oxygen Flow Rate 1 1 1 03/09/24 09:32 03/09/24 09:45 03/09/24 09:46 Temperature Pulse Rate 95 111 H 97 Respiratory Rate Blood Pressure 109/62 Pulse Oximetry 91 91 91 Oxygen Delivery Me thod Nasal Cannula Nasal Cannula Nasal Cannula Oxygen Flow Rate 1 1 1 03/09/24 10:00 03/09/24 10:02 03/09/24 10:03 Temperature Pulse Rate 107 H 103 H 107 H Respiratory Rate Blood Pressure 117/69 Pulse Oximetry 92 92 91 Oxygen Delivery Me thod Nasal Cannula Nasal Cannula Nasal Cannula Oxygen Flow Rate 1 1 1 03/09/24 10:17 03/09/24 10:31 03/09/24 10:48 Temperature Pulse Rate 101 H 98 100 Respiratory Rate Blood Pressure 121/71 99/69 Pulse Oximetry 90 89 91 Oxygen Delivery Me thod Nasal Cannula Nasal Cannula Oxygen Flow Rate 1 1 03/09/24 10:53 03/09/24 11:00 03/09/24 11:01 Temperature 97.1 F L Pulse Rate 92 99 111 H Respiratory Rate 16 Blood Pressure 113/67 115/79 Pulse Oximetry 91 91 91 Oxygen Delivery Me thod Nasal Cannula Nasal Cannula Nasal Cannula Oxygen Flow Rate 1 1 1 03/09/24 11:33 03/09/24 12:02 03/09/24 12:31 Temperature Pulse Rate 110 H 114 H 109 H Respiratory Rate Blood Pressure 119/69 127/75 138/69 Pulse Oximetry 92 90 89 Oxygen Delivery Me thod Nasal Cannula Nasal Cannula Nasal Cannula Oxygen Flow Rate 1 1 1 03/09/24 13:01 03/09/24 13:41 03/09/24 14:02 Temperature Pulse Rate 132 H 111 H 114 H Respiratory Rate Blood Pressure 149/87 H 145/69 H 131/92 H Pulse Oximetry 89 93 88 Oxygen Delivery Me thod Nasal Cannula Nasal Cannula Nasal Cannula Oxygen Flow Rate 1 1 1 03/09/24 14:32 03/09/24 15:15 03/09/24 15:19 Temperature 98.0 F Pulse Rate 121 H 104 H 99 Respiratory Rate 18 Blood Pressure 147/93 H Pulse Oximetry 91 90 Oxygen Delivery Me thod Nasal Cannula Nasal Cannula Oxygen Flow Rate 1 1 03/09/24 15:19 Temperature Pulse Rate Respiratory Rate 18 Blood Pressure Pulse Oximetry 90 Oxygen Delivery Me thod Nasal Cannula Oxygen Flow Rate 1 Labs Labs: Laboratory Results - last 24 hr 03/09/24 06:33 WBC 11.18 H RBC 3.90 L Hgb 12.6 Hct 37.4 MCV 96 MCH 32 MCHC 34 Plt Count 240 VBG pH 7.441 H VBG pCO2 42 VBG pO2 85.8 H VBG HCO3 28 Sodium 129 L Potassium 3.9 Chloride 94 L Carbon Dioxide 28 Anion Gap 7 BUN 11 Creatinine 0.4 L Estimated Creat Clear 40.04 Estimated GFR 101 Glucose 175 H Lactate 1.8 Calcium 8.3 L Digoxin 0.5 L
[2024-03-09] MEDS: PREGABALIN 50 MG CAPSULE PO ×2 (18:14→22:26)
[2024-03-09] MEDS: INSULIN GLARGINE,HUM.REC.ANLOG 100 UNIT/ML INSULN.PEN 10 UNIT SUBCUT (20:04)
[2024-03-09] MEDS: ATORVASTATIN 10 MG TABLET 20 MG PO (20:04)
[2024-03-09] MEDS: AZITHROMYCIN 250 MG TABLET 500 MG PO (20:04)
[2024-03-09] MEDS: cefTRIAXone 2 GM in 0.9 % SODIUM CHLORIDE Mini-bag 100 ML IVPB (22:25)
[2024-03-10] VITALS (19 sets, daily range): BP systolic 107–145; BP diastolic 60–85; PULSE 84–116; RESP 18–22; TEMP 36.2–36.8; O2SAT 89–95
[2024-03-10] MEDS: METOPROLOL TARTRATE 25 MG TABLET PO ×2 (02:04→06:09)
--- NOTE | 2024-03-10 06:18 | PC.NURSE ---
-: pleasant and cooperative. pt requiring 1L O2 to keep O2 sats >88%. when pt asleep, she desat to low 80s - play writer attempted 2-3L via NC to keep sats >88% w/o success, pt has Hx TOM and is supposed to wear a mouth guard, she declined to wear, play writer placed pt on 1L via Oxy mask and was able to keep sats in the mid to low 90s. Oxy mask was on from 2200 till around 0200, then placed back on 1L NC. pt asked what is this contraption? about the oxymask, play writer informed her about her O2 sats while asleep, pt verbalized she felt she finally got some good sleep. encouraging aerobika when pt is awake, good amount of effort - needs encouragement, pt unable to cough up any sputum. Dilt drip continues at 2mg/hr. 25mg Metoprolol given Q4h. HR 80s-110s. Tele - AFib/Flutter w/ occasional PVCs. Proof Carrier asked pt about breast cancer hx, pt informed play writer that she does have a restricted extremity, arm band placed & IVs to restricted extremity were removed. Bilat hands appear swollen, pitting edema to right hand - bilat upper extremities elevated on pillows & new bands placed as previous ones seemed very snug around the wrist.
[2024-03-10 06:47] LABS: HCO3 VBG 29 mmol/L (21-28); PCO2 VBG 41 mmHG (40-50); PO2 VBG 61.1 mmHG (25-47); pH VBG 7.454 (7.32-7.43)
[2024-03-10 06:48] LABS: Hematocrit 37.5 % (33.0-51.0); Hemoglobin* 12.6 gm/dL (12.0-16.0); Mean Corpuscular HGB Conc 34 gm/dL (32-36); Mean Corpuscular Hemoglobin 32 pg (26-34); Mean Corpuscular Volume 96 fL (80-100); Platelet Count* 254 K/uL (140-440); Red Blood Count 3.92 m/uL (4.00-5.20); White Blood Count* 11.19 K/uL (4.50-11.00)
[2024-03-10 06:54] LABS: Slide Review Reflex No
[2024-03-10 07:06] LABS: Chloride* 94 mmol/L (96-114); Potassium* 3.9 mmol/L (3.6-5.1); Sodium* 127 mmol/L (135-149)
[2024-03-10 07:09] LABS: Anion Gap 4 mEq/L (7-15); Blood Urea Nitrogen* 11 mg/dL (7-30); Carbon Dioxide* 29 mmol/L (20-32); Creatinine* 0.4 mg/dL (0.5-1.5); Est. Creatinine Clearance* 40.04; Estimated Glomerular Filt Rate 101 ml/min; Glucose* 125 mg/dL (60-115)
[2024-03-10 07:10] LABS: Calcium* 8.2 mg/dL (8.4-10.6); Magnesium* 1.8 mg/dL (1.5-2.6)
[2024-03-10] MEDS: DIGOXIN 250 MCG TABLET PO (08:38)
[2024-03-10] MEDS: dilTIAZem 240 MG CAP (CD) PO (08:38)
[2024-03-10] MEDS: TORSEMIDE 20 MG TABLET 60 MG PO (08:39)
[2024-03-10] MEDS: APIXABAN 5 MG TABLET PO ×2 (08:39→21:36)
[2024-03-10] MEDS: BENZONATATE 100 MG CAPSULE 200 MG PO ×3 (08:39→21:36)
[2024-03-10] MEDS: PREGABALIN 100 MG CAPSULE PO (08:39)
[2024-03-10] MEDS: DIVALPROEX SODIUM ER TAB 250 MG 750 MG PO ×2 (08:39→21:36)
[2024-03-10] MEDS: ASPIRIN 81 MG TAB.CHEW PO (08:39)
[2024-03-10] MEDS: PRIMIDONE 50 MG TABLET 250 MG PO (08:40)
[2024-03-10] MEDS: SODIUM CHLORIDE 1 GM TABLET 2 GM PO ×3 (08:42→18:22)
[2024-03-10] MEDS: METOPROLOL SUCCINATE (XL) 50 MG TAB 75 MG PO ×2 (08:45→21:36)
--- NOTE | 2024-03-10 10:10 | NUTR.NU ---
RDN with nutrition screen related to positive skin risk and diet education related to current diet orders. Patient admitted with sepsis, pneumonia, and A.fib with RVR. Current weight 292lb 6.4oz; height 5ft 4in; BMI 50.2 kg/m2. Per weight history, weight has been stable recently. Current diet order is diabetic and heart healthy. Meal intakes since admit have been mainly 50% which is adequate. RDN visited with patient whom reports a good appetite. Offered diet education related to current diet order, patient declined at this time. Encouraged patient to let staff know if she has any questions or concerns. Will continue to monitor.
--- NOTE | 2024-03-10 10:18 | P.IMPN_ITS ---
Progress Note: A&P Assessment and plan (1) Sepsis: Problem details: -At the ED, patient was tachycardic EKG showed sinus tachycardia and a normal troponin. Patient has mild WBC elevation at 11.4, lactate was elevated at 3.1 and CRP elevated at about 7.9. -Treat sepsis, elevated lactic acid, Treat CAP IV Abx + IVF -trend lactate -blood cultures negative to date. Sputum cultures not obtained. -resolved after 48 hours Status: Acute (2) Community acquired pneumonia: Problem details: - above -started ceftriaxone and azithromycin. Will stop azithromycin after 5 days. Discontinue ceftriaxone after 7 days. -follow-up blood cultures -urine strep pneumonia and Legionella antigens are both negative -nasal MRSA swab negative - empiric vancomycin IV was stopped with negative nasal MRSA swab result Status: Acute (3) Tachycardia: Problem details: EKG from the ED shows P-waves and multiple leads, regular, likely secondary to sepsis Repeat EKG demonstrated A Fib RVR Cardiac monitoring Normal troponins Echocardiogram 03/06/2024 demonstrates normal LV size with moderately increased LV wall thickness and normal EF of 60-65%. Normal RV chamber size and function. Severely enlarged left atrium. Inferior vena cava consistent with elevated right atrial pressure. Status: Acute (4) Atrial fibrillation with rapid ventricular response: Problem details: -unable to achieve rate control with initial IV metoprolol and IV diltiazem boluses, which were attempted when awaiting CCU bed/staff availability. -transferred to CCU status. -initiated IV diltiazem drip. Added oral diltiazem. -increased dose of oral diltiazem and oral metoprolol in addition to dig loading. Digoxin trough level 03/09/2024 of 0.5 on oral digoxin 0.25 mg once daily -initiated anticoagulation with apixaban 5 mg p.o. b.i.d. -Given her polypharmacy, our pharmacist discerned primidone induced increased metabolism of diltiazem. Hence patient requiring increased dosing of diltiazem to achieve rate control. -03/10/2024: resting HR 80-100, sitting and eating and conversing HR 90-110, exertional HR 110-130 - overall a vast improvement from previously -On 03/10/2024 I stopped the diltiazem IV drip of 2 mg/hour and increased the or al diltiazem-CD to 240 mg q9 AM and 180 mg q 9PM. -scheduled oral metoprolol tartrate 25 mg q4 hours changed to scheduled metoprolol succinate 75 mg twice daily the morning of 03/10/2024. Status: Acute (5) Acute respiratory failure with hypoxia: Problem details: -continue with low-flow oxygen support as needed -suspect this is multifactorial from community-acquired pneumonia as well as evolving pulmonary edema -added furosemide IV and monitor response. -03/10/2024: changed IV furosemide 40 mg q AM to torsemide 60 mg po q AM -anticipate will need O2 supplementation when she is ready for discharge to [place] for TCU services before she can safely transition back to her home with her Status: Acute (6) Elevated lactic acid level: Problem details: lactate was initially elevated at 3.1 and later normalized Trend lactate Status: Acute (7) Transaminitis: Problem details: -mild elevation, chronic as patient had transaminitis couple of years ago -likely secondary to SILVA but patient will need outpatient liver workup Status: Acute (8) Type 2 diabetes mellitus: Problem details: -ordered insulin glargine 10 units q.h.s. -ordered low-dose insulin sliding scale -last hemoglobin A1c was 6.4 Status: Acute (9) Seizure disorder: Problem details: -Epilepsy controlled with primidone for years and her last known seizure was years ago -I asked our pharmacist to help us with various drug-drug interactions and they discerned that the primidone induces increased metabolism of diltiazem. Will continue with the same primidone dose for now and adjust the dose of the diltiazem accordingly. Status: Acute (10) Morbid obesity: Problem details: -were some risk factor for obesity associated hypoventilation syndrome -venous blood gas monitoring Status: Acute (11) Acute hyponatremia: Problem details: -Labs initially demonstrated sodium of 124. Chest x-ray showed bilateral but she lower lobe interstitial/airspace disease. -hyponatremia likely secondary to pneumonia, will treat pneumonia and monitor sodium levels. A total of 1.5 L of IV fluids was given at the ED. -continue 2,000 ml fluid restriction per day and continue with diuresis efforts and monitor Status: Acute (12) Pulmonary edema: Problem details: -initiated furosemide 20 mg IV then increase the dose to 40 mg IV. Continue to monitor -likely in part due to volume overloaded state from add administration of IV fluids when patient had low blood pressures, in combination with underlying diastolic heart failure -03/10/2023: changed from furosemide 40 mg IV q AM to torsemide 60 mg po q AM Status: Acute (13) Acute diastolic heart failure: Problem details: -due to acute illness, hypertensive heart disease including hypertrophic left ventricle, plus IV fluids utilized to resuscitate and stabilize patient when she was hypotensive -IV furosemide and monitor potassium and magnesium -continue with metoprolol -given relatively normal LV function will continue with use of diltiazem -03/10/2024: changed from furosemide 40 mg IV q AM to torsemide 60 mg po q AM; changed from metoprolol tartrate 25 mg po q 4 hours to metoprolol succinate 75 mg po bid; stopped diltiazem IV drip rate of 2 mg/hr and increased diltiazem CD dose to 240 mg po q AM and 180 mg po q PM; continue with digoxin 0.25 mg daily; continue to hold lisinopril for now and consider restarting if obtain better rate control Status: Acute (14) Polypharmacy: Problem details: -our pharmacists is helping us sort through this at this time -drug-drug interaction between primidone and diltiazem noted. Continue with usual primidone dose and increase diltiazem dose. Status: Acute (15) Physical debility: Problem details: -acute on chronic -continue with physical therapy and occupational therapy support while in hospital -TCU short-term rehab post hospitalization necessary before considering safely returning home. Patient and are agreeable at this time. Anticipate possible discharge readiness as early as this coming 03/12/2024 Status: Acute Plan 1. Reviewed my impression, plans, recommendations with patient and . 2. Answered their questions are satisfaction. 3. They are agreeable with above stated plans and recommendations 4. Change level of care to floor status from CCU status Time Spent With Patient Total time spent: 45 minutes Subjective Date Seen: 03/10/24 Interval history: Hospital day 5, 03/09/2024. Tolerating gradually increased activity with nursing staff in physical and occupational therapy. More awake. Still not even close to baseline abilities requiring assistance with most of her ADLs. She continues to deny chest heaviness, pressure, tightness, or pain at this time. Denies dyspnea at rest but acknowledges dyspnea with minimal exertion. Continues to have intermittent cough, now intermittently productive of clear to green sputum. Denies palpitations or chest fluttering. Ongoing generalized weakness. More interest in eating and drinking. Exam Narrative: Exam Narrative: Examined the patient in her hospital room. Appears comfortable, no acute distress. Alert and oriented x4. Cooperative and friendly. With standby assist is able to transfer from supine to sitting. With assist of 1 is able to transfer from sitting to standing and pivot transfer to the bedside chair. Eats independently after food prep and setup. Lungs with scattered rhonchi and left greater than right end inspiratory crackles. No wheezing. Heart tones chaotic with normal S1-S2. Abdomen with active bowel sounds, soft, nontender. Extremities with only trace edema, upper and lower extremities. No focal motor neurologic deficits. Generalized weakness. Const: Vital Signs, click to edit/add: Vital Signs - 24 hr 03/09/24 10:31 03/09/24 10:48 03/09/24 10:53 Temperature 97.1 F L Pulse Rate 98 100 92 Respiratory Rate 16 Blood Pressure 99/69 113/67 Pulse Oximetry 89 91 91 Oxygen Delivery Me thod Nasal Cannula Nasal Cannula Oxygen Flow Rate 1 1 03/09/24 11:00 03/09/24 11:01 03/09/24 11:33 Temperature Pulse Rate 99 111 H 110 H Respiratory Rate Blood Pressure 115/79 119/69 Pulse Oximetry 91 91 92 Oxygen Delivery Me thod Nasal Cannula Nasal Cannula Nasal Cannula Oxygen Flow Rate 1 1 1 03/09/24 12:02 03/09/24 12:31 03/09/24 13:01 Temperature Pulse Rate 114 H 109 H 132 H Respiratory Rate Blood Pressure 127/75 138/69 149/87 H Pulse Oximetry 90 89 89 Oxygen Delivery Me thod Nasal Cannula Nasal Cannula Nasal Cannula Oxygen Flow Rate 1 1 1 03/09/24 13:41 03/09/24 14:02 03/09/24 14:32 Temperature Pulse Rate 111 H 114 H 121 H Respiratory Rate Blood Pressure 145/69 H 131/92 H 147/93 H Pulse Oximetry 93 88 91 Oxygen Delivery Me thod Nasal Cannula Nasal Cannula Nasal Cannula Oxygen Flow Rate 1 1 1 03/09/24 15:15 03/09/24 15:19 03/09/24 15:19 Temperature 98.0 F Pulse Rate 104 H 99 Respiratory Rate 18 18 Blood Pressure Pulse Oximetry 90 90 Oxygen Delivery Me thod Nasal Cannula Nasal Cannula Oxygen Flow Rate 1 1 03/09/24 15:32 03/09/24 16:02 03/09/24 16:32 Temperature Pulse Rate 106 H 100 105 H Respiratory Rate Blood Pressure 142/88 H 163/86 H 145/92 H Pulse Oximetry 90 88 90 Oxygen Delivery Me thod Nasal Cannula Nasal Cannula Nasal Cannula Oxygen Flow Rate 1 1 1 03/09/24 17:32 03/09/24 18:02 03/09/24 18:32 Temperature Pulse Rate 108 H 103 H 108 H Respiratory Rate Blood Pressure 132/80 140/86 H 118/79 Pulse Oximetry 89 88 90 Oxygen Delivery Me thod Nasal Cannula Nasal Cannula Nasal Cannula Oxygen Flow Rate 1 1 1 03/09/24 19:01 03/09/24 19:02 03/09/24 19:15 Temperature Pulse Rate 96 95 105 H Respiratory Rate Blood Pressure 123/95 H Pulse Oximetry 88 90 87 L Oxygen Delivery Me thod Nasal Cannula Oxygen Flow Rate 1 03/09/24 19:24 03/09/24 19:30 03/09/24 19:32 Temperature Pulse Rate 100 91 92 Respiratory Rate Blood Pressure 130/92 H Pulse Oximetry 91 90 Oxygen Delivery Me thod Oxygen Flow Rate 03/09/24 19:45 03/09/24 20:00 03/09/24 20:02 Temperature Pulse Rate 99 100 99 Respiratory Rate Blood Pressure 137/86 Pulse Oximetry 87 L 88 88 Oxygen Delivery Me thod Oxygen Flow Rate 03/09/24 20:15 03/09/24 20:30 03/09/24 20:41 Temperature Pulse Rate 103 H 119 H Respiratory Rate 18 Blood Pressure Pulse Oximetry 93 92 Oxygen Delivery Me thod Oxygen Flow Rate 03/09/24 20:45 03/09/24 21:00 03/09/24 21:02 Temperature 97.3 F L Pulse Rate 104 H 115 H 104 H Respiratory Rate Blood Pressure 150/80 H Pulse Oximetry 90 90 89 Oxygen Delivery Me thod Oxygen Flow Rate 03/09/24 21:15 03/09/24 21:30 03/09/24 21:45 Temperature Pulse Rate 105 H 99 109 H Respiratory Rate Blood Pressure Pulse Oximetry 88 95 Oxygen Delivery Me thod Oxygen Flow Rate 03/09/24 22:00 03/09/24 22:02 03/09/24 22:15 Temperature 97.9 F Pulse Rate 106 H 100 99 Respiratory Rate 18 Blood Pressure 154/60 H Pulse Oximetry 95 95 95 Oxygen Delivery Me thod Oxygen Flow Rate 03/09/24 22:30 03/09/24 22:45 03/09/24 22:56 Temperature Pulse Rate 112 H 88 Respiratory Rate 18 Blood Pressure Pulse Oximetry 92 94 94 Oxygen Delivery Me thod OxyMask Oxygen Flow Rate 1 03/09/24 22:57 03/09/24 23:00 03/09/24 23:02 Temperature Pulse Rate 95 100 107 H Respiratory Rate Blood Pressure 124/52 L Pulse Oximetry 94 93 Oxygen Delivery Me thod OxyMask Oxygen Flow Rate 1 03/09/24 23:03 03/10/24 00:00 03/10/24 00:14 Temperature Pulse Rate 93 96 103 H Respiratory Rate 20 Blood Pressure 140/80 H 140/80 H Pulse Oximetry 94 94 91 Oxygen Delivery Me thod OxyMask Oxygen Flow Rate 1 03/10/24 01:00 03/10/24 01:01 03/10/24 02:01 Temperature 97.6 F Pulse Rate 94 101 H Respiratory Rate 20 20 Blood Pressure 107/75 114/63 Pulse Oximetry 89 91 Oxygen Delivery Me thod Nasal Cannula Oxygen Flow Rate 1 03/10/24 03:00 03/10/24 04:00 03/10/24 04:28 Temperature 97.6 F Pulse Rate 88 116 H 84 Respiratory Rate 20 20 Blood Pressure 127/60 145/80 H Pulse Oximetry 91 94 Oxygen Delivery Me thod Nasal Cannula Nasal Cannula Oxygen Flow Rate 1 1 03/10/24 05:00 03/10/24 05:11 03/10/24 06:06 Temperature 97.6 F Pulse Rate 106 H 101 H Respiratory Rate 22 20 22 Blood Pressure 123/63 143/71 H Pulse Oximetry 95 91 Oxygen Delivery Me thod Nasal Cannula Oxygen Flow Rate 1 03/10/24 08:38 03/10/24 09:11 03/10/24 09:14 Temperature 97.3 F L Pulse Rate 112 H 100 Respiratory Rate 20 20 Blood Pressure 131/77 Pulse Oximetry 92 92 Oxygen Delivery Me thod Nasal Cannula Nasal Cannula Oxygen Flow Rate 1 1 03/10/24 09:44 Temperature Pulse Rate 97 Respiratory Rate Blood Pressure Pulse Oximetry Oxygen Delivery Me thod Oxygen Flow Rate Labs Labs: Laboratory Results - last 24 hr 03/10/24 06:39 WBC 11.19 H RBC 3.92 L Hgb 12.6 Hct 37.5 MCV 96 MCH 32 MCHC 34 Plt Count 254 VBG pH 7.454 H VBG pCO2 41 VBG pO2 61.1 H VBG HCO3 29 H Sodium 127 L Potassium 3.9 Chloride 94 L Carbon Dioxide 29 Anion Gap 4 L BUN 11 Creatinine 0.4 L Estimated Creat Clear 40.04 Estimated GFR 101 Glucose 125 H Calcium 8.2 L Magnesium 1.8
--- NOTE | 2024-03-10 10:29 | PC.SOCIAL ---
Addendum entered by LESVIA Davila 03/10/24 12:12: Received decision from [facility] on admission; they are unable to meet pt's needs due to her weight. 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 Original Note: Discharge planning: Met with pt in room regarding d/c plan. Pt confirms she lives in [place] with her and is requesting a short term rehab stay at discharge. Pt is most interested in [facility], but states if they are not an option, she will consider facilities close by. Provided her with list of [facility] facilities and their Department of Health ratings. Called [facility] and spoke with Lisa who stated they may have a bed open up this week and is interested in assessing pt. Secure emailed information for review to [facility]. 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
[2024-03-10] MEDS: LACTOBACILLUS ACIDOPHILUS 1 TABLET 2 TAB PO ×2 (13:11→18:21)
--- NOTE | 2024-03-10 15:16 | PC.NURSE ---
End of shift [id number] - Pt alert, oriented, cooperative. Up with ceiling lift at start of shift, graduated to EZ stand and assist of 2 per PT at end of shift. Tolerating transition from O2 via nasal cannula to RA and able to maintain saturation at 90% or more per MD order. Incontinent of bladder during shift. RN provided encouragement for pt to eat/drink independently, pt resistive at start of shift with improved involvement by lunch meal. Denied pain, N/V, SOB. Observed to sleep during shift. Family at bedside, pt appears to be resting comfortably at end of shift in chair with call light within reach.
--- NOTE | 2024-03-10 16:08 | PC.SOCIAL ---
Discharge planning: Met with pt and in room regarding d/c plan. Pt and are aware of limited options for pt due to her bariatric needs and requested placement in [facility] where she was placed previously for short term care. If they are unable to accept pt, requested [facility] choice. Called and secure emailed information to Danisha at [facility] and Areli with [facility] admissions for evaluation for these facilities. supervisor fur floor worker provided pt and with list of facilities specializing in bariatric care and the general [facility] facility list and discussed the Department of Health ratings for these facilities. supervisor fur floor worker to follow up as needed.
[2024-03-10] MEDS: PREGABALIN 50 MG CAPSULE PO ×2 (18:24→22:28)
[2024-03-10] MEDS: dilTIAZem 180 MG CAP (CD) PO (21:35)
[2024-03-10] MEDS: ATORVASTATIN 10 MG TABLET 20 MG PO (21:36)
[2024-03-10] MEDS: INSULIN GLARGINE,HUM.REC.ANLOG 100 UNIT/ML INSULN.PEN 10 UNIT SUBCUT (21:37)
[2024-03-10] MEDS: cefTRIAXone 2 GM in 0.9 % SODIUM CHLORIDE Mini-bag 100 ML IVPB (21:37)
[2024-03-10] MEDS: SODIUM CHLORIDE 0.9 % (FLUSH) 10 ML SYRINGE 5 ML IVF (21:37)
--- NOTE | 2024-03-10 22:40 | PC.NURSE ---
End of Shift: Patient pleasant and cooperative. Afebrile. Denies pain. O2 sats greater than 90% on room air. Tele showing A-fib with heart rate 90-110s. Up to chair with 2 assist and EZ stand. Frequent turn and reposition in bed. Tolerating regular diet with no nausea.
[2024-03-11] VITALS (11 sets, daily range): BP systolic 103–133; BP diastolic 49–90; PULSE 82–118; RESP 14–20; TEMP 36.3–37.1; O2SAT 91–99
[2024-03-11 06:27] LABS: HCO3 VBG 33 mmol/L (21-28); PCO2 VBG 46 mmHG (40-50); PO2 VBG 63.7 mmHG (25-47); pH VBG 7.463 (7.32-7.43)
[2024-03-11 06:28] LABS: Hematocrit 37.5 % (33.0-51.0); Hemoglobin* 12.6 gm/dL (12.0-16.0); Mean Corpuscular HGB Conc 34 gm/dL (32-36); Mean Corpuscular Hemoglobin 32 pg (26-34); Mean Corpuscular Volume 95 fL (80-100); Platelet Count* 308 K/uL (140-440); Red Blood Count 3.93 m/uL (4.00-5.20); White Blood Count* 9.45 K/uL (4.50-11.00)
[2024-03-11 06:36] LABS: Slide Review Reflex No
--- NOTE | 2024-03-11 06:54 | PC.NURSE ---
Pt is alert and oriented x3. Afebrile. Pt denies pain, chest pain, SOB and N/V. Pt?s external catheter was changed and is patent and draining. Pt?s heart rate fluctuates between 85-118, MD aware. Pt was placed on 1L of O2 via nasal cannula, when pt fell asleep due to O2 stats going down to 83-86%. Pt was turned and repositioned throughout night.
[2024-03-11 06:57] LABS: Chloride* 92 mmol/L (96-114)
[2024-03-11 06:58] LABS: Potassium* 3.4 mmol/L (3.6-5.1); Sodium* 131 mmol/L (135-149)
[2024-03-11 07:00] LABS: Anion Gap 8 mEq/L (7-15); Carbon Dioxide* 31 mmol/L (20-32); Creatinine* 0.4 mg/dL (0.5-1.5); Est. Creatinine Clearance* 40.04; Estimated Glomerular Filt Rate 101 ml/min
[2024-03-11 07:01] LABS: Blood Urea Nitrogen* 14 mg/dL (7-30); Calcium* 8.2 mg/dL (8.4-10.6); Glucose* 124 mg/dL (60-115); Magnesium* 1.7 mg/dL (1.5-2.6)
[2024-03-11 07:06] LABS: Digoxin* 0.4 ng/mL (0.8-2.0)
--- NOTE | 2024-03-11 07:22 | P.IMPN_ITS ---
Progress Note: A&P Assessment and plan (1) Acute respiratory failure with hypoxia: Problem details: -continue with low-flow oxygen support as needed -suspect this is multifactorial from community-acquired pneumonia as well as evolving pulmonary edema -03/10/2024: changed IV furosemide 40 mg q AM to torsemide 60 mg po q AM -anticipate will need O2 supplementation when she is ready for discharge to [place] for TCU services before she can safely transition back to her home with her Status: Acute (2) Acute diastolic heart failure: Problem details: -due to acute illness, hypertensive heart disease including hypertrophic left ventricle, plus IV fluids utilized to resuscitate and stabilize patient when she was hypotensive -IV furosemide and monitor potassium and magnesium -continue with metoprolol -given relatively normal LV function will continue with use of diltiazem -03/10/2024: changed from furosemide 40 mg IV q AM to torsemide 60 mg po q AM; changed from metoprolol tartrate 25 mg po q 4 hours to metoprolol succinate 75 mg po bid; stopped diltiazem IV drip rate of 2 mg/hr and increased diltiazem CD dose to 240 mg po q AM and 180 mg po q PM; continue with digoxin 0.25 mg daily; continue to hold lisinopril for now and consider restarting if obtain better rate control Status: Acute (3) Pulmonary edema: Problem details: -initiated furosemide 20 mg IV then increase the dose to 40 mg IV. Continue to monitor -likely in part due to volume overloaded state from add administration of IV fluids when patient had low blood pressures, in combination with underlying diastolic heart failure -03/10/2023: changed from furosemide 40 mg IV q AM to torsemide 60 mg po q AM Status: Acute (4) Atrial fibrillation with rapid ventricular response: Problem details: -unable to achieve rate control with initial IV metoprolol and IV diltiazem boluses, which were attempted when awaiting CCU bed/staff availability. -transferred to CCU status. -initiated IV diltiazem drip. Added oral diltiazem. -increased dose of oral diltiazem and oral metoprolol in addition to dig loading. Digoxin trough level 03/09/2024 of 0.5 on oral digoxin 0.25 mg once daily -initiated anticoagulation with apixaban 5 mg p.o. b.i.d. -Given her polypharmacy, our pharmacist discerned primidone induced increased metabolism of diltiazem. Hence patient requiring increased dosing of diltiazem to achieve rate control. -03/10/2024: resting HR 80-100, sitting and eating and conversing HR 90-110, exertional HR 110-130 - overall a vast improvement from previously -On 03/10/2024 I stopped the diltiazem IV drip of 2 mg/hour and increased the oral diltiazem-CD to 240 mg q9 AM and 180 mg q 9PM. -scheduled oral metoprolol tartrate 25 mg q4 hours changed to scheduled metoprolol succinate 75 mg twice daily the morning of 03/10/2024. Status: Acute (5) Community acquired pneumonia: Problem details: - above -started ceftriaxone and azithromycin. Will stop azithromycin after 5 days. Discontinue ceftriaxone after 7 days - 03/12/24 -follow-up blood cultures -urine strep pneumonia and Legionella antigens are both negative -nasal MRSA swab negative - empiric vancomycin IV was stopped with negative nasal MRSA swab result Status: Acute (6) Acute hyponatremia: Problem details: -Labs initially demonstrated sodium of 124. CXR shows ongoing evidence of CAP. -hyponatremia likely secondary to pneumonia, will treat pneumonia and monitor sodium levels. -can lift fluid restriction as of 03/11 Status: Acute (7) Type 2 diabetes mellitus: Problem details: -ordered insulin glargine 10 units q.h.s. -ordered low-dose insulin sliding scale -last hemoglobin A1c was 6.4 Status: Acute (8) Seizure disorder: Problem details: -Epilepsy controlled with primidone for years and her last known seizure was years ago -I asked our pharmacist to help us with various drug-drug interactions and they discerned that the primidone induces increased metabolism of diltiazem. Will continue with the same primidone dose for now and adjust the dose of the diltiazem accordingly. Status: Acute (9) Morbid obesity: Problem details: -were some risk factor for obesity associated hypoventilation syndrome -venous blood gas monitoring Status: Acute (10) Polypharmacy: Problem details: -our pharmacists is helping us sort through this at this time -drug-drug interaction between primidone and diltiazem noted. Continue with usual primidone dose and increase diltiazem dose. Status: Acute (11) Physical debility: Problem details: -acute on chronic -continue with physical therapy and occupational therapy support while in hospital -TCU short-term rehab post hospitalization necessary before considering safely returning home. Patient and are agreeable at this time. Anticipate possible discharge readiness as early as this coming 03/12/2024 Status: Acute (12) Weakness: Status: Acute Subjective Date Seen: 03/11/24 Interval history: Daily Progress Note - Hospital Medicine Day #: 6 CC: Community-acquired pneumonia with sepsis (resolved), pulmonary edema, AFib RVR 24 HOUR UPDATE: RN note: Pt is alert and oriented x3. Afebrile. Pt denies pain, chest pain, SOB and N/V. Pt?s external catheter was changed and is patent and draining. Pt?s heart rate fluctuates between 85-118, MD aware. Pt was placed on 1L of O2 via nasal cannula, when pt fell asleep due to O2 stats going down to 83-86%. Pt was turned and repositioned throughout night. Notable Labs, Micro, Rads, Interventions: CBC has reflected a decreasing white blood cell count. Normal today at 9.4. Hemoglobin is stable. Platelets are stable. Venous blood gas 7.46. Normal pCO2. Sodium is improving. 131 today. Potassium is a bit low at 3.4. Kidney function is normal and at baseline. Previous elevated CRP has decreased. Mildly elevated TSH without follow-up with a T4 at this time. NTD blood and urine cultures. CXR - Interval worsening of left infrahilar lung and left lower lobe opacities consistent with pneumonia in the proper clinical setting. Follow-up chest radiograph in 6-8 weeks is recommended to confirm resolution. Objective: Kisha has limited mobility; can barely pull herself forward for me to listen to her back Vitals: tachycardia/AFIB rate control is improving. 80-110. Lungs: inadequate exam. mild tachypnea; no wheezes auscultated or auditory Cardiac: S1S2. lymphedema - 3+ edema to b/l extremities. Disposition/Potential discharge - TCU when appropriate. assess physical needs; switch ceftriaxone to oral abx; assure HR control and sodium stabilization. Today I spent 50minutes seeing the patient, reviewing Expanse and EPIC notes/diagnostics, discussing the care plan with our care time that includes social work, PT/OT, pharmacy, RT, detention and documenting my impressions and plan in the medical record. Exam Const: Vital Signs, click to edit/add: Vital Signs - 24 hr 03/10/24 08:38 03/10/24 09:11 03/10/24 09:14 Temperature 97.3 F L Pulse Rate 112 H 100 Pulse Rate [Pulse Oximeter] Respiratory Rate 20 20 Blood Pressure 131/77 Blood Pressure [Ri ght Arm] Pulse Oximetry 92 92 Oxygen Delivery Me thod Nasal Cannula Nasal Cannula Oxygen Flow Rate 1 1 03/10/24 09:44 03/10/24 11:53 03/10/24 15:00 Temperature 97.6 F Pulse Rate 97 90 Pulse Rate [Pulse Oximeter] Respiratory Rate 20 Blood Pressure 141/68 H Blood Pressure [Ri ght Arm] Pulse Oximetry 92 92 Oxygen Delivery Me thod Room Air Room Air Oxygen Flow Rate 03/10/24 15:00 03/10/24 15:00 03/10/24 16:12 Temperature 97.1 F L Pulse Rate 113 H Pulse Rate [Pulse Oximeter] 86 86 Respiratory Rate 18 18 Blood Pressure Blood Pressure [Ri ght Arm] 116/85 Pulse Oximetry 92 Oxygen Delivery Me thod Room Air Oxygen Flow Rate 03/10/24 19:00 03/11/24 00:30 03/11/24 00:30 Temperature 98.3 F Pulse Rate Pulse Rate [Pulse Oximeter] 95 97 Respiratory Rate 20 20 Blood Pressure Blood Pressure [Ri ght Arm] 137/71 Pulse Oximetry 93 91 Oxygen Delivery Me thod Room Air Room Air Oxygen Flow Rate 1 03/11/24 01:02 03/11/24 01:02 03/11/24 03:00 Temperature 98.4 F 97.6 F Pulse Rate 118 H Pulse Rate [Pulse Oximeter] 97 96 Respiratory Rate 20 20 Blood Pressure Blood Pressure [Ri ght Arm] 131/88 109/87 Pulse Oximetry 91 94 Oxygen Delivery Me thod Room Air Room Air Oxygen Flow Rate 1 Labs Labs: Laboratory Results - last 24 hr 03/10/24 03/11/24 06:39 06:10 WBC 9.45 RBC 3.93 L Hgb 12.6 Hct 37.5 MCV 95 MCH 32 MCHC 34 Plt Count 308 VBG pH 7.463 H VBG pCO2 46 VBG pO2 63.7 H VBG HCO3 33 H Sodium 127 L 131 L Potassium 3.9 3.4 L Chloride 94 L 92 L Carbon Dioxide 29 31 Anion Gap 4 L 8 BUN 11 14 Creatinine 0.4 L 0.4 L Estimated Creat Clear 40.04 40.04 Estimated GFR 101 101 Glucose 125 H 124 H Calcium 8.2 L 8.2 L Magnesium 1.8 1.7 Digoxin 0.4 L
[2024-03-11] MEDS: TORSEMIDE 20 MG TABLET 60 MG PO (07:48)
[2024-03-11] MEDS: LACTOBACILLUS ACIDOPHILUS 1 TABLET 2 TAB PO ×3 (07:48→17:46)
[2024-03-11] MEDS: SODIUM CHLORIDE 1 GM TABLET 2 GM PO ×3 (07:49→17:47)
[2024-03-11] MEDS: ASPIRIN 81 MG TAB.CHEW PO (09:14)
[2024-03-11] MEDS: PRIMIDONE 50 MG TABLET 250 MG PO (09:15)
[2024-03-11] MEDS: DIVALPROEX SODIUM ER TAB 250 MG 750 MG PO ×2 (09:16→20:10)
[2024-03-11] MEDS: dilTIAZem 240 MG CAP (CD) PO (09:16)
[2024-03-11] MEDS: APIXABAN 5 MG TABLET PO ×2 (09:17→20:10)
[2024-03-11] MEDS: BENZONATATE 100 MG CAPSULE 200 MG PO ×3 (09:17→20:10)
[2024-03-11] MEDS: PREGABALIN 100 MG CAPSULE PO (09:17)
[2024-03-11] MEDS: DIGOXIN 250 MCG TABLET PO (09:18)
[2024-03-11] MEDS: SODIUM CHLORIDE 0.9 % (FLUSH) 10 ML SYRINGE 5 ML IVF ×2 (09:19→20:11)
[2024-03-11] MEDS: METOPROLOL SUCCINATE (XL) 50 MG TAB 75 MG PO ×2 (09:19→20:10)
--- NOTE | 2024-03-11 11:16 | PC.SOCIAL ---
Discharge planning: Received call back from Danisha at [facility] stating they can accept pt for a short term rehab stay as long as she is not still requiring isolation precautions at discharge. Pt has been accepted to a shared room in the facility for admit tomorrow 03/12/24. Met with pt and who are aware and agree with this plan. At [facility] request, shared with pt and there are a few patients with COVID in the unit she will be entering, but that these patients are in private rooms and have their own dedicated staff. Pt and are understanding of this and in agreement with admit to [facility] at discharge. [facility] is requesting pt arrive at about 2:00 tomorrow if possible as they have other admissions scheduled tomorrow. is requesting non-emergency EMS and is aware and agrees to pay privately if not covered by insurance. Estimate of $240 for this transport if not covered by insurance. tailings worker to complete PAS and follow up as needed.
--- NOTE | 2024-03-11 11:45 | CRLHL7_ITS ---
For Patients: As a result of the Century Cures Act, medical imaging exams and procedure reports are released immediately into your electronic medical record. You may view this report before your referring provider. If you have questions, please contact your health care provider. Indication: Follow-up CHF/pneumonia. Technique: AP portable chest. Comparison: Chest x-ray 03/08/2024 Findings: There has been interval increase in patchy opacity in the left infrahilar lung and left lower lobe consistent with worsening pneumonia in the proper clinical setting. Follow-up chest radiograph in 6-8 weeks is recommended to confirm resolution. The right lung is clear. The cardiomediastinal silhouette and pulmonary vasculature are within normal limits. No pleural effusion or pneumothorax is identified. Impression: Interval worsening of left infrahilar lung and left lower lobe opacities consistent with pneumonia in the proper clinical setting. Follow-up chest radiograph in 6-8 weeks is recommended to confirm resolution. Dictated by Salazar Beavers MD @ 03/11/2024 12:46:55 PM (Electronically Signed)
[2024-03-11] MEDS: PREGABALIN 50 MG CAPSULE PO ×2 (17:46→22:14)
[2024-03-11] MEDS: INSULIN ASPART 100 UNIT/ML SUBCUT (17:46)
--- NOTE | 2024-03-11 18:20 | PC.NURSE ---
End of Shift [id number]: Patient pleasant and cooperative. Patient vitally stable, lungs diminished/course crackles, BS WNL, IV SL and intact. Patient denies pain. Patient is EZ-stand when transferring, patient has been up in chair all shift. [place] draining, and patient had 1 incontinent BM. Patient tolerating regular diet. Blood sugar 127, 139, 170. Tele-A.fib.
[2024-03-11] MEDS: dilTIAZem 180 MG CAP (CD) PO (20:09)
[2024-03-11] MEDS: ATORVASTATIN 10 MG TABLET 20 MG PO (20:09)
[2024-03-11] MEDS: INSULIN GLARGINE,HUM.REC.ANLOG 100 UNIT/ML INSULN.PEN 10 UNIT SUBCUT (20:11)
[2024-03-11] MEDS: 0.9 % SODIUM CHLORIDE 250 ml IV (22:14)
[2024-03-11] MEDS: cefTRIAXone 2 GM in 0.9 % SODIUM CHLORIDE Mini-bag 100 ML IVPB (22:14)
[2024-03-12 00:45] VITALS: RESP 20; O2SAT 85
[2024-03-12 01:50] VITALS: BP 128/71; PULSE 91; RESP 18; TEMP 36.6; O2SAT 94
[2024-03-12 06:35] LABS: HCO3 VBG 36 mmol/L (21-28); PCO2 VBG 48 mmHG (40-50); PO2 VBG 65.6 mmHG (25-47)
[2024-03-12 06:40] LABS: Hematocrit 38.8 % (33.0-51.0); Hemoglobin* 12.9 gm/dL (12.0-16.0); Mean Corpuscular HGB Conc 33 gm/dL (32-36); Mean Corpuscular Hemoglobin 32 pg (26-34); Mean Corpuscular Volume 96 fL (80-100); Platelet Count* 332 K/uL (140-440); Red Blood Count 4.03 m/uL (4.00-5.20); White Blood Count* 9.62 K/uL (4.50-11.00)
[2024-03-12 06:46] LABS: Slide Review Reflex No
[2024-03-12 07:02] VITALS: PULSE 100
[2024-03-12 07:08] LABS: Chloride* 93 mmol/L (96-114); Potassium* 3.4 mmol/L (3.6-5.1); Sodium* 134 mmol/L (135-149)
[2024-03-12 07:11] LABS: Anion Gap 6 mEq/L (7-15); Blood Urea Nitrogen* 17 mg/dL (7-30); Calcium* 8.4 mg/dL (8.4-10.6); Carbon Dioxide* 35 mmol/L (20-32); Creatinine* 0.5 mg/dL (0.5-1.5); Est. Creatinine Clearance* 40.04; Estimated Glomerular Filt Rate 96 ml/min; Glucose* 111 mg/dL (60-115)
--- NOTE | 2024-03-12 07:32 | PC.NURSE ---
Pt is alert and oriented x3. Afebrile. Pt on room air while awake O2 stats ranging between 91-99%, when pt falls asleep pt O2 stats drop 85-87% pt placed on 1L and titrated to 0.5L O2 to maintain O2 stats of 90% or higher.?Pt?s external catheter is patent and draining.?Pt denies pain, chest pain, SOB and N/V. Pt was turned and repositioned throughout night. ?
[2024-03-12 07:40] VITALS: BP 135/86; PULSE 100; RESP 18; TEMP 36.6; O2SAT 94
[2024-03-12] MEDS: SODIUM CHLORIDE 1 GM TABLET 2 GM PO ×2 (07:47→11:35)
[2024-03-12] MEDS: LACTOBACILLUS ACIDOPHILUS 1 TABLET 2 TAB PO ×2 (07:47→11:35)
[2024-03-12] MEDS: TORSEMIDE 20 MG TABLET 60 MG PO (07:47)
[2024-03-12] MEDS: ASPIRIN 81 MG TAB.CHEW PO (09:36)
[2024-03-12] MEDS: DIVALPROEX SODIUM ER TAB 250 MG 750 MG PO (09:37)
[2024-03-12] MEDS: PREGABALIN 100 MG CAPSULE PO (09:38)
[2024-03-12] MEDS: dilTIAZem 240 MG CAP (CD) PO (09:38)
[2024-03-12] MEDS: BENZONATATE 100 MG CAPSULE 200 MG PO (09:38)
[2024-03-12] MEDS: POTASSIUM BICARB 25 MEQ EFFERVESCENT TAB PO ×2 (09:39→11:15)
[2024-03-12] MEDS: METOPROLOL SUCCINATE (XL) 50 MG TAB 75 MG PO (09:40)
[2024-03-12 09:41] VITALS: PULSE 100
[2024-03-12] MEDS: APIXABAN 5 MG TABLET PO (09:41)
[2024-03-12] MEDS: PRIMIDONE 50 MG TABLET 250 MG PO (09:41)
[2024-03-12] MEDS: DIGOXIN 250 MCG TABLET PO (09:41)
[2024-03-12] MEDS: cefTRIAXone 2 GM in 0.9 % SODIUM CHLORIDE Mini-bag 100 ML IVPB (11:15)
[2024-03-12] MEDS: SODIUM CHLORIDE 0.9 % (FLUSH) 10 ML SYRINGE 5 ML IVF (11:15)
[2024-03-12 11:22] VITALS: BP 130/84; PULSE 94; RESP 22; TEMP 36.9; O2SAT 95
[2024-03-12] MEDS: INSULIN ASPART 100 UNIT/ML SUBCUT (11:36)
--- NOTE | 2024-03-12 12:42 | PC.NURSE ---
Discharge: Patient pleasant and cooperative, alert and oriented. Patient vitally stable, lungs diminished, BS WNL, IV removed, catheter intact. Patient denies pain. Patient tolerating regular diet. Incontinent of bowl and bladder, urinating well, and 1 blow out BM today. Blood sugars 127 and second one in the 160's. Tele= A.fib. Patient signed discharge form. Patient left the floor by EMS to [facility] in [place] at 1235. Danisha called at [facility], there was no answer, voicemail left.
--- NOTE | 2024-03-12 18:10 | P.DS_ITS ---
DS: Providers Provider Date Seen: 03/12/24 Date of admission: 03/05/24 22:52 Primary care physician: Chele Mena MD Admitting Clinician: Era Sharma MD Consults: 03/05/24 22:52 Consult to Occupational Therapy [CONS] Routine Comment: Reason(s) for OT Consult:: Evaluate and Treat Any Restrictions?:: No Restrictions Consult to Physical Therapy [CONS] Routine Comment: Reason(s) for PT Consult:: Evaluate and Treat Any Restrictions?:: No Restrictions 03/06/24 07:35 Consult to Respiratory Therapy [CONS] Routine Comment: Reason(s) for RT Consult:: Consult Comment: aerobika, incentive spirometer 03/06/24 10:18 Consult to Occupational Therapy [CONS] Routine Comment: Reason(s) for OT Consult:: Evaluate and Treat Any Restrictions?:: No Restrictions Attending Physician on discharge: Era Sharma MD Date of Discharge: 03/12/24 DS: Diagnosis Discharge Diagnosis (1) Acute respiratory failure with hypoxia: Status: Acute Problem details: -resolved to 1L with activity - d/c to TCU -multifactorial; PNA, CHF, TOM (2) Acute diastolic heart failure: Status: Acute Problem details: -due to acute illness, hypertensive heart disease including hypertrophic left ve ntricle, plus IV fluids utilized to resuscitate and stabilize patient when she was hypotensive/septic -at discharge: torsemide 60 mg po q AM; changed her metoprolol tartrate 25 mg po q 4 hours to metoprolol succinate 75 mg po bid; stopped diltiazem IV drip rate of 2 mg/hr and increased diltiazem CD dose to 240 mg po q AM and 180 mg po q PM; continue with digoxin 0.25 mg daily; continue to hold lisinopril for now and consider restarting if obtain better rate control (3) Pulmonary edema: Status: Acute Problem details: torsemide 60 mg po q AM - follow weights, electrolytes at TCU (4) Atrial fibrillation with rapid ventricular response: Status: Acute Problem details: -resolved with new regimen of diltiazem, metoprolol, digoxin. (5) Community acquired pneumonia: Status: Acute Problem details: -resolved with 5 doses of azithromycin and 7 days of rocephin -urine strep pneumonia and Legionella antigens are both negative -nasal MRSA swab negative - empiric vancomycin IV was stopped with negative nasal MRSA swab result (6) Acute hyponatremia: Status: Acute Problem details: -resolved; likely SIADH from acute illness (7) Type 2 diabetes mellitus: Status: Acute Problem details: -discharged on 10 units lantus - well managed in the inpatient setting. (8) Physical debility: Status: Acute Problem details: -acute on chronic -continue with physical therapy and occupational therapy support while in hospital -TCU short-term rehab post hospitalization necessary before considering safely returning home. Patient and are agreeable at this time. Anticipate possible discharge readiness as early as this coming 03/12/2024 (9) Polypharmacy: Status: Acute Problem details: -our pharmacists is helping us sort through this at this time -drug-drug interaction between primidone and diltiazem noted. Continue with usual primidone dose and increase diltiazem dose. (10) Weakness: Status: Acute (11) Morbid obesity: Status: Acute Problem details: -were some risk factor for obesity associated hypoventilation syndrome -venous blood gas monitoring DS: Summary Hospital Course Hospital Course: FINAL DIAGNOSIS/FOLLOW UP ISSUES: 1. CAP - sepsis. BC neg. completed 1 week of antibiotics. TCU for strengthening. 2. RVR AFIB - rate controlled with new regimen of digoxin, diltiazem, metoprolol. over correction as she recovers is always possible. follow blood pressures daily. 3. CHF with pulmonary edema - weaned to 1 L NC; new regimen of torsemide and potassium; follow electrolytes. 4. hyponatremia - resolved 5. Obesity; general weakness; poor motivation/insight - patient will need encouragement to be self sufficient. BRIEF HOSPITAL COURSE: Patient was admitted for 8 days. Synopsis of acute inpatient issues are outlined above. Chronic medical conditions with notable findings outlined above. Essentially presented in hypoxic respiratory failure and sepsis. She was hypotensive. She was resuscitated and diagnosed with community-acquired pneumonia. She then needed to be diuresed as her heart failure presented in the following days. Her rate was difficult to control secondary to polypharmacy and likely seizure medications that her chronic. A new regimen for both her diuresis, heart rate were established. Her weakness is chronic but was acutely worse after this week in the hospital. She is transferring to TCU for further strength and mobility improvement. DISCHARGE MEDICATIONS: See Reconciled list - SIGNIFICANT CHANGES: See the Mar. several changes in these were outlined in several areas of the discharge summary. Specific instructions to the patient and follow-up are outlined below. REVIEW OF SYSTEMS No new chest pain or dyspnea Pain controlled No voiding difficulties Tolerating diet challenge PHYSICAL EXAM: CONSTITUTIONAL: 132 kilos, easy stand with transfers. Poor insight into chronic mobility issues. VITAL SIGNS: see record. HEENT: Normocephalic, atraumatic. PERRL, EOMI, conjunctivae pink, no scleral icterus. Ears and nose externally normal. Pharynx normal. NECK: No JVD. No carotid bruit, no thyromegaly, no adenopathy. CHEST: Clear to auscultation bilaterally. HEART: S1 and S2 normal. Edema 2+ ABDOMEN: Soft, nontender. Normal bowel sounds. MUSCULOSKELETAL: No gross joint deformity or swelling. NEURO: Cranial nerves intact. Grossly intact. No asymmetric findings. SKIN: No rashes, petechiae, concerning changes PSYCHIATRIC: Mood euthymic. DISPOSITION: Tcu Time spent on discharge 37 minutes. Status at Discharge Functional status at discharge: wheelchair bound Overall status at discharge: patient is not back to baseline Time Spent with Patient Time attestation: Total time spent providing and/or coordinating discharge services: Time spent: Greater than 30 minutes Exam Const: Vital Signs, click to edit/add: Vital Signs - 24 hr 03/11/24 19:00 03/11/24 23:19 03/11/24 23:19 Temperature 97.3 F L 98.4 F Pulse Rate 94 Pulse Rate [Pulse Oximeter] 110 H 93 Respiratory Rate 20 20 Blood Pressure [Ri ght Arm] 127/80 Blood Pressure [Ri ght Radial Artery] 133/82 Pulse Oximetry 93 99 Oxygen Delivery Me thod Room Air Room Air Oxygen Flow Rate 03/11/24 23:19 03/11/24 23:19 03/12/24 00:45 Temperature Pulse Rate Pulse Rate [Pulse Oximeter] 93 Respiratory Rate 20 20 Blood Pressure [Ri ght Arm] Blood Pressure [Ri ght Radial Artery] Pulse Oximetry 99 85 L Oxygen Delivery Me thod Room Air Oxygen Flow Rate 03/12/24 01:50 03/12/24 07:02 03/12/24 07:40 Temperature 97.8 F 98 F Pulse Rate 100 Pulse Rate [Pulse Oximeter] 91 100 Respiratory Rate 18 18 Blood Pressure [Ri ght Arm] Blood Pressure [Ri ght Radial Artery] 128/71 135/86 Pulse Oximetry 94 94 Oxygen Delivery Me thod Room Air Room Air Oxygen Flow Rate 1 03/12/24 07:40 03/12/24 07:40 03/12/24 09:41 Temperature Pulse Rate 100 Pulse Rate [Pulse Oximeter] 100 Respiratory Rate 18 18 Blood Pressure [Ri ght Arm] Blood Pressure [Ri ght Radial Artery] Pulse Oximetry 94 Oxygen Delivery Me thod Room Air Oxygen Flow Rate 03/12/24 11:22 Temperature 98.4 F Pulse Rate Pulse Rate [Pulse Oximeter] 94 Respiratory Rate 22 Blood Pressure [Ri ght Arm] 130/84 Blood Pressure [Ri ght Radial Artery] Pulse Oximetry 95 Oxygen Delivery Me thod Room Air Oxygen Flow Rate DS: Data Data Completed and Pending Labs on day of discharge: Labs from last 24 hours 03/12/24 05:52 WBC 9.62 RBC 4.03 Hgb 12.9 Hct 38.8 MCV 96 MCH 32 MCHC 33 Plt Count 332 VBG pH 7.480 H VBG pCO2 48 VBG pO2 65.6 H VBG HCO3 36 H Sodium 134 L Potassium 3.4 L Chloride 93 L Carbon Dioxide 35 H Anion Gap 6 L BUN 17 Creatinine 0.5 Estimated Creat Clear 40.04 Estimated GFR 96 Glucose 111 Calcium 8.4 Discharge Plan Discharge Disposition: [facility] Date of Admission: 03/05/24 22:52 Attending Provider on Discharge: Haylee Rao Primary Care Provider: Chele Mena Discharge Medications: New atorvastatin 20 mg tablet 20 mg PO QHS Qty: 30 2RF torsemide 20 mg Tablet 60 mg PO DAILY@0800 Qty: 90 0RF atorvastatin 10 mg Tablet 20 mg PO HS Qty: 30 0RF diltiazem HCl 180 mg Capsule,Extended Release 24hr 180 mg PO HS Qty: 30 0RF diltiazem HCl 240 mg Capsule,Extended Release 24hr 240 mg PO DAILY Qty: 30 0RF digoxin 250 mcg (0.25 mg) Tablet 250 mcg PO DAILY Qty: 30 0RF acetaminophen 500 mg Tablet 1,000 mg PO Q6H PRNQty: 120 0RF benzonatate 100 mg Capsule 200 mg PO TID Qty: 30 0RF sodium chloride 1,000 mg Tablet,Soluble 1,000 mg PO TIDWM Qty: 30 0RF insulin glargine [Lantus Solostar U-100 Insulin] 100 unit/mL (3 mL) Insulin Pen 10 unit subcut HS Qty: 3 0RF Eliquis 5 mg Tablet 5 mg PO BID Qty: 60 0RF Lactobacillus acidophilus 0.5 mg (100 million cell) Tablet 100 mmu cells PO TIDWM Qty: 30 0RF metoprolol succinate 25 mg tablet extended release 24 hr 25 mg PO BID Qty: 60 0RF Rx Instructions: A total of 75mg ER po bid (one 50, one 25mg) twice a day potassium chloride 20 mEq tablet extended release 20 meq PO BID Qty: 60 2RF Continued pregabalin 100 mg capsule 100 mg PO QAM pregabalin 50 mg capsule 50 mg PO .6 Pm, 10PM cholecalciferol (vitamin D3) 25 mcg (1,000 unit) capsule 25 mcg PO DAILY aspirin 81 mg tablet,delayed release (DR/EC) 81 mg PO DAILY Fish Oil 100-160-1,000 mg capsule 1 cap PO DAILY multivitamin with minerals Tablet 1 tab PO DAILY divalproex 250 mg tablet extended release 24 hr 750 mg PO BID primidone 250 mg tablet 250 mg PO DAILY metoprolol tartrate 50 mg tablet 50 mg PO BID Qty: 180 3RF Rx Instructions: A total of 75mg ER po bid (one 50, one 25mg) twice a day (DME) Accu-Chek Guide test strips Strip See Rx Instructions .Route Qty: 100 3RF Rx Instructions: Patient to test once daily (DME) lancets [Accu-Chek Softclix Lancets] Misc See Rx Instructions .Route Qty: 100 3RF Rx Instructions: Patient to use one time daily (DME) pen needle, diabetic [BD Ultra-Fine Mini Pen Needle] 31 gauge x 3/16 needle See Rx Instructions .ROUTE .COMPLEX Qty: 100 0RF Dose Instruction: USE TO INJECT THREE TIMES DAILY Rx Instructions: USE TO INJECT ONCE DAILY lisinopril 10 mg tablet 10 mg PO DAILY Qty: 90 0RF Discontinued insulin glargine [Lantus Solostar U-100 Insulin] 100 unit/mL (3 mL) insulin pen 12 unit subcut QPM Qty: 15 3RF simvastatin 20 mg tablet 20 mg PO QPM Qty: 90 3RF Discharge Orders: Discharge Order (Routine); Ordered 03/12/24 Ordered By: Haylee Rao Additional Instructions: Most important issues for rehab: 1. pt is recovering from pneumonia. antibiotics are complete. still on a little oxygen. work with patient on using her vibratory peep and incentive spirometry tools. 2. pt is recovering from rapid rate response in AFIB and heart failure. She is new meds for HR (increased her metoprol, added oral diltizam, digoxin). We also have started torsemide each morning. 3. Pt is morbidly obese and doesn't move well; struggles with motivation. Encouragement and goal setting will be slater Activity Level: Activity as Tolerated and Up with assist Discharge Diet: Regular Follow Up Appointments: Chele Mena MD [Primary Care Provider] - 04/25/24 Forms: [employer] Info Instructions Admit to: SNF Discharge Potential: Fair Length of Stay: 30-90 days Can use facility standing orders?: Yes Code Status: Full Code TEDs: Bilateral Knee Rehab Potential: Fair Therapy: Physical Therapy and Occupational Therapy Therapy Orders: Evaluate and Treat and Gait Training Oxygen: Yes (1-2L to keep sats 88-92%) Oxygen Delivery Method: Nasal Cannula Urinary Catheter: No (We have used an external purwick female urinary catheter ) Glucose Checks: BID Lab Orders: BMP and digoxin level in 5-7 days (following renal function and electrolytes) as she is on new medications for heartrate control and diuretics. Orders are good >30 days: Yes
== END 2024-03-12 12:35 | DRG 871 ==
LOC: ED 22:15 → MEDSURG 22:53
PROVIDERS: Internal Medicine; Admitting Provider Student in an Organized Health Care Education/Training Program; Emergency Provider Family Medicine; PCP Internal Medicine; Visit Provider Student in an Organized Health Care Education/Training Program
DX: A41.9 Sepsis, unspecified organism (principal); I50.31 Acute diastolic (congestive) heart failure; J18.9 Pneumonia, unspecified organism; J96.01 Acute respiratory failure with hypoxia; J81.0 Acute pulmonary edema; E87.1 Hypo-osmolality and hyponatremia; Z68.43 Body mass index [BMI] 50.0-59.9, adult; R74.02 Elevation of levels of lactic acid dehydrogenase [LDH]; R00.0 Tachycardia, unspecified; G40.909 Epilepsy, unspecified, not intractable, without status epilepticus; E11.42 Type 2 diabetes mellitus with diabetic polyneuropathy; Z79.4 Long term (current) use of insulin; R74.01 Elevation of levels of liver transaminase levels; E78.5 Hyperlipidemia, unspecified; K21.9 Gastro-esophageal reflux disease without esophagitis; E66.01 Morbid (severe) obesity due to excess calories; I11.0 Hypertensive heart disease with heart failure; R53.81 Other malaise; R53.1 Weakness; Z79.899 Other long term (current) drug therapy; I48.91 Unspecified atrial fibrillation
CPT/HCPCS: 36415; 71045; 71046; 80048; 80053; 80162; 81001; 82803; 82962; 83605; 83735; 83880; 84100; 84145; 84295; 84443; 84484; 85025; 85027; 86140; 87040; 87070; 87086; 87449; 87631; 87899; 93005; 93306; 94664; 94761; 97110; 97161; 97166; 97530; 97535; 99284; 99285; A9270; J0456; J0696; J1650; J1815; J1940; J3490; J7030; J7050; Q9957

== ENCOUNTER 2024-03-12 12:27 | Outpatient (CLI) | payer MEDICARE, OTHER, SELFPAY | END 2024-03-12 12:28 | disposition home or self-care (01) | LOC: AMB 03-26 22:04 | PROVIDERS: PCP Internal Medicine; Visit Provider Student in an Organized Health Care Education/Training Program | DX: J96.01 Acute respiratory failure with hypoxia (principal); I50.31 Acute diastolic (congestive) heart failure; J81.1 Chronic pulmonary edema; E87.1 Hypo-osmolality and hyponatremia; J18.9 Pneumonia, unspecified organism; R53.1 Weakness; E66.01 Morbid (severe) obesity due to excess calories | CPT/HCPCS: A0425; A0428 ==

== ENCOUNTER 2024-06-02 10:16 | Outpatient (CLI) | payer MEDICARE, OTHER, SELFPAY | END 2024-06-02 10:17 | disposition home or self-care (01) | LOC: NFLDREF 10:18 | PROVIDERS: PCP Internal Medicine; Visit Provider Internal Medicine | DX: I10 Essential (primary) hypertension (principal); R53.1 Weakness | CPT/HCPCS: 80048 ==

== ENCOUNTER 2024-07-08 08:25 | Outpatient (CLI) | payer MEDICARE, OTHER, SELFPAY | END 2024-07-08 08:26 | disposition home or self-care (01) | LOC: NFLDREF 07-15 02:17 | PROVIDERS: PCP Internal Medicine; Referring Provider Internal Medicine; Visit Provider Internal Medicine | DX: E11.65 Type 2 diabetes mellitus with hyperglycemia (principal); E78.5 Hyperlipidemia, unspecified; Z79.4 Long term (current) use of insulin | CPT/HCPCS: 80061; 82043; 82570 ==

== ENCOUNTER 2024-08-11 15:00 | Outpatient (RCR) | payer MEDICARE, OTHER, SELFPAY ==
--- NOTE | 2024-07-29 11:40 | PT.OPEX ---
[facility] [place] [facility] Eval PT [facility] Outpatient Eval Start: 07/28/24 14:36 Freq: Status: Active Protocol: Document 07/29/24 07:16 HLA (Rec: 07/29/24 11:33 HLA [id number]) E-signed By Odalys Peacock, PT, DPT Physical Therapy Outpatient Evaluation Insurance Information Insurance Name [employer] Medical Diagnosis Referred to PT secondary to weakness due to sepsis, pneumonia, tachycardia, acute resp failure, hypoxia, increased lactic acid, morbid obesity, and hyponatremia with hosp stay 03/21 followed by SNF , then [facility]. Advanced to OP today. PMHx also includes DM2, HTN, seizure disorder, tonic clinic and tremors, a-fib, neuropathy, septic shock, obesity, DDD, GERD, renal cysts, pulmonary edema Treating Diagnosis weakness, impaired balance, difficulty ambulating. Referring MD Mena Subjective Preferred Name Yudy Suero Became ill Feb 2024, hospitalized, became completely bedridden. Transferred from [facility] to [facility] in , did have 2 falls when her L LE gave out and one when she missed the seat of the toilet. Brittanie was used to help her back up. She admits she has some residual fear of falling. Pt was able return home from the SNF 05/26/24 walking with a ww 30 feet with hands on assist. The facility did have her up to 100 feet but that decreased at home. PT and OT began in the home, working on strength and balance, reducing fall risk. She walks with a ww, 30 feet, belt and assist of spouse. Assist for toileting, clothing mgmt with high rise toilet. She needs max assist for LB dressing/shoes. Spouse adjusts upper body clothing but mainly it is min assist. Showering requires heavy assist of spouse, extended tub bench at least 50%. He does the cooking and cleaning, sets up her meds and then she takes them on her own. They do not have any picking machine operator helper in the home. She sleeps in a lift recliner. Does her exercises in the wc. She is in the wc for meals, can wheel short bouts with much difficulty due to thick carpet. She walks with the walker to the toilet ~6-8 times/day about 20 feet with his assist. Tires after 30 feet at the most. She has not been working on standing. Pt herself reports discomfort from neuropathy feet to knees. Takes Lyrica for relief of pain which gets as high as 5/10, lowers to 4/10. Date of Last 07/15/24 Physician Visit Current Work Status Retired Precautions Treatment hx epilepsy Precautions/ Contraindications Weight Bearing Full Weight Bearing Status Objective Range of Motion L UE shoulder flex/abd to 95 degrees, ER 0-50, IR 0-40 R UE flex/abd 0-100, ER 0-50, IR 0-40 B LE HF 10-100, abd 0-20, ER/IR minimal, knees 10-100, DF to 5, PF to 45 Strength UEs 3-/5 shldrs, elbows 4/5, hands 3+/5 LEs 4/5 L hip/knee, 4-/5 R hip and knee, DF 3+/5, PF 4 /5 B Palpation pain palpation L knee joint line Balance & Gait Gait- flexed at waist, shuffling gt, short steps, mod wt through UEs on walker, steadying assist, 60 feet x 2 with wc follow Balance sitting good static, good- dynamic, standing fair static, poor dynamic Posture fwd head, rounded shldrs, flexed hips Sensation/Reflexes diminished B knees to ankles, neuropathy dx Functional Test LEFS Performed & Score Assessment Assessment/ 78-year-old female referred to PT secondary to weakness Impression due to sepsis, pneumonia, tachycardia, acute resp failure, hypoxia, increased lactic acid, morbid obesity , and hyponatremia with hosp stay 03/21 followed by [facility], then [facility]. Advanced to OP today. PMHx also includes DM2, HTN, seizure disorder, tonic clinic and tremors, a-fib, neuropathy, septic shock, obesity, DDD, GERD, renal cysts, and pulmonary edema. She is currently requiring heavy care of spouse for ADLS, assist for transfers and gt. She sleeps in a lift chair, has incontinence and impaired stamina for caring for herself overall. Pt today presents with weakness UEs/LEs, R > L LE, impaired transfers requiring several attempts to rise to stand, gt limited to 60 feet x 2, flexed at waist, shuffles with ww, cga balance with wc follow. Balance testing shows high fall risk 3 inch functional reach and 5 time sit<>stand 62 sec. Pt performed seated/standing ex for UEs/LEs and core with PT today, did instruct in home ex program and encouraged standing at walker in addition to gt with spouse support to help improve her stamina. Pt is weak, impaired transfers and gt, poor balance and impaired stamina. Weekly PT sessions are indicated to improve her ind ind ADLs and gt/transfers to allow her to remain in her home with spouse's support. Primary Functional impaired ROM, impaired strength, impaired transfers, Limitations impaired gt, impaired balance, impaired mobility, impaired ADLs Plan of Care Rehabilitation Good Potential Physical Therapy Within 10-12 weeks Goals 1. Pt will have 5-/5 strength of LEs, pain free for ADLS, ambulation level surfaces and stairs. 2. Pt will be able to amb 100 feet x 2 with ww ind for household mobility. 3. Pt will be independent in home ex program for strengthening, ROM and mobility to reduce fall risk 4. Pt will demonstrate 9 point increase in LEF scale ( functional gain). 5. Pt will score show 20% improvement on balance testing for reduced fall risk with mobility in the home . 6. Pt will be ind in basic transfers, toilet, sit<> stand for household mobility. Coordination/ Referral Source Communication With Treatment Plan/ Gait Training,Manual Therapy,Neuromuscular Re-ed,Self- Direct Interventions Care/Home Management,Therapeutic Activities Patient Will Be Completion of LTG(s),Skills Plateau,Independent w/HEP, Discharged From Independently Progressing Therapy Evaluation Billing Untimed Code 25 Treatment Minutes PT Eval No Charge No Complexity Moderate Certification Information Initial 07/29/24 Certification Date Ending Certification 10/26/24 Date Provider Signature Yes Required Provider Signature POC & Medical Necessity Shows Agreement With Physician NPI Number Write NPI# Here Physician Comment/ : Change Physician Signature Please Sign/Date Here & Date Requested
== END 2024-10-06 16:43 | disposition home or self-care (01) ==
PROVIDERS: PCP Internal Medicine; Visit Provider Internal Medicine
DX: R26.89 Other abnormalities of gait and mobility (principal); Z51.89 Encounter for other specified aftercare
CPT/HCPCS: 97110; 97112; 97162

== ENCOUNTER 2024-08-15 00:47 | Emergency (ER) | payer MEDICARE, OTHER, SELFPAY ==
--- OUTSIDE RECORDS SUMMARY | 2024-07-09 10:30 | XMS_ITS | Encounter Summary ---
Author Organization [facility] Address [address] [place] [address] Care Team Providers Care Cloth Mender Name Role Phone Chele Mena MD Primary Care Provider Birgit Whipple MD Unavailable Dragan Ritter MD Unavailable Birgit Whipple MD Unavailable Reason for Visit * Reason Comments Follow Up Encounter Details Date Type Department Care Team (Latest Contact Info) Description 07/09/2024 10:30 AM CDT Office Visit [facility] Epilepsy Care [address] [facility] [address] [place] [address] Birgit Whippel MD [address] [place], [place] [id number] Focal (motor) epilepsy (H) (Primary Dx); Tremor; 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 (H) Social History Tobacco Use Types Packs/Day Years Used Date Smoking Tobacco: Never Smokeless Tobacco: Never Alcohol Use Standard Drinks/Week Comments No 0 (1 standard drink = 0.6 oz pur e alcohol) PHQ-2 Answer Date Recorded PHQ-2 Score 0 07/09/2024 Adolescent Education Answer Date Record ed Getting School Help Needed Not on file 11/16 Food Insecurity Answer Date Recorded Within the past 12 months, d id you worry that your food would run out before you got money to buy more? No 03/26/2024 Within the past 12 months, d id the food you bought just not last and you didn t have money to get more? No 03/26/2024 Housing Stability Answer Date Recorded Do you have housing? (Minesh brar is defined as stable permanent housing and does not include staying outside in a car, in a tent, in an abandoned building, in an overnight half-way, or couch-surfing.) Yes 03/26/2024 Are you worried about losing your housing? No 03/26/2024 Financial Resource Strain Answer Date R ecorded Within the past 12 months, h ave you or your family members you live with been unable to get utilities (heat, electricity) when it was really needed? No 03/26/2024 Transportation Needs Answer Date Record ed Within the past 12 months, h as lack of transportation kept you from medical appointments, getting your medicines, non-medical meetings or appointments, work, or from getting things that you need? No 03/26/2024 Interpersonal Safety Answer Date Record ed Do you feel physically and e motionally safe where you currently live? Yes 03/26/2024 Within the past 12 months, h ave you been hit, slapped, kicked or otherwise physically hurt by someone? No 03/26/2024 Within the past 12 months, h ave you been humiliated or emotionally abused in other ways by your partner or ex-partner? 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 Epilepsy Care Progress Note Patient: Kisha Gandara : 1945 Age: [age] year old Today's Office Visit: 07/09/2024 Epilepsy Data: Patient History Primary Epileptologist/Provider: (Colette) Birgit Whipple M.D. Epilepsy Syndrome: (P) Localization-related epilepsy unspecified Age of Onset: (P) 54 Etiology : (P) Unknown Other Relevant Dx/ Issues: (P) Inpatient evaluations 01/04 and 02/03. [facility] consulation 12/04 for nonconvulsive status epilepticus. History of Depakote-induced hyperammonemia. Tests/Surgery History Last EEG: (P) 01/30/10 Last MRI: (P) 01/10/10 Seizure Record Seizure Type 1: (P) Complex partial seizures unspecified Seizure Type 2: (P) Tonic-clonic seizures History of Present Illness: Ms. Beard presents to the clinic for a follow up on her epilepsy and tremors. Accompanied by her Pratik who contributes to history. Seizures have been controlled, believes last seizure was in 2009. In February 2024 patient had pneumonia and spent 8 days in the hospital. Patient was then dischargedto transitional care center. However, due to low systolic blood pressures patient was sent back to ED and ftb hypovolemic w/ elevation in [place]. Per chart review and patient history this episode was likely secondary to new BP medication and poor PO intake. She was subsequently discharged the after dayback to transitional care center. Patient is now back at home however, she states she is still really weak and is currently using a wheelchair which she was only using in the kitchen previously. Patient is participating in PT but today is the last day of her PT. Lives with her partner Pratik. Her tremors have been worse since February, but has transitioned to heavy utensils as well as doublehandled cups with covers which has helped a lot. She states that she notices it more and that the intensity of the tremors are a little worse as well. She is taking primidone 250 mg in the morning. She is taking Depakote 750 mg bid. She is also taking Lyrica 100-50-50 mainly for neuropathy and primidone 250 mg am for tremors. Has been started on a variety of new heart medications for atrial fibrillation and HTN medications were changed following ED visit for hypotension in February. She denies N/V or changes in mood ASD levels 04/13/22: Depakote: 10 Pregabalin: 2.6 Primidone: 5.4 ASD levels on 03/27/24: Valproic acid level 31.2 Current Outpatient Medications Medication Sig Dispense Refill acetaminophen (TYLENOL) 500 MG tablet Take 1,000 mg by mouth every 6 hours as needed for pain. apixaban ANTICOAGULANT (ELIQUIS) 5 MG tablet Take 5 mg by mouth 2 times daily. aspirin 81 MG tablet Take by mouth daily atorvastatin (LIPITOR) 20 MG tablet Take 20 mg by mouth daily. benzonatate (TESSALON) 100 MG capsule Take 100 mg by mouth 3 times daily. cholecalciferol (VITAMIN D3) 25 mcg (1000 units) capsule Take 1 capsule by mouth daily. digoxin (LANOXIN) 250 MCG tablet Take 0.5 tablets (125 mcg) by mouth daily. Hold if pulse is 55 or less diltiazem ER (DILT-XR) 120 MG 24 hr capsule Take 1 capsule (120 mg) by mouth daily. divalproex sodium extended-release (DEPAKOTE ER) 250 MG 24 hr tablet Take 3 tablets (750 mg) by mouth 2 times daily - Oral 540 tablet 3 insulin glargine (LANTUS PEN) 100 UNIT/ML pen Inject 10 Units subcutaneously daily. lactobacillus acidophilus and bulgaricus (FLORANEX) Take 1 tablet by mouth 3 times daily. With meals metoprolol tartrate (LOPRESSOR) 25 MG tablet Take 25 mg by mouth 2 times daily. Multiple Vitamin (DAILY MULTIVITAMIN PO) Take 1 tablet by mouth daily. [place]-3 Fatty Acids (OMEGA-3 FISH OIL PO) Take 1 tablet by mouth daily. potassium chloride ER (K-TAB) 20 MEQ CR tablet Take 20 mEq by mouth 2 times daily. pregabalin (LYRICA) 100 MG capsule TAKE 1 CAPSULE (100 MG) BY MOUTH EVERY MORNING 90 capsule 1 pregabalin (LYRICA) 50 MG capsule TAKE 1 CAPSULE (50 MG) BY MOUTH DAILY (WITH LUNCH) AND 1 CAPSULE (50 MG) EVERY EVENING. 180 capsule 1 primidone (MYSOLINE) 250 MG tablet Take 1 tablet (250 mg) by mouth every morning 90 tablet 3 sodium chloride 1 GM tablet Take 1 g by mouth 3 times daily. torsemide (DEMADEX) 20 MG tablet Take 1 tablet (20 mg) by mouth daily. Medication Notes: AED Medication Compliance: compliant most of the time Using a pill box: Yes Exam: There were no vitals taken for this visit. Wt Readings from Last 5 Encounters: 03/28/24 278 lb 14.1 oz (126.5 kg) 05/23/23 277 lb (125.6 kg) 04/26/22 270 lb (122.5 kg) 04/06/19 269 lb 12.8 oz (122.4 kg) 02/06/18 271 lb 6.4 oz (123.1 kg) General Appearance: Alert, awake, pleasant, NAD Gait: Deferred, using wheelchair Attention Span: Normal Language: No aphasia or dysarthria Extraocular Movements: Intact Coordination: Abnormal - coordination appears appropriate with substantial underlying tremor noted Visual Chan: Normal Facial Sensation: Intact to light touch Facial Strength: Normal Tongue Strength: Normal Limb Strength: Abnormal - appropriate strength bilaterally in UE, substantial bilaterally in LE, L weaker then R Limb Tone: Normal Limb Sensation: Intact to light touch 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 She is taking Depakote 750 mg bid. She is also taking Lyrica 100-50-50 mainly for neuropathy and primidone 250 mg am for tremors. Plan to increase Primidone. 2. Tremors: essential tremors, tremors worsened on Depakote and improved on primidone. She occasionally gets them before she takes her primidone in the morning. - Continue Depakote 750 mg bid - Increase primidone to 250 mg am, 125 mg at noon. - Continue Lyrical 100-50-50 mg per day - Obtain ASD levels - Follow-up in 1 year Jose Angel Sam, MS4 07/09/24 I was present with the medical student who participated in the service and in the documentation of the note. I have verified the history and personally performed the physical exam and medical decision making. I agree with the assessment and plan of care as edited above. Birgit Whipple MD documented in this encounter Nursing Notes * Dayo Gutierrez LPN - 07/09/2024 10:30 AM CDT Meds taken 8:00 AM. Lab draw 11:25 AM. Dayo Gutierrez LPN documented in this encounter Plan of Treatment Upcoming Encounters Date Type Department Care Team (Late st Contact Info) Description 07/13/2025 10:30 AM CDT Office Visit [facility] Epilepsy Care [address] [facility] [facility] [address] [place] [phone] Birgit Whipple MD [address] [place] [id number] documented as of this encounter Procedures Procedure Name Priority Date/Time Associated Diagnosis Comments VALPROIC ACID FREE AND TOTAL Routine 07/09/2024 11:28 AM CDT Focal (motor) epilepsy (H) documented in this encounter Results * (ABNORMAL) Valproic Acid Free & Total (07/09/2024 11:28 AM CDT) Valproic Acid Free 19 7 - 23 ug/mL 07/13/2024 10:43 AM CDT [facility] Valproic Acid Total 76 50 - 125 ug/mL 07/13/2024 10:43 AM CDT [facility] Valproic Acid, Percent Free 25(H) 5 - 18 % 07/13/2024 10:43 AM CDT [facility] Comment: The result is physiologically unusual. Free valproic acid concentrations are typically about 5-18% of the total valproic acid concentration. INTERPRETIVE INFORMATION: VPA-percent Free Valproic Acid, Total [...] include headache, somnolence and dizziness. Performed By: [facility] [address] [place] [address] Sales Representative [employer]: Zeeshan Richard MD, PhD CLIA Number: [id number] Blood STRUCTURE OF LEFT HAND / Unknown Venipuncture / Unknown 07/09/2024 11:28 AM CDT 07/09/2024 2:03 PM CDT Birgit Whipple MD LAB - BLOOD ORDERABLES F inal Result [facility] [address] [place] [address], [facility] [phone] documented in this encounter Visit Diagnoses Diagnosis Focal (motor) epilepsy (H)- Primary Localization-related (focal) (partial) epilepsy and epileptic syndromes with simple partial seizures, without mention of intractable epilepsy Tremor Abnormal involuntary movements 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 (H) documented in this encounter Additional Health Concerns Assessment Noted Time PHQ-9 Depression Total Score: 3 04/27/19 23 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
[2024-08-15] VITALS (8 sets, daily range): BP systolic 106–127; BP diastolic 61–72; PULSE 93–106; RESP 16–18; TEMP 36.8–37.2; O2SAT 93–95; BMI 35.4
--- NOTE | 2024-08-15 01:38 | CRLHL7_ITS ---
For Patients: As a result of the Century Cures Act, medical imaging exams and procedure reports are released immediately into your electronic medical record. You may view this report before your referring provider. If you have questions, please contact your health care provider. Indication: Altered mental status, anticoagulated Technique: Noncontrast CT through the head with multiplanar reformats Comparison: None Findings: Brain: No acute hemorrhage. No acute infarct. No significant mass effect or midline shift. No gross evidence of a mass lesion or cerebral edema. Moderate chronic microvascular ischemic disease and global parenchymal volume loss. Ventricles: No acute abnormality appreciated. Orbits, sinuses, mastoids: No acute abnormality appreciated. Calvarium and soft tissues: No acute abnormality appreciated. Impression: No acute abnormality appreciated. Please note that all CT scans at this facility use dose modulation, iterative reconstruction, and/or weight-based dosing when appropriate to reduce radiation dose to as low as reasonably achievable. Dictated by Subhash Gutierrez MD @ 08/15/2024 2:52:49 AM (Electronically Signed)
--- NOTE | 2024-08-15 01:38 | CRLHL7_ITS ---
For Patients: As a result of the Cures Act, medical imaging exams and procedure reports are released immediately into your electronic medical record. You may view this report before your referring provider. If you have questions, please contact your health care provider. Indication: Altered mental status Technique: Two views of the chest Comparison: Chest radiograph performed 03/21/2024 Findings/Impression: Cardiomegaly and diffuse pulmonary haziness with prominent interstitial markings, concerning for pulmonary edema or atypical/viral pneumonia. Dictated by Subhash Gutierrez MD @ 08/15/2024 2:51:47 AM (Electronically Signed)
--- NOTE | 2024-08-15 01:43 | ED.GENADULT ---
HPI - General Adult General Chief complaint: Weakness Stated complaint: Weakness Time Seen by Provider: 08/15/24 01:28 Source: patient, family and EMS Mode of arrival: EMS History of Present Illness HPI narrative: 78-year-old female presents to the emergency department by EMS with significant other for evaluation of weakness. Patient reports that it started suddenly at 10:30 p.m. which is about 2 hours prior to arrival. reports that she has been off for about 24 hours. Gradual onset of symptoms. No localizing infection. No dysuria, productive cough, falls or other focal changes. No chest pain or shortness of breath. No exertional dyspnea over her baseline. Says that she has been sleepier than usual, seems to get confused and side tract with activities, stamina is down. She has a history of pneumonia this past February for which she was hospitalized for 8 days, did require a couple of months in subacute rehab also. No vomiting, no diarrhea, no new injury or trauma. No recent medication changes. Has an reports that she does have a history of seizure disorder even though she denied to me when we discussed it. She also has a history of heart failure, diabetes, neuropathy. Prior hospitalization reviewed. She is anticoagulated on Eliquis since the early part of the year due to new onset AFib. No obvious fever. No open sores or wounds. Has been has not identified any obvious source for her symptoms. Past medical history notable for significant debility secondary to obesity, chronic medical problems including those listed above. Also has remote history of breast cancer. Current home medications are Eliquis, pregabalin, primidone, metoprolol, insulin, Jardiance, Depakote, diltiazem, digoxin, atorvastatin. ROS is notable for the generalized symptoms as above, otherwise she denies times 12 systems for any localizing symptoms. Related Data Home Medications ?Medication ?Instructions ?Recorded ?Confirmed aspirin 81 mg tablet,delayed 81 mg PO DAILY 11/02/21 07/15/24 release cholecalciferol (vitamin D3) 25 25 mcg PO DAILY 11/02/21 07/15/24 mcg (1,000 unit) capsule multivitamin with minerals 1 tab PO DAILY 11/02/21 07/15/24 omega [id number]-fish oil 100 1 cap PO DAILY 11/02/21 07/15/24 mg-160 mg-1,000 mg capsule (Fish Oil) pregabalin 50 mg capsule 50 mg PO .6 Pm, 10PM 11/02/21 07/15/24 divalproex 250 mg tablet,extended 750 mg PO BID 12/21/22 07/15/24 release 24 hr primidone 250 mg tablet 250 mg PO DAILY 12/21/22 07/15/24 pregabalin 100 mg capsule (Lyrica) 100 mg PO QDAY 06/02/24 07/15/24 primidone 125 mg tablet 125 mg PO QDAY 07/15/24 07/15/24 Previous Rx's ?Medication ?Instructions ?Recorded Lactobacillus acidophilus 0.5 mg 100 mmu cells PO TIDWM #30 tabs 03/12/24 (100 million cell) tablet acetaminophen 500 mg tablet 1,000 mg (2 x 500 mg) PO Q6H PRN 03/12/24 #120 tabs insulin glargine 100 unit/mL (3 10 unit (0.1 mL) subcut HS #3 mL 03/12/24 mL) subcutaneous pen (Lantus Solostar U-100 Insulin) blood sugar diagnostic (Accu-Chek #100 ea 06/16/24 Guide test strips) lancets (Accu-Chek Softclix #100 ea 06/16/24 Lancets) atorvastatin 20 mg tablet 20 mg PO QHS #90 tabs 06/23/24 digoxin 250 mcg (0.25 mg) tablet 250 mcg PO DAILY #90 tabs 06/23/24 potassium chloride 20 mEq 20 meq PO BID #60 tabs 06/23/24 tablet,extended release torsemide 20 mg tablet 20 mg PO DAILY@0800 #90 tabs 06/23/24 diltiazem HCl 240 mg 240 mg PO DAILY #90 caps 06/29/24 capsule,extended release 24 hr empagliflozin 10 mg tablet 10 mg PO QDAY #90 tabs 06/29/24 (Jardiance) pen needle, diabetic 31 gauge x #100 ea 06/29/2405/10 metoprolol tartrate 25 mg tablet 25 mg PO BID #60 tabs 07/08/24 apixaban 5 mg tablet (Eliquis) 5 mg PO BID #180 tabs 07/27/24 Allergies Allergy/AdvReac Type Severity Reaction Status Date / Time oxcarbazepine Allergy Severe Rash Verified 08/15/24 03:52 lacosamide Allergy Intermediate hallucinati Verified 08/15/24 03:52 ons Bee venom Allergy Unknown Uncoded 08/15/24 03:52 [facility] Medical History Tremor ?R25.1 - Tremor, unspecified (ICD-10) Atrial fibrillation ?I48.91 - Unspecified atrial fibrillation (ICD-10) Gastroesophageal reflux disease (11/21/12) ?K21.9 - Gastro-esophageal reflux disease without esophagitis (ICD-10) Morbid obesity ?E66.01 - Morbid (severe) obesity due to excess calories (ICD-10) Hyperlipidemia (11/21/12) ?E78.5 - Hyperlipidemia, unspecified (ICD-10) Transaminitis ?R74.01 - Elevation of levels of liver transaminase levels (ICD-10) Breast cancer ?C50.919 - Malignant neoplasm of unspecified site of unspecified female breast (ICD-10) History of malignant neoplasm of breast ?Z85.3 - Personal history of malignant neoplasm of breast (ICD-10) History of ischemic colitis (2017) ?Z87.19 - Personal history of other diseases of the digestive system (ICD-10) Encounter for screening for COVID-19 ?Z11.52 - Encounter for screening for COVID-19 (ICD-10) Surgical History Status post total right knee replacement ?Z96.651 - Presence of right artificial knee joint (ICD-10) Status post total knee replacement ?Z96.659 - Presence of unspecified artificial knee joint (ICD-10) History of bilateral mastectomy ?Z90.13 - Acquired absence of bilateral breasts and nipples (ICD-10) Social History What is your current living situation?: I presently have a place to live Problems where you live: no known problems In the past 12 months, utilities in danger of being shut off: no In past 12 months, lack of transportation kept you from medical appts, meetings, work, or getting things needed for daily living: no In the past 12 mos, have been you worried that your food would run out before you had money to buy more?: never true In the past 12 mos, the food you bought just didn't last and you didn't have money to buy more?: never true Highest level of school completed/degree received: Bachelor's degree Smoking Status: Never smoker How often do you have a drink containing alcohol: never AUDIT-C Alcohol total score: 0 Non-prescribed substance use: denies use How often does anyone, including family, friends and others, physically hurt you: never How often does anyone, including family, friends and others, insult or talk down to you: never How often does anyone, including family, friends and others, threaten you with harm: never How often does anyone, including family, friends and others, scream or curse at you: never service: No Exam Const: Vital Signs, click to edit/add: Vital Signs - 24 hr 08/15/24 00:44 08/15/24 01:41 Temperature 98.9 F Pulse Rate [Pulse Oximeter] 94 Respiratory Rate 18 Blood Pressure [Le ft Upper Arm] 126/69 Pulse Oximetry 95 95 Oxygen Delivery Me thod Room Air Documenting provider has reviewed patient's vital signs: yes Common normals: no apparent distress General appearance: cooperative and well kempt HENMT: Common normals: normocephalic, moist oral mucous membranes and oropharynx normal Head and scalp: normocephalic Face and sinus: normal facial exam Mouth: oral and palatal mucosa normal Throat: posterior oropharynx normal Eye: Common normals: PERRL, EOMs intact bilaterally and conjunctivae normal General eye: normal appearance of both eyes Conjunctiva: conjunctiva(e) normal Pupil: PERRL Neck & C-Spine: Common normals: full ROM and no lymphadenopathy General: normal visual inspection Resp: Common normals: normal respiratory effort, no use of accessory muscles and clear to auscultation bilaterally Effort & inspection: able to speak in complete sentences Auscultation: clear to auscultation bilaterally Cardio: Common normals: regular rate, regular rhythm, S1 normal heart sound, S2 normal heart sound and no murmurs Rate: regular rate Rhythm: regular rhythm Heart sounds: S1 normal and S2 normal GI: Common normals: soft to palpation, non-tender and no hepatosplenomegaly Palpation: soft and no hepatosplenomegaly Other: Abdomen seems nondistended but bowel sounds are hyperactive throughout. Surgical scarring consistent with prior cholecystectomy and what looks to be a hernia repair. : Common normals: no CVA tenderness Bladder/kidney exam: no CVA tenderness Back & Pelvis: Common normals: no CVA tenderness and thoracic and lumbar spine normal to inspection Extremity: Other: Trace bilateral pitting edema, slight warmth to the bilateral ankles but no open sores or suspicion of cellulitis. The with obesity, it is difficult to assess the joints well but there is no obvious redness, effusion or warmth. Everything does appear quite symmetric. Neuro: Common normals: moves all extremities Speech: speech normal Other: Global generalized weakness with normal speech. Alert but insight seems fair at best. Movements are symmetric and she does have spontaneous movement and strength in all extremities but just global weakness overall. She cannot pull herself up with her arms but can hold herself steady upright for pulmonary exam. Psych: Appearance: well kempt Activity/motor behavior: appropriate eye contact Insight: fair Judgement: fair Skin: Common normals: no rashes or lesions noted General skin exam: no rashes or lesions noted Course Course ED Course: 78-year-old female with weakness for the past 24 hours, escalating over the past 2 hours with generalized body aches and malaise. Suspect infectious etiology. No obvious signs of sepsis on initial vital signs. Differential diagnosis including occult urinary tract infection. Pneumonia, acute cardiac process, electrolyte abnormality, dehydration, acidosis, viral infection, intracranial hemorrhage, amongst others. Will obtain head CT, typical sepsis labs. Chest x-ray, urinalysis, EKG. Consider CT of abdomen and pelvis if initial workup unrevealing. Reevaluation(s) Time of Reevaluation #1: 04:54 Reevaluation #1: Counseled patient that all findings do appear stable and chronic. I inquire more about her medications and specifically ask about her medications for her tremors and neuropathy. I do think it is time that we decrease those medications. thinks they may have been increased. I counseled them that this certainly could be contributing to increased weakness. I have advised him to lower back to previous doses and follow up with primary care provider to discuss further. I also let him know that the [place] especially is known to not age well as patient has become more debilitated and decreasing this may be worthwhile to improve her functional status as well. I did not detect any acute infection. The chest x-ray suggested possibly a viral infiltrate but the CT rules this out. I think we are seeing manifestations of her obesity that just lead to a hazy your chest x-ray. There were no other intra-abdominal or head findings that seem acute. Her labs look great. I think polypharmacy in an elderly woman that is becoming increasingly debilitated by her chronic conditions is the main diagnosis here. is in agreement. I inquire about their plans for continued independent living for her. He reports that he will start looking into other options. Alarm symptoms reviewed and extensively discussed that would warrant ER presentation. He verbalizes understanding and agreement. Vital Signs Vital signs: Initial Vital Signs Temperature 98.9 F 08/15/24 00:44 Temperature Source Temporal Artery Scan 08/15/24 00:44 Pulse Rate 94 08/15/24 00:44 Respiratory Rate 18 08/15/24 00:44 Blood Pressure 126/69 08/15/24 00:44 Blood Pressure Mean 88 08/15/24 00:44 Blood Pressure Position Sitting 08/15/24 00:44 Pulse Oximetry 95 08/15/24 00:44 Oxygen Delivery Method Room Air 08/15/24 00:44 Vital Signs Temperature 98.9 F 08/15/24 00:44 Pulse Rate 94 08/15/24 00:44 Respiratory Rate 18 08/15/24 00:44 Blood Pressure 126/69 08/15/24 00:44 Pulse Oximetry 95 08/15/24 00:44 Oxygen Delivery Method Room Air 08/15/24 00:44 Temperature 98.9 F 08/15/24 00:44 Pulse Rate 94 08/15/24 00:44 Respiratory Rate 18 08/15/24 00:44 Blood Pressure 126/69 08/15/24 00:44 Pulse Oximetry 95 08/15/24 01:41 Oxygen Delivery Method Room Air 08/15/24 00:44 Medical Decision Making Lab Data Lab results reviewed: Yes I reviewed the patient's lab results Lab results narrative: Labs are quite reassuring. No significant leukocytosis, procalcitonin is normal. Electrolytes are stable. Renal function looks good. CRP not elevated. BNP is stable for patient, troponins negative, urinalysis with glucose which is expected on Jardiance but no infection. Normal viral swabs. Labs: Lab Results 08/15/24 08/15/24 Range/Units 00:45 02:12 WBC 7.38 (4.50-11.00) K/uL RBC 4.94 (4.00-5.20) m/uL Hgb 14.8 (12.0-16.0) gm/dL Hct 46.2 (33.0-51.0) % MCV 94 (80-100) fL MCH 30 (26-34) pg MCHC 32 (32-36) gm/dL RDW Coeff of Valerie 15.6 H (11.5-15.5) % Plt Count 136 L (140-440) K/uL Neut % (Auto) 61.6 (42.0-72.0) % Lymph % (Auto) 25.5 (20-44) % [place] % (Auto) 10.4 (0.0-11.0) % Eos % (Auto) 1.4 (0.0-7.0) % Baso % (Auto) 0.4 (0.0-3.0) % Neut # (Auto) 4.55 (1.7-7.0) K/uL Lymph # (Auto) 1.88 (0.90-2.90) K/uL [place] # (Auto) 0.80 (0.00-0.90) K/UL Eos # (Auto) 0.10 (0.00-0.50) K/uL Baso # (Auto) 0.03 (0.00-0.30) K/uL Abs Immat Gran (auto) 0.05 (0.00-0.30) K/uL Imm/Tot Granulo (auto) 0.7 % VBG pH 7.458 H (7.32-7.43) VBG pCO2 39 L (40-50) mmHG VBG pO2 < 30.1 (25-47) mmHG VBG HCO3 28 (21-28) mmol/L Sodium 138 (135-149) mmol/L Potassium 4.4 (3.6-5.1) mmol/L Chloride 104 (96-114) mmol/L Carbon Dioxide 25 (20-32) mmol/L Anion Gap 9 (7-15) mEq/L BUN 25 (7-30) mg/dL Creatinine 0.8 (0.5-1.5) mg/dL Estimated Creat Clear 38.35 Estimated GFR 75 ml/min Glucose 188 H (60-115) mg/dL Lactate 2.6 H (0.5-1.9) mmol/L Calcium 9.1 (8.4-10.6) mg/dL Total Bilirubin 0.7 (0.1-1.5) mg/dL AST 60 H (12-35) U/L ALT 35 (4-35) U/L Alkaline Phosphatase 114 (40-150) U/L Troponin I < 0.01 (0.01-0.04) ng/mL C-Reactive Protein 4.4 H (0.5-1.0) mg/dL NT-Pro-B Natriuret Pep 1770 H (See Note) pg/mL Total Protein 7.6 (6.0-8.3) g/dL Albumin 3.8 (3.3-5.0) g/dL Procalcitonin 0.16 (<0.50) ng/mL Urine Color Yellow (Yellow) Urine Appearance Clear (Clear) Urine pH 8.0 (5.0-8.5) Ur Specific Sacul 1.015 (1.000-1.030) Urine Protein Negative (Negative) Urine Glucose (UA) 3+ A (Negative) Urine Ketones 1+ A (Negative) Urine Blood 1+ A (Negative) Urine Nitrite Negative (Negative) Urine Bilirubin Negative (Negative) Urine Urobilinogen 1.0 (0.2-1.0) Ur Leukocyte Esterase Trace A (Negative) Urine RBC 0-2 (0-2) Urine WBC 0-2 (0-5) Ur Squamous Epith Cells None (None-Few) Urine Bacteria None (None) SARS-CoV-2 (PCR) Negative SARS-CoV-2 (Negative) Influenza Type A (PCR) Negative PCR FLU A (Negative) Influenza Type B (PCR) Negative PCR FLU B (Negative) RSV (PCR) Negative PCR RSV (Negative) Imaging Data CT Chest/Ab/Pelvis: Attestation: I have reviewed the pertinent imaging results. My impression: No pneumonia, no pleural effusions. No evidence of intra-abdominal infection, obstruction or free air or fluid. Essentially no acute findings in any scan Radiologist's impression: ABDOMEN AND PELVIS: Liver: Unremarkable. Gallbladder and bile ducts: Cholecystectomy. Pancreas: Unremarkable. Spleen: Unremarkable. Adrenal glands: Unremarkable. Kidneys: Cysts and subcentimeter hypodense lesions too small to characterize, possibly cysts. Possible prior left partial nephrectomy. No hydronephrosis or obstructive urolithiasis. GI tract: Small hiatal hernia. Normal caliber bowel. No secondary signs of appendicitis. Colonic diverticuli, but no definite acute diverticulitis. Vascular structures: Unremarkable. Lymph nodes: Unremarkable. Peritoneum/Retroperitoneum/Abdominal Wall: Unremarkable. No free air or significant free fluid. Pelvic Organs: Bladder is collapsed with catheter in place. Hysterectomy. Bones and superficial soft tissues: No acute or suspicious lesions. IMPRESSION: 1. No definite acute findings to explain the patient`s symptoms. 2. 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 Please note that all CT scans at this facility use dose modulation, iterative reconstruction, and/or weight-based dosing when appropriate to reduce radiation dose to as low as reasonably achievable. Dictated by Mitch Dang MD @ 08/15/2024 4:08:25 AM Chest x-ray: Attestation: I have reviewed the pertinent imaging results. My impression: Difficult to interpret with obesity but no obvious pleural effusion. Cardiomegaly appears stable from prior Radiologist's impression: Findings/Impression: Cardiomegaly and diffuse pulmonary haziness with prominent interstitial markings, concerning for pulmonary edema or atypical/viral pneumonia. Dictated by Subhash Gutierrez MD @ 08/15/2024 2:51:[address] scan - head: Attestation: I have reviewed the pertinent imaging results. My impression: No signs of intracranial hemorrhage, injury or acute abnormality Radiologist's impression: Findings: Brain: No acute hemorrhage. No acute infarct. No significant mass effect or midline shift. No gross evidence of a mass lesion or cerebral edema. Moderate chronic microvascular ischemic disease and global parenchymal volume loss. Ventricles: No acute abnormality appreciated. Orbits, sinuses, mastoids: No acute abnormality appreciated. Calvarium and soft tissues: No acute abnormality appreciated. Impression: No acute abnormality appreciated. Please note that all CT scans at this facility use dose modulation, iterative reconstruction, and/or weight-based dosing when appropriate to reduce radiation dose to as low as reasonably achievable. Dictated by Subhash Gutierrez MD @ 08/15/2024 2:52:49 AM Discharge Plan Discharge Clinical Impression: Physical debility, Polypharmacy Patient Disposition: Home w/ Parent or Adult Condition: Stable Instructions: Weakness (ED) Additional Instructions: As we discussed, there does not seem to be an acute infection, heart failure, heart attack, electrolyte abnormality, dehydration or other reason for the worsening weakness today. I think that her overall condition is quite poor and it may be time to decrease her pregabalin and primidone to help with this weakness and sedation. I would recommend that you decrease both by about 1/3 for the next few days and follow-up with your primary care provider to discuss the next steps. I do fear that she will not be able to live independently for much longer without improvement in her condition. Unfortunately, I did not find any acutely treatable things that would improve your situation. Please try the medication reductions we discussed and be in close follow-up with her primary care team to discuss additional options. Activity Level: Activity as Tolerated Discharge Diet: Regular Prescriptions: No Action pregabalin 50 mg capsule 50 mg PO .6 Pm, 10PM cholecalciferol (vitamin D3) 25 mcg (1,000 unit) capsule 25 mcg PO DAILY aspirin 81 mg tablet,delayed release (DR/EC) 81 mg PO DAILY Fish Oil 100-160-1,000 mg capsule 1 cap PO DAILY multivitamin with minerals Tablet 1 tab PO DAILY divalproex 250 mg tablet extended release 24 hr 750 mg PO BID primidone 250 mg tablet 250 mg PO DAILY pregabalin [Lyrica] 100 mg capsule 100 mg PO QDAY digoxin 250 mcg (0.25 mg) tablet 250 mcg PO DAILY Qty: 90 3RF atorvastatin 20 mg tablet 20 mg PO QHS Qty: 90 2RF potassium chloride 20 mEq tablet extended release 20 meq PO BID Qty: 60 2RF torsemide 20 mg tablet 20 mg PO DAILY@0800 Qty: 90 3RF primidone 125 mg tablet 125 mg PO QDAY Rx Instructions: At noon acetaminophen 500 mg Tablet 1,000 mg PO Q6H PRNQty: 120 0RF insulin glargine [Lantus Solostar U-100 Insulin] 100 unit/mL (3 mL) Insulin Pen 10 unit subcut HS Qty: 3 0RF Lactobacillus acidophilus 0.5 mg (100 million cell) Tablet 100 mmu cells PO TIDWM Qty: 30 0RF (DME) Accu-Chek Guide test strips Strip See Rx Instructions .Route Qty: 100 3RF Rx Instructions: Patient to test once daily (DME) lancets [Accu-Chek Softclix Lancets] Misc See Rx Instructions .Route Qty: 100 3RF Rx Instructions: Patient to use one time daily Jardiance 10 mg tablet 10 mg PO QDAY Qty: 90 0RF (DME) pen needle, diabetic 31 gauge x 3/16 needle See Rx Instructions .ROUTE .COMPLEX Qty: 100 0RF Dose Instruction: USE TO INJECT THREE TIMES DAILY Rx Instructions: USE TO INJECT ONCE DAILY diltiazem HCl 240 mg capsule,extended release 24hr 240 mg PO DAILY Qty: 90 0RF metoprolol tartrate 25 mg tablet 25 mg PO BID Qty: 60 3RF Eliquis 5 mg tablet 5 mg PO BID Qty: 180 3RF Follow Up/Referrals: Chele Mena MD [Primary Care Provider, Internal Medicine] Stand Alone Forms: [email or web address] Info Instructions
[2024-08-15 01:46] LABS: Basophils Absolute Auto 0.03 K/uL (0.00-0.30); Basophils Percent Auto 0.4 % (0.0-3.0); Eosinophils Percent Auto 1.4 % (0.0-7.0); Hematocrit 46.2 % (33.0-51.0); Hemoglobin* 14.8 gm/dL (12.0-16.0); Immature Granulocytes Abs Auto 0.05 K/uL (0.00-0.30); Immature Granulocytes Pct Auto 0.7 %; Lymphocytes Absolute Auto 1.88 K/uL (0.90-2.90); Lymphocytes Percent Auto 25.5 % (20-44); Mean Corpuscular HGB Conc 32 gm/dL (32-36); Mean Corpuscular Hemoglobin 30 pg (26-34); Mean Corpuscular Volume 94 fL (80-100); Monocytes Percent Auto 10.4 % (0.0-11.0); Neutrophils Absolute Auto 4.55 K/uL (1.7-7.0); Neutrophils Percent Auto 61.6 % (42.0-72.0); Platelet Count* 136 K/uL (140-440); RDW Coefficient of Variation % 15.6 % (11.5-15.5); Red Blood Count 4.94 m/uL (4.00-5.20); White Blood Count* 7.38 K/uL (4.50-11.00)
[2024-08-15 01:48] LABS: Albumin* 3.8 g/dL (3.3-5.0); Chloride* 104 mmol/L (96-114); Potassium* 4.4 mmol/L (3.6-5.1); Sodium* 138 mmol/L (135-149)
[2024-08-15 01:51] LABS: Alanine Aminotransferase* 35 U/L (4-35); Alkaline Phosphatase* 114 U/L (40-150); Anion Gap 9 mEq/L (7-15); Aspartate Amino Transferase* 60 U/L (12-35); Bilirubin Total* 0.7 mg/dL (0.1-1.5); Blood Urea Nitrogen* 25 mg/dL (7-30); Carbon Dioxide* 25 mmol/L (20-32); Creatinine* 0.8 mg/dL (0.5-1.5); Est. Creatinine Clearance* 38.35; Estimated Glomerular Filt Rate 75 ml/min; Slide Review Reflex No
[2024-08-15 01:52] LABS: Calcium* 9.1 mg/dL (8.4-10.6); Glucose* 188 mg/dL (60-115); HCO3 VBG 28 mmol/L (21-28); Lactate Sepsis w/Reflex* 2.6 mmol/L (0.5-1.9); PCO2 VBG 39 mmHG (40-50); PO2 VBG < 30.1 mmHG (25-47); Total Protein* 7.6 g/dL (6.0-8.3); pH VBG 7.458 (7.32-7.43)
[2024-08-15 01:54] LABS: C Reactive Protein* 4.4 mg/dL (0.5-1.0)
[2024-08-15 02:01] LABS: NT Pro B Type NatriureticPept* 1770 pg/mL (See Note)
[2024-08-15 02:06] LABS: Troponin I* < 0.01 ng/mL (0.01-0.04)
[2024-08-15 02:09] LABS: Procalcitonin* 0.16 ng/mL (<0.50)
[2024-08-15 02:22] LABS: PCR FLU A Negative PCR FLU A (Negative); PCR FLU B Negative PCR FLU B (Negative); PCR RSV Negative PCR RSV (Negative); SARS PCR* Negative SARS-CoV-2 (Negative)
--- OUTSIDE RECORDS SUMMARY | 2024-08-15 02:23 | XMS_ITS | Continuity of Care Document ---
Author Organization [facility] Address [address] [place] [address] Insurance Providers Payer Plan Claims Address Claims Phone Policy Number Group Number Relation Employer Guarantor Name Guarantor Guarantor Address Guarantor Phone [employer] [address] [address], [place] [address] tel:[phone] [id number] [employer] Renetta Prueser [address] [place] [address] MEDIC ARE ATTN CLAIMS, [address] [address] [address] tel:[phone] [employer] Renetta Prueser [address] [place] [address] Part A Coins uranc [place] [id number] Self [employer] Renetta Prueser [address] [place] [address] Problems Condition ICD9 code ICD10 code SNOMED code Start Date End Date S tatus Encounter for screening for respiratory tuberculosis Z11.1 03/12/2024 Active Pneumonia, unspecified organism J18.9 03/12/2024 Active Sepsis, unspecified organism A41.9 03/12/2024 Active Hypo-osmolality and hyponatremia E87.1 03/12/2024 Active Weakness R53.1 03/12/2024 Active Hyperlipidemia, unspecified E78.5 03/12/2024 Active Pain, unspecified R52 03/12/2024 Act hortencia Type 2 diabetes mellitus without complications E11.9 03/12/2024 Act hortencia Hypokalemia E87.6 03/12/2024 Active Heart failure, unspecified I50.9 03/12/2024 Active Hypertensive heart disease with heart failure I11.0 03/12/2024 Active Unspecified atrial fibrillation I48.91 03/12/2024 Active Tachycardia, unspecified R00.0 03/12/2024 Active [facility] (current) use of insulin Z79.4 03/12/2024 Active Polyneuropathy, unspecified G62.9 03/12/2024 Active Elevation of levels of liver transaminase levels R74.01 03/12/2024 Active Epilepsy, unspecified, not intractable, without status epilepticus G40.909 03/12/2024 Active Gastro-esophageal reflux disease without esophagitis K21.9 03/12/2024 Active Personal history of malignant neoplasm of breast Z85.3 03/12/2024 Active Personal history of other diseases of the digestive system Z87.19 03/12/2024 Active Presence of right artificial knee joint Z96.651 03/12/2024 Act hortencia Acquired absence of bilateral breasts and nipples Z90.13 03/12/2024 Active Morbid (severe) obesity due to excess calories E66.01 03/12/2024 Ac tive Acute respiratory failure with hypoxia J96.01 03/12/2024 Active Acute pulmonary edema J81.0 03/12/2024 Active Unspecified adverse effect of drug or medicament, initial encounter T88.7XXA 03/12/2024 Active Other malaise R53.81 03/12/2024 Active Dependence on supplemental oxygen Z99.81 03/12/2024 Activ e [facility] (current) use of anticoagulants Z79.01 03/12/2024 Active [facility] (current) use of aspirin Z79.82 03/12/2024 Active Sepsis, unspecified organism A41.9 03/12/2024 Active Hypo-osmolality and hyponatremia E87.1 03/12/2024 Active Type 2 diabetes mellitus without complications E11.9 03/12/2024 Act hortencia Polyneuropathy, unspecified G62.9 03/12/2024 Active Epilepsy, unspecified, not intractable, without status epilepticus G40.909 03/12/2024 Active Gastro-esophageal reflux disease without esophagitis K21.9 03/12/2024 Active Personal history of malignant neoplasm of breast Z85.3 03/12/2024 Active Morbid (severe) obesity due to excess calories E66.01 03/12/2024 Ac tive Unspecified atrial fibrillation I48.91 03/12/2024 Active Elevation of levels of lactic acid dehydrogenase [LDH] R74.02 03/12/2024 Active Elevated C-reactive protein (CRP) R79.82 03/12/2024 Active Elevated white blood cell count, unspecified D72.829 03/12/2024 Active Encounter for prophylactic measures, unspecified Z29.9 03/31/2024 Active Hyperkalemia E87.5 03/25/2024 Active Hypotension, unspecified I95.9 03/25/2024 Active Anemia, unspecified D64.9 04/30/2024 A ctive History of falling Z91.81 04/30/2024 Ac tive Results Test Value / Unit Interpretation Reference Ran Blood chemistry[[id number]] Glucose [Mass/volume] in Ser um or Plasma [2345-7] 132 mg/dL N Blood chemistry[[id number]] Glucose [Mass/volume] in Ser um or Plasma [2345-7] 188 mg/dL N Blood chemistry[[id number]] Glucose [Mass/volume] in Ser um or Plasma [2345-7] 134 mg/dL N Blood chemistry[[id number]] Glucose [Mass/volume] in Ser um or Plasma [2345-7] 198 mg/dL N Blood chemistry[[id number]] Glucose [Mass/volume] in Ser um or Plasma [2345-7] 131 mg/dL N Blood chemistry[[id number]] Glucose [Mass/volume] in Ser um or Plasma [2345-7] 186 mg/dL N Blood chemistry[[id number]] Glucose [Mass/volume] in Ser um or Plasma [2345-7] 136 mg/dL N Blood chemistry[[id number]] Glucose [Mass/volume] in Ser um or Plasma [2345-7] 161 mg/dL N Blood chemistry[[id number]] Glucose [Mass/volume] in Ser um or Plasma [2345-7] 138 mg/dL N Blood chemistry[[id number]] Glucose [Mass/volume] in Ser um or Plasma [2345-7] 191 mg/dL N Blood chemistry[[id number]] Glucose [Mass/volume] in Ser um or Plasma [2345-7] 143 mg/dL N Blood chemistry[] Glucose [Mass/volume] in Ser um or Plasma [2345-7] 179 mg/dL N Blood chemistry[] Glucose [Mass/volume] in Ser um or Plasma [2345-7] 173 mg/dL N Blood chemistry[] Glucose [Mass/volume] in Ser um or Plasma [2345-7] 155 mg/dL N Blood chemistry[] Glucose [Mass/volume] in Ser um or Plasma [2345-7] 150 mg/dL N Blood chemistry[] Glucose [Mass/volume] in Ser um or Plasma [2345-7] 185 mg/dL N Blood chemistry[] Glucose [Mass/volume] in Ser um or Plasma [2345-7] 163 mg/dL N Blood chemistry[] Glucose [Mass/volume] in Ser um or Plasma [2345-7] 200 mg/dL N Blood chemistry[] Glucose [Mass/volume] in Ser um or Plasma [2345-7] 149 mg/dL N Blood chemistry[] Glucose [Mass/volume] in Ser um or Plasma [2345-7] 256 mg/dL N Blood chemistry[] Glucose [Mass/volume] in Ser um or Plasma [2345-7] 149 mg/dL N Blood chemistry[[id number]] Glucose [Mass/volume] in Ser um or Plasma [2345-7] 184 mg/dL N Blood chemistry[] Glucose [Mass/volume] in Ser um or Plasma [2345-7] 157 mg/dL N Blood chemistry[[id number]] Glucose [Mass/volume] in Ser um or Plasma [2345-7] 176 mg/dL N Glucose [Mass/volume] in Ser um or Plasma [2345-7] 176 mg/dL N Blood chemistry[] Glucose [Mass/volume] in Ser um or Plasma [2345-7] 139 mg/dL N Blood chemistry[] Glucose [Mass/volume] in Ser um or Plasma [2345-7] 208 mg/dL N Blood chemistry[] Glucose [Mass/volume] in Ser um or Plasma [2345-7] 157 mg/dL N Blood chemistry[] Glucose [Mass/volume] in Ser um or Plasma [2345-7] 186 mg/dL N Blood chemistry[] Glucose [Mass/volume] in Ser um or Plasma [2345-7] 139 mg/dL N Blood chemistry[] Glucose [Mass/volume] in Ser um or Plasma [2345-7] 191 mg/dL N Blood chemistry[] Glucose [Mass/volume] in Ser um or Plasma [2345-7] 112 mg/dL N Blood chemistry[] Glucose [Mass/volume] in Ser um or Plasma [2345-7] 183 mg/dL N Blood chemistry[] Glucose [Mass/volume] in Ser um or Plasma [2345-7] 133 mg/dL N Blood chemistry[] Glucose [Mass/volume] in Ser um or Plasma [2345-7] 200 mg/dL N Blood chemistry[] Glucose [Mass/volume] in Ser um or Plasma [2345-7] 143 mg/dL N Blood chemistry[] Glucose [Mass/volume] in Ser um or Plasma [2345-7] 194 mg/dL N Blood chemistry[] Glucose [Mass/volume] in Ser um or Plasma [2345-7] 174 mg/dL N Blood chemistry[] Glucose [Mass/volume] in Ser um or Plasma [2345-7] 191 mg/dL N Blood chemistry[] Glucose [Mass/volume] in Ser um or Plasma [2345-7] 160 mg/dL N Blood chemistry[] Glucose [Mass/volume] in Ser um or Plasma [2345-7] 211 mg/dL N Blood chemistry[] Glucose [Mass/volume] in Ser um or Plasma [2345-7] 153 mg/dL N Blood chemistry[] Glucose [Mass/volume] in Ser um or Plasma [2345-7] 204 mg/dL N Blood chemistry[] Glucose [Mass/volume] in Ser um or Plasma [2345-7] 165 mg/dL N Blood chemistry[[id number]] Glucose [Mass/volume] in Ser um or Plasma [2345-7] 217 mg/dL N Blood chemistry[] Glucose [Mass/volume] in Ser um or Plasma [2345-7] 155 mg/dL N Blood chemistry[] Glucose [Mass/volume] in Ser um or Plasma [2345-7] 219 mg/dL N Blood chemistry[] Glucose [Mass/volume] in Ser um or Plasma [2345-7] 135 mg/dL N Blood chemistry[] Glucose [Mass/volume] in Ser um or Plasma [2345-7] 225 mg/dL N Blood chemistry[] Glucose [Mass/volume] in Ser um or Plasma [2345-7] 170 mg/dL N Blood chemistry[] Glucose [Mass/volume] in Ser um or Plasma [2345-7] 194 mg/dL N Blood chemistry[] Glucose [Mass/volume] in Ser um or Plasma [2345-7] 158 mg/dL N Blood chemistry[] Glucose [Mass/volume] in Ser um or Plasma [2345-7] 186 mg/dL N Blood chemistry[[id number]] Glucose [Mass/volume] in Ser um or Plasma [2345-7] 174 mg/dL N Blood chemistry[] Glucose [Mass/volume] in Ser um or Plasma [2345-7] 212 mg/dL N Blood chemistry[] Glucose [Mass/volume] in Ser um or Plasma [2345-7] 190 mg/dL N Blood chemistry[[id number]] Glucose [Mass/volume] in Ser um or Plasma [2345-7] 198 mg/dL N Blood chemistry[[id number]] Glucose [Mass/volume] in Ser um or Plasma [2345-7] 192 mg/dL N Blood chemistry[] Glucose [Mass/volume] in Ser um or Plasma [2345-7] 231 mg/dL N Blood chemistry[[id number]] Glucose [Mass/volume] in Ser um or Plasma [2345-7] 202 mg/dL N Blood chemistry[[id number]] Glucose [Mass/volume] in Ser um or Plasma [2345-7] 251 mg/dL N Blood chemistry[] Glucose [Mass/volume] in Ser um or Plasma [2345-7] 154 mg/dL N Blood chemistry[] Glucose [Mass/volume] in Ser um or Plasma [2345-7] 200 mg/dL N Blood chemistry[] Glucose [Mass/volume] in Ser um or Plasma [2345-7] 156 mg/dL N Blood chemistry[] Glucose [Mass/volume] in Ser um or Plasma [2345-7] 228 mg/dL N Blood chemistry[] Glucose [Mass/volume] in Ser um or Plasma [2345-7] 160 mg/dL N Blood chemistry[] Glucose [Mass/volume] in Ser um or Plasma [2345-7] 210 mg/dL N Blood chemistry[] Glucose [Mass/volume] in Ser um or Plasma [2345-7] 160 mg/dL N Blood chemistry[] Glucose [Mass/volume] in Ser um or Plasma [2345-7] 207 mg/dL N Blood chemistry[] Glucose [Mass/volume] in Ser um or Plasma [2345-7] 148 mg/dL N Blood chemistry[] Glucose [Mass/volume] in Ser um or Plasma [2345-7] 214 mg/dL N Blood chemistry[] Glucose [Mass/volume] in Ser um or Plasma [2345-7] 167 mg/dL N Blood chemistry[] Glucose [Mass/volume] in Ser um or Plasma [2345-7] 197 mg/dL N Blood chemistry[] Glucose [Mass/volume] in Ser um or Plasma [2345-7] 172 mg/dL N Blood chemistry[] Glucose [Mass/volume] in Ser um or Plasma [2345-7] 280 mg/dL N Blood chemistry[] Glucose [Mass/volume] in Ser um or Plasma [2345-7] 222 mg/dL N Blood chemistry[] Glucose [Mass/volume] in Ser um or Plasma [2345-7] 265 mg/dL N Blood chemistry[] Glucose [Mass/volume] in Ser um or Plasma [2345-7] 193 mg/dL N Blood chemistry[] Glucose [Mass/volume] in Ser um or Plasma [2345-7] 256 mg/dL N Blood chemistry[] Glucose [Mass/volume] in Ser um or Plasma [2345-7] 158 mg/dL N Blood chemistry[] Glucose [Mass/volume] in Ser um or Plasma [2345-7] 210 mg/dL N Blood chemistry[] Glucose [Mass/volume] in Ser um or Plasma [2345-7] 167 mg/dL N Blood chemistry[] Glucose [Mass/volume] in Ser um or Plasma [2345-7] 294 mg/dL N Blood chemistry[] Glucose [Mass/volume] in Ser um or Plasma [2345-7] 183 mg/dL N Blood chemistry[] Glucose [Mass/volume] in Ser um or Plasma [2345-7] 234 mg/dL N Blood chemistry[] Glucose [Mass/volume] in Ser um or Plasma [2345-7] 180 mg/dL N Blood chemistry[] Glucose [Mass/volume] in Ser um or Plasma [2345-7] 279 mg/dL N Blood chemistry[] Glucose [Mass/volume] in Ser um or Plasma [2345-7] 189 mg/dL N Blood chemistry[] Glucose [Mass/volume] in Ser um or Plasma [2345-7] 285 mg/dL N Blood chemistry[] Glucose [Mass/volume] in Ser um or Plasma [2345-7] 179 mg/dL N Blood chemistry[] Glucose [Mass/volume] in Ser um or Plasma [2345-7] 254 mg/dL N Blood chemistry[] Glucose [Mass/volume] in Ser um or Plasma [2345-7] 158 mg/dL N Blood chemistry[] Glucose [Mass/volume] in Ser um or Plasma [2345-7] 295 mg/dL N Blood chemistry[] Glucose [Mass/volume] in Ser um or Plasma [2345-7] 194 mg/dL N Blood chemistry[[id number]] Glucose [Mass/volume] in Ser um or Plasma [2345-7] 305 mg/dL N Blood chemistry[] Glucose [Mass/volume] in Ser um or Plasma [2345-7] 209 mg/dL N Blood chemistry[] Glucose [Mass/volume] in Ser um or Plasma [2345-7] 292 mg/dL N Blood chemistry[] Glucose [Mass/volume] in Ser um or Plasma [2345-7] 207 mg/dL N Blood chemistry[] Glucose [Mass/volume] in Ser um or Plasma [2345-7] 285 mg/dL N Blood chemistry[] Glucose [Mass/volume] in Ser um or Plasma [2345-7] 192 mg/dL N Blood chemistry[] Glucose [Mass/volume] in Ser um or Plasma [2345-7] 300 mg/dL N Blood chemistry[] Glucose [Mass/volume] in Ser um or Plasma [2345-7] 196 mg/dL N Blood chemistry[] Glucose [Mass/volume] in Ser um or Plasma [2345-7] 330 mg/dL N Blood chemistry[[id number]] Glucose [Mass/volume] in Ser um or Plasma [2345-7] 196 mg/dL N Blood chemistry[] Glucose [Mass/volume] in Ser um or Plasma [2345-7] 337 mg/dL N Blood chemistry[[id number]] Glucose [Mass/volume] in Ser um or Plasma [2345-7] 188 mg/dL N Blood chemistry[[id number]] Glucose [Mass/volume] in Ser um or Plasma [2345-7] 230 mg/dL N Blood chemistry[[id number]] Glucose [Mass/volume] in Ser um or Plasma [2345-7] 169 mg/dL N Blood chemistry[] Glucose [Mass/volume] in Ser um or Plasma [2345-7] 284 mg/dL N Blood chemistry[[id number]] Glucose [Mass/volume] in Ser um or Plasma [2345-7] 169 mg/dL N Blood chemistry[[id number]] Glucose [Mass/volume] in Ser um or Plasma [2345-7] 260 mg/dL N Blood chemistry[] Glucose [Mass/volume] in Ser um or Plasma [2345-7] 170 mg/dL N Blood chemistry[] Glucose [Mass/volume] in Ser um or Plasma [2345-7] 202 mg/dL N Blood chemistry[] Glucose [Mass/volume] in Ser um or Plasma [2345-7] 218 mg/dL N Blood chemistry[] Glucose [Mass/volume] in Ser um or Plasma [2345-7] 217 mg/dL N Blood chemistry[] Glucose [Mass/volume] in Ser um or Plasma [2345-7] 172 mg/dL N Blood chemistry[] Glucose [Mass/volume] in Ser um or Plasma [2345-7] 202 mg/dL N Blood chemistry[] Glucose [Mass/volume] in Ser um or Plasma [2345-7] 159 mg/dL N Blood chemistry[] Glucose [Mass/volume] in Ser um or Plasma [2345-7] 182 mg/dL N Blood chemistry[] Glucose [Mass/volume] in Ser um or Plasma [2345-7] 130 mg/dL N Blood chemistry[] Glucose [Mass/volume] in Ser um or Plasma [2345-7] 162 mg/dL N Blood chemistry[] Glucose [Mass/volume] in Ser um or Plasma [2345-7] 156 mg/dL N Blood chemistry[] Glucose [Mass/volume] in Ser um or Plasma [2345-7] 195 mg/dL N Blood chemistry[] Glucose [Mass/volume] in Ser um or Plasma [2345-7] 145 mg/dL N Blood chemistry[] Glucose [Mass/volume] in Ser um or Plasma [2345-7] 200 mg/dL N Blood chemistry[] Glucose [Mass/volume] in Ser um or Plasma [2345-7] 120 mg/dL N Blood chemistry[] Glucose [Mass/volume] in Ser um or Plasma [2345-7] 274 mg/dL N Blood chemistry[[id number]] Glucose [Mass/volume] in Ser um or Plasma [2345-7] 187 mg/dL N Blood chemistry[[id number]] Glucose [Mass/volume] in Ser um or Plasma [2345-7] 213 mg/dL N Blood chemistry[] Glucose [Mass/volume] in Ser um or Plasma [2345-7] 141 mg/dL N Blood chemistry[] Glucose [Mass/volume] in Ser um or Plasma [2345-7] 200 mg/dL N Blood chemistry[] Glucose [Mass/volume] in Ser um or Plasma [2345-7] 136 mg/dL N Blood chemistry[] Glucose [Mass/volume] in Ser um or Plasma [2345-7] 189 mg/dL N Tuberculosis reaction wheal[ 18638-6] Tuberculosis reaction wheal [74932-8] See note NEG TB test Blood chemistry[] Glucose [Mass/volume] in Ser um or Plasma [2345-7] 136 mg/dL N Blood chemistry[[id number]] Glucose [Mass/volume] in Ser um or Plasma [2345-7] 176 mg/dL N Blood chemistry[[id number]] Glucose [Mass/volume] in Ser um or Plasma [2345-7] 135 mg/dL N Blood chemistry[[id number]] Glucose [Mass/volume] in Ser um or Plasma [2345-7] 156 mg/dL N Blood chemistry[[id number]] Glucose [Mass/volume] in Ser um or Plasma [2345-7] 156 mg/dL N Blood chemistry[[id number]] Glucose [Mass/volume] in Ser um or Plasma [2345-7] 128 mg/dL N Blood chemistry[[id number]] Glucose [Mass/volume] in Ser um or Plasma [2345-7] 176 mg/dL N Blood chemistry[[id number]] Glucose [Mass/volume] in Ser um or Plasma [2345-7] 176 mg/dL N Blood chemistry[[id number]] Glucose [Mass/volume] in Ser um or Plasma [2345-7] 143 mg/dL N Blood chemistry[[id number]] Glucose [Mass/volume] in Ser um or Plasma [2345-7] 178 mg/dL N Blood chemistry[[id number]] Glucose [Mass/volume] in Ser um or Plasma [2345-7] 148 mg/dL N Blood chemistry[[id number]] Glucose [Mass/volume] in Ser um or Plasma [2345-7] 162 mg/dL N Blood chemistry[[id number]] Glucose [Mass/volume] in Ser um or Plasma [2345-7] 169 mg/dL N Blood chemistry[[id number]] Glucose [Mass/volume] in Ser um or Plasma [2345-7] 159 mg/dL N Allergies, adverse reactions, alerts Substance Reaction Date Status Type oxcarbazepine Rash 03/11/2024 Non Drug lacosamide 03/11/2024 Non Drug Bee Venom 03/11/2024 Non Drug Seasonal 03/28/2024 Non Drug Immunizations Vaccine Route Date Status COVID-19 Vaccine Unassigned Route of Administration Completed COVID-19 Vaccine Unassigned Route of Administration Completed COVID-19 Vaccine Unassigned Route of Administration Completed COVID-19 Vaccine Unassigned Route of Administration Completed COVID-19 Vaccine Unassigned Route of Administration Completed COVID-19 Vaccine Unassigned Route of Administration Completed COVID-19 Vaccine Unassigned Route of Administration Completed COVID-19 Vaccine Unassigned Route of Administration Completed Pneumococcal Vaccine Unassigned Route of Administratio n 10/23/2017 Completed Pneumococcal Vaccine Unassigned Route of Administratio n 04/07/2015 Completed Pneumococcal Vaccine Unassigned Route of Administratio n 12/01/2013 Completed RSV Vaccine Unassigned Route of Administration 2022 Completed Tetanus Vaccine Unassigned Route of Administration 12/2018 Completed Zoster Vaccine Unassigned Route of Administration 07/26 Completed Medications Medication Instructions Route Dosage Frequency Start Date Stop Date Indications Status acetaminophen 500 mg tablet (acetaminophe n) 1,000 mg, oral, Every 6 Hours - PRN, N.O. Non-Pharmacolog ical Interventions:1 =Warm blanket 2=Re-position 3=Ice pack 4=Warm pack. oral 1.0 6.0 h 03/28 Pain, unspecified Active aspirin 81 mg tablet,delaye d release (/EC) (aspirin) 81 mg, oral, Once A Day, Monitor for bruising/bleedi ng. Notify MD/THEATRICAL PERFORMER of concerns. oral 1.0 1.0 d 03/28 Active atorvastatin 20 mg tablet (atorvastatin ) 20 mg, oral, Once A Day oral 1.0 1.0 d 03/28 Hyperlipidemia , unspecified Active benzonatate 100 mg capsule (benzonatate) 200 mg, oral, Three Times A Day oral 1.0 8.0 h 03/28 Pneumonia, unspecified organism Active cholecalcifer ol (vitamin D3) 25 mcg (1,000 unit) capsule (cholecalcife rol (vitamin D3)) 25 mcg, oral, Once A Day oral 1.0 1.0 d 03/28 Active Daily Multivitamin- Minerals (multivitamin with minerals) - tablet (Daily Multivitamin- Minerals (multivitamin with minerals)) 1 tablet, oral, Once A Day oral 1.0 1.0 d 03/28 Active digoxin 250 mcg (0.25 mg) tablet (digoxin) 250 mcg, oral, Once A Day oral 1.0 1.0 d 03/23 Unspecified atrial fibrillation Active divalproex 250 mg tablet extended release 24 hr (divalproex) 750 mg, oral, Twice A Day oral 1.0 12.0 h 03/28 Active Eliquis (apixaban) 5 mg tablet (Eliquis (apixaban)) 5 mg, oral, Twice A Day, Monitor for bruising/bleedi ng. Notify MD/THEATRICAL PERFORMER of concerns. oral 1.0 12.0 h 03/28 Unspecified atrial fibrillation Active Fish Oil (omega 3-lic-ooe-fis h oil) 100-160-1,000 mg capsule (Fish Oil (omega 1-tct-otr-fis h oil)) 100-160-1,000 mg, oral, Once A Day oral 1.0 1.0 d 03/28 Active Lactobacillus acidophilus 0.5 mg (100 million cell) tablet (Lactobacillu s acidophilus) 1 tablet, oral, Three Times A Day, with meals oral 1.0 8.0 h 03/28 Pneumonia, unspecified organism Active Lantus Solostar U-100 Insulin (insulin glargine) 100 unit/mL (3 mL) insulin pen (Lantus Solostar U-100 Insulin (insulin glargine)) 10 units, subcutaneous, Once A Day subcutan eous 1.0 1.0 d 03/28 Type 2 diabetes mellitus without complications Active lisinopril 10 mg tablet (lisinopril) 10mg, oral, Once A Day oral 1.0 1.0 d 03/28 Essential (primary) hypertension Active metoprolol succinate 25 mg tablet extended release 24 hr (metoprolol succinate) 25 mg, oral, Twice A Day oral 1.0 12.0 h 03/28 Unspecified atrial fibrillation Active potassium chloride 20 mEq tablet extended release (potassium chloride) 20 mEq, oral, Twice A Day oral 1.0 12.0 h 03/28 Hypokalemia Active pregabalin 100 mg capsule (pregabalin) 100 mg, oral, Once A Day oral 1.0 1.0 d 03/28 Active pregabalin 50 mg capsule (pregabalin) 50 mg, oral, Twice A Day oral 1.0 12.0 h 03/28 Active primidone 250 mg tablet (primidone) 250 mg, oral, Once A Day oral 1.0 1.0 d 03/28 Active sodium chloride 1,000 mg tablet,solubl e (sodium chloride) 1,000 mg, miscellaneous, Three Times A Day, with meals 1.0 8.0 h 03/28 Hypo-osmolalit y and hyponatremia Active torsemide 20 mg tablet (torsemide) 60 mg, oral, Once A Day oral 1.0 1.0 d 03/28 Heart failure, unspecified Active diltiazem HCl 180 mg capsule,exten ded release 24hr (diltiazem HCl) 180 mg, oral, Once A Day oral 1.0 1.0 d 03/28 Active diltiazem HCl 240 mg capsule,exten ded release 24hr (diltiazem HCl) 240 mg, oral, Once A Day oral 1.0 1.0 d 03/28 Active digoxin 250 mcg (0.25 mg) tablet (digoxin) 250 mcg, oral, Once A Day, Take Apical Pulse prior to med administration and HOLD if pulse is 55 or less. oral 1.0 1.0 d 03/23 Unspecified atrial fibrillation Active acetaminophen 500 mg tablet (acetaminophe n) 1,000 mg, oral, Every 6 Hours - PRN, N.O. Non-Pharmacolog ical Interventions:1 =Warm blanket 2=Re-position 3=Ice pack 4=Warm pack. oral 1.0 6.0 h 05/26 Pain, unspecified Active aspirin 81 mg tablet,delaye d release (/EC) (aspirin) 81 mg, oral, Once A Day, Monitor for bruising/bleedi ng. Notify MD/THEATRICAL PERFORMER of concerns. oral 1.0 1.0 d 05/26 Type 2 diabetes mellitus without complications Active atorvastatin 20 mg tablet (atorvastatin ) 20 mg, oral, Once A Day oral 1.0 1.0 d 05/26 Hyperlipidemia , unspecified Active benzonatate 100 mg capsule (benzonatate) 200 mg, oral, Three Times A Day oral 1.0 8.0 h 03/28 Pneumonia, unspecified organism Active cholecalcifer ol (vitamin D3) 25 mcg (1,000 unit) capsule (cholecalcife rol (vitamin D3)) 25 mcg, oral, Once A Day oral 1.0 1.0 d 05/26 Active digoxin 250 mcg (0.25 mg) tablet (digoxin) 125 mcg, oral, Once A Day, Take Apical Pulse prior to med administration and HOLD if pulse is 55 or less. oral 1.0 1.0 d 05/26 Unspecified atrial fibrillation Active diltiazem HCl 120 mg capsule,exten ded release 24hr (diltiazem HCl) 120 mg, oral, Once A Day oral 1.0 1.0 d 04/07 Unspecified atrial fibrillation Active divalproex 250 mg tablet extended release 24 hr (divalproex) 750 mg, oral, Twice A Day oral 1.0 12.0 h 05/26 Active torsemide 20 mg tablet (torsemide) 20 mg, oral, Once A Day oral 1.0 1.0 d 05/26 Heart failure, unspecified Active digoxin 250 mcg (0.25 mg) tablet (digoxin) 250 mcg, oral, Once A Day, Take Apical Pulse prior to med administration and HOLD if pulse is 55 or less. oral 1.0 1.0 d 03/28 Unspecified atrial fibrillation Active Daily Multivitamin- Minerals (multivitamin with minerals) - tablet (Daily Multivitamin- Minerals (multivitamin with minerals)) 1 tablet, oral, Once A Day oral 1.0 1.0 d 05/26 Active Eliquis (apixaban) 5 mg tablet (Eliquis (apixaban)) 5 mg, oral, Twice A Day, Monitor for bruising/bleedi ng. Notify MD/THEATRICAL PERFORMER of concerns. oral 1.0 12.0 h 05/26 Unspecified atrial fibrillation Active Fish Oil (omega 2-yzd-pvd-fis h oil) 100-160-1,000 mg capsule (Fish Oil (omega 9-nxc-gfe-fis h oil)) 100-160-1,000 mg, oral, Once A Day oral 1.0 1.0 d 04/16 Active Lactobacillus acidophilus 0.5 mg (100 million cell) tablet (Lactobacillu s acidophilus) 1 tablet, oral, Three Times A Day, with meals oral 1.0 8.0 h 05/26 Pneumonia, unspecified organism Active Lantus Solostar U-100 Insulin (insulin glargine) 100 unit/mL (3 mL) insulin pen (Lantus Solostar U-100 Insulin (insulin glargine)) 10 units, subcutaneous, Once A Day subcutan eous 1.0 1.0 d 04/14 Type 2 diabetes mellitus without complications Active metoprolol tartrate 25 mg tablet (metoprolol tartrate) 25 mg, oral, Twice A Day oral 1.0 12.0 h 05/26 Active potassium chloride 20 mEq tablet extended release (potassium chloride) 20 mEq, oral, Twice A Day oral 1.0 12.0 h 05/26 Hypokalemia Active pregabalin 100 mg capsule (pregabalin) 100 mg, oral, Once A Day oral 1.0 1.0 d 05/26 Polyneuropathy , unspecified Active pregabalin 50 mg capsule (pregabalin) 50 mg, oral, Twice A Day oral 1.0 12.0 h 03/28 Active primidone 250 mg tablet (primidone) 250 mg, oral, Once A Day oral 1.0 1.0 d 05/26 Epilepsy, unspecified, not intractable, without status epilepticus Active sodium chloride 1,000 mg tablet,solubl e (sodium chloride) 1,000 mg, miscellaneous, Three Times A Day, with meals 1.0 8.0 h 05/26 Hypo-osmolalit y and hyponatremia Active metoprolol succinate 25 mg tablet extended release 24 hr (metoprolol succinate) 25 mg, oral, Twice A Day oral 1.0 12.0 h 03/28 Unspecified atrial fibrillation Active pregabalin 50 mg capsule (pregabalin) 50 mg, oral, Twice A Day, Take 50 mg with lunch and 50 mg in the evening oral 1.0 12.0 h 03/30 Active pregabalin 50 mg capsule (pregabalin) 50 mg, oral, Twice A Day, Take 50 mg with lunch and 50 mg in the evening oral 1.0 12.0 h 05/26 Polyneuropathy , unspecified Active Tamiflu (oseltamivir) 75 mg capsule (Tamiflu (oseltamivir) ) 75 mg, oral, Once A Day, 75 mg once daily X 2 weeks oral 1.0 1.0 d 04/13 Active Tamiflu (oseltamivir) 75 mg capsule (Tamiflu (oseltamivir) ) 75 mg, oral, Once A Day, 75 mg once daily X 2 weeks oral 1.0 1.0 d 03/31 Active Tamiflu (oseltamivir) 75 mg capsule (Tamiflu (oseltamivir) ) 75 mg, oral, Once A Day, 75 mg once daily X 2 weeks oral 1.0 1.0 d 03/31 Active diltiazem HCl 120 mg capsule,exten ded release 24hr (diltiazem HCl) 240 mg, oral, Once A Day oral 1.0 1.0 d 05/26 Unspecified atrial fibrillation Active Jardiance (empagliflozi n) 10 mg tablet (Jardiance (empagliflozi n)) 10 mg, oral, Once A Day oral 1.0 1.0 d 05/26 Type 2 diabetes mellitus without complications Active benzonatate 100 mg capsule (benzonatate) 100 mg, oral, Three Times A Day - PRN oral 1.0 8.0 h 04/30 Pneumonia, unspecified organism Active Lantus Solostar U-100 Insulin (insulin glargine) 100 unit/mL (3 mL) insulin pen (Lantus Solostar U-100 Insulin (insulin glargine)) 12 units, subcutaneous, Once A Day subcutan eous 1.0 1.0 d 04/30 Type 2 diabetes mellitus without complications Active benzonatate 100 mg capsule (benzonatate) 100 mg, oral, Three Times A Day oral 1.0 8.0 h 04/14 Pneumonia, unspecified organism Active Fish Oil (omega 3-zqf-ufc-fis h oil) 100-160-1,000 mg capsule (Fish Oil (omega 5-eez-iyz-fis h oil)) 100-160-1,000 mg, oral, Once A Day oral 1.0 1.0 d 05/26 Active Lantus Solostar U-100 Insulin (insulin glargine) 100 unit/mL (3 mL) insulin pen (Lantus Solostar U-100 Insulin (insulin glargine)) 13 units, subcutaneous, Once A Day subcutan eous 1.0 1.0 d 05/26 Type 2 diabetes mellitus without complications Active Voltaren Arthritis Pain (diclofenac sodium) 1 % gel (Voltaren Arthritis Pain (diclofenac sodium)) 1 application, topical, Twice A Day, apply thin layer topically to painful area near left breast region topical 1.0 12.0 h 05/21 Pain, unspecified Active Voltaren Arthritis Pain (diclofenac sodium) 1 % gel (Voltaren Arthritis Pain (diclofenac sodium)) 1 application, topical, Twice A Day, apply thin layer topically to painful area near left breast region topical 1.0 12.0 h 05/21 Pain, unspecified Active Voltaren Arthritis Pain (diclofenac sodium) 1 % gel (Voltaren Arthritis Pain (diclofenac sodium)) 2 gm, topical, Twice A Day, apply thin layer topically to painful area near left breast region topical 1.0 12.0 h 05/26 Pain, unspecified Active Voltaren Arthritis Pain (diclofenac sodium) 1 % gel (Voltaren Arthritis Pain (diclofenac sodium)) 1 application, topical, Twice A Day, apply thin layer topically to painful area near left breast region topical 1.0 12.0 h 05/22 Pain, unspecified Active Tamiflu (oseltamivir) 75 mg capsule (Tamiflu (oseltamivir) ) 75 mg, oral, Once A Day, 75 mg once daily X 2 weeks oral 1.0 1.0 d 02/04/ 2025 04/01 /2025 Active Voltaren Arthritis Pain (diclofenac sodium) 1 % gel (Voltaren Arthritis Pain (diclofenac sodium)) 2 g, topical, Twice A Day, apply to L knee topical 1.0 12.0 h 05/26 Pain, unspecified Active Vital Signs Date Vital Result Comment 03/12/2024 02:51 PM Temperature 99.3 [degF] Oxygen Saturation 94 % Respiratory Rate 19 /min Heart Rate 108 /min Blood Pressure Systolic 127 mm[Hg] Blood Pressure Diastolic 70 mm[Hg] 03/12/2024 05:36 PM Temperature 98.8 [degF] Oxygen Saturation 92 % Respiratory Rate 18 /min Heart Rate 104 /min Blood Pressure Systolic 117 mm[Hg] Blood Pressure Diastolic 70 mm[Hg] 03/12/2024 09:51 PM Temperature 98.4 [degF] Oxygen Saturation 92 % Respiratory Rate 18 /min Heart Rate 105 /min Blood Pressure Systolic 123 mm[Hg] Blood Pressure Diastolic 76 mm[Hg] 03/13/2024 02:40 AM Temperature 98.2 [degF] Oxygen Saturation 90 % Respiratory Rate 18 /min Heart Rate 99 /min Blood Pressure Systolic 112 mm[Hg] Blood Pressure Diastolic 87 mm[Hg] 03/13/2024 05:14 AM Oxygen Saturation 94 % 03/13/2024 06:14 AM Blood Pressure Systolic 146 mm[Hg] Blood Pressure Diastolic 83 mm[Hg] 03/13/2024 05:13 AM Temperature 98.2 [degF] Oxygen Saturation 94 % Respiratory Rate 20 /min Heart Rate 106 /min 03/13/2024 10:03 AM Body Height 64 [in_us] 03/13/2024 11:58 AM Temperature 99.1 [degF] Oxygen Saturation 90 % Respiratory Rate 24 /min Heart Rate 103 /min Blood Pressure Systolic 136 mm[Hg] Blood Pressure Diastolic 79 mm[Hg] 03/13/2024 01:53 PM Temperature 98.9 [degF] Oxygen Saturation 93 % Respiratory Rate 19 /min Heart Rate 84 /min Blood Pressure Systolic 135 mm[Hg] Blood Pressure Diastolic 80 mm[Hg] 03/13/2024 04:58 PM Temperature 97 [degF] Respiratory Rate 18 /min Heart Rate 98 /min Blood Pressure Systolic 132 mm[Hg] Blood Pressure Diastolic 90 mm[Hg] 03/13/2024 04:57 PM Oxygen Saturation 95 % 03/13/2024 08:24 PM Temperature 97.3 [degF] Oxygen Saturation 96 % Heart Rate 80 /min Blood Pressure Systolic 134 mm[Hg] Blood Pressure Diastolic 83 mm[Hg] 03/14/2024 07:21 AM Oxygen Saturation 95 % 03/14/2024 03:40 PM Temperature 97.4 [degF] Respiratory Rate 17 /min Heart Rate 78 /min Blood Pressure Systolic 128 mm[Hg] Blood Pressure Diastolic 67 mm[Hg] 03/14/2024 07:14 PM Oxygen Saturation 94 % 03/15/2024 06:21 AM Oxygen Saturation 93 % 03/15/2024 10:12 AM Oxygen Saturation 94 % 03/15/2024 02:51 PM Temperature 97 [degF] Respiratory Rate 17 /min Heart Rate 98 /min Blood Pressure Systolic 117 mm[Hg] Blood Pressure Diastolic 82 mm[Hg] 03/15/2024 10:40 PM Oxygen Saturation 92 % 03/16/2024 04:59 AM Oxygen Saturation 94 % 03/16/2024 10:31 AM Temperature 96.9 [degF] Oxygen Saturation 95 % Respiratory Rate 17 /min Heart Rate 103 /min Blood Pressure Systolic 122 mm[Hg] Blood Pressure Diastolic 62 mm[Hg] 03/16/2024 08:43 PM Oxygen Saturation 95 % 03/17/2024 01:03 AM Oxygen Saturation 93 % 03/17/2024 10:01 AM Temperature 96.8 [degF] Oxygen Saturation 95 % Respiratory Rate 18 /min Heart Rate 86 /min Blood Pressure Systolic 109 mm[Hg] Blood Pressure Diastolic 74 mm[Hg] 03/17/2024 05:35 PM Oxygen Saturation 95 % 03/18/2024 06:04 AM Oxygen Saturation 93 % 03/18/2024 10:08 AM Temperature 97.1 [degF] Respiratory Rate 18 /min Heart Rate 98 /min Blood Pressure Systolic 106 mm[Hg] Blood Pressure Diastolic 71 mm[Hg] 03/18/2024 10:07 AM Oxygen Saturation 95 % 03/18/2024 05:18 PM Oxygen Saturation 94 % 03/18/2024 08:10 PM Oxygen Saturation 94 % 03/19/2024 07:13 AM Oxygen Saturation 91 % 03/19/2024 09:07 AM Temperature 97.1 [degF] Respiratory Rate 18 /min Heart Rate 90 /min Blood Pressure Systolic 120 mm[Hg] Blood Pressure Diastolic 73 mm[Hg] 03/19/2024 09:06 AM Oxygen Saturation 96 % 03/19/2024 05:04 PM Oxygen Saturation 94 % 03/20/2024 12:00 AM Oxygen Saturation 95 % 03/20/2024 08:40 AM Temperature 97.2 [degF] Respiratory Rate 18 /min Heart Rate 99 /min Blood Pressure Systolic 110 mm[Hg] Blood Pressure Diastolic 85 mm[Hg] 03/20/2024 08:39 AM Oxygen Saturation 96 % 03/20/2024 05:03 PM Oxygen Saturation 96 % 03/21/2024 05:32 AM Oxygen Saturation 95 % 03/21/2024 08:18 AM Body Weight 279.5 [lb_av] Body Mass Index 47.97 kg/m2 03/21/2024 10:09 AM Temperature 97.2 [degF] Respiratory Rate 18 /min Heart Rate 79 /min Blood Pressure Systolic 115 mm[Hg] Blood Pressure Diastolic 66 mm[Hg] 03/21/2024 09:16 AM Oxygen Saturation 96 % 03/21/2024 01:19 PM Oxygen Saturation 95 % 03/21/2024 05:15 PM Oxygen Saturation 96 % 03/21/2024 08:27 PM Oxygen Saturation 95 % 03/22/2024 04:08 AM Oxygen Saturation 97 % 03/22/2024 09:52 AM Temperature 97 [degF] Oxygen Saturation 94 % Respiratory Rate 18 /min Heart Rate 91 /min Blood Pressure Systolic 124 mm[Hg] Blood Pressure Diastolic 67 mm[Hg] 03/22/2024 04:24 PM Oxygen Saturation 95 % 03/23/2024 05:20 AM Oxygen Saturation 94 % 03/23/2024 10:18 AM Temperature 97.2 [degF] Respiratory Rate 18 /min Heart Rate 85 /min Blood Pressure Systolic 119 mm[Hg] Blood Pressure Diastolic 72 mm[Hg] 03/23/2024 10:17 AM Oxygen Saturation 95 % 03/23/2024 04:30 PM Oxygen Saturation 95 % 03/24/2024 04:25 AM Oxygen Saturation 96 % 03/24/2024 08:06 AM Heart Rate 87 /min 03/24/2024 10:53 AM Temperature 97.7 [degF] Respiratory Rate 18 /min Blood Pressure Systolic 112 mm[Hg] Blood Pressure Diastolic 64 mm[Hg] 03/24/2024 09:25 AM Oxygen Saturation 95 % 03/24/2024 01:08 PM Oxygen Saturation 95 % 03/24/2024 04:39 PM Oxygen Saturation 95 % 03/24/2024 08:04 PM Oxygen Saturation 95 % 03/25/2024 04:48 AM Oxygen Saturation 91 % 03/25/2024 01:20 AM Oxygen Saturation 94 % 03/25/2024 10:18 AM Temperature 97 [degF] Oxygen Saturation 95 % Respiratory Rate 18 /min Heart Rate 97 /min Blood Pressure Systolic 115 mm[Hg] Blood Pressure Diastolic 61 mm[Hg] 03/25/2024 09:08 AM Heart Rate 97 /min 03/25/2024 09:07 AM Oxygen Saturation 95 % 03/25/2024 01:28 PM Body Weight 277.9 [lb_av] Body Mass Index 47.7 kg/m2 03/28/2024 01:00 PM Oxygen Saturation 95 % 03/28/2024 01:01 PM Temperature 98.9 [degF] Respiratory Rate 19 /min Heart Rate 96 /min Blood Pressure Systolic 106 mm[Hg] Blood Pressure Diastolic 69 mm[Hg] 03/28/2024 04:43 PM Oxygen Saturation 95 % 03/28/2024 04:44 PM Temperature 97.9 [degF] Respiratory Rate 18 /min Heart Rate 89 /min Blood Pressure Systolic 117 mm[Hg] Blood Pressure Diastolic 73 mm[Hg] 03/28/2024 08:57 PM Oxygen Saturation 94 % 03/28/2024 08:58 PM Temperature 97 [degF] Heart Rate 99 /min Blood Pressure Systolic 108 mm[Hg] Blood Pressure Diastolic 62 mm[Hg] 03/29/2024 05:38 AM Temperature 98.2 [degF] Heart Rate 100 /min Blood Pressure Systolic 120 mm[Hg] Blood Pressure Diastolic 64 mm[Hg] 03/29/2024 05:36 AM Temperature 97.6 [degF] Oxygen Saturation 93 % Respiratory Rate 18 /min Heart Rate 98 /min Blood Pressure Systolic 111 mm[Hg] Blood Pressure Diastolic 63 mm[Hg] 03/29/2024 08:30 AM Temperature 96.9 [degF] Oxygen Saturation 95 % Respiratory Rate 18 /min Heart Rate 77 /min Blood Pressure Systolic 139 mm[Hg] Blood Pressure Diastolic 85 mm[Hg] 03/29/2024 02:09 PM Body Weight 275.5 [lb_av] Body Mass Index 47.28 kg/m2 03/29/2024 02:31 PM Oxygen Saturation 93 % 03/29/2024 02:30 PM Body Weight 275.5 [lb_av] Body Mass Index 47.28 kg/m2 03/29/2024 02:10 PM Temperature 97 [degF] Oxygen Saturation 93 % Respiratory Rate 18 /min Heart Rate 77 /min Blood Pressure Systolic 132 mm[Hg] Blood Pressure Diastolic 77 mm[Hg] 03/29/2024 05:18 PM Temperature 97.3 [degF] Oxygen Saturation 95 % Respiratory Rate 20 /min Heart Rate 93 /min Blood Pressure Systolic 119 mm[Hg] Blood Pressure Diastolic 77 mm[Hg] 03/29/2024 08:30 PM Temperature 97.7 [degF] Oxygen Saturation 95 % Respiratory Rate 20 /min Heart Rate 83 /min Blood Pressure Systolic 126 mm[Hg] Blood Pressure Diastolic 73 mm[Hg] 03/30/2024 04:45 AM Oxygen Saturation 94 % 03/30/2024 09:26 AM Temperature 97.1 [degF] Oxygen Saturation 94 % Respiratory Rate 19 /min Heart Rate 98 /min Blood Pressure Systolic 112 mm[Hg] Blood Pressure Diastolic 69 mm[Hg] 03/30/2024 09:17 AM Body Weight 276 [lb_av] Body Mass Index 47.37 kg/m2 03/30/2024 05:27 PM Oxygen Saturation 93 % 03/31/2024 12:43 AM Oxygen Saturation 95 % 03/31/2024 09:18 AM Heart Rate 99 /min 03/31/2024 09:56 AM Temperature 97.6 [degF] Oxygen Saturation 99 % Respiratory Rate 16 /min Heart Rate 99 /min Blood Pressure Systolic 134 mm[Hg] Blood Pressure Diastolic 77 mm[Hg] 03/31/2024 02:04 PM Body Weight 276 [lb_av] Body Mass Index 47.37 kg/m2 03/31/2024 07:43 PM Oxygen Saturation 96 % 04/01/2024 05:13 AM Oxygen Saturation 93 % 04/01/2024 08:21 AM Temperature 97.4 [degF] Oxygen Saturation 96 % Respiratory Rate 17 /min Heart Rate 98 /min Blood Pressure Systolic 115 mm[Hg] Blood Pressure Diastolic 75 mm[Hg] 04/01/2024 09:12 AM Body Weight 276.6 [lb_av] Body Mass Index 47.47 kg/m2 04/01/2024 04:34 PM Oxygen Saturation 96 % 04/02/2024 04:47 AM Oxygen Saturation 91 % 04/02/2024 10:46 AM Heart Rate 99 /min 04/02/2024 11:18 AM Temperature 97.2 [degF] Oxygen Saturation 97 % Respiratory Rate 17 /min Blood Pressure Systolic 139 mm[Hg] Blood Pressure Diastolic 94 mm[Hg] 04/02/2024 01:48 PM Body Weight 276.2 [lb_av] Body Mass Index 47.4 kg/m2 04/02/2024 09:10 PM Oxygen Saturation 95 % 04/03/2024 06:26 AM Oxygen Saturation 94 % 04/03/2024 09:01 AM Temperature 97.4 [degF] Oxygen Saturation 95 % Respiratory Rate 17 /min Heart Rate 99 /min Blood Pressure Systolic 118 mm[Hg] Blood Pressure Diastolic 77 mm[Hg] 04/03/2024 03:17 PM Body Weight 281.5 [lb_av] Body Mass Index 48.31 kg/m2 04/03/2024 04:21 PM Oxygen Saturation 96 % 04/04/2024 05:23 AM Oxygen Saturation 92 % 04/04/2024 09:22 AM Heart Rate 104 /min 04/04/2024 09:44 AM Temperature 98.9 [degF] Oxygen Saturation 92 % Respiratory Rate 18 /min Heart Rate 105 /min Blood Pressure Systolic 136 mm[Hg] Blood Pressure Diastolic 78 mm[Hg] 04/04/2024 12:21 PM Body Weight 279 [lb_av] Body Mass Index 47.89 kg/m2 04/04/2024 05:26 PM Oxygen Saturation 94 % 04/05/2024 02:57 AM Oxygen Saturation 93 % 04/05/2024 08:01 AM Body Weight 294.6 [lb_av] Body Mass Index 50.56 kg/m2 04/05/2024 09:19 AM Heart Rate 103 /min 04/05/2024 10:39 AM Temperature 97.3 [degF] Oxygen Saturation 92 % Respiratory Rate 18 /min Blood Pressure Systolic 117 mm[Hg] Blood Pressure Diastolic 74 mm[Hg] 04/05/2024 08:19 PM Oxygen Saturation 92 % 04/06/2024 05:16 AM Oxygen Saturation 93 % 04/06/2024 09:46 AM Oxygen Saturation 94 % 04/06/2024 09:18 AM Temperature 97.4 [degF] Oxygen Saturation 93 % Respiratory Rate 17 /min Blood Pressure Systolic 125 mm[Hg] Blood Pressure Diastolic 66 mm[Hg] 04/06/2024 09:17 AM Heart Rate 94 /min 04/06/2024 12:11 PM Body Weight 175 [lb_av] Body Mass Index 30.04 kg/m2 04/06/2024 04:14 PM Oxygen Saturation 95 % 04/07/2024 04:27 AM Oxygen Saturation 92 % 04/07/2024 09:20 AM Heart Rate 104 /min 04/07/2024 12:42 PM Temperature 97.1 [degF] Oxygen Saturation 95 % Respiratory Rate 17 /min Heart Rate 98 /min Blood Pressure Systolic 122 mm[Hg] Blood Pressure Diastolic 77 mm[Hg] 04/07/2024 04:17 PM Oxygen Saturation 93 % 04/08/2024 12:06 AM Oxygen Saturation 93 % 04/08/2024 09:21 AM Temperature 96.9 [degF] Oxygen Saturation 93 % Respiratory Rate 16 /min Heart Rate 95 /min Blood Pressure Systolic 114 mm[Hg] Blood Pressure Diastolic 69 mm[Hg] 04/08/2024 01:23 PM Body Weight 276 [lb_av] Body Mass Index 47.37 kg/m2 04/08/2024 04:55 PM Oxygen Saturation 94 % 04/09/2024 12:57 AM Oxygen Saturation 93 % 04/09/2024 11:06 AM Temperature 97.5 [degF] Respiratory Rate 17 /min Heart Rate 91 /min Blood Pressure Systolic 116 mm[Hg] Blood Pressure Diastolic 79 mm[Hg] 04/09/2024 11:05 AM Oxygen Saturation 95 % 04/09/2024 08:28 AM Heart Rate 91 /min 04/09/2024 01:34 PM Body Weight 275.4 [lb_av] Body Mass Index 47.27 kg/m2 04/09/2024 04:13 PM Oxygen Saturation 97 % 04/10/2024 05:49 AM Oxygen Saturation 95 % 04/10/2024 09:27 AM Temperature 97.5 [degF] Oxygen Saturation 96 % Respiratory Rate 18 /min Heart Rate 94 /min Blood Pressure Systolic 120 mm[Hg] Blood Pressure Diastolic 74 mm[Hg] 04/10/2024 11:33 AM Body Weight 275.8 [lb_av] Body Mass Index 47.34 kg/m2 04/10/2024 04:51 PM Oxygen Saturation 95 % 04/11/2024 06:32 AM Oxygen Saturation 94 % 04/11/2024 08:12 AM Temperature 97.2 [degF] Respiratory Rate 18 /min Heart Rate 96 /min Blood Pressure Systolic 121 mm[Hg] Blood Pressure Diastolic 71 mm[Hg] 04/11/2024 08:11 AM Oxygen Saturation 94 % 04/11/2024 01:40 PM Body Weight 272 [lb_av] Body Mass Index 46.68 kg/m2 04/11/2024 04:39 PM Oxygen Saturation 95 % 04/12/2024 05:56 AM Oxygen Saturation 94 % 04/12/2024 07:29 AM Temperature 97 [degF] Oxygen Saturation 94 % Respiratory Rate 17 /min Heart Rate 99 /min Blood Pressure Systolic 142 mm[Hg] Blood Pressure Diastolic 85 mm[Hg] 04/12/2024 05:14 PM Oxygen Saturation 94 % 04/13/2024 06:26 AM Oxygen Saturation 93 % 04/13/2024 09:18 AM Heart Rate 77 /min 04/13/2024 01:26 PM Temperature 97.3 [degF] Respiratory Rate 17 /min Heart Rate 79 /min Blood Pressure Systolic 156 mm[Hg] Blood Pressure Diastolic 82 mm[Hg] 04/13/2024 04:19 PM Oxygen Saturation 95 % 04/14/2024 12:09 AM Oxygen Saturation 95 % 04/14/2024 09:59 AM Heart Rate 80 /min 04/14/2024 03:19 PM Temperature 98 [degF] Respiratory Rate 18 /min Blood Pressure Systolic 147 mm[Hg] Blood Pressure Diastolic 77 mm[Hg] 04/14/2024 03:18 PM Oxygen Saturation 96 % 04/14/2024 08:28 PM Oxygen Saturation 95 % 04/15/2024 05:48 AM Oxygen Saturation 94 % 04/15/2024 09:25 AM Temperature 97.1 [degF] Oxygen Saturation 95 % Respiratory Rate 17 /min Heart Rate 74 /min Blood Pressure Systolic 143 mm[Hg] Blood Pressure Diastolic 78 mm[Hg] 04/15/2024 04:44 PM Oxygen Saturation 94 % 04/16/2024 04:54 AM Oxygen Saturation 96 % 04/16/2024 08:51 AM Temperature 97.1 [degF] Oxygen Saturation 95 % Respiratory Rate 18 /min Heart Rate 99 /min Blood Pressure Systolic 125 mm[Hg] Blood Pressure Diastolic 74 mm[Hg] 04/16/2024 08:04 PM Oxygen Saturation 100 % 04/17/2024 06:40 AM Oxygen Saturation 98 % 04/17/2024 01:12 PM Temperature 97 [degF] Oxygen Saturation 94 % Respiratory Rate 16 /min Blood Pressure Systolic 112 mm[Hg] Blood Pressure Diastolic 60 mm[Hg] 04/17/2024 01:11 PM Heart Rate 96 /min 04/17/2024 04:32 PM Oxygen Saturation 95 % 04/18/2024 03:13 AM Oxygen Saturation 93 % 04/18/2024 08:47 AM Heart Rate 67 /min 04/18/2024 11:36 AM Temperature 97.2 [degF] Respiratory Rate 17 /min Heart Rate 96 /min Blood Pressure Systolic 132 mm[Hg] Blood Pressure Diastolic 68 mm[Hg] 04/18/2024 11:35 AM Oxygen Saturation 93 % 04/18/2024 04:40 PM Oxygen Saturation 94 % 04/18/2024 11:38 PM Oxygen Saturation 93 % 04/19/2024 09:46 AM Temperature 98.6 [degF] Respiratory Rate 18 /min 04/19/2024 09:45 AM Oxygen Saturation 92 % Blood Pressure Systolic 97 mm[Hg] Blood Pressure Diastolic 69 mm[Hg] 04/19/2024 09:44 AM Heart Rate 126 /min 04/19/2024 09:43 AM Oxygen Saturation 92 % 04/19/2024 11:58 AM Body Weight 274.8 [lb_av] Body Mass Index 47.16 kg/m2 04/19/2024 03:55 PM Oxygen Saturation 94 % 04/20/2024 06:27 AM Oxygen Saturation 93 % 04/20/2024 09:10 AM Heart Rate 74 /min 04/20/2024 10:32 AM Temperature 97.3 [degF] Oxygen Saturation 94 % Respiratory Rate 17 /min Heart Rate 74 /min 04/20/2024 10:26 AM Blood Pressure Systolic 148 mm[Hg] Blood Pressure Diastolic 76 mm[Hg] 04/20/2024 10:25 AM Oxygen Saturation 94 % 04/20/2024 10:24 AM Body Weight 273 [lb_av] Body Mass Index 46.86 kg/m2 04/20/2024 04:16 PM Oxygen Saturation 95 % 04/21/2024 05:26 AM Oxygen Saturation 93 % 04/21/2024 07:50 AM Temperature 97 [degF] Respiratory Rate 18 /min Heart Rate 90 /min 04/21/2024 10:06 AM Oxygen Saturation 94 % 04/21/2024 07:49 AM Oxygen Saturation 94 % Blood Pressure Systolic 159 mm[Hg] Blood Pressure Diastolic 97 mm[Hg] 04/21/2024 08:19 PM Oxygen Saturation 92 % 04/22/2024 12:54 AM Oxygen Saturation 94 % 04/22/2024 07:36 AM Temperature 97 [degF] Respiratory Rate 17 /min Blood Pressure Systolic 141 mm[Hg] Blood Pressure Diastolic 76 mm[Hg] 04/22/2024 07:35 AM Heart Rate 91 /min 04/22/2024 04:16 PM Oxygen Saturation 95 % 04/23/2024 04:46 AM Oxygen Saturation 93 % 04/23/2024 07:31 AM Temperature 97 [degF] Oxygen Saturation 96 % Respiratory Rate 18 /min Heart Rate 99 /min Blood Pressure Systolic 120 mm[Hg] Blood Pressure Diastolic 83 mm[Hg] 04/23/2024 12:01 PM Body Weight 258.6 [lb_av] Body Mass Index 44.38 kg/m2 04/23/2024 05:27 PM Oxygen Saturation 94 % 04/24/2024 06:39 AM Oxygen Saturation 93 % 04/24/2024 09:42 AM Body Weight 258 [lb_av] Body Mass Index 44.28 kg/m2 04/24/2024 09:30 AM Temperature 97.4 [degF] Respiratory Rate 18 /min Heart Rate 96 /min Blood Pressure Systolic 132 mm[Hg] Blood Pressure Diastolic 68 mm[Hg] 04/24/2024 09:29 AM Oxygen Saturation 94 % 04/24/2024 10:13 PM Oxygen Saturation 94 % 04/25/2024 07:10 AM Oxygen Saturation 95 % 04/25/2024 08:22 AM Heart Rate 99 /min 04/25/2024 11:28 AM Temperature 96.9 [degF] Oxygen Saturation 95 % Respiratory Rate 17 /min Blood Pressure Systolic 147 mm[Hg] Blood Pressure Diastolic 77 mm[Hg] 04/25/2024 01:33 PM Body Weight 258.6 [lb_av] Body Mass Index 44.38 kg/m2 04/25/2024 07:45 PM Oxygen Saturation 95 % 04/26/2024 10:03 AM Temperature 97.3 [degF] Respiratory Rate 17 /min Blood Pressure Systolic 133 mm[Hg] Blood Pressure Diastolic 71 mm[Hg] 04/26/2024 10:02 AM Oxygen Saturation 96 % Heart Rate 100 /min 04/26/2024 12:38 PM Body Weight 273 [lb_av] Body Mass Index 46.86 kg/m2 04/26/2024 05:07 PM Oxygen Saturation 95 % 04/27/2024 06:18 AM Oxygen Saturation 94 % 04/27/2024 08:12 AM Heart Rate 86 /min 04/27/2024 09:28 AM Temperature 97 [degF] Oxygen Saturation 97 % Respiratory Rate 17 /min Heart Rate 86 /min Blood Pressure Systolic 149 mm[Hg] Blood Pressure Diastolic 98 mm[Hg] 04/27/2024 01:40 PM Body Weight 272.6 [lb_av] Body Mass Index 46.79 kg/m2 04/27/2024 04:18 PM Oxygen Saturation 95 % 04/27/2024 11:38 PM Oxygen Saturation 93 % 04/28/2024 08:34 AM Oxygen Saturation 95 % 04/28/2024 09:14 AM Temperature 97 [degF] Oxygen Saturation 95 % Respiratory Rate 17 /min Heart Rate 78 /min Blood Pressure Systolic 128 mm[Hg] Blood Pressure Diastolic 56 mm[Hg] 04/28/2024 09:00 AM Heart Rate 78 /min 04/28/2024 12:04 PM Body Weight 283 [lb_av] Body Mass Index 48.57 kg/m2 04/28/2024 09:18 PM Oxygen Saturation 94 % 04/29/2024 04:23 AM Oxygen Saturation 93 % 04/29/2024 08:47 AM Heart Rate 103 /min 04/29/2024 10:11 AM Temperature 97.3 [degF] Oxygen Saturation 94 % Respiratory Rate 19 /min Heart Rate 103 /min Blood Pressure Systolic 133 mm[Hg] Blood Pressure Diastolic 74 mm[Hg] 04/29/2024 01:34 PM Oxygen Saturation 95 % 04/29/2024 01:09 PM Temperature 97.2 [degF] Oxygen Saturation 95 % Respiratory Rate 18 /min Heart Rate 96 /min Blood Pressure Systolic 119 mm[Hg] Blood Pressure Diastolic 78 mm[Hg] 04/29/2024 04:37 PM Oxygen Saturation 96 % 04/30/2024 04:43 AM Oxygen Saturation 93 % 04/30/2024 08:22 AM Heart Rate 78 /min 04/30/2024 10:10 AM Temperature 97 [degF] Respiratory Rate 19 /min Heart Rate 78 /min Blood Pressure Systolic 124 mm[Hg] Blood Pressure Diastolic 82 mm[Hg] 04/30/2024 10:09 AM Oxygen Saturation 95 % 04/30/2024 09:18 PM Oxygen Saturation 94 % 05/01/2024 07:56 AM Heart Rate 85 /min 05/01/2024 09:38 AM Temperature 97 [degF] Oxygen Saturation 95 % Respiratory Rate 16 /min Heart Rate 85 /min Blood Pressure Systolic 125 mm[Hg] Blood Pressure Diastolic 88 mm[Hg] 05/01/2024 01:21 PM Body Weight 267.8 [lb_av] Body Mass Index 45.96 kg/m2 05/01/2024 04:22 PM Oxygen Saturation 96 % 05/01/2024 11:59 PM Oxygen Saturation 94 % 05/02/2024 08:07 AM Body Weight 268.6 [lb_av] Body Mass Index 46.1 kg/m2 05/02/2024 08:45 AM Heart Rate 93 /min 05/02/2024 10:29 AM Temperature 97.2 [degF] Oxygen Saturation 95 % Respiratory Rate 18 /min Blood Pressure Systolic 124 mm[Hg] Blood Pressure Diastolic 81 mm[Hg] 05/02/2024 03:48 PM Oxygen Saturation 94 % 05/03/2024 05:26 AM Oxygen Saturation 93 % 05/03/2024 08:57 AM Temperature 97.3 [degF] Respiratory Rate 17 /min Blood Pressure Systolic 143 mm[Hg] Blood Pressure Diastolic 86 mm[Hg] 05/03/2024 08:56 AM Oxygen Saturation 95 % Heart Rate 100 /min 05/03/2024 04:03 PM Oxygen Saturation 94 % 05/04/2024 04:44 AM Oxygen Saturation 91 % 05/04/2024 08:55 AM Heart Rate 89 /min 05/04/2024 10:53 AM Temperature 97.1 [degF] Oxygen Saturation 95 % Respiratory Rate 16 /min Heart Rate 89 /min Blood Pressure Systolic 135 mm[Hg] Blood Pressure Diastolic 80 mm[Hg] 05/04/2024 04:42 PM Oxygen Saturation 96 % 05/05/2024 04:39 AM Oxygen Saturation 92 % 05/05/2024 08:46 AM Heart Rate 98 /min 05/05/2024 10:25 AM Temperature 97.1 [degF] Respiratory Rate 16 /min Heart Rate 98 /min Blood Pressure Systolic 124 mm[Hg] Blood Pressure Diastolic 78 mm[Hg] 05/05/2024 10:24 AM Oxygen Saturation 95 % 05/05/2024 01:02 PM Body Weight 268.2 [lb_av] Body Mass Index 46.03 kg/m2 05/05/2024 09:46 PM Oxygen Saturation 94 % 05/05/2024 11:49 PM Oxygen Saturation 93 % 05/06/2024 11:05 AM Heart Rate 100 /min 05/06/2024 12:11 PM Body Weight 268.8 [lb_av] Body Mass Index 46.13 kg/m2 05/06/2024 02:27 PM Temperature 97.1 [degF] Oxygen Saturation 97 % Respiratory Rate 18 /min Blood Pressure Systolic 126 mm[Hg] Blood Pressure Diastolic 84 mm[Hg] 05/06/2024 04:03 PM Oxygen Saturation 95 % 05/07/2024 06:30 AM Oxygen Saturation 93 % 05/07/2024 08:22 AM Heart Rate 69 /min 05/07/2024 10:02 AM Body Weight 268.6 [lb_av] Body Mass Index 46.1 kg/m2 05/07/2024 11:03 AM Temperature 97.1 [degF] Oxygen Saturation 95 % Respiratory Rate 17 /min Heart Rate 69 /min Blood Pressure Systolic 128 mm[Hg] Blood Pressure Diastolic 84 mm[Hg] 05/07/2024 04:45 PM Oxygen Saturation 94 % 05/08/2024 06:33 AM Oxygen Saturation 93 % 05/08/2024 08:41 AM Heart Rate 107 /min 05/08/2024 11:11 AM Temperature 97.6 [degF] Respiratory Rate 18 /min Blood Pressure Systolic 132 mm[Hg] Blood Pressure Diastolic 85 mm[Hg] 05/08/2024 11:10 AM Oxygen Saturation 94 % 05/08/2024 12:11 PM Body Weight 268.6 [lb_av] Body Mass Index 46.1 kg/m2 05/08/2024 05:09 PM Oxygen Saturation 94 % 05/09/2024 06:13 AM Oxygen Saturation 93 % 05/09/2024 08:07 AM Heart Rate 105 /min 05/09/2024 09:37 AM Temperature 97.1 [degF] Oxygen Saturation 94 % Respiratory Rate 17 /min Blood Pressure Systolic 132 mm[Hg] Blood Pressure Diastolic 78 mm[Hg] 05/09/2024 11:43 AM Body Weight 268 [lb_av] Body Mass Index 46 kg/m2 05/09/2024 04:34 PM Oxygen Saturation 95 % 05/10/2024 05:43 AM Oxygen Saturation 93 % 05/10/2024 08:42 AM Heart Rate 76 /min 05/10/2024 09:43 AM Temperature 97.4 [degF] Oxygen Saturation 94 % Respiratory Rate 17 /min Blood Pressure Systolic 129 mm[Hg] Blood Pressure Diastolic 72 mm[Hg] 05/10/2024 05:24 PM Oxygen Saturation 96 % 05/11/2024 09:09 AM Heart Rate 88 /min 05/11/2024 02:06 PM Body Weight 268.6 [lb_av] Body Mass Index 46.1 kg/m2 05/11/2024 01:40 PM Temperature 97.8 [degF] Oxygen Saturation 97 % Respiratory Rate 18 /min Heart Rate 88 /min Blood Pressure Systolic 144 mm[Hg] Blood Pressure Diastolic 81 mm[Hg] 05/11/2024 01:39 PM Oxygen Saturation 95 % 05/11/2024 03:48 PM Oxygen Saturation 96 % 05/12/2024 12:02 AM Oxygen Saturation 93 % 05/12/2024 09:14 AM Temperature 97.5 [degF] Respiratory Rate 16 /min Blood Pressure Systolic 134 mm[Hg] Blood Pressure Diastolic 84 mm[Hg] 05/12/2024 09:04 AM Heart Rate 106 /min 05/12/2024 09:00 AM Oxygen Saturation 93 % 05/12/2024 08:48 AM Body Weight 267.8 [lb_av] Body Mass Index 45.96 kg/m2 05/12/2024 07:56 PM Oxygen Saturation 93 % 05/13/2024 06:10 AM Oxygen Saturation 96 % 05/13/2024 07:50 AM Heart Rate 98 /min 05/13/2024 09:50 AM Temperature 97.5 [degF] Respiratory Rate 17 /min Blood Pressure Systolic 126 mm[Hg] Blood Pressure Diastolic 74 mm[Hg] 05/13/2024 09:49 AM Oxygen Saturation 95 % 05/13/2024 01:53 PM Body Weight 267 [lb_av] Body Mass Index 45.83 kg/m2 05/13/2024 04:15 PM Oxygen Saturation 94 % 05/14/2024 04:22 AM Oxygen Saturation 92 % 05/14/2024 08:33 AM Heart Rate 94 /min 05/14/2024 08:29 AM Oxygen Saturation 94 % 05/14/2024 10:45 AM Temperature 96.8 [degF] Respiratory Rate 16 /min Blood Pressure Systolic 128 mm[Hg] Blood Pressure Diastolic 94 mm[Hg] 05/14/2024 01:42 PM Body Weight 268 [lb_av] Body Mass Index 46 kg/m2 05/14/2024 03:37 PM Oxygen Saturation 95 % 05/15/2024 08:42 AM Oxygen Saturation 94 % Heart Rate 71 /min 05/15/2024 11:22 AM Body Weight 267.2 [lb_av] Body Mass Index 45.86 kg/m2 05/15/2024 10:32 AM Temperature 97.5 [degF] Oxygen Saturation 94 % Respiratory Rate 17 /min Heart Rate 71 /min Blood Pressure Systolic 137 mm[Hg] Blood Pressure Diastolic 83 mm[Hg] 05/15/2024 04:20 PM Oxygen Saturation 95 % 05/16/2024 03:26 AM Oxygen Saturation 93 % 05/16/2024 08:15 AM Heart Rate 92 /min 05/16/2024 10:04 AM Temperature 98.1 [degF] Oxygen Saturation 94 % Respiratory Rate 18 /min Heart Rate 92 /min Blood Pressure Systolic 125 mm[Hg] Blood Pressure Diastolic 83 mm[Hg] 05/16/2024 11:53 AM Body Weight 267.8 [lb_av] Body Mass Index 45.96 kg/m2 05/16/2024 04:08 PM Oxygen Saturation 96 % 05/17/2024 02:47 AM Oxygen Saturation 93 % 05/17/2024 09:08 AM Temperature 97.2 [degF] Oxygen Saturation 94 % Respiratory Rate 17 /min Heart Rate 84 /min Blood Pressure Systolic 129 mm[Hg] Blood Pressure Diastolic 75 mm[Hg] 05/17/2024 09:07 AM Oxygen Saturation 94 % 05/17/2024 08:40 AM Heart Rate 72 /min 05/17/2024 09:05 PM Oxygen Saturation 93 % 05/18/2024 07:56 AM Heart Rate 98 /min 05/18/2024 09:10 AM Temperature 98.4 [degF] Oxygen Saturation 96 % Respiratory Rate 17 /min Blood Pressure Systolic 140 mm[Hg] Blood Pressure Diastolic 85 mm[Hg] 05/18/2024 02:20 PM Oxygen Saturation 93 % 05/18/2024 12:10 PM Body Weight 268.8 [lb_av] Body Mass Index 46.13 kg/m2 05/18/2024 08:21 PM Oxygen Saturation 94 % 05/19/2024 02:48 AM Oxygen Saturation 93 % 05/19/2024 09:10 AM Heart Rate 91 /min 05/19/2024 10:54 AM Temperature 97.8 [degF] Oxygen Saturation 96 % Respiratory Rate 17 /min Blood Pressure Systolic 123 mm[Hg] Blood Pressure Diastolic 81 mm[Hg] 05/19/2024 10:28 PM Oxygen Saturation 95 % 05/20/2024 12:48 AM Oxygen Saturation 93 % 05/20/2024 09:02 AM Heart Rate 102 /min 05/20/2024 09:36 AM Temperature 96.9 [degF] Oxygen Saturation 95 % Respiratory Rate 18 /min Blood Pressure Systolic 114 mm[Hg] Blood Pressure Diastolic 67 mm[Hg] 05/20/2024 01:12 PM Body Weight 269 [lb_av] Body Mass Index 46.17 kg/m2 05/20/2024 04:45 PM Oxygen Saturation 94 % 05/21/2024 12:49 AM Oxygen Saturation 94 % 05/21/2024 08:31 AM Heart Rate 90 /min 05/21/2024 10:03 AM Temperature 97.5 [degF] Respiratory Rate 17 /min Blood Pressure Systolic 130 mm[Hg] Blood Pressure Diastolic 79 mm[Hg] 05/21/2024 10:02 AM Oxygen Saturation 96 % 05/21/2024 12:43 PM Body Weight 271.2 [lb_av] Body Mass Index 46.55 kg/m2 05/21/2024 09:27 PM Oxygen Saturation 95 % 05/22/2024 05:44 AM Oxygen Saturation 96 % 05/22/2024 09:55 AM Body Weight 270 [lb_av] Body Mass Index 46.34 kg/m2 05/22/2024 09:54 AM Temperature 97.9 [degF] Oxygen Saturation 94 % Respiratory Rate 16 /min Heart Rate 90 /min Blood Pressure Systolic 130 mm[Hg] Blood Pressure Diastolic 81 mm[Hg] 05/22/2024 03:55 PM Oxygen Saturation 95 % 05/23/2024 06:02 AM Oxygen Saturation 93 % 05/23/2024 08:55 AM Heart Rate 89 /min 05/23/2024 09:35 AM Temperature 97.8 [degF] Oxygen Saturation 94 % Respiratory Rate 17 /min Blood Pressure Systolic 129 mm[Hg] Blood Pressure Diastolic 88 mm[Hg] 05/23/2024 04:20 PM Oxygen Saturation 95 % 05/24/2024 05:47 AM Oxygen Saturation 94 % 05/24/2024 07:50 AM Heart Rate 95 /min 05/24/2024 09:36 AM Temperature 97.4 [degF] Oxygen Saturation 95 % Respiratory Rate 17 /min Blood Pressure Systolic 113 mm[Hg] Blood Pressure Diastolic 84 mm[Hg] 05/24/2024 09:35 AM Oxygen Saturation 95 % 05/24/2024 03:58 PM Body Weight 270.2 [lb_av] Body Mass Index 46.37 kg/m2 05/24/2024 06:58 PM Temperature 97.8 [degF] Oxygen Saturation 95 % Respiratory Rate 18 /min Heart Rate 95 /min Blood Pressure Systolic 116 mm[Hg] Blood Pressure Diastolic 75 mm[Hg] 05/24/2024 06:54 PM Oxygen Saturation 95 % 05/25/2024 07:40 AM Heart Rate 92 /min 05/25/2024 09:53 AM Temperature 97.3 [degF] Respiratory Rate 18 /min Blood Pressure Systolic 137 mm[Hg] Blood Pressure Diastolic 85 mm[Hg] 05/25/2024 09:52 AM Oxygen Saturation 96 % 05/25/2024 01:26 PM Body Weight 270.2 [lb_av] Body Mass Index 46.37 kg/m2 05/25/2024 09:49 PM Oxygen Saturation 95 % 05/26/2024 08:58 AM Heart Rate 103 /min Social History No smoking Hx information available Encounters Type CPT Code Date Location Provider Indication s encounter report 03/12/2024 09:25 AM Lee Hauser MD 01 encounter report 03/12/2024 01:1 1 PM - 05/26/2024 11:03 AM Radha Hauser MD Advance Directives Directive Description Verification Date Supporting Document(s) Other Directive
--- OUTSIDE RECORDS SUMMARY | 2024-08-15 02:23 | XMS_ITS | Encounter Summary ---
Author Organization [facility] Address [address] [address] Care Team Providers Care Newswriter Name Role Phone Chele Mena MD Primary Care Provider Birgit Whipple MD Unavailable [phone] Dragna Ritter MD Unavailable [phone] Birgit Whipple MD Unavailable Encounter Details Date Type Department Care Team (Late st Contact Info) Description 06/08/2021 MyC Medical Advice Physicians [facility] [address], [address] [place] [address] Birgit Whipple MD [address] [place], [place] [address] Social History Tobacco Use Types Packs/Day Years Used Date Smoking Tobacco: Never Smokeless Tobacco: Never Alcohol Use Standard Drinks/Week Comments No 0 (1 standard drink = 0.6 oz pur e alcohol) PHQ-2 Answer Date Recorded PHQ-2 Score 0 03/29/2020 Comments No Sex and Gender Information Value Date Recorded Sex Assigned at Female 04/04/2021 11:57 AM HAND SLITTER Legal Sex Female 4:19 AM HAND SLITTER Gender Identity Female 04/04/2021 11:57 AM HAND SLITTER Sexual Orientation Not on file documented as of this encounter Plan of Treatment Upcoming Encounters Date Type Department Care Team (Late st Contact Info) Description 07/13/2025 10:30 AM CDT Office Visit M [facility] [address], [address] [place] [address] Birgit Whipple MD [address] [place] [address] documented as of this encounter Visit Diagnoses Not on filedocumented in this encounter Additional Health Concerns Infection Onset Date Last Indicated Resolved Time Rule Out COVID-19 03/25/2024 03/25/2024 03/25/2024 2:35 PM HAND SLITTER documented as of this encounter Care Teams Newswriter Relationship Specialty Start Date End Date Chele Mena MD [facility] [address] [place] [address] PCP - General Internal Medicine 11/28/12 Birgit Whipple MD [facility] [address] [place] [address] Neurology 06/16/14 Dragan Ritter MD [facility] [address] [place] [address] Urology 06/10/17 Birgit Whipple MD [address] [place] [address] Assigned Neuroscience Provider 04/03/20 documented as of this encounter
--- OUTSIDE RECORDS SUMMARY | 2024-08-15 02:23 | XMS_ITS | Encounter Summary ---
Author Organization [facility] Address [address] [facility] [place] [address] Care Team Providers Care Industrial Hygiene Manager Name Role Phone Chele Mena MD Primary Care Provider Birgit Whipple MD Unavailable Dragan Ritter MD Unavailable Birgit Whipple MD Unavailable Encounter Details Date Type Department Care Team (Late st Contact Info) Description 06/06/2023 MyC Medical Advice Physicians [facility] Ep[facility] [address], [address] [place] [address] Birgit Whipple MD [address] [place], [place] [id number] Social History Tobacco Use Types Packs/Day Years [...] Sex Assigned at Female 04/04/2021 11:57 AM BIOANALYST Legal Sex Female 4:19 AM BIOANALYST Gender Identity Female 04/04/2021 11:57 AM BIOANALYST Sexual Orientation Not on file documented as of this encounter Plan of Treatment Upcoming Encounters Date Type Department Care Team (Late st Contact Info) Description 07/13/2025 10:30 AM CDT Office Visit [facility] [address], [address] [place] [address] Birgit Whipple MD [address] [place] [address] documented as of this encounter Visit Diagnoses Not on filedocumented in this encounter Additional Health Concerns Infection Onset Date Last Indicated Resolved Time Rule Out COVID-19 03/25/2024 03/25/2024 03/25/2024 2:35 PM BIOANALYST Assessment Noted Time PHQ-9 Depression Total Score: 3 04/27/19 23 7:00 AM BIOANALYST documented as of this encounter Care Teams Industrial Hygiene Manager Relationship Specialty Start Date End Date Chele Mena MD [facility] [address] [place] [address] PCP - General Internal Medicine 11/28/12 Birgit Whipple MD [facility] [address] [place] [address] Neurology 06/16/14 Dragan Ritter MD [facility] [address] [place] [address] Urology 06/10/17 Birgit Whipple MD [address] [place] [address] Assigned Neuroscience Provider 04/03/20 documented as of this encounter
--- OUTSIDE RECORDS SUMMARY | 2024-08-15 02:23 | XMS_ITS ---
Author Name [facility], [id number] Address [address] [place] [address] [address] [address] Organization [facility] Address [address] [facility] [address] [place] [address] Care Team Providers Care Electronics Research Engineer Name Role Phone Arin Stiles Unavailab le Allergies and Adverse Reactions Medication/Group Name Reaction Severity Date Fenofibric Acid 02/26/2019 lacosamide 02/26/2019 Plan Date Type Value 02/26/2019 APPOINTMENT RC - 6 MOS SCAR RC - 6 MOS SCAR RC Reason for Visit RC - 6 MOS SCAR RC - 6 MOS SCAR RC Encounters Date Name 02/26/2019 Capsular breast cont racture of breast implant (disorder) 02/26/2019 History of breast ca ncer 02/26/2019 Postoperative seroma (disorder) 02/26/2019 Postoperative wound infection (disorder) 02/26/2019 Surgical follow-up ( finding) Medications Date Name Route Dose Frequency Instructions Start Date End Date Status Divalproex Oral Delayed Release 3.0 tablet,de layed release (/EC) active Miscellaneous Drug PO 1.0 TABLET(S) daily 019 active 019 Insulin Glargine-Lixisen atide Subcutaneous Pen 100 unit-33 mcg/mL sub-Q 0.15 ML as directed 16 units subq at betime 019 active Nystatin Topical Powder Topical 1.0 GRAM BID 019 active 019 Metoprolol Oral (Tartrate) PO 50.0 MG BID 019 active Aspirin Oral PO 1.0 TABLET(S) daily 06/17/2 019 active Acetaminophen Oral PO 2.0 TABLET(S) as directed active Simvastatin Oral PO 1.0 TABLET(S) daily active Primidone Oral PO 1.0 TABLET(S) daily active Pregabalin Oral PO 1.0 CAPSULE(S ) TID active Lisinopril Oral PO 1.0 TABLET(S) daily active Problems Diagnosis Status Date of Diagnosi s Postoperative seroma (disorder) Active Postoperative wound infection (disorder) Active 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
--- OUTSIDE RECORDS SUMMARY | 2024-08-15 02:23 | XMS_ITS | Clinical Summary ---
Author Organization [employer] Address [address] [place] [address] Care Team Providers Care Timber Treatment Plant Operator Name Role Phone Chele Mena MD Primary Care Provider [phone] Mae Almeida Unavailable [phone] Allergies Active Allergy Reactions Criticality Noted [...] times daily. 60 tablet 0 6 Active [id number] -Fish Oil (FISH OIL) 1,000 mg (120 [...] rash 01/03/2010 05/02/2012 Delirium 12/24/2009 05/02/2012 Immunizations Immunization Administration Dates Next Due AMB INFLUENZA, IIV4 (AGE=>6M OS) MDV (Flu Clinic Only) 11/09/2015,12/09/2014,11/09/2013,2012,11/21/2012 COVID-19 vaccine (Reframe It 30mcg/0.3mL) PF, MDV 05/07/2020,04/16/2020 Influenza A (H1N1), [...] Name Comments Other Father at 51yo of [place]. Cancer-breast Maternal Aunt mothers twin dx age [...] on file Legal Sex Female 5:24 AM RAINBOW TROUT FARM MANAGER Gender Identity Not on file Sexual Orientation Not on file Obstetrics History Last Filed Vital Signs Vital Sign Reading Time Taken Comments Blood Pressure 153/85 03/09/2021 9:54 AM RAINBOW TROUT FARM MANAGER Pulse 78 03/09/2021 9:54 AM RAINBOW TROUT FARM MANAGER Temperature 36.7 C (98 F) 03/09/2021 9:54 AM RAINBOW TROUT FARM MANAGER Respiratory Rate 20 05/09/2020 9:51 AM CDT Oxygen Saturation 97% 03/09/2021 9:54 AM RAINBOW TROUT FARM MANAGER Inhaled Oxygen Concentration - - Weight 125.5 kg (276 lb 9.6 oz) 03/09/2021 9:54 AM RAINBOW TROUT FARM MANAGER Height 162.6 cm (5' 4) 04/02/2018 10:1 9 AM RAINBOW TROUT FARM MANAGER Body Mass Index 47.48 04/02/2018 10:19 AM RAINBOW TROUT FARM MANAGER Plan of Treatment Health Maintenance Due Date Last Done Comments Depression screening for age 12+ 1957 BMI (ht and wt on same day) for age 18+ 09/01/1963 Hepatitis C screening for age 18-79 09/01/1963 DEXA/DXA scan for age 65+ 2010 Medicare Wellness for age 65+ 2010 RSV vaccine for adults or (1 - 1-dose 75+ series) 2020 COVID-19 vaccine series ( season) 2023 06/20/2021, 11/30/2020, 05/07/2020, Additional history exists Influenza Vaccine (Season Ended) 2024 11/14/2018, 01/25/2018, 12/09/2017, Additional history exists Tetanus booster 12/05/2028 12/05/2018, 10/27, 11/21/2012 Tdap Completed 11/21/2012 Pneumococcal series for age 50+ Completed 10/23/2017, 04/07/2015, 12/01/2013, Additional history exists Zoster (shingles) series for age 50+ Completed 11/13/2018, 08/07/2018, 10/23/2017, Additional history exists Hepatitis B series for 19+ Aged Out N o longer eligible based on patient's age to complete this topic Medical Devices Implanted Type Area Landing Worker Device Identifier Shelf Expiration Date Model / Serial / Lot [id number] tan room supervisor Implanted:Qty: 1 on 01/29/2011 at [facility] Explanted:at [facility] (Quantity not on file) Right: Breast [employer] - [employer] 09/26/2014 [id number]-15-[id number] / [id number] / Description:TISSUE MANAGER MARITIME [id number] tan room supervisor Implanted:Qty: 1 on 01/29/2011 at [facility] Explanted:at [facility] (Quantity not on file) Left: Breast [employer] - [employer] 10/13/2014 133MX-15-[id number] / [id number] / Description:TISSUE MANAGER MARITIME [id number] [id number] Mammary 700cc [[id number]] Implanted:Qty: 1 on 08/28/2011 at [facility] Explanted:at [facility] (Quantity not on file) Right: Breast J [employer] J Speculator [employer] [id number] # / [id number] / [id number] Implnt Mammary 700cc - [id number] Implanted:Qty: 1 on 08/28/2011 at [facility] Explanted:at [facility] (Quantity not on file) Left: Breast [employer] [id number] # / [id number] / [id number] 7breast 600cc Memorygel Rnd High Smooth Silcn Implanted:Qty: 1 on 02/12/2018 by Arin Stiles MD at [facility] Explanted:at [facility] (Quantity not on file) Left: Breast J [employer] Speculator [employer] 10/11/2021 [id number] # / [id number] Additional Health Concerns Infection Onset Date Last Indicated CLOSTRIDIUM DIFFICILE 04/03/2018 04/03/2018 Insurance MEDICARE PART B HB ONLY MEDICARE PART A HB ONLY MEDICA SELECT SOLUTION MEDICARE PB ONLY MEDICARE PPS Advance Directives Documents on File Type Date Recorded Patient Customer Assistant Expl anation Healthcare Directive 01/29/2011 09/20/10 * [...] 11:39 AM 01/02/2012 1:55 PM Care Teams Timber Treatment Plant Operator Relationship Specialty Start Date End Date Chele Mena MD [address] [place] [address] PCP - General 11/24/12 Mae Almeida AuD [address] [place] [address] Audiology 11/24/12
--- OUTSIDE RECORDS SUMMARY | 2024-08-15 02:24 | XMS_ITS | Clinical Summary ---
[facility] Address [address] [place] [address] Care Team Providers Care Stove Cleaner Name Role Phone Andrew Garvey MD Primary Care Provider [phone] Source Comments You are receiving this document [...] for each transition of care or referral. [facility] Allergies Active Allergy Reactions Criticality Noted Date Comments Bee Venom Other, see comments 01/25/2021 Lacosamide Other, see comments 12/21/2020 Oxcarbazepine Hives,Rash High 12/27/2009 Medications acetaminophen (ACETAMINOPHEN 8 HOUR) 650 MG controlled release tablet Activ e aspirin EC (ASPIR-LOW) 81 MG enteric coated tablet Active divalproex (DEPAKOTE ER) 250 MG 24 hour release tablet 11/05/2020 Acti ve ACCU-CHEK GUIDE test strip 11/18/2020 Active HYDROcodone-acet aminophen (NORCO) 5-325 MG tablet 01/23/2021 Active insulin glargine (BASAGLAR) 100 UNIT/ML KWIKPEN 01/06/2021 Act hortencia insulin glargine (LANTUS) 100 UNIT/ML injection Active ACCU-CHEK SOFTCLIX lancets 11/18/2020 Ac tive lisinopril (ZESTRIL) 10 MG tablet 12/11/2020 Active metoprolol tartrate (LOPRESSOR) 50 MG tablet 12/20/2020 Active nystatin (MYCOSTATIN) 521837 UNIT/GM powder 01/05/2021 Active pregabalin (LYRICA) 50 MG capsule 01/02/2021 Active primidone (MYSOLINE) 250 MG tablet 12/19/2020 Active simvastatin (ZOCOR) 20 MG tablet 11/19/2020 Active tolterodine (DETROLLA) 4 MG 24 hour release capsule 11/22/2020 Active omega-3 fatty acids (FISH OIL) 1000 MG capsule Take 2 g by mouth daily. Active multivitamin (THERAGRAN) tablet Take 1 Tablet by mouth daily. Active CALCIUM CARBONATE-VITAMI N D OR Active Immunizations Immunization Administration Dates Next Due Flu Vac Preserv Free (3+yrs) 11/21/2012 HepA Adult (19+ yrs) 01/25/2021 Influenza IIV3 (Trivalent) F luana Highdose, 65+ Yrs (10166) 11/14/2018,12/09/2017,11/09/2013 Influenza IIV4 (Quadrivalent ) 0.5mL (93472) 11/09/2015 Influenza IIV4 (Quadrivalent ) Fluad, 65+ Yrs 11/22/2020 Influenza, Unspecified Formulation 01/25/2018 PCV13 (Prevnar) 04/07/2015 PPSV23 (Pneumovax) 10/23/2017, 4,09/08/2009,2009 Pfizer Monovalent 12+ Purple Top 11/30/2020,04/25,04/16/2020 Td (7+ yrs) 12/05/2018 Tdap 11/21/2012 Typhoid (Typhim Vi, IM) 01/25/2021 Zoster (Zostavax) 12/09/2012 Zoster RZV (Shingrix) 08/07/2018,10/23/2017 Social History Tobacco Use Types Packs/Day Years Used Date Smoking Tobacco: Never Assessed Comments Unknown Sex and Gender Information Value Date Recorded Sex Assigned at Female 01/02/2021 9:25 PM TRAFFIC POLICE OFFICER Legal Sex Female 5:01 AM CDT Gender Identity Female 01/02/2021 9:25 PM TRAFFIC POLICE OFFICER Sexual Orientation Not on file Plan of Treatment Health Maintenance Due Date Last Done Comments Hep C Screening (Preventive Services) 1945 Medicare Annual Wellness Visit 1945 Dexa 2010 RSV Vaccine (1 - 1-dose 75+ series) 2020 HepA Vaccine (2 of 2 - Risk 2-dose series) 07/26/2021 01/25/2021 COVID-19 Vaccine ( season) 2023 11/30/2020, 05/07/2020, 04/16/2020 Influenza Vaccine (Season Ended) 2024 11/22/2020, 11/14/2018, 01/25/2018, Additional history exists DTaP/Tdap/Td Vaccine (3 - Tdap) 12/05/2028 12/05/2018, 11/21/2012 Pneumococcal Vaccine 50+ Yrs Completed , 04/07/2015, 12/01/2013, Additional history exists Zoster/Shingles Vaccine Completed 11/14/19, 08/07/2018, 10/23/2017, Additional history exists HepB Vaccine Aged Out No longer eligi ble based on patient's age to complete this topic Hib Vaccine Aged Out No longer eligi ble based on patient's age to complete this topic MCV4 Vaccine Aged Out No longer eligi ble based on patient's age to complete this topic Meningococcal B Vaccine Aged Out No l onger eligible based on patient's age to complete this topic Insurance MEDICARE MEDICARE Care Teams Stove Cleaner Relationship Specialty Start Date End Date Andrew Garvey MD [address] [place] [address] PCP - General 10/05/99
--- OUTSIDE RECORDS SUMMARY | 2024-08-15 02:24 | XMS_ITS | Encounter Summary ---
Author Organization [facility] [place] Address [address] [place] [address] Care Team Providers Care Children Teacher Name Role Phone Chele Mena MD Primary Care Provider Birgit Whipple MD Unavailable [phone] Dragan Ritter MD Unavailable [phone] Birgit Whipple MD Unavailable [phone] Encounter Details Date Type Department Care Team (Latest Contact Info) Description 07/09/2024 Travel Social History Tobacco Use Types Packs/Day [...] Answer Date Recorded Do you have housing? (Housin g is defined as stable permanent housing and does not include staying outside in a car, in a tent, in an abandoned building, in an overnight assisted, or couch-surfing.) Yes 03/26/2024 Are you worried [...] Sex Assigned at Female 04/04/2021 11:57 AM DIRECTOR OF CLAIMS Legal Sex Female 4:19 AM DIRECTOR OF CLAIMS Gender Identity Female 04/04/2021 11:57 AM DIRECTOR OF CLAIMS Sexual Orientation Not on file documented as of this encounter Plan of Treatment Upcoming Encounters Date Type Department Care Team (Late st Contact Info) Description 07/13/2025 10:30 AM CDT Office Visit Physicians [facility] [address], [facility] [address] [place] [address] Birgit Whipple MD [address] [place] [id number] documented as of this encounter Visit Diagnoses Not on filedocumented in this encounter Additional Health Concerns Assessment Noted Time PHQ-9 Depression Total Score: 3 04/27/19 23 7:00 AM DIRECTOR OF CLAIMS documented as of this encounter Care Teams Children Teacher Relationship Specialty Start Date End Date Chele Mena MD [facility] [address] [place] [address] PCP - General Internal Medicine 11/28/12 Birgit Whipple MD [facility] [address] [place] [address] Neurology 06/16/14 Dragan Ritter MD [facility] [address] [place] [address] Urology 06/10/17 Birgit Whipple MD [address] [place] [id number] Assigned Neuroscience Provider 04/03/20 documented as of this encounter
--- OUTSIDE RECORDS SUMMARY | 2024-08-15 02:24 | XMS_ITS ---
Author Name Interface, [id number] Address [address] [place] [address] [address] [address] Organization [facility] Address [address] [facility] [address] [place] [address] Care Team Providers Care Senior Applications Analyst Name Role Phone Arin Stiles Unavailab le [...]
--- OUTSIDE RECORDS SUMMARY | 2024-08-15 02:24 | XMS_ITS | Encounter Summary ---
Author Organization [facility] Address [address] [place] [address] Care Team Providers Care Lead Laying And Gluing Machine Operator Name Role Phone Chele Mena MD Primary Care Provider Birgit Whipple MD Unavailable [phone] Dragan Ritter MD Unavailable [phone] Birgit Whipple MD Unavailable [phone] Encounter Details Date Type Department Care Team (Late st Contact Info) Description 04/15/2024 [facility] M Physicians [facility] Ep[facility] [address] [facility], [address] [place] [address] [facility] Social History Tobacco Use Types Packs/Day Years [...] in an abandoned building, in an overnight [facility], or couch-surfing.) Yes 03/26/2024 Are you worried [...] Sex Assigned at Female 04/04/2021 11:57 AM EMBROIDERY SUPERVISOR Legal Sex Female 4:19 AM EMBROIDERY SUPERVISOR Gender Identity Female 04/04/2021 11:57 AM EMBROIDERY SUPERVISOR Sexual Orientation Not on file documented as of this encounter Plan of Treatment Upcoming Encounters Date Type Department Care Team (Late st Contact Info) Description 07/13/2025 10:30 AM CDT Office Visit M Physicians [facility] [address], [address] [place] [address] Birgit Whipple MD [address] [place] [address] [phone] documented as of this encounter Visit Diagnoses Not on filedocumented in this encounter Additional Health Concerns Assessment Noted Time PHQ-9 Depression Total Score: 3 04/27/19 23 7:00 AM EMBROIDERY SUPERVISOR documented as of this encounter Care Teams Lead Laying And Gluing Machine Operator Relationship Specialty Start Date End Date Chele Mena MD [facility] [address] [place] [address] PCP - General Internal Medicine 11/28/12 Birgit Whipple MD [facility] [address] [place] [address] Neurology 06/16/14 Dragan Ritter MD [facility] [address] [place] [address] Urology 06/10/17 Birgit Whipple MD [address] [place] [address] Assigned Neuroscience Provider 04/03/20 documented as of this encounter
--- OUTSIDE RECORDS SUMMARY | 2024-08-15 02:24 | XMS_ITS | Encounter Summary ---
Author Organization [place] Address [address] [address] Care Team Providers Care Machine Skiver Name Role Phone Chele Mena MD Primary Care Provider Birgit Whipple MD Unavailable [phone] Dragan Ritter MD Unavailable [phone] Birgit Whipple MD Unavailable [phone] Encounter Details Date Type Department Care Team (Latest Contact Info) Description 07/06/2024 Travel Social History Tobacco Use Types Packs/Day [...] Sex Assigned at Female 04/04/2021 11:57 AM PATIENT ASSISTANT Legal Sex Female 4:19 AM PATIENT ASSISTANT Gender Identity Female 04/04/2021 11:57 AM PATIENT ASSISTANT Sexual Orientation Not on file documented as of this encounter Plan of Treatment Upcoming Encounters Date Type Department Care Team (Late st Contact Info) Description 07/13/2025 10:30 AM CDT Office Visit Physicians [facility] Ep[facility]psy Care [address], [facility] [address] [place] [address] Birgit Whipple MD [address] [place] [address] documented as of this encounter Visit Diagnoses Not on filedocumented in this encounter Additional Health Concerns Assessment Noted Time PHQ-9 Depression Total Score: 3 04/27/19 23 7:00 AM PATIENT ASSISTANT documented as of this encounter Care Teams Machine Skiver Relationship Specialty Start Date End Date Chele Mena MD [facility] [address] [place] [address] PCP - General Internal Medicine 11/28/12 Birgit Whipple MD [facility] [address] [place] [address] Neurology 06/16/14 Dragan Ritter MD [facility] [address] [place] [address] Urology 06/10/17 Birgit Whipple MD [address] [place] [address] Assigned Neuroscience Provider 04/03/20 documented as of this encounter
--- OUTSIDE RECORDS SUMMARY | 2024-08-15 02:24 | XMS_ITS | CCD ---
Author Name Interface, [id number] Address [address] [place] [address] [address] [place] [address] [facility] Address [facility] [address] [address] Care Team Providers Care Roll Operator Name Role Phone Arin Stiles Unavailable Unavailab le Reason for Visit Encounters Medications Problems Social History
--- OUTSIDE RECORDS SUMMARY | 2024-08-15 02:24 | XMS_ITS | Data Portability ---
Author Organization [facility], [facility] Address [address] [place] [address] Care Team Providers Care Internal Specialist Name Role Phone ORA ARIAS Primary Care Provider Assessment No assessment recorded. Plan of Treatment Reminders Order Date Submit Date Provider Last Modified By Organization Details Last Modified Time Details Appointments None recorded . Lab urinalys is, dipstick 2023 024 [email or web address] [facility], [address], [place], [address], 4 11:23:36 urinalys is, dipstick 2021 022 [email or web address] Not available 15:50:03 Referral None recorded . Procedures None recorded . Surgeries None recorded . Imaging None recorded . Medication Orders Detrol LA 4 mg capsule, extended release 2022 023 [facility] [id number] [facility] [employer], [address] [place], [address], 3 15:49:38 tolterod ine ER 4 mg capsule, extended release 24 hr 2021 022 [facility] [address] [address] [employer], [address] [place], [address], 2 16:14:15 Patient TargetsNo targets recorded. Patient InstructionsNo instructions recorded. Reason for Referral None Reported. Results Created Date Observation Date Name Description Value Unit Range Abnormal Flag Note LastModifiedBy Organization Detail LastModifiedTime 08/15/19 22 08/14/2021 urina lysis , dipst ick pH-Status 6.5 Not Available [facility] [address], [place], [address], 08/14/2021 15:44:46 08/15/19 22 08/14/2021 urina lysis , dipst ick Nitrates-Sta tus negati ve Not Available [facility] [address], [place], [address], 08/14/2021 15:44:46 08/15/19 22 08/14/2021 urina lysis , dipst ick Blood-Status Negati ve Not Available [facility] [address], [place], [address], 08/14/2021 15:44:46 08/15/19 22 08/14/2021 urina lysis , dipst ick Leuko-Status Negati ve Not Available [facility] [address], [place], [address], 08/14/2021 15:44:46 08/15/19 22 08/14/2021 urina lysis , dipst ick Specimen Type Voided Not Available [facility] [address], [place], [address], 08/14/2021 15:44:46 12/27/19 24 12/27/2023 urina lysis , dipst ick BLOOD Negati ve Not Available [facility] [address], [place], [address], 12/27/2023 11:11:36 12/27/19 24 12/27/2023 urina lysis , dipst ick BILIRUBIN Negati ve Not Available [facility] [address], [place], [address], 12/27/2023 11:11:36 12/27/19 24 12/27/2023 urina lysis , dipst ick UROBILINOGEN 1.0 mg/dL Not Available [facility] [address], [place], [address], 12/27/2023 11:11:36 12/27/19 24 12/27/2023 urina lysis , dipst ick KETONES Trace (5 mg/dL) Not Available [facility] [address], [place], [address], 12/27/2023 11:11:36 12/27/19 24 12/27/2023 urina lysis , dipst ick PROTEIN Negati ve Not Available [facility] [address], [place], [address], 12/27/2023 11:11:36 12/27/19 24 12/27/2023 urina lysis , dipst ick NITRITES Negati ve Not Available [facility] [address], [place], [address], 12/27/2023 11:11:36 12/27/19 24 12/27/2023 urina lysis , dipst ick GLUCOSE Negati ve Not Available [facility] [address], [place], [address], 12/27/2023 11:11:36 12/27/19 24 12/27/2023 urina lysis , dipst ick p.H. 5.0 Not Available [facility] [address], [place], [address], 12/27/2023 11:11:36 12/27/19 24 12/27/2023 urina lysis , dipst ick S.G. (Specific Harvey) 1.025 Not Available [facility] [address], [place], [address], 12/27/2023 11:11:36 12/27/19 24 12/27/2023 urina lysis , dipst ick LEUKOCYTES Negati ve Not Available [facility] [address], [place], [address], 12/27/2023 11:11:36 08/15/19 22 08/14/2021 bladd er scan (PROC ) No observ ation record ed. [email or web address] Not Available 03/2022 16:05:13 Result Notes None recorded. Procedures Surgical History Date Name Laterality Status Provider Name and Address Organization Details Recorded Time 024 Urinalysis completed Godfrey Levi [facility] 12/27/2023 11:11:30 023 Bladder Scan completed Sarah Tony [facility] 09/26/2022 15:40:31 022 [facility] 08/14/2021 16:00:13 [facility]end[facility] 08/14/2021 15:46:37 Carpal tunnel surgery [facility] 08/14/2021 15:47:00 [facility] 08/14/2021 15:47:32 [facility] 08/14/2021 15:47:37 Total Hysterectomy completed Jerryc yohannes Sousa [facility] 08/14/2021 15:48:05 total knee [facility] 08/14/2021 15:58:33 excision of bilateral breasts completed [facility] 08/14/2021 15:58:18 procedure on wrist completed Rebecc a Lars [facility] 08/14/2021 15:58:54 Imaging Results None recorded. Procedure Notes None recorded. Medical Equipment None Reported. Allergies Allergen ID Allergen Name Allergen Category Reaction Reaction Severity Criticality Documentation Date Start Date Code Code System Note Provider Name and Address Organization Details Recorded Time 676151 bee pollen environme nt,medica tion Not available Not available Not available 08/14/2021 68050 7 RxNorm Carmen Stromquis t null, [facility] 2 15:45:03 344323 ceftriaxo ne medicatio n Not available Not available Not available 08/14/2021 2193 RxNorm Carmen Stromquis t null, [facility] 2 15:45:11 018338 Trileptal medicatio n Not available Not available Not available 08/14/2021 33235 0 RxNorm Carmen Stromquis t null, [facility] 2 15:45:20 898625 Vimpat medicatio n Not available Not available Not available 08/14/2021 47326 9 RxNorm Carmen Stromquis t null, [facility] 2 15:45:26 Medications Name Sig Start Date Stop Date [...] 2nd Gen Pen Needle 32 gauge x 5/32 USE THREE TIME DAILY active Not Available [...] Updated DateTime 08/14/2021 165.1 cm 45.6 kg/m2 754983.31 g Carmen Sousa [facility] 08/14/2021 15:56:08 Date Recorded Body height Body mass index (BMI) Body weight Provider Name and Address Organization Details Last Updated DateTime 09/26/2022 165.1 cm 45.6 kg/m2 021088.31 zonia Tony [facility] 09/26/2022 15:39:34 Date Recorded Body height Body mass index (BMI) Body weight Provider Name and Address Organization Details Last Updated DateTime 12/27/2023 165.1 cm 45.8 kg/m2 684660.9 zonia Godfrey Levi [facility] 12/27/2023 11:28:25 Social History Question Answer Notes LastModified by Organizat Ling[employer] Details LastModified Time Tobacco Smoking Status Never Smoker Carmen fermin [facility] 08/14/2021 15:46:31 What Was The Date Of Your Most Recent Tobacco Screening? 12/27/2023 [email or web address] Information not available 12/27/2023 Has Tobacco Cessation Counseling Been Provided? No Information not available 09/26/2022 Sex: Female Functional Status Question Answer Note LastModified by Organizat ion Details LastModified Time Do you use any illicit or recreational drugs? No Information not available 09/26/2022 Do you or have you ever used any other forms of tobacco or nicotine? No Information not available 09/26/2022 What is your level of alcohol consumption? None [email or web address] Information not available 08/14/2021 Mental Status None recorded. Family History Relationship Description Onset Age of this Age Resolved Age Notes LastModified by Organization Details LastModified Time Father No current problems or disability [email or web address] Not available 12/26 11:29:05 Mother No current problems or disability [email or web address] Not available 12/26 11:29:05 Medical History Condition Response Diabetes Y Sexually Transmitted Infection N Other Y High Blood Pressure Y Kidney Stones N High Cholesterol Y GERD/Acid Reflux Y Cancer Y Lung Disease N Gynecological HistoryNo gynecological history recorded. Obstetrics History GPAL:G 0 P 0 0 0 0 Immunizations Vaccine Type Date Status Note Provider Nam e and Address Organization Details Recorded Time zoster recombinant 9 completed Godfrey fermin [facility] 12/27/2023 11:11:10 zoster recombinant 8 completed Godfrey Levi null, [facility] 12/27/2023 11:11:10 zoster recombinant 9 completed Godfrey Levi null, [facility] 12/27/2023 11:11:10 Influenza, high-dose, quadrivalent, PF 2 completed Godfrey Levi null, [facility] 12/27/2023 11:11:10 Influenza, adjuvanted, quadrivalent, PF 1 completed Godfrey Levi null, [facility] 12/27/2023 11:11:10 COVID-19, mRNA, LNP-S, bivalent, PF, 50 mcg/0.5 mL or 25mcg/0.25 mL dose 3 completed Godfrey Levi null, [facility] 12/27/2023 11:11:10 COVID-19, mRNA, LNP-S, bivalent, PF, 50 mcg/0.5 mL or 25mcg/0.25 mL dose 2 completed Godfrey Levi null, [facility] 12/27/2023 11:11:10 influenza, unspecified formulation 8 completed Godfrey Levi null, [facility] 12/27/2023 11:11:10 Tdap 3 completed Godfrey Levi [facility], [facility] 12/27/2023 11:11:10 Influenza, high-dose, trivalent, PF 4 completed Godfrey Levi null, [facility] 12/27/2023 11:11:10 Influenza, high-dose, trivalent, PF 9 completed Godfrey Levi null, [facility] 12/27/2023 11:11:10 Influenza, high-dose, trivalent, PF 8 completed Godfrey Levi null, [facility] 12/27/2023 11:11:10 Influenza, split virus, trivalent, PF 3 completed Godfrey Levi null, [facility] 12/27/2023 11:11:10 Td (adult), 2 Lf tetanus toxoid, preservative free, adsorbed 10/11/201 9 completed Godfrey Levi null, [facility] 12/27/2023 11:11:10 Hep A, adult 1 completed Godfrey Levi null, [facility] 12/27/2023 11:11:10 typhoid, ViCPs 1 completed Godfrey Levi null, [facility] 12/27/2023 11:11:10 Influenza, split virus, quadrivalent, PF 6 completed Godfrey Levi null, [facility] 12/27/2023 11:11:10 pneumococcal polysaccharide PPV23 4 completed Carmen Stromquist null, [facility] 08/14/2021 15:34:47 COVID-19, mRNA, LNP-S, PF, 30 mcg/0.3 mL dose, sridhar-sucrose 2 completed Carmen Stromquist null, [facility] 08/14/2021 15:34:47 COVID-19, mRNA, LNP-S, PF, 30 mcg/0.3 mL dose 1 completed Carmen Stromquist null, [facility] 08/14/2021 15:34:47 COVID-19, mRNA, LNP-S, PF, 30 mcg/0.3 mL dose 1 completed Carmen Stromquist null, [facility] 08/14/2021 15:34:47 COVID-19, mRNA, LNP-S, PF, 30 mcg/0.3 mL dose 1 completed Carmen Stromquist null, [facility] 08/14/2021 15:34:47 Pneumococcal conjugate PCV 13 6 completed Carmen Stromquist null, [facility] 08/14/2021 15:34:47 pneumococcal polysaccharide PPV23 8 completed Carmen Stromquist null, [facility] 08/14/2021 15:34:47 Past Encounters Encounter ID Performer Location Encounter Start Date Encounter Closed Date Diagnosis/Indication Diagnosis SNOMED-CT Code Diagnosis ICD10 Code Diagnosis Note [id number] TRISHA PERES PA-C [facility] [address] [place] [address] 08/14/2021 15:22:16 08/16/2021 08:52:31 Urgent desire to urinate 16300830 R39.15 Limit intake of caffeine and carbonate beverages. Overactive urinary bladder 601502850 N32.81 - Ctn to take detrol 4 mg per day, tolerating well.- Follow up in a year . [id number] [facility] GONZALE[facility] [address] [place] [address] 09/26/2022 15:20:25 10/02/2022 19:08:29 Urgent desire to urinate 56678433 R39.15 Reviewed first and second line OAB management Limit bladder irritantsR ecommend timed voiding every 2hrsFailed oxybutynin and myrbetriqG ood response historical ly with tolterodin e 4mg, cont this for nowOption to trial gemtesa, samples givenCont kegel exercises as well Overactive urinary bladder 875378158 N32.81 Urge incon tinence of urine 13850108 N39.41 [id number] HALEY GONZALEZ [facility] [address] [place] [address] 12/27/2023 10:51:36 12/30/2023 14:26:57 Urgent desire to urinate 99963240 R39.15 Reviewed first and second line OAB management Limit bladder irritantsR ecommend timed voiding every 2hrsFailed oxybutynin and myrbetriqG ood response historical ly with tolterodin e 4mg, but now worsening sxWould trial gemtesa next, samples given; ok to send script if she callsCont kegel exercises as well f/u 2-3mo for recheck Overactive urinary bladder 407112465 N32.81 Urge incon tinence of urine 13868782 N39.41 Nocturia 847415829 R35.1 Health Concerns Section Related Observation LastModified by Organization Detai ls LastModified Time None Recorded Concern Status LastModified by Organization Details LastModified Time None Recorded Advance Directives Directive None Recorded Payers Insurance Date Sequence Insurance Name Policy Number Policy Minaya Covered Member ID Minaya Member ID Guarantor Name 12/27/2023 2 MEDICA (MEDICARE SUPPLEMENT) [id number] Kisha Jackson Prueser [id number] Kisha Jackson Prueser 12/27/2023 1 MEDICARE [place]: [facility] [employer] [facility] Kisha Jackson Prueser [id number] Kisha Jackson Keanuchelsiyanna Notes Date Note Type Note Provider Name [...] normalPVR today: 0 cc TRISHA PERES PA-C [address] [facility],[address], [place], [address], [facility] 08/14/2021 16:19:30 09/26/2022 text/html Kisha is [...] void for UA todayBUS 1cc HALEY GONZALEZ [address] [place] [address],[address], [place], [address], [facility] 09/26/2022 16:07:36 12/27/2023 text/html 78F followed [...] for this in the past, CT from 2016 showed a 5cm high density area on the left kidney and she underwent left partial nephrectomy on 07/29/17- path was benign. Mhx: TOM, baseline dry mouth UA neg Here today with her , Pratik ANNE DUPREE, HALEY [address] [facility],[address], [place], [address], [facility] 12/27/2023 11:51:28 OBGyn Episode No OBEpisode recorded.
--- OUTSIDE RECORDS SUMMARY | 2024-08-15 02:24 | XMS_ITS | Encounter Summary ---
Author Organization [facility] Address [address] [place] [address] Care Team Providers Care Youth Accommodation Support Worker Name Role Phone Chele Mena MD Primary Care Provider Birgit Whipple MD Unavailable [phone] Dragan Ritter MD Unavailable Birgit Whipple MD Unavailable [phone] Encounter Details Date Type Department Care Team (Late st Contact Info) Description 04/13/2022 External Order Results [facility] [address] [place] [address] Nader Colon MD [facility] [address] [id number] Focal epilepsy (H); Tremor Social History Tobacco Use Types Packs/Day Years Used Date Smoking Tobacco: Never Smokeless Tobacco: Never Alcohol Use Standard Drinks/Week Comments No 0 (1 standard drink = 0.6 oz pur e alcohol) PHQ-2 Answer Date Recorded PHQ-2 Score 0 03/29/2020 Comments No Sex and Gender Information Value Date Recorded Sex Assigned at Female 04/04/2021 11:57 AM BRAZING MACHINE OPERATOR Legal Sex Female 4:19 AM BRAZING MACHINE OPERATOR Gender Identity Female 04/04/2021 11:57 AM BRAZING MACHINE OPERATOR Sexual Orientation Not on file documented as of this encounter Plan of Treatment Upcoming Encounters Date Type Department Care Team (Late st Contact Info) Description 07/13/2025 10:30 AM CDT Office Visit [facility] [address], [address] [place] [phone] Birgit Whipple MD [address] [place] [address] documented as of this encounter Procedures Procedure Name Priority Date/Time Associated Diagnosis Comments VALPROIC ACID FREE AND TOTAL Routine 04/13/2022 3:26 PM BRAZING MACHINE OPERATOR Focal epilepsy (H) VALPROIC ACID Routine 04/13/2022 3:26 PM BRAZING MACHINE OPERATOR Focal epilepsy (H) PRIMIDONE LEVEL Routine 04/13/2022 3:26 PM BRAZING MACHINE OPERATOR Tremor PHENOBARBITAL LEVEL Routine 04/13/2022 3 :26 PM BRAZING MACHINE OPERATOR documented in this encounter Results * Valproic acid (04/13/2022 3:26 PM BRAZING MACHINE OPERATOR) VALPROIC ACID LEVEL (EXTERNAL) 50 50 - 100 mcg/mL NON-INTERFACED (ONBASE SCANS) Blood 04/13/2022 3:26 PM BRAZING MACHINE OPERATOR Narrative YUKO PFT - 04/16/2022 1:02 PM BRAZING MACHINE OPERATOR Verified by Christine Barber on 04/16/2022. us Birgit Whipple MD LAB - BLOOD ORDERABLES E dited Result - Final FRANCISDenny PFT NON-INTERFACED (ONBASE SCANS) * (ABNORMAL) Phenobarbital level (04/13/2022 3:26 PM BRAZING MACHINE OPERATOR) PHENOBARBITAL LEVEL (EXTERNAL) 7.7(L) 15.0 - 40.0 ug/mL NON-INTERFACE D (ONBASE SCANS) Blood BLOOD SPECIMEN / Unknown 04/13/2022 3:26 PM BRAZING MACHINE OPERATOR Narrative BREEZE PFT - 04/16/2022 11:59 AM BRAZING MACHINE OPERATOR Verified by Christine Barber on 04/16/2022. us Birgit Whipple MD LAB - BLOOD ORDERABLES E dited Result - Final BREEZE PFT NON-INTERFACED (ONBASE SCANS) * Primidone level (04/13/2022 3:26 PM BRAZING MACHINE OPERATOR) PRIMIDONE LEVEL (EXTERNAL) 5.4 5.0 - 12.0 ug/mL NON-INTERFACED (ONBASE SCANS) Blood 04/13/2022 3:26 PM BRAZING MACHINE OPERATOR Narrative BREEZE PFT - 04/16/2022 11:59 AM BRAZING MACHINE OPERATOR Verified by Christine Barber on 04/16/2022. us Birgit Whipple MD LAB - BLOOD ORDERABLES E dited Result - Final BREEZE PFT NON-INTERFACED (ONBASE SCANS) * Valproic acid free (04/13/2022 3:26 PM BRAZING MACHINE OPERATOR) VALPROIC ACID FREE (EXTERNAL) 10 5 - 25 mcg/mL NON-INTERFACED (ONBASE SCANS) Blood 04/13/2022 3:26 PM BRAZING MACHINE OPERATOR Narrative BREEZE PFT - 04/16/2022 11:51 AM BRAZING MACHINE OPERATOR Verified by Christine Barber on 04/16/2022. 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, without mention of intractable epilepsy Tremor Abnormal involuntary movements documented in this encounter Additional Health Concerns Infection Onset Date Last Indicated Resolved Time Rule Out COVID-19 03/25/2024 03/25/2024 03/25/2024 2:35 PM BRAZING MACHINE OPERATOR documented as of this encounter Care Teams Youth Accommodation Support Worker Relationship Specialty Start Date End Date Chele Mena MD [facility] [address] [place] [address] PCP - General Internal Medicine 11/28/12 Birgit Whipple MD [facility] [address] [place] [address] Neurology 06/16/14 Dragan Ritter MD [facility] [address] [place] [address] Urology 06/10/17 Birgit Whipple MD [address] [place] [id number] Assigned Neuroscience Provider 04/03/20 documented as of this encounter
--- OUTSIDE RECORDS SUMMARY | 2024-08-15 02:24 | XMS_ITS | Clinical Summary ---
Author Organization [facility] Address [address] [place] [address] Care Team Providers Care Supervisor Dyer Name Role Phone Chele Mena MD Primary Care Provider Birgit Whipple MD Unavailable Dragan Ritter MD Unavailable [phone] Birgit Whipple MD Unavailable Allergies Active Allergy Reactions Criticality Noted Date Comments Bee Venom 06/19/2013 Lacosamide 11/28/2012 Delirium. Lacosamide Other (See Comments) 02/21/2016 Oxcarbazepine Rash Low 11/28/2012 Oxcarbazepine Rash Low 02/21/2016 Seasonal Allergies 06/19/2013 Medications metoprolol tartrate (LOPRESSOR) 25 MG tablet Take 25 mg by mouth 2 times daily. Active Multiple Vitamin (DAILY MULTIVITAMIN PO) Take 1 tablet by mouth daily. Active aspirin 81 MG tablet Take by mouth daily Active acetaminophen (TYLENOL) 500 MG tablet Take 1,000 mg by mouth every 6 hours as needed for pain. Active divalproex sodium extended-release (DEPAKOTE ER) 250 MG 24 hr tabletIndications: Localization-relat ed epilepsy (H) Take 3 tablets (750 mg) by mouth 2 times daily - Oral 540 tablet 3 04/23/19 24 Active atorvastatin (LIPITOR) 20 MG tablet Take 20 mg by mouth daily. Active benzonatate (TESSALON) 100 MG capsule Take 100 mg by mouth 3 times daily. Active apixaban ANTICOAGULANT (ELIQUIS) 5 MG tablet Take 5 mg by mouth 2 times daily. Active [place]-3 Fatty Acids (OMEGA-3 FISH OIL PO) Take 1 tablet by mouth daily. Active lactobacillus acidophilus and bulgaricus (FLORANEX) Take 1 tablet by mouth 3 times daily. With meals Active insulin glargine (LANTUS PEN) 100 UNIT/ML pen Inject 10 Units subcutaneously daily. Active potassium chloride ER (K-TAB) 20 MEQ CR tablet Take 20 mEq by mouth 2 times daily. Active sodium chloride 1 GM tablet Take 1 g by mouth 3 times daily. Active cholecalciferol (VITAMIN D3) 25 mcg (1000 units) capsule Take 1 capsule by mouth daily. Active torsemide (DEMADEX) 20 MG tabletIndications: Atrial fibrillation, unspecified type (H) Take 1 tablet (20 mg) by mouth daily. 03/27/19 25 Active digoxin (LANOXIN) 250 MCG tabletIndications: Atrial fibrillation, unspecified type (H) Take 0.5 tablets (125 mcg) by mouth daily. Hold if pulse is 55 or less 03/27/19 25 Active diltiazem ER (DILT-XR) 120 MG 24 hr capsuleIndications :Atrial fibrillation, unspecified type (H) Take 1 capsule (120 mg) by mouth daily. 03/27/19 25 Active Primidone 125 MG TABSIndications:Tr emor Take 125 mg by mouth daily. At noon 90 tablet 3 07/10/19 25 Active primidone (MYSOLINE) 250 MG tabletIndications: Tremor Take 1 tablet (250 mg) by mouth every morning. 90 tablet 3 07/10/19 25 Active pregabalin (LYRICA) 50 MG capsuleIndications :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 (H) Take 1 capsule (50 mg) by mouth daily (with lunch) AND 1 capsule (50 mg) every evening. 180 capsule 3 07/10/19 25 Active pregabalin (LYRICA) 100 MG capsuleIndications :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 (H) Take 1 capsule (100 mg) by mouth every morning. 90 capsule 3 07/10/19 Active Active Problems Problem Noted Date Diagnosed Date Pneumonia 03/25/2024 Morbid obesity 04/26/2022 Epilepsy 02/10/2014 Encounters Date Type Department Care Team Description 07/09/2024 10:30 AM CDT Office Visit [facility] [address], [address] [place] [phone] Birgit Whipple MD Focal (motor) epilepsy (H) (Primary Dx); Tremor; 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 (H) 07/09/2024 Travel 07/06/2024 Travel from Last 3 Months Immunizations Immunization Administration Dates Next Due Flu, Unspecified 01/25/2018 [id number] Novel Flu 11/17/2009 Hepatitis A (VAQTA)(ADULT 19+) 01/25/2021 Influenza (High Dose) Trival ent,PF (Fluzone) 11/14/2018,12/09/2017,11/09/2013 Influenza Vaccine 65+ (FLUAD) 11/22/2020 Influenza Vaccine, 6+MO IM (QUADRIVALENT W/PRESERVATIVES) 11/09/2015,12/09/2014,11/09/2013,2012 Pneumo Conj 13-V (2010&after) 04/07/2015 Pneumococcal 23 valent 10/23/2017,2013,09/08/2009,2009 TDAP (Adacel,Boostrix) 11/21/2012 Td (Adult), Adsorbed 12/05/2018 Typhoid IM 01/25/2021 Zoster recombinant adjuvante d (Shingrix) 11/13/2018 Zoster vaccine, live 12/09/2012 Social History [...] in an abandoned building, in an overnight chcf, or couch-surfing.) Yes 03/26/2024 Are you worried [...] Sex Assigned at Female 04/04/2021 11:57 AM HELMINTHOLOGY TEACHER Legal Sex Female 4:19 AM HELMINTHOLOGY TEACHER Gender Identity Female 04/04/2021 11:57 AM HELMINTHOLOGY TEACHER Sexual Orientation Not on file Last Filed Vital Signs Vital Sign Reading Time Taken Comments Blood Pressure 93/63 07/09/2024 10:22 AM CDT Pulse 56 07/09/2024 10:22 AM CDT Temperature 36.3 C (97.3 F) 07/09/2024 10:22 AM CDT Respiratory Rate 18 03/28/2024 7:27 AM HELMINTHOLOGY TEACHER Oxygen Saturation 96% 03/28/2024 7:27 AM HELMINTHOLOGY TEACHER Inhaled Oxygen Concentration - - Weight 121.1 kg (267 lb) 07/09/2024 10:22 AM CDT per patient Height 162.6 cm (5' 4) 07/09/2024 10:22 AM CDT Body Mass Index 45.83 07/09/2024 10:22 AM CDT Plan of Treatment Upcoming Encounters Date Type Department Care Team (Late st Contact Info) Description 07/13/2025 10:30 AM CDT Office Visit [facility] [address], [address] [place] [address] Birgit Whipple MD [address] [place] [address] Health Maintenance Due Date Last Done Comments ADVANCE CARE PLANNING 1945 ANNUAL REVIEW OF HM ORDERS 1945 DEXA 1945 HF ACTION PLAN 1945 LIPID 1945 TSH W/FREE T4 REFLEX 1945 HEPATITIS C SCREENING 09/01/1963 MEDICARE ANNUAL WELLNESS VISIT 2010 RSV VACCINE (1 - 1-dose 75+ series) 2020 COVID-19 VACCINE ( season) 2024 11/13/2023, 12/12/2022, 08/02/2022, Additional history exists BMP 09/24/2024 03/27/2024, 02/27, 03/25/2024, Additional history exists ALT 03/26/2025 03/26/2024, 02/26, 04/06/2020 CBC 05/01/2025 05/01/2024, 02/0 08/2024, 03/27/2024, Additional history exists DIGOXIN 05/18/2025 05/18/2024, 02/27, 03/25/2024, Additional history exists FALL RISK ASSESSMENT 07/09/2025 07/09/2024, 05/23/2023, 04/11/2021, Additional history exists DIABETES SCREENING 05/19/2027 05/18/2024, 0 05/01/2024, 04/03/2024, Additional history exists DTAP/TDAP/TD VACCINE (3 - Td or Tdap) 12/05/2028 12/05/2018, 11/21/2012, 11/21/2012 COLONOSCOPY Discontinued 09/05/2007 COLORECTAL CANCER SCREENING Discontinued MAMMO SCREENING Discontinued 06/10/2017 (Not Needed) PNEUMOCOCCAL VACCINE 50+ YEARS Completed 10/23/2017, 04/07/2015, 12/01/2013, Additional history exists ZOSTER VACCINE Completed 11/13/2018, 07/26, 10/23/2017, Additional history exists INFLUENZA VACCINE Completed 11/13/2023, , 11/25/2021, Additional history exists PHQ-2 (once per calendar year) Completed 07/09/2024, 05/23/2023, 04/26/2022, Additional history exists CT COLONOGRAPHY Discontinued FIT Discontinued FLEX SIG Discontinued HPV VACCINE Aged Out No longer eligi ble based on patient's age to complete this topic MENINGITIS VACCINE Aged Out No longer eligible based on patient's age to complete this topic sDNA (Cologuard) Discontinued Procedures Procedure Name Priority Date/Time Associated Diagnosis Comments VALPROIC ACID FREE AND TOTAL Routine 07/09/2024 11:28 AM CDT Focal (motor) epilepsy (H) BASIC METABOLIC PANEL (OUTREACH) Routine 05/18/2024 10:17 AM CDT Hypertensive heart disease with heart failure (H) Chronic atrial fibrillation, unspecified (H) TRIP CHARGE - LAB ONLY Routine 05/18/2024 10:17 AM CDT Hypertensive heart disease with heart failure (H) Chronic atrial fibrillation, unspecified (H) BASIC METABOLIC PANEL NO GLUCOSE (OUTREACH) Routine 05/18/2024 10:17 AM CDT Hypertensive heart disease with heart failure (H) Chronic atrial fibrillation, unspecified (H) GLUCOSE (OUTREACH) Routine 05/18/2024 10 :17 AM CDT Hypertensive heart disease with heart failure (H) Chronic atrial fibrillation, unspecified (H) DIGOXIN LEVEL Routine 05/18/2024 10:17 AM CDT Hypertensive heart disease with heart failure (H) Chronic atrial fibrillation, unspecified (H) CBC WITH PLATELETS Routine 05/01/2024 6: 03 AM HELMINTHOLOGY TEACHER Anemia, unspecified Essential (primary) hypertension BASIC METABOLIC PANEL Routine 03/27/2024 7:12 AM HELMINTHOLOGY TEACHER COMPREHENSIVE METABOLIC PANEL Routine 03/26/2024 6:26 AM HELMINTHOLOGY TEACHER COLONOSCOPY Routine 09/05/2007 9:35 AM CDT from Last 3 Months or Most Recently Relevant to Health Maintenance Results * (ABNORMAL) Valproic Acid Free & Total (07/09/2024 11:28 AM CDT) [facility] Valproic Acid Free 19 7 - 23 ug/mL 07/13/2024 10:43 AM CDT [facility] Valproic Acid Total 76 50 - 125 ug/mL 07/13/2024 10:43 AM CDT [facility] Valproic Acid, Percent Free 25(H) 5 - 18 % 07/13/2024 10:43 AM CDT [facility] Comment: The result is physiologically unusual. [...] include headache, somnolence and dizziness. Performed By: [facility] [employer] [address] [place] [id number] Health Care Analyst: Zeeshan Richard MD, PhD CLIA Number: [id number] Blood STRUCTURE OF LEFT HAND / Unknown Venipuncture / Unknown 07/09/2024 11:28 AM CDT 07/09/2024 2:03 PM CDT us Birgit Whipple MD LAB - BLOOD ORDERABLES F inal Result [facility] [address] [place] [address], [facility] [phone] * Trip Charge - LAB ONLY (05/18/2024 10:17 AM CDT) Other TOPOGRAPHY UNKNOWN / Unknown Billing only / Unknown 05/18/2024 10:17 AM CDT 05/18/2024 12:28 PM CDT us Britt Alba LAB CHARGE PERFORMABLES Final Re sult [facility] [address] [place] [address] * (ABNORMAL) Basic Metabolic Panel No Glucose (OUTREACH) (05/18/2024 10:17 AM CDT) Sodium 138 135 - 145 mmol/L 05/18/2024 2:55 PM CDT [facility] Potassium 4.4 3.4 - 5.3 mmol/L 05/18/2024 2:55 PM CDT [facility] Chloride 99 98 - 107 mmol/L 05/18/2024 2:55 PM CDT [facility] Carbon Dioxide (CO2) 20(L) 22 - 29 mmol/L 05/18/2024 2:55 PM CDT [facility] Anion Gap 19(H) 7 - 15 mmol/L 05/18/2024 2:55 PM CDT [facility] Urea Nitrogen 19.9 8.0 - 23.0 mg/dL 05/18/2024 2:55 PM CDT [facility] Creatinine 0.66 0.51 - 0.95 mg/dL 05/18/2024 2:55 PM CDT [facility] GFR Estimate 89 >60 mL/min/1.7 3m2 05/18/2024 2:55 PM CDT [facility] Calcium 9.6 8.8 - 10.4 mg/dL 05/18/2024 2:55 PM CDT [facility] Blood STRUCTURE OF RIGHT UPPER LIMB / Unknown Venipuncture / Unknown 05/18/2024 10:17 AM CDT 05/18/2024 12:28 PM CDT Britt Alba LAB - BLOOD ORDERABLES Final Res ult LABORATORY [facility] [address] [facility], [address] [place] [address] * (ABNORMAL) Glucose (OUTREACH) (05/18/2024 10:17 AM CDT) Glucose 327(H) 70 - 99 mg/dL 05/18/2024 4:16 PM CDT [facility] Blood STRUCTURE OF RIGHT UPPER LIMB / Unknown Venipuncture / Unknown 05/18/2024 10:17 AM CDT 05/18/2024 12:28 PM CDT Britt Alba LAB - BLOOD ORDERABLES Final Res ult Performing Organization Address City/[facility]/ZIP Co de Phone Number LABORATORY [facility] [address] [facility], [address] [phone] * Digoxin level (05/18/2024 10:17 AM CDT) Digoxin 0.6 0.6 - 1.2 ng/mL 05/18/2024 3:19 PM CDT [facility] Comment: Therapeutic Range: Adults: 0.6-1.2 ng/mL The reference range for infants (less than 3 mo) is thought to be 3.0-4.0 ng/mL; infants tolerate more digoxin because they have more binding sites and an increased metabolic rate. Blood STRUCTURE OF RIGHT UPPER LIMB / Unknown Venipuncture / Unknown 05/18/2024 10:17 AM CDT 05/18/2024 12:28 PM CDT Britt Alba LAB - BLOOD ORDERABLES Final Res ult LABORATORY [facility] [address] [facility], [address] [phone] * (ABNORMAL) CBC with platelets (05/01/2024 6:03 AM HELMINTHOLOGY TEACHER) WBC Count 8.2 4.0 - 11.0 10e3/uL 05/01/2024 9:48 AM HELMINTHOLOGY TEACHER [facility] RBC Count 4.35 3.80 - 5.20 10e6/uL 05/01/2024 9:48 AM HELMINTHOLOGY TEACHER [facility] Hemoglobin 14.0 11.7 - 15.7 g/dL 05/01/2024 9:48 AM HELMINTHOLOGY TEACHER [facility] Hematocrit 44.0 35.0 - 47.0 % 05/01/2024 9:48 AM HELMINTHOLOGY TEACHER [facility] MCV 101(H) 78 - 100 fL 05/01/2024 9:48 AM HELMINTHOLOGY TEACHER [facility] MCH 32.2 26.5 - 33.0 pg 05/01/2024 9:48 AM HELMINTHOLOGY TEACHER [facility] MCHC 31.8 31.5 - 36.5 g/dL 05/01/2024 9:48 AM HELMINTHOLOGY TEACHER [facility] RDW 14.8 10.0 - 15.0 % 05/01/2024 9:48 AM HELMINTHOLOGY TEACHER [facility] Platelet Count 175 150 - 450 10e3/uL 05/01/2024 9:48 AM HELMINTHOLOGY TEACHER [facility] Blood STRUCTURE OF RIGHT UPPER LIMB / Unknown Venipuncture / Unknown 05/01/2024 6:03 AM HELMINTHOLOGY TEACHER 05/01/2024 8:55 AM HELMINTHOLOGY TEACHER us Radha Hauser MD LAB - BLOOD ORDERABLES Final Result [facility] [address] [facility], [address] [place] [address] * (ABNORMAL) Basic metabolic panel (03/27/2024 7:12 AM HELMINTHOLOGY TEACHER) Pathologist [facility] Sodium 138 135 - 145 mmol/L 03/27/2024 7:35 AM HELMINTHOLOGY TEACHER [facility] Potassium 4.2 3.4 - 5.3 mmol/L 03/27/2024 7:35 AM HELMINTHOLOGY TEACHER [facility] Chloride 100 98 - 107 mmol/L 03/27/2024 7:35 AM HELMINTHOLOGY TEACHER [facility] Carbon Dioxide (CO2) 28 22 - 29 mmol/L 03/27/2024 7:35 AM [facility] Anion Gap 10 7 - 15 mmol/L 03/27/2024 7:35 AM [facility] Urea Nitrogen 14.8 8.0 - 23.0 mg/dL 03/27/2024 7:35 AM [facility] Creatinine 0.57 0.51 - 0.95 mg/dL 03/27/2024 7:35 AM [facility] GFR Estimate >90 >60 mL/min/1.7 3m2 03/27/2024 7:35 AM [facility] Comment:eGFR calculated usin 2020 CKD-EPI equation. Calcium 8.6(L) 8.8 - 10.4 mg/dL 03/27/2024 7:35 AM [facility] Glucose 135(H) 70 - 99 mg/dL 03/27/2024 7:35 AM [facility] Blood STRUCTURE OF RIGHT HAND / Unknown Venipuncture / Unknown 03/27/2024 7:12 AM HELMINTHOLOGY TEACHER 03/27/2024 7:16 AM [facility] us Jennifer Trujillo PA-C LAB - BLOOD ORDERABLES Fi nal Result LABORATORY [facility] [address] Lab (1st floor, no room number) [place] [address], [facility] * (ABNORMAL) Comprehensive metabolic panel (03/26/2024 6:26 AM HELMINTHOLOGY TEACHER) Sodium 136 135 - 145 mmol/L 03/26/2024 7:03 AM [facility] Potassium 4.7 3.4 - 5.3 mmol/L 03/26/2024 7:03 AM [facility] Carbon Dioxide (CO2) 26 22 - 29 mmol/L 03/26/2024 7:03 AM [facility] Anion Gap 12 7 - 15 mmol/L 03/26/2024 7:03 AM [facility] Urea Nitrogen 23.1(H) 8.0 - 23.0 mg/dL 03/26/2024 7:03 AM [facility] Creatinine 0.79 0.51 - 0.95 mg/dL 03/26/2024 7:03 AM [facility] GFR Estimate 76 >60 mL/min/1.7 3m2 03/26/2024 7:03 AM [facility] Comment:eGFR calculated usnv 2020 CKD-EPI equation. Calcium 8.7(L) 8.8 - 10.4 mg/dL 03/26/2024 7:03 AM [facility] Chloride 98 98 - 107 mmol/L 03/26/2024 7:03 AM [facility] Glucose 109(H) 70 - 99 mg/dL 03/26/2024 7:03 AM [facility] Alkaline Phosphatase 62 40 - 150 U/L 03/26/2024 7:03 AM [facility] AST 42 0 - 45 U/L 03/26/2024 7:03 AM [facility] ALT 20 0 - 50 U/L 03/26/2024 7:03 AM [facility] Protein Total 5.9(L) 6.4 - 8.3 g/dL 03/26/2024 7:03 AM [facility] Albumin 2.8(L) 3.5 - 5.2 g/dL 03/26/2024 7:03 AM [facility] Bilirubin Total 0.3 <=1.2 mg/dL 03/26/2024 7:03 AM [facility] Blood STRUCTURE OF RIGHT HAND / Unknown Venipuncture / Unknown 03/26/2024 6:26 AM HELMINTHOLOGY TEACHER 03/26/2024 6:43 AM [facility] us Al Kavin Salinas MD LAB - BLOOD ORDERABLES Fi nal Result LABORATORY [facility] [address] [facility], no room number) [place] [address], [facility] * COLONOSCOPY (09/05/2007 9:35 AM CDT) COLONOSCOPY [...] oxygen saturations were monitored continuously. The [id number] #[id number] was introduced through the anus and advanced [...] Health Maintenance Insurance MEDICARE [employer] MEDICARE [employer] Advance Directives For more information, please contact: [phone] * Full Code (Latest Code Status on File) Date Activated Date Inactivated Comments 03/25/2024 5:26 PM 03/28/2024 11:22 AM All basic an d advanced life-sustaining interventions are performed as appropriate Question Answer Comments Code status determined by: Discussion with patie nt/ legal decision maker Care Teams Supervisor Dyer Relationship Specialty Start Date End Date Chele Mena MD [facility] [address] [place] [address] PCP - General Internal Medicine 11/28/[address] [facility] [address] [place] [address] Neurology 06/16/[address] [facility] [address] [place] [address] Urology 06/10/17 Birgit Whipple MD [address] [place] [address] Assigned Neuroscience Provider 04/03/20
--- OUTSIDE RECORDS SUMMARY | 2024-08-15 02:24 | XMS_ITS | Encounter Summary ---
Author Organization [facility] Address [address] [place] [address] Care Team Providers Care Field Director Name Role Phone Chele Mena MD Primary Care Provider Birgit Whipple MD Unavailable [phone] SoDragan galeas MD Unavailable Birgit Whipple MD Unavailable [phone] Encounter Details Date Type Department Care Team (Latest Contact Info) Description 04/13/2022 External Order Results [facility] [address] [place] [address] Outside, Provider Diabetic polyneuropathy associated with diabetes [...] Sex Assigned at Female 04/04/2021 11:57 AM CERTIFIED MEDICAL AIDE Legal Sex Female 4:19 AM CERTIFIED MEDICAL AIDE Gender Identity Female 04/04/2021 11:57 AM CERTIFIED MEDICAL AIDE Sexual Orientation Not on file documented as of this encounter Plan of Treatment Upcoming Encounters Date Type Department Care Team (Late st Contact Info) Description 07/13/2025 10:30 AM CDT Office Visit [facility] [address], [address] [place] [address] Birgit Whipple MD [address] [place] [address] documented as of this encounter Procedures Procedure Name Priority Date/Time Associated Diagnosis Comments PREGABALIN LEVEL Routine 04/13/2022 3:26 PM CERTIFIED MEDICAL AIDE 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 (H) documented in this encounter Results * Pregabalin Level: Random (04/13/2022 3:26 PM CERTIFIED MEDICAL AIDE) PREGABALIN (EXTERNAL) 2.6 ug/mL NON-INTERFACED (ONBASE SCANS) Blood 04/13/2022 3:26 PM CERTIFIED MEDICAL AIDE Narrative [facility]ISON[facility] PFT - 04/19/2022 10:49 AM CERTIFIED MEDICAL AIDE Verified by Cheryl Soto on 04/19/2022. us Birgit Whipple MD LAB - BLOOD ORDERABLES E dited Result - Final YUKO PFT NON-INTERFACED (ONBASE SCANS) documented in this encounter Visit Diagnoses Diagnosis 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 (H) documented in this encounter Additional Health Concerns Infection Onset Date Last Indicated Resolved Time Rule Out COVID-19 03/25/2024 03/25/2024 03/25/2024 2:35 PM CERTIFIED MEDICAL AIDE documented as of this encounter Care Teams Field Director Relationship Specialty Start Date End Date Chele Mena MD [facility] [address] [place] [address] PCP - General Internal Medicine 11/28/12 Birgit Whipple MD [facility] [address] [place] [address] Neurology 06/16/14 Dragan Ritter MD [facility] [address] [place] [address] Urology 06/10/17 Birgit Whipple MD [address] [place] [id number] Assigned Neuroscience Provider 04/03/20 documented as of this encounter
--- OUTSIDE RECORDS SUMMARY | 2024-08-15 02:24 | XMS_ITS | CCD ---
Author Name Interface, [id number] lity Address [address] [place] [address] [address] [place] [address] [facility] Address [facility] [address] [address] Care Team Providers Care Garment Manufacturing Supervisor Name Role Phone Arin Stiles Unavailable Unavailab le Reason for Visit Encounters Medications Problems Social History
[2024-08-15 02:41] LABS: Appearance Urine Clear (Clear); Bilirubin Urine Negative (Negative); Blood Urine 1+ (Negative); Color Urine Yellow (Yellow); Glucose Urine 3+ (Negative); Ketones Urine 1+ (Negative); Leukocyte Esterase Urine Trace (Negative); Nitrite Urine Negative (Negative); Protein Urine Negative (Negative); Specific Gravity Urine 1.015 (1.000-1.030)
[2024-08-15 02:44] LABS: RBC Urine 0-2 (0-2); WBC Urine 0-2 (0-5)
--- NOTE | 2024-08-15 02:51 | CRLHL7_ITS ---
For Patients: As a result of the Century Cures Act, medical imaging exams and procedure reports are released immediately into your electronic medical record. You may view this report before your referring provider. If you have questions, please contact your health care provider. INDICATION: Abdominal distension, weakness, SOB. TECHNIQUE: CT chest, abdomen and pelvis acquired 98 cc Isovue 370 IV contrast. COMPARISON: None. FINDINGS: CHEST: Cardiovascular structures: Heart size is normal. Thoracic aorta and main pulmonary artery are normal in caliber. Atherosclerotic calcifications of the coronary arteries. Atherosclerotic calcifications of the aorta and branch vessels. Mediastinum and khalif: No mass or pathologic adenopathy. Lungs and pleura: Bilateral subsegmental atelectasis. No suspicious nodules, infiltrates, or effusions. Chest wall and axilla: No mass or adenopathy. Bilateral breast implants. The left implant appears smaller than the right with calcifications, likely sequelae of prior rupture. Bones: No acute or suspicious lesions. ABDOMEN AND PELVIS: Liver: Unremarkable. Gallbladder and bile ducts: Cholecystectomy. Pancreas: Unremarkable. Spleen: Unremarkable. Adrenal glands: Unremarkable. Kidneys: Cysts and subcentimeter hypodense lesions too small to characterize, possibly cysts. Possible prior left partial nephrectomy. No hydronephrosis or obstructive urolithiasis. GI tract: Small hiatal hernia. Normal caliber bowel. No secondary signs of appendicitis. Colonic diverticuli, but no definite acute diverticulitis. Vascular structures: Unremarkable. Lymph nodes: Unremarkable. Peritoneum/Retroperitoneum/Abdominal Wall: Unremarkable. No free air or significant free fluid. Pelvic Organs: Bladder is collapsed with catheter in place. Hysterectomy. Bones and superficial soft tissues: No acute or suspicious lesions. IMPRESSION: 1. No definite acute findings to explain the patient`s symptoms. 2. 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 Please note that all CT scans at this facility use dose modulation, iterative reconstruction, and/or weight-based dosing when appropriate to reduce radiation dose to as low as reasonably achievable. Dictated by Mitch Dang MD @ 08/15/2024 4:08:25 AM (Electronically Signed)
== END 2024-08-15 05:35 | disposition home or self-care (01) ==
PROVIDERS: Emergency Provider Family Medicine; PCP Internal Medicine
DX: R53.1 Weakness (principal); E66.9 Obesity, unspecified
CPT/HCPCS: 36415; 70450; 71046; 71260; 74177; 80053; 81001; 82803; 83605; 83880; 84145; 84484; 85025; 86140; 87086; 87631; 93005; 94761; 99284; 99285; Q9967

== ENCOUNTER 2024-08-15 20:03 | Inpatient (IN) | payer MEDICARE, OTHER, SELFPAY ==
[2024-08-15] VITALS (30 sets, daily range): BP systolic 108–140; BP diastolic 63–84; PULSE 102–121; RESP 14–24; TEMP 36.2–38.1; O2SAT 87–98; BMI 43.6
--- OUTSIDE RECORDS SUMMARY | 2024-08-15 20:06 | XMS_ITS | CCD ---
Author Name Interface, [id number] lity Address [address] [place] [address] [address] [place] [address] [facility] Address [facility] [address] [address] Care Team Providers Care Customer Success Specialist Name Role Phone Arin Stiles Unavailable Unavailab le Reason for Visit Encounters Medications Problems Social History
--- OUTSIDE RECORDS SUMMARY | 2024-08-15 20:06 | XMS_ITS ---
Author Name Interface, [id number] lity Address [address] [place] [address] [address] [address] Organization [facility] Address [facility] [address] [place] [address] Care Team Providers Care Cafeteria Supervisor Name Role Phone Arin Stiles Unavailab le [...] Release 3.0 tablet,de layed release (/EC) active Insulin Glargine-Lixisen atide Subcutaneous Pen 100 unit-33 mcg/mL sub-Q 0.15 ML as directed 16 units subq at betime 019 active 019 Miscellaneous Drug PO 1.0 TABLET(S) daily 019 active Nystatin Topical Powder Topical 1.0 GRAM BID 019 active 019 Lisinopril Oral PO 1.0 TABLET(S) daily 019 active Pregabalin Oral PO 1.0 CAPSULE(S ) TID 019 active Acetaminophen Oral PO 2.0 TABLET(S) as directed active Aspirin Oral PO 1.0 TABLET(S) daily active Primidone Oral PO 1.0 TABLET(S) daily active Simvastatin Oral PO 1.0 TABLET(S) daily active Metoprolol Oral (Tartrate) PO 50.0 MG BID active Problems Diagnosis Status Date of Diagnosi [...]
--- OUTSIDE RECORDS SUMMARY | 2024-08-15 20:06 | XMS_ITS ---
Author Name Interface, [id number] lity Address [address] [place] [address] [address] [address] Organization [facility] Address [facility]0 [facility] [address] [place] [address] Care Team Providers Care Field Sales Manager Name Role Phone Arin Stiles Unavailab le [...]
--- OUTSIDE RECORDS SUMMARY | 2024-08-15 20:06 | XMS_ITS | CCD ---
Author Name Interface, Q0Iusbdsy lity Address [address] [place] [address] [address] [place] [address] [facility] Address [facility] [address] [address] Care Team Providers Care Acid Regenerator Name Role Phone Arin Stiles Unavailable Unavailab le Reason for Visit Encounters Medications Problems Social History
--- NOTE | 2024-08-15 20:41 | ED.WEAKNESS ---
HPI - Weakness General Time Seen by Provider: 20:41 Date Seen: 08/15/24 Chief complaint: Weakness Stated complaint: A-Fib Time Seen by Provider: 08/15/24 20:32 Source: patient and RN notes reviewed Mode of arrival: ambulatory Limitations: no limitations History of Present Illness HPI Narrative: This 78-year-old female returns via EMS this evening with increasing weakness at home, was unable to actually stand to get to the bathroom. Her legs buckled. She has no pain anywhere, she has not been noted to have any fevers at home but does have a temperature 100.5? F here. She has been inside in the air conditioning, has not been exposed to the heat outside. She was in last night for this, had an extensive workup with labs, ended up with CT of her chest abdomen pelvis which showed no definitive acute findings to explain the patient's symptoms. 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 She also had a head CT with no acute abnormality appreciated. Family remarks that she has presented like this in the past with pneumonia. When she had the weakness episode and had her legs buckle, her had a pulse oximeter and put it on, her heart rate was reportedly in the 40s to 50s and oxygenation was 80%. Family notes that she has just been even more tired and sleepy today. Related Data Home Medications ?Medication ?Instructions ?Recorded ?Confirmed aspirin 81 mg tablet,delayed 81 mg PO DAILY 11/02/21 07/15/24 release cholecalciferol (vitamin D3) 25 25 mcg PO DAILY 11/02/21 07/15/24 mcg (1,000 unit) capsule multivitamin with minerals 1 tab PO DAILY 11/02/21 07/15/24 omega 7-xut-bvu-fish oil 100 1 cap PO DAILY 11/02/21 07/15/24 mg-160 mg-1,000 mg capsule (Fish Oil) pregabalin 50 mg capsule 50 mg PO .6 Pm, 10PM 11/02/21 07/15/24 divalproex 250 mg tablet,extended 750 mg PO BID 12/21/22 07/15/24 release 24 hr primidone 250 mg tablet 250 mg PO DAILY 12/21/22 07/15/24 pregabalin 100 mg capsule (Lyrica) 100 mg PO QDAY 06/02/24 07/15/24 primidone 125 mg tablet 125 mg PO QDAY 07/15/24 07/15/24 Previous Rx's ?Medication ?Instructions ?Recorded Lactobacillus acidophilus 0.5 mg 100 mmu cells PO TIDWM #30 tabs 03/12/24 (100 million cell) tablet acetaminophen 500 mg tablet 1,000 mg (2 x 500 mg) PO Q6H PRN 03/12/24 #120 tabs insulin glargine 100 unit/mL (3 10 unit (0.1 mL) subcut HS #3 mL 03/12/24 mL) subcutaneous pen (Lantus Solostar U-100 Insulin) blood sugar diagnostic (Accu-Chek #100 ea 06/16/24 Guide test strips) lancets (Accu-Chek Softclix #100 ea 06/16/24 Lancets) atorvastatin 20 mg tablet 20 mg PO QHS #90 tabs 06/23/24 digoxin 250 mcg (0.25 mg) tablet 250 mcg PO DAILY #90 tabs 06/23/24 potassium chloride 20 mEq 20 meq PO BID #60 tabs 06/23/24 tablet,extended release torsemide 20 mg tablet 20 mg PO DAILY@0800 #90 tabs 06/23/24 diltiazem HCl 240 mg 240 mg PO DAILY #90 caps 06/29/24 capsule,extended release 24 hr empagliflozin 10 mg tablet 10 mg PO QDAY #90 tabs 06/29/24 (Jardiance) pen needle, diabetic 31 gauge x #100 ea 06/29/2405/10 metoprolol tartrate 25 mg tablet 25 mg PO BID #60 tabs 07/08/24 apixaban 5 mg tablet (Eliquis) 5 mg PO BID #180 tabs 07/27/24 Allergies Allergy/AdvReac Type Severity Reaction Status Date / Time oxcarbazepine Allergy Severe Rash Verified 08/15/24 03:52 lacosamide Allergy Intermediate hallucinati Verified 08/15/24 03:52 ons Bee venom Allergy Unknown Uncoded 08/15/24 03:52 Review of Systems Status of ROS: Reports: 6 or more systems reviewed and unremarkable except as noted in History and below [facility] Medical History (Updated 08/16/24 @ 01:32 by Guillermo Regalado MD) Obstructive sleep apnea ?G47.33 - Obstructive sleep apnea (adult) (pediatric) (ICD-10) Diabetes mellitus ?E11.9 - Type 2 diabetes mellitus without complications (ICD-10) Abnormal LFTs ?R79.89 - Other specified abnormal findings of blood chemistry (ICD-10) 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 (ICD-10) Discharge planning issues ?Z75.8 - Other problems related to medical facilities and other health care (ICD-10) Tremor ?R25.1 - Tremor, unspecified (ICD-10) Atrial fibrillation ?I48.91 - Unspecified atrial fibrillation (ICD-10) Gastroesophageal reflux disease (11/21/12) ?K21.9 - Gastro-esophageal reflux disease without esophagitis (ICD-10) Morbid obesity ?E66.01 - Morbid (severe) obesity due to excess calories (ICD-10) Hyperlipidemia (11/21/12) ?E78.5 - Hyperlipidemia, unspecified (ICD-10) Transaminitis ?R74.01 - Elevation of levels of liver transaminase levels (ICD-10) Breast cancer ?C50.919 - Malignant neoplasm of unspecified site of unspecified female breast (ICD-10) History of malignant neoplasm of breast ?Z85.3 - Personal history of malignant neoplasm of breast (ICD-10) History of ischemic colitis (2017) ?Z87.19 - Personal history of other diseases of the digestive system (ICD-10) Encounter for screening for COVID-19 ?Z11.52 - Encounter for screening for COVID-19 (ICD-10) Surgical History Status post total right knee replacement ?Z96.651 - Presence of right artificial knee joint (ICD-10) Status post total knee replacement ?Z96.659 - Presence of unspecified artificial knee joint (ICD-10) History of bilateral mastectomy ?Z90.13 - Acquired absence of bilateral breasts and nipples (ICD-10) Social History (Updated 08/16/24 @ 01:12 by Guillermo Regalado MD) Narrative: Patient has had progressive disability as outlined above. She has spent almost half of past 6 months in the penitentiary or in the hospital. The rest the time she has been getting home an outpatient therapy. Despite this she seems to be declining in her functional status. She is a nonsmoker. She does not drink alcohol. No recreational drug use. Code status is full. 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 What is your current living situation?: I presently have a place to live Problems where you live: no known problems Problems where you live details: n/a In the past 12 months, utilities in danger of being shut off: no In past 12 months, lack of transportation kept you from medical appts, meetings, work, or getting things needed for daily living: no In the past 12 mos, have been you worried that your food would run out before you had money to buy more?: never true In the past 12 mos, the food you bought just didn't last and you didn't have money to buy more?: never true Highest level of school completed/degree received: Bachelor's degree Smoking Status: Never smoker How often do you have a drink containing alcohol: never AUDIT-C Alcohol total score: 0 Non-prescribed substance use: denies use How often does anyone, including family, friends and others, physically hurt you: never How often does anyone, including family, friends and others, insult or talk down to you: never How often does anyone, including family, friends and others, threaten you with harm: never How often does anyone, including family, friends and others, scream or curse at you: never service: No Exam Const: Vital Signs, click to edit/add: Vital Signs - 24 hr 08/15/24 20:09 08/15/24 20:22 08/15/24 20:30 Temperature 100.5 F H Pulse Rate 105 H 108 H Pulse Rate [Pulse Oximeter] 108 H Respiratory Rate 16 17 23 Blood Pressure Blood Pressure [Ri ght Upper Arm] 108/76 Pulse Oximetry 96 95 97 Oxygen Delivery Me thod Nasal Cannula Oxygen Flow Rate 2 08/15/24 20:45 08/15/24 20:55 08/15/24 21:00 Temperature Pulse Rate 117 H 102 H Pulse Rate [Pulse Oximeter] Respiratory Rate 21 24 Blood Pressure Blood Pressure [Ri ght Upper Arm] Pulse Oximetry 97 93 96 Oxygen Delivery Me thod Oxygen Flow Rate 08/15/24 21:15 08/15/24 21:30 08/15/24 21:31 Temperature Pulse Rate 110 H 110 H 110 H Pulse Rate [Pulse Oximeter] Respiratory Rate 19 23 22 Blood Pressure 114/69 116/65 Blood Pressure [Ri ght Upper Arm] Pulse Oximetry 98 93 93 Oxygen Delivery Me thod Oxygen Flow Rate 08/15/24 21:32 08/15/24 21:45 08/15/24 21:46 Temperature Pulse Rate 108 H 114 H 105 H Pulse Rate [Pulse Oximeter] Respiratory Rate 14 22 23 Blood Pressure 131/76 Blood Pressure [Ri ght Upper Arm] Pulse Oximetry 92 92 91 Oxygen Delivery Me thod Oxygen Flow Rate 08/15/24 22:00 08/15/24 22:01 08/15/24 22:15 Temperature Pulse Rate 115 H 106 H 106 H Pulse Rate [Pulse Oximeter] Respiratory Rate 23 21 22 Blood Pressure 123/84 Blood Pressure [Ri ght Upper Arm] Pulse Oximetry 90 90 91 Oxygen Delivery Me thod Oxygen Flow Rate 08/15/24 22:16 08/15/24 22:30 08/15/24 22:31 Temperature Pulse Rate 115 H 105 H 121 H Pulse Rate [Pulse Oximeter] Respiratory Rate 22 21 22 Blood Pressure 124/66 133/72 Blood Pressure [Ri ght Upper Arm] Pulse Oximetry 90 92 91 Oxygen Delivery Me thod Oxygen Flow Rate 08/15/24 22:45 08/15/24 22:46 08/15/24 22:47 Temperature Pulse Rate 110 H 109 H 109 H Pulse Rate [Pulse Oximeter] Respiratory Rate 24 22 21 Blood Pressure 140/63 H Blood Pressure [Ri ght Upper Arm] Pulse Oximetry 93 91 91 Oxygen Delivery Me thod Oxygen Flow Rate 08/15/24 22:53 08/15/24 23:00 08/15/24 23:01 Temperature 97.2 F L Pulse Rate 116 H 112 H Pulse Rate [Pulse Oximeter] Respiratory Rate 23 14 Blood Pressure 118/69 Blood Pressure [Ri ght Upper Arm] Pulse Oximetry 91 87 L Oxygen Delivery Me thod Oxygen Flow Rate 08/15/24 23:15 08/15/24 23:16 08/15/24 23:30 Temperature Pulse Rate 110 H 108 H 108 H Pulse Rate [Pulse Oximeter] Respiratory Rate 22 21 21 Blood Pressure 114/78 Blood Pressure [Ri ght Upper Arm] Pulse Oximetry 91 92 93 Oxygen Delivery Me thod Oxygen Flow Rate 08/15/24 23:31 08/15/24 23:45 08/15/24 23:46 Temperature Pulse Rate 114 H 102 H 107 H Pulse Rate [Pulse Oximeter] Respiratory Rate 21 24 19 Blood Pressure 116/67 124/80 Blood Pressure [Ri ght Upper Arm] Pulse Oximetry 92 92 94 Oxygen Delivery Me thod Oxygen Flow Rate 08/16/24 00:00 08/16/24 00:01 08/16/24 00:01 Temperature Pulse Rate 108 H 106 H 106 H Pulse Rate [Pulse Oximeter] Respiratory Rate 24 24 24 Blood Pressure 131/70 131/70 Blood Pressure [Ri ght Upper Arm] Pulse Oximetry 93 92 92 Oxygen Delivery Me thod Oxygen Flow Rate 08/16/24 00:01 08/16/24 00:15 08/16/24 00:16 Temperature Pulse Rate 106 H 107 H 104 H Pulse Rate [Pulse Oximeter] Respiratory Rate 24 23 24 Blood Pressure 131/70 128/74 Blood Pressure [Ri ght Upper Arm] Pulse Oximetry 92 93 93 Oxygen Delivery Me thod Oxygen Flow Rate This 78-year-old female is resting comfortably in her bed, awakens easily to voice. She is pleasant. Answering in more short phrases, is not very conversive. She has symmetrical facial function, sclera clear, conjugate gaze. Neck is thick but note no adenopathy. She cannot sit up, lungs along the axilla and anteriorly are clear, no tachypnea, no wheezing. CV is fast sometimes irregular, sometimes sounds regular. She is known to have atrial fibrillation. Here no significant murmur at this time, normal S1-S2. Abdomen is obese but soft, nontender, nondistended, no organomegaly, no rebound or guarding. Lower extremities definitely with increased adiposity and thickened but note no erythema, no vascular changes, certainly no evidence of any cellulitis. Documenting provider has reviewed patient's vital signs: yes Course Course ED Course: This 78-year-old female is coming back with increasing weakness and fever now, highly suspect infectious etiology we just need to find it. Will do blood cultures, redo much of our lab workup from yesterday including the triple viral swab. Will look at portable chest x-ray. We need to consider sepsis and infectious etiology in this patient. Her proBNP was elevated last night though so judicious IV fluids will need to be employed. Will look at labs, see where her lactate is, follow her closely. Family does understand that patient really is unlikely to discharge to home given the current situation. We unfortunately have hospital staffing issues, unclear at this time whether not patient will be able to stay here or we might need to look for transfer for hospitalization. Consultations Consultation #1: Dr. Regalado is here, will see patient. Due to the volume and acuity of patients here, he will be taking over care. Decision has not been made for antibiotics. I do feel that this patient's proBNP is elevating, likely has some congestive heart failure but also wonder about early worsening UTI. We did discuss briefly whether not to redo any CT imaging, would be less than 24 hours. I favor treating worth Rocephin for potential UTI as chest x-ray really is not definitive for infection but rather looks more like congestive heart failure in my opinion. Will defer to Dr. Regalado. 11:12 p.m.: Dr. Reeves has checked back. He believes that she is overmedicated on her neurologic medicines, probable UTI as well. Will give 2 g IV Rocephin, did review that I had checked a digoxin level, this has subsequently come back normal. He will accept her. Time: 22:41 Vital Signs Vital signs: Initial Vital Signs Temperature 100.5 F H 08/15/24 20:09 Temperature Source Temporal Artery Scan 08/15/24 20:09 Pulse Rate 108 H 08/15/24 20:09 Respiratory Rate 16 08/15/24 20:09 Blood Pressure 108/76 08/15/24 20:09 Blood Pressure Mean 86 08/15/24 20:09 Blood Pressure Position Semi-Fowlers 08/15/24 20:09 Pulse Oximetry 96 08/15/24 20:09 Oxygen Delivery Method Nasal Cannula 08/15/24 20:09 Oxygen Flow Rate 2 08/15/24 20:09 Vital Signs Temperature 100.5 F H 08/15/24 20:09 Pulse Rate 108 H 08/15/24 20:09 Respiratory Rate 16 08/15/24 20:09 Blood Pressure 108/76 08/15/24 20:09 Pulse Oximetry 96 08/15/24 20:09 Oxygen Delivery Method Nasal Cannula 08/15/24 20:09 Oxygen Flow Rate 2 08/15/24 20:09 Temperature 98.6 F 08/16/24 01:07 Pulse Rate 105 H 08/16/24 01:07 Respiratory Rate 20 08/16/24 01:07 Blood Pressure 142/77 H 08/16/24 01:07 Pulse Oximetry 94 08/16/24 01:07 Oxygen Delivery Method Room Air 08/16/24 01:07 Oxygen Flow Rate 2 08/15/24 20:09 Medications Administered Medications: Generic Name Dose Route Start Last Admin Trade Name Abhilash PRN Reason Stop Dose Admin Atorvastatin Calcium 20 mg 08/16/24 00:39 08/16/24 02:05 Atorvastatin Calcium 10 Mg Tablet PO 20 mg BEDTIME HILDA Administration Divalproex Sodium 750 mg 08/16/24 00:39 08/16/24 02:04 Divalproex Sodium Er Tab 250 Mg PO 750 mg BID HILDA Administration Insulin Glargine 10 unit 08/16/24 00:39 08/16/24 02:09 Insulin Glargine,Hum.Rec.Anlog 100 Unit/Ml Insuln.Pen SUBCUT 10 unit HS HILDA Administration Pregabalin 50 mg 08/16/24 01:30 08/16/24 02:05 Pregabalin 50 Mg Capsule PO 50 mg 1800,2200 HILDA Administration Discontinued Medications Generic Name Dose Route Start Last Admin Trade Name Abhilash PRN Reason Stop Dose Admin Sodium Chloride 250 mls @ 250 mls/hr 08/15/24 21:52 08/15/24 21:55 0.9 % Sodium Chloride 250 Ml IV 08/15/24 22:51 Infused .Q1H ONE Infusion Sodium Chloride 250 mls @ 250 mls/hr 08/15/24 21:52 08/15/24 23:54 0.9 % Sodium Chloride 250 Ml IV 08/15/24 22:51 Infused .Q1H ONE Infusion Ceftriaxone Sodium 2 gm/ 100 mls @ 200 mls/hr 08/15/24 23:11 08/15/24 23:53 Sodium Chloride IVPB 08/15/24 23:12 200 mls/hr ONCE ONE Administration MDM - Weakness Lab Data Attestation: I reviewed the patient's lab results. Labs: Lab Results 08/15/24 08/15/24 08/15/24 Range/Units 20:52 20:55 20:56 WBC 6.38 (4.50-11.00) K/uL RBC 4.87 (4.00-5.20) m/uL Hgb 14.6 (12.0-16.0) gm/dL Hct 45.0 (33.0-51.0) % MCV 92 (80-100) fL MCH 30 (26-34) pg MCHC 32 (32-36) gm/dL RDW Coeff of Valerie 15.6 H (11.5-15.5) % Plt Count 127 L (140-440) K/uL Neut % (Auto) 63.3 (42.0-72.0) % Lymph % (Auto) 23.8 (20-44) % [place] % (Auto) 11.4 H (0.0-11.0) % Eos % (Auto) 0.6 (0.0-7.0) % Baso % (Auto) 0.3 (0.0-3.0) % Neut # (Auto) 4.03 (1.7-7.0) K/uL Lymph # (Auto) 1.52 (0.90-2.90) K/uL [place] # (Auto) 0.70 (0.00-0.90) K/UL Eos # (Auto) 0.04 (0.00-0.50) K/uL Baso # (Auto) 0.02 (0.00-0.30) K/uL Abs Immat Gran (auto) 0.04 (0.00-0.30) K/uL Imm/Tot Granulo (auto) 0.6 % VBG pH 7.425 (7.32-7.43) VBG pCO2 44 (40-50) mmHG VBG pO2 42.2 (25-47) mmHG VBG HCO3 29 H (21-28) mmol/L Sodium 141 (135-149) mmol/L Potassium 3.9 (3.6-5.1) mmol/L Chloride 103 (96-114) mmol/L Carbon Dioxide 27 (20-32) mmol/L Anion Gap 11 (7-15) mEq/L BUN 23 (7-30) mg/dL Creatinine 0.7 (0.5-1.5) mg/dL Estimated Creat Clear 43.40 Estimated GFR 88 ml/min Glucose 145 H (60-115) mg/dL Lactate 2.3 H (0.5-1.9) mmol/L Calcium 9.2 (8.4-10.6) mg/dL Total Bilirubin 0.8 (0.1-1.5) mg/dL AST 69 H (12-35) U/L ALT 45 H (4-35) U/L Alkaline Phosphatase 133 (40-150) U/L Troponin I < 0.01 (0.01-0.04) ng/mL C-Reactive Protein 12.9 H (0.5-1.0) mg/dL NT-Pro-B Natriuret Pep 2860 H (See Note) pg/mL Total Protein 7.9 (6.0-8.3) g/dL Albumin 3.8 (3.3-5.0) g/dL Procalcitonin 0.30 (<0.50) ng/mL Urine Color Dark yellow (Yellow) Urine Appearance Clear (Clear) Urine pH 6.0 (5.0-8.5) Ur Specific [place] 1.010 (1.000-1.030) Urine Protein Negative (Negative) Urine Glucose (UA) 2+ A (Negative) Urine Ketones 1+ A (Negative) Urine Blood Trace-intact A (Negative) Urine Nitrite Negative (Negative) Urine Bilirubin Negative (Negative) Urine Urobilinogen 0.2 (0.2-1.0) Ur Leukocyte Esterase Negative (Negative) Urine RBC 0-2 (0-2) Urine WBC 10-25 A (0-5) Ur Squamous Epith Cells None (None-Few) Urine Bacteria None (None) Digoxin 0.9 (0.8-2.0) ng/mL SARS-CoV-2 (PCR) Negative SARS-CoV-2 (Negative) Influenza Type A (PCR) Negative PCR FLU A (Negative) Influenza Type B (PCR) Negative PCR FLU B (Negative) RSV (PCR) Negative PCR RSV (Negative) Imaging Data Chest x-ray: Attestation: I have reviewed the pertinent imaging results. Radiologist's impression: Patient: SHASHI ARMSTRONG Facility:?[facility] Patient ID:?[id number] Site Patient ID:?[id number]. Site :?[id number] Study:?XRay-Chest PCXR-08/15/2024 10:15:28 PM Ordering Physician:Amairani Garces Final Report: INDICATION: Weakness and fever TECHNIQUE: Chest 1 views. COMPARISON: Chest radiograph on August 15, 2024 at 2:[address] chest, abdomen and pelvis on August 15, 2024. FINDINGS: Cardiovasculature and mediastinum: Cardiomegaly, stable. Stable mediastinal contours. Lungs and pleural spaces: Similar appearance of the lungs with mild bilateral diffuse interstitial prominence. No new lung abnormality. No sign of infiltrate or mass. No sign of pleural effusion. No pneumothorax. Bones and soft tissues: No significant findings. IMPRESSION: Compared to same day chest radiograph, similar appearance of the lungs with mild bilateral diffuse interstitial prominence which may reflect pulmonary edema and/or atypical infection. No new lung abnormality. Dictated by Tim Chen MD @ 08/15/2024 10:36:27 PM (Electronic Signature) ECG Data Attestation: I personally reviewed and interpreted this ECG as follows: (Atrial fibrillation with rapid ventricular response, 105 beats per minute. Q-waves inferior leads 3 and AVF without any active ST segment or T-wave changes.) ECG interpretation date: 08/15/24 ECG interpretation time: 21:25 Prior ECG tracings: available for review (No significant change from EKGs earlier today.) Discharge Plan Discharge Clinical Impression: Weakness, Physical debility, Acute UTI, Fever Patient Disposition: Admitted As Observation
[2024-08-15] MEDS: 0.9 % SODIUM CHLORIDE 250 ml 250 ML IV ×2 (20:55→21:50)
[2024-08-15 21:10] LABS: HCO3 VBG 29 mmol/L (21-28); Lactate* 2.3 mmol/L (0.5-1.9); PCO2 VBG 44 mmHG (40-50); PO2 VBG 42.2 mmHG (25-47); pH VBG 7.425 (7.32-7.43)
[2024-08-15 21:11] LABS: Basophils Absolute Auto 0.02 K/uL (0.00-0.30); Basophils Percent Auto 0.3 % (0.0-3.0); Eosinophils Absolute Auto 0.04 K/uL (0.00-0.50); Eosinophils Percent Auto 0.6 % (0.0-7.0); Hemoglobin* 14.6 gm/dL (12.0-16.0); Immature Granulocytes Abs Auto 0.04 K/uL (0.00-0.30); Immature Granulocytes Pct Auto 0.6 %; Lymphocytes Absolute Auto 1.52 K/uL (0.90-2.90); Lymphocytes Percent Auto 23.8 % (20-44); Mean Corpuscular HGB Conc 32 gm/dL (32-36); Mean Corpuscular Hemoglobin 30 pg (26-34); Mean Corpuscular Volume 92 fL (80-100); Monocytes Percent Auto 11.4 % (0.0-11.0); Neutrophils Absolute Auto 4.03 K/uL (1.7-7.0); Neutrophils Percent Auto 63.3 % (42.0-72.0); Platelet Count* 127 K/uL (140-440); RDW Coefficient of Variation % 15.6 % (11.5-15.5); Red Blood Count 4.87 m/uL (4.00-5.20); White Blood Count* 6.38 K/uL (4.50-11.00)
--- OUTSIDE RECORDS SUMMARY | 2024-08-15 21:15 | XMS_ITS | CCD ---
Author Name Interface, [id number] lity Address [address] [place] [address] [address] [place] [address] [facility] Address [facility] [address] [address] Care Team Providers Care Tennis Director Name Role Phone Arin Stiles Unavailable Unavailab le Reason for Visit Encounters Medications Problems Social History
--- OUTSIDE RECORDS SUMMARY | 2024-08-15 21:16 | XMS_ITS | CCD ---
Author Name Interface, [id number] lity Address [address] [place] [address] [address] [place] [address] [facility] Address [facility] [address] [address] Care Team Providers Care Can Crimper Name Role Phone Arin Stiles Unavailable Unavailab le Reason for Visit Encounters Medications Problems Social History
--- OUTSIDE RECORDS SUMMARY | 2024-08-15 21:16 | XMS_ITS ---
Author Name Interface, [id number] lity Address [address] [place] [address] [address] [address] Organization [facility] Address [facility] [address] [place] [address] Care Team Providers Care Preforming Machine Operator Name Role Phone Arin Stiles Unavailab le [...]
--- OUTSIDE RECORDS SUMMARY | 2024-08-15 21:16 | XMS_ITS ---
Author Name Interface, [id number] lity Address [address] [place] [address] [address] [address] Organization [facility] Address [facility]0 [facility] [address] [place] [address] Care Team Providers Care Wood Window And Door Craftsman Name Role Phone Arin Stiles Unavailab le [...]
--- NOTE | 2024-08-15 21:20 | CRLHL7_ITS ---
For Patients: As a result of the Cures Act, medical imaging exams and procedure reports are released immediately into your electronic medical record. You may view this report before your referring provider. If you have questions, please contact your health care provider. INDICATION: Weakness and fever TECHNIQUE: Chest 1 views. COMPARISON: Chest radiograph on August 15, 2024 at 2:[address] chest, abdomen and pelvis on August 15, 2024. FINDINGS: Cardiovasculature and mediastinum: Cardiomegaly, stable. Stable mediastinal contours. Lungs and pleural spaces: Similar appearance of the lungs with mild bilateral diffuse interstitial prominence. No new lung abnormality. No sign of infiltrate or mass. No sign of pleural effusion. No pneumothorax. Bones and soft tissues: No significant findings. IMPRESSION: Compared to same day chest radiograph, similar appearance of the lungs with mild bilateral diffuse interstitial prominence which may reflect pulmonary edema and/or atypical infection. No new lung abnormality. Dictated by Tim Chen MD @ 08/15/2024 10:36:27 PM (Electronically Signed)
[2024-08-15 21:25] LABS: Chloride* 103 mmol/L (96-114)
[2024-08-15 21:26] LABS: Albumin* 3.8 g/dL (3.3-5.0); Potassium* 3.9 mmol/L (3.6-5.1); Sodium* 141 mmol/L (135-149)
[2024-08-15 21:29] LABS: Alanine Aminotransferase* 45 U/L (4-35); Alkaline Phosphatase* 133 U/L (40-150); Anion Gap 11 mEq/L (7-15); Aspartate Amino Transferase* 69 U/L (12-35); Bilirubin Total* 0.8 mg/dL (0.1-1.5); Blood Urea Nitrogen* 23 mg/dL (7-30); Carbon Dioxide* 27 mmol/L (20-32); Creatinine* 0.7 mg/dL (0.5-1.5); Estimated Glomerular Filt Rate 88 ml/min; Slide Review Reflex No; Total Protein* 7.9 g/dL (6.0-8.3)
[2024-08-15 21:30] LABS: Calcium* 9.2 mg/dL (8.4-10.6); Glucose* 145 mg/dL (60-115)
[2024-08-15 21:34] LABS: Appearance Urine Clear (Clear); Bilirubin Urine Negative (Negative); Blood Urine Trace-intact (Negative); Color Urine Dark yellow (Yellow); Glucose Urine 2+ (Negative); Ketones Urine 1+ (Negative); Leukocyte Esterase Urine Negative (Negative); Nitrite Urine Negative (Negative); Protein Urine Negative (Negative); Urobilinogen Urine 0.2 (0.2-1.0)
[2024-08-15 21:49] LABS: PCR FLU A Negative PCR FLU A (Negative); PCR FLU B Negative PCR FLU B (Negative); PCR RSV Negative PCR RSV (Negative); SARS PCR* Negative SARS-CoV-2 (Negative)
[2024-08-15 21:54] LABS: C Reactive Protein* 12.9 mg/dL (0.5-1.0); NT Pro B Type NatriureticPept* 2860 pg/mL (See Note); Troponin I* < 0.01 ng/mL (0.01-0.04)
[2024-08-15 21:56] LABS: RBC Urine 0-2 (0-2)
[2024-08-15 22:50] LABS: Digoxin* 0.9 ng/mL (0.8-2.0)
[2024-08-15] MEDS: cefTRIAXone 2 GM in 0.9 % SODIUM CHLORIDE Mini-bag 100 ML IVPB (23:53)
[2024-08-16] VITALS (15 sets, daily range): BP systolic 92–142; BP diastolic 57–77; PULSE 96–164; RESP 16–24; TEMP 36.6–37.4; O2SAT 89–94
--- NOTE | 2024-08-16 00:52 | P.IMHP_ITS ---
Assessment and Plan Assessment and plan (1) Fever: Problem comment: Onset today. Probably due to UTI. Status: Acute (2) Acute UTI: Problem comment: Onset today. Ceftriaxone pending culture Status: Acute (3) Tremor: Problem comment: On primidone. Her profound sleepiness has developed sense primidone dose was increased. Hold primidone and resume at lower dose. Status: Acute (4) Metabolic encephalopathy: Problem comment: Combination of acute illness with fever and polypharmacy. Continue to review and reduce psychoactive medications. May need to consult her Neurologist. History of elevated ammonia thought secondary to Depakote. Check level. Neurologist found a normal Depakote level on blood testing 07/09/2024 according to Status: Acute (5) Physical debility: Problem comment: Profound physical disability due to deconditioning, sedation, acute illness, sedentary life. She will need to make significant progress to return to being able to walk with a walker and lives with her Status: Acute (6) Polypharmacy: Problem comment: Continue to review and deprescribed if possible Status: Acute (7) Weakness: Status: Acute (8) Seizure disorder: Problem comment: -Epilepsy controlled with Depakote and primidone for years and her last known seizure was many years ago Status: Acute (9) Atrial fibrillation: Problem comment: Eliquis for anticoagulation. Digoxin and metoprolol for rate control. I favor stopping diltiazem unless necessary for rate control. Status: Acute (10) Chronic anticoagulation: Problem comment: On Eliquis for AFib. Also on aspirin without history of [place], stent, stroke. Stop aspirin. Status: Acute (11) Abnormal LFTs: Problem comment: Suspect SILVA. Not clear that she has had workup for this. Status: Acute (12) Diabetes mellitus: Problem comment: reports this is been well controlled. Blood sugars typically in the low 100s. Elevated blood sugar today with onset of fever and illness. Status: Acute (13) Discharge planning issues: Problem comment: Patient is profoundly mentally and physically disabled. She appears far from being able to live independently with her . This is concerning given that she has spent approximately half of the last 6 months in correction or hospital. Engage therapy and nursing home social worker to evaluate and treat. Continue to discuss challenges with patient and family. Status: Acute (14) Obstructive sleep apnea: Problem comment: Home CPAP? Status: Acute Plan Patient is admitted to the hospital for ongoing evaluation monitoring of profound disability, metabolic encephalopathy, fever, urinary infection, hyp oxia. Total Time Spent Total Time Spent: Total time spent today is 100 minutes in reviewing outside records, coordination of care and discussing with patient's family and other providers ongoing management of her multiple medical problems and disabilities Hospitalist- H&P: NORMA History of Present Illness Date Seen: 08/15/24 Chief complaint: A-Fib Narrative: Kisha Gandara is a 78 year old female with seizure disorder, sleep apnea, history of pneumonia, heart failure, AFib, diabetes, breast cancer, progressive physical disability was admitted to the hospital for worsening mental status and physical disability at home. Recent history: 6 months ago patient was living independently with her but walking with a walker. She had was quite deconditioned but managing to stay independent with her 's help. She developed hypoxic respiratory failure and was hospitalized at [facility] the 2nd week of February 2024 with community-acquired pneumonia, heart failure and AFib with RVR. She was discharged to [facility] for rehabilitation. She was admitted to [facility] on March 25 to March 28 with hypotension thought secon xiomara to excessive medication, hyperkalemia and deconditioning. She was discharged back to [facility] with blood pressure medications reduced. She continued at [facility] for 2 more months until the beginning of May when she was discharged home with her . She was getting home OT and PT and eventually transition to outpatient OT and PT. she continued to be quite weak and deconditioned and required standby assistance when she would walk with a walker. On July 09 she saw her neurologist. At that visit it was noted that her tremors were quite a bit worse and becoming more disabling for her. Because of this her primidone was increased from 250 mg in the morning to 250 mg the morning and 125 mg at noon. In the 5 weeks since that time her family has noted that she has become more sleepy and weaker. She is having progressive problems with walking. Especially in the last week her family notes that she is hard to arouse and will only arouse for tender 15 seconds before falling asleep. She is no longer strong enough to stand and walk with a walker even with assistance. Early this morning she was seen in the emergency department where she underwent evaluation including head CT, chest abdomen and pelvis CT and laboratory evaluation. This was all unremarkable including a urinalysis. Later this morning her family noted that she had a low-grade fever and because of this she was brought back to the emergency department. She continues to appear weaker. In the emergency department this evening she was found to have a low-grade fever with a newly abnormal urinalysis tachycardia and hypoxia. Her mental status was markedly abnormal. She was profoundly weak. No other obvious change was identified. Specifically she had no focal neurologic problems, no respiratory symptoms and no new gastrointestinal symptoms. It was difficult to assess urinary symptoms as she is chronically incontinent. Patient is unable to give any history today. History is obtained from her daughter and her and the medical record. I was unable to confirm her medications with her entirely. He does manage her medications for her but there are differences between her [place] records and her [facility] clinic records. Specifically concerns about her digoxin dose, diltiazem dose, use of Jardiance. Review of Systems Narrative: Family notes progressive fatigue, sleepiness, difficulty with arousal, profound weakness, chronic urinary incontinence. She may have had a little bit of loose stools this week but no significant diarrhea or blood in her stool. Medical Decision Making Medical Decision Making Code Status: Fall Has patient completed a Health Care Directive: No During This Stay, Who Would You Like To Make Decisions For You In The Event You Are Unable To Make Them For Yourself?: [facility] Medical History (Updated 08/16/24 @ 01:32 by Guillermo Regalado MD) Obstructive sleep apnea ?G47.33 - Obstructive sleep apnea (adult) (pediatric) (ICD-10) Diabetes mellitus ?E11.9 - Type 2 diabetes mellitus without complications (ICD-10) Abnormal LFTs ?R79.89 - Other specified abnormal findings of blood chemistry (ICD-10) Chronic anticoagulation ?Z79.01 - terminal operations supervisor (current) use of anticoagulants (ICD-10) Discharge planning issues ?Z75.8 - Other problems related to medical facilities and other health care (ICD-10) Tremor ?R25.1 - Tremor, unspecified (ICD-10) Atrial fibrillation ?I48.91 - Unspecified atrial fibrillation (ICD-10) Gastroesophageal reflux disease (11/21/12) ?K21.9 - Gastro-esophageal reflux disease without esophagitis (ICD-10) Morbid obesity ?E66.01 - Morbid (severe) obesity due to excess calories (ICD-10) Hyperlipidemia (11/21/12) ?E78.5 - Hyperlipidemia, unspecified (ICD-10) Transaminitis ?R74.01 - Elevation of levels of liver transaminase levels (ICD-10) Breast cancer ?C50.919 - Malignant neoplasm of unspecified site of unspecified female breast (ICD-10) History of malignant neoplasm of breast ?Z85.3 - Personal history of malignant neoplasm of breast (ICD-10) History of ischemic colitis (2017) ?Z87.19 - Personal history of other diseases of the digestive system (ICD-10) Encounter for screening for COVID-19 ?Z11.52 - Encounter for screening for COVID-19 (ICD-10) Surgical History Status post total right knee replacement ?Z96.651 - Presence of right artificial knee joint (ICD-10) Status post total knee replacement ?Z96.659 - Presence of unspecified artificial knee joint (ICD-10) History of bilateral mastectomy ?Z90.13 - Acquired absence of bilateral breasts and nipples (ICD-10) Social History (Updated 08/16/24 @ 01:12 by Guillermo Regalado MD) Narrative: Patient has had progressive disability as outlined above. She has spent almost half of past 6 months in the correction or in the hospital. The rest the time she has been getting home an outpatient therapy. Despite this she seems to be declining in her functional status. She is a nonsmoker. She does not drink alcohol. No recreational drug use. Code status is full. is healthcare power of associate attorney. What is your current living situation?: I presently have a place to live Problems where you live: no known problems Problems where you live details: n/a In the past 12 months, utilities in danger of being shut off: no In past 12 months, lack of transportation kept you from medical appts, meetings, work, or getting things needed for daily living: no In the past 12 mos, have been you worried that your food would run out before you had money to buy more?: never true In the past 12 mos, the food you bought just didn't last and you didn't have mo alejandro to buy more?: never true Highest level of school completed/degree received: Bachelor's degree Smoking Status: Never smoker How often do you have a drink containing alcohol: never AUDIT-C Alcohol total score: 0 Non-prescribed substance use: denies use How often does anyone, including family, friends and others, physically hurt you : never How often does anyone, including family, friends and others, insult or talk down to you: never How often does anyone, including family, friends and others, threaten you with harm: never How often does anyone, including family, friends and others, scream or curse at you: never service: No Meds Home Medications and Allergies Home Medications ?Medication ?Instructions ?Recorded ?Confirmed ?Type aspirin 81 mg tablet,delayed 81 mg PO DAILY 11/02/21 0 07/15/24 History release cholecalciferol (vitamin D3) 25 25 mcg PO DAILY 07/15/24 History mcg (1,000 unit) capsule multivitamin with minerals 1 tab PO DAILY 11/02/21 History omega 5-ezi-wcf-fish oil 100 1 cap PO DAILY 11/02/21 0 07/15/24 History mg-160 mg-1,000 mg capsule (Fish Oil) pregabalin 50 mg capsule 50 mg PO .6 Pm, 10PM 2 07/15/24 History divalproex 250 mg tablet,extended 750 mg PO BID 07/15/24 History release 24 hr primidone 250 mg tablet 250 mg PO DAILY 12/21/22 History Lactobacillus acidophilus 0.5 mg 100 mmu cells PO TIDW M #30 tabs 03/12/24 07/15/24 Rx (100 million cell) tablet acetaminophen 500 mg tablet 1,000 mg (2 x 500 mg) PO Q 6H PRN 03/12/24 07/15/24 Rx #120 tabs insulin glargine 100 unit/mL (3 10 unit (0.1 mL) subcu t HS #3 mL 03/12/24 07/15/24 Rx mL) subcutaneous pen (Lantus Solostar U-100 Insulin) pregabalin 100 mg capsule (Lyrica) 100 mg PO QDAY 10/1907/15/24 History blood sugar diagnostic (Accu-Chek #100 ea 06/16/24 Rx Guide test strips) lancets (Accu-Chek Softclix #100 ea 06/16/24 07/15/24 Rx Lancets) atorvastatin 20 mg tablet 20 mg PO QHS #90 tabs 07/15/24 Rx digoxin 250 mcg (0.25 mg) tablet 250 mcg PO DAILY #90 tabs 06/23/24 07/15/24 Rx potassium chloride 20 mEq 20 meq PO BID #60 tabs 06/2307/15/24 Rx tablet,extended release torsemide 20 mg tablet 20 mg PO DAILY@0800 #90 tabs 06/23/24 07/15/24 Rx diltiazem HCl 240 mg 240 mg PO DAILY #90 caps 07/1907/15/24 Rx capsule,extended release 24 hr empagliflozin 10 mg tablet 10 mg PO QDAY #90 tabs 0507/1907/15/24 Rx (Jardiance) pen needle, diabetic 31 gauge x #100 ea 06/29/2407/15 Rx 05/10 metoprolol tartrate 25 mg tablet 25 mg PO BID #60 tabs 07/08/24 07/15/24 Rx primidone 125 mg tablet 125 mg PO QDAY 07/15/2406/26 History apixaban 5 mg tablet (Eliquis) 5 mg PO BID #180 tabs 0 07/27/24 Rx Home Medication Comments: Reviewed medications with her , list from [facility] records. The following medications and doses need to be clarified. Digoxin is probably reduced to 125 mcg daily. Diltiazem is probably 120 mg daily. Insulin is increased to 13 units daily. She is probably not taking Jardiance Allergies Allergy/AdvReac Type Severity Reaction Status Date / Time oxcarbazepine Allergy Severe Rash Verified 08/15/24 03:52 lacosamide Allergy Intermediate hallucinati Verified 08/15/24 03:52 ons Bee venom Allergy Unknown Uncoded 08/15/24 03:52 Exam Narrative: Exam Narrative: She is sleeping and difficult to arouse. She can briefly open her eyes but very poorly cooperates with any aspect of physical examination. Pupils are equal mid position. They appear to react to light. She does not cooperate with extraocular movements or visual field testing. There is no obvious facial asymmetry. Oropharynx with very small airway and dry mucous membranes. Neck is supple without mass or adenopathy. Respirations are clear to auscultation without wheezing rales or rhonchi. She does have somewhat diminished breath sounds and respiratory effort. Cardiovascular: S1, S2, irregular rhythm. Right breast status post remote mastectomy. Left breast has a very firm mass which family reports is due to a complication of mastectomy and possible infection of breast implant. No tenderness or redness or drainage. Abdomen is soft without tenderness or mass. Gil catheter is in place. She moves all 4 extremities a limited amount without focal weakness but very limited testing. Pedal pulses are intact. Feet are warm. 2+ edema in her lower extremities. Const: Vital Signs, click to edit/add: Vital Signs - 24 hr 08/15/24 20:09 08/15/24 20:22 08/15/24 20:30 Temperature 100.5 F H Pulse Rate 105 H 108 H Pulse Rate [Pulse Oximeter] 108 H Respiratory Rate 16 17 23 Blood Pressure Blood Pressure [Ri ght Upper Arm] 108/76 Pulse Oximetry 96 95 97 Oxygen Delivery Me thod Nasal Cannula Oxygen Flow Rate 2 08/15/24 20:45 08/15/24 20:55 08/15/24 21:00 Temperature Pulse Rate 117 H 102 H Pulse Rate [Pulse Oximeter] Respiratory Rate 21 24 Blood Pressure Blood Pressure [Ri ght Upper Arm] Pulse Oximetry 97 93 96 Oxygen Delivery Me thod Oxygen Flow Rate 08/15/24 21:15 08/15/24 21:30 08/15/24 21:31 Temperature Pulse Rate 110 H 110 H 110 H Pulse Rate [Pulse Oximeter] Respiratory Rate 19 23 22 Blood Pressure 114/69 116/65 Blood Pressure [Ri ght Upper Arm] Pulse Oximetry 98 93 93 Oxygen Delivery Me thod Oxygen Flow Rate 08/15/24 21:32 08/15/24 21:45 08/15/24 21:46 Temperature Pulse Rate 108 H 114 H 105 H Pulse Rate [Pulse Oximeter] Respiratory Rate 14 22 23 Blood Pressure 131/76 Blood Pressure [Ri ght Upper Arm] Pulse Oximetry 92 92 91 Oxygen Delivery Me thod Oxygen Flow Rate 08/15/24 22:00 08/15/24 22:01 08/15/24 22:15 Temperature Pulse Rate 115 H 106 H 106 H Pulse Rate [Pulse Oximeter] Respiratory Rate 23 21 22 Blood Pressure 123/84 Blood Pressure [Ri ght Upper Arm] Pulse Oximetry 90 90 91 Oxygen Delivery Me thod Oxygen Flow Rate 08/15/24 22:16 08/15/24 22:30 08/15/24 22:31 Temperature Pulse Rate 115 H 105 H 121 H Pulse Rate [Pulse Oximeter] Respiratory Rate 22 21 22 Blood Pressure 124/66 133/72 Blood Pressure [Ri ght Upper Arm] Pulse Oximetry 90 92 91 Oxygen Delivery Me thod Oxygen Flow Rate 08/15/24 22:45 08/15/24 22:46 08/15/24 22:47 Temperature Pulse Rate 110 H 109 H 109 H Pulse Rate [Pulse Oximeter] Respiratory Rate 24 22 21 Blood Pressure 140/63 H Blood Pressure [Ri ght Upper Arm] Pulse Oximetry 93 91 91 Oxygen Delivery Me thod Oxygen Flow Rate 08/15/24 22:53 08/15/24 23:00 08/15/24 23:01 Temperature 97.2 F L Pulse Rate 116 H 112 H Pulse Rate [Pulse Oximeter] Respiratory Rate 23 14 Blood Pressure 118/69 Blood Pressure [Ri ght Upper Arm] Pulse Oximetry 91 87 L Oxygen Delivery Me thod Oxygen Flow Rate 08/15/24 23:15 08/15/24 23:16 08/15/24 23:30 Temperature Pulse Rate 110 H 108 H 108 H Pulse Rate [Pulse Oximeter] Respiratory Rate 22 21 21 Blood Pressure 114/78 Blood Pressure [Ri ght Upper Arm] Pulse Oximetry 91 92 93 Oxygen Delivery Me thod Oxygen Flow Rate 08/15/24 23:31 08/15/24 23:45 08/15/24 23:46 Temperature Pulse Rate 114 H 102 H 107 H Pulse Rate [Pulse Oximeter] Respiratory Rate 21 24 19 Blood Pressure 116/67 124/80 Blood Pressure [Ri ght Upper Arm] Pulse Oximetry 92 92 94 Oxygen Delivery Me thod Oxygen Flow Rate 08/16/24 00:00 08/16/24 00:01 08/16/24 00:01 Temperature Pulse Rate 108 H 106 H 106 H Pulse Rate [Pulse Oximeter] Respiratory Rate 24 24 24 Blood Pressure 131/70 131/70 Blood Pressure [Ri ght Upper Arm] Pulse Oximetry 93 92 92 Oxygen Delivery Me thod Oxygen Flow Rate 08/16/24 00:01 08/16/24 00:15 06/22/25 00:16 Temperature Pulse Rate 106 H 107 H 104 H Pulse Rate [Pulse Oximeter] Respiratory Rate 24 23 24 Blood Pressure 131/70 128/74 Blood Pressure [Ri ght Upper Arm] Pulse Oximetry 92 93 93 Oxygen Delivery Me thod Oxygen Flow Rate 08/16/24 00:30 Temperature Pulse Rate 107 H Pulse Rate [Pulse Oximeter] Respiratory Rate 23 Blood Pressure Blood Pressure [Ri ght Upper Arm] Pulse Oximetry 94 Oxygen Delivery Me thod Oxygen Flow Rate Documenting provider has reviewed patient's vital signs: yes Hospitalist - H&P: Result Labs Labs: Short CBC 08/15/24 Range/Units 20:55 WBC 6.38 (4.50-11.00) K/uL Hgb 14.6 (12.0-16.0) gm/dL Hct 45.0 (33.0-51.0) % Plt Count 127 L (140-440) K/uL BMP 08/15/24 20:55 Sodium 141 Potassium 3.9 Chloride 103 Carbon Dioxide 27 BUN 23 Creatinine 0.7 Glucose 145 H Calcium 9.2 Cardiac Enzymes 08/15/24 Range/Units 20:55 Troponin I < 0.01 (0.01-0.04) ng/mL Liver Function 08/15/24 Range/Units 20:55 Total Bilirubin 0.8 (0.1-1.5) mg/dL AST 69 H (12-35) U/L ALT 45 H (4-35) U/L Alkaline Phosphatase 133 (40-150) U/L Albumin 3.8 (3.3-5.0) g/dL Urine 08/15/24 Range/Units 20:56 Urine Color Dark yellow (Yellow) Urine Appearance Clear (Clear) Urine pH 6.0 (5.0-8.5) Ur Specific [place] 1.010 (1.000-1.030) Urine Protein Negative (Negative) Urine Glucose (UA) 2+ A (Negative) ECG Attestation: I personally reviewed and interpreted this ECG as follows: (AFib. Left axis deviation. Nonspecific T-wave changes.) ECG interpretation date: 08/15/[address] Chest/Ab/Pelvis: Radiologist's impression: INDICATION: Abdominal distension, weakness, SOB. TECHNIQUE: CT chest, abdomen and pelvis acquired 98 cc Isovue 370 IV contrast. COMPARISON: None. FINDINGS: CHEST: Cardiovascular structures: Heart size is normal. Thoracic aorta and main pulmonary artery are normal in caliber. Atherosclerotic calcifications of the coronary arteries. Atherosclerotic calcifications of the aorta and branch vessels. Mediastinum and khalif: No mass or pathologic adenopathy. Lungs and pleura: Bilateral subsegmental atelectasis. No suspicious nodules, infiltrates, or effusions. Chest wall and axilla: No mass or adenopathy. Bilateral breast implants. The left implant appears smaller than the right with calcifications, likely sequelae of prior rupture. Bones: No acute or suspicious lesions. ABDOMEN AND PELVIS: Liver: Unremarkable. Gallbladder and bile ducts: Cholecystectomy. Pancreas: Unremarkable. Spleen: Unremarkable. Adrenal glands: Unremarkable. Kidneys: Cysts and subcentimeter hypodense lesions too small to characterize, possibly cysts. Possible prior left partial nephrectomy. No hydronephrosis or obstructive urolithiasis. GI tract: Small hiatal hernia. Normal caliber bowel. No secondary signs of appendicitis. Colonic diverticuli, but no definite acute diverticulitis. Vascular structures: Unremarkable. Lymph nodes: Unremarkable. Peritoneum/Retroperitoneum/Abdominal Wall: Unremarkable. No free air or significant free fluid. Pelvic Organs: Bladder is collapsed with catheter in place. Hysterectomy. Bones and superficial soft tissues: No acute or suspicious lesions. IMPRESSION: 1. No definite acute findings to explain the patient`s symptoms. 2. 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 CT scan - head: Radiologist's impression: Indication: Altered mental status, anticoagulated Technique: Noncontrast CT through the head with multiplanar reformats Comparison: None Findings: Brain: No acute hemorrhage. No acute infarct. No significant mass effect or midline shift. No gross evidence of a mass lesion or cerebral edema. Moderate chronic microvascular ischemic disease and global parenchymal volume loss. Ventricles: No acute abnormality appreciated. Orbits, sinuses, mastoids: No acute abnormality appreciated. Calvarium and soft tissues: No acute abnormality appreciated. Impression: No acute abnormality appreciated. Chest x-ray: Radiologist's impression: INDICATION: Weakness and fever TECHNIQUE: Chest 1 views. COMPARISON: Chest radiograph on August 15, 2024 at 2:[address] chest, abdomen and pelvis on August 15, 2024. FINDINGS: Cardiovasculature and mediastinum: Cardiomegaly, stable. Stable mediastinal contours. Lungs and pleural spaces: Similar appearance of the lungs with mild bilateral diffuse interstitial prominence. No new lung abnormality. No sign of infiltrate or mass. No sign of pleural effusion. No pneumothorax. Bones and soft tissues: No significant findings. IMPRESSION: Compared to same day chest radiograph, similar appearance of the lungs with mild bilateral diffuse interstitial prominence which may reflect pulmonary edema and/or atypical infection. No new lung abnormality.
[2024-08-16 02:01] LABS: Magnesium* 2.1 mg/dL (1.5-2.6)
[2024-08-16] MEDS: DIVALPROEX SODIUM ER TAB 250 MG 750 MG PO ×3 (02:04→21:16)
[2024-08-16] MEDS: PREGABALIN 50 MG CAPSULE PO ×3 (02:05→21:10)
[2024-08-16] MEDS: ATORVASTATIN CALCIUM 10 MG TABLET 20 MG PO ×2 (02:05→21:10)
[2024-08-16] MEDS: INSULIN GLARGINE,HUM.REC.ANLOG 100 UNIT/ML INSULN.PEN 10 UNIT SUBCUT ×2 (02:09→21:13)
[2024-08-16 02:14] LABS: Troponin I* < 0.01 ng/mL (0.01-0.04)
--- NOTE | 2024-08-16 04:58 | P.CCN_ITS ---
Subjective Subjective Principal diagnosis: A-fib with RVR Interval history: Patient was admitted with what appears to be a urinary tract infection possible sepsis with a history of A-fib with multiple rate controlling medications along with anticoagulation. Patient does appear to be confused per history it is unclear what her home medications are per admitting physician. I was contacted by nursing staff stating that patient's heart rate was anywhere from the 110s to the 160s appeared to be atrial fibrillation. Patient was reported is completely asymptomatic and at her baseline. Objective Objective Data Details: Twelve-lead EKG was reviewed appears to show A-fib but RVR. No ST elevations or depressions. Assessment and Plan Assessment and plan (1) Atrial fibrillation with rapid ventricular response: Problem comment: -resolved with new regimen of diltiazem, metoprolol, digoxin. Status: Resolved Plan Patient's chart was reviewed extensively, patient was discussed in detail with nursing staff. She appears to have atrial fibrillation with rapid ventricular response. Fortunately she is asymptomatic with this. There appears to be confusion on her home medications. It is unclear what they are. Patient on her home H&P appears to take 250 mcg daily of digoxin, and 25 mg of metoprolol twice a day. The admitting physician wrote for 125 mg of digoxin daily with 50 mg twice a day of metoprolol. He did clearly state he would prefer to hold the diltiazem unless absolutely needed for rate control. Suspect this is secondary to heart failure. Will take the most conservative approach we can always give additional medications as she is asymptomatic. Since we are unclear on the exact doses we will give her her national coverage specialist doses now. Will start with 125 mcg of digoxin as we are not sure which dose she is actually on we can give her additional doses if needed we will also give her 25 mg twice daily of metoprolol. If rate is not controlled this can be increased prior to adding diltiazem. She is will be continued to be monitored. Andrew Chilel DO, Pharm. D. Total Time Spent Total Time Spent: 20 min
[2024-08-16] MEDS: METOPROLOL TARTRATE 25 MG TABLET PO (05:19)
[2024-08-16] MEDS: DIGOXIN 125 MCG TABLET PO (05:20)
--- NOTE | 2024-08-16 08:22 | PC.NURSE ---
Shift note ([id number]): Patient admitted from ED at 0036. Pleasant and orientated. Slide transferred with staff assistance to room bed from ED bed. Very sleepy on arrival. Patient was falling asleep at times during assessment. Some of her speech was mumbled?however she answered appropriately. Open area to left buttock - Measures approximately 2.5mm round. No active drainage. Area cleansed and Mepilex dressing was applied. Surrounding skin pink but blanchable. Pt denied any discomfort at site or with cleansing. At approximately 0350 heart rate was elevated to 127. BP 103/60, T 99.3, R 20, O2 92% on RA. Telemetry showed A-Fib with RVR. Patient was asymptomatic. Denied any pain, chest tightness/discomfort, headache, lightheadedness, dizziness. Reported to law writer that she felt fine. Shane called and updated. EKG performed. Current EKG and EKG obtained yesterday AM in ED was faxed to Shane per request. Heart rate ranging from?120s to 164 at that time. New orders from Dr Chilel: Give AM doses of Metoprolol 25mg and Digoxin 125mcg now. Pt did seem anxious before administering both medications but continued to report she felt fine. Blood sugar obtained and was 185. Heart rate has decreased to 107 this morning and patient has been sleeping.
[2024-08-16] MEDS: METOPROLOL TARTRATE 1 MG/ML inj 5 MG IVP (11:52)
[2024-08-16] MEDS: SODIUM CHLORIDE 0.9 % (FLUSH) 10 ML SYRINGE 5 ML IVF ×2 (11:52→21:16)
[2024-08-16] MEDS: ONDANSETRON 2 MG/ML inj 4 MG IVP (11:52)
[2024-08-16] MEDS: PRIMIDONE 50 MG TABLET 125 MG PO (12:52)
[2024-08-16] MEDS: APIXABAN 5 MG TABLET PO ×2 (12:52→21:13)
[2024-08-16] MEDS: PREGABALIN 100 MG CAPSULE PO (12:53)
[2024-08-16] MEDS: TORSEMIDE 20 MG TABLET PO (12:53)
[2024-08-16] MEDS: EMPAGLIFLOZIN 10 MG TABLET PO (12:54)
[2024-08-16] MEDS: INSULIN ASPART 100 UNIT/ML SUBCUT ×3 (15:09→21:14)
[2024-08-16] MEDS: DOXYCYCLINE HYCLATE 100 MG PO ×2 (15:10→21:11)
--- NOTE | 2024-08-16 17:35 | P.IMPN_ITS ---
Assessment and Plan Assessment and plan (1) Metabolic encephalopathy: Problem comment: Combination of acute illness with fever and polypharmacy. Continue to review and reduce psychoactive medications. May need to consult her Neurologist. History of elevated ammonia thought secondary to Depakote. Check level. Neurologist found a normal Depakote level on blood testing 07/09/2024 according to 08/16 I agree this is likely a combination of acute febrile illness, likely UTI, and recent increase in psychoactive medications. Additional primidone dose that was recently added has been stopped, and her morning primidone has been decreased to half the usual dose. Monitor. Patient is not hypoglycemic. I think less likely is postictal state especially since she has had symptoms for a month that of only recently worsened, and has not had any known recent seizures. Status: Acute (2) Fever: Problem comment: Onset 08/15, no fever since yesterday evening. Probably due to UTI. Status: Acute (3) Acute UTI: Problem comment: Onset 08/15. Urine culture shows Gram-negative kunal, blood cultures no growth today, continue ceftriaxone pending final culture results. Status: Acute (4) Tremor: Problem comment: On primidone. Her profound sleepiness has developed sense primidone dose was increased. Primidone now at lower dose. Status: Acute (5) Physical debility: Problem comment: Profound physical disability due to deconditioning, sedation, acute illness, sedentary life. She will need to make significant progress to return to being able to walk with a walker and lives with her PT consult today. Status: Acute (6) Polypharmacy: Problem comment: Continue to review and deprescribed if possible Status: Acute (7) Weakness: Problem comment: Suspect multifactorial secondary to febrile illness, UTI, polypharmacy, primidone Status: Acute (8) Seizure disorder: Problem comment: -Epilepsy controlled with Depakote and primidone for years and her last known seizure was many years ago Status: Chronic (9) Atrial fibrillation: Problem comment: Eliquis for anticoagulation. Digoxin and metoprolol for rate control. I favor stopping diltiazem unless necessary for rate control. Status: Acute (10) Chronic anticoagulation: Problem comment: On Eliquis for AFib. Also on aspirin without history of [place], stent, stroke. Stop aspirin. Status: Acute (11) Abnormal LFTs: Problem comment: Suspect SILVA. Not clear that she has had workup for this. Recheck in the morning. Status: Acute (12) Diabetes mellitus: Problem comment: 08/15 reports this is been well controlled. Blood sugars typically in the low 100s. Elevated blood sugar today with onset of fever and illness. 08/16 point of care glucoses are 160s to 200. This is within inpatient goal to prevent hypoglycemia. Continue current regiment. Status: Acute (13) Discharge planning issues: Problem comment: Patient is profoundly mentally and physically disabled. She appears far from being able to live independently with her . This is concerning given that she has spent approximately half of the last 6 months in prison or hospital. Engage therapy and nephrology social worker to evaluate and treat. Continue to discuss challenges with patient and family. Status: Acute (14) Obstructive sleep apnea: Problem comment: Home CPAP? Status: Acute Plan Continue evaluating metabolic encephalopathy, evaluating adjusting medications, working with therapies, social work consult, awaiting urine culture results, antibiotics for UTI. Total Time Spent Total Time Spent: Today I spent 35 minutes seeing the patient, reviewing Expanse and EPIC notes/diagnostics/labs, discussing the care plan with our care team that includes social work, PT/OT, pharmacy, RT, alf and documenting my impressions and plan in the medical record. Subjective Time Seen by Provider: 11:25 Date Seen: 08/16/24 Interval history: Kisha is still quite sleepy this morning. She denies any concerns. Overnight she had an elevated heart rate and is chronically in atrial fibrillation. For AFib with RVR, she was given her usual morning medications early. Her heart rate has improved some. She denies chest pain or shortness of breath. Exam Narrative: Exam Narrative: General: No acute distress. Sitting up in the bedside chair, sleepy, raises eyebrows, but does not open eyes. Does answer a few questions sleepily. No pallor. No jaundice. Morbidly obese, mostly central obesity. Oropharynx: Clear. Mucous membranes moist. Cardiovascular: Irregularly irregular. No murmurs, gallops, or rubs. Respiratory: Clear to auscultation bilaterally. No wheezes or crackles. Abdomen: Bowel sounds present. Soft, nondistended, nontender. Extremities: No lower extremity edema. Const: Vital Signs, click to edit/add: Vital Signs - 24 hr 08/15/24 20:09 08/15/24 20:22 08/15/24 20:30 Temperature 100.5 F H Pulse Rate 105 H 108 H Pulse Rate [Pulse Oximeter] 108 H Respiratory Rate 16 17 23 Blood Pressure Blood Pressure [Ri ght Arm] Blood Pressure [Ri ght Upper Arm] 108/76 Pulse Oximetry 96 95 97 Oxygen Delivery Me thod Nasal Cannula Oxygen Flow Rate 2 08/15/24 20:45 08/15/24 20:55 08/15/24 21:00 Temperature Pulse Rate 117 H 102 H Pulse Rate [Pulse Oximeter] Respiratory Rate 21 24 Blood Pressure Blood Pressure [Ri ght Arm] Blood Pressure [Ri ght Upper Arm] Pulse Oximetry 97 93 96 Oxygen Delivery Me thod Oxygen Flow Rate 08/15/24 21:15 08/15/24 21:30 08/15/24 21:31 Temperature Pulse Rate 110 H 110 H 110 H Pulse Rate [Pulse Oximeter] Respiratory Rate 19 23 22 Blood Pressure 114/69 116/65 Blood Pressure [Ri ght Arm] Blood Pressure [Ri ght Upper Arm] Pulse Oximetry 98 93 93 Oxygen Delivery Me thod Oxygen Flow Rate 08/15/24 21:32 08/15/24 21:45 08/15/24 21:46 Temperature Pulse Rate 108 H 114 H 105 H Pulse Rate [Pulse Oximeter] Respiratory Rate 14 22 23 Blood Pressure 131/76 Blood Pressure [Ri ght Arm] Blood Pressure [Ri ght Upper Arm] Pulse Oximetry 92 92 91 Oxygen Delivery Me thod Oxygen Flow Rate 08/15/24 22:00 08/15/24 22:01 08/15/24 22:15 Temperature Pulse Rate 115 H 106 H 106 H Pulse Rate [Pulse Oximeter] Respiratory Rate 23 21 22 Blood Pressure 123/84 Blood Pressure [Ri ght Arm] Blood Pressure [Ri ght Upper Arm] Pulse Oximetry 90 90 91 Oxygen Delivery Me thod Oxygen Flow Rate 08/15/24 22:16 08/15/24 22:30 08/15/24 22:31 Temperature Pulse Rate 115 H 105 H 121 H Pulse Rate [Pulse Oximeter] Respiratory Rate 22 21 22 Blood Pressure 124/66 133/72 Blood Pressure [Ri ght Arm] Blood Pressure [Ri ght Upper Arm] Pulse Oximetry 90 92 91 Oxygen Delivery Me thod Oxygen Flow Rate 08/15/24 22:45 08/15/24 22:46 08/15/24 22:47 Temperature Pulse Rate 110 H 109 H 109 H Pulse Rate [Pulse Oximeter] Respiratory Rate 24 22 21 Blood Pressure 140/63 H Blood Pressure [Ri ght Arm] Blood Pressure [Ri ght Upper Arm] Pulse Oximetry 93 91 91 Oxygen Delivery Me thod Oxygen Flow Rate 08/15/24 22:53 08/15/24 23:00 08/15/24 23:01 Temperature 97.2 F L Pulse Rate 116 H 112 H Pulse Rate [Pulse Oximeter] Respiratory Rate 23 14 Blood Pressure 118/69 Blood Pressure [Ri ght Arm] Blood Pressure [Ri ght Upper Arm] Pulse Oximetry 91 87 L Oxygen Delivery Me thod Oxygen Flow Rate 08/15/24 23:15 08/15/24 23:16 08/15/24 23:30 Temperature Pulse Rate 110 H 108 H 108 H Pulse Rate [Pulse Oximeter] Respiratory Rate 22 21 21 Blood Pressure 114/78 Blood Pressure [Ri ght Arm] Blood Pressure [Ri ght Upper Arm] Pulse Oximetry 91 92 93 Oxygen Delivery Me thod Oxygen Flow Rate 08/15/24 23:31 08/15/24 23:45 08/15/24 23:46 Temperature Pulse Rate 114 H 102 H 107 H Pulse Rate [Pulse Oximeter] Respiratory Rate 21 24 19 Blood Pressure 116/67 124/80 Blood Pressure [Ri ght Arm] Blood Pressure [Ri ght Upper Arm] Pulse Oximetry 92 92 94 Oxygen Delivery Me thod Oxygen Flow Rate 08/16/24 00:00 08/16/24 00:01 08/16/24 00:01 Temperature Pulse Rate 108 H 106 H 106 H Pulse Rate [Pulse Oximeter] Respiratory Rate 24 24 24 Blood Pressure 131/70 131/70 Blood Pressure [Ri ght Arm] Blood Pressure [Ri ght Upper Arm] Pulse Oximetry 93 92 92 Oxygen Delivery Me thod Oxygen Flow Rate 08/16/24 00:01 08/16/24 00:15 08/16/24 00:16 Temperature Pulse Rate 106 H 107 H 104 H Pulse Rate [Pulse Oximeter] Respiratory Rate 24 23 24 Blood Pressure 131/70 128/74 Blood Pressure [Ri ght Arm] Blood Pressure [Ri ght Upper Arm] Pulse Oximetry 92 93 93 Oxygen Delivery Me thod Oxygen Flow Rate 08/16/24 00:30 08/16/24 01:07 08/16/24 01:07 Temperature 98.6 F Pulse Rate 107 H Pulse Rate [Pulse Oximeter] 105 H Respiratory Rate 23 18 20 Blood Pressure Blood Pressure [Ri ght Arm] 142/77 H Blood Pressure [Ri ght Upper Arm] Pulse Oximetry 94 94 94 Oxygen Delivery Me thod Room Air Room Air Oxygen Flow Rate 08/16/24 04:03 08/16/24 04:50 08/16/24 05:20 Temperature 99.3 F Pulse Rate 159 H Pulse Rate [Pulse Oximeter] 127 H 164 H Respiratory Rate 20 Blood Pressure Blood Pressure [Ri ght Arm] 103/60 Blood Pressure [Ri ght Upper Arm] Pulse Oximetry 92 Oxygen Delivery Me thod Room Air Oxygen Flow Rate 08/16/24 07:00 08/16/24 07:00 08/16/24 07:00 Temperature 98.5 F Pulse Rate Pulse Rate [Pulse Oximeter] 110 H 110 H Respiratory Rate 20 20 16 Blood Pressure Blood Pressure [Ri ght Arm] 115/76 Blood Pressure [Ri ght Upper Arm] Pulse Oximetry 92 92 Oxygen Delivery Me thod Room Air Room Air Oxygen Flow Rate 08/16/24 07:00 08/16/24 11:00 08/16/24 15:00 Temperature 98.1 F Pulse Rate 96 Pulse Rate [Pulse Oximeter] 98 98 Respiratory Rate 16 16 Blood Pressure Blood Pressure [Ri ght Arm] 92/70 Blood Pressure [Ri ght Upper Arm] Pulse Oximetry 93 Oxygen Delivery Me thod Room Air Oxygen Flow Rate 08/16/24 15:00 08/16/24 15:00 08/16/24 15:00 Temperature 98 F Pulse Rate 113 H Pulse Rate [Pulse Oximeter] 97 Respiratory Rate 20 18 Blood Pressure Blood Pressure [Ri ght Arm] 114/72 Blood Pressure [Ri ght Upper Arm] Pulse Oximetry 93 92 Oxygen Delivery Me thod Room Air Room Air Oxygen Flow Rate Labs Labs: Laboratory Results - last 24 hr 08/15/24 08/15/24 08/15/24 20:52 20:55 20:56 WBC 6.38 RBC 4.87 Hgb 14.6 Hct 45.0 MCV 92 MCH 30 MCHC 32 RDW Coeff of Valerie 15.6 H Plt Count 127 L Neut % (Auto) 63.3 Lymph % (Auto) 23.8 [place] % (Auto) 11.4 H Eos % (Auto) 0.6 Baso % (Auto) 0.3 Neut # (Auto) 4.03 Lymph # (Auto) 1.52 [place] # (Auto) 0.70 Eos # (Auto) 0.04 Baso # (Auto) 0.02 Abs Immat Gran (auto) 0.04 Imm/Tot Granulo (auto) 0.6 VBG pH 7.425 VBG pCO2 44 VBG pO2 42.2 VBG HCO3 29 H Sodium 141 Potassium 3.9 Chloride 103 Carbon Dioxide 27 Anion Gap 11 BUN 23 Creatinine 0.7 Estimated Creat Clear 43.40 Estimated GFR 88 Glucose 145 H Lactate 2.3 H Calcium 9.2 Magnesium Total Bilirubin 0.8 AST 69 H ALT 45 H Alkaline Phosphatase 133 Ammonia Troponin I < 0.01 C-Reactive Protein 12.9 H NT-Pro-B Natriuret Pep 2860 H Total Protein 7.9 Albumin 3.8 Procalcitonin 0.30 TSH Urine Color Dark yellow Urine Appearance Clear Urine pH 6.0 Ur Specific [place] 1.010 Urine Protein Negative Urine Glucose (UA) 2+ A Urine Ketones 1+ A Urine Blood Trace-intact A Urine Nitrite Negative Urine Bilirubin Negative Urine Urobilinogen 0.2 Ur Leukocyte Esterase Negative Urine RBC 0-2 Urine WBC 10-25 A Ur Squamous Epith Cells None Urine Bacteria None Digoxin 0.9 SARS-CoV-2 (PCR) Negative SARS-CoV-2 Influenza Type A (PCR) Negative PCR FLU A Influenza Type B (PCR) Negative PCR FLU B RSV (PCR) Negative PCR RSV Lab Acknowledgement 08/16/24 08/16/24 08/16/24 00:52 01:34 01:35 WBC RBC Hgb Hct MCV MCH MCHC RDW Coeff of Valerie Plt Count Neut % (Auto) Lymph % (Auto) [place] % (Auto) Eos % (Auto) Baso % (Auto) Neut # (Auto) Lymph # (Auto) [place] # (Auto) Eos # (Auto) Baso # (Auto) Abs Immat Gran (auto) Imm/Tot Granulo (auto) VBG pH VBG pCO2 VBG pO2 VBG HCO3 Sodium Potassium Chloride Carbon Dioxide Anion Gap BUN Creatinine Estimated Creat Clear Estimated GFR Glucose Lactate Calcium Magnesium 2.1 Total Bilirubin AST ALT Alkaline Phosphatase Ammonia 29.0 Troponin I < 0.01 C-Reactive Protein NT-Pro-B Natriuret Pep Total Protein Albumin Procalcitonin TSH 5.910 H Urine Color Urine Appearance Urine pH Ur Specific [place] Urine Protein Urine Glucose (UA) Urine Ketones Urine Blood Urine Nitrite Urine Bilirubin Urine Urobilinogen Ur Leukocyte Esterase Urine RBC Urine WBC Ur Squamous Epith Cells Urine Bacteria Digoxin SARS-CoV-2 (PCR) Influenza Type A (PCR) Influenza Type B (PCR) RSV (PCR) Lab Acknowledgement Test Added
--- NOTE | 2024-08-16 18:52 | PC.NURSE ---
[id number]: Patient drowsy throughout shift. Drifting off to sleep mid-conversation. Keeping eyes closed while daughter fed her. Responds to simple questioning only. Up to the chair with assist of 2, walker and GB. PT/OT verbalized possibly needing to use ernestina stedy from chair to bed.
[2024-08-16] MEDS: POTASSIUM CHLORIDE 10 MEQ CAPSULE ER 20 MEQ PO (21:12)
[2024-08-16] MEDS: METOPROLOL TARTRATE 25 MG TABLET 50 MG PO (21:12)
[2024-08-17] VITALS (10 sets, daily range): BP systolic 96–125; BP diastolic 46–75; PULSE 76–141; RESP 18–24; TEMP 36.2–37.3; O2SAT 22–96
--- NOTE | 2024-08-17 04:55 | PC.NURSE ---
Shift note: Patient continue to feel weak. Difficult 2 person assist from recliner to bed. Patient requires SteriSteady to facilitate easy transfer. Bedside commode require. Patient slow to speak and respond to questions. Takes pill whole with puttin, 1 pill at a time. Gil in place and draining deep bharath color urine. Patient had adequate sleep. A.fib on tele reading. HR has been between 96 and 119.
[2024-08-17 06:44] LABS: Basophils Absolute Auto 0.03 K/uL (0.00-0.30); Basophils Percent Auto 0.4 % (0.0-3.0); Eosinophils Absolute Auto 0.21 K/uL (0.00-0.50); Hematocrit 42.2 % (33.0-51.0); Hemoglobin* 13.9 gm/dL (12.0-16.0); Immature Granulocytes Abs Auto 0.02 K/uL (0.00-0.30); Immature Granulocytes Pct Auto 0.3 %; Lymphocytes Absolute Auto 1.85 K/uL (0.90-2.90); Lymphocytes Percent Auto 26.3 % (20-44); Mean Corpuscular HGB Conc 33 gm/dL (32-36); Mean Corpuscular Hemoglobin 30 pg (26-34); Mean Corpuscular Volume 92 fL (80-100); Monocytes Percent Auto 14.9 % (0.0-11.0); Neutrophils Absolute Auto 3.88 K/uL (1.7-7.0); Neutrophils Percent Auto 55.1 % (42.0-72.0); Platelet Count* 125 K/uL (140-440); RDW Coefficient of Variation % 15.7 % (11.5-15.5); Red Blood Count 4.61 m/uL (4.00-5.20); White Blood Count* 7.04 K/uL (4.50-11.00)
[2024-08-17 06:50] LABS: Slide Review Reflex No
[2024-08-17 06:58] LABS: Chloride* 99 mmol/L (96-114); Sodium* 134 mmol/L (135-149)
[2024-08-17 07:00] LABS: Blood Urea Nitrogen* 21 mg/dL (7-30); Creatinine* 0.6 mg/dL (0.5-1.5); Estimated Glomerular Filt Rate 92 ml/min
[2024-08-17 07:01] LABS: Anion Gap 8 mEq/L (7-15); Carbon Dioxide* 27 mmol/L (20-32); Cholesterol* 127 mg/dL (90-199); Triglycerides* 189 mg/dL (40-149)
[2024-08-17 07:02] LABS: Calcium* 8.6 mg/dL (8.4-10.6); Glucose* 149 mg/dL (60-115); HDL Cholesterol* 17 mg/dL (>=50); LDL Cholesterol Calculated 72 mg/dL (<100)
[2024-08-17 07:16] LABS: C Reactive Protein* 17.8 mg/dL (0.5-1.0)
[2024-08-17] MEDS: INSULIN ASPART 100 UNIT/ML SUBCUT ×3 (07:58→21:11)
[2024-08-17] MEDS: TORSEMIDE 20 MG TABLET PO (07:58)
[2024-08-17] MEDS: POTASSIUM CHLORIDE 10 MEQ CAPSULE ER 20 MEQ PO ×2 (09:30→21:10)
[2024-08-17] MEDS: DIVALPROEX SODIUM ER TAB 250 MG 750 MG PO ×2 (09:30→21:10)
[2024-08-17] MEDS: PRIMIDONE 50 MG TABLET 125 MG PO (09:31)
[2024-08-17] MEDS: PREGABALIN 100 MG CAPSULE PO (09:31)
[2024-08-17] MEDS: APIXABAN 5 MG TABLET PO ×2 (09:32→21:11)
[2024-08-17] MEDS: METOPROLOL TARTRATE 25 MG TABLET 50 MG PO ×2 (09:32→21:10)
[2024-08-17] MEDS: DOXYCYCLINE HYCLATE 100 MG PO ×2 (09:32→21:10)
[2024-08-17] MEDS: EMPAGLIFLOZIN 10 MG TABLET PO (09:33)
[2024-08-17] MEDS: SODIUM CHLORIDE 0.9 % (FLUSH) 10 ML SYRINGE 5 ML IVF ×2 (09:33→21:11)
[2024-08-17] MEDS: DIGOXIN 125 MCG TABLET PO (09:33)
--- NOTE | 2024-08-17 16:05 | PC.SOCIAL ---
Discharge Planing: SW met with patient's while patient was sleeping to discuss TCU. Patient's feels this is the best option for her right now. SW provided a list of local TCU's and states that he feels that he needs the specific bariatric list as this was provided to them last time as they were having trouble placing her due to weight. SW provided the bariatric SNF list to . SW explained if there are placed on the local list that aren't on the bariatric list that they would like referrals sent to, SW is happy to do that or call to see if they accept patient's weight. states that he would like to talk with patient about options for TCU and will know more in the morning. SW to meet with patient and on 08/18.
--- NOTE | 2024-08-17 17:19 | PM.IMPN1 ---
Assessment and Plan Assessment and plan (1) Metabolic encephalopathy: Problem comment: Combination of acute illness with fever and polypharmacy. Continue to review and reduce psychoactive medications. May need to consult her Neurologist. History of elevated ammonia thought secondary to Depakote. Check level. Neurologist found a normal Depakote level on blood testing 07/09/2024 according to 08/16 I agree this is likely a combination of acute febrile illness, likely UTI, and recent increase in psychoactive medications. Additional primidone dose that was recently added has been stopped, and her morning primidone has been decreased to half the usual dose. Monitor. Patient is not hypoglycemic. I think less likely is postictal state especially since she has had symptoms for a month that of only recently worsened, and has not had any known recent seizures. 08/17 Some improvement. Will trial splitting dose of primidone. Status: Acute (2) Fever: Problem comment: Onset 08/15, no fever since yesterday evening. Probably due to UTI. Status: Acute (3) Acute UTI: Problem comment: Onset 08/15. Urine culture shows pansensitive Ecoli, blood cultures no growth to date, continue ceftriaxone x 3 days total. Status: Acute (4) Tremor: Problem comment: On primidone. Her profound sleepiness has developed sense primidone dose was increased. Primidone now at lower dose. Status: Acute (5) Physical debility: Problem comment: Profound physical disability due to deconditioning, sedation, acute illness, sedentary life. She will need to make significant progress to return to being able to walk with a walker and lives with her Continue PT and OT. Will likely need rehab. Status: Acute (6) Polypharmacy: Problem comment: Continue to review and deprescribed if possible Status: Acute (7) Weakness: Problem comment: Suspect multifactorial secondary to febrile illness, UTI, polypharmacy, primidone Status: Acute (8) Seizure disorder: Problem comment: -Epilepsy controlled with Depakote and primidone for years and her last known seizure was many years ago Status: Chronic (9) Atrial fibrillation: Problem comment: Eliquis for anticoagulation. Digoxin and metoprolol for rate control. Diltiazem stopped. Status: Acute (10) Chronic anticoagulation: Problem comment: On Eliquis for AFib. Also on aspirin without history of [place], stent, stroke. Stop aspirin. Status: Acute (11) Abnormal LFTs: Problem comment: Suspect SILVA. Not clear that she has had workup for this. Recheck in the morning. Liver dysfunction maybe contributing to prolonging effects of primidone. Status: Acute (12) Diabetes mellitus: Problem comment: 08/15 reports this is been well controlled. Blood sugars typically in the low 100s. Elevated blood sugar today with onset of fever and illness. 08/16 point of care glucoses are 160s to 200. This is within inpatient goal to prevent hypoglycemia. Continue current regimen. 08/17 POC glucoses 125-212. Continue current regimen. Status: Acute (13) Discharge planning issues: Problem comment: Patient is profoundly mentally and physically disabled. She appears far from being able to live independently with her . This is concerning given that she has spent approximately half of the last 6 months in penitentiary or hospital. Engage therapy and community mental health social worker to evaluate and treat. Continue to discuss challenges with patient and family. Status: Acute (14) Obstructive sleep apnea: Problem comment: Home CPAP? Status: Acute Plan Continue evaluating metabolic encephalopathy, evaluating adjusting medications, working with therapies, social work consult, awaiting urine culture results, antibiotics for UTI. Total Time Spent Total Time Spent: Today I spent 50 minutes seeing the patient, discussing with the patient's , reviewing Expanse and EPIC notes/diagnostics/labs, discussing the care plan with our care team that includes social work, PT/OT, pharmacy, RT, penitentiary and documenting my impressions and plan in the medical record. Subjective Time Seen by Provider: 11:52 Date Seen: 08/17/24 Interval history: Kisha remains sleepy, but she opened her eyes several times and said a few words. Her , Pratik, is in the room with her, and he notes that she looks a better today than when she 1st came in. Notes that when she was at home, she was unable to really engage with a conversation at all and uneven interested in watching TV, which is very unusual for her. Today she knew what time it was and even asked to turn on the TV to watch her favorite show mid morning. Pratik and I discussed her current level of needs, including 2 assist, and how difficult that would be for him to do at home. He recognizes that she likely needs rehab again at this point, but notes the challenges in finding a rehab for her and that she has already had a lot of rehab this year. He is worried that she will get into rehab and they will tell him that he cannot take her home again and then she will be stuck there for ever. He has made a lot of changes to the house, including making have steps for the front steps so that she can get in an out of the house if they need to go somewhere. He again talked about how he thinks the change in primidone dose was what started her extreme sleepiness. Exam Narrative: Exam Narrative: General: No acute distress. Sitting up in the bedside chair, sleepy, opening eyes on occasion today. Answers a few questions sleepily. No pallor. No jaundice. Oropharynx: Clear. Mucous membranes moist. Cardiovascular: Irregularly irregular. No murmurs, gallops, or rubs. Respiratory: Clear to auscultation bilaterally. No wheezes or crackles. Extremities: No lower extremity edema. Const: Vital Signs, click to edit/add: Vital Signs - 24 hr 08/16/24 19:00 08/16/24 22:52 08/16/24 22:52 Temperature 99.1 F Pulse Rate Pulse Rate [Pulse Oximeter] 109 H 109 H Respiratory Rate 18 18 18 Blood Pressure [Ri ght Arm] 117/73 Pulse Oximetry 89 90 Oxygen Delivery Me thod Room Air Room Air 08/16/24 22:52 08/16/24 23:00 08/17/24 02:45 Temperature 98.7 F 98.2 F Pulse Rate 104 H Pulse Rate [Pulse Oximeter] 96 115 H Respiratory Rate 18 18 Blood Pressure [Ri ght Arm] 113/57 L 104/68 Pulse Oximetry 90 92 Oxygen Delivery Sd thod Room Air Room Air 08/17/24 07:01 08/17/24 08:03 08/17/24 08:03 Temperature 97.2 F L Pulse Rate 141 H Pulse Rate [Pulse Oximeter] 105 H 105 H Respiratory Rate 18 18 Blood Pressure [Ri ght Arm] 110/67 Pulse Oximetry 94 Oxygen Delivery Sd thod Room Air 08/17/24 08:03 08/17/24 09:33 08/17/24 11:29 Temperature 99.1 F Pulse Rate 105 H Pulse Rate [Pulse Oximeter] 96 Respiratory Rate 18 24 Blood Pressure [Ri ght Arm] 96/56 L Pulse Oximetry 94 96 Oxygen Delivery Me thod Room Air Room Air 08/17/24 11:32 08/17/24 14:26 08/17/24 14:26 Temperature 98.9 F Pulse Rate Pulse Rate [Pulse Oximeter] 76 109 H 109 H Respiratory Rate 22 22 Blood Pressure [Ri ght Arm] 103/75 109/65 Pulse Oximetry 22 L Oxygen Delivery Me thod Room Air 08/17/24 14:26 08/17/24 15:55 Temperature Pulse Rate 104 H Pulse Rate [Pulse Oximeter] Respiratory Rate 22 Blood Pressure [Ri ght Arm] Pulse Oximetry 90 Oxygen Delivery Sd thod Room Air Labs Labs: Laboratory Results - last 24 hr 08/17/24 06:20 WBC 7.04 RBC 4.61 Hgb 13.9 Hct 42.2 MCV 92 MCH 30 MCHC 33 RDW Coeff of Valerie 15.7 H Plt Count 125 L Neut % (Auto) 55.1 Lymph % (Auto) 26.3 [place] % (Auto) 14.9 H Eos % (Auto) 3.0 Baso % (Auto) 0.4 Neut # (Auto) 3.88 Lymph # (Auto) 1.85 [place] # (Auto) 1.00 H Eos # (Auto) 0.21 Baso # (Auto) 0.03 Abs Immat Gran (auto) 0.02 Imm/Tot Granulo (auto) 0.3 Sodium 134 L Potassium 4.0 Chloride 99 Carbon Dioxide 27 Anion Gap 8 BUN 21 Creatinine 0.6 Estimated Creat Clear 43.40 Estimated GFR 92 Glucose 149 H Calcium 8.6 C-Reactive Protein 17.8 H Triglycerides 189 H Cholesterol 127 LDL Cholesterol, Calc 72 HDL Cholesterol 17 L
[2024-08-17] MEDS: PREGABALIN 50 MG CAPSULE PO ×2 (17:31→21:10)
[2024-08-17] MEDS: cefTRIAXone 1 GM in 0.9 % SODIUM CHLORIDE Mini-bag 100 ML IVPB (18:28)
[2024-08-17] MEDS: 0.9 % SODIUM CHLORIDE 250 ml IV (18:28)
--- NOTE | 2024-08-17 19:34 | PC.NURSE ---
End of Shift: Patient pleasant and cooperative, alert and oriented. Patient vitally stable, with soft BPs at times(see vitals), lungs clear, BS WNL, IV SL and intact. Patient reported chronic LE pain 5/10, otherwise no pain. Patient 1-2A/walker. Patient has a mepilex on bottom C/D/I. Gil intact and draining. Patient has been up in chair for all meals. Patient tolerating regular diet, fed patient for two meals. Patient was more drowsy this morning with eye closed when speaking, but patient has been more talkative beginning later morning. Tele=A.fib
[2024-08-17] MEDS: ATORVASTATIN CALCIUM 10 MG TABLET 20 MG PO (21:10)
[2024-08-17] MEDS: INSULIN GLARGINE,HUM.REC.ANLOG 100 UNIT/ML INSULN.PEN 10 UNIT SUBCUT (21:11)
[2024-08-18] VITALS (8 sets, daily range): BP systolic 103–139; BP diastolic 65–82; PULSE 78–106; RESP 18–20; TEMP 36.6–36.9; O2SAT 90–96
[2024-08-18 06:44] LABS: Basophils Absolute Auto 0.03 K/uL (0.00-0.30); Basophils Percent Auto 0.5 % (0.0-3.0); Eosinophils Absolute Auto 0.35 K/uL (0.00-0.50); Eosinophils Percent Auto 5.7 % (0.0-7.0); Hematocrit 41.6 % (33.0-51.0); Hemoglobin* 13.6 gm/dL (12.0-16.0); Immature Granulocytes Abs Auto 0.02 K/uL (0.00-0.30); Immature Granulocytes Pct Auto 0.3 %; Lymphocytes Absolute Auto 2.45 K/uL (0.90-2.90); Lymphocytes Percent Auto 40.2 % (20-44); Mean Corpuscular HGB Conc 33 gm/dL (32-36); Mean Corpuscular Hemoglobin 30 pg (26-34); Mean Corpuscular Volume 91 fL (80-100); Monocytes Percent Auto 16.3 % (0.0-11.0); Platelet Count* 119 K/uL (140-440); RDW Coefficient of Variation % 15.3 % (11.5-15.5); Red Blood Count 4.56 m/uL (4.00-5.20); Slide Review Reflex No; White Blood Count* 6.09 K/uL (4.50-11.00)
[2024-08-18 06:46] LABS: Albumin* 3.3 g/dL (3.3-5.0); Chloride* 98 mmol/L (96-114)
[2024-08-18 06:47] LABS: Potassium* 3.6 mmol/L (3.6-5.1); Sodium* 133 mmol/L (135-149)
[2024-08-18 06:49] LABS: Blood Urea Nitrogen* 20 mg/dL (7-30); Creatinine* 0.5 mg/dL (0.5-1.5); Estimated Glomerular Filt Rate 96 ml/min
[2024-08-18 06:50] LABS: Alanine Aminotransferase* 60 U/L (4-35); Alkaline Phosphatase* 129 U/L (40-150); Anion Gap 7 mEq/L (7-15); Aspartate Amino Transferase* 87 U/L (12-35); Bilirubin Direct* 0.3 mg/dL (0.0-0.5); Bilirubin Total* 0.5 mg/dL (0.1-1.5); Calcium* 8.6 mg/dL (8.4-10.6); Carbon Dioxide* 28 mmol/L (20-32); Glucose* 116 mg/dL (60-115); Total Protein* 6.9 g/dL (6.0-8.3)
--- NOTE | 2024-08-18 06:50 | PC.NURSE ---
?End of shift report [id number]: VSS. Afebrile. Denies pain. Gil catheter is intact and patent. Pt has left restricted extremity band in place. Tolerating Q2H repos. Pt is resting in bed, bed alarm on, call light within reach.?
[2024-08-18 07:04] LABS: C Reactive Protein* 12.6 mg/dL (0.5-1.0)
[2024-08-18] MEDS: ONDANSETRON 2 MG/ML inj 4 MG IVP (08:18)
[2024-08-18] MEDS: POTASSIUM CHLORIDE 10 MEQ CAPSULE ER 20 MEQ PO ×2 (08:20→21:12)
[2024-08-18] MEDS: DIVALPROEX SODIUM ER TAB 250 MG 750 MG PO ×2 (08:23→21:12)
[2024-08-18] MEDS: PRIMIDONE 50 MG TABLET PO ×2 (08:24→14:16)
[2024-08-18] MEDS: DIGOXIN 125 MCG TABLET PO (08:24)
[2024-08-18] MEDS: ACETAMINOPHEN 500 MG TABLET 1000 MG PO (08:24)
[2024-08-18] MEDS: PREGABALIN 100 MG CAPSULE PO (08:25)
[2024-08-18] MEDS: EMPAGLIFLOZIN 10 MG TABLET PO (08:25)
[2024-08-18] MEDS: SODIUM CHLORIDE 0.9 % (FLUSH) 10 ML SYRINGE 5 ML IVF ×2 (08:25→21:13)
[2024-08-18] MEDS: TORSEMIDE 20 MG TABLET PO (08:25)
[2024-08-18] MEDS: METOPROLOL TARTRATE 25 MG TABLET 50 MG PO ×2 (08:25→21:12)
[2024-08-18] MEDS: DOXYCYCLINE HYCLATE 100 MG PO ×2 (08:25→21:11)
[2024-08-18] MEDS: APIXABAN 5 MG TABLET PO ×2 (08:25→21:12)
--- NOTE | 2024-08-18 11:53 | PC.SOCIAL ---
Addendum entered and electronically signed by Jennifer Jansen LCSW 08/18/24 15:47: [facility]. SW learned from Elissa at [facility] that they are also reviewing. Elissa states that as long as patient hasn't been hospitalized or at a SNF since 05/26 that patient's coverage for Medicare benefits has reset. Elissa emailed saying that they can accept patient on 08/19 and need her there prior to 1400. SW spoke with patient about options of [facility] or [facility]. Patient states she thinks [facility] and would like SW to talk with her . SW updated her about her Medicare coverage resetting. SW called Pratik and discussed the options between [place] and [facility]. Pratik states that they would like to give [facility] a try. SW discussed the Medicare coverage reset and transportation. SW discussed the options of him transporting or [facility]. states he feels he can bring her, but is unsure how she will be in the morning. SW explained he can think about it if he would like and let an RN know if he makes a decision tonight. SW also discussed if they aren't happy there, that they could always request to transfer. SW confirmed with Elissa that patient and would like to accept. [facility]. JAZIEL spoke with Phyllis at [facility] who states that she would have a LTC bed available on and that patient could go there and then transition to SNF when a bed is available. SW let Phyllis know that patient is ready for discharge now so we can't wait until . JAZIEL did ask about transferring if patient wanted and Phyllis states it is fairly easy if there is availability. Original Note: Discharge planning: JAZIEL met with patient and her to discuss where SW can send referrals to. Patient and would like [facility] as their first choice and then state [facility] in [place] as well as [facility]. JAZIEL sent referrals to [facility] with [facility] for placement at [facility] and [place]. SW sent referral to [facility]. SW received call from who states that a referral can also be sent to [facility] in [place]. SW sent referral to [facility]. SW is waiting to hear back.
--- NOTE | 2024-08-18 15:49 | PM.IMPN1 ---
Assessment and Plan Assessment and plan (1) Metabolic encephalopathy: Problem comment: Combination of acute illness with fever and polypharmacy. Continue to review and reduce psychoactive medications. May need to consult her Neurologist. History of elevated ammonia thought secondary to Depakote. Check level. Neurologist found a normal Depakote level on blood testing 07/09/2024 according to 08/16 I agree this is likely a combination of acute febrile illness, likely UTI, and recent increase in psychoactive medications. Additional primidone dose that was recently added has been stopped, and her morning primidone has been decreased to half the usual dose. Monitor. Patient is not hypoglycemic. I think less likely is postictal state especially since she has had symptoms for a month that of only recently worsened, and has not had any known recent seizures. 08/17 Some improvement. Will trial splitting dose of primidone. 08/18 Continues to improve. Continue current dose of primidone (lower than outpatient dosing). Okay to d/c to [facility] tomorrow. Status: Acute (2) Fever: Problem comment: Onset 08/15, no fever since yesterday evening. Probably due to UTI. RESOLVED Status: Acute (3) Acute UTI: Problem comment: Onset 08/15. Urine culture shows pansensitive Ecoli, blood cultures no growth to date, continue ceftriaxone x 3 days total. 08/18 ceftriaxone day 2/3. Status: Acute (4) Tremor: Problem comment: On primidone. Her profound sleepiness has developed sense primidone dose was increased. Primidone now at lower dose. Tremor appears well controlled on lower dose. Status: Acute (5) Physical debility: Problem comment: Profound physical disability due to deconditioning, sedation, acute illness, sedentary life. She will need to make significant progress to return to being able to walk with a walker and lives with her Continue PT and OT. Rehab tomorrow. Status: Acute (6) Polypharmacy: Problem comment: Continue to review and deprescribed if possible Status: Acute (7) Weakness: Problem comment: Suspect multifactorial secondary to febrile illness, UTI, polypharmacy, primidone Status: Acute (8) Seizure disorder: Problem comment: -Epilepsy controlled with Depakote and primidone for years and her last known seizure was many years ago Status: Chronic (9) Atrial fibrillation: Problem comment: Eliquis for anticoagulation. Digoxin and metoprolol for rate control. Diltiazem stopped. Status: Acute (10) Chronic anticoagulation: Problem comment: On Eliquis for AFib. Also on aspirin without history of [place], stent, stroke. Stop aspirin. Status: Acute (11) Abnormal LFTs: Problem comment: Suspect SILVA. Not clear that she has had workup for this. Recheck in the morning. Liver dysfunction maybe contributing to prolonging effects of primidone. Status: Acute (12) Diabetes mellitus: Problem comment: 08/15 reports this is been well controlled. Blood sugars typically in the low 100s. Elevated blood sugar today with onset of fever and illness. 08/16 point of care glucoses are 160s to 200. This is within inpatient goal to prevent hypoglycemia. Continue current regimen. 08/17 POC glucoses 125-212. Continue current regimen. 08/17 POC glucoses within inpatient goal, continue current regimen. Status: Acute (13) Obstructive sleep apnea: Problem comment: Home CPAP? Status: Acute Subjective Time Seen by Provider: 08:05 Date Seen: 08/18/24 Interval history: Kisha denies complaints, denies dyspnea or CP. Tremors are not problematic today. Exam Narrative: Exam Narrative: General: No acute distress. Sitting up in the bedside chair, awake, sleepy, oriented x 2 (not day). No pallor. No jaundice. Oropharynx: Clear. Mucous membranes moist. Cardiovascular: Irregularly irregular. No murmurs, gallops, or rubs. Respiratory: Clear to auscultation bilaterally. No wheezes or crackles. Extremities: No lower extremity edema. Const: Vital Signs, click to edit/add: Vital Signs - 24 hr 08/17/24 15:55 08/17/24 19:00 08/17/24 23:00 Temperature 97.3 F L 99 F Pulse Rate 104 H Pulse Rate [Pulse Oximeter] 100 89 Respiratory Rate 18 20 Blood Pressure [Ri ght Arm] 125/46 L 104/68 Pulse Oximetry 93 94 Oxygen Delivery Me thod Room Air Room Air 08/17/24 23:00 08/17/24 23:00 08/17/24 23:00 Temperature Pulse Rate 91 Pulse Rate [Pulse Oximeter] 89 Respiratory Rate 20 20 Blood Pressure [Ri ght Arm] Pulse Oximetry 94 Oxygen Delivery Me thod Room Air 08/18/24 03:00 08/18/24 07:00 08/18/24 07:00 Temperature 98.4 F Pulse Rate Pulse Rate [Pulse Oximeter] 96 106 H Respiratory Rate 18 18 Blood Pressure [Ri ght Arm] 127/71 139/82 Pulse Oximetry 94 96 96 Oxygen Delivery Me thod Room Air Room Air Room Air 08/18/24 07:00 08/18/24 08:24 08/18/24 14:23 Temperature 97.8 F Pulse Rate 100 106 H Pulse Rate [Pulse Oximeter] 91 Respiratory Rate 18 Blood Pressure [facility]] 103/65 Pulse Oximetry 95 Oxygen Delivery Me thod Room Air Labs Labs: Laboratory Results - last 24 hr 08/18/24 06:15 WBC 6.09 RBC 4.56 Hgb 13.6 Hct 41.6 MCV 91 MCH 30 MCHC 33 RDW Coeff of Valerie 15.3 Plt Count 119 L Neut % (Auto) 37.0 L Lymph % (Auto) 40.2 [place] % (Auto) 16.3 H Eos % (Auto) 5.7 Baso % (Auto) 0.5 Neut # (Auto) 2.30 Lymph # (Auto) 2.45 [place] # (Auto) 1.00 H Eos # (Auto) 0.35 Baso # (Auto) 0.03 Abs Immat Gran (auto) 0.02 Imm/Tot Granulo (auto) 0.3 Sodium 133 L Potassium 3.6 Chloride 98 Carbon Dioxide 28 Anion Gap 7 BUN 20 Creatinine 0.5 Estimated Creat Clear 43.40 Estimated GFR 96 Glucose 116 H Calcium 8.6 Total Bilirubin 0.5 Direct Bilirubin 0.3 AST 87 H ALT 60 H Alkaline Phosphatase 129 C-Reactive Protein 12.6 H Total Protein 6.9 Albumin 3.3
[2024-08-18] MEDS: cefTRIAXone 1 GM in 0.9 % SODIUM CHLORIDE Mini-bag 100 ML IVPB (17:52)
[2024-08-18] MEDS: PREGABALIN 50 MG CAPSULE PO ×2 (19:10→21:12)
--- NOTE | 2024-08-18 19:23 | PC.NURSE ---
The patient is pleasant and orientated. VSS on RA, no reports of pain this shift. Appetite is reassuring. Gil is patent and draining. Ax1 RW, patients visited today. Shelbi KUMAR BSN
[2024-08-18] MEDS: ATORVASTATIN CALCIUM 10 MG TABLET 20 MG PO (21:12)
[2024-08-18] MEDS: INSULIN ASPART 100 UNIT/ML SUBCUT (21:14)
[2024-08-18] MEDS: INSULIN GLARGINE,HUM.REC.ANLOG 100 UNIT/ML INSULN.PEN 10 UNIT SUBCUT (21:16)
[2024-08-19] VITALS (7 sets, daily range): BP systolic 112–134; BP diastolic 60–86; PULSE 84–111; RESP 14–20; TEMP 36.4–36.8; O2SAT 90–95
[2024-08-19 06:16] LABS: Basophils Absolute Auto 0.04 K/uL (0.00-0.30); Basophils Percent Auto 0.6 % (0.0-3.0); Eosinophils Absolute Auto 0.34 K/uL (0.00-0.50); Eosinophils Percent Auto 5.5 % (0.0-7.0); Hematocrit 42.8 % (33.0-51.0); Hemoglobin* 14.1 gm/dL (12.0-16.0); Immature Granulocytes Abs Auto 0.02 K/uL (0.00-0.30); Immature Granulocytes Pct Auto 0.3 %; Lymphocytes Percent Auto 50.5 % (20-44); Mean Corpuscular HGB Conc 33 gm/dL (32-36); Mean Corpuscular Hemoglobin 30 pg (26-34); Mean Corpuscular Volume 91 fL (80-100); Monocytes Percent Auto 13.1 % (0.0-11.0); Platelet Count* 129 K/uL (140-440); RDW Coefficient of Variation % 15.1 % (11.5-15.5); Red Blood Count 4.71 m/uL (4.00-5.20); White Blood Count* 6.18 K/uL (4.50-11.00)
[2024-08-19 06:20] LABS: Slide Review Reflex No
[2024-08-19 06:25] LABS: Albumin* 3.2 g/dL (3.3-5.0); Chloride* 99 mmol/L (96-114)
[2024-08-19 06:26] LABS: Potassium* 3.8 mmol/L (3.6-5.1); Sodium* 135 mmol/L (135-149)
[2024-08-19 06:28] LABS: Blood Urea Nitrogen* 17 mg/dL (7-30); Creatinine* 0.5 mg/dL (0.5-1.5); Estimated Glomerular Filt Rate 96 ml/min
[2024-08-19 06:29] LABS: Alanine Aminotransferase* 50 U/L (4-35); Alkaline Phosphatase* 139 U/L (40-150); Anion Gap 7 mEq/L (7-15); Aspartate Amino Transferase* 66 U/L (12-35); Bilirubin Direct* 0.3 mg/dL (0.0-0.5); Bilirubin Total* 0.4 mg/dL (0.1-1.5); Calcium* 8.8 mg/dL (8.4-10.6); Carbon Dioxide* 29 mmol/L (20-32); Glucose* 115 mg/dL (60-115)
--- NOTE | 2024-08-19 06:59 | PC.NURSE ---
[id number]: Pt pleasant, alert and oriented. VSS. Left arm restricted. Tele A fib with NVRBonita Gil patent and draining. Pt in bed, appears to be resting, call light within reach.?
[2024-08-19] MEDS: TORSEMIDE 20 MG TABLET PO (07:59)
[2024-08-19] MEDS: PRIMIDONE 50 MG TABLET PO (07:59)
--- NOTE | 2024-08-19 08:15 | PM.DS1 ---
DS: Providers Provider Time Seen by Provider: 08:29 Date Seen: 08/19/24 Date of admission: 08/16/24 00:39 Primary care physician: Chele Mena MD Admitting Clinician: Guillermo Regalado MD Consults: 08/16/24 00:39 Consult to Occupational Therapy [CONS] Routine Comment: Reason(s) for OT Consult:: Evaluate and Treat Any Restrictions?:: No Restrictions Consult to Physical Therapy [CONS] Routine Comment: Reason(s) for PT Consult:: Evaluate and Treat Any Restrictions?:: No Restrictions Consult to Stoker Mechanic [CONS] Routine Comment: Reason for Consult:: Discharge Planning Needs Attending Physician on discharge: Alba Gray MD Date of Discharge: 08/19/24 DS: Diagnosis Discharge Diagnosis (1) Metabolic encephalopathy: Status: Acute Problem details: Combination of acute illness with fever and polypharmacy. Continue to review and reduce psychoactive medications. May need to consult her Neurologist. History of elevated ammonia thought secondary to Depakote. Check level. Neurologist found a normal Depakote level on blood testing 07/09/2024 according to 08/16 I agree this is likely a combination of acute febrile illness, likely UTI, and recent increase in psychoactive medications. Additional primidone dose that was recently added has been stopped, and her morning primidone has been decreased to half the usual dose. Monitor. Patient is not hypoglycemic. I think less likely is postictal state especially since she has had symptoms for a month that of only recently worsened, and has not had any known recent seizures. 08/17 Some improvement. Will trial splitting dose of primidone. 08/18 Continues to improve. Continue current dose of primidone (lower than outpatient dosing). Okay to d/c to [facility] tomorrow. 08/19 Alert and talkative today. Metabolic encephalopathy resolved. D/c to [facility]hab today. (2) Fever: Status: Acute Problem details: Onset 08/15, no fever since yesterday evening. Probably due to UTI. RESOLVED (3) Acute UTI: Status: Acute Problem details: Onset 08/15. Urine culture shows pansensitive Ecoli, blood cultures no growth to date, continue ceftriaxone x 3 days total. 08/18 ceftriaxone day 2/3. 08/19 last dose of ceftriaxone now before discharge (4) Tremor: Status: Acute Problem details: On primidone. Her profound sleepiness has developed sense primidone dose was increased. Primidone now at lower dose. Tremor appears well controlled on lower dose. (5) Physical debility: Status: Acute Problem details: Profound physical disability due to deconditioning, sedation, acute illness, sedentary life. She will need to make significant progress to return to being able to walk with a walker and lives with her Continue PT and OT. Rehab today. (6) Polypharmacy: Status: Acute Problem details: Made some changes this hospital stay: Decreased primidone doses; stopped diltiazem, increased metoprolol; stopped aspirin Continue to review and deprescribed if possible (7) Weakness: Status: Acute Problem details: Suspect multifactorial secondary to febrile illness, UTI, polypharmacy, primidone Continue PT/OT at rehab (8) Seizure disorder: Status: Chronic Problem details: -Epilepsy controlled with Depakote and primidone for years and her last known seizure was many years ago (9) Atrial fibrillation: Status: Acute Problem details: Eliquis for anticoagulation. Digoxin and metoprolol for rate control. Diltiazem stopped. (10) Chronic anticoagulation: Status: Acute Problem details: On Eliquis for AFib. Also on aspirin without history of AL, stent, stroke. Stop aspirin. (11) Abnormal LFTs: Status: Acute Problem details: Suspect SILVA. Not clear that she has had workup for this. LFTs stable. Liver dysfunction maybe contributing to prolonging effects of primidone. (12) Diabetes mellitus: Status: Acute Problem details: 08/15 reports this is been well controlled. Blood sugars typically in the low 100s. Elevated blood sugar today with onset of fever and illness. 08/16 point of care glucoses are 160s to 200. This is within inpatient goal to prevent hypoglycemia. Continue current regimen. 08/17 POC glucoses 125-212. Continue current regimen. 08/18 POC glucoses within inpatient goal, continue current regimen. 08/19 POC glucoses within inpatient goal 130-190s. Continue outpatient regimen for d/c to SNF. Check POC glucose once a day in am. (13) Obstructive sleep apnea: Status: Acute Problem details: Use Home CPAP if available DS: Summary Hospital Course Hospital Course: Per H&P: Kisha Gandara is a 78 year old female with seizure disorder, sleep apnea, history of pneumonia, heart failure, AFib, diabetes, breast cancer, progressive physical disability was admitted to the hospital for worsening mental status and physical disability at home. Recent history: 6 months ago patient was living independently with her but walking with a walker. She had was quite deconditioned but managing to stay independent with her 's help. She developed hypoxic respiratory failure and was hospitalized at [facility] the 2nd week of February 2024 with community-acquired pneumonia, heart failure and AFib with RVR. She was discharged to [facility] for rehabilitation. She was admitted to [facility] on March 25 to March 28 with hypotension thought secondary to excessive medication, hyperkalemia and deconditioning. She was discharged back to [facility] with blood pressure medications reduced. She continued at [facility] for 2 more months until the beginning of May when she was discharged home with her . She was getting home OT and PT and eventually transition to outpatient OT and PT. she continued to be quite weak and deconditioned and required standby assistance when she would walk with a walker. On July 09 she saw her neurologist. At that visit it was noted that her tremors were quite a bit worse and becoming more disabling for her. Because of this her primidone was increased from 250 mg in the morning to 250 mg the morning and 125 mg at noon. In the 5 weeks since that time her family has noted that she has become more sleepy and weaker. She is having progressive problems with walking. Especially in the last week her family notes that she is hard to arouse and will only arouse for tender 15 seconds before falling asleep. She is no longer strong enough to stand and walk with a walker even with assistance. Early this morning she was seen in the emergency department where she underwent evaluation including head CT, chest abdomen and pelvis CT and laboratory evaluation. This was all unremarkable including a urinalysis. Later this morning her family noted that she had a low-grade fever and because of this she was brought back to the emergency department. She continues to appear weaker. In the emergency department this evening she was found to have a low-grade fever with a newly abnormal urinalysis tachycardia and hypoxia. Her mental status was markedly abnormal. She was profoundly weak. No other obvious change was identified. Specifically she had no focal neurologic problems, no respiratory symptoms and no new gastrointestinal symptoms. It was difficult to assess urinary symptoms as she is chronically incontinent. Kisha remained sleepy, but improving over the first few hospital days. Yesterday and today she has been alert and participating in therapies. Medications have been adjusted as above. Please see diagnoses above for full details. Kisha is discharged to [facility] today in improved condition. Time Spent with Patient Time attestation: Total time spent providing and/or coordinating discharge services: Today I spent 40 minutes seeing and discharging the patient, reviewing [facility] notes/diagnostics/labs, discussing the care plan with our care team that includes social work, PT/OT, pharmacy, RT, halfway and documenting my impressions and plan in the medical record. Exam Narrative: Exam Narrative: General: No acute distress. Sitting up in the bedside chair, awake, alert, oriented. No pallor. No jaundice. Oropharynx: Clear. Mucous membranes moist. Cardiovascular: Irregularly irregular. No murmurs, gallops, or rubs. Respiratory: Clear to auscultation bilaterally. No wheezes or crackles. Extremities: No lower extremity edema. Const: Vital Signs, click to edit/add: Vital Signs - 24 hr 08/18/24 08:24 08/18/24 14:23 08/18/24 15:00 Temperature 97.8 F Pulse Rate 106 H Pulse Rate [Pulse Oximeter] 91 Respiratory Rate 18 18 Blood Pressure [Ri ght Arm] 103/65 Pulse Oximetry 95 96 Oxygen Delivery Tn thod Room Air Room Air 08/18/24 15:00 08/18/24 16:00 08/18/24 19:44 Temperature 97.9 F Pulse Rate 85 Pulse Rate [Pulse Oximeter] 91 84 Respiratory Rate 18 20 Blood Pressure [Ri ght Arm] 112/72 Pulse Oximetry 94 Oxygen Delivery Tn thod Room Air 08/18/24 23:00 08/18/24 23:00 08/19/24 01:30 Temperature 98.2 F Pulse Rate 78 Pulse Rate [Pulse Oximeter] 92 Respiratory Rate 16 Blood Pressure [Ri ght Arm] 128/78 Pulse Oximetry 90 90 Oxygen Delivery Tn thod Room Air Room Air 08/19/24 01:30 08/19/24 04:15 08/19/24 08:07 Temperature 97.5 F L 97.5 F L Pulse Rate Pulse Rate [Pulse Oximeter] 84 89 99 Respiratory Rate 20 18 14 Blood Pressure [Ri ght Arm] 116/69 134/86 Pulse Oximetry 92 95 Oxygen Delivery Me thod Room Air Room Air DS: Data Data Completed and Pending Completed studies during hospitalization: 08/15/2024 12:51 a.m. EKG: Atrial fibrillation, 95 beats per minute, left axis deviation, nonspecific T-wave abnormality. 08/15/2024 9:16 p.m. EKG: Atrial fibrillation with rapid ventricular response, 105 beats per minute, left axis deviation, inferior infarct, age undetermined. 08/16/2024 4:11 a.m. EKG: Atrial fibrillation with rapid ventricular response, 135 beats per minute, left axis deviation, inferior infarct, age undetermined. Ordering Physician: Trice Braun M.D. Date of Service: 08/15/24 Procedure(s): XR chest 2V Accession Number(s): [id number] cc: Chele Mena M.D.; Trice Braun M.D.~ For Patients: As a result of the Cures Act, medical imaging exams and procedure reports are released immediately into your electronic medical record. You may view this report before your referring provider. If you have questions, please contact your health care provider. Indication: Altered mental status Technique: Two views of the chest Comparison: Chest radiograph performed 03/21/2024 Findings/Impression: Cardiomegaly and diffuse pulmonary haziness with prominent interstitial markings, concerning for pulmonary edema or atypical/viral pneumonia. Dictated by Subhash Gutierrez MD @ 08/15/2024 2:51:47 AM (Electronically Signed) Ordering Physician: Trice Braun M.D. Date of Service: 08/15/24 Procedure(s): CT head/brain wo con Accession Number(s): [id number] cc: Chele Mena M.D.; Trice Braun M.D.~ For Patients: As a result of the Cures Act, medical imaging exams and procedure reports are released immediately into your electronic medical record. You may view this report before your referring provider. If you have questions, please contact your health care provider. Indication: Altered mental status, anticoagulated Technique: Noncontrast CT through the head with multiplanar reformats Comparison: None Findings: Brain: No acute hemorrhage. No acute infarct. No significant mass effect or midline shift. No gross evidence of a mass lesion or cerebral edema. Moderate chronic microvascular ischemic disease and global parenchymal volume loss. Ventricles: No acute abnormality appreciated. Orbits, sinuses, mastoids: No acute abnormality appreciated. Calvarium and soft tissues: No acute abnormality appreciated. Impression: No acute abnormality appreciated. Please note that all CT scans at this facility use dose modulation, iterative reconstruction, and/or weight-based dosing when appropriate to reduce radiation dose to as low as reasonably achievable. Dictated by Subhash Gutierrez MD @ 08/15/2024 2:52:49 AM (Electronically Signed) Ordering Physician: Trice Braun M.D. Date of Service: 08/15/24 Procedure(s): CT chest abdomen pelv w con Accession Number(s): [id number] cc: Chele Mena M.D.; Trice Braun M.D.~ For Patients: As a result of the Cures Act, medical imaging exams and procedure reports are released immediately into your electronic medical record. You may view this report before your referring provider. If you have questions, please contact your health care provider. INDICATION: Abdominal distension, weakness, SOB. TECHNIQUE: CT chest, abdomen and pelvis acquired 98 cc Isovue 370 IV contrast. COMPARISON: None. FINDINGS: CHEST: Cardiovascular structures: Heart size is normal. Thoracic aorta and main pulmonary artery are normal in caliber. Atherosclerotic calcifications of the coronary arteries. Atherosclerotic calcifications of the aorta and branch vessels. Mediastinum and khalif: No mass or pathologic adenopathy. Lungs and pleura: Bilateral subsegmental atelectasis. No suspicious nodules, infiltrates, or effusions. Chest wall and axilla: No mass or adenopathy. Bilateral breast implants. The left implant appears smaller than the right with calcifications, likely sequelae of prior rupture. Bones: No acute or suspicious lesions. ABDOMEN AND PELVIS: Liver: Unremarkable. Gallbladder and bile ducts: Cholecystectomy. Pancreas: Unremarkable. Spleen: Unremarkable. Adrenal glands: Unremarkable. Kidneys: Cysts and subcentimeter hypodense lesions too small to characterize, possibly cysts. Possible prior left partial nephrectomy. No hydronephrosis or obstructive urolithiasis. GI tract: Small hiatal hernia. Normal caliber bowel. No secondary signs of appendicitis. Colonic diverticuli, but no definite acute diverticulitis. Vascular structures: Unremarkable. Lymph nodes: Unremarkable. Peritoneum/Retroperitoneum/Abdominal Wall: Unremarkable. No free air or significant free fluid. Pelvic Organs: Bladder is collapsed with catheter in place. Hysterectomy. Bones and superficial soft tissues: No acute or suspicious lesions. IMPRESSION: 1. No definite acute findings to explain the patient`s symptoms. 2. 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 Please note that all CT scans at this facility use dose modulation, iterative reconstruction, and/or weight-based dosing when appropriate to reduce radiation dose to as low as reasonably achievable. Dictated by Mitch Dang MD @ 08/15/2024 4:08:25 AM (Electronically Signed) Ordering Physician: Mili Mcfarlane M.D. Date of Service: 08/15/24 Procedure(s): XR chest 1V portable Accession Number(s): [id number] cc: Chele Mena M.D.; Mili Mcfarlane M.D.~ For Patients: As a result of the Cures Act, medical imaging exams and procedure reports are released immediately into your electronic medical record. You may view this report before your referring provider. If you have questions, please contact your health care provider. INDICATION: Weakness and fever TECHNIQUE: Chest 1 views. COMPARISON: Chest radiograph on August 15, 2024 at 2:[address] chest, abdomen and pelvis on August 15, 2024. FINDINGS: Cardiovasculature and mediastinum: Cardiomegaly, stable. Stable mediastinal contours. Lungs and pleural spaces: Similar appearance of the lungs with mild bilateral diffuse interstitial prominence. No new lung abnormality. No sign of infiltrate or mass. No sign of pleural effusion. No pneumothorax. Bones and soft tissues: No significant findings. IMPRESSION: Compared to same day chest radiograph, similar appearance of the lungs with mild bilateral diffuse interstitial prominence which may reflect pulmonary edema and/or atypical infection. No new lung abnormality. Dictated by Tim Chen MD @ 08/15/2024 10:36:27 PM (Electronically Signed) Labs on day of discharge: Labs from last 24 hours 08/19/24 05:55 WBC 6.18 RBC 4.71 Hgb 14.1 Hct 42.8 MCV 91 MCH 30 MCHC 33 RDW Coeff of Valerie 15.1 Plt Count 129 L Neut % (Auto) 30.0 L Lymph % (Auto) 50.5 H [place] % (Auto) 13.1 H Eos % (Auto) 5.5 Baso % (Auto) 0.6 Neut # (Auto) 1.90 Lymph # (Auto) 3.10 H [place] # (Auto) 0.80 Eos # (Auto) 0.34 Baso # (Auto) 0.04 Abs Immat Gran (auto) 0.02 Imm/Tot Granulo (auto) 0.3 Sodium 135 Potassium 3.8 Chloride 99 Carbon Dioxide 29 Anion Gap 7 BUN 17 Creatinine 0.5 Estimated Creat Clear 43.40 Estimated GFR 96 Glucose 115 Calcium 8.8 Total Bilirubin 0.4 Direct Bilirubin 0.3 AST 66 H ALT 50 H Alkaline Phosphatase 139 C-Reactive Protein 6.0 H Total Protein 7.0 Albumin 3.2 L Preliminary micro results at discharge 08/15/24 20:34 Blood Culture - Preliminary Blood NO GROWTH AFTER 72 HOURS 08/15/24 20:52 Blood Culture - Preliminary Blood NO GROWTH AFTER 72 HOURS Discharge Plan Discharge Disposition: Xfer [facility] Discharge Location: [facility] Date of Admission: 08/16/24 00:39 Attending Provider on Discharge: Alba Gray Primary Care Provider: Chele Mena Anticipated Discharge Date/Time: 08/19/24 11:00 Discharge Medications: New primidone 50 mg Tablet 50 mg PO DAILY@08,12 Qty: 60 0RF Continued pregabalin 50 mg capsule 50 mg PO .6 Pm, 10PM cholecalciferol (vitamin D3) 25 mcg (1,000 unit) capsule 25 mcg PO DAILY Fish Oil 100-160-1,000 mg capsule 1 cap PO DAILY multivitamin with minerals Tablet 1 tab PO DAILY divalproex 250 mg tablet extended release 24 hr 750 mg PO BID pregabalin [Lyrica] 100 mg capsule 100 mg PO QAM digoxin 250 mcg (0.25 mg) tablet 250 mcg PO DAILY Qty: 90 3RF potassium chloride 20 mEq tablet extended release 20 meq PO BID Qty: 60 2RF torsemide 20 mg tablet 20 mg PO DAILY@0800 Qty: 90 3RF acetaminophen 500 mg Tablet 1,000 mg PO Q6H PRNQty: 120 0RF atorvastatin 20 mg tablet 20 mg PO HS insulin glargine [Lantus Solostar U-100 Insulin] 100 unit/mL (3 mL) Insulin Pen 10 unit subcut DAILY@12 Lactobacillus acidophilus 0.5 mg (100 million cell) Tablet 100 mmu cells PO BID Jardiance 10 mg tablet 10 mg PO QDAY Qty: 90 0RF Eliquis 5 mg tablet 5 mg PO BID Qty: 180 3RF Changed metoprolol tartrate 25 mg tablet 50 mg PO BID Qty: 120 3RF Discontinued aspirin 81 mg tablet,delayed release (DR/EC) 81 mg PO DAILY primidone 250 mg tablet 250 mg PO QAM primidone 125 mg tablet 125 mg PO DAILY@12 Rx Instructions: At noon diltiazem HCl 240 mg capsule,extended release 24hr 240 mg PO DAILY Qty: 90 0RF No Action (DME) Accu-Chek Guide test strips Strip See Rx Instructions .Route Qty: 100 3RF Rx Instructions: Patient to test once daily (DME) lancets [Accu-Chek Softclix Lancets] Misc See Rx Instructions .Route Qty: 100 3RF Rx Instructions: Patient to use one time daily (DME) pen needle, diabetic 31 gauge x 3/16 needle See Rx Instructions .ROUTE .COMPLEX Qty: 100 0RF Dose Instruction: USE TO INJECT THREE TIMES DAILY Rx Instructions: USE TO INJECT ONCE DAILY Discharge Orders: Discharge Order (Routine); Ordered 08/19/24 Ordered By: Alba Gray Activity Level: Up with assist and Use Walker Discharge Diet: Regular Follow Up Appointments: Chele Mena MD [Primary Care Provider, Internal Medicine] Forms: [facility] Info Instructions Admit to: SNF Discharge Potential: Fair Length of Stay: <30 days Code Status: Full Code Rehab Potential: Fair Therapy: Physical Therapy and Occupational Therapy Therapy Orders: Evaluate and Treat Oxygen: No Urinary Catheter: No Glucose Checks: daily Lab Orders: digoxin level and LFTs in 1 week Orders are good >30 days: No Signature: Alba Gray MD
[2024-08-19] MEDS: POTASSIUM CHLORIDE 10 MEQ CAPSULE ER 20 MEQ PO (09:26)
[2024-08-19] MEDS: DIVALPROEX SODIUM ER TAB 250 MG 750 MG PO (09:26)
[2024-08-19] MEDS: METOPROLOL TARTRATE 25 MG TABLET 50 MG PO (09:26)
[2024-08-19] MEDS: APIXABAN 5 MG TABLET PO (09:27)
[2024-08-19] MEDS: DIGOXIN 125 MCG TABLET PO (09:27)
[2024-08-19] MEDS: PREGABALIN 100 MG CAPSULE PO (09:27)
[2024-08-19] MEDS: EMPAGLIFLOZIN 10 MG TABLET PO (09:27)
[2024-08-19] MEDS: DOXYCYCLINE HYCLATE 100 MG PO (09:27)
[2024-08-19] MEDS: cefTRIAXone 1 GM in 0.9 % SODIUM CHLORIDE Mini-bag 100 ML IVPB (09:58)
--- NOTE | 2024-08-19 10:16 | PC.NURSE ---
Nurse to Nurse report given to Stephen at [facility].
--- NOTE | 2024-08-19 10:28 | PC.SOCIAL ---
Addendum entered and electronically signed by Jennifer Jansen LCSW 08/19/24 15:09: Elissa contacted JAZIEL asking for a hard script for patient's Pregabalin prescription. JAZIEL obtained this from the provider and secure emailed this to Elissa. Original Note: Discharge planning: SW met with patient's to discuss transportation. states that he feels he could bring her. SW discussed some concerns that nursing has and SW suggest that PT meet with her to determine her mobility today. was agreeable to this plan hearing concerns from nursing. PT met with patient and determined it would be safest for [facility]. Patient and agreeable. SW discussed the cost being around $113 and signed the [facility] form. Transportation set for around 12-1230 and JAZIEL updated Elissa at [facility] about this. JAZIEL completed PAS and sent to Elissa, [id number]. JAZIEL reviewed medicare rights form and provided this to patient. Patient states no other questions or concerns at this time.
--- NOTE | 2024-08-19 12:59 | PC.NURSE ---
End of Shift: Patient pleasant and cooperative, alert and oriented. Patient vitally stable, lungs clear, BS WNL, IV removed,catheter intact, presley removed tip intact. Patient denies pain. Patient washed up in bathroom with OT today. Patient tolerating regular diet, chronically incontinent, no BM. Patient tolerating regular diet, declined lunch. Tele=A.fib. signed belongings sheet and discharge form, patient and had no further questions. Patient left the floor by EMS to [facility] at 1255.
== END 2024-08-19 12:55 | DRG 70 ==
LOC: ED 23:14 → MEDSURG 08-16 00:30
PROVIDERS: Admitting Provider Family Medicine; Emergency Provider Family Medicine; PCP Internal Medicine; Visit Provider Family Medicine
DX: G93.41 Metabolic encephalopathy (principal); A41.9 Sepsis, unspecified organism; N39.0 Urinary tract infection, site not specified; I48.20 Chronic atrial fibrillation, unspecified; R25.1 Tremor, unspecified; G40.909 Epilepsy, unspecified, not intractable, without status epilepticus; E11.65 Type 2 diabetes mellitus with hyperglycemia; G47.33 Obstructive sleep apnea (adult) (pediatric); K75.81 Nonalcoholic steatohepatitis (NASH); E66.01 Morbid (severe) obesity due to excess calories; Z79.01 Long term (current) use of anticoagulants; R53.1 Weakness; K21.9 Gastro-esophageal reflux disease without esophagitis; Z79.82 Long term (current) use of aspirin; Z79.4 Long term (current) use of insulin; E78.5 Hyperlipidemia, unspecified; B96.20 Unspecified Escherichia coli [E. coli] as the cause of diseases classified elsewhere; Z79.899 Other long term (current) drug therapy; N39.498 Other specified urinary incontinence; Z79.84 Long term (current) use of oral hypoglycemic drugs
CPT/HCPCS: 36415; 70450; 71045; 71046; 71260; 74177; 80048; 80053; 80061; 80076; 80162; 81001; 82140; 82803; 82962; 83605; 83735; 83880; 84145; 84443; 84484; 85025; 86140; 87040; 87086; 87631; 93005; 94761; 97110; 97116; 97163; 97165; 97530; 97535; 99284; 99285; A9270; J0696; J1815; J2405; J7050; Q9967

== ENCOUNTER 2024-08-19 12:58 | Outpatient (CLI) | payer MEDICARE, OTHER, SELFPAY | END 2024-08-19 12:59 | disposition home or self-care (01) | LOC: AMB 08-26 12:10 | PROVIDERS: PCP Internal Medicine; Visit Provider Emergency Medicine | DX: R53.1 Weakness (principal); R59.0 Localized enlarged lymph nodes; R62.7 Adult failure to thrive | CPT/HCPCS: A0425; A0428 ==

== ENCOUNTER 2024-09-23 10:31 | Outpatient (CLI) | payer MEDICARE, OTHER, SELFPAY | END 2024-09-23 10:32 | disposition home or self-care (01) | LOC: NFLDREF 10:32 | PROVIDERS: PCP Internal Medicine; Visit Provider Internal Medicine | DX: E11.65 Type 2 diabetes mellitus with hyperglycemia (principal) | CPT/HCPCS: 80053 ==

== ENCOUNTER 2024-10-10 12:08 | Emergency (ER) | payer MEDICARE, OTHER, SELFPAY ==
[2024-10-10] VITALS (24 sets, daily range): BP systolic 104–119; BP diastolic 45–70; PULSE 61–81; RESP 18; TEMP 36; O2SAT 92–98; BMI 46.9
--- OUTSIDE RECORDS SUMMARY | 2024-10-10 12:11 | XMS_ITS | Clinical Summary ---
Author Organization [facility] Address [address] [address] Care Team Providers Care Numerical Control Machine Machinist Name Role Phone Chele Mena MD Primary Care Provider Birgit Whipple MD Unavailable Dragan Ritter MD Unavailable [phone] Birgit Whipple MD Unavailable [phone] Allergies Active Allergy Reactions Criticality Noted Date [...] mg by mouth 2 times daily. Active [place]-3 Fatty Acids (OMEGA-3 FISH OIL PO) Take [...] mouth every morning. 90 capsule 3 07/10/19 25 Active primidone (MYSOLINE) 50 MG tabletIndications: Tremor Take 1 tablet (50 mg) by mouth 2 times daily. 180 tablet 1 10/09/19 25 Active Active Problems Problem Noted Date Diagnosed Date Pneumonia 03/25/2024 Morbid obesity 04/26/2022 Epilepsy 02/10/2014 Encounters Date Type Department Care Team Description 10/08/2024 Orders Only [facility] [address] [place] [address] Birgit Whipple MD Tremor (Primary Dx) 10/08/2024 MyC Medical Advice M Physicians [facility] Epilepsy Care [address], [address] [place] [address] Birgit Whipple MD 09/30/2024 MyC Medical Advice M [facility] Epilepsy Care [address], [address] [place] [address] Birgit Whipple MD from Last 3 Months Immunizations Immunization Administration Dates Next Due Flu, Unspecified 01/25/2018 [id number] Novel Flu 11/17/2009 Hepatitis A (VAQTA)(ADULT 19+) [...] in an abandoned building, in an overnight skilled nursing, or couch-surfing.) Yes 03/26/2024 Are you worried [...] Sex Assigned at Female 04/04/2021 11:57 AM PREFORM PLATE MAKER Legal Sex Female 4:19 AM PREFORM PLATE MAKER Gender Identity Female 04/04/2021 11:57 AM PREFORM PLATE MAKER Sexual Orientation Not on file Last Filed Vital Signs Vital Sign Reading Time Taken Comments Blood Pressure 93/63 07/09/2024 10:22 AM CDT Pulse 56 07/09/2024 10:22 AM CDT Temperature 36.3 C (97.3 F) 07/09/2024 10:22 AM CDT Respiratory Rate 18 03/28/2024 7:27 AM PREFORM PLATE MAKER Oxygen Saturation 96% 03/28/2024 7:27 AM PREFORM PLATE MAKER Inhaled Oxygen Concentration - - Weight 121.1 kg (267 lb) 07/09/2024 10:22 AM CDT per patient Height 162.6 cm (5' 4) 07/09/2024 10:22 AM CDT Body Mass Index 45.83 07/09/2024 10:22 AM CDT Plan of Treatment Upcoming Encounters Date Type Department Care Team (Late st Contact Info) Description 07/13/2025 10:30 AM CDT Office Visit [facility] [address], [address] [place] [address] Birgit Whipple MD [address] [place] [address] Health Maintenance Due Date Last Done Comments ADVANCE CARE PLANNING 1945 ANNUAL REVIEW OF HM ORDERS 1945 DEXA 1945 HF ACTION PLAN 1945 LIPID 1945 TSH W/FREE T4 REFLEX 1945 HEPATITIS C SCREENING 09/01/1963 MEDICARE ANNUAL WELLNESS VISIT 2010 COVID-19 VACCINE ( season) 2024 11/13/2023, 12/12/2022, 08/02/2022, Additional history exists BMP 09/24/2024 03/27/2024, 02/27, 03/25/2024, Additional history exists INFLUENZA VACCINE (#1) 2024 , 12/05/2022, 11/25/2021, Additional history exists ALT 03/26/2025 03/26/2024, /2 10/2024, 04/06/2020 CBC 05/01/2025 05/01/2024, 02/0 08/2024, 03/27/2024, [...] Completed 11/13/2018, 07/26, 10/23/2017, Additional history exists RSV VACCINE Completed 01/23/2023 PHQ-2 (once per calendar year) Completed 07/09/2024, 05/23/2023, 04/26/2022, Additional history exists CT COLONOGRAPHY Discontinued FIT Discontinued FLEX SIG Discontinued HPV VACCINE (No Doses Required) Completed MENINGITIS VACCINE Aged Out No longer eligible based on patient's age to complete this topic sDNA (Cologuard) Discontinued Procedures Procedure Name Priority Date/Time Associated Diagnosis Comments GLUCOSE (OUTREACH) Routine 05/18/2024 10 :17 AM CDT Hypertensive heart disease with heart failure (H) Chronic atrial fibrillation, unspecified (H) DIGOXIN LEVEL Routine 05/18/2024 10:17 AM CDT Hypertensive heart disease with heart failure (H) Chronic atrial fibrillation, unspecified (H) CBC WITH PLATELETS Routine 05/01/2024 6: 03 AM PREFORM PLATE MAKER Anemia, unspecified Essential (primary) hypertension BASIC METABOLIC PANEL Routine 03/27/2024 7:12 AM PREFORM PLATE MAKER COMPREHENSIVE METABOLIC PANEL Routine 03/26/2024 6:26 AM PREFORM PLATE MAKER COLONOSCOPY Routine 09/05/2007 9:35 AM CDT from Last 3 Months or Most Recently Relevant to Health Maintenance Results * (ABNORMAL) Glucose (OUTREACH) (05/18/2024 10:17 AM CDT) Pathologist [facility] Glucose 327(H) 70 - 99 mg/dL 05/18/2024 4:16 PM CDT [facility] Blood STRUCTURE OF RIGHT UPPER LIMB / Unknown Venipuncture / Unknown 05/18/2024 10:17 AM CDT 05/18/2024 12:28 PM CDT [facility] LAB - BLOOD ORDERABLES Final Res ult Performing Organization Address City/[facility]/ZIP Co de Phone Number [facility] [address] [facility], [address] * Digoxin level (05/18/2024 10:17 AM CDT) [facility] Digoxin 0.6 0.6 - 1.2 ng/mL 05/18/2024 3:19 PM CDT [facility] Comment: Therapeutic Range: Adults: 0.6-1.2 ng/mL The reference range for infants (less than 3 mo) is thought to be 3.0-4.0 ng/mL; infants tolerate more digoxin because they have more binding sites and an increased metabolic rate. Blood STRUCTURE OF RIGHT UPPER LIMB / Unknown Venipuncture / Unknown 05/18/2024 10:17 AM CDT 05/18/2024 12:28 PM CDT [facility] LAB - BLOOD ORDERABLES Final Res ult LABORATORY [facility] [address] [facility], [address] [id number] * (ABNORMAL) CBC with platelets (05/01/2024 6:03 AM PREFORM PLATE MAKER) [facility] WBC Count 8.2 4.0 - 11.0 10e3/uL 05/01/2024 9:48 AM PREFORM PLATE MAKER [facility] RBC Count 4.35 3.80 - 5.20 10e6/uL 05/01/2024 9:48 AM PREFORM PLATE MAKER [facility] Hemoglobin 14.0 11.7 - 15.7 g/dL 05/01/2024 9:48 AM PREFORM PLATE MAKER [facility] Hematocrit 44.0 35.0 - 47.0 % 05/01/2024 9:48 AM PREFORM PLATE MAKER [facility] MCV 101(H) 78 - 100 fL 05/01/2024 9:48 AM PREFORM PLATE MAKER [facility] MCH 32.2 26.5 - 33.0 pg 05/01/2024 9:48 AM PREFORM PLATE MAKER [facility] MCHC 31.8 31.5 - 36.5 g/dL 05/01/2024 9:48 AM PREFORM PLATE MAKER [facility] RDW 14.8 10.0 - 15.0 % 05/01/2024 9:48 AM PREFORM PLATE MAKER [facility] Platelet Count 175 150 - 450 10e3/uL 05/01/2024 9:48 AM PREFORM PLATE MAKER [facility] Blood STRUCTURE OF RIGHT UPPER LIMB / Unknown Venipuncture / Unknown 05/01/2024 6:03 AM PREFORM PLATE MAKER 05/01/2024 8:55 AM PREFORM PLATE MAKER us Radha Hauser MD LAB - BLOOD ORDERABLES Final Result [facility] [address] [facility], [address] [id number] * (ABNORMAL) Basic metabolic panel (03/27/2024 7:12 AM PREFORM PLATE MAKER) Sodium 138 135 - 145 mmol/L 03/27/2024 7:35 AM PREFORM PLATE MAKER [facility] Potassium 4.2 3.4 - 5.3 mmol/L 03/27/2024 7:35 AM PREFORM PLATE MAKER [facility] Chloride 100 98 - 107 mmol/L 03/27/2024 7:35 AM PREFORM PLATE MAKER LABORATORY Carbon Dioxide (CO2) 28 22 - 29 mmol/L 03/27/2024 7:35 AM PREFORM PLATE MAKER [facility] Anion Gap 10 7 - 15 mmol/L 03/27/2024 7:35 AM PREFORM PLATE MAKER [facility] Urea Nitrogen 14.8 8.0 - 23.0 mg/dL 03/27/2024 7:35 AM [facility] Creatinine 0.57 0.51 - 0.95 mg/dL 03/27/2024 7:35 AM [facility] GFR Estimate >90 >60 mL/min/1.7 3m2 03/27/2024 7:35 AM [facility] Comment:eGFR calculated [facility] 2020 CKD-EPI equation. Calcium 8.6(L) 8.8 - 10.4 mg/dL 03/27/2024 7:35 AM [facility] Glucose 135(H) 70 - 99 mg/dL 03/27/2024 7:35 AM [facility] Blood STRUCTURE OF RIGHT HAND / Unknown Venipuncture / Unknown 03/27/2024 7:12 AM PREFORM PLATE MAKER 03/27/2024 7:16 AM [facility] Jennifer Trujillo PA-C LAB - BLOOD ORDERABLES Fi nal Result LABORATORY [facility] [address] Lab (1st floor, no room number) [place] [address] * (ABNORMAL) Comprehensive metabolic panel (03/26/2024 6:26 AM [facility]) Sodium 136 135 - 145 mmol/L 03/26/2024 7:03 AM [facility] Potassium 4.7 3.4 - 5.3 mmol/L 03/26/2024 7:03 AM [facility] Carbon Dioxide (CO2) 26 22 - 29 mmol/L 03/26/2024 7:03 AM [facility] Anion Gap 12 7 - 15 mmol/L 03/26/2024 7:03 AM [facility] Urea Nitrogen 23.1(H) 8.0 - 23.0 mg/dL 03/26/2024 7:03 AM [facility] Creatinine 0.79 0.51 - 0.95 mg/dL 03/26/2024 7:03 AM [facility] GFR Estimate 76 >60 mL/min/1.7 3m2 03/26/2024 7:03 AM [facility] Comment:[facility]GFR [facility] CKD-EPI equation. Calcium 8.7(L) 8.8 - 10.4 mg/dL 03/26/2024 7:03 AM [facility] Chloride 98 98 - 107 mmol/L 03/26/2024 7:03 AM [facility] Glucose 109(H) 70 - 99 mg/dL 03/26/2024 7:03 AM [facility] Alkaline Phosphatase 62 40 - 150 U/L 03/26/2024 7:03 AM [facility] AST 42 0 - 45 U/L 03/26/2024 7:03 AM [facility] ALT 20 0 - 50 U/L 03/26/2024 7:03 AM [facility] Protein Total 5.9(L) 6.4 - 8.3 g/dL 03/26/2024 7:03 AM [facility] Albumin 2.8(L) 3.5 - 5.2 g/dL 03/26/2024 7:03 AM [facility] Bilirubin Total 0.3 <=1.2 mg/dL 03/26/2024 7:03 AM [facility] Blood STRUCTURE OF RIGHT HAND / Unknown Venipuncture / Unknown 03/26/2024 6:26 AM PREFORM PLATE MAKER 03/26/2024 6:43 AM PREFORM PLATE MAKER us Al Kavin Salinas MD LAB - BLOOD ORDERABLES Fi nal Result LABORATORY [facility] [address] [facility] Lab (1st floor, no room number) [place] [address], [facility] * COLONOSCOPY (09/05/2007 9:35 AM CDT) [...] oxygen saturations were monitored continuously. The [id number] #[id number] was introduced through the anus and advanced [...] 9:35 AM CDT Binu Kong MD PROCEDURES Final Res ult RADIOLOGY RESULTS from Last 3 Months or Most Recently Relevant to Health Maintenance Insurance MEDICARE MEDICA [facility] MEDICA SELECT SOLUTION Advance Directives For more information, please contact: [phone] * Full Code (Latest Code Status on File) Date Activated Date Inactivated Comments 03/25/2024 5:26 PM 03/28/2024 11:22 AM All basic an d advanced life-sustaining interventions are performed as appropriate Question Answer Comments Code status determined by: Discussion with patie nt/ legal decision maker Care Teams Numerical Control Machine Machinist Relationship Specialty Start Date End Date Chele Mena MD [facility] [address] [place] [address] PCP - General Internal Medicine 11/28/12 Birgit Whipple MD [facility] [address] [place] [address] Neurology 06/16/14 Dragan Ritter MD [facility] [address] [place] [address] Urology 06/10/17 Birgit Whipple MD [address] [place] [id number] Assigned Neuroscience Provider 04/03/20
--- OUTSIDE RECORDS SUMMARY | 2024-10-10 12:11 | XMS_ITS | Encounter Summary ---
Author Organization [facility] Address [address] [place] [address] Care Team Providers Care Customer Success Intern Name Role Phone Chele Mena MD Primary Care Provider Birgit Whipple MD Unavailable [phone] Dragan Ritter MD Unavailable Birgit Whipple MD Unavailable Encounter Details Date Type Department Care Team (Late st Contact Info) Description 06/06/2023 MyC Medical Advice Physicians [facility] Epilepsy Care [address] [facility], [address] [place] [address] Birgit Whipple MD [address] [place], [place] [id number] Social History Tobacco Use Types Packs/Day Years [...] Sex Assigned at Female 04/04/2021 11:57 AM EVS MANAGER Legal Sex Female 4:19 AM EVS MANAGER Gender Identity Female 04/04/2021 11:57 AM EVS MANAGER Sexual Orientation Not on file documented as of this encounter Plan of Treatment Upcoming Encounters Date Type Department Care Team (Late st Contact Info) Description 07/13/2025 10:30 AM CDT Office Visit [facility] [address], [address] [place] [address] Birgit Whipple MD [address] [place] [id number] documented as of this encounter Visit Diagnoses Not on filedocumented in this encounter Additional Health Concerns Infection Onset Date Last Indicated Resolved Time Rule Out COVID-19 03/25/2024 03/25/2024 03/25/2024 2:35 PM EVS MANAGER Assessment Noted Time PHQ-9 Depression Total Score: 3 04/27/19 23 7:00 AM EVS MANAGER documented as of this encounter Care Teams Customer Success Intern Relationship Specialty Start Date End Date Chele Mena MD [facility] [address] [place] [address] PCP - General Internal Medicine 11/28/12 Birgit Whipple MD [facility] [address] [place] [address] Neurology 06/16/14 Dragan Ritter MD [facility] [address] [place] [address] Urology 06/10/17 Birgit Whipple MD [address] [place] [address] Assigned Neuroscience Provider 04/03/20 documented as of this encounter
--- OUTSIDE RECORDS SUMMARY | 2024-10-10 12:11 | XMS_ITS | Encounter Summary ---
Author Organization [facility] Address [address] [place] [address] Care Team Providers Care Veterinarian Poultry Name Role Phone Chele Mena MD Primary Care Provider Birgit Whipple MD Unavailable [phone] Dragan Ritter MD Unavailable [phone] Birgit Whipple MD Unavailable [phone] Encounter Details Date Type Department Care Team (Late st Contact Info) Description 04/15/2024 [facility] Medical Advice M Physicians [facility] Epilepsy Care [address] [facility], [address] [place] [address] Michael [facility] Social History Tobacco Use Types Packs/Day Years [...] in an abandoned building, in an overnight prison, or couch-surfing.) Yes 03/26/2024 Are you worried [...] Sex Assigned at Female 04/04/2021 11:57 AM RESTORER PAPER AND PRINTS Legal Sex Female 4:19 AM RESTORER PAPER AND PRINTS Gender Identity Female 04/04/2021 11:57 AM RESTORER PAPER AND PRINTS Sexual Orientation Not on file documented as of this encounter Plan of Treatment Upcoming Encounters Date Type Department Care Team (Late st Contact Info) Description 07/13/2025 10:30 AM CDT Office Visit M [facility] [address], [address] [place] [address] Birgit Whipple MD [address] [place] [phone] documented as of this encounter Visit Diagnoses Not on filedocumented in this encounter Additional Health Concerns Assessment Noted Time PHQ-9 Depression Total Score: 3 04/27/19 23 7:00 AM RESTORER PAPER AND PRINTS documented as of this encounter Care Teams Veterinarian Poultry Relationship Specialty Start Date End Date Chele Mena MD [facility] [address] [place] [address] PCP - General Internal Medicine 11/28/12 Birgit Whipple MD [facility] [address] [place] [address] Neurology 06/16/14 Dragan Ritter MD [facility] [address] [place] [address] Urology 06/10/17 Birgit Whipple MD [address] [place] [address] Assigned Neuroscience Provider 04/03/20 documented as of this encounter
--- OUTSIDE RECORDS SUMMARY | 2024-10-10 12:11 | XMS_ITS ---
Author Name Interface, [email or web address] Address [address] [place] [address] [address] [address] [facility] Address [address] [facility] [address] [address] Allergies and Adverse Reactions Medication/Group Name Reaction [...] PO 1.0 TABLET(S) daily 019 active 019 Nystatin Topical Powder Topical 1.0 GRAM BID 019 active 019 Lisinopril Oral PO 1.0 TABLET(S) daily 019 active 019 Pregabalin Oral PO 1.0 CAPSULE(S ) TID 019 active Acetaminophen Oral PO 2.0 TABLET(S) as directed active Aspirin Oral PO 1.0 TABLET(S) daily active Primidone Oral PO 1.0 TABLET(S) daily active Simvastatin Oral PO 1.0 TABLET(S) daily active Metoprolol Oral (Tartrate) PO 50.0 MG BID active Problems Diagnosis Status Date of Diagnosis Resolution Date Postoperative seroma (disorder) Active Postoperative wound infection (disorder) Active 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
--- OUTSIDE RECORDS SUMMARY | 2024-10-10 12:11 | XMS_ITS | CCD ---
Author Name Interface, [id number] Address [address] [facility] [address] [address] Organization [facility] Address [address] [facility] [address] [place] [address] Care Team Providers Care Mobile Disc Jockey Name Role Phone Linsey HERNDON, Arin márquez Allergies and Adverse Reactions Medication/Group Name Reaction Severity Date Fenofibric Acid 02/26/2019 lacosamide 02/26/2019 Reason for Visit RC - 6 MOS SCAR RC - 6 MOS SCAR RC Medications Date Name Route Dose Frequency Instructions Start Date End Date Status Divalproex Oral Delayed Release 3.0 tablet,de layed release (/EC) active 2018 Primidone Oral PO 1.0 TABLET(S) daily 2018 active 2018 Insulin Glargine-Lixisena tide Subcutaneous Pen 100 unit-33 mcg/mL sub-Q 0.15 ML as directed 16 units subq at betime 2018 active 2018 Cholecalciferol Oral PO 1.0 TABLET(S) daily 08/11 inactive 2018 Docosahexanoic Acid-Eicosapentan oic Acid Oral 120 mg-180 mg PO 1.0 CAPSULE(S ) daily 08/11 inactive 2018 Metoprolol Oral (Tartrate) PO 50.0 MG BID 2018 active 2018 Aspirin Oral PO 1.0 TABLET(S) daily 2018 active 2018 Pregabalin Oral PO 1.0 CAPSULE(S ) TID 2018 active 2018 Simvastatin Oral PO 1.0 TABLET(S) daily 2018 active 2018 Acetaminophen Oral PO 2.0 TABLET(S) as directed 2018 active 2018 Miscellaneous Drug PO 1.0 TABLET(S) daily 2018 active 2018 Insulin Aspart Subcutaneous Pen sub-Q 8.0 UNIT as directed 8 units TID 08/11 inactive 2018 Nystatin Topical Powder Topical 1.0 GRAM BID 2018 active 2018 Lisinopril Oral PO 1.0 TABLET(S) daily 2018 active Problems Diagnosis Status Date of Diagnosis Resolution Date Body mass index (BMI) 40.0-44.9, adult Inactive Postoperative seroma (disorder) Active Postoperative wound infection (disorder) Active 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
--- OUTSIDE RECORDS SUMMARY | 2024-10-10 12:11 | XMS_ITS | Encounter Summary ---
Author Organization [facility] Address [address] [place] [address] Care Team Providers Care Retail Sales Manager Name Role Phone Chele Mena MD Primary Care Provider Birgit Whipple MD Unavailable [phone] Dragan Ritter MD Unavailable Birgit Whipple MD Unavailable Encounter Details Date Type Department Care Team (Late st Contact Info) Description 09/30/2024 MyC Medical Advice Physicians [facility] [address] [facility], [address] [place] [address] Birgit Whipple MD [address] [place], [place] [address] Social History Tobacco Use Types Packs/Day Years [...] in an abandoned building, in an overnight senior care, or couch-surfing.) Yes 03/26/2024 Are you worried [...] Sex Assigned at Female 04/04/2021 11:57 AM RELIEF DOCKING MASTER Legal Sex Female 4:19 AM RELIEF DOCKING MASTER Gender Identity Female 04/04/2021 11:57 AM RELIEF DOCKING MASTER Sexual Orientation Not on file documented as of this encounter Miscellaneous Notes * Telephone Encounter - Alessandra Adams RN - 10/01/2024 9:26 AM CDT RN placed call to patient. Patient's spouse Pratik answered, C2C on file. Pratik confirmed patient had recent hospital stay due to UTI and altered level of consciousness. At the hospital they adjusted multiple medications to improve her cognition/responsiveness following treating the UTI, including primidone. Inpatient Mds also adjusted BP medications to help with tremors since primidone was decreased. Pratik reports patient is home and still somewhat struggling with sleepiness. RN informed him that this information would be passed on to Dr. Fabian and we can update him via [employer] message of recommendation. Pratik thanked RN for their time and had no additional questions. documented in this encounter Plan of Treatment Upcoming Encounters Date Type Department Care Team (Late st Contact Info) Description 07/13/2025 10:30 AM CDT Office Visit M Physicians [facility] Epilepsy Care [address] [facility], [address] [place] [address] Birgit Whipple MD [address] [place] [phone] documented as of this encounter Visit Diagnoses Not on filedocumented in this encounter Additional Health Concerns Assessment Noted Time PHQ-9 Depression Total Score: 3 04/27/19 23 7:00 AM RELIEF DOCKING MASTER documented as of this encounter Care Teams Retail Sales Manager Relationship Specialty Start Date End Date Chele Mena MD [facility] [address] [place] [address] PCP - General Internal Medicine 11/28/12 Birgit Whipple MD [facility] [address] [place] [address] Neurology 06/16/14 Dragan Ritter MD [facility] [address] [place] [address] Urology 06/10/17 Birgit Whipple MD [address] [place] [address] Assigned Neuroscience Provider 04/03/20 documented as of this encounter
--- OUTSIDE RECORDS SUMMARY | 2024-10-10 12:11 | XMS_ITS | Encounter Summary ---
Author Organization [facility] Address [address] [facility] [place] [address] Care Team Providers Care Beef Skinner Name Role Phone Chele Mena MD Primary Care Provider Birgit Whipple MD Unavailable Dragan Ritter MD Unavailable Birgit Whipple MD Unavailable [phone] Encounter Details Date Type Department Care Team (Late st Contact Info) Description 06/08/2021 MyC Medical Advice Physicians [facility] Ep[facility]psy Care [address], [address] [place] [address] Birgit Whipple MD [address] [place], [place] [address] Social History Tobacco Use Types Packs/Day Years Used Date Smoking Tobacco: Never Smokeless Tobacco: Never Alcohol Use Standard Drinks/Week Comments No 0 (1 standard drink = 0.6 oz pur e alcohol) PHQ-2 Answer Date Recorded PHQ-2 Score 0 03/29/2020 Comments No Sex and Gender Information Value Date Recorded Sex Assigned at Female 04/04/2021 11:57 AM ROBOTIC WELDING OPERATOR Legal Sex Female 4:19 AM ROBOTIC WELDING OPERATOR Gender Identity Female 04/04/2021 11:57 AM ROBOTIC WELDING OPERATOR Sexual Orientation Not on file documented as of this encounter Plan of Treatment Upcoming Encounters Date Type Department Care Team (Late st Contact Info) Description 07/13/2025 10:30 AM CDT Office Visit [facility] [address], [address] [place] [address] Birgit Whipple MD [address] [place] [address] documented as of this encounter Visit Diagnoses Not on filedocumented in this encounter Additional Health Concerns Infection Onset Date Last Indicated Resolved Time Rule Out COVID-19 03/25/2024 03/25/2024 03/25/2024 2:35 PM ROBOTIC WELDING OPERATOR documented as of this encounter Care Teams Beef Skinner Relationship Specialty Start Date End Date Chele Mena MD [facility] [address] [place] [address] PCP - General Internal Medicine 11/28/12 Birgit Whipple MD [facility] [address] [place] [address] Neurology 06/16/14 Dragan Ritter MD [facility] [address] [place] [address] Urology 06/10/17 Birgit Whipple MD [address] [place] [address] Assigned Neuroscience Provider 04/03/20 documented as of this encounter
--- OUTSIDE RECORDS SUMMARY | 2024-10-10 12:11 | XMS_ITS | Encounter Summary ---
Author Organization [facility] Address [address] [facility] [place] [address] Care Team Providers Care Ad Clerk Name Role Phone Chele Mena MD Primary Care Provider Birgit Whipple MD Unavailable Dragan Ritter MD Unavailable Birgit Whipple MD Unavailable Encounter Details Date Type Department Care Team (Late st Contact Info) Description 10/08/2024 Orders Only [facility] [address] [place] [address] Birgit Whipple MD [address] [place] [address] Tremor (Primary Dx) Social History Tobacco Use Types Packs/Day Years [...] in an abandoned building, in an overnight retirement, or couch-surfing.) Yes 03/26/2024 Are you worried [...] Sex Assigned at Female 04/04/2021 11:57 AM CONSULAR OFFICER Legal Sex Female 4:19 AM CONSULAR OFFICER Gender Identity Female 04/04/2021 11:57 AM CONSULAR OFFICER Sexual Orientation Not on file documented as of this encounter Plan of Treatment Upcoming Encounters Date Type Department Care Team (Late st Contact Info) Description 07/13/2025 10:30 AM CDT Office Visit M [facility] [address], [address] [place] [address] Birgit Whipple MD [address] [place] [address] documented as of this encounter Visit Diagnoses Diagnosis Tremor- Primary Abnormal involuntary movements documented in this encounter Additional Health Concerns Assessment Noted Time PHQ-9 Depression Total Score: 3 04/27/19 23 7:00 AM CONSULAR OFFICER documented as of this encounter Care Teams Ad Clerk Relationship Specialty Start Date End Date Chele Mena MD [facility] [address] [place] [address] PCP - General Internal Medicine 11/28/12 Birgit Whipple MD [facility] [address] [place] [address] Neurology 06/16/14 Dragan Ritter MD [facility] [address] [place] [address] Urology 06/10/17 Birgit Whipple MD [address] [place] [address] Assigned Neuroscience Provider 04/03/20 documented as of this encounter
--- OUTSIDE RECORDS SUMMARY | 2024-10-10 12:11 | XMS_ITS | Encounter Summary ---
Author Organization [facility] Address [address] [place] [address] Care Team Providers Care Foxing Painter Name Role Phone Chele Mena MD Primary Care Provider Birgit Whipple MD Unavailable [phone] SoDragan galeas MD Unavailable Birgit Whipple MD Unavailable [phone] Encounter Details Date Type Department Care Team (Latest Contact Info) Description 04/13/2022 External Order Results [facility] [address] [place] [address] Outside, Provider Diabetic polyneuropathy associated with diabetes [...] Sex Assigned at Female 04/04/2021 11:57 AM INFRASTRUCTURE DEVELOPER Legal Sex Female 4:19 AM INFRASTRUCTURE DEVELOPER Gender Identity Female 04/04/2021 11:57 AM INFRASTRUCTURE DEVELOPER Sexual Orientation Not on file documented as of this encounter Plan of Treatment Upcoming Encounters Date Type Department Care Team (Late st Contact Info) Description 07/13/2025 10:30 AM CDT Office Visit [facility] [address], [address] [place] [address] Birgit Whipple MD [address] [place] [address] documented as of this encounter Procedures Procedure Name Priority Date/Time Associated Diagnosis Comments PREGABALIN LEVEL Routine 04/13/2022 3:26 PM INFRASTRUCTURE DEVELOPER 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 us [...] Out COVID-19 03/25/2024 03/25/2024 03/25/2024 2:35 PM INFRASTRUCTURE DEVELOPER documented as of this encounter Care Teams Foxing Painter Relationship Specialty Start Date End Date Chele Mena MD [facility] [address] [place] [address] PCP - General Internal Medicine 11/28/12 Birgit Whipple MD [facility] [address] [place] [address] Neurology 06/16/14 Dragan Ritter MD [facility] [address] [place] [address] Urology 06/10/17 Birgit Whipple MD [address] [place] [address] Assigned Neuroscience Provider 04/03/20 documented as of this encounter
--- OUTSIDE RECORDS SUMMARY | 2024-10-10 12:11 | XMS_ITS ---
Author Name Interface, [id number] lity Address [address] [place] [address] [address] [address] [facility] Address [address] [facility] [address] [address] Allergies and Adverse Reactions Medication/Group Name Reaction [...]
--- OUTSIDE RECORDS SUMMARY | 2024-10-10 12:11 | XMS_ITS | Encounter Summary ---
Author Organization [facility] Address [address] [facility] [place] [address] Care Team Providers Care Meter Attendant Name Role Phone Chele Mena MD Primary Care Provider Birgit Whipple MD Unavailable [phone] Dragan Ritter MD Unavailable Birgit Whipple MD Unavailable Encounter Details Date Type Department Care Team (Late st Contact Info) Description 10/08/2024 MyC Medical Advice Physicians [facility] Ep[facility]psy Care [address], [address] [place] [address] Birgit Whipple MD [address] [place], [place] [address] Social History Tobacco Use Types Packs/Day Years [...] Sex Assigned at Female 04/04/2021 11:57 AM PUTTY AND PATCH WORKER Legal Sex Female 4:19 AM PUTTY AND PATCH WORKER Gender Identity Female 04/04/2021 11:57 AM PUTTY AND PATCH WORKER Sexual Orientation Not on file documented as of this encounter Plan of Treatment Upcoming Encounters Date Type Department Care Team (Late st Contact Info) Description 07/13/2025 10:30 AM CDT Office Visit [facility] [address], [address] [place] [address] Birgit Whipple MD [address] [place] [address] documented as of this encounter Visit Diagnoses Not on filedocumented in this encounter Additional Health Concerns Assessment Noted Time PHQ-9 Depression Total Score: 3 04/27/19 23 7:00 AM PUTTY AND PATCH WORKER documented as of this encounter Care Teams Meter Attendant Relationship Specialty Start Date End Date Chele Mena MD [facility] [address] [place] [address] PCP - General Internal Medicine 11/28/12 Birgit Whipple MD [facility] [address] [place] [address] Neurology 06/16/14 Dragan Ritter MD [facility] [address] [place] [address] Urology 06/10/17 Birgit Whipple MD [address] [place] [address] Assigned Neuroscience Provider 04/03/20 documented as of this encounter
--- OUTSIDE RECORDS SUMMARY | 2024-10-10 12:11 | XMS_ITS | Clinical Summary ---
Author Organization [facility] Address [address] [place] [address] Care Team Providers Care Timber Management Specialist Name Role Phone Chele Mena MD Primary Care Provider [phone] Mae Almeida Unavailable [phone] Allergies Active Allergy Reactions Criticality Noted [...] times daily. 60 tablet 0 6 Active Bltbw-4-PXP-EPA -Fish Oil (FISH OIL) 1,000 mg (120 [...] 05/02/2012 Delirium 12/24/2009 05/02/2012 Encounters Date Type Department Care Team Description 08/24/2024 Lab Requisition [facility] [phone] Kahlil Fair MD from Last 3 Months Immunizations Immunization Administration Dates Next Due AMB INFLUENZA, IIV4 (AGE=>6M OS) MDV (Flu Clinic Only) 11/09/2015,12/09/2014,11/09/2013,2012,11/21/2012 COVID-19 vaccine (Breathing BuildingsBio NTech 30mcg/0.3mL) PF, MDV 05/07/2020,04/16/2020 Influenza A [...] Name Comments Other Father at 51yo of [place] Cancer-breast Maternal Aunt mothers twin dx age [...] on file Legal Sex Female 5:24 AM BUSINESS CENTER ATTENDANT Gender Identity Not on file Sexual Orientation Not on file Obstetrics History Last Filed Vital Signs Vital Sign Reading Time Taken Comments Blood Pressure 153/85 03/09/2021 9:54 AM BUSINESS CENTER ATTENDANT Pulse 78 03/09/2021 9:54 AM BUSINESS CENTER ATTENDANT Temperature 36.7 C (98 F) 03/09/2021 9:54 AM BUSINESS CENTER ATTENDANT Respiratory Rate 20 05/09/2020 9:51 AM CDT Oxygen Saturation 97% 03/09/2021 9:54 AM BUSINESS CENTER ATTENDANT Inhaled Oxygen Concentration - - Weight 125.5 kg (276 lb 9.6 oz) 03/09/2021 9:54 AM BUSINESS CENTER ATTENDANT Height 162.6 cm (5' 4) 04/02/2018 10:1 9 AM BUSINESS CENTER ATTENDANT Body Mass Index 47.48 04/02/2018 10:19 AM BUSINESS CENTER ATTENDANT Plan of Treatment Health Maintenance Due Date [...] 11/30/2020, 05/07/2020, Additional history exists Influenza Vaccine (#1) 2024 9, 01/25/2018, 12/09/2017, Additional history exists Tetanus booster 12/05/2028 12/05/2018, 10/27, 11/21/2012 Pneumococcal series for age 50+ Completed 10/23/2017, 04/07/2015, 12/01/2013, Additional history exists Zoster (shingles) series for age 50+ Completed 11/13/2018, 08/07/2018, 10/23/2017, Additional history exists Hepatitis B series for 19+ Aged Out N o longer eligible based on patient's age to complete this topic Medical Devices Implanted Type Area Three Dimensional Art Instructor Device Identifier Shelf Expiration Date Model / Serial / Lot [id number] 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 Implanted:Qty: 1 on 01/29/2011 at [facility] Explanted:at [facility] (Quantity not on file) Right: Breast [employer] - [employer] 09/26/2014 133MX-15-T / [id number] / Description:TISSUE QUAIL FARMER [id number] 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 Implanted:Qty: 1 on 01/29/2011 at [facility] Explanted:at [facility] (Quantity not on file) Left: Breast [employer] - [employer]amed 10/13/2014 133MX-15-T / [id number] / Description:TISSUE QUAIL FARMER [id number] [id number] Mammary 700cc [[id number]] Implanted:Qty: 1 on 08/28/2011 at [facility] Explanted:at [facility] (Quantity not on file) Right: Breast [employer] [id number] # / [id number] Implnt Mammary 700cc - [id number] Implanted:Qty: 1 on 08/28/2011 at [facility] Explanted:at [facility] (Quantity not on file) Left: Breast [employer] [id number] # / [id number] / [id number] 7breast 600cc Memorygel Rnd High Smooth Silcn Implanted:Qty: 1 on 02/12/2018 by Arin Stiles MD at [facility] Explanted:at [facility] (Quantity not on file) Left: Breast [employer] 10/11/2021 [id number] # / [id number] Procedures Procedure Name Priority Date/Time Associated Diagnosis Comments CBC W PLT NO DIFF Routine 08/25/2024 8:2 5 AM CDT Metabolic encephalopathy Abnormal results of liver function studies Unspecified diastolic (congestive) heart failure (HC) BASIC METABOLIC PANEL Routine 08/25/2024 8:25 AM CDT Metabolic encephalopathy Abnormal results of liver function studies Unspecified diastolic (congestive) heart failure (HC) HEPATIC FUNCTION PANEL Routine 08/25/2024 8:25 AM CDT Metabolic encephalopathy Abnormal results of liver function studies Unspecified diastolic (congestive) heart failure (HC) DIGOXIN Routine 08/25/2024 8:25 AM CDT Metabolic encephalopathy Abnormal results of liver function studies Unspecified diastolic (congestive) heart failure (HC) from Last 3 Months Results * (ABNORMAL) CBC W PLT NO DIFF (08/25/2024 8:25 AM CDT) Pathologist [facility] WHITE BLOOD COUNT 7.7 4.5 - 11.0 thou/cu mm 08/25/2024 9:28 AM T [facility] RED BLOOD COUNT 5.02 4.00 - 5.20 mil/cu mm 08/25/2024 9:28 AM [facility] HEMOGLOBIN 15.1 12.0 - 16.0 g/dL 08/25/2024 9:28 AM [facility] HEMATOCRIT 46.9 33.0 - 51.0 % 08/25/2024 9:28 AM [facility] MCV 93 80 - 100 fL 08/25/2024 9:28 AM [facility] MCH 30.1 26.0 - 34.0 pg 08/25/2024 9:28 AM [facility] MCHC 32.2 32.0 - 36.0 g/dL 08/25/2024 9:28 AM [facility] RDW 16.7(H) 11.5 - 15.5 % 08/25/2024 9:28 AM [facility] PLATELET COUNT 273 140 - 440 thou/cu mm 08/25/2024 9:28 AM [facility] MPV 10.4 6.5 - 11.0 fL 08/25/2024 9:28 AM [facility] Blood BLOOD SPECIMEN / Unknown Butterfly / Unknown 08/25/2024 8:25 AM CDT 08/25/2024 9:14 AM CDT us Kahlil Fair MD HEMATOLOGY Final Result Performing Organization Address City/[facility]/ZIP Co de Phone Number [facility] [address] [place] [address] * DIGOXIN (08/25/2024 8:25 AM CDT) Pathologist [facility] DIGOXIN 0.8 0.8 - 2.0 ng/mL 08/25/2024 10:01 AM [facility] DATE OF LAST DOSE Not Given 08/25/2024 10:01 AM [facility] TIME OF LAST DOSE Not Given 08/25/2024 10:01 AM [facility] Blood BLOOD SPECIMEN / Unknown Butterfly / Unknown 08/25/2024 8:25 AM CDT 08/25/2024 9:14 AM CDT Kahlil Fair MD CHEMISTRY Final Result Performing Organization Address [facility] Co de Phone Number [facility] [address] [place] [address] * (ABNORMAL) HEPATIC FUNCTION PANEL (08/25/2024 8:25 AM CDT) [facility] ALBUMIN 3.3(L) 4.0 - 4.9 g/dL 08/25/2024 9:45 AM [facility] PROTEIN,TOTAL 7.2 6.0 - 8.0 g/dL 08/25/2024 9:45 AM [facility] BILIRUBIN,TOTAL 0.4 0.0 - 1.2 mg/dL 08/25/2024 9:45 AM [facility] BILIRUBIN,DIRECT 0.2 0.0 - 0.2 mg/dL 08/25/2024 9:45 AM [facility] BILIRUBIN,INDIRE CT 0.2 0.2 - 0.8 mg/dL 08/25/2024 9:45 AM [facility] ALK PHOSPHATASE 121(H) 35 - 104 IU/L 08/25/2024 9:45 AM [facility] ALT (SGPT) 19 10 - 35 IU/L 08/25/2024 9:45 AM [facility] AST (SGOT) 37(H) 10 - 35 IU/L 08/25/2024 9:45 AM [facility] Blood BLOOD SPECIMEN / Unknown Butterfly / Unknown 08/25/2024 8:25 AM CDT 08/25/2024 9:14 AM CDT us Kahlil Fair MD CHEMISTRY Final Result [facility] [address] [place] [address] * (ABNORMAL) BASIC METABOLIC PANEL (08/25/2024 8:25 AM CDT) SODIUM 137 136 - 145 mmol/L 08/25/2024 9:38 AM [facility] POTASSIUM 4.9 3.5 - 5.1 mmol/L 08/25/2024 9:38 AM [facility] CHLORIDE 101 98 - 107 mmol/L 08/25/2024 9:38 AM [facility] CO2,TOTAL 22 22 - 29 mmol/L 08/25/2024 9:38 AM [facility] ANION GAP 14 5 - 18 08/25/2024 9:38 AM [facility] GLUCOSE 145(H) 70 - 99 mg/dL 08/25/2024 9:38 AM [facility] CALCIUM 9.1 8.8 - 10.4 mg/dL 08/25/2024 9:38 AM [facility] Comment: Reference ranges for this test were updated on 12/31/2023 to reflect our healthy population more accurately. Reference range changes are not retroactively applied to results, but previous results using the same methodology can be interpreted in the context of the new reference range. BUN 13 8 - 23 mg/dL 08/25/2024 9:38 AM [facility] CREATININE 0.59 0.50 - 0.90 mg/dL 08/25/2024 9:38 AM [facility] BUN/CREAT RATIO 22(H) 10 - 20 9:38 AM CDT [facility] eGFR >90 >90 mL/min/1. 73m2 08/25/2024 9:38 AM CDT [facility] Comment:As of 2021, eG FR is calculated by the CKD-EPI creatinine equation without race adjustment. eGFR can be influenced by muscle mass, exercise, and diet. The reported eGFR is an estimation only and is only applicable if the renal function is stable. Blood BLOOD SPECIMEN / Unknown Butterfly / Unknown 08/25/2024 8:25 AM CDT 08/25/2024 9:14 AM CDT Kahlil Fair MD CHEMISTRY Final Result [facility] [address] [place] [address] from Last 3 Months Additional Health Concerns Infection Onset Date Last Indicated CLOSTRIDIUM DIFFICILE 04/03/2018 04/03/2018 Insurance MEDICARE PART B HB ONLY MEDICARE PART A HB ONLY MEDICA [employer] SOL[employer] MEDICARE PB ONLY MEDICARE PPS Advance Directives Documents on File Type Date Recorded Patient Unstacker Expl anation Healthcare Directive 01/29/2011 09/20/10 * [...] AM 01/02/2012 1:55 PM Care Teams Timber Management Specialist Relationship Specialty Start Date End Date Chele Mena MD [address] [place] [address] PCP - General 11/24/12 Mae Almeida AuD [address] [place] [address] Audiology 11/24/12
--- OUTSIDE RECORDS SUMMARY | 2024-10-10 12:11 | XMS_ITS | CCD ---
Author Name Interface, [id number] lity Address [address] [facility] [address] [address] Organization [facility] Address [address] [facility] [address] [place] [address] Care Team Providers Care Health Occupations Teacher Name Role Phone Linsey HERNDON, Arin márquez [...] 1.0 CAPSULE(S ) daily 08/11 inactive 2018 Insulin Aspart Subcutaneous Pen sub-Q 8.0 UNIT as directed 8 units TID 08/11 inactive 2018 Aspirin Oral PO 1.0 TABLET(S) daily 2018 active 2018 Pregabalin Oral PO 1.0 CAPSULE(S ) TID 2018 active 2018 Simvastatin Oral PO 1.0 TABLET(S) daily 2018 active 2018 Acetaminophen Oral PO 2.0 TABLET(S) as directed 2018 active 2018 Miscellaneous Drug PO 1.0 TABLET(S) daily 2018 active 2018 Metoprolol Oral (Tartrate) PO 50.0 MG BID 2018 active 2018 Nystatin Topical Powder Topical 1.0 GRAM [...]
--- OUTSIDE RECORDS SUMMARY | 2024-10-10 12:11 | XMS_ITS | Encounter Summary ---
Author Organization [facility] Address [address] [place] [address] Care Team Providers Care Ultrasound Sonographer Name Role Phone Chele Mena MD Primary Care Provider Birgit Whipple MD Unavailable Dragan Ritter MD Unavailable [phone] Birgit Whipple MD Unavailable Encounter Details Date Type Department Care Team (Late st Contact Info) Description 04/13/2022 External Order Results [facility] [address] [place] [address] Nader Colon MD [facility] [address] [id number] Focal epilepsy (H); Tremor Social History Tobacco Use Types Packs/Day Years Used Date Smoking Tobacco: Never Smokeless Tobacco: Never Alcohol Use Standard Drinks/Week Comments No 0 (1 standard drink = 0.6 oz pur e alcohol) PHQ-2 Answer Date Recorded PHQ-2 Score 0 03/29/2020 Comments No Sex and Gender Information Value Date Recorded Sex Assigned at Female 04/04/2021 11:57 AM MEDICAL OFFICE COORDINATOR Legal Sex Female 4:19 AM MEDICAL OFFICE COORDINATOR Gender Identity Female 04/04/2021 11:57 AM MEDICAL OFFICE COORDINATOR Sexual Orientation Not on file documented as of this encounter Plan of Treatment Upcoming Encounters Date Type Department Care Team (Late st Contact Info) Description 07/13/2025 10:30 AM CDT Office Visit [facility] [address], [address] [place] [phone] Birgit Whipple MD [address] [place] [address] documented as of this encounter Procedures Procedure Name Priority Date/Time Associated Diagnosis Comments VALPROIC ACID FREE AND TOTAL Routine 04/13/2022 3:26 PM MEDICAL OFFICE COORDINATOR Focal epilepsy (H) VALPROIC ACID Routine 04/13/2022 3:26 PM MEDICAL OFFICE COORDINATOR Focal epilepsy (H) PRIMIDONE LEVEL Routine 04/13/2022 3:26 PM MEDICAL OFFICE COORDINATOR Tremor PHENOBARBITAL LEVEL Routine 04/13/2022 3 :26 PM MEDICAL OFFICE COORDINATOR documented in this encounter Results * Valproic acid (04/13/2022 3:26 PM MEDICAL OFFICE COORDINATOR) VALPROIC ACID LEVEL (EXTERNAL) 50 50 - 100 mcg/mL NON-INTERFACED (ONBASE SCANS) Blood 04/13/2022 3:26 PM MEDICAL OFFICE COORDINATOR Narrative YUKO PFT - 04/16/2022 1:02 PM MEDICAL OFFICE COORDINATOR Verified by Christine Barber on 04/16/2022. us Birgit Whipple MD LAB - BLOOD ORDERABLES E dited Result - Final FRANCISDenny PFT NON-INTERFACED (ONBASE SCANS) * (ABNORMAL) Phenobarbital level (04/13/2022 3:26 PM MEDICAL OFFICE COORDINATOR) PHENOBARBITAL LEVEL (EXTERNAL) 7.7(L) 15.0 - 40.0 ug/mL NON-INTERFACE D (ONBASE SCANS) Blood BLOOD SPECIMEN / Unknown 04/13/2022 3:26 PM MEDICAL OFFICE COORDINATOR Narrative BREEZE PFT - 04/16/2022 11:59 AM MEDICAL OFFICE COORDINATOR Verified by Christine Barber on 04/16/2022. us Birgit Whipple MD LAB - BLOOD ORDERABLES E dited Result - Final BREEZE PFT NON-INTERFACED (ONBASE SCANS) * Primidone level (04/13/2022 3:26 PM MEDICAL OFFICE COORDINATOR) PRIMIDONE LEVEL (EXTERNAL) 5.4 5.0 - 12.0 ug/mL NON-INTERFACED (ONBASE SCANS) Blood 04/13/2022 3:26 PM MEDICAL OFFICE COORDINATOR Narrative BREEZE PFT - 04/16/2022 11:59 AM MEDICAL OFFICE COORDINATOR Verified by Christine Barber on 04/16/2022. us Birgit Whipple MD LAB - BLOOD ORDERABLES E dited Result - Final BREEZE PFT NON-INTERFACED (ONBASE SCANS) * Valproic acid free (04/13/2022 3:26 PM MEDICAL OFFICE COORDINATOR) VALPROIC ACID FREE (EXTERNAL) 10 5 - 25 mcg/mL NON-INTERFACED (ONBASE SCANS) Blood 04/13/2022 3:26 PM MEDICAL OFFICE COORDINATOR Narrative BREEZE PFT - 04/16/2022 11:51 AM MEDICAL OFFICE COORDINATOR Verified by Christine Barber on 04/16/2022. us [...] Out COVID-19 03/25/2024 03/25/2024 03/25/2024 2:35 PM MEDICAL OFFICE COORDINATOR documented as of this encounter Care Teams Ultrasound Sonographer Relationship Specialty Start Date End Date Chele Mena MD [facility] [address] [place] [address] PCP - General Internal Medicine 11/28/12 Birgit Whipple MD [facility] [address] [place] [address] Neurology 06/16/14 Dragan Ritter MD [facility] [address] [place] [address] Urology 06/10/17 Birgit Whipple MD [address] [place] [address] Assigned Neuroscience Provider 04/03/20 documented as of this encounter
--- OUTSIDE RECORDS SUMMARY | 2024-10-10 12:13 | XMS_ITS | Clinical Summary ---
[facility] Address [address] [place] [address] Care Team Providers Care Planned Giving Officer Name Role Phone Andrew Garvey MD Primary Care Provider [phone] Source Comments You are receiving this document [...] for each transition of care or referral. [facility] Active Allergy Reactions Criticality Noted Date [...] 50 MG tablet 12/20/2020 Active nystatin (MYCOSTATIN) 739521 UNIT/GM powder 01/05/2021 Active pregabalin (LYRICA) 50 [...] IIV3 (Trivalent) F luana Highdose, 65+ Yrs (39502) 11/14/2018,12/09/2017,11/09/2013 Influenza IIV4 (Quadrivalent ) 0.5mL (74589) 11/09/2015 Influenza IIV4 (Quadrivalent ) Fluad, 65+ [...] Sex Assigned at Female 01/02/2021 9:25 PM SHANK PAPERER Legal Sex Female 5:01 AM CDT Gender Identity Female 01/02/2021 9:25 PM SHANK PAPERER Sexual Orientation Not on file Plan of Treatment Health Maintenance Due Date Last Done Comments Hep C Screening (Preventive Services) 1945 Medicare Annual Wellness Visit 1945 Pneumococcal PCV20 Immunization Discussion 1945 Dexa 2010 RSV Vaccine (1 - 1-dose 75+ series) 2020 HepA Vaccine (2 of 2 - Risk 2-dose series) 07/26/2021 01/25/2021 COVID-19 Vaccine ( season) 2023 11/30/2020, 05/07/2020, 04/16/2020 Influenza Vaccine (#1) 2024 , 11/14/2018, 01/25/2018, Additional history exists DTaP/Tdap/Td Vaccine [...] age to complete [place] [id number] MEDICARE Care Teams Planned Giving Officer Relationship Specialty Start Date End Date Andrew Garvey MD [address] [place] [address] PCP - General 10/05/99
--- NOTE | 2024-10-10 12:29 | ED.GENADULT ---
HPI - General Adult General Time Seen by Provider: 12:29 Date Seen: 10/10/24 Chief complaint: Diabetic Related Problem Stated complaint: Hypoglycemic Time Seen by Provider: 10/10/24 12:29 Source: patient, EMS and RN notes reviewed Mode of arrival: EMS Limitations: no limitations History of Present Illness HPI narrative: Kisha is a very pleasant 79-year-old female with a history of diabetes, chronic anticoagulation, atrial fibrillation, seizure disorder and hypertension who comes to the emergency room via EMS after her blood sugar was found to be elevated over 400. Kisha has been feeling well after recent discharge from longterm for weakness secondary to UTI, metabolic encephalopathy who is now at home and being visited by home health care. Her blood sugars have been around 200-240 and it was 244 if for breakfast. After breakfast states that her blood sugar was 361 and that he was not sure it was reading correctly. He called EMS and they are reading was about 400. Because of this she was transported to our hospital for further evaluation. Kisha notes that many of her medications had been changed during her hospitalization and subsequent longterm stay. In regards to her blood sugar she takes this once daily. She is currently on insulin Lantus 10 units at bedtime no other medications listed in her current list. She denies a cough cold congestion fever chills dysuria hematuria. Does not state that she had a UTI during her hospitalization. States they had waffles with sugar free syrup this morning and coffee. Does not feel that her meals last night or this morning were abnormal. Related Data Home Medications ?Medication ?Instructions ?Recorded ?Confirmed cholecalciferol (vitamin D3) 25 25 mcg PO DAILY 11/02/21 09/23/24 mcg (1,000 unit) capsule multivitamin with minerals 1 tab PO DAILY 11/02/21 09/23/24 omega 0-ewe-kbi-fish oil 100 1 cap PO DAILY 11/02/21 09/23/24 mg-160 mg-1,000 mg capsule (Fish Oil) divalproex 250 mg tablet,extended 750 mg PO BID 12/21/22 09/23/24 release 24 hr Lactobacillus acidophilus 0.5 mg 100 mmu cells PO BID 08/16/24 09/23/24 (100 million cell) tablet atorvastatin 20 mg tablet 20 mg PO HS 08/16/24 09/23/24 insulin glargine 100 unit/mL (3 10 unit subcut DAILY@12 08/16/24 09/23/24 mL) subcutaneous pen (Lantus Solostar U-100 Insulin) Previous Rx's ?Medication ?Instructions ?Recorded acetaminophen 500 mg tablet 1,000 mg (2 x 500 mg) PO Q6H PRN 03/12/24 #120 tabs blood sugar diagnostic (Accu-Chek #100 ea 06/16/24 Guide test strips) lancets (Accu-Chek Softclix #100 ea 06/16/24 Lancets) digoxin 250 mcg (0.25 mg) tablet 250 mcg PO DAILY #90 tabs 06/23/24 torsemide 20 mg tablet 20 mg PO DAILY@0800 #90 tabs 06/23/24 apixaban 5 mg tablet (Eliquis) 5 mg PO BID #180 tabs 07/27/24 pregabalin 100 mg capsule (Lyrica) 100 mg PO QAM #30 caps 08/19/24 pregabalin 50 mg capsule 50 mg PO .6 Pm, 10PM #60 caps 08/19/24 primidone 50 mg tablet 50 mg PO DAILY@08,12 #60 tabs 08/19/24 potassium chloride 20 mEq 20 meq PO BID #60 tabs 08/27/24 tablet,extended release pen needle, diabetic 31 gauge x #100 ea 09/29/2405/10 metoprolol tartrate 50 mg tablet 50 mg PO BID #180 tabs 09/30/24 Allergies Allergy/AdvReac Type Severity Reaction Status Date / Time oxcarbazepine Allergy Severe Rash Verified 08/15/24 03:52 lacosamide Allergy Intermediate hallucinati Verified 08/15/24 03:52 ons Bee venom Allergy Unknown Uncoded 08/15/24 03:52 Review of Systems Status of ROS: Reports: 10 or more systems reviewed and unremarkable except as noted in History and below Const: Denies: fever or fatigue Eyes: Denies: change in vision or blurry vision ENMT: Denies: throat pain, neck pain or nasal congestion Cardio: Denies: chest pain, palpitations, lightheadedness or shortness of breath with exertion Resp: Denies: shortness of breath or cough GI: Denies: abdominal pain, nausea, vomiting or diarrhea : Denies: painful urination, urinary frequency, urinary urgency or blood in urine Musculo: Denies: back pain, neck pain or extremity pain Endo: Denies: fatigue [facility] Medical History Obstructive sleep apnea ?G47.33 - Obstructive sleep apnea (adult) (pediatric) (ICD-10) Diabetes mellitus ?E11.9 - Type 2 diabetes mellitus without complications (ICD-10) Abnormal LFTs ?R79.89 - Other specified abnormal findings of blood chemistry (ICD-10) Chronic anticoagulation ?Z79.01 - FPC (current) use of anticoagulants (ICD-10) Discharge planning issues ?Z75.8 - Other problems related to medical facilities and other health care (ICD-10) Tremor ?R25.1 - Tremor, unspecified (ICD-10) Atrial fibrillation ?I48.91 - Unspecified atrial fibrillation (ICD-10) Gastroesophageal reflux disease (11/21/12) ?K21.9 - Gastro-esophageal reflux disease without esophagitis (ICD-10) Morbid obesity ?E66.01 - Morbid (severe) obesity due to excess calories (ICD-10) Hyperlipidemia (11/21/12) ?E78.5 - Hyperlipidemia, unspecified (ICD-10) Transaminitis ?R74.01 - Elevation of levels of liver transaminase levels (ICD-10) Breast cancer ?C50.919 - Malignant neoplasm of unspecified site of unspecified female breast (ICD-10) History of malignant neoplasm of breast ?Z85.3 - Personal history of malignant neoplasm of breast (ICD-10) History of ischemic colitis (2017) ?Z87.19 - Personal history of other diseases of the digestive system (ICD-10) Encounter for screening for COVID-19 ?Z11.52 - Encounter for screening for COVID-19 (ICD-10) Surgical History Status post total right knee replacement ?Z96.651 - Presence of right artificial knee joint (ICD-10) Status post total knee replacement ?Z96.659 - Presence of unspecified artificial knee joint (ICD-10) History of bilateral mastectomy ?Z90.13 - Acquired absence of bilateral breasts and nipples (ICD-10) Social History Narrative: Patient has had progressive disability as outlined above. She has spent almost half of past 6 months in the longterm or in the hospital. The rest the time she has been getting home an outpatient therapy. Despite this she seems to be declining in her functional status. She is a nonsmoker. She does not drink alcohol. No recreational drug use. Code status is full. 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 What is your current living situation?: I presently have a place to live Problems where you live: no known problems Problems where you live details: n/a In the past 12 months, utilities in danger of being shut off: no In past 12 months, lack of transportation kept you from medical appts, meetings, work, or getting things needed for daily living: no In the past 12 mos, have been you worried that your food would run out before you had money to buy more?: never true In the past 12 mos, the food you bought just didn't last and you didn't have money to buy more?: never true Highest level of school completed/degree received: Bachelor's degree Smoking Status: Never smoker How often do you have a drink containing alcohol: never AUDIT-C Alcohol total score: 0 Non-prescribed substance use: denies use How often does anyone, including family, friends and others, physically hurt you: never How often does anyone, including family, friends and others, insult or talk down to you: never How often does anyone, including family, friends and others, threaten you with harm: never How often does anyone, including family, friends and others, scream or curse at you: never service: No Exam Narrative: Exam Narrative: Alert and oriented. No acute distress. Good color. External ears eyes nose clear mentation and speech normal. Face symmetrical. Neck is supple. Oral cavity with moist mucous membranes. Heart with regular rate and rhythm at this time. Lungs are clear bilaterally. Abdomen is obese soft nontender. Lower extremities show no erythema skin changes. Const: Vital Signs, click to edit/add: Vital Signs - 24 hr 10/10/24 12:14 10/10/24 13:01 10/10/24 13:15 Temperature 96.8 F L Pulse Rate 81 74 Pulse Rate [Pulse Oximeter] 77 Respiratory Rate 18 Blood Pressure Blood Pressure [Ri ght Upper Arm] 111/45 L Pulse Oximetry 95 96 92 Oxygen Delivery Me thod Room Air 10/10/24 13:41 10/10/24 13:42 10/10/24 13:45 Temperature Pulse Rate 78 73 73 Pulse Rate [Pulse Oximeter] Respiratory Rate 18 Blood Pressure 113/70 Blood Pressure [Ri ght Upper Arm] Pulse Oximetry 96 97 98 Oxygen Delivery Me thod Room Air 10/10/24 14:00 10/10/24 14:15 10/10/24 14:30 Temperature Pulse Rate 71 69 78 Pulse Rate [Pulse Oximeter] Respiratory Rate Blood Pressure Blood Pressure [Ri ght Upper Arm] Pulse Oximetry 93 92 97 Oxygen Delivery Me thod 10/10/24 14:45 10/10/24 15:00 10/10/24 15:15 Temperature Pulse Rate 72 71 66 Pulse Rate [Pulse Oximeter] Respiratory Rate Blood Pressure Blood Pressure [Ri ght Upper Arm] Pulse Oximetry 97 96 95 Oxygen Delivery Me thod 10/10/24 15:30 10/10/24 15:35 10/10/24 15:45 Temperature Pulse Rate 61 66 Pulse Rate [Pulse Oximeter] Respiratory Rate 18 Blood Pressure 119/48 L Blood Pressure [Ri ght Upper Arm] Pulse Oximetry 95 94 Oxygen Delivery Me thod Room Air 10/10/24 16:00 10/10/24 16:15 10/10/24 16:30 Temperature Pulse Rate 69 78 61 Pulse Rate [Pulse Oximeter] Respiratory Rate Blood Pressure Blood Pressure [Ri ght Upper Arm] Pulse Oximetry 95 95 96 Oxygen Delivery Me thod 10/10/24 16:32 10/10/24 16:45 10/10/24 17:00 Temperature Pulse Rate 72 71 70 Pulse Rate [Pulse Oximeter] Respiratory Rate Blood Pressure Blood Pressure [Ri ght Upper Arm] Pulse Oximetry 95 96 95 Oxygen Delivery Me thod 10/10/24 17:02 10/10/24 17:15 10/10/24 17:30 Temperature Pulse Rate 66 67 69 Pulse Rate [Pulse Oximeter] Respiratory Rate 18 Blood Pressure 104/70 Blood Pressure [Ri ght Upper Arm] Pulse Oximetry 95 96 97 Oxygen Delivery Me thod Room Air Documenting provider has reviewed patient's vital signs: yes Course Course ED Course: Differential diagnosis includes but is not limited due to underlying infection, under dosing of Lantus. What I did find this patient had been discharged from the hospital with Jardiance 10 mg daily but I do not see that that was listed on a follow-up visit to her primary nor is it on today's medication list. Will need to find out why she is not currently on this medication. She likely needs oral meds to help control her blood sugar. Will order labs in the meantime CBC, comprehensive, urinalysis. Reevaluation(s) Reevaluation #1: Blood sugars initially decreased but then went back up and now have decreased again. Will give patient additional 6 units of regular insulin. Reevaluation #2: Patient is now down to 294. This is even after having some p.o. intake. Discussed with family re starting and Jardiance as this seemed to have worked managing glucose in the past. No evidence of acidosis at this time. No evidence of infection with a negative urine, clear lung sounds, absence of fever. Family noted that patient had been diagnosed with a UTI although very mild in the previous hospitalization. They were worried that this medication may have something to do with that and indeed it does increase risk factors however, patient will need to be on some sort of oral diabetic medication. This particular medication had been prescribed at discharge by our internal medicine physician. It had been stopped at the longterm for unknown reasons. I think we should reinitiate this medication and have patient follow-up with her primary MD. Both patient her daughter and agreeable to this plan. Vital Signs Vital signs: Initial Vital Signs Temperature 96.8 F L 10/10/24 12:14 Temperature Source Temporal Artery Scan 10/10/24 12:14 Pulse Rate 77 10/10/24 12:14 Respiratory Rate 18 10/10/24 12:14 Blood Pressure 111/45 L 10/10/24 12:14 Blood Pressure Mean 67 L 10/10/24 12:14 Blood Pressure Position Supine 10/10/24 12:14 Pulse Oximetry 95 10/10/24 12:14 Oxygen Delivery Method Room Air 10/10/24 12:14 Vital Signs Temperature 96.8 F L 10/10/24 12:14 Pulse Rate 77 10/10/24 12:14 Respiratory Rate 18 10/10/24 12:14 Blood Pressure 111/45 L 10/10/24 12:14 Pulse Oximetry 95 10/10/24 12:14 Oxygen Delivery Method Room Air 10/10/24 12:14 Temperature 96.8 F L 10/10/24 12:14 Pulse Rate 69 10/10/24 17:30 Respiratory Rate 18 10/10/24 17:02 Blood Pressure 104/70 10/10/24 17:02 Pulse Oximetry 97 10/10/24 17:30 Oxygen Delivery Method Room Air 10/10/24 17:02 Medications Administered Medications: Discontinued Medications Generic Name Dose Route Start Last Admin Trade Name Abhilash PRN Reason Stop Dose Admin Empagliflozin 10 mg 10/10/24 16:49 10/10/24 17:30 Empagliflozin 10 Mg Tablet PO 10/10/24 16:50 10 mg ONCE ONE Administration Insulin Human Regular 10 unit 10/10/24 14:10 10/10/24 14:26 Insulin Regular, Human 100 Unit/Ml Vial SUBCUT 10/10/24 14:11 10 unit ONCE ONE Administration Insulin Human Regular 6 unit 10/10/24 16:14 10/10/24 16:26 Insulin Regular, Human 100 Unit/Ml Vial SUBCUT 10/10/24 16:15 6 unit ONCE ONE Administration Medical Decision Making MDM Narrative Medical decision making narrative: 1. Hyperglycemia-blood sugars have gradually been creeping up after having discontinued yd inside at the longterm. I hesitate to alter her dose of Lantus as this is a nighttime medication and I would have worries about her becoming too low. Her goal is to have her blood sugar around 200 at this time. Have given her 1st dose of Jardiance in the ED. Would like her to continue that daily until they have such a time as to see Dr. Mena in the clinic. He may change the medication at that time or discontinue it altogether. Would request that Kisha have her blood sugar checked especially before bedtime to ensure that has not gone too low. If it is below 100 suggest a snack tonight. 2. Disposition-home at this time. No evidence of infection. Patient was essentially asymptomatic to her hyperglycemia. Throughout this afternoon she received regular insulin a total of 16 units. She will return for worsening symptoms and as needed. Medical Records Medical records reviewed: Yes I reviewed the patient's medical records Lab Data Lab results reviewed: Yes I reviewed the patient's lab results Labs: Lab Results 10/10/24 10/10/24 Range/Units 13:22 Unknown WBC 6.49 (4.50-11.00) K/uL RBC 4.23 (4.00-5.20) m/uL Hgb 12.9 (12.0-16.0) gm/dL Hct 39.1 (33.0-51.0) % MCV 92 (80-100) fL MCH 31 (26-34) pg MCHC 33 (32-36) gm/dL RDW Coeff of Valerie 16.2 H (11.5-15.5) % Plt Count 115 L (140-440) K/uL Neut % (Auto) 40.1 L (42.0-72.0) % Lymph % (Auto) 45.3 H (20-44) % [place] % (Auto) 11.1 H (0.0-11.0) % Eos % (Auto) 2.3 (0.0-7.0) % Baso % (Auto) 0.3 (0.0-3.0) % Neut # (Auto) 2.60 (1.7-7.0) K/uL Lymph # (Auto) 2.90 (0.90-2.90) K/uL [place] # (Auto) 0.70 (0.00-0.90) K/UL Eos # (Auto) 0.15 (0.00-0.50) K/uL Baso # (Auto) 0.02 (0.00-0.30) K/uL Abs Immat Gran (auto) 0.06 (0.00-0.30) K/uL Imm/Tot Granulo (auto) 0.9 % Sodium 132 L (135-149) mmol/L Potassium 4.4 (3.6-5.1) mmol/L Chloride 96 (96-114) mmol/L Carbon Dioxide 28 (20-32) mmol/L Anion Gap 8 (7-15) mEq/L BUN 23 (7-30) mg/dL Creatinine 0.7 (0.5-1.5) mg/dL Estimated Creat Clear 37.74 Estimated GFR 88 ml/min Glucose 434 H* (60-115) mg/dL Calcium 8.7 (8.4-10.6) mg/dL Total Bilirubin 0.5 (0.1-1.5) mg/dL AST 32 (12-35) U/L ALT 18 (4-35) U/L Alkaline Phosphatase 90 (40-150) U/L C-Reactive Protein 0.7 (0.5-1.0) mg/dL Total Protein 6.7 (6.0-8.3) g/dL Albumin 3.4 (3.3-5.0) g/dL Urine Color Light yellow (Yellow) Urine Appearance Clear (Clear) Urine pH 5.5 (5.0-8.5) Ur Specific [place] <= 1.005 (1.000-1.030) Urine Protein Negative (Negative) Urine Glucose (UA) 2+ A (Negative) Urine Ketones Negative (Negative) Urine Blood Negative (Negative) Urine Nitrite Negative (Negative) Urine Bilirubin Negative (Negative) Urine Urobilinogen 0.2 (0.2-1.0) Ur Leukocyte Esterase Negative (Negative) Urine RBC 0-2 (0-2) Urine WBC 0-2 (0-5) Ur Squamous Epith Cells Moderate A (None-Few) Urine Bacteria None (None) Discharge Plan Discharge Clinical Impression: Acute hyperglycemia Patient Disposition: Home, Self-Care Condition: Improved Additional Instructions: Continue Jardiance daily 10 mg. Continue your nighttime dose of Lantus 10 mg. Tonight, check blood sugar before going bed to ensure that it has not gone too low. Follow-up with Dr. Mena to see if he wants to continue these current medications or change them. Return to the emergency room for fever, worsening symptoms and as needed. Prescriptions: No Action cholecalciferol (vitamin D3) 25 mcg (1,000 unit) capsule 25 mcg PO DAILY Fish Oil 100-160-1,000 mg capsule 1 cap PO DAILY multivitamin with minerals Tablet 1 tab PO DAILY divalproex 250 mg tablet extended release 24 hr 750 mg PO BID digoxin 250 mcg (0.25 mg) tablet 250 mcg PO DAILY Qty: 90 3RF torsemide 20 mg tablet 20 mg PO DAILY@0800 Qty: 90 3RF acetaminophen 500 mg Tablet 1,000 mg PO Q6H PRNQty: 120 0RF atorvastatin 20 mg tablet 20 mg PO HS insulin glargine [Lantus Solostar U-100 Insulin] 100 unit/mL (3 mL) Insulin Pen 10 unit subcut DAILY@12 Lactobacillus acidophilus 0.5 mg (100 million cell) Tablet 100 mmu cells PO BID primidone 50 mg Tablet 50 mg PO DAILY@08,12 Qty: 60 0RF pregabalin 50 mg capsule 50 mg PO .6 Pm, 10PM Qty: 60 0RF pregabalin [Lyrica] 100 mg capsule 100 mg PO QAM Qty: 30 0RF (DME) Accu-Chek Guide test strips Strip See Rx Instructions .Route Qty: 100 3RF Rx Instructions: Patient to test once daily (DME) lancets [Accu-Chek Softclix Lancets] Misc See Rx Instructions .Route Qty: 100 3RF Rx Instructions: Patient to use one time daily Eliquis 5 mg tablet 5 mg PO BID Qty: 180 3RF potassium chloride 20 mEq tablet extended release 20 meq PO BID Qty: 60 2RF (DME) pen needle, diabetic 31 gauge x 3/16 needle See Rx Instructions .ROUTE .COMPLEX Qty: 100 0RF Dose Instruction: USE TO INJECT THREE TIMES DAILY Rx Instructions: USE TO INJECT ONCE DAILY metoprolol tartrate 50 mg tablet 50 mg PO BID Qty: 180 3RF Follow Up/Referrals: Chele Mena MD [Primary Care Provider, Internal Medicine] Stand Alone Forms: [facility]
[2024-10-10 13:42] LABS: Hematocrit 39.1 % (33.0-51.0); Hemoglobin* 12.9 gm/dL (12.0-16.0); Immature Granulocytes Abs Auto 0.06 K/uL (0.00-0.30); Immature Granulocytes Pct Auto 0.9 %; Mean Corpuscular HGB Conc 33 gm/dL (32-36); Mean Corpuscular Hemoglobin 31 pg (26-34); Mean Corpuscular Volume 92 fL (80-100); RDW Coefficient of Variation % 16.2 % (11.5-15.5); Red Blood Count 4.23 m/uL (4.00-5.20); White Blood Count* 6.49 K/uL (4.50-11.00)
[2024-10-10 13:44] LABS: Lymphocytes Absolute Auto 2.90 K/uL (0.90-2.90); Slide Review Reflex No
[2024-10-10 13:47] LABS: Appearance Urine Clear (Clear)
[2024-10-10 14:00] LABS: Albumin* 3.4 g/dL (3.3-5.0); Chloride* 96 mmol/L (96-114); Potassium* 4.4 mmol/L (3.6-5.1); Sodium* 132 mmol/L (135-149)
[2024-10-10 14:02] LABS: Blood Urea Nitrogen* 23 mg/dL (7-30); Creatinine* 0.7 mg/dL (0.5-1.5); Est. Creatinine Clearance* 37.74; Estimated Glomerular Filt Rate 88 ml/min
[2024-10-10 14:03] LABS: Alanine Aminotransferase* 18 U/L (4-35); Alkaline Phosphatase* 90 U/L (40-150); Anion Gap 8 mEq/L (7-15); Aspartate Amino Transferase* 32 U/L (12-35); Bilirubin Total* 0.5 mg/dL (0.1-1.5); Calcium* 8.7 mg/dL (8.4-10.6); Carbon Dioxide* 28 mmol/L (20-32); Total Protein* 6.7 g/dL (6.0-8.3)
[2024-10-10 14:08] LABS: Glucose* 434 mg/dL (60-115)
[2024-10-10] MEDS: INSULIN REGULAR, HUMAN 100 UNIT/ML VIAL 10 UNIT SUBCUT (14:26)
[2024-10-10] MEDS: INSULIN REGULAR, HUMAN 100 UNIT/ML VIAL 6 UNIT SUBCUT (16:26)
[2024-10-10] MEDS: EMPAGLIFLOZIN 10 MG TABLET PO (17:30)
== END 2024-10-10 18:36 | disposition home or self-care (01) ==
PROVIDERS: Emergency Provider Family Medicine; PCP Internal Medicine
DX: E11.65 Type 2 diabetes mellitus with hyperglycemia (principal); I48.91 Unspecified atrial fibrillation; I10 Essential (primary) hypertension; G40.909 Epilepsy, unspecified, not intractable, without status epilepticus; Z79.4 Long term (current) use of insulin; Z79.01 Long term (current) use of anticoagulants
CPT/HCPCS: 36415; 80053; 81001; 82962; 85025; 86140; 99283; 99284; J1815